=== PATIENT | female | born 1955 | race Caucasian/White ===

== ENCOUNTER → 2020-04-08 10:06 | Outpatient (BNVA) | payer OTHER, SELFPAY | PROVIDERS: Visit Provider Nurse Practitioner Family | DX: I10 Essential (primary) hypertension (principal); R68.89 Other general symptoms and signs; E11.9 Type 2 diabetes mellitus without complications; Z79.899 Other long term (current) drug therapy | CPT/HCPCS: 99214 ==

== ENCOUNTER → 2020-05-19 08:24 | Outpatient (BNVA) | payer OTHER, SELFPAY | PROVIDERS: PCP Internal Medicine; Visit Provider Internal Medicine Endocrinology, Diabetes & Metabolism | DX: E11.9 Type 2 diabetes mellitus without complications (principal); Z79.4 Long term (current) use of insulin; I10 Essential (primary) hypertension; E55.9 Vitamin D deficiency, unspecified; E66.3 Overweight | CPT/HCPCS: 82947; 99212 ==

== ENCOUNTER 2020-05-20 08:35 | Outpatient (REF) | payer OTHER, SELFPAY ==
[2020-05-20 10:40] LABS: Hematocrit 43.7 % (37-47); Hemoglobin 13.8 g/dl (12.0-16.0); Mean Corpuscular HGB Conc 31.6 g/dl (31.0-35.0); Mean Corpuscular Hemoglobin 27.9 pg (27.0-33.0); Mean Corpuscular Volume 88.3 fL (80-98); Mean Platelet Volume 11.4 fL (9.4-12.3); Platelet Count 304 X10*3/uL (160-400); Red Blood Count 4.95 X10*6/uL (4.20-5.50); Red Cell Distribution Width 13.5 % (11.0-16.0); White Blood Count 6.5 X10*3/uL (4.8-10.8)
[2020-05-20 11:28] LABS: Alanine Aminotransferase 15 U/L (0-31); Albumin Level 4.3 g/dL (3.5-5.0); Alkaline Phosphatase 50 U/L (39-117); Anion Gap 13 (12-20); Aspartate Amino Transferase 17 U/L (5-31); Bilirubin Total 0.7 mg/dL (0.0-1.0); Blood Urea Nitrogen 13 mg/dL (9-16); Calcium 9.1 mg/dL (8.4-10.2); Carbon Dioxide 30 mmol/L (22-29); Chloride 101 mmol/L (96-108); Cholesterol 176 mg/dL; Estimated Glomerular Filt Rate > 60; Glucose Fasting 140 mg/dL (60-99); HDL Cholesterol 69 mg/dL; LDL Cholesterol Calculated 95 mg/dl; Potassium 4.5 mmol/l (3.3-5.1); Sodium 139 mmol/L (135-145); Total Protein 7.5 g/dL (6.5-8.0); Triglycerides 62 mg/dL
[2020-05-20 11:44] LABS: Vitamin B12 192 pg/mL (200-900)
[2020-05-20 12:10] LABS: Creatinine Urine 123.69 mg/dL; Microalbum/Creatinine Ratio Ur 8.8 ug/mg cr
[2020-05-21 18:07] LABS: LDL Cholesterol Direct 92 mg/dL (<100)
[2020-05-27 14:17] LABS: Fructosamine 286 umol/L (205-285)
== END 2020-05-20 08:36 | disposition home or self-care (01) ==
LOC: HO.10HDL 08:35
PROVIDERS: Visit Provider Internal Medicine Endocrinology, Diabetes & Metabolism
DX: E11.9 Type 2 diabetes mellitus without complications (principal); Z79.4 Long term (current) use of insulin
CPT/HCPCS: 36415; 80053; 80061; 82043; 82607; 82985; 83721; 85027

== ENCOUNTER → 2020-06-25 14:24 | Outpatient (BNVA) | payer OTHER, SELFPAY | PROVIDERS: PCP Internal Medicine; Visit Provider Dietitian, Registered | DX: Z76.89 Persons encountering health services in other specified circumstances (principal) ==

== ENCOUNTER → 2020-07-28 07:24 | Outpatient (BNVA) | payer OTHER, SELFPAY | PROVIDERS: PCP Internal Medicine; Visit Provider Dietitian, Registered ==

== ENCOUNTER → 2020-09-08 09:51 | Outpatient (BNVA) | payer OTHER, SELFPAY | PROVIDERS: PCP Internal Medicine; Visit Provider Dietitian, Registered ==

== ENCOUNTER → 2020-10-14 08:26 | Outpatient (BNVA) | payer OTHER, SELFPAY | PROVIDERS: PCP Internal Medicine; Visit Provider Internal Medicine Endocrinology, Diabetes & Metabolism | DX: E11.9 Type 2 diabetes mellitus without complications (principal); Z79.4 Long term (current) use of insulin; I10 Essential (primary) hypertension; E55.9 Vitamin D deficiency, unspecified; E66.3 Overweight; E53.8 Deficiency of other specified B group vitamins | CPT/HCPCS: 82947; 99212 ==

== ENCOUNTER → 2020-10-15 09:23 | Outpatient (BNVA) | payer OTHER, SELFPAY | PROVIDERS: PCP Internal Medicine; Visit Provider Internal Medicine Cardiovascular Disease | DX: I10 Essential (primary) hypertension (principal) | CPT/HCPCS: 93005; 99212 ==

== ENCOUNTER → 2021-03-10 09:35 | Outpatient (BNVA) | payer MEDICARE, MEDICAID, SELFPAY | PROVIDERS: PCP Internal Medicine; Visit Provider Dietitian, Registered | DX: E11.9 Type 2 diabetes mellitus without complications (principal); Z79.4 Long term (current) use of insulin | CPT/HCPCS: 97803 ==

== ENCOUNTER → 2021-04-30 09:05 | Outpatient (BNVA) | payer MEDICARE, MEDICAID, SELFPAY | PROVIDERS: PCP Internal Medicine; Visit Provider Nurse Practitioner Gerontology | DX: E11.65 Type 2 diabetes mellitus with hyperglycemia (principal); E55.9 Vitamin D deficiency, unspecified; I10 Essential (primary) hypertension; Z79.4 Long term (current) use of insulin | CPT/HCPCS: 82947; 83036; 99212 ==

== ENCOUNTER 2021-05-05 08:26 | Outpatient (REF) | payer MEDICARE, OTHER, SELFPAY ==
[2021-05-05 10:30] LABS: Alanine Aminotransferase 15 U/L (0-31); Albumin Level 4.1 g/dL (3.5-5.0); Alkaline Phosphatase 53 U/L (39-117); Anion Gap 11 (12-20); Aspartate Amino Transferase 14 U/L (5-31); Bilirubin Total 0.4 mg/dL (0.0-1.0); Blood Urea Nitrogen 15 mg/dL (9-16); Calcium 9.1 mg/dL (8.4-10.2); Carbon Dioxide 29 mmol/L (22-29); Chloride 102 mmol/L (96-108); Cholesterol 179 mg/dL; Estimated Glomerular Filt Rate > 60; Glucose Fasting 137 mg/dL (60-99); HDL Cholesterol 64 mg/dL; LDL Cholesterol Calculated 103 mg/dl; Potassium 4.7 mmol/L (3.3-5.1); Sodium 137 mmol/L (135-145); Total Protein 7.1 g/dL (6.5-8.0); Triglycerides 61 mg/dL
[2021-05-05 10:55] LABS: Vitamin D 25-OH Total 43.1 ng/mL (>30)
[2021-05-05 11:00] LABS: Vitamin B12 336 pg/mL (200-900)
[2021-05-05 14:29] LABS: Creatinine Urine 63.56 mg/dL; Microalbumin Urine < 5.0 mg/L
[2021-05-07 13:30] LABS: LDL Cholesterol Direct 101 mg/dL (<100)
== END 2021-05-05 08:27 | disposition home or self-care (01) ==
LOC: HO.10HDL 08:26
PROVIDERS: Internal Medicine Endocrinology, Diabetes & Metabolism; Visit Provider Nurse Practitioner Gerontology
DX: E11.65 Type 2 diabetes mellitus with hyperglycemia (principal); E55.9 Vitamin D deficiency, unspecified; Z79.4 Long term (current) use of insulin
CPT/HCPCS: 36415; 80053; 80061; 82043; 82306; 82607; 83721

== ENCOUNTER → 2021-08-13 08:43 | Outpatient (BNVA) | payer MEDICARE, SELFPAY | PROVIDERS: PCP Internal Medicine; Visit Provider Nurse Practitioner Gerontology | DX: E11.65 Type 2 diabetes mellitus with hyperglycemia (principal); Z79.4 Long term (current) use of insulin; I10 Essential (primary) hypertension; E55.9 Vitamin D deficiency, unspecified; E66.3 Overweight; E53.8 Deficiency of other specified B group vitamins | CPT/HCPCS: Q3014 ==

== ENCOUNTER 2021-08-23 08:26 | Outpatient (REF) | payer MEDICARE, SELFPAY ==
[2021-08-23 10:43] LABS: Cholesterol 174 mg/dL; HDL Cholesterol 60 mg/dL; LDL Cholesterol Calculated 103 mg/dl; Triglycerides 57 mg/dL
[2021-08-23 11:10] LABS: Estimated Average Glucose 157 mg/dL; Hemoglobin A1c % 7.1 %
[2021-08-23 11:36] LABS: Vitamin B12 357 pg/mL (200-900)
[2021-08-24 14:27] LABS: LDL Cholesterol Direct 100 mg/dL (<100)
== END 2021-08-23 08:27 | disposition home or self-care (01) ==
LOC: HO.10HDL 08:26
PROVIDERS: Visit Provider Nurse Practitioner Gerontology
DX: E11.65 Type 2 diabetes mellitus with hyperglycemia (principal); Z79.4 Long term (current) use of insulin
CPT/HCPCS: 36415; 80061; 82607; 83036; 83721

== ENCOUNTER → 2021-11-10 08:56 | Outpatient (BNVA) | payer MEDICARE, SELFPAY | PROVIDERS: PCP Internal Medicine; Visit Provider Nurse Practitioner Gerontology | DX: E11.65 Type 2 diabetes mellitus with hyperglycemia (principal); E55.9 Vitamin D deficiency, unspecified; I10 Essential (primary) hypertension; E66.3 Overweight; E78.5 Hyperlipidemia, unspecified; E53.8 Deficiency of other specified B group vitamins; Z79.4 Long term (current) use of insulin; Z68.24 Body mass index [BMI] 24.0-24.9, adult | CPT/HCPCS: 82947; 99212 ==

== ENCOUNTER 2022-12-16 08:08 | Outpatient (REF) | payer OTHER, SELFPAY ==
[2022-12-16 11:29] LABS: Appearance Urine Clear; Color Urine Yellow; Glucose Urine UA Negative (Negative); Leukocyte Esterase Urine Negative (Negative); Nitrite Urine Negative (Negative); PH 6.5 (5.0-9.0); Urine Blood Negative (Negative); Urine Ketones Negative (Negative); Urine Protein Negative (Neg-Trace)
[2022-12-16 11:44] LABS: Hematocrit 40.1 % (37.0-47.0); Hemoglobin 12.7 g/dl (12.0-16.0); Mean Corpuscular HGB Conc 31.7 g/dl (31.0-35.0); Mean Corpuscular Hemoglobin 26.8 pg (27.0-33.0); Mean Corpuscular Volume 84.8 fL (80.0-98.0); Mean Platelet Volume 11.4 fL (9.4-12.3); Platelet Count 307 X10*3/uL (160-400); Red Blood Count 4.73 X10*6/uL (4.20-5.50); Red Cell Distribution Width 13.6 % (11.0-16.0); White Blood Count 8.5 X10*3/uL (4.8-10.8)
[2022-12-16 12:18] LABS: Creatinine Urine 143.49 mg/dL; Microalbum/Creatinine Ratio Ur 7.6 ug/mg cr
[2022-12-16 12:22] LABS: Alanine Aminotransferase 17 U/L (0-31); Albumin Level 3.9 g/dL (3.5-5.0); Alkaline Phosphatase 49 U/L (39-117); Anion Gap 12 (12-20); Aspartate Amino Transferase 17 U/L (5-31); Bilirubin Total 0.5 mg/dL (0.0-1.0); Blood Urea Nitrogen 14 mg/dL (9-16); Calcium 9.3 mg/dL (8.4-10.2); Carbon Dioxide 28 mmol/L (22-29); Chloride 102 mmol/L (96-108); Cholesterol 184 mg/dL; Estimated Glomerular Filt Rate > 60; Glucose Fasting 145 mg/dL (60-99); HDL Cholesterol 60 mg/dL; LDL Cholesterol Calculated 111 mg/dl; Potassium 4.1 mmol/L (3.3-5.1); Sodium 138 mmol/L (135-145); Total Protein 7.2 g/dL (6.5-8.0); Triglycerides 68 mg/dL
[2022-12-16 12:25] LABS: TSH reflex Free T4 2.87 uIU/mL (0.32-4.0); Vitamin D 25-OH Total 44.7 ng/mL (>30)
[2022-12-16 12:42] LABS: Folate 4.2 ng/mL (> or = 4.0); Vitamin B12 346 pg/mL (200-900)
== END 2022-12-16 08:09 | disposition home or self-care (01) ==
LOC: HO.WFDLDS 08:08
PROVIDERS: Visit Provider Nurse Practitioner Family
DX: Z00.00 Encounter for general adult medical examination without abnormal findings (principal); E11.9 Type 2 diabetes mellitus without complications; E78.5 Hyperlipidemia, unspecified; F32.9 Major depressive disorder, single episode, unspecified; I10 Essential (primary) hypertension; R68.89 Other general symptoms and signs; E55.9 Vitamin D deficiency, unspecified; E53.8 Deficiency of other specified B group vitamins
CPT/HCPCS: 36415; 80053; 80061; 81003; 82043; 82306; 82607; 82746; 84443; 85027

== ENCOUNTER 2023-02-03 13:09 | Outpatient (AMB) | payer OTHER, SELFPAY ==
--- NOTE | 2023-02-03 13:23 | MHC.PC.OV ---
Vital Signs 02/03/23 13:24 Height 5 ft 8 in Weight 168 lb 6 oz BMI 25.6 BP 134/72 Blood Pressure Location Rt brachial Position Sitting Respiration 12 Pulse 66 Pulse Source Pulse Oximeter Temp 97.6 F Temp Source Temporal Artery Scan Pulse Oximetry (%) 97 Oxygen Delivery Method Room Air Intake Visit Reasons: follow up Intake Note: Patient states she would likw to go over labs that were last done. Surgical Scrub Tech Required: No Surgical Scrub Tech Name: Spouse ( Brian) Accompanied by: Spouse Allergies atorvastatin [Lipitor] Allergy (Unknown, Verified 02/03/23 13:44) unknown cephalexin [Keflex] Allergy (Unknown, Verified 02/03/23 13:44) unknown codeine Allergy (Unknown, Verified 02/03/23 13:44) unknown morphine Allergy (Unknown, Verified 02/03/23 13:44) unknown oxycodone [Percocet] Allergy (Unknown, Verified 02/03/23 13:44) unknown Penicillin Allergy (Unknown, Uncoded 02/03/23 13:44) unknown Medication List - Last Reconciled 02/03/23 by Cedric Friedman CNP albuterol sulfate 90 mcg/actuation (ProAir HFA) 2 puffs inhalation Q6H PRN amlodipine 5 mg PO DAILY 30 days ascorbate calcium (vitamin C) 500 mg PO DAILY aspirin (Adult Low Dose Aspirin) 81 mg PO DAILY blood sugar diagnostic (Zenter Verio test strips) Three times a day FUTURE REFILLS FROM PCP. blood-glucose meter (Zenter Verio Flex Start kit) As directed 3 times a day cholecalciferol (vitamin D3) 25 mcg PO DAILY cyanocobalamin (vitamin B-12) 500 mcg sublingual DAILY 30 days ferrous sulfate 325 mg PO DAILY flash glucose sensor (FreeStyle River 14 Day Sensor kit) every 14 days fluticasone propionate 50 mcg/actuation 1 spray intranasal DAILY insulin glargine (Lantus Solostar U-100 Insulin) 20 units subcut QAM lancets (Aelurosuch Delica Lancets) Three times a day losartan 100 mg PO DAILY 30 days metformin ER 1,000 mg (2 x 500 mg) PO BID 30 days metoprolol tartrate 25 mg PO BID 30 days omeprazole 20 mg PO DAILY 30 days pen needle, diabetic (BD Rosina 2nd Gen Pen Needle) Twice a day sitagliptin phosphate (Januvia) 50 mg PO DAILY 30 days Tobacco use date assessed: 02/03/23 Fall risk assessment: No Falls in past year Last assessed Fall Risk: 02/03/23 Dental Screening Dental Screen Date: 02/03/23 Did you have a dental visit in the last 12 months?: No Did you have a dental problem in the last 6 months where you did not have access to dental care?: No Was dental information given to patient?: Yes HPI HPI Comments History of Present Illness Details 68-year-old female, accompanied by her , presents for diabetes, hypertension, vitamin B12 deficiency, and vitamin-D deficiency follow-up. She established care in October 2022. Her A1c was 7.1%. She notes she has been taking her medications as prescribed. 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 Family/Other Diabetes Mother Mental health disorder Social History Household Members: Spouse Housing: Apartment Alcohol intake: current Alcohol intake frequency: does not drink Patient Tobacco Use Status: Never used Tobacco e-Cigarette/Vaping Use: Never Used service: No Current occupational status: disabled Cognitive needs: No Hearing needs: No Vision needs: No Review of Systems Const Details: Const Denies chills, Denies fatigue, Denies fever(s), Denies headache(s) and Denies weakness ENT Denies dizziness and Denies headache(s) Card Denies chest pain, Denies lightheadedness, Denies dyspnea and Denies other (Palpitations) Resp Denies cough, Denies dyspnea, Denies wheezing and Denies other ( shortness of breath) GI Denies abdominal pain, Denies melena, Denies hematochezia, Denies change in bowel habits, Denies dyspepsia and Denies nausea Denies hematuria and Denies dysuria Musc Denies abnormal gait, Denies myalgias, Denies arthralgias, Denies numbness and Denies tingling Skin/Breast Denies rash, Denies unusual bruising and Denies wounds Neuro Denies abnormal gait, Denies dizziness, Denies headache(s), Denies memory loss, Denies numbness, Denies Sensory deficit (Neuro), Denies tingling and Denies weakness Psych Denies anxiety, Denies depression, Denies memory loss Endo Denies cold intolerance, Denies fatigue, Denies heat intolerance, Denies polydipsia and Denies polyuria Aller/Immun Denies wheezing Physical exam (Primary Care) Vital Signs: Last Vital Signs Temp 97.6 F 02/03/23 13:24 Pulse 66 02/03/23 13:24 Resp 12 02/03/23 13:24 BP 134/72 02/03/23 13:24 Pulse Ox 97 02/03/23 13:24 Oxygen Delivery Method Room Air 02/03/23 13:24 BMI result Body Mass Index 25.6 Tobacco/Smoking Status: Tobacco use Status Patient Tobacco Use Status Never used Tobacco 02/03/23 13:23 e-Cigarette/Vaping Use Never Used 02/03/23 13:23 Const Other: General: no acute distress and well developed Nutritional Appearance: well nourished Orientation/consciousness: patient oriented x3 HENMT Head: Yes normocephalic and Yes atraumatic Eyes General: appearance normal, both eyes and all related structures Pupils: Equal, round and reactive pupils present EOM: EOMs intact bilaterally Resp Effort & Inspection: normal respiratory effort Auscultation: clear to auscultation bilaterally Cardio Rate: regular rate Rhythm: regular rhythm Heart sounds: S1 normal heart sound present, S2 normal heart sound present, no gallops, no murmurs and no rubs GI Palpation (GI): No Abdominal aortic bruit present, Soft to palpation, nontender, No hepatosplenomegaly present and No Rebound tenderness present Auscultation: normal bowel sounds General: Yes no CVA tenderness Back/Spine/Pelvis Back: no CVA tenderness Cervical Spine: cervical ROM normal and No Cervical spine tenderness Thoracic/Lumbar Spine: thoraco-lumbar ROM normal, No pain with thoraco-lumbar ROM, No thoracic spinal tenderness and No lumbar spinal tenderness Extrem General: Yes normal to inspection, No edema and No calf tenderness Skin General: warm and dry. Normal skin color. Normal skin turgor Lesions: no lesions Rashes: no rashes Trauma: no lacerations or abrasions Wounds: no wounds Nails: normal Neuro General: patient oriented x3, gait normal and no focal neuro deficit Cranial nerves: Yes Equal, round and reactive pupils present Cognition (Neuro): normal cognition Gait exam (Neuro): Normal gait present Sensory Exam: No Sensory deficit (Neuro) Psych Appearance: grossly normal Affect: normal affect Attitude: cooperative Thought process: Normal thought process present Results AMB Hemoglobin A1c AMB Hemoglobin A1c 7.9 % Last Edit by Mili Rodrigez MA on 02/03/23 14:07 Assessment and Plan Assessment & Plan (1) HTN (hypertension): Code(s): I10 - Essential (primary) hypertension Qualifiers: Hypertension type: essential hypertension Qualified Code(s): I10 - Essential (primary) hypertension Plan: Blood pressure is 134/72, slightly above goal of less than 130/80 Continue to take amlodipine, losartan, and metoprolol as prescribed Low-sodium diet encouraged Follow-up in 1 month for complete physical exam Return sooner with symptoms or concerns Verbalized understanding and agreed with treatment plan. (2) Diabetes mellitus: Code(s): E11.9 - Type 2 diabetes mellitus without complications Qualifiers: Diabetes mellitus type: type 2 Diabetes mellitus half-way insulin use: with half-way use Diabetes mellitus complication status: with hyperglycemia Qualified Code(s): E11.65 - Type 2 diabetes mellitus with hyperglycemia; Z79.4 - long-term (current) use of insulin Plan: A1c today is 7.9%, above goal of less than 7.0%, increased from previous A1c of 7.1% Continue to take Lantus, metformin, and Januvia as prescribed ADA diet and routine exercise encouraged She had an eye exam early this year Follow-up in 1 month for complete physical exam Return sooner with concerns or symptoms Verbalized understanding and agreed with treatment plan. (3) Vitamin D deficiency: Code(s): E55.9 - Vitamin D deficiency, unspecified Plan: Recent lab results reviewed with the patient Vitamin-D is 44.7, normal Continue with current treatment regimen Informed that exposures sunshine name and taking her vitamin-D levels Follow-up with concerns or symptoms Verbalized understanding and agreed with treatment plan. (4) B12 deficiency: Code(s): E53.8 - Deficiency of other specified B group vitamins Plan: Recent vitamin B12 level is 346, normal Continue with current treatment regimen Follow-up with concerns or symptoms Verbalized understanding and agreed with treatment plan. (5) Hyperlipidemia LDL goal <100: Code(s): E78.5 - Hyperlipidemia, unspecified Plan: Recent LDL level is 111, slightly above goal of less than 100 Her 10 year risk of ASCVD is 17.5% She has allergy to atorvastatin Fenofibrate ordered. Take as prescribed Advised to limit foods high in saturated fat and avoid foods high trans fat Routine exercise encouraged Advised to get fasting blood work done in 3 months Will continue to monitor Verbalized understanding and agreed with the treatment plan. 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
[2023-02-03 13:24] VITALS: BP 134/72; PULSE 66; RESP 12; TEMP 36.4; O2SAT 97; BMI 25.6
== END 2023-02-03 13:57 | disposition home or self-care (01) ==
PROVIDERS: PCP Hospitalist; Visit Provider Nurse Practitioner Family
DX: I10 Essential (primary) hypertension (principal); E11.65 Type 2 diabetes mellitus with hyperglycemia; Z79.4 Long term (current) use of insulin; E55.9 Vitamin D deficiency, unspecified; E53.8 Deficiency of other specified B group vitamins; E78.5 Hyperlipidemia, unspecified
CPT/HCPCS: 83036; 99213

== ENCOUNTER 2023-03-30 08:24 | Outpatient (AMB) | payer OTHER, SELFPAY ==
[2023-03-30 08:33] VITALS: BP 126/64; PULSE 60; RESP 12; TEMP 36.4; O2SAT 99; BMI 25.9
--- NOTE | 2023-03-30 08:33 | MHC.PC.OV ---
Vital Signs 03/30/23 08:33 Height 5 ft 8 in Weight 170 lb 2 oz BMI 25.9 BP 126/64 Blood Pressure Location Lt brachial Position Sitting Respiration 12 Pulse 60 Pulse Source Pulse Oximeter Temp 97.6 F Temp Source Temporal Artery Scan Pulse Oximetry (%) 99 Oxygen Delivery Method Room Air Intake Visit Reasons: CPE Intake Note: Patient would like refill for her test strips and would like all her medication to be sent for 90 days with refills from now on due insurance giving them a hard time when they go to pharmacy. Application Integrator Required: Yes Application Integrator Name: Accompanied by: Spouse Allergies atorvastatin [Lipitor] Allergy (Unknown, Verified 03/30/23 08:47) unknown cephalexin [Keflex] Allergy (Unknown, Verified 03/30/23 08:47) unknown codeine Allergy (Unknown, Verified 03/30/23 08:47) unknown morphine Allergy (Unknown, Verified 03/30/23 08:47) unknown oxycodone [Percocet] Allergy (Unknown, Verified 03/30/23 08:47) unknown Penicillin Allergy (Unknown, Uncoded 03/30/23 08:47) unknown Medication List - Last Reconciled 03/30/23 by Cedric Friedman CNP albuterol sulfate 90 mcg/actuation (ProAir HFA) 2 puffs inhalation Q6H PRN amlodipine 5 mg PO DAILY 30 days ascorbate calcium (vitamin C) 500 mg PO DAILY aspirin (Adult Low Dose Aspirin) 81 mg PO DAILY 90 days blood sugar diagnostic ([employer] Verio test strips) Three times a day FUTURE REFILLS FROM PCP. blood-glucose meter (PokelaboTouch Verio Flex Start kit) As directed 3 times a day cholecalciferol (vitamin D3) 25 mcg PO DAILY 30 days cyanocobalamin (vitamin B-12) 500 mcg sublingual DAILY 30 days fenofibrate 54 mg PO DAILY 90 days ferrous sulfate 325 mg PO DAILY flash glucose sensor (FreeStyle River 14 Day Sensor kit) every 14 days fluticasone propionate 50 mcg/actuation 1 spray intranasal DAILY insulin glargine (Lantus Solostar U-100 Insulin) 20 units subcut QAM lancets (PokelaboTouch Delica Lancets) Three times a day losartan 100 mg PO DAILY 30 days metformin ER 1,000 mg (2 x 500 mg) PO BID 30 days metoprolol tartrate 25 mg PO BID 30 days omeprazole 20 mg PO DAILY 30 days pen needle, diabetic (BD Rosina 2nd Gen Pen Needle) Twice a day sitagliptin phosphate (Januvia) 50 mg PO DAILY 30 days Tobacco use date assessed: 02/03/23 Fall risk assessment: No Falls in past year Last assessed Fall Risk: 03/30/23 Dental Screening Dental Screen Date: 03/30/23 Did you have a dental visit in the last 12 months?: No Did you have a dental problem in the last 6 months where you did not have access to dental care?: No Was dental information given to patient?: Yes HPI HPI Comments History of Present Illness Details 68-year-old Syrian-speaking female, accompanied by , presents for a complete physical exam. Her last office visit was on 02/03/2023. She has past medical history significant for hypertension, type 2 diabetes on insulin, hyperlipidemia, vitamin-D deficiency, vitamin B12 deficiency, iron deficiency anemia, and GERD. She has h/o depression with controlled symptoms without medications or psychotherapy. She admits to taking her medications as prescribed and making healthy dietary choices. She notes that she has not been exercising. She offers no complaints and denies acute symptoms at this time. She states that she had an eye exam a year ago and has a f/u exam in 06/2023. She notes that her last mammogram was on 04/2022 at [facility]: normal She states that her last colonoscopy was 7 yrs ago at [facility]: benign polyps She states that her last bone scan was 5 years ago: normal She states that she is up-to-date on the pneumonia vaccine. 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 Family/Other Diabetes Mother Mental health disorder Social History Household Members: Spouse Housing: Apartment Alcohol intake: current Alcohol intake frequency: does not drink Patient Tobacco Use Status: Never used Tobacco e-Cigarette/Vaping Use: Never Used service: No Current occupational status: disabled Cognitive needs: No Hearing needs: No Vision needs: No Review of Systems Const Details: Denies chills, Denies fatigue, Denies fever(s), Denies headache(s) and Denies weakness HEENT Denies change in vision, Denies dizziness, Denies headache(s), Denies hearing loss, Denies nasal congestion, Denies sinus pain, Denies sinus pressure and Denies sore throat Card Denies chest pain, Denies lightheadedness, Denies dyspnea and Denies other (palpitations) Resp Denies cough, Denies dyspnea and Denies wheezing GI Denies abdominal pain, Denies melena, Denies hematochezia, Denies change in bowel habits, Denies dyspepsia and Denies nausea Denies hematuria and Denies dysuria Musc Denies abnormal gait, Denies myalgias, Denies arthralgias, Denies numbness and Denies tingling Skin/Breast Denies rash, Denies unusual bruising and Denies wounds Neuro Denies abnormal gait, Denies dizziness, Denies headache(s), Denies memory loss, Denies numbness, Denies Sensory deficit (Neuro), Denies tingling and Denies weakness Psych Denies anxiety, Denies depression and Denies memory loss Endo Denies cold intolerance, Denies fatigue, Denies heat intolerance, Denies polydipsia and Denies polyuria Marshall/Lymph Denies easy bleeding and Denies easy bruising Aller/Immun Denies wheezing Physical exam (Primary Care) Vital Signs: Last Vital Signs Temp 97.6 F 03/30/23 08:33 Pulse 60 03/30/23 08:33 Resp 12 03/30/23 08:33 BP 126/64 03/30/23 08:33 Pulse Ox 99 03/30/23 08:33 Oxygen Delivery Method Room Air 03/30/23 08:33 BMI result Body Mass Index 25.9 Tobacco/Smoking Status: Tobacco use Status Tobacco use date assessed 02/03/23 02/03/23 13:41 Patient Tobacco Use Status Never used Tobacco 02/03/23 13:23 e-Cigarette/Vaping Use Never Used 02/03/23 13:23 Const Other: General: no acute distress, well developed, alert and awake Nutritional Appearance: well nourished Orientation/consciousness: patient oriented x3 [facility] Head: Yes normocephalic and Yes atraumatic Ears: hearing grossly normal bilaterally and TM's normal bilaterally General nose exam: Normal external nose present and Normal nares present Mouth: Normal oral and palatal mucosa present and moist mucous membranes Teeth and gingiva: dentition normal Throat: Yes oropharynx normal Eyes Pupils: Equal, round and reactive pupils present and Pupil accommodation reflex normal EOM: EOMs intact bilaterally Neck Neck: Yes normal visual inspection, Yes no lymphadenopathy and Yes trachea midline Thyroid: Thyroid normal Carotids: no bruits Lymphatic: no lymphadenopathy noted Chest Chest palpation & inspection: normal inspection of the chest Resp Effort & Inspection: normal respiratory effort Auscultation: clear to auscultation bilaterally Cardio Rate: regular rate Rhythm: regular rhythm Heart sounds: S1 normal heart sound present, S2 normal heart sound present, no gallops, no murmurs and no rubs Bruits: no abdominal aortic bruits and no carotid bruits GI Palpation (GI): No Abdominal aortic bruit present, Soft to palpation, nontender, No hepatosplenomegaly present and No Rebound tenderness present Auscultation: normal bowel sounds General: Yes no CVA tenderness Back/Spine/Pelvis Back: no CVA tenderness Levoscoliosis Cervical Spine: cervical ROM normal and No Cervical spine tenderness Thoracic/Lumbar Spine: thoraco-lumbar ROM limited, No pain with thoraco-lumbar ROM, No thoracic spinal tenderness and No lumbar spinal tenderness Skin General: warm and dry. Normal skin color. Normal skin turgor Lesions: no lesions Rashes: no rashes Trauma: no lacerations or abrasions Wounds: no wounds Nails: normal Neuro General: patient oriented x3, gait normal and CN's II-XI intact bilaterally Cranial nerves: Yes Equal, round and reactive pupils present Cognition (Neuro): normal cognition Gait exam (Neuro): Normal gait present Motor exam (neuro): 5/5 motor strength present throughout Sensory Exam: No Sensory deficit (Neuro) Deep tendon reflexes (DTR's): Right patellar reflex intensity grade: 2+ and Left patellar reflex intensity grade: 2+ Extrem General: Yes normal to inspection, No edema and No calf tenderness Psych Appearance: grossly normal Affect: normal affect Attitude: cooperative Thought process: Normal thought process present Assessment and Plan Assessment & Plan (1) Normal physical examination, routine: Code(s): Z00.00 - Encounter for general adult medical examination without abnormal findings Plan: Some amount of physical restrictions or limitations due to stiff joints and level scoliosis noted Stretching and routine exercise encouraged Will check lipid panel. Advised to fast for 10-12 hours and get blood work done before next visit Follow-up in 1 month for diabetes, hypertension, and hyperlipidemia follow-up Return sooner with symptoms or concerns Verbalized understanding and agreed with treatment plan. Interpretation by the patient's per the patient's request. (2) HTN (hypertension): Code(s): I10 - Essential (primary) hypertension Qualifiers: Hypertension type: essential hypertension Qualified Code(s): I10 - Essential (primary) hypertension Plan: Blood pressure is 126/64, within goal of less than 130/80 Continue with current treatment regimen Low-sodium diet encouraged Follow-up in 1 month Verbalized understanding and agreed with treatment plan. (3) Colon cancer screening: Code(s): Z12.11 - Encounter for screening for malignant neoplasm of colon Plan: She states that her last colonoscopy was 7 yrs ago at [facility]: benign polyps Referred to [facility] for a colonoscopy (4) Age-related osteoporosis without current pathological fracture: Code(s): M81.0 - Age-related osteoporosis without current pathological fracture Plan: She states that her last bone scan was 5 years ago: normal DEXA scan ordered for osteoporosis screening (5) Levoscoliosis: Code(s): M41.80 - Other forms of scoliosis, site unspecified Plan: No acute symptoms Limited range of motion of the lumbar and thoracic spine Return with symptoms or concerns Verbalized understanding and agreed with the plan. Orders: Orders Lipid Panel Today E78.5 - Hyperlipidemia, unspecified XR DEXA axial skeleton Today M81.0 - Age-related osteoporosis without current pathological fracture Referrals Gastroenterology Referral Z12.11 - Encounter for screening for malignant neoplasm of colon Medications: Changed From amlodipine 5 mg PO DAILY 30 days 30 tabs 3RF To amlodipine 5 mg PO DAILY 90 days 90 tabs 1RF From omeprazole 20 mg PO DAILY 30 days 30 caps 3RF To omeprazole 20 mg PO DAILY 90 days 90 caps 1RF From sitagliptin phosphate (Januvia) 50 mg PO DAILY 30 days 30 tabs 3RF To sitagliptin phosphate (Januvia) 50 mg PO DAILY 90 days 90 tabs 1RF Refilled blood sugar diagnostic (OneTouch Verio test strips) Three times a day FUTURE REFILLS FROM PCP. 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
== END 2023-03-30 09:11 | disposition home or self-care (01) ==
PROVIDERS: PCP Hospitalist; Visit Provider Nurse Practitioner Family
DX: Z00.00 Encounter for general adult medical examination without abnormal findings (principal); I10 Essential (primary) hypertension; M81.0 Age-related osteoporosis without current pathological fracture; E11.9 Type 2 diabetes mellitus without complications
CPT/HCPCS: 99397

== ENCOUNTER 2023-04-25 10:14 | Outpatient (REF) | payer OTHER, SELFPAY ==
--- NOTE | ~2023-04-25 | MM_ITS ---
EXAMINATION: BONE DENSITOMETRY CLINICAL INDICATION: Age-related osteoporosis without current pathological fracture. COMPARISON: This is the patient's baseline examination. TECHNIQUE: Using a Bloominous DXA System (software version: 13.1) manufactured by [employer], dual-energy x-ray absorptiometry was performed of the lumbar spine and left hip. The images are of good technical quality. Summary results are attached. FINDINGS: LEFT FEMUR, NECK: BMD 0.997 g/cm2, Z-score 1.0, T-score -0.3, normal. LEFT FEMUR, TOTAL: BMD 1.036 g/cm2, Z-score 1.2, T-score 0.2, normal. AP SPINE L1-L4: BMD 1.149 g/cm2, Z-score 0.9, T-score -0.3, normal. IDENTIFIED RISK FACTORS: Early menopause, secondary osteoporosis, hysterectomy, bilateral oophorectomy. HISTORY OF FRACTURE: None listed. MEDICATIONS: Vitamin D. MM/XR DEXA axial skeleton IMPRESSION: 1. DIAGNOSIS: Normal bone density based on the lowest T-score value of -0.3 in the femoral neck and lumbar spine applying World Health Organization criteria. 2. 10-YEAR FRACTURE RISK PREDICTION, FRAX: According to the guidelines, FRAX calculation should only be performed on patients in the osteopenia bone density category. Therefore, FRAX was not performed on this patient. 3. Treatment Recommendations: NOF guidelines recommend consideration for treatment in postmenopausal women and men age 50 and older presenting with the following: -A hip or vertebral (clinical or morphometric) fracture. -T-score less than or equal to -2.5 at the femoral neck or spine after appropriate evaluation to exclude secondary causes. -Low bone mass at the hip or spine and a 10-year fracture probability by FRAX of greater than or equal to 3% for hip fracture or greater than or equal to 20% for major osteoporotic fracture based on the [place] adapted WHO algorithm. 4. Other Recommendations: All treatment decisions require clinical judgment and consideration of individual patient factors, including patient preferences, comorbidities, previous drug use, risk factors not captured in the FRAX model (e.g. frailty, falls, vitamin D deficiency, increased bone turnover, interval significant decline in bone density) and possible under or overestimation of fracture risk by FRAX. FUTURE SCAN RECOMMENDATION: People with diagnosed cases of osteoporosis or at high risk for fracture should have regular bone mineral density tests. For patients eligible for Medicare, routine testing is allowed once every 2 years. The testing frequency can be increased to one year for patients who have rapidly progressing disease, those who are receiving or discontinuing medical therapy to restore bone mass, or have additional risk factors.
== END 2023-04-25 10:15 | disposition home or self-care (01) ==
LOC: HO.MAMMO 10:14
PROVIDERS: PCP Nurse Practitioner Family; Visit Provider Nurse Practitioner Family
DX: Z13.820 Encounter for screening for osteoporosis (principal); M81.0 Age-related osteoporosis without current pathological fracture; Z78.0 Asymptomatic menopausal state
CPT/HCPCS: 77080

== ENCOUNTER 2023-05-01 08:26 | Outpatient (REF) | payer OTHER, SELFPAY ==
[2023-05-01 11:45] LABS: Cholesterol 181 mg/dL (<200); HDL Cholesterol 62 mg/dL (>40); LDL Cholesterol Calculated 104 mg/dL (<100); Triglycerides 78 mg/dL (<150)
== END 2023-05-01 08:27 | disposition home or self-care (01) ==
LOC: HO.WFDLDS 08:26
PROVIDERS: Visit Provider Nurse Practitioner Family
DX: E78.5 Hyperlipidemia, unspecified (principal)
CPT/HCPCS: 36415; 80061

== ENCOUNTER 2023-05-04 12:17 | Outpatient (AMB) | payer OTHER, SELFPAY ==
[2023-05-04 12:31] VITALS: BP 128/70; PULSE 57; RESP 12; TEMP 36.4; O2SAT 99; BMI 25.7
--- NOTE | 2023-05-04 12:31 | MHC.PC.OV ---
Vital Signs 05/04/23 12:31 Height 5 ft 8 in Weight 169 lb BMI 25.7 BP 128/70 Blood Pressure Location Lt brachial Position Sitting Respiration 12 Pulse 57 Pulse Source Pulse Oximeter Temp 97.5 F Temp Source Temporal Artery Scan Pulse Oximetry (%) 99 Oxygen Delivery Method Room Air Intake Visit Reasons: 1 mos DM, HLD, HTN Intake Note: Patient would like to gi over bone density testing as well as blood work that was done 05/01/23. Patient had bone density done 04/25/23. Bookkeeper Assistant Required: Yes Bookkeeper Assistant Name: Brian () Accompanied by: Allergies atorvastatin [Lipitor] Allergy (Unknown, Verified 05/04/23 12:52) unknown cephalexin [Keflex] Allergy (Unknown, Verified 05/04/23 12:52) unknown codeine Allergy (Unknown, Verified 05/04/23 12:52) unknown morphine Allergy (Unknown, Verified 05/04/23 12:52) unknown oxycodone [Percocet] Allergy (Unknown, Verified 05/04/23 12:52) unknown Penicillin Allergy (Unknown, Uncoded 05/04/23 12:52) unknown Medication List - Last Reconciled 05/04/23 by Cedric Friedman CNP albuterol sulfate 90 mcg/actuation (ProAir HFA) 2 puffs inhalation Q6H PRN amlodipine 5 mg PO DAILY 90 days ascorbate calcium (vitamin C) 500 mg PO DAILY aspirin (Adult Low Dose Aspirin) 81 mg PO DAILY 90 days blood sugar diagnostic ([employer]orSearch Verio test strips) Three times a day FUTURE REFILLS FROM PCP. blood-glucose meter (BoardProspectsTouch Verio Flex Start kit) As directed 3 times a day cholecalciferol (vitamin D3) 25 mcg PO DAILY 30 days cyanocobalamin (vitamin B-12) 500 mcg sublingual DAILY 30 days fenofibrate 54 mg PO DAILY 90 days ferrous sulfate 325 mg PO DAILY flash glucose sensor (FreeStyle River 14 Day Sensor kit) every 14 days fluticasone propionate 50 mcg/actuation 1 spray intranasal DAILY insulin glargine (Lantus Solostar U-100 Insulin) 20 units subcut QAM lancets (BoardProspectsTouch Delica Lancets) Three times a day losartan 100 mg PO DAILY 30 days metformin ER 1,000 mg (2 x 500 mg) PO BID 30 days metoprolol tartrate 25 mg PO BID 30 days omeprazole 20 mg PO DAILY 90 days pen needle, diabetic (BD Rosina 2nd Gen Pen Needle) Twice a day sitagliptin phosphate (Januvia) 50 mg PO DAILY 90 days Tobacco use date assessed: 02/03/23 Fall risk assessment: No Falls in past year Last assessed Fall Risk: 05/04/23 Dental Screening Dental Screen Date: 05/04/23 Did you have a dental visit in the last 12 months?: Yes Did you have a dental problem in the last 6 months where you did not have access to dental care?: No Was dental information given to patient?: Patient has dentist HPI HPI Comments History of Present Illness Details 68-year-old female, accompanied by her , presents for hypertension, hyperlipidemia, and diabetes follow-up She admits to taking her medications as prescribed She notes she has been maintaining healthy diet. She has not been exercising She offers no complaints and denies acute symptoms at this time. 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 Family/Other Diabetes Mother Mental health disorder Social History Household Members: Spouse Housing: Apartment Alcohol intake: current Alcohol intake frequency: does not drink Patient Tobacco Use Status: Never used Tobacco e-Cigarette/Vaping Use: Never Used service: No Current occupational status: disabled Cognitive needs: No Hearing needs: No Vision needs: No Review of Systems Const Details: Const Denies chills, Denies fatigue, Denies fever(s), Denies headache(s) and Denies weakness ENT Denies dizziness and Denies headache(s) Card Denies chest pain, Denies lightheadedness, Denies dyspnea and Denies other (Palpitations) Resp Denies cough, Denies dyspnea, Denies wheezing and Denies other ( shortness of breath) GI Denies abdominal pain, Denies melena, Denies hematochezia, Denies change in bowel habits, Denies dyspepsia and Denies nausea Denies hematuria and Denies dysuria Musc Denies abnormal gait, Denies myalgias, Denies arthralgias, Denies numbness and Denies tingling Skin/Breast Denies rash, Denies unusual bruising and Denies wounds Neuro Denies abnormal gait, Denies dizziness, Denies headache(s), Denies memory loss, Denies numbness, Denies Sensory deficit (Neuro), Denies tingling and Denies weakness Psych Denies anxiety, Denies depression, Denies memory loss Endo Denies cold intolerance, Denies fatigue, Denies heat intolerance, Denies polydipsia and Denies polyuria Aller/Immun Denies wheezing Physical exam (Primary Care) Vital Signs: Last Vital Signs Temp 97.5 F 05/04/23 12:31 Pulse 57 05/04/23 12:31 Resp 12 05/04/23 12:31 BP 128/70 05/04/23 12:31 Pulse Ox 99 05/04/23 12:31 Oxygen Delivery Method Room Air 05/04/23 12:31 BMI result Body Mass Index 25.7 Tobacco/Smoking Status: Tobacco use Status Tobacco use date assessed 02/03/23 05/04/23 12:36 Patient Tobacco Use Status Never used Tobacco 05/04/23 12:36 e-Cigarette/Vaping Use Never Used 05/04/23 12:36 Const Other: General: no acute distress and well developed Nutritional Appearance: well nourished Orientation/consciousness: patient oriented x3 HENMT Head: Yes normocephalic and Yes atraumatic Eyes General: appearance normal, both eyes and all related structures Pupils: Equal, round and reactive pupils present EOM: EOMs intact bilaterally Resp Effort & Inspection: normal respiratory effort Auscultation: clear to auscultation bilaterally Cardio Rate: regular rate Rhythm: regular rhythm Heart sounds: S1 normal heart sound present, S2 normal heart sound present, no gallops, no murmurs and no rubs GI Palpation (GI): No Abdominal aortic bruit present, Soft to palpation, nontender, No hepatosplenomegaly present and No Rebound tenderness present Auscultation: normal bowel sounds General: Yes no CVA tenderness Back/Spine/Pelvis Back: no CVA tenderness Cervical Spine: cervical ROM normal and No Cervical spine tenderness Thoracic/Lumbar Spine: thoraco-lumbar ROM normal, No pain with thoraco-lumbar ROM, No thoracic spinal tenderness and No lumbar spinal tenderness Extrem General: Yes normal to inspection, No edema and No calf tenderness Skin General: warm and dry. Normal skin color. Normal skin turgor Neuro General: patient oriented x3, gait normal and no focal neuro deficit Cranial nerves: Yes Equal, round and reactive pupils present Cognition (Neuro): normal cognition Gait exam (Neuro): Normal gait present Sensory Exam: No Sensory deficit (Neuro) Psych Appearance: grossly normal Affect: normal affect Attitude: cooperative Thought process: Normal thought process present Results AMB Hemoglobin A1c AMB Hemoglobin A1c 7.0 % Last Edit by Mili Rodrigez MA on 05/04/23 12:52 Assessment and Plan Assessment & Plan (1) HTN (hypertension): Code(s): I10 - Essential (primary) hypertension Qualifiers: Hypertension type: essential hypertension Qualified Code(s): I10 - Essential (primary) hypertension Plan: Blood pressure is 128/70, goal of less than 130/80 Continue to take amlodipine, losartan, and metoprolol as prescribed Low-sodium diet encouraged Follow-up in 3 months or return sooner with symptoms or concerns Verbalized understanding and agreed with treatment plan. (2) Diabetes mellitus: Code(s): E11.9 - Type 2 diabetes mellitus without complications Qualifiers: Diabetes mellitus type: type 2 Diabetes mellitus intermission coordinator insulin use: with intermission coordinator use Diabetes mellitus complication status: with hyperglycemia Qualified Code(s): E11.65 - Type 2 diabetes mellitus with hyperglycemia; Z79.4 - USP (current) use of insulin Plan: Her A1c 7.0% today, slightly above goal of less than 7.0%. Previous A1c was 7.9% Continue with current treatment regimen ADA diet and routine exercise encouraged Follow-up in 3 months Verbalized understanding and agreed with treatment plan. (3) Hyperlipidemia LDL goal <100: Code(s): E78.5 - Hyperlipidemia, unspecified Plan: Recent labs and imaging reviewed with the patient LDL of improved, 104, above goal of less than 70 Continue with current treatment regimen Advised to limit foods high in saturated fat and avoid foods high trans fat Routine exercise encouraged Will recheck lipid levels in 3 months. Advised to fast for 10-12 hours, may drink water only, and get blood work done before next visit Follow-up in 3 months Verbalized understanding and agreed with treatment plan. DEXA scan results reviewed with the patient Orders: Orders Lipid Panel 3 Months E78.5 - Hyperlipidemia, unspecified Coding Level of Care Code Est Pt Level 3 (88989) Diagnoses Essential hypertension I10 Hypertension type: essential hypertension Type 2 diabetes mellitus with hyperglycemia, with long-term current use of insulin E11.65; Z79.4 Diabetes mellitus type: type 2 Diabetes mellitus intermission coordinator insulin use: with penitentiary use Diabetes mellitus complication status: with hyperglycemia Hyperlipidemia LDL goal <100 E78.5
== END 2023-05-04 13:06 | disposition home or self-care (01) ==
PROVIDERS: PCP Nurse Practitioner Family; Visit Provider Nurse Practitioner Family
DX: I10 Essential (primary) hypertension (principal); E11.65 Type 2 diabetes mellitus with hyperglycemia; Z79.4 Long term (current) use of insulin; E78.5 Hyperlipidemia, unspecified
CPT/HCPCS: 99213

== ENCOUNTER 2023-05-24 08:32 | Outpatient (AMB) | payer OTHER, SELFPAY ==
[2023-05-24 08:34] VITALS: BP 158/70; PULSE 61; BMI 25.6
--- NOTE | 2023-05-24 08:34 | MHC.OFFVIS ---
Intake Vital Signs 05/24/23 08:34 Height 5 ft 8 in Weight 168 lb 6.931 oz BMI 25.6 BP 158/70 H Blood Pressure Location Lt brachial Position Sitting Pulse 61 Intake Visit Reasons: Colonoscopy Screening Intake Note: colonoscopy screening Square Dance Caller Required: No Accompanied by: Spouse Allergies atorvastatin [Lipitor] Allergy (Unknown, Verified 05/24/23 08:37) unknown cephalexin [Keflex] Allergy (Unknown, Verified 05/24/23 08:37) unknown codeine Allergy (Unknown, Verified 05/24/23 08:37) unknown morphine Allergy (Unknown, Verified 05/24/23 08:37) unknown oxycodone [Percocet] Allergy (Unknown, Verified 05/24/23 08:37) unknown Penicillin Allergy (Unknown, Uncoded 05/24/23 08:37) unknown HPI Colonoscopy Screening HPI Details 68 year old? female here today for pre colonoscopy screening.? Patient was sent to us by her PCP.? Last colonoscopy was done 5 years ago in [facility]. Patient reports she had polyps then. Unsure what biopsy showed. Patient has a family member on her father's side that was diagnosed with colorectal cancer.? Patient denies any gastrointestinal symptoms in the past or at present, however patient does report that she is taking omeprazole 20 mg for acid reflux that has been suppressed. Occasional postprandial abdominal bloating, feeling gassy. Patient reports that she is moving her bowels completely every day.? ? Denies history of difficulty with sedation or anesthesia in the past.? Negative for history of sleep apnea.? Denies any history of cardiac, renal, pulmonary, or hepatic disease.?? No history of infectious? diseases like hepatitis A, B, C, HIV or tuberculosis.? Patient is on low-dose aspirin. [facility] Medical History B12 deficiency Overweight (BMI 25.0-29.9) care home (current) use of insulin HTN (hypertension) Depression GERD (gastroesophageal reflux disease) Diabetes mellitus Vitamin D deficiency Surgical History Hx of cholecystectomy Hx of hysterectomy Family History Father Lung cancer Mother No problems noted. Family/Other Diabetes Mother Mental health disorder Social History Household Members: Spouse Housing: Apartment Alcohol intake: current Alcohol intake frequency: does not drink Patient Tobacco Use Status: Never used Tobacco e-Cigarette/Vaping Use: Never Used service: No Current occupational status: disabled Cognitive needs: No Hearing needs: No Vision needs: No Review of Systems Const Denies weight gain and Denies weight loss ENT Reports no additional complaints, Denies dysphagia and Denies odynophagia Card Reports no additional complaints Resp Reports no additional complaints GI Denies abdominal pain, Denies belching, Denies melena, Reports bloating, Denies change in bowel habits, Denies dysphagia, Denies excessive flatus, Denies dyspepsia, Denies heartburn, Denies diarrhea, Denies loose stools, Denies nausea, Denies odynophagia and Denies vomiting Reports no additional complaints Musc Reports no additional complaints Neuro Reports no additional complaints Psych Reports no additional complaints Endo Reports no additional complaints Physical Exam Vital Signs: Last Vital Signs Pulse 61 05/24/23 08:34 BP 158/70 H 05/24/23 08:34 BMI result Body Mass Index 25.6 Const General: healthy appearing, no acute distress and well developed Nutritional Appearance: well nourished Orientation/consciousness: patient oriented x3 HEENT Head: Yes normal to inspection, Yes normocephalic and Yes atraumatic Face and sinus: Yes normal facial exam Mouth: Normal oral and palatal mucosa present Throat: Yes posterior oropharynx normal, Yes tonsils normal and Yes uvula midline Eyes General: appearance normal, both eyes and all related structures Neck Neck: Yes normal visual inspection, Yes full ROM and Yes trachea midline Thyroid: Thyroid normal Resp Effort & Inspection: normal respiratory effort, able to speak in complete sentences, no tracheal deviation and symmetric chest movement Auscultation: clear to auscultation bilaterally Cardio Rate: regular rate GI Inspection: Yes normal to inspection and No distended Palpation (GI): Soft to palpation, not firm, nontender and No hepatosplenomegaly present Auscultation: normal bowel sounds General: Yes no CVA tenderness Back/Spine/Pelvis Back: no CVA tenderness Skin General skin exam: elasticity normal, turgor normal and dry skin Neuro General: patient oriented x3 Psych Appearance: grossly normal Mental Status: mental status grossly normal Assessment & Plan Assessment & Plan (1) Colon cancer screening: Code(s): Z12.11 - Encounter for screening for malignant neoplasm of colon (2) GERD (gastroesophageal reflux disease): Code(s): K21.9 - Gastro-esophageal reflux disease without esophagitis Plan Patient denies any GI, cardiac or respiratory symptoms.? Denies any issues with anesthesia in the past.? Denies any history of sleep apnea.? No history the of infectious diseases in the past or present.? Patient is diabetic, takes Lantus and metformin. Patient takes Lantus in the morning, she can take half of the Lantus day before the procedure hold the Lantus the day of the procedure if her procedures in the morning and take it when she gets back home. Patient is on his low-dose aspirin.? Paternal uncle was diagnosed with colorectal cancer.? Patient denies melena, hematochezia, unintentional weight loss or ribbon like stools.? Patient reports acid reflux suppressed with omeprazole. Patient reports occasional postprandial abdominal bloating depending on what she eats in the left upper quadrant. She reports that she moves her bowels every day. Discussed at length the pre-procedure,? prep, diet & medications as well as what to expect prior, during and after the procedure.?? Stressed the importance of good bowel prep. ?Recommended the use of Vaseline or Calmoseptine OTC & baby wipes with bowel movements to promote comfort.? ?Patient verbalizes understanding and agrees to plan of care.? She was given the opportunity to ask questions and all questions answered.? We will see her after the procedure.? Medications: New bisacodyl (Dulcolax (bisacodyl)) take 4 tabs at noon the day before your colonoscopy 20 mg (4 x 5 mg) PO ONCE 1 day 4 tabs 0RF Z12.11 - Encounter for screening for malignant neoplasm of colon polyethylene glycol 3350 (Miralax) As directed by gastroenterology department at [facility] 238 grams PO ONCE 238 grams 0RF Z12.11 - Encounter for screening for malignant neoplasm of colon Coding Level of Care Code New Pt Level 3 (63027) Diagnoses Colon cancer screening Z12.11 GERD (gastroesophageal reflux disease) K21.9 Time Spent (min) 40 Comment 30 minutes spent with patient and additional 10 minutes spent reviewing her records
== END 2023-05-24 10:08 | disposition home or self-care (01) ==
PROVIDERS: PCP Nurse Practitioner Family; Visit Provider Nurse Practitioner Family
DX: Z01.818 Encounter for other preprocedural examination (principal); Z12.11 Encounter for screening for malignant neoplasm of colon; Z86.010 Personal history of colon polyps; K21.9 Gastro-esophageal reflux disease without esophagitis
CPT/HCPCS: 99202

== ENCOUNTER → 2023-05-24 08:32 | Outpatient (BNVA) | payer OTHER, SELFPAY | PROVIDERS: PCP Nurse Practitioner Family; Visit Provider Nurse Practitioner Family | DX: Z12.11 Encounter for screening for malignant neoplasm of colon (principal); K21.9 Gastro-esophageal reflux disease without esophagitis | CPT/HCPCS: 99202 ==

== ENCOUNTER 2023-09-12 10:56 | Outpatient (AMB) | payer OTHER, SELFPAY ==
--- NOTE | 2023-09-12 11:03 | MHC.PC.OV ---
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 Required: No Pinsetter Mechanic Helper Name: spouse Accompanied by: Spouse Allergies atorvastatin [Lipitor] Allergy (Unknown, Verified 09/12/23 11:26) unknown cephalexin [Keflex] Allergy (Unknown, Verified 09/12/23 11:26) unknown codeine Allergy (Unknown, Verified 09/12/23 11:26) unknown morphine Allergy (Unknown, Verified 09/12/23 11:26) unknown oxycodone [Percocet] Allergy (Unknown, Verified 09/12/23 11:26) unknown Penicillin Allergy (Unknown, Uncoded 09/12/23 11:26) unknown Medication List - Last Reconciled 09/12/23 by Cedric Friedman CNP albuterol sulfate 90 mcg/actuation (ProAir HFA) 2 puffs inhalation Q6H PRN amlodipine 5 mg PO DAILY 90 days ascorbate calcium (vitamin C) 500 mg PO DAILY aspirin (Adult Low Dose Aspirin) 81 mg PO DAILY 90 days bisacodyl (Dulcolax (bisacodyl)) 20 mg (4 x 5 mg) PO ONCE 1 day blood sugar diagnostic ([employer] Verio test strips) Three times a day FUTURE REFILLS FROM PCP. blood-glucose meter ([employer] Verio Flex Start kit) As directed 3 times a day cholecalciferol (vitamin D3) 25 mcg PO DAILY 30 days cyanocobalamin (vitamin B-12) 500 mcg sublingual DAILY 30 days fenofibrate 54 mg PO DAILY 90 days flash glucose sensor ([employer] [place] 14 Day Sensor kit) every 14 days fluticasone propionate 50 mcg/actuation 1 spray intranasal DAILY insulin glargine (Lantus Solostar U-100 Insulin) 20 units subcut QAM lancets ([email or web address] Delica Lancets) Three times a day losartan 100 mg PO DAILY 30 days metformin ER 1,000 mg (2 x 500 mg) PO BID 30 days metoprolol tartrate 25 mg PO BID 30 days omeprazole 20 mg PO DAILY 90 days pen needle, diabetic (BD Rosina 2nd Gen Pen Needle) Twice a day polyethylene glycol 3350 (Miralax) 238 grams PO ONCE sitagliptin phosphate (Januvia) 50 mg PO DAILY 90 days Tobacco use date assessed: 09/12/23 Last assessed Fall Risk: 09/12/23 Dental Screening Dental Screen Date: 09/12/23 Did you have a dental visit in the last 12 months?: Yes Did you have a dental problem in the last 6 months where you did not have access to dental care?: No Was dental information given to patient?: Patient has dentist HPI HPI Comments History of Present Illness Details 68-year-old female, accompanied by , presents for diabetes, hypertension, and hyperlipidemia follow-up She admits to taking her medications as prescribed without adverse reactions She offers no complaints and denies acute symptoms at this time She did not get lipid panel blood work done [facility] Medical History B12 deficiency Overweight (BMI 25.0-29.9) long-term (current) use of insulin HTN (hypertension) Depression GERD (gastroesophageal reflux disease) Diabetes mellitus Vitamin D deficiency Surgical History Hx of cholecystectomy Hx of hysterectomy Family History Father Lung cancer Mother No problems noted. Family/Other Diabetes Mother Mental health disorder Social History Household Members: Spouse Housing: Apartment Alcohol intake: current Alcohol intake frequency: does not drink Patient Tobacco Use Status: Never used Tobacco e-Cigarette/Vaping Use: Never Used service: No Current occupational status: disabled Cognitive needs: No Hearing needs: No Vision needs: No Review of Systems Const Details: Const Denies chills, Denies fatigue, Denies fever(s), Denies headache(s) and Denies weakness ENT Denies dizziness and Denies headache(s) Card Denies chest pain, Denies lightheadedness, Denies dyspnea and Denies other (Palpitations) Resp Denies cough, Denies dyspnea, Denies wheezing and Denies other ( shortness of breath) GI Denies abdominal pain, Denies melena, Denies hematochezia, Denies change in bowel habits, Denies dyspepsia and Denies nausea Denies hematuria and Denies dysuria Musc Denies abnormal gait, Denies myalgias, Denies arthralgias, Denies numbness and Denies tingling Skin/Breast Denies rash, Denies unusual bruising and Denies wounds Neuro Denies abnormal gait, Denies dizziness, Denies headache(s), Denies memory loss, Denies numbness, Denies Sensory deficit (Neuro), Denies tingling and Denies weakness Psych Denies anxiety, Denies depression, Denies memory loss Endo Denies cold intolerance, Denies fatigue, Denies heat intolerance, Denies polydipsia and Denies polyuria Aller/Immun Denies wheezing Physical exam (Primary Care) Vital Signs: Last Vital Signs Temp 98 F 09/12/23 11:05 Pulse 57 09/12/23 11:05 Resp 13 09/12/23 11:05 BP 116/70 09/12/23 11:05 Pulse Ox 99 09/12/23 11:05 Oxygen Delivery Method Room Air 09/12/23 11:05 BMI result Body Mass Index 24.9 Tobacco/Smoking Status: Tobacco use Status Tobacco use date assessed 09/12/23 09/12/23 11:13 Patient Tobacco Use Status Never used Tobacco 09/12/23 11:05 e-Cigarette/Vaping Use Never Used 09/12/23 11:05 Const Other: General: no acute distress and well developed Nutritional Appearance: well nourished Orientation/consciousness: patient oriented x3 HENMT Head: Yes normocephalic and Yes atraumatic Eyes General: appearance normal, both eyes and all related structures Pupils: Equal, round and reactive pupils present EOM: EOMs intact bilaterally Resp Effort & Inspection: normal respiratory effort Auscultation: clear to auscultation bilaterally Cardio Rate: regular rate Rhythm: regular rhythm Heart sounds: S1 normal heart sound present, S2 normal heart sound present, no gallops, no murmurs and no rubs GI Palpation (GI): No Abdominal aortic bruit present, Soft to palpation, nontender, No hepatosplenomegaly present and No Rebound tenderness present Auscultation: normal bowel sounds General: Yes no CVA tenderness Back/Spine/Pelvis Back: no CVA tenderness Cervical Spine: cervical ROM normal and No Cervical spine tenderness Thoracic/Lumbar Spine: thoraco-lumbar ROM normal, No pain with thoraco-lumbar ROM, No thoracic spinal tenderness and No lumbar spinal tenderness Extrem General: Yes normal to inspection, No edema and No calf tenderness Skin General: warm and dry. Normal skin color. Normal skin turgor Neuro General: patient oriented x3, gait normal and no focal neuro deficit Cranial nerves: Yes Equal, round and reactive pupils present Cognition (Neuro): normal cognition Gait exam (Neuro): Normal gait present Sensory Exam: No Sensory deficit (Neuro) Psych Appearance: grossly normal Affect: normal affect Attitude: cooperative Thought process: Normal thought process present Results AMB Hemoglobin A1c AMB Hemoglobin A1c 7.6 % Last Edit by Mili Rodrigez MA on 09/12/23 11:24 Results Reviewed Results Reviewed: Laboratory Last Values Hgb A1c (Clinic) 7.6 % (4.0-6.0) H 09/12/23 11:21 Assessment and Plan Assessment & Plan (1) Diabetes mellitus: Code(s): E11.9 - Type 2 diabetes mellitus without complications Qualifiers: Diabetes mellitus complication status: with hyperglycemia Diabetes mellitus superintendent container terminal insulin use: with senior care use Diabetes mellitus type: type 2 Qualified Code(s): E11.65 - Type 2 diabetes mellitus with hyperglycemia; Z79.4 - long-term (current) use of insulin Plan: A1c today is 7.6%, above goal of less than 7.0%. Previous A1c was 7.0% Will increase Lantus to 30 units daily. Take as prescribed Continue to take metformin and Januvia as prescribed ADA diet and routine exercise encouraged Advised to get lipid panel and urine microalbumin/creatinine ratio labs done before her next visit Follow-up in 3 months or return sooner with symptoms or concerns Verbalized understanding and agreed with treatment plan (2) HTN (hypertension): Code(s): I10 - Essential (primary) hypertension Qualifiers: Hypertension type: essential hypertension Qualified Code(s): I10 - Essential (primary) hypertension Plan: Blood pressure is 160/70, within goal of less than 130/80 Continue current treatment regimen Low-sodium diet encouraged Follow-up in 3 months Verbalized understanding and agreed with treatment plan (3) Hyperlipidemia LDL goal <100: Code(s): E78.5 - Hyperlipidemia, unspecified Plan: Did not get lipid panel blood work done Recent LDL level in April 2023 is 104, above goal of less than 70 Advised to limit foods high in saturated fat and avoid foods high in trans fat Routine exercise encouraged Advised to get fasting blood work done before next visit Follow-up in 3 Verbalized understanding and agreed with treatment plan Orders: Orders AMB Hemoglobin A1c Today E11.9 - Type 2 diabetes mellitus without complications Microalbumin, Random (w Creat) Today E11.9 - Type 2 diabetes mellitus without complications Medications: Changed From insulin glargine (Lantus Solostar U-100 Insulin) 20 units subcut QAM To insulin glargine (Lantus Solostar U-100 Insulin) 30 units (0.3 mL) subcut QAM 3 mL 4RF Coding Level of Care Code Est Pt Level 4 (40513) Diagnoses Type 2 diabetes mellitus with hyperglycemia, with long-term current use of insulin E11.65; Z79.4 Diabetes mellitus complication status: with hyperglycemia Diabetes mellitus superintendent container terminal insulin use: with superintendent container terminal use Diabetes mellitus type: type 2 Essential hypertension I10 Hypertension type: essential hypertension Hyperlipidemia LDL goal <100 E78.5
[2023-09-12 11:05] VITALS: BP 116/70; PULSE 57; RESP 13; TEMP 36.6; O2SAT 99; BMI 24.9
== END 2023-09-12 11:45 | disposition home or self-care (01) ==
PROVIDERS: PCP Nurse Practitioner Family; Visit Provider Nurse Practitioner Family
DX: E11.65 Type 2 diabetes mellitus with hyperglycemia (principal); Z79.4 Long term (current) use of insulin; I10 Essential (primary) hypertension; E78.5 Hyperlipidemia, unspecified; E11.9 Type 2 diabetes mellitus without complications
CPT/HCPCS: 83036; 99214

== ENCOUNTER 2023-11-16 07:54 | Outpatient (REF) | payer OTHER, SELFPAY ==
[2023-11-16 12:25] LABS: Cholesterol 180 mg/dL (<200); HDL Cholesterol 67 mg/dL (>40); LDL Cholesterol Calculated 98 mg/dL (<100); Triglycerides 75 mg/dL (<150)
[2023-11-16 12:43] LABS: Creatinine Urine 51.32 mg/dL; Microalbum/Creatinine Ratio Ur 15.5 ug/mg cr (<30)
== END 2023-11-16 07:55 | disposition home or self-care (01) ==
LOC: HO.WFDLDS 07:54
PROVIDERS: Visit Provider Nurse Practitioner Family
DX: E78.5 Hyperlipidemia, unspecified (principal); E11.9 Type 2 diabetes mellitus without complications
CPT/HCPCS: 36415; 80061; 82043; 82570

== ENCOUNTER 2023-12-15 09:58 | Outpatient (AMB) | payer OTHER, SELFPAY ==
[2023-12-15 10:04] VITALS: BP 144/76; PULSE 59; RESP 14; TEMP 36.4; O2SAT 98; BMI 25.4
--- NOTE | 2023-12-15 10:04 | MHC.PC.OV ---
Vital Signs 12/15/23 10:04 12/15/23 10:30 Height 5 ft 8 in Weight 167 lb 4 oz BMI 25.4 BP 144/76 H 140/80 H Blood Pressure Location Lt brachial Lt brachial Position Sitting Sitting Respiration 14 Pulse 59 60 Pulse Source Pulse Oximeter Auscultation Temp 97.6 F Temp Source Temporal Artery Scan Pulse Oximetry (%) 98 Oxygen Delivery Method Room Air Intake Visit Reasons: 3 mos DM HTN Client Strategist Required: No Accompanied by: Spouse Allergies atorvastatin [Lipitor] Allergy (Unknown, Verified 12/15/23 10:21) unknown cephalexin [Keflex] Allergy (Unknown, Verified 12/15/23 10:21) unknown codeine Allergy (Unknown, Verified 12/15/23 10:21) unknown morphine Allergy (Unknown, Verified 12/15/23 10:21) unknown oxycodone [Percocet] Allergy (Unknown, Verified 12/15/23 10:21) unknown Penicillin Allergy (Unknown, Uncoded 12/15/23 10:21) unknown Medication List - Last Reconciled 12/15/23 by Cedric Friedman CNP albuterol sulfate 90 mcg/actuation (ProAir HFA) 2 puffs inhalation Q6H PRN amlodipine 5 mg PO DAILY 90 days ascorbate calcium (vitamin C) 500 mg PO DAILY aspirin (Adult Low Dose Aspirin) 81 mg PO DAILY 90 days bisacodyl (Dulcolax (bisacodyl)) 20 mg (4 x 5 mg) PO ONCE 1 day blood sugar diagnostic ([employer] Verio test strips) Three times a day FUTURE REFILLS FROM PCP. blood-glucose meter ([employer] Verio Flex Start kit) As directed 3 times a day cholecalciferol (vitamin D3) 25 mcg PO DAILY 30 days cyanocobalamin (vitamin B-12) 500 mcg sublingual DAILY 30 days fenofibrate 54 mg PO DAILY 90 days flash glucose sensor ([employer] [place] 14 Day Sensor kit) every 14 days fluticasone propionate 50 mcg/actuation 1 spray intranasal DAILY insulin glargine (Lantus Solostar U-100 Insulin) 30 units (0.3 mL) subcut QAM lancets ([employer]uch Delica Lancets) Three times a day losartan 100 mg PO DAILY 30 days metformin ER 1,000 mg (2 x 500 mg) PO BID 30 days metoprolol tartrate 25 mg PO BID 30 days omeprazole 20 mg PO DAILY 90 days pen needle, diabetic (BD Rosina 2nd Gen Pen Needle) Twice a day polyethylene glycol 3350 (Miralax) 238 grams PO ONCE sitagliptin phosphate (Januvia) 50 mg PO DAILY 90 days Tobacco use date assessed: 09/12/23 Fall risk assessment: No Falls in past year Last assessed Fall Risk: 12/15/23 Dental Screening Dental Screen Date: 09/12/23 HPI HPI Comments History of Present Illness Details 68-year-old female, accompanied by , presents for diabetes and hypertension follow-up She admits to taking her medications as prescribed without adverse reactions She states that she has been eating healthy and walking every day She offers no complaints and denies acute symptoms at this time Interpretation by the patient's per patient's preference [facility] Medical History B12 deficiency Overweight (BMI 25.0-29.9) detention (current) use of insulin HTN (hypertension) Depression GERD (gastroesophageal reflux disease) Diabetes mellitus Vitamin D deficiency Surgical History Hx of cholecystectomy Hx of hysterectomy Family History Father Lung cancer Mother No problems noted. Family/Other Diabetes Mother Mental health disorder Social History Household Members: Spouse Housing: Apartment Alcohol intake: current Alcohol intake frequency: does not drink Patient Tobacco Use Status: Never used Tobacco e-Cigarette/Vaping Use: Never Used service: No Current occupational status: disabled Cognitive needs: No Hearing needs: No Vision needs: No Review of Systems Const Details: Const Denies chills, Denies fatigue, Denies fever(s), Denies headache(s) and Denies weakness ENT Denies dizziness and Denies headache(s) Card Denies chest pain, Denies lightheadedness, Denies dyspnea and Denies other (Palpitations) Resp Denies cough, Denies dyspnea, Denies wheezing and Denies other ( shortness of breath) GI Denies abdominal pain, Denies melena, Denies hematochezia, Denies change in bowel habits, Denies dyspepsia and Denies nausea Denies hematuria and Denies dysuria Musc Denies abnormal gait, Denies myalgias, Denies arthralgias, Denies numbness and Denies tingling Skin/Breast Denies rash, Denies unusual bruising and Denies wounds Neuro Denies abnormal gait, Denies dizziness, Denies headache(s), Denies memory loss, Denies numbness, Denies Sensory deficit (Neuro), Denies tingling and Denies weakness Psych Denies anxiety, Denies depression, Denies memory loss Endo Denies cold intolerance, Denies fatigue, Denies heat intolerance, Denies polydipsia and Denies polyuria Aller/Immun Denies wheezing Physical exam (Primary Care) Vital Signs: Last Vital Signs Temp 97.6 F 12/15/23 10:04 Pulse 60 12/15/23 10:30 Resp 14 12/15/23 10:04 BP 140/80 H 12/15/23 10:30 Pulse Ox 98 12/15/23 10:04 Oxygen Delivery Method Room Air 12/15/23 10:04 BMI result Body Mass Index 25.4 Tobacco/Smoking Status: Tobacco use Status Tobacco use date assessed 09/12/23 12/15/23 10:09 Patient Tobacco Use Status Never used Tobacco 12/15/23 10:09 e-Cigarette/Vaping Use Never Used 12/15/23 10:09 Const Other: General: no acute distress and well developed Nutritional Appearance: well nourished Orientation/consciousness: patient oriented x3 HENMT Head: Yes normocephalic and Yes atraumatic Eyes General: appearance normal, both eyes and all related structures Pupils: Equal, round and reactive pupils present EOM: EOMs intact bilaterally Resp Effort & Inspection: normal respiratory effort Auscultation: clear to auscultation bilaterally Cardio Rate: regular rate Rhythm: regular rhythm Heart sounds: S1 normal heart sound present, S2 normal heart sound present, no gallops, no murmurs and no rubs GI Palpation (GI): No Abdominal aortic bruit present, Soft to palpation, nontender, No hepatosplenomegaly present and No Rebound tenderness present Auscultation: normal bowel sounds General: Yes no CVA tenderness Back/Spine/Pelvis Back: no CVA tenderness Cervical Spine: cervical ROM normal and No Cervical spine tenderness Thoracic/Lumbar Spine: thoraco-lumbar ROM normal, No pain with thoraco-lumbar ROM, No thoracic spinal tenderness and No lumbar spinal tenderness Extrem General: Yes normal to inspection, No edema and No calf tenderness Skin General: warm and dry. Normal skin color. Normal skin turgor Neuro General: patient oriented x3, gait normal and no focal neuro deficit Cranial nerves: Yes Equal, round and reactive pupils present Cognition (Neuro): normal cognition Gait exam (Neuro): Normal gait present Sensory Exam: No Sensory deficit (Neuro) Psych Appearance: grossly normal Affect: normal affect Attitude: cooperative Thought process: Normal thought process present Results AMB Hemoglobin A1c AMB Hemoglobin A1c 7.1 % Last Edit by NETTE Mcgee on 12/15/23 10:17 Results Reviewed Results Reviewed: Laboratory Last Values Hgb A1c (Clinic) 7.1 % (4.0-6.0) H 12/15/23 10:14 Assessment and Plan Assessment & Plan (1) Diabetes mellitus: Code(s): E11.9 - Type 2 diabetes mellitus without complications Qualifiers: Diabetes mellitus complication status: with hyperglycemia Diabetes mellitus [facility] insulin use: with joint terminal attack controller use Diabetes mellitus type: type 2 Qualified Code(s): E11.65 - Type 2 diabetes mellitus with hyperglycemia; Z79.4 - buttermaker continuous churn (current) use of insulin Plan: Recent A1c 7.1%, slightly above goal of less than 7.0%. Previous A1c is 7.6% Recent lipid panel level is 98, within goal of less than 100 Continue current treatment regimen ADA diet and routine exercise encouraged Advised to limit foods high in saturated fat and avoid foods high in trans fat Will recheck A1c in 3 months Verbalized understanding and agreed with treatment plan (2) HTN (hypertension): Code(s): I10 - Essential (primary) hypertension Qualifiers: Hypertension type: essential hypertension Qualified Code(s): I10 - Essential (primary) hypertension Plan: Resting blood pressure is 140/80, above goal of less than 130/80. Heart rate is 60 Will increase amlodipine to 10 mg daily. Advised to take as prescribed Continue to take metoprolol losartan as prescribed Low-sodium diet encouraged Follow-up in 1 month or sooner with signs and symptoms such as dizziness/lightheadedness or swelling to her feet Was understanding and agreed with the plan Orders: Orders AMB Hemoglobin A1c Today E11.65 - Type 2 diabetes mellitus with hyperglycemia, Z79.4 - buttermaker continuous churn (current) use of insulin Medications: New amlodipine 10 mg PO DAILY 90 tabs 1RF 90 days Discontinued amlodipine Discontinued Reason: Doctor's Order 5 mg PO DAILY 90 days 90 tabs 1RF Coding Level of Care Code Est Pt Level 4 (67624) Complex EM visit Add On G2211 Diagnoses Type 2 diabetes mellitus with hyperglycemia, with long-term current use of insulin E11.65; Z79.4 Diabetes mellitus complication status: with hyperglycemia Diabetes mellitus [facility] insulin use: with [facility] use Diabetes mellitus type: type 2 Essential hypertension I10 Hypertension type: essential hypertension
[2023-12-15 10:30] VITALS: BP 140/80; PULSE 60
== END 2023-12-15 10:48 | disposition home or self-care (01) ==
PROVIDERS: PCP Nurse Practitioner Family; Visit Provider Nurse Practitioner Family
DX: E11.65 Type 2 diabetes mellitus with hyperglycemia (principal); Z79.4 Long term (current) use of insulin; I10 Essential (primary) hypertension
CPT/HCPCS: 83036; 99214; G2211

== ENCOUNTER 2024-01-05 14:58 | Outpatient (AMB) | payer OTHER, SELFPAY ==
--- NOTE | 2024-01-05 14:34 | A.OFFPC_ITS ---
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 Poultry Processing Supervisor Language: Trinidadian Is last menstrual period known: No Post menopausal: No Patient : No Allergies atorvastatin [Lipitor] Allergy (Unknown, Verified 01/05/24 15:14) unknown cephalexin [Keflex] Allergy (Unknown, Verified 01/05/24 15:14) unknown codeine Allergy (Unknown, Verified 01/05/24 15:14) unknown morphine Allergy (Unknown, Verified 01/05/24 15:14) unknown oxycodone [Percocet] Allergy (Unknown, Verified 01/05/24 15:14) unknown Penicillin Allergy (Unknown, Uncoded 01/05/24 15:14) unknown Medication List - Last Reconciled 01/05/24 by Cedric Friedman CNP albuterol sulfate 90 mcg/actuation (ProAir HFA) 2 puffs inhalation Q6H PRN amlodipine 10 mg PO DAILY 90 days ascorbate calcium (vitamin C) 500 mg PO DAILY aspirin (Adult Low Dose Aspirin) 81 mg PO DAILY 90 days blood sugar diagnostic ([employer] Verio test strips) Three times a day FUTURE REFILLS FROM PCP. blood-glucose meter ([employer] Verio Flex Start kit) As directed 3 times a day cholecalciferol (vitamin D3) 25 mcg PO DAILY 30 days cyanocobalamin (vitamin B-12) 500 mcg sublingual DAILY 30 days flash glucose sensor (FreeStyle River 14 Day Sensor kit) every 14 days fluticasone propionate 50 mcg/actuation 1 spray intranasal DAILY insulin glargine (Lantus Solostar U-100 Insulin) 30 units (0.3 mL) subcut QAM lancets ([employer] Delica Lancets) Three times a day losartan 100 mg PO DAILY 30 days metformin ER 1,000 mg (2 x 500 mg) PO BID 30 days metoprolol tartrate 25 mg PO BID 30 days omeprazole 20 mg PO DAILY 90 days pen needle, diabetic (BD Rosina 2nd Gen Pen Needle) Twice a day sitagliptin phosphate (Januvia) 50 mg PO DAILY 90 days Tobacco use date assessed: 01/05/24 Fall risk assessment: No Falls in past year Dental Screening Dental Screen Date: 01/05/24 Did you have a dental visit in the last 12 months?: Yes Did you have a dental problem in the last 6 months where you did not have access to dental care?: No Was dental information given to patient?: Patient has dentist HPI HPI Comments History of Present Illness Details 68-year-old female, accompanied by eva catherine, presents for a hospital discharge follow-up On 01/02/2024, she was evaluated at [facility] ED for palpitations and lower extremity swelling. Health record reviewed. EKG revealed AFib. Chest x-ray revealed no acute cardiopulmonary disease. TSH was slightly elevate, 4.25, but later normalized. Other lab results were benign. She was discharged home on Eliquis 5 mg twice daily He notes he went to [facility] ED again last night, via ambulance, due to palpitation. She notes that her BP was 200/98 for EMS. She notes that labs, cxr, and ekg were done before she was discharged home w/o medication this morning. Partial health record available and reviewed. Labs were unremarkable. Discharge notes, EKG and chest x-ray not available He notes that he has been feeling better today with no palpitations. She states that she took Eliquis as prescribed for 4 days but stopped taking the medication due to nausea, feeling of warmth and headache. 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 Family/Other Diabetes Mother Mental health disorder Social History Household Members: Spouse Housing: Apartment Alcohol intake: current Alcohol intake frequency: does not drink Patient Tobacco Use Status: Never used Tobacco e-Cigarette/Vaping Use: Never Used service: No Current occupational status: disabled Cognitive needs: No Hearing needs: No Vision needs: No Questionnaire AUDIT C Alcohol Use Questionnaire (AUDIT-C) 1. How often do you have a drink containing alcohol?: Never Total Score: 0 ACT Questionnaire In the past 4 weeks, how much of the time did your asthma keep you from getting as much done at work, school or at home?: All of the time During the past 4 weeks, how often have you had shortness of breath?: Not at all During the past 4 weeks, how often did your asthma symptoms wake you up at night or earlier than usual in the morning?: Not at all During the past 4 weeks, how often have you had to use your rescue inhaler or nebulizer medication?: Not at all How would you rate your asthma control during the past 4 weeks?: Completely controlled Score: 21 Review of Systems Const Details: Const Denies chills, Denies fatigue, Denies fever(s), Denies headache(s) and Denies weakness ENT Denies dizziness and Denies headache(s) Card Denies chest pain, Denies lightheadedness, Denies dyspnea and Denies other (Palpitations) Resp Denies cough, Denies dyspnea, Denies wheezing and Denies other ( shortness of breath) GI Denies abdominal pain, Denies melena, Denies hematochezia, Denies change in bowel habits, Denies dyspepsia and Denies nausea Denies hematuria and Denies dysuria Musc Denies abnormal gait, Denies myalgias, Denies arthralgias, Denies numbness and Denies tingling Skin/Breast Denies rash, Denies unusual bruising and Denies wounds Neuro Denies abnormal gait, Denies dizziness, Denies headache(s), Denies memory loss, Denies numbness, Denies Sensory deficit (Neuro), Denies tingling and Denies weakness Psych Denies anxiety, Denies depression, Denies memory loss Endo Denies cold intolerance, Denies fatigue, Denies heat intolerance, Denies polydipsia and Denies polyuria Aller/Immun Denies wheezing Physical exam (Primary Care) Tobacco/Smoking Status: Tobacco use Status Tobacco use date assessed 09/12/23 01/05/24 14:36 Patient Tobacco Use Status Never used Tobacco 01/05/24 14:36 e-Cigarette/Vaping Use Never Used 01/05/24 14:36 Const Other: General: no acute distress and well developed Nutritional Appearance: well nourished Orientation/consciousness: patient oriented x3 HENMT Head: Yes normocephalic and Yes atraumatic Eyes General: appearance normal, both eyes and all related structures Pupils: Equal, round and reactive pupils present EOM: EOMs intact bilaterally Resp Effort & Inspection: normal respiratory effort Auscultation: clear to auscultation bilaterally Cardio Rate: regular rate Rhythm: regular rhythm Heart sounds: S1 normal heart sound present, S2 normal heart sound present, no gallops, no murmurs and no rubs GI Palpation (GI): No Abdominal aortic bruit present, Soft to palpation, nontender, No hepatosplenomegaly present and No Rebound tenderness present Auscultation: normal bowel sounds General: Yes no CVA tenderness Back/Spine/Pelvis Back: no CVA tenderness Cervical Spine: cervical ROM normal and No Cervical spine tenderness Thoracic/Lumbar Spine: thoraco-lumbar ROM normal, No pain with thoraco-lumbar ROM, No thoracic spinal tenderness and No lumbar spinal tenderness Extrem General: Yes normal to inspection, No edema and No calf tenderness Skin General: warm and dry. Normal skin color. Normal skin turgor Neuro General: patient oriented x3, gait normal and no focal neuro deficit Cranial nerves: Yes Equal, round and reactive pupils present Cognition (Neuro): normal cognition Gait exam (Neuro): Normal gait present Sensory Exam: No Sensory deficit (Neuro) Psych Appearance: grossly normal Affect: normal affect Attitude: cooperative Thought process: Normal thought process present Office Procedures EKG Details: EKG done in the office, revealed sinus bradycardia with right bundle branch block, heart rate is 55 [id number], Complete Assessment and Plan Assessment & Plan (1) Afib: Code(s): I48.91 - Unspecified atrial fibrillation Plan: She was evaluated and treated in the ED on 01/02/2024 and 01/04/2024 for palpitations. No acute symptoms at this time She took Eliquis as prescribed for 4 days and stopped the medication due to nausea, feeling of warmth and headache. Those symptoms completely resolved after she stopped the medication EKG done in the office, revealed sinus bradycardia with right bundle branch block, heart rate is 55 She wants to trial a low-dose of Eliquis versus warfarin which requires monitoring Will start Eliquis 2.5 mg twice daily. Advised to take as prescribed. Instructed on risks, benefits, and potential adverse reactions of the medication Advised to immediately stop the medication if experiencing adverse reactions then immediately notify his PCP or go to the ED Encouraged to immediately go to the ED with palpitations Urgent echocardiogram ordered and Urgent cardiology referral made Verbalized understanding and agreed with the treatment plan (2) HTN (hypertension): Code(s): I10 - Essential (primary) hypertension Qualifiers: Hypertension type: essential hypertension Qualified Code(s): I10 - Essential (primary) hypertension Plan: Blood pressure is 118/72, within goal of less than 130/80 Continue current treatment regimen Low-sodium diet encouraged Follow-up in 1 month or sooner with symptoms or concerns Verbalized understanding and agreed with the treatment plan Orders: Orders CA echo transthoracic complete Today I48.91 - Unspecified atrial fibrillation AMB EKG-In Office Today I48.91 - Unspecified atrial fibrillation Referrals Cardiology Referral I10 - Essential (primary) hypertension, I48.91 - Unspecified atrial fibrillation Medications: New apixaban (Eliquis) 2.5 mg PO BID 30 days 60 tabs 0RF Refilled metoprolol tartrate 25 mg PO BID 30 days 60 tabs 3RF E11.9 - Type 2 diabetes mellitus without complications, 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
[2024-01-05 15:13] VITALS: BP 118/72; PULSE 61; TEMP 36.6; O2SAT 98; BMI 25.2
== END 2024-01-05 16:10 | disposition home or self-care (01) ==
PROVIDERS: PCP Nurse Practitioner Family; Visit Provider Nurse Practitioner Family
DX: I48.91 Unspecified atrial fibrillation (principal); I10 Essential (primary) hypertension
CPT/HCPCS: 93000; 99214; G2211

== ENCOUNTER → 2024-01-22 08:04 | Outpatient (BNVA) | payer OTHER, SELFPAY | PROVIDERS: PCP Nurse Practitioner Family; Visit Provider Internal Medicine | DX: I48.91 Unspecified atrial fibrillation (principal); I10 Essential (primary) hypertension; Z79.01 Long term (current) use of anticoagulants; Z79.899 Other long term (current) drug therapy | CPT/HCPCS: 93005; 99212 ==

== ENCOUNTER 2024-01-22 13:37 | Outpatient (AMB) | payer OTHER, SELFPAY ==
--- NOTE | 2024-01-22 13:42 | MHC.OFFVIS ---
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 Outside Installer Apprentice Name: Donnell/mark/tamazight Accompanied by: Significant Other Allergies atorvastatin [Lipitor] Allergy (Unknown, Verified 01/05/24 15:14) unknown cephalexin [Keflex] Allergy (Unknown, Verified 01/05/24 15:14) unknown codeine Allergy (Unknown, Verified 01/05/24 15:14) unknown morphine Allergy (Unknown, Verified 01/05/24 15:14) unknown oxycodone [Percocet] Allergy (Unknown, Verified 01/05/24 15:14) unknown Penicillin Allergy (Unknown, Uncoded 01/05/24 15:14) unknown Medication List - Last Reconciled 01/22/24 by Tommy Stacy MD albuterol sulfate 90 mcg/actuation (ProAir HFA) 2 puffs inhalation Q6H PRN amlodipine 10 mg PO DAILY 90 days apixaban (Eliquis) 2.5 mg PO BID 30 days ascorbate calcium (vitamin C) 500 mg PO DAILY blood sugar diagnostic ([employer] Verio test strips) Three times a day FUTURE REFILLS FROM PCP. blood-glucose meter ([employer] Verio Flex Start kit) As directed 3 times a day cholecalciferol (vitamin D3) 25 mcg PO DAILY 30 days cyanocobalamin (vitamin B-12) 500 mcg sublingual DAILY 30 days flash glucose sensor (FreeStyle River 14 Day Sensor kit) every 14 days fluticasone propionate 50 mcg/actuation 1 spray intranasal DAILY insulin glargine (Lantus Solostar U-100 Insulin) 30 units (0.3 mL) subcut QAM lancets ([employer] Delica Lancets) Three times a day losartan 100 mg PO DAILY 30 days metformin ER 1,000 mg (2 x 500 mg) PO BID 30 days metoprolol tartrate 25 mg PO BID 30 days omeprazole 20 mg PO DAILY 90 days pen needle, diabetic (BD Rosina 2nd Gen Pen Needle) Twice a day sitagliptin phosphate (Januvia) 50 mg PO DAILY 90 days HPI Comments Details: 69-year-old female here for follow-up. She has elevated blood pressures. She was advised by her primary care physician to increase amlodipine from 5-10 mg once a day. She has brought her home blood pressure log which is mostly showing normal blood pressures with some days in high 140s to 150s. She is denying any symptoms. In particular no chest pain or shortness of breath. No dizziness. She had some palpitations but they are resolved at this point. 01/22/2024: She is here for follow-up. Apparently went to [facility] for recently where she was diagnosed with atrial fibrillation and was started on Eliquis. She is saying that she has been feeling very fatigued since she started Eliquis and the dose was decreased to 2.5 mg twice a day which improved her fatigue somewhat. I have tried to explain to her that fatigue is not a common issue with Eliquis unless someone is getting anemic which does not appear to be the case. After some discussion she agreed to just change Eliquis to rivaroxaban. Denying any other issues currently. Blood pressure is well controlled. EKGs showing sinus bradycardia. 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 Family/Other Diabetes Mother Mental health disorder Social History Household Members: Spouse Housing: Apartment Alcohol intake: current Alcohol intake frequency: does not drink Patient Tobacco Use Status: Never used Tobacco e-Cigarette/Vaping Use: Never Used service: No Current occupational status: disabled Cognitive needs: No Hearing needs: No Vision needs: No Physical Exam Vital Signs: Last Vital Signs Pulse 57 01/22/24 13:52 BP 122/70 01/22/24 13:52 BMI result Body Mass Index 25.1 GENERAL APPEARANCE: in no acute distress, pleasant. NECK: no carotid bruit, no jugular venous distention. SKIN: no suspicious lesions, warm and dry. HEART: no murmurs, regular rate and rhythm. Sinus bradycardia. LUNGS: clear to auscultation bilaterally. ABDOMEN: soft, nontender. EXTREMITIES: no edema. PERIPHERAL PULSES: equal. NEUROLOGIC: No gross deficits, AAO X 3 Office Procedures EKG Details: Sinus bradycardia 57 beats per minute, normal axis, right bundle-branch block, QTC 445 milliseconds. [id number], Complete Assessment & Plan Assessment & Plan (1) Afib: Code(s): I48.91 - Unspecified atrial fibrillation Category: Medical (2) HTN (hypertension): Code(s): I10 - Essential (primary) hypertension Category: Medical Qualifiers: Hypertension type: essential hypertension Qualified Code(s): I10 - Essential (primary) hypertension Plan 69-year-old female presenting for follow-up. She recently had admission at [facility] where she was diagnosed with atrial fibrillation and was started on anticoagulation with Eliquis. Apparently she complained of some fatigue and tiredness after that and was adamant that this is due to Eliquis and dose was decreased to 2.5 mg twice a day. I have explained to her that Eliquis is given to her for stroke prevention and has to be given at the appropriate dose otherwise it will not prevent stroke. After some discussion she has agreed to stop Eliquis and take Xarelto which I am sending to her pharmacy. I have also explained to her that this is not a common side effect of the drug. If she does not improve then we may have to transition her from metoprolol tartrate to atenolol 25 mg once a day because then this could be related to beta-williams use. Atenolol is more lipophilic and better tolerated. She will see us back in few months. Thank you for allowing me to participate in the care of your patient. Please feel free to contact me if you have any questions. Medications: New rivaroxaban must administer with evening meal 20 mg PO DAILY 60 tabs 3RF Discontinued apixaban (Eliquis) Discontinued Reason: Doctor's Order 2.5 mg PO BID 30 days 60 tabs 0RF Coding Level of Care Code Est Pt Level 4 (24826) Diagnoses Afib I48.91 Essential hypertension I10 Hypertension type: essential hypertension CPT Codes EKG - CPT: 20562-[id number], Complete ([id number])
[2024-01-22 13:52] VITALS: BP 122/70; PULSE 57; BMI 25.1
== END 2024-01-22 14:20 | disposition home or self-care (01) ==
PROVIDERS: PCP Nurse Practitioner Family; Visit Provider Internal Medicine Cardiovascular Disease
DX: I48.91 Unspecified atrial fibrillation (principal); I10 Essential (primary) hypertension
CPT/HCPCS: 93010; 99214

== ENCOUNTER 2024-02-06 16:02 | Outpatient (AMB) | payer OTHER, SELFPAY ==
--- NOTE | 2024-02-06 16:06 | MHC.PC.OV ---
Vital Signs 02/06/24 16:12 Height 5 ft 8 in Weight 167 lb 6 oz BMI 25.4 BP 134/70 Blood Pressure Location Rt brachial Position Sitting Respiration 16 Pulse 73 Pulse Source Pulse Oximeter Temp 98.0 F Temp Source Oral Pulse Oximetry (%) 96 Oxygen Delivery Method Room Air Intake Visit Reasons: follow up htn Intake Note: patient here to follow up on HTN. Patient Flow Coordinator Required: No Is last menstrual period known: No Post menopausal: No Patient : No Allergies atorvastatin [Lipitor] Allergy (Unknown, Verified 02/06/24 16:19) unknown cephalexin [Keflex] Allergy (Unknown, Verified 02/06/24 16:19) unknown codeine Allergy (Unknown, Verified 02/06/24 16:19) unknown morphine Allergy (Unknown, Verified 02/06/24 16:19) unknown oxycodone [Percocet] Allergy (Unknown, Verified 02/06/24 16:19) unknown Penicillin Allergy (Unknown, Uncoded 02/06/24 16:19) unknown Medication List - Last Reconciled 02/06/24 by Cedric Friedman CNP albuterol sulfate 90 mcg/actuation (ProAir HFA) 2 puffs inhalation Q6H PRN amlodipine 10 mg PO DAILY 90 days ascorbate calcium (vitamin C) 500 mg PO DAILY blood sugar diagnostic (Passworks Verio test strips) Three times a day FUTURE REFILLS FROM PCP. blood-glucose meter (Snapguideuch Verio Flex Start kit) As directed 3 times a day cholecalciferol (vitamin D3) 25 mcg PO DAILY 30 days cyanocobalamin (vitamin B-12) 500 mcg sublingual DAILY 30 days flash glucose sensor (FreeStyle [place] 14 Day Sensor kit) every 14 days fluticasone propionate 50 mcg/actuation 1 spray intranasal DAILY insulin glargine (Lantus Solostar U-100 Insulin) 30 units (0.3 mL) subcut QAM lancets (Snapguideuch Delica Lancets) Three times a day losartan 100 mg PO DAILY 30 days metformin ER 1,000 mg (2 x 500 mg) PO BID 30 days metoprolol tartrate 25 mg PO BID 30 days omeprazole 20 mg PO DAILY 90 days 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, 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 (BD Rosina 2nd Gen Pen Needle) Twice a day rivaroxaban 20 mg PO DAILY sitagliptin phosphate (Januvia) 50 mg PO DAILY 90 days Tobacco use date assessed: 02/06/24 Fall risk assessment: No Falls in past year Last assessed Fall Risk: 02/06/24 Dental Screening Dental Screen Date: 01/05/24 HPI HPI Comments History of Present Illness Details 69-year-old Czech-speaking female, accompanied by her , presents for hypertension follow-up She admits to taking her medications as prescribed without adverse reactions She offers no complaints and denies acute symptoms at this time She is followed by [facility] cardiology for recent episodes of AFib. Her AFib has resolved for cardiology. 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 Family/Other Diabetes Mother Mental health disorder Social History Household Members: Spouse Housing: Apartment Alcohol intake: current Alcohol intake frequency: does not drink Patient Tobacco Use Status: Never used Tobacco e-Cigarette/Vaping Use: Never Used service: No Current occupational status: disabled Cognitive needs: No Hearing needs: No Vision needs: No Review of Systems Const Details: Const Denies chills, Denies fatigue, Denies fever(s), Denies headache(s) and Denies weakness ENT Denies dizziness and Denies headache(s) Card Denies chest pain, Denies lightheadedness, Denies dyspnea and Denies other (Palpitations) Resp Denies cough, Denies dyspnea, Denies wheezing and Denies other ( shortness of breath) GI Denies abdominal pain, Denies melena, Denies hematochezia, Denies change in bowel habits, Denies dyspepsia and Denies nausea Denies hematuria and Denies dysuria Musc Denies abnormal gait, Denies myalgias, Denies arthralgias, Denies numbness and Denies tingling Skin/Breast Denies rash, Denies unusual bruising and Denies wounds Neuro Denies abnormal gait, Denies dizziness, Denies headache(s), Denies memory loss, Denies numbness, Denies Sensory deficit (Neuro), Denies tingling and Denies weakness Psych Denies anxiety, Denies depression, Denies memory loss Endo Denies cold intolerance, Denies fatigue, Denies heat intolerance, Denies polydipsia and Denies polyuria Aller/Immun Denies wheezing Physical exam (Primary Care) Tobacco/Smoking Status: Tobacco use Status Tobacco use date assessed 01/05/24 02/06/24 16:08 Patient Tobacco Use Status Never used Tobacco 02/06/24 16:08 e-Cigarette/Vaping Use Never Used 02/06/24 16:08 Const Other: General: no acute distress and well developed Nutritional Appearance: well nourished Orientation/consciousness: patient oriented x3 HENMT Head: Yes normocephalic and Yes atraumatic Eyes General: appearance normal, both eyes and all related structures Pupils: Equal, round and reactive pupils present EOM: EOMs intact bilaterally Resp Effort & Inspection: normal respiratory effort Auscultation: clear to auscultation bilaterally Cardio Rate: regular rate Rhythm: regular rhythm Heart sounds: S1 normal heart sound present, S2 normal heart sound present, no gallops, no murmurs and no rubs GI Palpation (GI): No Abdominal aortic bruit present, Soft to palpation, nontender, No hepatosplenomegaly present and No Rebound tenderness present Auscultation: normal bowel sounds General: Yes no CVA tenderness Back/Spine/Pelvis Back: no CVA tenderness Cervical Spine: cervical ROM normal and No Cervical spine tenderness Thoracic/Lumbar Spine: thoraco-lumbar ROM normal, No pain with thoraco-lumbar ROM, No thoracic spinal tenderness and No lumbar spinal tenderness Extrem General: Yes normal to inspection, No edema and No calf tenderness Skin General: warm and dry. Normal skin color. Normal skin turgor Neuro General: patient oriented x3, gait normal and no focal neuro deficit Cranial nerves: Yes Equal, round and reactive pupils present Cognition (Neuro): normal cognition Gait exam (Neuro): Normal gait present Sensory Exam: No Sensory deficit (Neuro) Psych Appearance: grossly normal Affect: normal affect Attitude: cooperative Thought process: Normal thought process present Assessment and Plan Assessment & Plan (1) HTN (hypertension): Code(s): I10 - Essential (primary) hypertension Qualifiers: Hypertension type: essential hypertension Qualified Code(s): I10 - Essential (primary) hypertension Plan: Blood pressure is 134/70, slightly above goal of less than 130/80 Continue current treatment regimen Low-sodium diet encouraged Follow-up in 8 weeks for an extended physical exam, hypertension, and diabetes, or sooner with symptoms or concerns Verbalized understanding and agreed with treatment plan (2) Laboratory tests ordered as part of a complete physical exam (CPE): Code(s): Z00.00 - Encounter for general adult medical examination without abnormal findings Plan: Fasting labs ordered in preparation of a complete physical exam. Advised to fast for at least 10 hours before getting labs drawn. May drink water Verbalized understanding and agreed with treatment plan. Orders: Orders Complete Blood Count Auto Diff Today Z00.00 - Encounter for general adult medical examination without abnormal findings Comprehensive [place]. Panel Fast Today Z00.00 - Encounter for general adult medical examination without abnormal findings TSH reflex Free T4 Today Z00.00 - Encounter for general adult medical examination without abnormal findings UA CC w/rflx Micro + Cult Today Z00.00 - Encounter for general adult medical examination without abnormal findings Vitamin D 25-OH Total Today E55.9 - Vitamin D deficiency, unspecified Lipid Panel Today E11.65 - Type 2 diabetes mellitus with hyperglycemia, Z00.00 - Encounter for general adult medical examination without abnormal findings, Z79.4 - [facility] (current) use of insulin Medications: Refilled sitagliptin phosphate (Januvia) 50 mg PO DAILY 90 days 90 tabs 1RF blood sugar diagnostic (OneTouch Verio test strips) Three times a day FUTURE REFILLS FROM PCP. 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
[2024-02-06 16:12] VITALS: BP 134/70; PULSE 73; RESP 16; TEMP 36.7; O2SAT 96; BMI 25.4
== END 2024-02-06 16:31 | disposition home or self-care (01) ==
PROVIDERS: PCP Nurse Practitioner Family; Visit Provider Nurse Practitioner Family
DX: I10 Essential (primary) hypertension (principal); Z00.00 Encounter for general adult medical examination without abnormal findings
CPT/HCPCS: 99213

== ENCOUNTER → 2024-03-04 15:53 | Outpatient (REF) | payer OTHER, SELFPAY ==
--- NOTE | 2024-03-04 15:56 | CA_ITS ---
Transthoracic Echocardiogram Patient (Last, First, Middle): Mary Miller, Gender: Female Date of : 1955 Age: 69 Procedure Date: 03/04/2024 Procedure Type: Transthoracic Echocardiogram Location: OP Height: 172.72 cm Weight: 75.3 kg BSA: 1.89 m2 Heart Rate: 59 bpm BP: 116 / 60 mmHg Special Collections Librarian: FRANCISCO Referring MD: Cedric Friedman CNP Model Builder: Inocencio Gilbert MD Symptoms: I48.91 - Unspecified atrial fibrillation Study Quality: Good ECG Rhythm: Sinus Conclusions: - 1. Normal LV ejection fraction 55-60% with grade 1 diastolic dysfunction 2. Normal cardiac valvular Dopplers 3. Normal RV systolic pressure 4. Upper limits of normal ascending aortic size at 3.5 cm 5. No gross pericardial effusion Findings Left Ventricle Normal left ventricular size, thickness, and systolic function. The visually estimated ejection fraction is between 55-60%. Spectral Doppler is indicative of an impaired relaxation filling pattern. E/E prime ratio is <8, consistent with normal filling pressures. Evidence suggests grade I (mild) diastolic dysfunction. Right Ventricle Normal right ventricular cavity size and systolic function. Atria The left atrium is likely dilated. Interatrial shunt cannot be excluded. The right atrium is normal in size. Aortic Valve Normal aortic valve structure and function. There is no aortic valve stenosis. There is no aortic valve regurgitation. Mitral Valve Normal mitral valve structure and function. There is trace mitral valve regurgitation. There is no mitral valve stenosis. Pulmonic Valve The pulmonic valve is likely normal. There is trace pulmonic valve regurgitation. Tricuspid Valve Normal tricuspid valve structure. There is trace tricuspid valve regurgitation. The right ventricular systolic pressure is normal. The right ventricular systolic pressure is 13 mmHg. Normal right atrial pressure. There is no evidence of pulmonary hypertension. Great Vessels All visible segments of the aorta are normal in size. The pulmonary artery was not well visualized. Venous The inferior vena cava is normal in size. Inferior vena cava flow is normal. Pericardium/Pleural There is no evidence of pericardial effusion. Measurements 2D Linear Measurements IVSd: 1.05 0.6-0.9/0.6-1.0 cm LVIDd: 4.43 3.9-5.3/4.2-5.9 cm LVIDd Index: 2.34 2.4-3.2/2.2-3.1 cm/m2 LVIDs: 2.80 2.0-3.6 cm LVPWd: 1.05 0.7-1.1 cm Ao Root: 3.70 2.1-3.5 cm LA Diam: 4.80 2.7-3.8/3.0-4.0 cm LAIDs Index: 2.54 1.5-2.3 cm/m2 LV Mass: 199.17 67-162/88-224 g LV Mass Index: 105.38 43-95/49-115 g/m2 LVOT Diam: 2.20 3.0+(-)1.3 cm Mitral Valve MV Pk E: 0.66 MV PK A: 0.77 MV Decel Time: 252.00 E/A: 0.90 E'Lateral: 12.10 E'Medial: 5.77 E/E' Med: 11.40 E/E' Lat: 5.50 PHT: 74.00 MVA PHT: 2.97 Decel [place]: 2.62 Aortic Valve AoV Pk Dao: 1.51 AoV Mn Dao: 0.96 AoV VTI: 0.37 AoV Pk Grad: 9.00 Aov Mn Grad: 4.00 MELINDA Cont.VTI: 2.72 LVOT LVOT Pk Dao: 0.99 LVOT Mn Dao: 0.62 LVOT VTI: 0.27 LVOT Pk Grad: 4.00 LVOT Mn Grad: 2.00 LVOT Diam: 2.20 LVOT Area: 3.80 Diastolic Function MV Pk E: 0.66 MV Pk A: 0.77 E/A: 0.90 E'Medial: 5.77 E/E' Med: 11.40 E' Laterial: 12.10 E/E' Lat: 5.50 Right Ventricle TAPSE (mm): 24.00 TVS' Dao: 11.00 Tricuspid Valve TR Pk Dao: 1.60 TR Pk Grad: 10.00 RA Press: 3.00 RVSP: 13.00 Great Vessels Aorta Ao Root-2D: 3.70 2.0-3.7 cm Ao Asc: 3.50 2.1-3.4 cm Pulmonary Valve PV Pk Dao: 1.16 Peak PV Grad: 5.00 Updated in Other Vendor System with Status of Final Inocencio Gilbert MD electronically signed on 03/04/2024 5:06:09 PM with status of Final
== END ==
LOC: HO.CARD 15:53
PROVIDERS: PCP Nurse Practitioner Family; Visit Provider Nurse Practitioner Family
DX: I48.91 Unspecified atrial fibrillation (principal)
CPT/HCPCS: 93306

== ENCOUNTER → 2024-03-04 15:56 | Outpatient (BNV) | payer OTHER, SELFPAY | PROVIDERS: PCP Nurse Practitioner Family; Visit Provider Internal Medicine Cardiovascular Disease | DX: I51.89 Other ill-defined heart diseases (principal) | CPT/HCPCS: 93306 ==

== ENCOUNTER 2024-04-05 08:25 | Outpatient (REF) | payer OTHER, SELFPAY ==
[2024-04-05 11:45] LABS: Appearance Urine Turbid; Color Urine Dark Yellow; Glucose Urine UA Negative (Negative); Leukocyte Esterase Urine Small (1+) (Negative); Nitrite Urine Negative (Negative); PH 5.5 (5.0-9.0); UMIC TRIGGER UACC YES; Urine Blood Negative (Negative); Urine Ketones Trace mg/dL (Negative); Urine Protein Negative (Neg-Trace)
[2024-04-05 11:54] LABS: Bacteria Urine None Seen (None Seen); Hyaline Casts Urine 0-2 /LPF (0-2); RBC Urine 0-2 /HPF (0-2); UACC Culture Trigger YES; WBC Urine 0-5 /HPF (0-5)
[2024-04-05 12:03] LABS: MANUAL DIFF FLAG NO
[2024-04-05 12:11] LABS: Basophils Absolute Auto 0.1 X10*3/uL (0.0-0.2); Basophils Percent Auto 0.7 % (0-2); Eosinophils Absolute Auto 0.1 X10*3/uL (0.0-0.4); Eosinophils Percent Auto 0.6 % (0-4); Hemoglobin 12.8 g/dl (12.0-16.0); Imm Gran Abs Auto 0.03 X10*3/uL (0.00-0.03); Imm Gran Pct Auto 0.4 % (0.0-0.4); Lymphocytes Absolute Auto 2.3 X10*3/uL (1.2-4.9); Lymphocytes Percent Auto 27.1 % (20-40); Mean Corpuscular HGB Conc 31.2 g/dl (31.0-35.0); Mean Corpuscular Volume 83.3 fL (80.0-98.0); Mean Platelet Volume 11.1 fL (9.4-12.3); Monocytes Absolute Auto 0.5 X10*3/uL (0.1-1.2); Monocytes Percent Auto 6.3 % (2-11); Neutrophils Absolute Auto 5.5 x10*3/uL (2.0-8.3); Neutrophils Percent Auto 64.9 % (45-73); Platelet Count 325 X10*3/uL (160-400); Red Blood Count 4.92 X10*6/uL (4.20-5.50); Red Cell Distribution Width 14.4 % (11.0-16.0); White Blood Count 8.5 X10*3/uL (4.8-10.8)
[2024-04-05 12:51] LABS: Alanine Aminotransferase 19 U/L (0-31); Albumin Level 4.2 g/dL (3.5-5.0); Alkaline Phosphatase 52 U/L (39-117); Anion Gap 11 (12-20); Aspartate Amino Transferase 18 U/L (5-31); Bilirubin Total 0.6 mg/dL (0.0-1.0); Blood Urea Nitrogen 10 mg/dL (9-16); Calcium 9.7 mg/dL (8.4-10.2); Carbon Dioxide 30 mmol/L (22-29); Chloride 103 mmol/L (96-108); Cholesterol 173 mg/dL (<200); Estimated Glomerular Filt Rate > 60; Glucose Fasting 143 mg/dL (60-99); HDL Cholesterol 64 mg/dL (>40); LDL Cholesterol Calculated 96 mg/dL (<100); Potassium 4.5 mmol/L (3.3-5.1); Sodium 139 mmol/L (135-145); Total Protein 7.6 g/dL (6.5-8.0); Triglycerides 66 mg/dL (<150)
[2024-04-05 12:58] LABS: TSH reflex Free T4 2.59 uIU/mL (0.32-4.0)
== END 2024-04-05 08:26 | disposition home or self-care (01) ==
LOC: HO.WFDLDS 08:25
PROVIDERS: Visit Provider Nurse Practitioner Family
DX: Z00.00 Encounter for general adult medical examination without abnormal findings (principal); E11.65 Type 2 diabetes mellitus with hyperglycemia; Z79.4 Long term (current) use of insulin; E55.9 Vitamin D deficiency, unspecified
CPT/HCPCS: 36415; 80053; 80061; 81001; 82306; 84443; 85025; 87086

== ENCOUNTER 2024-04-10 10:07 | Outpatient (AMB) | payer OTHER, SELFPAY ==
--- NOTE | 2024-04-10 10:16 | A.OFFPC_ITS ---
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 Required: No Is last menstrual period known: No Post menopausal: No Patient : No Allergies atorvastatin [Lipitor] Allergy (Unknown, Verified 04/10/24 10:32) unknown cephalexin [Keflex] Allergy (Unknown, Verified 04/10/24 10:32) unknown codeine Allergy (Unknown, Verified 04/10/24 10:32) unknown morphine Allergy (Unknown, Verified 04/10/24 10:32) unknown oxycodone [Percocet] Allergy (Unknown, Verified 04/10/24 10:32) unknown Penicillin Allergy (Unknown, Uncoded 04/10/24 10:32) unknown Medication List - Last Reconciled 04/10/24 by Cedric Friedman CNP albuterol sulfate 90 mcg/actuation (ProAir HFA) 2 puffs inhalation Q6H PRN amlodipine 10 mg PO DAILY 90 days ascorbate calcium (vitamin C) 500 mg PO DAILY blood sugar diagnostic (360T Verio test strips) Three times a day FUTURE REFILLS FROM PCP. blood-glucose meter ([employer] Verio Flex Start kit) As directed 3 times a day cholecalciferol (vitamin D3) 25 mcg PO DAILY 90 days cyanocobalamin (vitamin B-12) 500 mcg sublingual DAILY 30 days flash glucose sensor ([employer] 14 Day Sensor kit) every 14 days fluticasone propionate 50 mcg/actuation 1 spray intranasal DAILY insulin glargine (Lantus Solostar U-100 Insulin) 30 units (0.3 mL) subcut QAM lancets ([employer] Delica Lancets) Three times a day losartan 100 mg PO DAILY 30 days metformin ER 1,000 mg (2 x 500 mg) PO BID 90 days metoprolol tartrate 25 mg PO BID 90 days omeprazole 20 mg PO DAILY 90 days pen needle, diabetic (BD Rosina 2nd Gen Pen Needle) Twice a day rivaroxaban 20 mg PO DAILY sitagliptin phosphate (Januvia) 50 mg PO DAILY 90 days Tobacco use date assessed: 02/06/24 Fall risk assessment: No Falls in past year Last assessed Fall Risk: 04/10/24 Dental Screening Dental Screen Date: 04/10/24 Did you have a dental visit in the last 12 months?: Yes Did you have a dental problem in the last 6 months where you did not have access to dental care?: No Was dental information given to patient?: Patient has dentist HPI HPI Comments History of Present Illness Details 68-year-old Georgian-speaking female, acc ompanied by her , pres ents for an extended physical exam and diabetes, hypertension, and review of recent labs result follow-up. . She has past medical history significant for hypertension, type 2 diabetes on insulin, hyperlipidemia, vitamin-D deficiency, vitamin B12 deficiency, iron deficiency anemia, AFib, and GERD. She has h/o depression with controlled symptoms without medications or psychotherapy. She admits to taking her medications as prescribed and making healthy dietary choices. She notes that she has not been exercising. She sleeps well. She reports frontal headache, productive cough with yellow phlegm, and generalized body aches for the past 5 days. Denies known sick contact. She notes that covid and flu tests by her visiting nurse. She notes red, itchy rash to her hands and legs for the past 2 months. She denies using new body products or laundry detergent before onset of the rash. She notes that she experienced anxiety symptoms such as heart palpitation, diaphoresis, and shakiness once last week. She went to [facility] ED but left without being seen. She notes that she has not experienced anxiety symptoms since her last episode. She denies current anxiety or depressive symptoms. She denies SI/HI. She declines psychotherapy or pharmacotherapy. Nonsmoker. Does not drink alcohol. No recreational drugs She states that she had an eye exam a year ago with [facility] and has a f/u exam in 06/2023. She will sign a release for her PCP to obtain record She notes that her last mammogram was 6 months ago at [facility]: normal. She will sign a release for her PCP to obtain records She states that her last colonoscopy was 7 yrs ago at [facility]: benign polyps. She notes that she did an intake with [facility] [place] [place] [facility] for a colonoscopy but was never contacted to schedule a colonoscopy Last pap smear test was with [facility] 2 years ago: normal. 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 Family/Other Diabetes Mother Mental health disorder Social History Household Members: Spouse Housing: Apartment Alcohol intake: current Alcohol intake frequency: does not drink Patient Tobacco Use Status: Never used Tobacco e-Cigarette/Vaping Use: Never Used service: No Current occupational status: disabled Cognitive needs: No Hearing needs: No Vision needs: No Questionnaire PHQ-9 Over the last 2 weeks, how often have you been bothered by any of the following problems? 1. Little interest or pleasure in doing things: nearly every day 2. Feeling down, depressed, or hopeless: not at all 3. Trouble falling or staying asleep, or sleeping too much: nearly every day 4. Feeling tired or having little energy: nearly every day 5. Poor appetite or overeating: nearly every day 6. Feeling bad about yourself - or that you are a failure or have let yourself or your family down: not at all 7. Trouble concentrating on things, such as reading the newspaper or watching television: several days 8. Moving or speaking so slowly that other people could have noticed. Or the opposite - being so fidgety or restless that you have been moving around a lot more than usual: not at all 9. Thoughts that you would be better off or of hurting yourself in some way: not at all Total score: 13 Depression Screening Interpretation: Positive Depression Screening Follow-up: Existing condition Depression Screening Done: Yes 27760 - PHQ-9 Billing: Yes Source: Developed by Drs. Rob Johnson, Karla Washington, Colin Garcia and colleagues, with an educational lele from [employer]. Thrive Questionnaire Date Thrive assessed: 04/10/24 I am a: Patient What is your living situation today?: I have a steady place to live Within the past 12 months, did the food you bought not last and you didn't have the money to get more?: Sometimes True Within the past 12 months, did you worry whether your food would run out before you got money to buy more?: Sometimes True Do you have trouble paying for medicines?: No Do you have trouble getting transportation to medical appointments?: No Do you have trouble paying your heating and electricity bill?: No Do you have trouble taking care of your child, family member or friend?: No Do you have trouble with day-to-day activities such as bathing, preparing meals, shopping, managing finances, etc.?: No Are you currently unemployed and looking for a job?: No Are you interested in more education?: Yes Please select the resources that you would like help with: Food and Education Currently or been in a relationship where the following occur: No concerns reported THRIVE Score: 2 AUDIT C Alcohol Use Questionnaire (AUDIT-C) 1. How often do you have a drink containing alcohol?: Never 3. How often do you have six or more drinks on one occasion?: Never Total Score: 0 JULIAN-7 AMB Questionnaire JULIAN-7 Date JULIAN - 7 assessed: 04/10/24 Feeling nervous, anxious, or on edge: 2 = More than half the days Not being able to stop or control worryin = More than half the days Worrying too much about different things: 0 = Not at all Trouble relaxin = More than half the days Being so restless that it is hard to sit still: 1 = Several days Becoming easily annoyed or irritable: 2 = More than half the days Feeling afraid as if something awful might happen: 2 = More than half the days Total JULIAN-7 score (0-4 normal; 5-9 mild; 10-14 moderate; 15-21 severe): 11 Source: Developed by Drs. Rob Johnson, Karla Washington, Colin Garcia and colleagues, with an educational lele from [employer]. JULIAN-7 Assessment Billing JULIAN-7 Assessment Tool: JULIAN-7 Assessment 92033 ACT Questionnaire In the past 4 weeks, how much of the time did your asthma keep you from getting as much done at work, school or at home?: None of the time During the past 4 weeks, how often have you had shortness of breath?: 3-6 times a week During the past 4 weeks, how often did your asthma symptoms wake you up at night or earlier than usual in the morning?: Not at all During the past 4 weeks, how often have you had to use your rescue inhaler or nebulizer medication?: Not at all How would you rate your asthma control during the past 4 weeks?: Well controlled Score: 22 Review of Systems Const Details: Denies chills, Denies fatigue, Denies fever(s), Denies headache(s) and Denies weakness HEENT Denies change in vision, Denies dizziness, Denies headache(s), Denies hearing loss, Denies nasal congestion, Denies sinus pain, Denies sinus pressure and Denies sore throat Card Denies chest pain, Denies lightheadedness, Denies dyspnea and Denies other (palpitations) Resp Denies cough, Denies dyspnea and Denies wheezing GI Denies abdominal pain, Denies melena, Denies hematochezia, Denies change in bowel habits, Denies dyspepsia and Denies nausea Denies hematuria and Denies dysuria Musc Denies abnormal gait, Denies myalgias, Denies arthralgias, Denies numbness and Denies tingling Skin/Breast Denies rash, Denies unusual bruising and Denies wounds Neuro Denies abnormal gait, Denies dizziness, Denies headache(s), Denies memory loss, Denies numbness, Denies Sensory deficit (Neuro), Denies tingling and Denies weakness Psych Denies anxiety, Denies depression and Denies memory loss Endo Denies cold intolerance, Denies fatigue, Denies heat intolerance, Denies polydipsia and Denies polyuria Marshall/Lymph Denies easy bleeding and Denies easy bruising Aller/Immun Denies wheezing Physical exam (Primary Care) Vital Signs: Last Vital Signs Temp 98.0 F 04/10/24 10:26 Pulse 61 04/10/24 10:26 Resp 16 04/10/24 10:26 BP 130/70 04/10/24 11:37 Pulse Ox 96 04/10/24 10:26 Oxygen Delivery Method Room Air 04/10/24 10:26 BMI result Body Mass Index 24.9 Tobacco/Smoking Status: Tobacco use Status Tobacco use date assessed 02/06/24 04/10/24 10:18 Patient Tobacco Use Status Never used Tobacco 04/10/24 10:18 e-Cigarette/Vaping Use Never Used 04/10/24 10:18 PHQ-9: PHQ-9 Score PHQ-9: Total score 13 04/10/24 10:35 Depression Screening Interpretation: Positive Depression Screening Follow-up: Existing condition Thrive Assessment: Date of Thrive Assessment Date Thrive assessed 04/10/24 04/10/24 10:30 Currently or been in a relationship where the following occur: No concerns reported Const Other: General: no acute distress, well developed, alert and awake Nutritional Appearance: well nourished Orientation/consciousness: patient oriented x3 HENMT Head: Yes normocephalic and Yes atraumatic Ears: hearing grossly normal bilaterally and TM's normal bilaterally General nose exam: Normal external nose present and Normal nares present Mouth: Normal oral and palatal mucosa present and moist mucous membranes Teeth and gingiva: dentition normal Throat: Yes oropharynx normal Eyes Pupils: Equal, round and reactive pupils present and Pupil accommodation reflex normal EOM: EOMs intact bilaterally Neck Neck: Yes normal visual inspection, Yes no lymphadenopathy and Yes trachea midline Thyroid: Thyroid normal Carotids: no bruits Lymphatic: no lymphadenopathy noted Chest Chest palpation & inspection: normal inspection of the chest Resp Effort & Inspection: normal respiratory effort Auscultation: clear to auscultation bilaterally Cardio Rate: regular rate Rhythm: regular rhythm Heart sounds: S1 normal heart sound present, S2 normal heart sound present, no gallops, no murmurs and no rubs Bruits: no abdominal aortic bruits and no carotid bruits GI Palpation (GI): No Abdominal aortic bruit present, Soft to palpation, nontender, No hepatosplenomegaly present and No Rebound tenderness present Auscultation: normal bowel sounds General: Yes no CVA tenderness Back/Spine/Pelvis Back: no CVA tenderness Cervical Spine: cervical ROM normal and No Cervical spine tenderness Thoracic/Lumbar Spine: thoraco-lumbar ROM normal, No pain with thoraco-lumbar ROM, No thoracic spinal tenderness and No lumbar spinal tenderness Skin General: warm and dry. Normal skin color. Normal skin turgor Lesions: no lesions Rashes: Slightly red, widespread macular rash to her bilateral upper and lower extremities Trauma: no lacerations or abrasions Wounds: no wounds Nails: normal Neuro General: patient oriented x3, gait normal and CN's II-XI intact bilaterally Cranial nerves: Yes Equal, round and reactive pupils present Cognition (Neuro): normal cognition Gait exam (Neuro): Normal gait present Motor exam (neuro): 5/5 motor strength present throughout Sensory Exam: No Sensory deficit (Neuro) Deep tendon reflexes (DTR's): Right patellar reflex intensity grade: 2+ and Left patellar reflex intensity grade: 2+ Extrem General: Yes normal to inspection, No edema and No calf tenderness Psych Appearance: grossly normal Affect: normal affect Attitude: cooperative Thought process: Normal thought process present Results AMB Hemoglobin A1c AMB Hemoglobin A1c 7.9 % Last Edit by Bebe Strickland MA on 04/10/24 11:14 Results Reviewed Results Reviewed: Laboratory Last Values Hgb A1c (Clinic) 7.9 % (4.0-6.0) H 04/10/24 10:37 Coding Level of Care Code Est Pt Level 4 (78417) Est Pt Prev Care >65y(02157) Diagnoses Normal physical examination, routine Z00.00 Essential hypertension I10 Hypertension type: essential hypertension Type 2 diabetes mellitus with hyperglycemia, with long-term current use of insulin E11.65; Z79.4 Diabetes mellitus complication status: with hyperglycemia 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: with intermodal owner operator truck driver use Diabetes mellitus type: type 2 Depression, unspecified depression type F32.A Depression Type: unspecified Viral upper respiratory illness J06.9 Rash R21 Additional Codes JULIAN-7 Assessment Billing - JULIAN-7 Assessment Tool: JULIAN-7 Assessment 72311 ([id number]) Assessment & Plan Assessment & Plan (1) Normal physical examination, routine: Code(s): Z00.00 - Encounter for general adult medical examination without abnormal findings Category: Medical Plan: No significant functional limitation noted Continue current treatment regimen Healthy diet and routine exercise encouraged Follow-up in 2-3 months for hypertension and diabetes or return sooner with symptoms or concerns Verbalized understanding and agreed with treatment plan (2) HTN (hypertension): Code(s): I10 - Essential (primary) hypertension Category: Medical Qualifiers: Hypertension type: essential hypertension Qualified Code(s): I10 - Essential (primary) hypertension Plan: Resting blood pressure is 130/70, slightly above goal of less than 130/80 Continue current treatment regimen Low-sodium diet encouraged Follow-up in 3 months Verbalized understanding and agreed with the treatment plan (3) Diabetes mellitus: Code(s): E11.9 - Type 2 diabetes mellitus without complications Category: Medical Qualifiers: Diabetes mellitus complication status: with hyperglycemia 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 She had two low fasting glucose in 40s about 6 months ago but did not eat the night before. No low blood glucose reading in the past 6 months Will increase Lantus to 35 units daily. Advised to administer as prescribed Continue to take metformin and Januvia as prescribed ADA diet and routine exercise encouraged Encouraged to report hypoglycemic episodes Follow-up in 3 months or sooner with symptoms or concerns Verbalized understanding and agreed with the treatment plan (4) Depression: Code(s): F32.9 - Major depressive disorder, single episode, unspecified Category: Medical Qualifiers: Depression Type: unspecified Qualified Code(s): F32.A - Depression, unspecified Plan: Reports controlled anxiety and depressive symptoms PHQ-9 and JULIAN-7 scores revealed moderate depression and anxiety Routine exercise encouraged Follow-up with symptoms or concerns Verbalized understanding and agreed with the plan (5) Viral upper respiratory illness: Code(s): J06.9 - Acute upper respiratory infection, unspecified Category: Medical Plan: Reports frontal headache, productive cough with yellow phlegm, and generalized body aches for the past 5 days. No known sick contact. She recently tested negative for covid and flu Likely viral illness though possibly allergies No exam evidence of bacterial infection Breathing is unlabored. Lung sounds clear and equal bilaterally Viral illness There is no antibiotic medication for viruses.? They must run their course.? Most average 5-7 days but 7-10 days is not uncommon and up to 14 days is still possible.? A cough is often the last symptom to resolve and this can last for weeks in some cases. Rest Hydrate well -? Drink plenty of fluids.? Especially water. Tylenol or ibuprofen for muscle aches, headache, fever/discomfort Cannot rule out COVID-19/RSV/Flu infection Nasal swab acquired and will be sent to the lab Benzonatate as prescribed Return for new or worsening symptoms Verbalized understanding and agreed with treatment plan. (6) Rash: Code(s): R21 - Rash and other nonspecific skin eruption Category: Medical Plan: Reports red, itchy rash to her hands and legs for the past 2 months. No new body products or laundry detergent before onset of the rash Slightly red, widespread macular rash to her bilateral upper and lower extremities Etiology is uncertain Will order hydroxyzine 25 mg twice daily to target itching. Advised to take as prescribed. Instructed on the risks, benefits, and potential adverse reactions of the medication Follow-up with worsening or new signs and symptoms Verbalized understanding and agreed with treatment plan Orders: Orders AMB Hemoglobin A1c 04/10/24 Z13.9 - Encounter for screening, unspecified SARS-CoV2/FLU/RSV 04/10/24 J06.9 - Acute upper respiratory infection, unspecified Medications: New benzonatate 100 mg PO BID PRN 20 caps 0RF cough hydroxyzine HCl 25 mg PO BID PRN 30 tabs 0RF itching Changed From albuterol sulfate 90 mcg/actuation (ProAir HFA) 2 puffs inhalation Q6H PRN 8.5 grams 4RF shortness of breath or wheezing To albuterol sulfate 90 mcg/actuation 2 puffs inhalation Q6H PRN 8.5 grams 4RF shortness of breath or wheezing From ascorbate calcium (vitamin C) 500 mg PO DAILY To ascorbate calcium (vitamin C) 500 mg PO DAILY 90 days 90 tabs 3RF From insulin glargine (Lantus Solostar U-100 Insulin) 30 units (0.3 mL) subcut QAM 3 mL 4RF To insulin glargine (Lantus Solostar U-100 Insulin) 35 units (0.35 mL) subcut QAM 3 mL 4RF
[2024-04-10 10:26] VITALS: BP 138/70; PULSE 61; RESP 16; TEMP 36.7; O2SAT 96; BMI 24.9
[2024-04-10 11:37] VITALS: BP 130/70
== END 2024-04-10 12:34 | disposition home or self-care (01) ==
PROVIDERS: PCP Nurse Practitioner Family; Visit Provider Nurse Practitioner Family
DX: Z00.00 Encounter for general adult medical examination without abnormal findings (principal); E11.65 Type 2 diabetes mellitus with hyperglycemia; Z79.4 Long term (current) use of insulin; I10 Essential (primary) hypertension; F32.A Depression, unspecified; J06.9 Acute upper respiratory infection, unspecified; R21 Rash and other nonspecific skin eruption

== ENCOUNTER 2024-04-10 10:07 | Outpatient (REF) | payer OTHER, SELFPAY ==
[2024-04-10 15:11] LABS: Influenza A PCR NEGATIVE (Negative); Influenza B PCR NEGATIVE (Negative); Resp Syncy Virus RNA Qual PCR NEGATIVE (Negative); SARS COV2 PCR INHOUSE NEGATIVE (Negative)
== END 2024-04-10 10:08 | disposition home or self-care (01) ==
LOC: HO.LAB 10:07
PROVIDERS: PCP Nurse Practitioner Family; Visit Provider Nurse Practitioner Family
DX: Z00.01 Encounter for general adult medical examination with abnormal findings (principal); I10 Essential (primary) hypertension; E11.65 Type 2 diabetes mellitus with hyperglycemia; F32.9 Major depressive disorder, single episode, unspecified; J06.9 Acute upper respiratory infection, unspecified; R21 Rash and other nonspecific skin eruption; Z79.4 Long term (current) use of insulin
CPT/HCPCS: 0241U; 83036; 96127; 96160; 99212; 99397

== ENCOUNTER 2024-04-15 10:26 | Outpatient (AMB) | payer OTHER, SELFPAY ==
[2024-04-15 10:28] VITALS: BP 136/64; PULSE 60; O2SAT 98; BMI 24.7
--- NOTE | 2024-04-15 10:28 | MHC.OFFVIS ---
Vital Signs 04/15/24 10:28 Height 5 ft 8 in Weight 162 lb 4.163 oz BMI 24.7 BP 136/64 Blood Pressure Location Rt brachial Position Sitting Pulse 60 Pulse Source Pulse Oximeter Pulse Oximetry (%) 98 Oxygen Delivery Method Room Air Intake Visit Reasons: Gastroesophageal reflux disease (GERD) Intake Note: Relevant Flags or Indicators ? Requires Field Contact Technician? Chelo Hernandez presents in office today for a scheduled ~1 year FUV. Pt to re-establish care. CC; Since last visit; labs ordered ? per pcp, done. Relevant GI Sx as reported per pt? Reflux No other sx reported. ? Hx of any recent surgeries? None Field Contact Technician Required: Yes Field Contact Technician Services: Field Contact Technician Present Field Contact Technician Name: [id number] Storm Information Interpreted: non-clinical & clinical Accompanied by: Spouse Allergies atorvastatin [Lipitor] Allergy (Unknown, Verified 04/15/24 10:28) unknown cephalexin [Keflex] Allergy (Unknown, Verified 04/15/24 10:28) unknown codeine Allergy (Unknown, Verified 04/15/24 10:28) unknown morphine Allergy (Unknown, Verified 04/15/24 10:28) unknown oxycodone [Percocet] Allergy (Unknown, Verified 04/15/24 10:28) unknown Penicillin Allergy (Unknown, Uncoded 04/10/24 10:32) unknown HPI HPI Gastroesophageal reflux disease (GERD): Details: LAST VISIT: Colon cancer screening GERD (gastroesophageal reflux disease) Plan Patient denies any GI, cardiac or respiratory symptoms.? Denies any issues with anesthesia in the past.? Denies any history of sleep apnea.? No history the of infectious diseases in the past or present.? Patient is diabetic, takes Lantus and metformin. Patient takes Lantus in the morning, she can take half of the Lantus day before the procedure hold the Lantus the day of the procedure if her procedures in the morning and take it when she gets back home. Patient is on his low-dose aspirin.? Paternal uncle was diagnosed with colorectal cancer.? Patient denies melena, hematochezia, unintentional weight loss or ribbon like stools.? Patient reports acid reflux suppressed with omeprazole. Patient reports occasional postprandial abdominal bloating depending on what she eats in the left upper quadrant. She reports that she moves her bowels every day. Discussed at length the pre-procedure,? prep, diet & medications as well as what to expect prior, during and after the procedure.?? Stressed the importance of good bowel prep. ?Recommended the use of Vaseline or Calmoseptine OTC & baby wipes with bowel movements to promote comfort.? ?Patient verbalizes understanding and agrees to plan of care.? She was given the opportunity to ask questions and all questions answered.? We will see her after the procedure.? TODAY'S VISIT Patient is here today for follow-up and to discuss going for colonoscopy. Patient has colonoscopy was finally scheduled for July. We have not scheduled upper endoscopy and we will to surgical schedulers to add the procedure. Patient reports since last visit increase epigastric pain postprandially. Patient reports that even when she was taking omeprazole her symptoms of acid reflux continued. Worse with certain food. Patient denies dysphagia or odynophagia. Reports occasional epigastric pain postprandially. Patient reports that for the most part she is moving her bowels without any issues. Patient denies melena, hematochezia, unintentional weight loss or ribbon like stools. Patient was diagnosed with AFib and is on Eliquis twice a day. She is having appointment with her filling hauler in April we will send a message to see is they can do risk stratification before sending her for procedure. 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 Family/Other Diabetes Mother Mental health disorder Social History Household Members: Spouse Housing: Apartment Alcohol intake: current Alcohol intake frequency: does not drink Patient Tobacco Use Status: Never used Tobacco e-Cigarette/Vaping Use: Never Used service: No Current occupational status: disabled Cognitive needs: No Hearing needs: No Vision needs: No Review of Systems Const Denies weight gain and Denies weight loss ENT Reports no additional complaints, Denies dysphagia and Denies odynophagia Card Reports no additional complaints Resp Reports no additional complaints GI Denies abdominal pain, Denies belching, Denies melena, Denies bloating, Denies change in bowel habits, Denies dysphagia, Denies excessive flatus, Reports dyspepsia, Reports heartburn, Denies diarrhea, Denies loose stools, Denies nausea, Denies odynophagia and Denies vomiting Reports no additional complaints Musc Reports no additional complaints Neuro Reports no additional complaints Psych Reports no additional complaints Endo Reports no additional complaints Physical Exam Vital Signs: Last Vital Signs Pulse 60 04/15/24 10:28 BP 136/64 04/15/24 10:28 Pulse Ox 98 04/15/24 10:28 Oxygen Delivery Method Room Air 04/15/24 10:28 BMI result Body Mass Index 24.7 Const General: healthy appearing, no acute distress and well developed Nutritional Appearance: well nourished Orientation/consciousness: patient oriented x3 Resp Effort & Inspection: normal respiratory effort, able to speak in complete sentences, no tracheal deviation and symmetric chest movement Auscultation: clear to auscultation bilaterally Cardio Rate: regular rate GI Inspection: Yes normal to inspection and No distended Palpation (GI): Soft to palpation, not firm, nontender and No hepatosplenomegaly present Auscultation: normal bowel sounds General: Yes no CVA tenderness Back/Spine/Pelvis Back: no CVA tenderness Skin General skin exam: elasticity normal, turgor normal and dry skin Neuro General: patient oriented x3 Psych Appearance: grossly normal Mental Status: mental status grossly normal Assessment & Plan Assessment & Plan (1) Colon cancer screening: Code(s): Z12.11 - Encounter for screening for malignant neoplasm of colon Category: Medical (2) GERD (gastroesophageal reflux disease): Code(s): K21.9 - Gastro-esophageal reflux disease without esophagitis Category: Medical Qualifiers: Esophagitis presence: esophagitis presence not specified Qualified Code(s): K21.9 - Gastro-esophageal reflux disease without esophagitis Plan Patient will start taking pantoprazole in the morning and will stop omeprazole. Avoid dietary triggers and late night snacking. Staying upright for minimum 3 hours after meals discussed with patient. Patient will go for upper endoscopy to rule out gastritis, esophagitis, gastric or peptic ulcer, H pylori, Palacios's. Message sent to surgical schedulers to add this procedure to the procedure booked for the 08 of August. Message sent to Cardiology for clearance before procedure. I will see her in 3 months to re-evaluate and to discuss going for colonoscopy as well as going over the prep. She is agreeable to this plan and verbalizes understanding of instructions. She was given the opportunity to ask questions and all questions answered. Thank you for allowing me to participate in her care Medications: New pantoprazole take one tablet half an hour before breakfast 40 mg PO DAILY 30 tabs 2RF K21.9 - Gastro-esophageal reflux disease without esophagitis Discontinued omeprazole Discontinued Reason: Doctor's Order 20 mg PO DAILY 90 days 90 caps 1RF Coding Level of Care Code Est Pt Level 3 (86020) Diagnoses Colon cancer screening Z12.11 Gastroesophageal reflux disease, unspecified whether esophagitis present K21.9 Esophagitis presence: esophagitis presence not specified Time Spent (min) 30 Comment 20 minutes spent with patient and additional 10 minutes spent reviewing records
== END 2024-04-15 11:18 | disposition home or self-care (01) ==
PROVIDERS: PCP Nurse Practitioner Family; Visit Provider Nurse Practitioner Family
DX: K21.9 Gastro-esophageal reflux disease without esophagitis (principal); Z12.11 Encounter for screening for malignant neoplasm of colon
CPT/HCPCS: 99213

== ENCOUNTER → 2024-04-15 10:26 | Outpatient (BNVA) | payer OTHER, SELFPAY | PROVIDERS: PCP Nurse Practitioner Family; Visit Provider Nurse Practitioner Family | DX: Z12.11 Encounter for screening for malignant neoplasm of colon (principal); K21.9 Gastro-esophageal reflux disease without esophagitis | CPT/HCPCS: 99212 ==

== ENCOUNTER 2024-05-22 12:55 | Outpatient (AMB) | payer OTHER, SELFPAY ==
[2024-05-22 13:03] VITALS: BP 120/70; PULSE 61; BMI 25.1
--- NOTE | 2024-05-22 13:03 | MHC.OFFVIS ---
Vital Signs 05/22/24 13:03 Height 5 ft 8 in Weight 164 lb 14.492 oz BMI 25.1 BP 120/70 Blood Pressure Location Lt brachial Position Sitting Pulse 61 Pulse Source Monitor Intake Visit Reasons: 3 mth fu/ clear for egd Intake Note: 3 mth f/up/ clear for egd Telehealth Nurse Educator Required: Yes Telehealth Nurse Educator Language: Sticker On Name: nathalie/Roscoe [phone] Accompanied by: Significant Other Allergies atorvastatin [Lipitor] Allergy (Unknown, Verified 04/15/24 10:28) unknown cephalexin [Keflex] Allergy (Unknown, Verified 04/15/24 10:28) unknown codeine Allergy (Unknown, Verified 04/15/24 10:28) unknown morphine Allergy (Unknown, Verified 04/15/24 10:28) unknown oxycodone [Percocet] Allergy (Unknown, Verified 04/15/24 10:28) unknown Penicillin Allergy (Unknown, Uncoded 04/10/24 10:32) unknown Medication List - Last Reconciled 05/22/24 by Tommy Stacy MD albuterol sulfate 90 mcg/actuation 2 puffs inhalation Q6H PRN amlodipine 10 mg PO DAILY 90 days ascorbate calcium (vitamin C) 500 mg PO DAILY 90 days benzonatate 100 mg PO BID PRN blood sugar diagnostic ([place] Verio test strips) Three times a day FUTURE REFILLS FROM PCP. blood-glucose meter ([place] Verio Flex Start kit) As directed 3 times a day cholecalciferol (vitamin D3) 25 mcg PO DAILY 90 days cyanocobalamin (vitamin B-12) 500 mcg sublingual DAILY 30 days flash glucose sensor ([employer] [place] 14 Day Sensor kit) every 14 days fluticasone propionate 50 mcg/actuation 1 spray intranasal DAILY hydroxyzine HCl 25 mg PO BID PRN insulin glargine (Lantus Solostar U-100 Insulin) 35 units (0.35 mL) subcut QAM lancets ([place] Delica Lancets) Three times a day losartan 100 mg PO DAILY 30 days metformin ER 1,000 mg (2 x 500 mg) PO BID 90 days metoprolol tartrate 25 mg PO BID 90 days pantoprazole 40 mg PO QAM pen needle, diabetic (BD Rosina 2nd Gen Pen Needle) Twice a day rivaroxaban 20 mg PO DAILY sitagliptin phosphate (Januvia) 50 mg PO DAILY 90 days HPI Comments Details: 69-year-old female here for follow-up. She has elevated blood pressures. She was advised by her primary care physician to increase amlodipine from 5-10 mg once a day. She has brought her home blood pressure log which is mostly showing normal blood pressures with some days in high 140s to 150s. She is denying any symptoms. In particular no chest pain or shortness of breath. No dizziness. She had some palpitations but they are resolved at this point. 01/22/2024: She is here for follow-up. Apparently went to [facility] for recently where she was diagnosed with atrial fibrillation and was started on Eliquis. She is saying that she has been feeling very fatigued since she started Eliquis and the dose was decreased to 2.5 mg twice a day which improved her fatigue somewhat. I have tried to explain to her that fatigue is not a common issue with Eliquis unless someone is getting anemic which does not appear to be the case. After some discussion she agreed to just change Eliquis to rivaroxaban. Denying any other issues currently. Blood pressure is well controlled. EKGs showing sinus bradycardia. 05/22/2024: She is here for follow-up. She needs EGD and colonoscopy and she is here for perioperative cardiovascular risk assessment. ECHO done in 03/08/2024 is showing EF 55-60% with grade 1 diastolic dysfunction, normal right ventricular size and function. Denying chest pain or shortness of breath. Blood pressure is well controlled. 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 Family/Other Diabetes Mother Mental health disorder Social History Household Members: Spouse Housing: Apartment Alcohol intake: current Alcohol intake frequency: does not drink Patient Tobacco Use Status: Never used Tobacco e-Cigarette/Vaping Use: Never Used service: No Current occupational status: disabled Cognitive needs: No Hearing needs: No Vision needs: No Review of Systems Const Denies chills, Denies fatigue, Denies fever(s), Denies frequent falls, Denies weakness, Denies weight gain and Denies weight loss ENT Denies dizziness Card Denies chest pain, Denies leg edema, Denies lightheadedness, Denies palpitations, Denies dyspnea and Denies dyspnea on exertion Resp Denies cough, Denies dyspnea and Denies dyspnea on exertion GI Denies hematochezia Musc Denies abnormal gait, Denies muscle weakness, Denies numbness, Denies radiating pain into limb and Denies tingling Neuro Denies abnormal gait, Denies dizziness, Denies frequent falls, Denies numbness, Denies tingling and Denies weakness Endo Denies fatigue and Denies palpitations Physical Exam Vital Signs: Last Vital Signs Pulse 61 05/22/24 13:03 BP 120/70 05/22/24 13:03 BMI result Body Mass Index 25.1 GENERAL APPEARANCE: in no acute distress, pleasant. NECK: no carotid bruit, no jugular venous distention. SKIN: no suspicious lesions, warm and dry. HEART: no murmurs, regular rate and rhythm. LUNGS: clear to auscultation bilaterally. ABDOMEN: soft, nontender. EXTREMITIES: no edema. PERIPHERAL PULSES: equal. NEUROLOGIC: No gross deficits, AAO X 3 Office Procedures EKG Details: Sinus rhythm 61 beats per minute, normal axis, right bundle-branch block with QRS duration of 124 milliseconds, QTC 446 milliseconds. [id number], Complete Assessment & Plan Assessment & Plan (1) Afib: Code(s): I48.91 - Unspecified atrial fibrillation Category: Medical (2) Preop cardiovascular exam: Code(s): Z01.810 - Encounter for preprocedural cardiovascular examination Category: Medical Plan 69-year-old female who is here for follow-up. She has paroxysmal atrial fibrillation. She is in sinus rhythm at this point. She has right bundle-branch block at baseline. Blood pressure is well controlled. She is on Xarelto without any bleeding. She has some itching on her legs but this is not a drug rash and I have told her that this is not related to Xarelto. She needs EGD/colonoscopy. She can hold Xarelto for 48 hours before the procedure. Overall intermediate risk for perioperative cardiovascular complications. She will see us back in 6 months. Thank you for allowing me to participate in the care of your patient. Please feel free to contact me if you have any questions. Coding Level of Care Code Est Pt Level 4 (80925) Diagnoses Afib I48.91 Preop cardiovascular exam Z01.810 CPT Codes EKG - CPT: 44903-[id number], Complete ([id number])
--- OUTSIDE RECORDS SUMMARY | 2024-05-28 19:19 | XMS_ITS | Data Portability ---
Author Organization [place] [employer] [place], [place] - [facility] Address [address] [place] [address] Care Team Providers Care Staff Counselor Name Role Phone HIM CCA OTHER Assessment No assessment recorded. Plan of Treatment Reminders Order Date Submit Date Provider Last Modified By Organization Details Last Modified Time Details Appointments None recorded. Lab hemoglobin + hematocrit, blood [facility] [address] [place] [address], [phone], 4 12:08:05 BMP, serum or plasma [address], [address], 4 12:08:06 Referral None recorded. Procedures None recorded. Surgeries None recorded. Imaging electrocard iogram 2023 024 [facility], [address] [place] [address], [phone], 4 12:08:04 Medication Orders None recorded. Patient TargetsNo targets recorded. Patient Instructions Encounter Date Encounter Id Patient Instructions Last Modified By Organization Details Last Modified Time 01/03/2024 [id number] orthostatic vitals* akrones Not available 01/03/2024 12:08:02 Reason for Referral None Reported. Results Created Date Observation Date Name Description Value Unit Range Abnormal Flag Note LastModifiedBy Organization Detail LastModifiedTime 01/03/20 24 01/03/2024 BMP, serum or plasm a CRE 0.8 Not Available Main - [address], [address], 01/03/2024 11:53:39 01/03/20 24 01/03/2024 BMP, serum or plasm a GLU 149 Not Available Main - Ins [address], [address], 01/03/2024 11:53:39 01/03/20 24 01/03/2024 BMP, serum or plasm a K+ 4.4 Not Available Main - Ins [address], [address], 01/03/2024 11:53:39 01/03/20 24 01/03/2024 BMP, serum or plasm a Na+ 135 Not Available Main - Ins [address], [address], 01/03/2024 11:53:39 01/03/20 24 01/03/2024 hemog lobin + hemat ocrit , blood Hemoglobin 15.3 Not Available [facility] - [address], [address], 01/03/2024 11:53:33 01/03/20 24 01/03/2024 hemog lobin + hemat ocrit , blood Hematocrit 45 Not Available [facility] - [address], [address], 01/03/2024 11:53:33 01/03/20 24 01/03/2024 ramírez walter am No observ ation record ed. [address], [address], 01/03/2024 12:08:03 Result Notes None recorded. Procedures Surgical History None recorded. Imaging Results Imaging Date Name Status LastModified by Organization Details LastModified Time 01/03/2024 electrocardiogram completed [address], [address], 01/03/2024 12:08:03 Procedure Notes None recorded. Medical Equipment None Reported. Allergies Allergen ID Allergen Name Allergen Category Reaction Reaction Severity Criticality Documentation Date Start Date Code Code System Note Provider Name and Address Organization Details Recorded Time 8800 Medicinal product containin g penicilli n and acting as antibacte rial agent (product) medicatio n Not available Not available Not available 04/16/2024 34551 05 SNOMED Not Available [employer] - production 4 03:47:24 Medications Name Sig Start Date Stop Date Status Note LastModified by Organization Details LastModified Time amlodipine 5 mg tablet TAKE 1 TABLET BY MOUTH EVERY DAY active Not Available Not Available No t Available aspirin 81 mg tablet,delay ed release TAKE 1 TABLET BY MOUTH EVERY DAY active Not Available Not Available No t Available famotidine 20 mg tablet TAKE 1 TABLET BY MOUTH 2 TIMES A DAY DISCONTINUE PANTOPRAZOL E. active Not Available Not Available No t Available cyanocobalam in (vit B-12) 500 mcg tablet 500 MCG SUBLINGUALL Y DAILY FOR 30 DAYS active Not Available Not Available No t Available amlodipine 10 mg tablet TAKE 1 TABLET BY MOUTH EVERY DAY active Not Available Not Available No t Available ferrous sulfate 325 mg (65 mg iron) tablet TAKE 1 TABLET BY MOUTH EVERY DAY active Not Available Not Available No t Available omeprazole 20 mg capsule,michael yed release TAKE 1 CAPSULE BY MOUTH DAILY active Not Available Not Available Not Available bisacodyl 5 mg tablet,delay ed release TAKE 4 TABLETS BY MOUTH AT NOON THE DAY BEFORE YOUR COLONOSCOPY active Not Available Not Available Not Available albuterol sulfate HFA 90 mcg/actuatio n aerosol inhaler INHALE 2 PUFFS EVERY 6 HOURS NEEDED FOR SHORTNESS OF BREATH OR WHEEZING active Not Available Not Available Not Available losartan 100 mg tablet TAKE 1 TABLET BY MOUTH DAILY active Not Available Not Available Not Available fluticasone propionate 50 mcg/actuatio n nasal spray,suspen rasheeda INSTILL 1 SPRAY INTRANASALL Y DAILY ADMINISTER INTO EACH NOSTRIL active Not Available Not Available No t Available metformin ER 500 mg tablet,exten ded release 24 hr TAKE 2 TABLETS BY MOUTH TWICE A DAY active Not Available Not Available No t Available Vitamin D3 25 mcg (1,000 unit) tablet TAKE 1 TABLET BY MOUTH EVERY DAY active Not Available Not Available No t Available metoprolol tartrate 25 mg tablet TAKE 1 TABLET BY MOUTH TWICE A DAY active Not Available Not Available No t Available Januvia 50 mg tablet TAKE 1 TABLET BY MOUTH EVERY DAY active Not Available Not Available No t Available Lantus Solostar U-100 Insulin 100 unit/mL (3 mL) subcutaneous pen INJECT 20 UNITS SUBCUTANEOU S INJECTION DAILY active Not Available Not Available No t Available Gavilax 17 gram/dose oral powder 238 G ORALLY ONCE DIRECTED BY [facility] active Not Available Not Available No t Available OneTouch Verio test strips TEST THREE TIMES A DAY. FUTURE REFILLS FROM PCP. active Not Available Not Available No t Available Eliquis 5 mg tablet active Not Available Not Available Not Available BD Rosina 2nd Gen Pen Needle 32 gauge x 5/32 TWICE A DAY active Not Available Not Available Not Available OneTouch Delica Plus Lancet 30 gauge USE TO TEST BLOOD SUGARS 3 TIMES A DAY active Not Available Not Available Not Available Vitals Date Recorded Heart rate Oxygen saturation Oxygen saturation in Arterial blood by Pulse oximetry Body temperature Respiratory rate Body height Body weight Heart rate Systolic blood pressure Diastolic blood pressure Systolic blood pressure Diastolic blood pressure Provider Name and Address Organization Details Last Updated DateTime 4 52 /min 97 % 97 % 97.2 [degF] 16 /min 172.72 cm 26401.8 64 g 56 /min 150 mm[Hg] 80 mm[Hg] 130 mm[Hg] 78 mm[Hg] Not Available [employer] 4 11:54:25 Date Recorded Heart rate Body temperature Respiratory rate Oxygen saturation Oxygen saturation in Arterial blood by Pulse oximetry Systolic blood pressure Diastolic blood pressure Provider Name and Address Organization Details Last Updated DateTime 4 70 /min 96.9 [degF] 16 /min 97 % 97 % 148 mm[Hg] 81 mm[Hg] Not Available [employer] 4 11:31:00 Social History None recorded. Functional Status None recorded. Mental Status None recorded. Family History Nothing Reported. Medical History No medical history recorded. Gynecological HistoryNo gynecological history recorded. Obstetrics History GPAL:G 0 P 0 0 0 0 Past Encounters Encounter ID Performer Location Encounter Start Date Encounter Closed Date Diagnosis/Indication Diagnosis SNOMED-CT Code Diagnosis ICD10 Code [id number] Madelyn Flores MD Main - [address] [address] [place] [address] 01/03/2024 11:38:46 01/03/2024 22:15:23 Headache 77184235 R51.9 Health Concerns Section Related Observation LastModified by Organization Detai ls LastModified Time None Recorded Concern Status LastModified by Organization Details LastModified Time None Recorded Advance Directives Directive None Recorded Payers Encounter Date Sequence Insurance Name Policy Number Policy Díaz Covered Member ID Díaz Member ID Guarantor Name 01/03/2024 1 [facility] - DOS ON OR AFTER 2022 - DUAL ELIGIBLE - ALF OPTIONS AND ONE CARE (MEDICARE REPLACEMENT/ADV ANTAGE - HMO) Mary Miller [id number] Mary Miller Notes Date Note Type Note Provider Name and Address Organization Details Recorded Time 01/03/2024 text/html [facility] Nurse Triage Notes (Daisha Regalado): Reason For Request: Patient left ER 2 days ago ref cardiac issues, took medicine, and now she had a headache, and dizziness and cramps. Chief Complaints: Syncope/Dizziness/ Lightheadedness PMH: Heart Disease, Diabetes, Hypertension Allergies: Penicillin Comments: Allergies: Percocet, Tramadol Patient states she was in ED 3 days ago and was prescribed Eliquis 5mg for Afib. Reporting symptoms of headache and dizziness starting yesterday. Denies chest pain or shortness of breath. Denies bleeding or blood in stool. Engineering Technology Instructor POC Test Results from Moy Garcia - [employer] iSTAT Chem8+ (13:15:45) Na: 135 mEq/L K: 4.4 mEq/L Cl: 97 mEq/L iCa: 1.20 mmol/L TCO2: 31 mmol/L Glu: 149 mg/dL BUN: 14 mg/dL Crea: 0.8 mg/dL Hct: 45 % Hb: 15.3 g/dL A .................. .................. .................. .................. .................. .................. .................. ............... Engineering Technology Instructor Note From Moy Garcia: Smartcare visit for female patient with headache and muscle cramps. Pt reports going to ED a few days ago with palpitations and feeling tired and anxious. Pt noted to be in afib at the time and given IV cardizem. Pt takes metoprolol at baseline. Pt D/C with Rx for eliquis, today reporting headache and muscle cramps since starting eliquis. V/S taken as listed. Pt afebrile. Lung sounds clear. 12 lead EKG shows RBBB, no other findings. 12 lead [place] [facility] with Dr. Flores who ordered BMP. Blood drawn and BMP completed and sent for review. Pt encouraged to follow up with PCP about possible titration of metoprolol and red flags reviewed for worsening headache. Patient education provided. .................. .................. .................. .................. .................. .................. .................. ............... Disposition: Fulfilled Madelyn Flores MD [address] [place] [address],[address], [place], [address], [employer] 01/03/2024 13:30:49 OBGyn Episode No OBEpisode recorded.
== END 2024-05-22 13:25 | disposition home or self-care (01) ==
LOC: HO.HCS 12:55
PROVIDERS: PCP Nurse Practitioner Family; Visit Provider Internal Medicine Cardiovascular Disease
DX: I48.91 Unspecified atrial fibrillation (principal); Z01.810 Encounter for preprocedural cardiovascular examination
CPT/HCPCS: 93010; 99214

== ENCOUNTER → 2024-05-22 12:55 | Outpatient (BNVA) | payer OTHER, SELFPAY | PROVIDERS: PCP Nurse Practitioner Family; Visit Provider Internal Medicine Cardiovascular Disease | DX: Z01.810 Encounter for preprocedural cardiovascular examination (principal); I45.10 Unspecified right bundle-branch block; I48.91 Unspecified atrial fibrillation; I10 Essential (primary) hypertension | CPT/HCPCS: 93005; 99212 ==

== ENCOUNTER → 2024-07-24 10:00 | Outpatient (BNVA) | payer OTHER, SELFPAY | PROVIDERS: PCP Nurse Practitioner Family; Visit Provider Nurse Practitioner Family | DX: E11.65 Type 2 diabetes mellitus with hyperglycemia (principal); I10 Essential (primary) hypertension; Z79.4 Long term (current) use of insulin | CPT/HCPCS: 83036; 99212 ==

== ENCOUNTER 2024-08-08 06:28 | Day surgery (SDC) | payer OTHER, SELFPAY ==
--- OUTSIDE RECORDS SUMMARY | 2024-05-31 07:50 | XMS_ITS | Data Portability ---
Author Organization [place] [employer] [place], [place] - [facility] Address [address] [place] [phone] Care Team Providers Care Cross Country Truck Driver Name Role Phone HIM CCA OTHER Assessment No assessment recorded. Plan of Treatment Reminders Order Date Submit Date Provider Last Modified By Organization Details Last Modified Time Details Appointments None recorded. Lab hemoglobin + hematocrit, blood 2023 024 [email or web address], [address] [place] [address], [address], 4 12:08:05 BMP, serum or plasma [address], [address], 4 12:08:06 Referral None recorded. Procedures None recorded. Surgeries None recorded. Imaging electrocard iogram 2023 024 [facility], [address] [place] [address], [phone], 4 12:08:04 Medication Orders None recorded. Patient TargetsNo targets recorded. Patient Instructions Encounter Date Encounter Id Patient Instructions Last Modified By Organization Details Last Modified Time 01/03/2024 [id number] orthostatic vitals* akrones Not available 01/03/2024 12:08:02 Reason for Referral None Reported. Results Created Date Observation Date Name Description Value Unit Range Abnormal Flag Note LastModifiedBy Organization Detail LastModifiedTime 01/03/20 24 01/03/2024 BMP, serum or plasm a CRE 0.8 Not Available Main - [address], [address], 01/03/2024 11:53:39 01/03/20 24 01/03/2024 BMP, serum or plasm a GLU 149 Not Available Main - Ins [address], [address], 01/03/2024 11:53:39 01/03/20 24 01/03/2024 BMP, serum or plasm a K+ 4.4 Not Available Main - Ins [address], [address], 01/03/2024 11:53:39 01/03/20 24 01/03/2024 BMP, serum or plasm a Na+ 135 Not Available Main - Ins [address], [address], 01/03/2024 11:53:39 01/03/20 24 01/03/2024 hemog lobin + hemat ocrit , blood Hemoglobin 15.3 Not Available [facility] - [address], [address], 01/03/2024 11:53:33 01/03/20 24 01/03/2024 hemog lobin + hemat ocrit , blood Hematocrit 45 Not Available [facility] - [address], [address], 01/03/2024 11:53:33 01/03/20 24 01/03/2024 ramírez walter am No observ ation record ed. [address], [address], 01/03/2024 12:08:03 Result Notes None recorded. Procedures Surgical History None recorded. Imaging Results Imaging Date Name Status LastModified by Organization Details LastModified Time 01/03/2024 electrocardiogram completed [address], [address], 01/03/2024 12:08:03 Procedure Notes None recorded. Medical Equipment None Reported. Allergies Allergen ID Allergen Name Allergen Category Reaction Reaction Severity Criticality Documentation Date Start Date Code Code System Note Provider Name and Address Organization Details Recorded Time 8845 Medicinal product containin g penicilli n and acting as antibacte rial agent (product) medicatio n Not available Not available Not available 04/16/2024 63250 05 SNOMED Not Available [employer] - production [...] ONCE DIRECTED BY GASTROENTER OLOGY DEPARTMENT AT [facility] active Not Available Not Available No t [...] % 97.2 [degF] 16 /min 172.72 cm 19104.8 64 g 56 /min 150 mm[Hg] 80 mm[Hg] 130 mm[Hg] 78 mm[Hg] Not Available [employer] 4 11:54:25 Date Recorded Heart rate Body temperature Respiratory rate Oxygen saturation Oxygen saturation in Arterial blood by Pulse oximetry Systolic blood pressure Diastolic blood pressure Provider Name and Address Organization Details Last Updated DateTime 4 70 /min 96.9 [degF] 16 /min 97 % 97 % 148 mm[Hg] 81 mm[Hg] Not Available [employer] 4 11:31:00 Social History None recorded. Functional Status None recorded. Mental Status None recorded. Family History Nothing Reported. Medical History No medical history recorded. Gynecological HistoryNo gynecological history recorded. Obstetrics History GPAL:G 0 P 0 0 0 0 Past Encounters Encounter ID Performer Location Encounter Start Date Encounter Closed Date Diagnosis/Indication Diagnosis SNOMED-CT Code Diagnosis ICD10 Code [id number] Madelyn Flores MD Main - [address] [address] [place] [address] 01/03/2024 11:38:46 01/03/2024 22:15:23 Headache 18189905 R51.9 Health Concerns Section Related Observation LastModified by Organization Detai ls LastModified Time None Recorded Concern Status LastModified by Organization Details LastModified Time None Recorded Advance Directives Directive None Recorded Payers Encounter Date Sequence Insurance Name Policy Number Policy Díaz Covered Member ID Díaz Member ID Guarantor Name 01/03/2024 1 [facility] - DOS ON OR AFTER 2022 - DUAL ELIGIBLE - PRISON OPTIONS AND ONE CARE (MEDICARE REPLACEMENT/ADV ANTAGE - HMO) Mary Miller [id number] Mary Miller Notes Date Note Type Note [...] breath. Denies bleeding or blood in stool. 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 .................. .................. .................. .................. .................. .................. ............... Machine Maintenance Technician Note From Moy Garcia: Smartcare visit for [...] no other findings. 12 lead sent to [facility]. Consulted with Dr. Flores who ordered BMP. Blood drawn and BMP completed and sent for review. Pt encouraged to follow up with PCP about possible titration of metoprolol and red flags reviewed for worsening headache. Patient education provided. .................. .................. .................. .................. .................. .................. .................. ............... Disposition: Fulfilled Madelyn Flores MD [address] [place] [address],[address], [place], [address], [employer] 01/03/2024 13:30:49 OBGyn Episode No OBEpisode recorded.
[2024-08-06 11:57] VITALS: BMI 24.9
[2024-08-08 06:53] VITALS: BMI 23.5
[2024-08-08] MEDS: Lactated Ringers 1,000 ML 80 ML IVCONT (07:04)
[2024-08-08 07:07] LABS: Glucose, Whole Blood 147 mg/dL (60-115)
[2024-08-08 07:10] VITALS: BP 143/69; PULSE 60; RESP 18; TEMP 36.7; O2SAT 99
--- NOTE | 2024-08-08 07:36 | P.CONAN_ITS ---
HPI - Anesthesia Eval Consult details Narrative: 69 yo female patient for EGD and Colonoscopy [facility] Active Problems Active Problems: All Active Problems Preop cardiovascular exam (Acute) Rash (Acute) Viral upper respiratory illness (Acute) Afib (Acute) Levoscoliosis (Acute) Normal physical examination, routine (Acute) Age-related osteoporosis without current pathological fracture (Acute) Colon cancer screening (Acute) Rash of neck (Acute) Right knee pain (Acute) Laboratory tests ordered as part of a complete physical exam (CPE) (Acute) Hyperlipidemia LDL goal <100 (Acute) Neck complaint (Acute) B12 deficiency (Acute) Overweight (BMI 25.0-29.9) (Acute) 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 Family/Other Diabetes Mother Mental health disorder Family history of problems with anesthesia: No Surgical History Surgical History Hx of colonoscopy Hx of cholecystectomy Hx of hysterectomy History of Problems with Anesthesia: No Social History Social History Household Members: Spouse Housing: Apartment Alcohol intake: current Alcohol intake frequency: does not drink Patient Tobacco Use Status: Never used Tobacco e-Cigarette/Vaping Use: Never Used Advance Directives: No Advance Directives Information Provided: Yes service: No Current occupational status: disabled Cognitive needs: No Hearing needs: No Vision needs: No Meds Allergies Allergy/AdvReac Type Severity Reaction Status Date / Time atorvastatin [Lipitor] Allergy Unknown unknown Verified 07/24/24 10:21 cephalexin [Keflex] Allergy Unknown unknown Verified 07/24/24 10:21 codeine Allergy Unknown unknown Verified 07/24/24 10:21 morphine Allergy Unknown unknown Verified 07/24/24 10:21 oxycodone [Percocet] Allergy Unknown unknown Verified 07/24/24 10:21 Penicillins Allergy Unknown Unknown Verified 08/06/24 11:41 Active Medications: Current Medications Lactated Ringer's (Lr) 1,000 mls @ 80 mls/hr IVCONT .[id number] NAYELI Last Admin: 08/08/24 07:04 Dose: 80 mls/hr Home Medications ?Medication ?Instructions ?Recorded ?Confirmed ?Last Taken ?Type insulin glargine 100 unit/mL (3 20 unit subcut QAM 07/24/24 08/06/24 Unknown History mL) subcutaneous pen (Lantus Solostar U-100 Insulin) omeprazole 20 mg capsule,delayed 40 mg PO DAILY 07/24/24 08/06/24 Unknown History release rivaroxaban 20 mg tablet 20 mg PO QPM 07/24/24 08/06/24 08/02/24 History Exam Height,Weight and Vital Signs: Height 5 ft 8 in Weight 70 kg Last Vital Signs Temp 98.0 F 08/08/24 07:10 Pulse 60 08/08/24 07:10 Resp 18 08/08/24 07:10 BP 143/69 H 08/08/24 07:10 Pulse Ox 99 08/08/24 07:10 O2 Del Method Room Air 08/08/24 07:10 Pertinent Lab Results Pertinent Lab Results: Laboratory Tests 08/08/24 07:03 POC Glucose 147 H Airway Mallampati Class: III (Small mouth opening) TM Dist: >3cm Neck ROM: Full Loose/Missing/Broken Teeth: Yes (Missing molars and some teeth back. Denies broken or loose teeth) Heart: RRR Lungs: CTAB Assessment and Plan Assessment Anesthesia Assessment: Anesthesia Plan Discussed and Chart Reviewed Final Anesthetic Review Family History of Problems with Anesthesia: No History of Problems with Anesthesia: No NPO: Yes ASA Class: III Final Preanesthetic Review: No Changes in Pt Med Stat, Meds/Allgs Chart Reviewed, Consent Obtained/Reviewed and Anes Risks/Benef Reviewed Patient Risk: Intermediate Procedure Risk: Low Assessment/Block/Sedation in SS: Assess/Block/Sedation-SS Anesthetic Plan Anesthetic Plan: TIVA Disposition: Standard PACU
--- NOTE | 2024-08-08 07:47 | P.HPSUR_ITS ---
Pre-Procedural Eval Section A - 24 Hr Update-Section A only Date of Service: 08/08/24 Section B - Complete if H&P > 30 days Chief Complaint: screening,gerd, Details of Present Illness: B12 deficiency Overweight (BMI 25.0-29.9) half-way (current) use of insulin HTN (hypertension) Depression GERD (gastroesophageal reflux disease) Diabetes mellitus Vitamin D deficiency Surgical History Hx of cholecystectomy Hx of hysterectomy Allergies: Allergies Allergy/AdvReac Type Severity Reaction Status Date / Time atorvastatin [Lipitor] Allergy Unknown unknown Verified 07/24/24 10:21 cephalexin [Keflex] Allergy Unknown unknown Verified 07/24/24 10:21 codeine Allergy Unknown unknown Verified 07/24/24 10:21 morphine Allergy Unknown unknown Verified 07/24/24 10:21 oxycodone [Percocet] Allergy Unknown unknown Verified 07/24/24 10:21 Penicillins Allergy Unknown Unknown Verified 08/06/24 11:41 Review of Systems Review of Systems Comment: Ten point ROS negative Exam Exam Comment: Gen appear: No acute distress HEENT: no icterus Chest: No overt resp distress Abd: soft, nontender, nondistended Psych: Stable affect, answering questions appropriately Neuro: A/Ox3 noted to move all extremities spontaneously Ext: no peripheral edema Plan Diagnosis/Plan: Unchanged I have reviewed the history and physical and performed a pertinent physical examination on my patient. No changes have occurred unless specified. Time Spent With Patient Time: Total time managing care of this patient today ____ minutes.
[2024-08-08 09:40] VITALS: BP 115/60; PULSE 55; RESP 12; TEMP 36.1; O2SAT 98
--- NOTE | 2024-08-08 09:42 | P.OPN-COLO_ITS ---
Colonoscopy Operative Note Operative Note Date of Service: 08/08/24 Narrative: Procedure: Upper endoscopy and colonoscopy Indication: GERD, screening Endoscopist: Loretta Arthur MD Anesthesia Provider: Dr Sharon Wolfe Anesthesia type: MAC Instrument: GIF-H190 and PCF-[id number] EGD Procedure:?? The procedure, indications, preparation and potential complications were reviewed with the patient with the help of diplomatic interpreter/translator, who indicated understanding and gave written informed consent to proceed. The endoscope was introduced through the mouth, and advanced to the 2nd part of the duodenum. The mucosa was carefully examined on slow withdrawal of the endoscope. The patient tolerated the procedure well. There were no immediate complications.? EGD Findings:? * Esophagus:? Normal esophageal mucosa was noted. The Z-line was at 35 cm displaced by a hiatal hernia with the diaphragmatic pinch at 38 cm. Cold forceps biopsies were taken from lower esophagus for histology. * Stomach:?Mild erythema noted in the antrum. Numerous sessile and semi pedunculated polyps of size 3-8 mm were noted in the body of the stomach. Cold snare polypectomy was performed for the larger ones for histology. Retroflexion was performed in the cardia. Random cold forceps biopsies were taken from the stomach. * Duodenum:? Normal duodenal mucosa. Cold forceps biopsies were taken from the duodenal bulb and 2nd portion of the duodenum to rule out celiac sprue. Colonoscopy Procedure:? The patient was then turned for the colonoscopy. A digital rectal exam was performed which was normal.? A distal attachment cap was affixed to the tip of the scope and the colonoscope was then inserted through the anus and advanced through the colon and advanced to the cecum at 85 cm.? Appendiceal orifice and ileocecal valve were identified. Mucosa was carefully examined under high definition white light as the instrument was slowly withdrawn in a retrograde panoramic fashion. Retroflexion was performed in rectum. The procedure was not difficult. The quality of the prep was BBPS: 2+2+2 = adequate Withdrawal time 13 minutes Limitations: No limitations Findings: Mucosa: Normal colon and terminal ileum mucosa. Protruding lesions: * 1 sessile polyp of size 4 mm in the sigmoid colon. Snare polypectomy was performed. The polyp was completely removed and retrieved. * Small internal hemorrhoids without stigmata of recent bleeding. Excavated lesions: * Mild to moderate diverticulosis of left side of the colon. Impression: 1. Normal esophagus (biopsy) 2. Hiatal hernia 3. Gastritis (biopsy) 4. Gastric polyps 5. Normal duodenum (biopsy) 6. Normal colon mucosa 7. 1 polyp removed 8. Diverticulosis 9. Internal hemorrhoids Recommendations:?? * Follow-up path results * Avoid NSAIDs * Continue Omeprazole * H Pylori treatment if biopsies + * Repeat endoscopy in 1-2 years if polyps are hyperplastic for complete removal of polyps * Repeat colonoscopy for CRC screening in 7-10 years.
[2024-08-08 09:55] VITALS: BP 129/60; PULSE 63; RESP 20; TEMP 36.4; O2SAT 98
== END 2024-08-08 10:50 | disposition home or self-care (01) ==
PROVIDERS: PCP Nurse Practitioner Family; Visit Provider Internal Medicine
PROC: (CPT 45385; principal; 2024-08-08 08:20)
DX: Z12.11 Encounter for screening for malignant neoplasm of colon (principal); K63.5 Polyp of colon; K57.30 Diverticulosis of large intestine without perforation or abscess without bleeding; K64.8 Other hemorrhoids; K31.7 Polyp of stomach and duodenum; K29.70 Gastritis, unspecified, without bleeding; K44.9 Diaphragmatic hernia without obstruction or gangrene; K21.9 Gastro-esophageal reflux disease without esophagitis; E11.9 Type 2 diabetes mellitus without complications; I10 Essential (primary) hypertension; E78.5 Hyperlipidemia, unspecified; I48.91 Unspecified atrial fibrillation; E55.9 Vitamin D deficiency, unspecified; E53.8 Deficiency of other specified B group vitamins; Z90.49 Acquired absence of other specified parts of digestive tract; Z90.710 Acquired absence of both cervix and uterus; Z79.4 Long term (current) use of insulin; Z79.84 Long term (current) use of oral hypoglycemic drugs; Z79.899 Other long term (current) drug therapy; Z79.02 Long term (current) use of antithrombotics/antiplatelets; Z79.01 Long term (current) use of anticoagulants; Z79.82 Long term (current) use of aspirin
CPT/HCPCS: 45385; 43251; 43239; 82947; 88305; 88313; 88342; J2003; J2704

== ENCOUNTER → 2024-08-08 06:28 | Outpatient (BNV) | payer OTHER, SELFPAY | PROVIDERS: PCP Nurse Practitioner Family; Visit Provider Internal Medicine | DX: Z12.11 Encounter for screening for malignant neoplasm of colon (principal); K63.5 Polyp of colon; K57.30 Diverticulosis of large intestine without perforation or abscess without bleeding; K64.8 Other hemorrhoids; K21.9 Gastro-esophageal reflux disease without esophagitis; K29.70 Gastritis, unspecified, without bleeding; K31.7 Polyp of stomach and duodenum | CPT/HCPCS: 43239; 43251; 45385 ==

== ENCOUNTER → 2024-08-23 08:07 | Outpatient (BNVA) | payer OTHER, SELFPAY | PROVIDERS: PCP Nurse Practitioner Family; Visit Provider Nurse Practitioner Family | DX: I10 Essential (primary) hypertension (principal); K21.9 Gastro-esophageal reflux disease without esophagitis | CPT/HCPCS: 99212 ==

== ENCOUNTER 2024-08-23 09:54 | Outpatient (AMB) | payer OTHER, SELFPAY ==
--- NOTE | 2024-08-23 08:14 | MHC.PC.OV ---
Vital Signs 08/23/24 10:04 08/23/24 10:21 Height 5 ft 8 in Weight 165 lb BMI 25.1 BP 138/64 116/60 Blood Pressure Location Rt brachial Lt brachial Position Sitting Sitting Respiration 16 Pulse 72 Pulse Source Pulse Oximeter Temp 98.3 F Temp Source Oral Pulse Oximetry (%) 98 Oxygen Delivery Method Room Air Intake Visit Reasons: 1 mos HTN Intake Note: patient here for follow up on HTN [employer] Required: No Accompanied by: Is last menstrual period known: No Post menopausal: No Patient : No Allergies atorvastatin [Lipitor] Allergy (Unknown, Verified 08/23/24 10:11) unknown cephalexin [Keflex] Allergy (Unknown, Verified 08/23/24 10:11) unknown codeine Allergy (Unknown, Verified 08/23/24 10:11) unknown morphine Allergy (Unknown, Verified 08/23/24 10:11) unknown oxycodone [Percocet] Allergy (Unknown, Verified 08/23/24 10:11) unknown Penicillins Allergy (Unknown, Verified 08/23/24 10:11) Unknown Medication List - Last Reconciled 08/23/24 by Cedric Friedman CNP albuterol sulfate 90 mcg/actuation 2 puffs inhalation Q6H PRN amlodipine 10 mg PO DAILY 90 days ascorbate calcium (vitamin C) 500 mg PO DAILY 90 days benzonatate 100 mg PO BID PRN blood sugar diagnostic (Discrete Sport Verio test strips) Three times a day FUTURE REFILLS FROM PCP. blood-glucose meter ([employer] Verio Flex Start kit) As directed 3 times a day cholecalciferol (vitamin D3) 25 mcg PO DAILY 90 days cyanocobalamin (vitamin B-12) 500 mcg sublingual DAILY 30 days flash glucose sensor (FreeStyle River 14 Day Sensor kit) every 14 days fluticasone propionate 50 mcg/actuation 1 spray intranasal DAILY insulin glargine (Lantus Solostar U-100 Insulin) 20 units subcut QAM lancets ([employer] Delica Lancets) Three times a day losartan 100 mg PO DAILY 30 days metformin ER 1,000 mg (2 x 500 mg) PO BID 90 days metoprolol tartrate 25 mg PO BID 30 days omeprazole 40 mg PO DAILY pen needle, diabetic (BD Rosina 2nd Gen Pen Needle) Twice a day rivaroxaban 20 mg PO QPM sitagliptin phosphate (Junuvia) 50 mg PO DAILY 90 days Tobacco use date assessed: 08/23/24 Fall risk assessment: No Falls in past year Last assessed Fall Risk: 08/23/24 Dental Screening Dental Screen Date: 08/23/24 Did you have a dental visit in the last 12 months?: No Did you have a dental problem in the last 6 months where you did not have access to dental care?: No Was dental information given to patient?: Patient has dentist HPI HPI Comments History of Present Illness Details 69-year-old Bulgarian-speaking female, accompanied by her , presents for hypertension follow-up. She admits to taking her medications as prescribed without adverse reactions. She reports heartburn since after having a colonoscopy and endoscopy 2 weeks ago. She admits to eating healthy, including low-fat and low-sodium diet. Interpretation by the patient's per patient's request. [facility] Medical History B12 deficiency Overweight (BMI 25.0-29.9) snf (current) use of insulin HTN (hypertension) Depression GERD (gastroesophageal reflux disease) Diabetes mellitus Vitamin D deficiency Surgical History Hx of colonoscopy Hx of cholecystectomy Hx of hysterectomy Family History Father Lung cancer Mother No problems noted. Family/Other Diabetes Mother Mental health disorder Social History Household Members: Spouse Housing: Apartment Are you a primary residential care facility manager to a significant other at home: No Do you presently have visiting nurse or other home services: No Alcohol intake: current Alcohol intake frequency: does not drink Patient Tobacco Use Status: Never used Tobacco e-Cigarette/Vaping Use: Never Used service: No Current occupational status: disabled Cognitive needs: No Hearing needs: No Vision needs: No Questionnaire Thrive Questionnaire Date Thrive assessed: 07/24/24 I am a: Patient What is your living situation today?: I have a steady place to live Within the past 12 months, did the food you bought not last and you didn't have the money to get more?: Sometimes True Within the past 12 months, did you worry whether your food would run out before you got money to buy more?: Sometimes True Do you have trouble paying for medicines?: No Do you have trouble getting transportation to medical appointments?: No Do you have trouble paying your heating and electricity bill?: No Do you have trouble taking care of your child, family member or friend?: No Do you have trouble with day-to-day activities such as bathing, preparing meals, shopping, managing finances, etc.?: Yes Are you currently unemployed and looking for a job?: No Are you interested in more education?: I choose not to answer this question Currently or been in a relationship where the following occur: I choose not to answer THRIVE Score: 2 JULIAN-7 AMB Questionnaire JULIAN-7 Date JULIAN - 7 assessed: 04/10/24 Source: Developed by Drs. Rob Johnson, Karla Washington, Colin Garcia and colleagues, with an educational lele from [employer]. Review of Systems Const Details: Const Denies chills, Denies fatigue, Denies fever(s), Denies headache(s) and Denies weakness ENT Denies dizziness and Denies headache(s) Card Denies chest pain, Denies lightheadedness, Denies dyspnea and Denies other (Palpitations) Resp Denies cough, Denies dyspnea, Denies wheezing and Denies other ( shortness of breath) GI Denies abdominal pain, Denies melena, Denies hematochezia, Denies change in bowel habits, Denies dyspepsia and Denies nausea Denies hematuria and Denies dysuria Musc Denies abnormal gait, Denies myalgias, Denies arthralgias, Denies numbness and Denies tingling Skin/Breast Denies rash, Denies unusual bruising and Denies wounds Neuro Denies abnormal gait, Denies dizziness, Denies headache(s), Denies memory loss, Denies numbness, Denies Sensory deficit (Neuro), Denies tingling and Denies weakness Psych Denies anxiety, Denies depression, Denies memory loss Endo Denies cold intolerance, Denies fatigue, Denies heat intolerance, Denies polydipsia and Denies polyuria Aller/Immun Denies wheezing Physical exam (Primary Care) Vital Signs: Last Vital Signs Temp 98.3 F 08/23/24 10:04 Pulse 72 08/23/24 10:04 Resp 16 08/23/24 10:04 Pulse Ox 98 08/23/24 10:04 Oxygen Delivery Method Room Air 08/23/24 10:04 BMI result Body Mass Index 25.1 Tobacco/Smoking Status: Tobacco use Status Tobacco use date assessed 07/24/24 08/23/24 08:15 Patient Tobacco Use Status Never used Tobacco 08/23/24 08:15 e-Cigarette/Vaping Use Never Used 08/23/24 08:15 Thrive Assessment: Date of Thrive Assessment Date Thrive assessed 07/24/24 08/23/24 08:15 Currently or been in a relationship where the following occur: I choose not to answer Const Other: General: no acute distress and well developed Nutritional Appearance: well nourished Orientation/consciousness: patient oriented x3 HENMT Head: Yes normocephalic and Yes atraumatic Eyes General: appearance normal, both eyes and all related structures Pupils: Equal, round and reactive pupils present EOM: EOMs intact bilaterally Resp Effort & Inspection: normal respiratory effort Auscultation: clear to auscultation bilaterally Cardio Rate: regular rate Rhythm: regular rhythm Heart sounds: S1 normal heart sound present, S2 normal heart sound present, no gallops, no murmurs and no rubs GI Palpation (GI): No Abdominal aortic bruit present, Soft to palpation, nontender, No hepatosplenomegaly present and No Rebound tenderness present Auscultation: normal bowel sounds General: Yes no CVA tenderness Back/Spine/Pelvis Back: no CVA tenderness Cervical Spine: cervical ROM normal and No Cervical spine tenderness Thoracic/Lumbar Spine: thoraco-lumbar ROM normal, No pain with thoraco-lumbar ROM, No thoracic spinal tenderness and No lumbar spinal tenderness Extrem General: Yes normal to inspection, No edema and No calf tenderness Skin General: warm and dry. Normal skin color. Normal skin turgor Neuro General: patient oriented x3, gait normal and no focal neuro deficit Cranial nerves: Yes Equal, round and reactive pupils present Cognition (Neuro): normal cognition Gait exam (Neuro): Normal gait present Sensory Exam: No Sensory deficit (Neuro) Psych Appearance: grossly normal Affect: normal affect Attitude: cooperative Thought process: Normal thought process present Coding Level of Care Code Est Pt Level 3 (20186) Diagnoses Essential hypertension I10 Hypertension type: essential hypertension Gastroesophageal reflux disease, unspecified whether esophagitis present K21.9 Esophagitis presence: esophagitis presence not specified Assessment & Plan Assessment & Plan (1) HTN (hypertension): Code(s): I10 - Essential (primary) hypertension Category: Medical Qualifiers: Hypertension type: essential hypertension Qualified Code(s): I10 - Essential (primary) hypertension Plan: Resting blood pressure is 116/60, within goal of less than 130/80. Continue current treatment regimen. Follow-up in 2 months for hypertension and diabetes or sooner with symptoms or concerns. Verbalized understanding and agreed with treatment plan. (2) GERD (gastroesophageal reflux disease): Code(s): K21.9 - Gastro-esophageal reflux disease without esophagitis Category: Medical Qualifiers: Esophagitis presence: esophagitis presence not specified Qualified Code(s): K21.9 - Gastro-esophageal reflux disease without esophagitis Plan: She has been experiencing heartburn since after having a colonoscopy and endoscopy 2 weeks ago. Likely esophageal irritation from colonoscopy. May also be related to diet. Encouraged to avoid greasy or fried foods. Continue to take omeprazole as prescribed. Follow-up with worsening or new symptoms. Verbalized understanding and agreed with treatment plan.
--- OUTSIDE RECORDS SUMMARY | 2024-08-23 08:14 | XMS_ITS | Encounter Summary ---
Author Organization [employer] [facility] Address [address] [place] [address] Care Team Providers Care Art Consultant Name Role Phone Tiffanie Ding MD Primary Care Provider Un available Jade Plata MD Primary Care Provider Unavail able Shanna Álvarez MD Unavailable [phone] Marina Love MD Primary Care Provider [phone] Community, Pcp Primary Care Provider Unavailabl e Community, Pcp Primary Care Provider Unavailabl e Dejah Peoples DNP Unavailable [phone] Encounter Details Date Type Department Care Team Description 04/01/2019 [facility] Medical Records [address] [place] [id number] Abstract, Provider Social History Tobacco Use Types Packs/Day Years Used Date Smoking Tobacco: Never Smokeless Tobacco: Never Alcohol Use Standard Drinks/Week Comments No 0 (1 standard drink = 0.6 oz pur e alcohol) Sex Assigned at Date Recorded Not on file Job Start Date Occupation Industry Not on file Not on file Not on file documented as of this encounter Plan of Treatment Not on file documented as of this encounter Visit Diagnoses Not on filedocumented in this encounter Care Teams Art Consultant Relationship Specialty Start Date End Date Tiffanie Ding MD PCP - General Internal Medicine 06/17/1604/07 Jade Plata MD PCP - General Internal Medicine 04/08/19 04/04/21 Marina Love MD [address] [place] [address] [id number] PCP - General Internal Medicine 04/05/21 10/20/21 [facility], Pcp [address] [place] [address] PCP - General Internal Medicine 10/21/21 08/10/22 [facility], Pcp [address] [place] [address] PCP - General Internal Medicine 08/11/22 Shanna Álvarez MD Specialist Cardiology 02/10/21 Dejah Peoples, DILIP [address] [place] [address] Specialist Nurse Practitioner [facility] 02/28/24 documented as of this encounter
--- OUTSIDE RECORDS SUMMARY | 2024-08-23 08:14 | XMS_ITS | Encounter Summary ---
Author Organization [employer] [facility] Address [address] [place] [address] Care Team Providers Care Animal Keeper Name Role Phone Sony Milton MD Primary Care Provider Unavailcresencio e Aneudy Ness MD Primary Care Provider [phone] Tiffanie Ding MD Primary Care Provider Un available Jade Plata MD Primary Care Provider Unavail able Shanna Álvarze MD Unavailable [phone] Marina Love MD Primary Care Provider [phone] Community, Pcp Primary Care Provider Unavailabl e Community, Pcp Primary Care Provider Unavailabl e Dejah Peoples DNP Unavailable [phone] Encounter Details Date Type Department Care Team Description 06/28/2014 [facility] Medical Records [address] [place] [address] Slava Rausch MD Social History Tobacco Use Types Packs/Day Years [...] on filedocumented in this encounter Care Teams Animal Keeper Relationship Specialty Start Date End Date Sony Milton MD PCP - General Cardiovascular Disease 04/30/14 10/11/15 Aneudy Ness MD [address] [place] [address] PCP - General Internal Medicine 10/12/15 06/16/16 Tiffanie Ding MD [address] [place] [address] PCP - General Internal Medicine 06/17/16 04/07/19 Jade Plata MD [address] [place] [address] PCP - General Internal Medicine 04/08/19 04/04/21 Marina Love MD [address] [place] [address] PCP - General Internal Medicine 04/05/21 10/20/21 [facility], Pcp [address] [place], [place] [phone] PCP - General Internal Medicine 10/21/21 08/10/22 [facility], Pcp [address] [place] [address] PCP - General Internal Medicine 08/11/22 Shanna Álvarez MD [address] [place], [place] [phone] Specialist Cardiology 02/10/21 Dejah Peoples, DILIP [address] [place] [address] Specialist Nurse Practitioner Family 02/28/24 documented as of this encounter
--- OUTSIDE RECORDS SUMMARY | 2024-08-23 08:14 | XMS_ITS | Encounter Summary ---
Author Organization [employer] [facility] Address [address] [place] [address] Care Team Providers Care Endless Belt Finisher Name Role Phone Tiffanie Ding MD Primary Care Provider Un available Jade Plata MD Primary Care Provider Unavail able Shanna Álvarez MD Unavailable [phone] Marina Love MD Primary Care Provider [phone] Community, Pcp Primary Care Provider Unavailabl e Community, Pcp Primary Care Provider Unavailabl e Dejah Peoples DNP Unavailable [phone] Reason for Visit * Reason Comments E-prescribe Rx Request Encounter Details Date Type Department Care Team Description 03/23/2019 Refill Adult Medicine [address] [id number] Chad Gore PA-C [address] [place] [address] [phone] E-prescribe Rx Request Social History Tobacco Use Types Packs/Day Years Used Date Smoking Tobacco: Never Smokeless Tobacco: Never Alcohol Use Standard Drinks/Week Comments No 0 (1 standard drink = 0.6 oz pur e alcohol) Sex Assigned at Date Recorded Not on file Job Start Date Occupation Industry Not on file Not on file Not on file documented as of this encounter Miscellaneous Notes * Telephone Encounter - Camelia Valdovinos M.A. - 03/25/2019 11:44 AM EDT Lab Results Component Value Date HGBA1C 7.9 11/08/2018 MALBUR 1.1 05/25/2018 MALBCR 2.9 05/25/2018 CHOL 157 10/10/2018 LDL 74 10/10/2018 HDL 68 10/10/2018 TRIG 79 10/10/2018 GLU 151 02/01/2019 CREAT 0.82 02/01/2019 * Telephone Encounter - Ratna Thomas - 03/25/2019 11:38 AM EDT Patient would like script to be: E-PRESCRIBED/FAXED TO PHARMACY WHEN WAS THE PATIENT'S LAST APPOINTMENT IN ADULT MEDICINE? 03/18/19 WHEN WAS THE LAST TIME THE PATIENT SAW THEIR PCP? 10/23/18 Does patient have an upcoming appointment? Yes 05/06/19 (THE MEDICATION REQUESTED IS ON THE MED LIST ABOVE) All of the medications requested were on the CURRENT MEDS list Did you check the Pharmacy information above?: YES Patient wants: 30 -day supply Is this a mail order prescription request ? NO If the refill is from a FAXED refill request what is the RX # listed on the fax? N/A Patients current insurance carrier is: Payor: [employer] F[employer] / Plan: [employer] / Product Type: MEDICAID RISK documented in this encounter Plan of Treatment Not on file documented as of this encounter Visit Diagnoses Not on filedocumented in this encounter Care Teams Endless Belt Finisher Relationship Specialty Start Date End Date Tiffanie Ding MD PCP - General Internal Medicine 06/17/1604/07 Jade Plata MD PCP - General Internal Medicine 04/08/19 04/04/21 Marina Love MD [address] [place] [address] PCP - General Internal Medicine 04/05/21 10/20/21 [facility], Pcp [address] [place] [address] PCP - General Internal Medicine 10/21/21 08/10/22 [facility], Pcp [address] [place], [place] [phone] PCP - General Internal Medicine 08/11/22 Shanna Álvarez MD Specialist Cardiology 02/10/21 Dejah Peoples, DILIP [address] [place] [address] Specialist Nurse Practitioner [employer] 02/28/24 documented as of this encounter
--- OUTSIDE RECORDS SUMMARY | 2024-08-23 08:14 | XMS_ITS | Data Portability ---
Author Organization [place] [employer] [place] [place] [facility] Address [address] [place] [address] Care Team Providers Care Event Attendant Name Role Phone HIM CCA OTHER Assessment No assessment recorded. Plan of Treatment Reminders Order Date Submit Date Provider Last Modified By Organization Details Last Modified Time Details Appointments None recorded. Lab hemoglobin + hematocrit, [facility] [address] [place] [address], [phone], 4 12:08:05 BMP, serum or plasma [address], [phone], 4 12:08:06 Referral None recorded. Procedures None recorded. Surgeries None recorded. Imaging electrocard iogram 2023 024 [facility], [address] [place] [address], [phone], 4 12:08:04 Medication Orders None recorded. Patient TargetsNo targets recorded. Patient Instructions Encounter Date Encounter Id Patient Instructions Last Modified By Organization Details Last Modified Time 01/03/2024 [id number] orthostatic vitals* akrones Not available 01/03/2024 12:08:02 Reason for Referral None Reported. Results Created Date Observation Date Name Description Value Unit Range Abnormal Flag Note LastModifiedBy Organization Detail LastModifiedTime 01/03/20 24 01/03/2024 BMP, serum or plasm a CRE 0.8 Not Available Main - [address], [phone], 01/03/2024 11:53:39 01/03/20 24 01/03/2024 BMP, serum or plasm a GLU 149 Not Available Main - Ins [address], [address], 01/03/2024 11:53:39 01/03/20 24 01/03/2024 BMP, serum or plasm a K+ 4.4 Not Available Main - Ins [address], [address], 01/03/2024 11:53:39 01/03/20 24 01/03/2024 BMP, serum or plasm a Na+ 135 Not Available Main - Ins [address], [address], 01/03/2024 11:53:39 01/03/20 24 01/03/2024 hemog lobin + hemat ocrit , blood Hemoglobin 15.3 Not Available [facility] - [address], [address], 01/03/2024 11:53:33 01/03/20 24 01/03/2024 hemog lobin + hemat ocrit , blood Hematocrit 45 Not Available [facility] - [address], [address], 01/03/2024 11:53:33 01/03/20 24 01/03/2024 ramírez walter am No observ ation record ed. [email or web address], [address], 01/03/2024 12:08:03 Result Notes None recorded. Procedures Surgical History None recorded. Imaging Results Imaging Date Name Status LastModified by Organization Details LastModified Time 01/03/2024 electrocardiogram completed [address], [address], 01/03/2024 12:08:03 Procedure Notes None recorded. Medical Equipment None Reported. Allergies Allergen ID Allergen Name Allergen Category Reaction Reaction Severity Criticality Documentation Date Start Date Code Code System Note Provider Name and Address Organization Details Recorded Time 91387 acetamino phen / oxycodone medicatio n Not available Not available Not available 07/17/2024 96596 3 RxNorm Not Available [employer] - production 5 09:49:30 8874 Product containin g penicilli n (product) medicatio n Not available Not available Not available 04/16/2024 18113 8001 SNOMED Not Available [employer] - production 4 03:47:24 Medications Name Sig [...] ONCE DIRECTED BY [facility] active Not Available Not Available No [...] % 97.2 [degF] 16 /min 172.72 cm 79423.8 64 g 56 /min 150 mm[Hg] 80 mm[Hg] 130 mm[Hg] 78 mm[Hg] Not Available [employer] 4 11:54:25 Date Recorded Heart rate Body temperature Respiratory rate Oxygen saturation Oxygen saturation in Arterial blood by Pulse oximetry Systolic blood pressure Diastolic blood pressure Provider Name and Address Organization Details Last Updated DateTime 4 70 /min 96.9 [degF] 16 /min 97 % 97 % 148 mm[Hg] 81 mm[Hg] Not Available [employer] 4 11:31:00 Social History None recorded. Functional Status None recorded. Mental Status None recorded. Family History Nothing Reported. Medical History No medical history recorded. Gynecological HistoryNo gynecological history recorded. Obstetrics History GPAL:G 0 P 0 0 0 0 Past Encounters Encounter ID Performer Location Encounter Start Date Encounter Closed Date Diagnosis/Indication Diagnosis SNOMED-CT Code Diagnosis ICD10 Code Diagnosis Note [id number] Madelyn Flores MD Main - [facility] [address] [place] [address] 01/03/2024 11:38:46 01/03/2024 22:15:23 Headache 71694052 R51.9 As noted, we were called to see this patient regarding concerns of dizziness and headache. Evaluation in the field was performed by my sales officer colleague, as noted above, I provided real-time direction and supervisio n for this visit. The evaluation revealed 68 y/o woman with HTN on metoprolol , seen in the ER for palpitatio ns/weaknes s 3 days ago. She was found to have AFib HR >100 per report, given 1x diltiazem and started on apixaban. She has been taking 5 BID apixaban and endorses mild headache, responsive to tylenol, with generalize d feeling unsteady and leg cramps. She does take her BP at home and her systolic BP is usually 120-140s.S he is orthostati c with a sBP 150->130 on standing, and HR stable 56->52. Impression :Headache, orthostasi s, relative bradycardi a with chronotrop ic incompeten ce Plan:We discussed risk for stroke with apixaban, but her headache is very mild and goes away with tylenol. More likely she is having symptoms related to beta blockade and orthostati cs. Recommende d PCP and cardiology follow up for adjustment of her medication s as needed. Recommende d ER visit if her headache worsens or persists or if she has a fall. Primary care, considerad justment of beta blockade/r ate controller medication s and repeat EKG to establish stability of RBB. Can also consider holter monitor to better assess for persistenc e of AFib/abnor mal HR. Dispositio n: We discussed the diagnostic uncertaint y of home visits and the risk associated with this. In this case, the patient and I felt this to be an acceptable and reasonable amount of risk given the benefit of avoiding an ED visit. We discussed the need to seek care urgently/e mergently in the setting of any new or worsening serious symptoms, particular ly persistent or worsening headache, chest pain, falls. Health Concerns Section Related Observation LastModified by Organization Detai ls LastModified Time None Recorded Concern Status LastModified by Organization Details LastModified Time None Recorded Advance Directives Directive None Recorded Payers Encounter Date Sequence Insurance Name Policy Number Policy Daíz Covered Member ID Díaz Member ID Guarantor Name 01/03/2024 1 [facility] - DOS ON OR AFTER 2022 - DUAL ELIGIBLE - [employer] AND ONE [employer] (MEDICARE REPLACEMENT/ADV ANTAGE - HMO) Mary Miller [id number] Mary Miller Notes Date Note Type Note [...] breath. Denies bleeding or blood in stool. [employer] POC Test Results from [facility] - [facility] iSTAT Chem8+ (13:15:45) Na: 135 mEq/L K: 4.4 mEq/L Cl: 97 mEq/L iCa: 1.20 mmol/L TCO2: 31 mmol/L Glu: 149 mg/dL BUN: 14 mg/dL Crea: 0.8 mg/dL Hct: 45 % Hb: 15.3 g/dL A .................. .................. .................. .................. .................. .................. .................. ............... [employer] Note From Moy Garcia: Smartcare visit for [...] no other findings. 12 lead sent to [facility]. Consulted with Dr. Flores who ordered BMP. Blood drawn and BMP completed and sent for review. Pt encouraged to follow up with PCP about possible titration of metoprolol and red flags reviewed for worsening headache. Patient education provided. .................. .................. .................. .................. .................. .................. .................. ............... Disposition: Fulfilled Madelyn Flores MD [address] [facility],[address] [facility], [place], [address], [employer] 01/03/2024 13:30:49 OBGyn Episode No OBEpisode recorded.
--- OUTSIDE RECORDS SUMMARY | 2024-08-23 08:15 | XMS_ITS | Encounter Summary ---
Author Organization [facility] Address [address] [place] [address] Care Team Providers Care Crayon Molding Machine Operator Name Role Phone Cedric Friedman Primary Care Provider [phone] Reason for Referral * Imaging (Routine) - Closed Specialty Diagnoses / Procedures Referred By Terri posadas Referred To Contact Radiology Diagnoses Category 3 mammography result with short follow-up interval suggested for probably benign finding Procedures [facility] Mammo Digital Diagnostic w Cedric Claros FNP [address] [place] [address] Phone: tel: fax: [address] [address] Phone: tel: Referral ID Status Reason Start Date Expiration Date Visits Re quested Visits Authorized [id number] Closed 04/06/2024 04/06/2025 1 1 Reason for Visit * Imaging (Routine) - Closed Specialty Diagnoses / Procedures Referred By Terri posadas Referred To Contact Radiology Diagnoses Category 3 mammography result with short follow-up interval suggested for probably benign finding Procedures [facility] Mammo Digital Diagnostic w Cedric Claros FNP [address] [place] [address] Phone: tel: fax: [address] [address] Phone: tel: Referral ID Status Reason Start Date Expiration Date Visits Re quested Visits Authorized [id number] Closed 04/06/2024 04/06/2025 1 1 Encounter Details Date Type Department Care Team (Latest Contact Info) Description 07/25/2024 12:53 PM EST - 07/25/2024 11:59 PM EST Hospital [facility] [address] [address] Category 3 mammography result with short follow-up interval suggested for probably benign finding Discharge Disposition: Home or Self Care Social History Tobacco Use Types Packs/Day Years Used Date Smoking Tobacco: Never Smokeless Tobacco: Never Alcohol Use Standard Drinks/Week Comments No 0 (1 standard drink = 0.6 oz pur e alcohol) Comments No Sex and Gender Information Value Date Recorded Sex Assigned at Female 07/12/2024 9:02 AM EST Legal Sex Female 3:14 PM EST Gender Identity Female 07/12/2024 9:02 AM EST Sexual Orientation Not on file documented as of this encounter Last Filed Vital Signs Vital Sign Reading Time Taken Comments Blood Pressure - - Pulse - - Temperature - - Respiratory Rate - - Oxygen Saturation - - Inhaled Oxygen Concentration - - Weight 74.4 kg (164 lb) 07/25/2024 1:10 PM EST Height 172.7 cm (5' 8 ) 07/25/2024 1:10 PM EST Body Mass Index 24.94 07/25/2024 1:10 PM EST documented in this encounter Medications at Time of Discharge albuterol HFA (PROAIR HFA ; PROVENTIL HFA ; VENTOLIN HFA) 90 mcg/actuation inhaler Inhale 2 Puffs into the lungs every 6 hours as needed for Cough, Wheezing or Shortness of Breath. 09/13/2021 apixaban (ELIQUIS) 5 mg tablet Take 1 Tablet by mouth 2 times daily. ascorbic acid (VITAMIN C) 500 mg chewable tablet TAKE 1 TABLET BY MOUTH DAILY. TAKE WITH IRON 10/15/2021 aspirin 81 mg chewable tablet aspirin 81 MG tablet Take 81 mg by mouth daily. blood sugar diagnostic (FreeStyle Lite Strips) test strip Use to test twice daily 09/13/2021 cholecalciferol (VITAMIN D-3) 25 mcg (1,000 unit) capsule Take 1 capsule by mouth daily. 05/06/2021 CYANOCOBALAMIN, VITAMIN B-12, ORAL B-12 Microlozenge 500 MCG SL Tab Take 1 tablet by mouth daily. 04/26/2021 famotidine (PEPCID) 20 mg tablet Take 1 tablet by mouth at bedtime. 05/31/2021 ferrous sulfate 325 mg (65 mg elemental iron) tablet TAKE 1 TABLET BY MOUTH EVERY DAY 10/23/2023 fluticasone propionate (FLONASE) 50 mcg/actuation nasal spray 2 Sprays by Nasal route daily. 09/13/2021 FREESTYLE LANCETS MISC Use to test blood sugar 2 times daily 09/13/2021 insulin glargine-lixisen atide (Soliqua 100/33) 100 unit-33 mcg/mL injection pen Inject 13 Units into the skin 2 times daily. 09/13/2020 metFORMIN XR (GLUCOPHAGE-XR) 500 mg 24 hr tablet TAKE 2 TABLETS BY MOUTH TWICE A DAY 09/20/2021 metoprolol tartrate (LOPRESSOR) 25 mg tablet TAKE 1 TABLET BY MOUTH TWICE A DAY 09/20/2021 pantoprazole (PROTONIX) 40 mg EC tablet Take 1 Tablet by mouth daily. 09/13/2021 documented as of this encounter Discharge Disposition Disposition Code Departure Means Destination Home or Self Care documented in this encounter Plan of Treatment Upcoming Encounters Date Type Department Care Team (Late st Contact Info) Description 08/26/2024 7:30 AM EDT Appointment [facility] Ultrasound [address] [place] [address] 08/26/2024 8:30 AM EDT Appointment [facility] [address] [address] documented as of this encounter Procedures Procedure Name Priority Date/Time Associated Diagnosis Comments MG MAMMO DIGITAL DIAGNOSTIC W MOSES BILAT Routine 07/25/2024 2:10 PM EST Category 3 mammography result with short follow-up interval suggested for probably benign finding documented in this encounter Results * (ABNORMAL) MG Mammo Digital Diagnostic w Moses bilat (07/25/2024 2:10 PM EST) Anatomical Region Laterality Modality Breast Bilateral Mammography 07/25/2024 2:29 PM EST Impressions 07/25/2024 2:54 PM EST 1. Focal asymmetry in the right breast without ultrasound correlate. Stereotactic biopsy is recommended. 2. 7 mm ill-defined mass in the left breast. Ultrasound-guided biopsy is recommended. BI-RADS CATEGORY: Mammography: 4 - SUSPICIOUS Ultrasound: 4 - SUSPICIOUS RECOMMENDATIONS: Core biopsy of bilateral breasts recommended. Mammo Location: [facility], [address] [place] [address], [id number], . -------- FINAL REPORT -------- Dictated By: Marina May Dictated Date: 07/25/2024 14:29 ET Assigned Physician: Marina May Reviewed and Electronically Signed By: Marina May Signed Date: 07/25/2024 14:54 ET Workstation ID: [id number] Transcribed By: Self Edit Transcribed Date: 07/25/2024 14:34 ET Narrative 07/25/2024 2:54 PM EST CLINICAL: 69 years old, Female, routine annual exam. ??Follow-up bilateral asymmetries. COMPARISON: 01/12/2024, 07/11/2023, 07/03/2023, 05/05/2022 and 08/04/2020 ?? FINDINGS: MAMMOGRAPHY TECHNIQUE: Bilateral MLO and CC views were obtained digitally with 3-D mammogram (digital breast tomosynthesis). Computer-aided detection was utilized in evaluation of this exam (CAD). Right breast: The focal asymmetry in the right upper outer quadrant at posterior depth has slightly increased in size and now has a more masslike appearance measuring up to 8 mm. Targeted ultrasound is recommended. Left breast: The focal asymmetry in the upper inner quadrant at posterior depth has slightly increased now measuring 7 mm. Targeted ultrasound is recommended. BREAST DENSITY: A - The breasts are almost entirely fatty. ULTRASOUND TECHNIQUE: Ultrasound survey evaluation of the right and left breast was performed. Right breast: Targeted ultrasound of the right upper outer quadrant was performed. No correlate to area of concern in the right breast. No suspicious mass or cyst. Left breast: Targeted ultrasound of the left breast at 11:00 13 cm from the nipple demonstrates a ill-defined mass measuring up to 7 x 5 x 4 mm. This correlates with the mammographic finding. Procedure Note Marina May MD - 07/25/2024 CLINICAL: 69 years old, Female, routine annual exam. Follow-up bilateralasymmetries. COMPARISON: 01/12/2024, 07/11/2023, 07/03/2023, 05/05/2022 and 08/04/2020 FINDINGS: MAMMOGRAPHY TECHNIQUE: Bilateral MLO and CC views were obtained digitally with 3-Dmammogram (digital breast tomosynthesis). Computer-aided detection wasutilized in evaluation of this exam (CAD). Right breast: The focal asymmetry in the right upper outer quadrant at posterior depthhas slightly increased in size and now has a more masslike appearancemeasuring up to 8 mm. Targeted ultrasound is recommended. Left breast: The focal asymmetry in the upper inner quadrant at posteriordepth has slightly increased now measuring 7 mm. Targeted ultrasound isrecommended. BREAST DENSITY: A - The breasts are almost entirely fatty. ULTRASOUND TECHNIQUE: Ultrasound survey evaluation of the right and left breast wasperformed. Right breast: Targeted ultrasound of the right upper outer quadrant was performed. Nocorrelate to area of concern in the right breast. No suspicious mass orcyst. Left breast: Targeted ultrasound of the left breast at 11:00 13 cm from the nippledemonstrates a ill-defined mass measuring up to 7 x 5 x 4 mm. Thiscorrelates with the mammographic finding. IMPRESSION: 1. Focal asymmetry in the right breast without ultrasound correlate.Stereotactic biopsy is recommended. 2. 7 mm ill-defined mass in the left breast. Ultrasound-guided biopsy isrecommended. BI-RADS CATEGORY: Mammography: 4 - SUSPICIOUS Ultrasound: 4 - SUSPICIOUS RECOMMENDATIONS: Core biopsy of bilateral breasts recommended. Mammo Location: [facility], [address] [place] [address], [id number], . -------- FINAL REPORT -------- Dictated By: Marina May Dictated Date: 07/25/2024 14:29 ET Assigned Physician: Marina May Reviewed and Electronically Signed By: Marina May Signed Date: 07/25/2024 14:54 ET Workstation ID: [id number] Transcribed By: Self Edit Transcribed Date: 07/25/2024 14:34 ET Cedric DURAN IMG BI PROCEDURES Final Result documented in this encounter Visit Diagnoses Diagnosis Category 3 mammography result with short follow-up interval suggested for probably benign finding documented in this encounter Care Teams Crayon Molding Machine Operator Relationship Specialty Start Date End Date Cedric Friedman FNP [address] [place] [id number] PCP - General Family Medicine 07/25/24 documented as of this encounter
--- OUTSIDE RECORDS SUMMARY | 2024-08-23 08:15 | XMS_ITS | Encounter Summary ---
Author Organization [employer] [facility] Address [address] [place] [address] Care Team Providers Care Webmethods Consultant Name Role Phone Shanna Álvarez MD Unavailable [phone] Community, Pcp Primary Care Provider Dejah Elliott DNP Unavailable [phone] Encounter Details Date Type Department Care Team Description 01/04/2024 Hospital Medical Records [address] [place] [address] [facility] Social History Tobacco Use Types Packs/Day Years [...] on file documented as of this encounter Procedures Procedure Name Priority Date/Time Associated Diagnosis Comments OUTSIDE EKG Routine 01/04/2024 OUTSIDE PLAIN FILM Routine 01/04/2024 OUTSIDE LAB Routine 01/04/2024 documented in this encounter Results * OUTSIDE PLAIN FILM (01/04/2024) Provider Abstract RADIOLOGY * OUTSIDE LAB (01/04/2024) Provider Abstract LAB * OUTSIDE EKG (01/04/2024) Provider Abstract CARDIOLOGY documented in this encounter Visit Diagnoses Not on filedocumented in this encounter Care Teams Webmethods Consultant Relationship Specialty Start Date End Date Community, Pcp PCP - General Internal Medicine 08/11/22 Shanna Álvarez MD Specialist Cardiology 02/10/21 Dejah Peoples DNP Specialist Nurse Practitioner Family 02/28/24 documented as of this encounter
--- OUTSIDE RECORDS SUMMARY | 2024-08-23 08:15 | XMS_ITS | Encounter Summary ---
Author Organization [employer] [facility] Address [address] [place] [address] Care Team Providers Care Travel Service Consultant Name Role Phone Shanna Álvarez MD Unavailable [phone] Marina Love MD Primary Care Provider Community, Pcp Primary Care Provider Unavailabl e [facility], [facility]cp [facility] Dejah Peoples DNP Unavailable [phone] Reason for Visit * Reason Comments E-prescribe Rx Request Encounter Details Date Type Department Care Team Description 09/20/2021 Refill Gastroenterology - [place] [address] [address] PA-C 175 [facility] [address] [place] [address] E-prescribe Rx Request Social History Tobacco Use Types Packs/Day Years Used Date Smoking Tobacco: Never Smokeless Tobacco: Never Alcohol Use Standard Drinks/Week Comments No 0 (1 standard drink = 0.6 oz pur e alcohol) Sex Assigned at Date Recorded Not on file Job Start Date Occupation Industry Not on file Not on file Not on file COVID-19 Exposure Response Date Recorded In the last 10 days, have yo u been in contact with someone who was confirmed or suspected to have Coronavirus/COVID-19? No / Unsure 09/13/2021 12:47 PM EDT documented as of this encounter Plan of Treatment Not on file documented as of this encounter Visit Diagnoses Not on filedocumented in this encounter Care Teams Travel Service Consultant Relationship Specialty Start Date End Date Marina Love MD [address] [place] [id number] PCP - General Internal Medicine 04/05/21 10/20/21 [facility], Pcp [address] [place] [id number] PCP - General Internal Medicine 10/21/21 08/10/22 [facility], Pcp [address] [place], [place] [phone] PCP - General Internal Medicine 08/11/22 Shanna Álvarez MD Specialist Cardiology 02/10/21 Dejah Peoples, DILIP [address] [place] [id number] Specialist Nurse Practitioner Family 02/28/24 documented as of this encounter
--- OUTSIDE RECORDS SUMMARY | 2024-08-23 08:15 | XMS_ITS | Encounter Summary ---
Author Organization [facility] Address [address] [place] [address] Care Team Providers Care Destination Imagination Coordinator Name Role Phone Tiffanie Ding MD Primary Care Provider Un available Jade Plata MD Primary Care Provider Unavail able Shanna Álvarez MD Unavailable [phone] Marina Love MD Primary Care Provider [phone] [facility], Pcp Primary Care Provider Unavailabl e Community, Pcp Primary Care Provider Unavailabl e Dejah Peoples DNP Unavailable [phone] Encounter Details Date Type Department Care Team Description 08/02/2018 [facility] Medical Records [address] [place] [address] Social History Tobacco Use Types Packs/Day Years [...] on filedocumented in this encounter Care Teams Destination Imagination Coordinator Relationship Specialty Start Date End Date Tiffanie Ding MD PCP - General Internal Medicine 06/17/1604/07 Jade Plata MD PCP - General Internal Medicine 04/08/19 04/04/21 Marina Love MD [address] [place] [address] [phone] PCP - General Internal Medicine 04/05/21 10/20/21 [facility]cp [address] [place] [address] PCP - General Internal Medicine 10/21/21 08/10/22 [facility] Pcp [address] [place] [address] 98944 PCP - General Internal Medicine 08/11/22 Shanna Álvarez MD Specialist Cardiology 02/10/21 Dejah Peoples, DILIP [address] [place] [address] Specialist Nurse Practitioner [facility] 02/28/24 documented as of this encounter
--- OUTSIDE RECORDS SUMMARY | 2024-08-23 08:15 | XMS_ITS | Encounter Summary ---
Author Organization [facility] Address [address] [place] [address] Care Team Providers Care Derrick Engineer Name Role Phone Jade Plata MD Primary Care Provider Unavail able Shanna Álvarez MD Unavailable [phone] Marina Love MD Primary Care Provider [phone] [facility], Pcp Primary Care Provider Unavailabl e [facility], Pcp Primary Care Provider UnavailDejah Jacobs DNP Unavailable [phone] Encounter Details Date Type Department Care Team Description 01/07/2021 Hospital Medical Records [address] [place] [address] Karis Christie NP Social History Tobacco Use Types Packs/Day Years [...] on filedocumented in this encounter Care Teams Derrick Engineer Relationship Specialty Start Date End Date Jade Plata MD PCP - General Internal Medicine 04/08/19 04/04/21 Marina Love MD [address] [place] [address] [phone] PCP - General Internal Medicine 04/05/21 10/20/21 [facility], Pcp [address] [place] [address] 60[address] PCP - General Internal Medicine 10/21/21 08/10/22 [facility], Pcp [address] [place] [address] 60649 PCP - General Internal Medicine 08/11/22 Shanna Álvarez MD Specialist Cardiology 02/10/21 Dejah Peoples, DILIP [address] [place] [address] [id number] Specialist Nurse Practitioner Family 02/28/24 documented as of this encounter
--- OUTSIDE RECORDS SUMMARY | 2024-08-23 08:15 | XMS_ITS | Encounter Summary ---
Author Organization [facility] Address [address] [place] [address] Care Team Providers Care Concessionist Name Role Phone Shanna Álvarez MD Unavailable [phone] Marina Love MD Primary Care Provider [phone] Community, Pcp Primary Care Provider Unavailabl [facility], Pcp Primary Care Provider Unavailnavos health e Dejah Peoples DNP Unavailable [phone] Encounter Details Date Type Department Care Team Description 09/14/2021 Telephone Gastroenterology - [place] [address] [facility] [address] [place] [address] PA-C 175 [facility] [address] [place] [address] Social History Tobacco Use Types Packs/Day Years [...] PM EDT documented as of this encounter Miscellaneous Notes * Telephone Encounter - Wendy Hernandez - 09/14/2021 3:14 PM EDT Spoke to the patient and gave stool study results. Patient does not have any questions or concerns at this time. * Telephone Encounter - Dequan Lane PA-C - 09/14/2021 12:11 PM EDT Please let patient know that the stool studies have been received and they are negative x3-no bloodin her stool. documented in this encounter Plan of Treatment Not on file documented as of this encounter Visit Diagnoses Not on filedocumented in this encounter Care Teams Concessionist Relationship Specialty Start Date End Date Marina Love MD [address] [place] [address] PCP - General Internal Medicine 04/05/21 10/20/21 [facility], Pcp [address] [place] [address] PCP - General Internal Medicine 10/21/21 08/10/22 [facility], Pcp [address] [place] [address] 36364 PCP - General Internal Medicine 08/11/22 Shanna Álvarez MD Specialist Cardiology 02/10/21 Dejah Peoples DNP [address] [place] [address]19 Specialist Nurse Practitioner Family 02/28/24 documented as of this encounter
--- OUTSIDE RECORDS SUMMARY | 2024-08-23 08:15 | XMS_ITS | Encounter Summary ---
Author Organization [facility] Address [address] [place] [address] Care Team Providers Care Brine Well Operator Name Role Phone Cedric Friedman Primary Care Provider [phone] Reason for Referral * Imaging (Routine) - Closed Specialty Diagnoses / Procedures Referred By Terri posadas Referred To Contact Radiology Diagnoses Category 3 mammography result with short follow-up interval suggested for probably benign finding Procedures US Breast Limited Cedric Baires FNP [address] [place] [address] Phone: tel: fax: [facility] Referral ID Status Reason Start Date Expiration Date Visits Re quested Visits Authorized [id number] Closed 07/25/2024 07/25/2025 1 1 Reason for Visit * Imaging (Routine) - Closed Specialty Diagnoses / Procedures Referred By Terri posadas Referred To Contact Radiology Diagnoses Category 3 mammography result with short follow-up interval suggested for probably benign finding Procedures US Breast Limited Cedric Baires FNP [address] [place] [address] Phone: tel: fax: [facility] Referral ID Status Reason Start Date Expiration Date Visits Re quested Visits Authorized [id number] Closed 07/25/2024 07/25/2025 1 1 Encounter Details Date Type Department Care Team (Latest Contact Info) Description 07/25/2024 1:17 PM EST - 07/25/2024 11:59 PM EST Hospital Encounter [facility] Ultrasound [address] [place] [address] Category 3 mammography result with short [...] on file documented as of this encounter Medications at Time of Discharge [...] Upcoming Encounters Date Type Department Care Team ([facility] st Contact Info) Description 08/26/2024 7:30 AM EDT Appointment [facility] Ultrasound [address] [place] [phone] 08/26/2024 8:30 AM EDT [facility]ointment [facility] [address] [phone] documented as of this encounter Procedures Procedure Name Priority Date/Time Associated Diagnosis Comments US BREAST LIMITED BILAT Routine 07/25/2024 2:02 PM EST Category 3 mammography result with short follow-up interval suggested for probably benign finding documented in this encounter Results * (ABNORMAL) US Breast Limited bilat (07/25/2024 2:02 PM EST) Anatomical Region Laterality Modality Breast Bilateral Ultrasound 07/25/2024 2:29 PM EST Impressions 07/25/2024 2:54 PM EST 1. Focal asymmetry in the right breast without ultrasound correlate. Stereotactic biopsy is recommended. 2. 7 mm ill-defined mass in the left breast. Ultrasound-guided biopsy is recommended. BI-RADS CATEGORY: Mammography: 4 - SUSPICIOUS Ultrasound: 4 - SUSPICIOUS RECOMMENDATIONS: Core biopsy of bilateral breasts recommended. Mammo Location: [facility], [address] [place] [address], [address], . -------- FINAL REPORT -------- Dictated By: Marina May Dictated Date: 07/25/2024 14:29 ET Assigned Physician: Marina May Reviewed and Electronically Signed By: Marina May Signed Date: 07/25/2024 14:54 ET Workstation ID: [id number] Transcribed By: Self Edit Transcribed Date: 07/25/2024 [...] recommended. Mammo Location: [facility], [address] [place] [address], [address], . -------- FINAL REPORT -------- Dictated By: Marina May Dictated Date: 07/25/2024 14:29 ET Assigned Physician: Marina May Reviewed and Electronically Signed By: Marina May Signed Date: 07/25/2024 14:54 ET Workstation ID: [id number] Transcribed By: Self Edit Transcribed Date: 07/25/2024 14:34 ET us Cedric DURAN IMG US PROCEDURES Final Result documented in this encounter Visit Diagnoses Diagnosis Category 3 mammography result with short follow-up interval suggested for probably benign finding documented in this encounter Care Teams Brine Well Operator Relationship Specialty Start Date End Date Cedric Friedman FNP [address] [place] [phone] PCP - General Family Medicine 07/25/24 documented as of this encounter
--- OUTSIDE RECORDS SUMMARY | 2024-08-23 08:15 | XMS_ITS | Encounter Summary ---
Author Organization [facility] Address [address] [place] [address] Care Team Providers Care Coat Hanger Shaper Machine Operator Name Role Phone Aneudy Ness MD Primary Care Provider [phone] Tiffanie Ding MD Primary Care Provider Un available Jade Plata MD Primary Care Provider Unavail able Shanna Álvarez MD Unavailable [phone] Marina Love MD Primary Care Provider [phone] Community, Pcp Primary Care Provider Unavailabl e Community, Pcp Primary Care Provider Unavailabl e Dejah Peoples DNP Unavailable [phone] Encounter Details Date Type Department Care Team Description 12/04/2015 Release of Information Medical Records [address] [place] [address] Abstract, Provider Social History Tobacco Use Types Packs/Day Years Used Date Smoking Tobacco: Never Alcohol Use Standard Drinks/Week Comments [...] on filedocumented in this encounter Care Teams Coat Hanger Shaper Machine Operator Relationship Specialty Start Date End Date Aneudy Ness MD [address] [place] [address] PCP - General Internal Medicine 10/12/15 06/16/16 Tiffanie Ding MD [address] [place] [address] PCP - General Internal Medicine 06/17/16 04/07/19 Jade Plata MD [address] [place] [address] PCP - General Internal Medicine 04/08/19 04/04/21 Marina Love MD [address] [place] [address] PCP - General Internal Medicine 04/05/21 10/20/21 [facility], Pcp [address] [place] [address] PCP - General Internal Medicine 10/21/21 08/10/22 [facility], Pcp [address] [place] [address] PCP - General Internal Medicine 08/11/22 Shanna Álvarez MD [address] [place] [address] Specialist Cardiology 02/10/21 Dejah Peoples DNP [address] [place] [address] Specialist Nurse Practitioner Family 02/28/24 documented as of this encounter
--- OUTSIDE RECORDS SUMMARY | 2024-08-23 08:15 | XMS_ITS | Encounter Summary ---
Author Organization [facility] Address [address] [place] [address] Care Team Providers Care Online Content Editor Name Role Phone Jade Plata MD Primary Care Provider Unavail able Shanna Álvarez MD Unavailable [phone] Marina Love MD Primary Care Provider [phone] Community, Pcp Primary Care Provider Unavailabl e [facility], Pcp Primary Care Provider Unavailabl e Dejah Peoples DNP Unavailable [phone] Encounter Details Date Type Department Care Team Description 01/07/2021 [facility] Medical Records [address] [place] [address] Social History Tobacco Use Types Packs/Day Years [...] Date/Time Associated Diagnosis Comments OUTSIDE EKG Routine 01/07/2021 OUTSIDE PLAIN FILM Routine 01/07/2021 OUTSIDE LAB Routine 01/07/2021 documented in this encounter Results * OUTSIDE PLAIN FILM (01/07/2021) Provider Abstract RADIOLOGY * OUTSIDE LAB (01/07/2021) Provider Abstract LAB * OUTSIDE EKG (01/07/2021) Provider Abstract CARDIOLOGY documented in this encounter Visit Diagnoses Not on filedocumented in this encounter Care Teams Online Content Editor Relationship Specialty Start Date End Date Jade Plata MD PCP - General Internal Medicine 04/08/19 04/04/21 Marina Love MD [address] [place] [address] PCP - General Internal Medicine 04/05/21 10/20/21 [facility], Pcp [address] [place] [address] PCP - General Internal Medicine 10/21/21 08/10/22 [facility], Pcp [address] [place] [address] PCP - General Internal Medicine 08/11/22 Shanna Álvarez MD Specialist Cardiology 02/10/21 Dejah Peoples, DILIP [address] [place] [address] Specialist Nurse Practitioner Family 02/28/24 documented as of this encounter
--- OUTSIDE RECORDS SUMMARY | 2024-08-23 08:15 | XMS_ITS | Encounter Summary ---
Author Organization [facility] Address [address] [place] [address] Care Team Providers Care Hazardous Substances Engineer Name Role Phone Shanna Álvarez MD Unavailable [phone] [facility], Pcp Primary Care Provider UnavailDejah Jacobs DNP Unavailable [phone] Reason for Visit * Reason Comments E-prescribe Rx Request Encounter Details Date Type Department Care Team Description 10/23/2023 Refill Gastroenterology - [place] [facility] [address] [place] [id number] PA-C [address] [facility] [address] [place] [address] E-prescribe Rx Request Social History Tobacco Use [...] encounter Miscellaneous Notes * Telephone Encounter - Lindy Rubin - 10/23/2023 10:03 AM EDT LUIS A- 09/02/21 NOV- none documented in this encounter Plan of Treatment Not on file documented as of this encounter Visit Diagnoses Not on filedocumented in this encounter Care Teams Hazardous Substances Engineer Relationship Specialty Start Date End Date Community, Pcp PCP - General Internal Medicine 08/11/22 Shanna Álvarez MD Specialist Cardiology 02/10/21 Dejah Peoples DNP Specialist Nurse Practitioner Family 02/28/24 documented as of this encounter
--- OUTSIDE RECORDS SUMMARY | 2024-08-23 08:15 | XMS_ITS | Encounter Summary ---
Author Organization [facility] Address [address] [place] [address] Care Team Providers Care Track Broom Operator Name Role Phone Tiffanie Ding MD Primary Care Provider Un available Jade Plata MD Primary Care Provider Unavail able Shanna Álvarez MD Unavailable [phone] Marina Love MD Primary Care Provider [phone] Community, Pcp Primary Care Provider Unavailabl e Community, Pcp Primary Care Provider Unavailabl e Dejah Peoples DNP Unavailable [phone] Encounter Details Date Type Department Care Team Description 08/15/2018 Orders Only Medical Records [address] [place] [address] Felicia Reaves MD Social History Tobacco Use Types Packs/Day [...] Name Priority Date/Time Associated Diagnosis Comments OUTSIDE LAB Routine 08/15/2018 documented in this encounter Results * OUTSIDE LAB (08/15/2018) Felicia Reaves MD LAB documented in this encounter Visit Diagnoses Not on filedocumented in this encounter Care Teams Track Broom Operator Relationship Specialty Start Date End Date Tiffanie Ding MD PCP - General Internal Medicine 06/17/1604/07 Jade Plata MD PCP - General Internal Medicine 04/08/19 04/04/21 Marina Love MD [address] [place] [address] PCP - General Internal Medicine 04/05/21 10/20/21 [facility], Pcp [address] [place] [address] PCP - General Internal Medicine 10/21/21 08/10/22 [facility], Pcp [address] [place] [address] PCP - General Internal Medicine 08/11/22 Shanna Álvarez MD Specialist Cardiology 02/10/21 Dejah Peoples DNP [address] [place] [address] Specialist Nurse Practitioner [facility] 02/28/24 documented as of this encounter
--- OUTSIDE RECORDS SUMMARY | 2024-08-23 08:15 | XMS_ITS | Encounter Summary ---
Author Organization [employer] [facility] Address [address] [place] [address] Care Team Providers Care Sales Representative Malt Liquors Name Role Phone Sony Milton MD Primary Care Provider Unavailabl e Aneudy Ness MD Primary Care Provider [phone] Tiffanie Ding MD Primary Care Provider Un available Jade Plata MD Primary Care Provider Unavail able Shanna Álvarez MD Unavailable [phone] Marina Love MD Primary Care Provider [phone] Community, Pcp Primary Care Provider Unavailabl e Community, Pcp Primary Care Provider Unavailabl e Dejah Peoples DNP Unavailable [phone] Encounter Details Date Type Department Care Team Description 06/30/2014 Hospital Medical Records [address] [place] [address] Bill Simon MD Social History Tobacco Use Types Packs/Day [...] Name Priority Date/Time Associated Diagnosis Comments OUTSIDE ECHO Routine 06/30/2014 documented in this encounter Results * OUTSIDE ECHO (06/30/2014) Provider Abstract CARDIOLOGY documented in this encounter Visit Diagnoses Not on filedocumented in this encounter Care Teams Sales Representative [employer] Relationship Specialty Start Date End Date Sony Milton MD PCP - General Cardiovascular Disease 04/30/14 10/11/15 Aneudy Ness MD [address] [place] [address] PCP - General Internal Medicine 10/12/15 06/16/16 Tiffanie Ding MD [address] [place], [place] [phone] PCP - General Internal Medicine 06/17/16 04/07/19 Jade Plata MD [address] [place] [address] PCP - General Internal Medicine 04/08/19 04/04/21 Marina Love MD [address] [place] [address] PCP - General Internal Medicine 04/05/21 10/20/21 [facility], Pcp [address] [place], [place] [phone] PCP - General Internal Medicine 10/21/21 08/10/22 [facility], Pcp [address] [place], [place] [phone] PCP - General Internal Medicine 08/11/22 Shanna Álvarez MD [address] [place], [place] [phone] Specialist Cardiology 02/10/21 Dejah Peoples DNP [address] [place] [address] Specialist Nurse Practitioner Family 02/28/24 documented as of this encounter
--- OUTSIDE RECORDS SUMMARY | 2024-08-23 08:15 | XMS_ITS | Encounter Summary ---
Author Organization [employer] Address [address] [place] [address] Care Team Providers Care Terminal Operations Manager Name Role Phone Cedric Friedman ROGER Primary Care Provider [phone] Reason for Visit * Reason Onset Date Comments No Show 08/02/2024 Encounter Details Date Type Department Care Team (Late st Contact Info) Description 08/02/2024 Telephone [facility] [address] [facility] [address] [place] [phone] Dejah Peoples, ZACK [address] [facility] [address] [place] [address] No Show Social History Tobacco Use Types Packs/Day Years [...] on file documented as of this encounter Progress Notes * Maddie Castaneda MA - 08/02/2024 8:52 AM EST Letter sent with information on no showed appointment and no show policy documented in this encounter Plan of Treatment Upcoming Encounters Date Type Department Care Team (Late st Contact Info) Description 08/26/2024 7:30 AM EDT Appointment [facility] Ultrasound [address] [place] [phone] 08/26/2024 8:30 AM EDT Appointment [facility] [address] [place] [address] documented as of this encounter Visit Diagnoses Not on filedocumented in this encounter Care Teams Terminal Operations Manager Relationship Specialty Start Date End Date Cedric Friedman FNP [address] [place] [address] PCP - General Family Medicine 07/25/24 documented as of this encounter
--- OUTSIDE RECORDS SUMMARY | 2024-08-23 08:15 | XMS_ITS | Encounter Summary ---
Author Organization [facility] [facility] Address [address] [place] [address] Care Team Providers Care Line Supply Name Role Phone Tiffanie Ding MD Primary Care Provider Un available Jade Plata MD Primary Care Provider Unavail able Shanna Álvarez MD Unavailable [phone] Marina Love MD Primary Care Provider [phone] Community, Pcp Primary Care Provider Unavailabl e Community, Pcp Primary Care Provider Unavailabl e Dejah Peoples DNP Unavailable [phone] Reason for Visit * Reason Comments E-prescribe Rx Request Encounter Details Date Type Department Care Team Description 11/18/2018 Refill Adult Medicine [address] [address] Tiffanie Ding MD E-prescribe Rx Request Social History Tobacco Use [...] encounter Miscellaneous Notes * Telephone Encounter - Chad Gore PA-C - 11/19/2018 3:22 PM EDT Ok to fill. Princess Preciado * Telephone Encounter - Jennifer Roche M.A. - 11/19/2018 2:33 PM EDT Lab Results Component Value Date NA 136 07/17/2018 K 4.2 07/17/2018 CO2 30 07/17/2018 CL 99 07/17/2018 BUN 10 07/17/2018 CREAT 0.73 07/27/2018 GLU 118 07/17/2018 CA 8.8 07/17/2018 GFR > 60 07/27/2018 Last ov 10/23/18 * Telephone Encounter - Erica Reyes - 11/19/2018 10:48 AM EDT Patient would like script to be: E-PRESCRIBED/FAXED TO PHARMACY WHEN WAS THE PATIENT'S LAST APPOINTMENT IN ADULT MEDICINE? 10/23/18 WHEN WAS THE LAST TIME THE PATIENT SAW THEIR PCP? Same as above Does patient have an upcoming appointment? Yes 01/23/19 (THE MEDICATION REQUESTED IS ON THE MED [...] N/A Patients current insurance carrier is: Payor: [employer] / Plan: [employer] / Product Type: MEDICAID RISK documented in this encounter Plan of Treatment Not on file documented as of this encounter Visit Diagnoses Not on filedocumented in this encounter Care Teams Line Supply Relationship Specialty Start Date End Date Tiffanie Ding MD PCP - General Internal Medicine 06/17/1604/07 Jade Plata MD PCP - General Internal Medicine 04/08/19 04/04/21 Mairna Love MD [address] [place] [address] PCP - General Internal Medicine 04/05/21 10/20/21 [facility], Pcp [address] [place], [place] [phone] PCP - General Internal Medicine 10/21/21 08/10/22 [facility], Pcp [address] [place] [address] PCP - General Internal Medicine 08/11/22 Shanna Álvarez MD Specialist Cardiology 02/10/21 Dejah Peoples DNP [address] [place] [address] Specialist Nurse Practitioner Family 02/28/24 documented as of this encounter
--- OUTSIDE RECORDS SUMMARY | 2024-08-23 08:15 | XMS_ITS | Encounter Summary ---
Author Organization [employer] [facility] Address [address] [place] [address] Care Team Providers Care Slip Filler Name Role Phone Sony Milton MD Primary Care Provider Unavailabl e Aneudy Ness MD Primary Care Provider [phone] Tiffanie Ding MD Primary Care Provider Un available Jade Plata MD Primary Care Provider Unavail able Shanna Álvarez MD Unavailable [phone] Marina Love MD Primary Care Provider Community, Pcp Primary Care Provider Unavailabl e Community, Pcp Primary Care Provider Unavailabl e Dejah Peoples DNP Unavailable [phone] Encounter Details Date Type Department Care Team Description 10/31/2012 SCAN Medical Records [address] [place] [address] Abstract, Provider Social History Tobacco Use Types Packs/Day Years Used Date Smoking Tobacco: Never Assessed Sex Assigned at Date Recorded Not on file Job Start Date Occupation Industry Not on file Not on file Not on file documented as of this encounter Plan of Treatment Not on file documented as of this encounter Procedures Procedure Name Priority Date/Time Associated Diagnosis Comments OUTSIDE LAB Routine 10/31/2012 documented in this encounter Results * OUTSIDE LAB (10/31/2012) Provider Abstract LAB documented in this encounter Visit Diagnoses Not on filedocumented in this encounter Care Teams Slip Filler Relationship Specialty Start Date End Date Sony Milton MD PCP - General Cardiovascular Disease 04/30/14 10/11/15 Aneudy Ness MD [address] [place] [address] PCP - General Internal Medicine 10/12/15 06/16/16 Tiffanie Ding MD [address] [place] [address] PCP - General Internal Medicine 06/17/16 04/07/19 Jade Plata MD [address] [place] [address] PCP - General Internal Medicine 04/08/19 04/04/21 Marina Love MD [address] [place] [address] PCP - General Internal Medicine 04/05/21 10/20/21 [facility], Pcp [address] [place] [address] PCP - General Internal Medicine 10/21/21 08/10/22 [facility], Pcp [address] [place], [place] [phone] PCP - General Internal Medicine 08/11/22 Shanna Álvarez MD [address] [place] [address] Specialist Cardiology 02/10/21 Dejah Peoples, DILIP [address] [place] [address] Specialist Nurse Practitioner Family 02/28/24 documented as of this encounter
--- OUTSIDE RECORDS SUMMARY | 2024-08-23 08:15 | XMS_ITS | Encounter Summary ---
Author Organization [employer] [facility] Address [address] [place] [address] Care Team Providers Care Remedy Developer Name Role Phone Sony Milton MD Primary Care Provider Unavailabl e Aneudy Ness MD Primary Care Provider [phone] Tiffanie Ding MD Primary Care Provider Un available Jade Plata MD Primary Care Provider Unavail able Shanna Álvarez MD Unavailable [phone] Marina Love MD Primary Care Provider [phone] Community, Pcp Primary Care Provider Unavailabl e Community, Pcp Primary Care Provider Unavailabl e Dejah Peoples DNP Unavailable Encounter Details Date Type Department Care Team Description 02/05/2009 SCAN Medical Records [address] [place] [address] Abstract, Provider Social History Tobacco Use Types Packs/Day Years Used Date Smoking Tobacco: Never Assessed Sex Assigned at Date Recorded Not on file Job Start Date Occupation Industry Not on file Not on file Not on file documented as of this encounter Plan of Treatment Not on file documented as of this encounter Procedures Procedure Name Priority Date/Time Associated Diagnosis Comments OUTSIDE NUCLEAR STRESS TEST Routine 02/05/2009 OUTSIDE NUCLEAR STRESS TEST Routine 02/05/2009 documented in this encounter Results * OUTSIDE NUCLEAR STRESS TEST (02/05/2009) Provider Abstract CARDIOLOGY * OUTSIDE NUCLEAR STRESS TEST (02/05/2009) Provider Abstract CARDIOLOGY documented in this encounter Visit Diagnoses Not on filedocumented in this encounter Care Teams Remedy Developer Relationship Specialty Start Date End Date Sony Milton MD PCP - General Cardiovascular Disease 04/30/14 10/11/15 Aneudy Ness MD [address] [place] [address] PCP - General Internal Medicine 10/12/15 06/16/16 Tiffanie Ding MD [address] [place] [address] PCP - General Internal Medicine 06/17/16 04/07/19 Jade Plata MD [address] [place] [address] PCP - General Internal Medicine 04/08/19 04/04/21 Marina Love MD [address] [place] [address] PCP - General Internal Medicine 04/05/21 10/20/21 [facility], Pcp [address] [place], [place] [phone] PCP - General Internal Medicine 10/21/21 08/10/22 [facility], Pcp [address] [place] [address] PCP - General Internal Medicine 08/11/22 Shanna Álvarez MD [address] [place] [address] Specialist Cardiology 02/10/21 Dejah Peoples DNP [address] [place] [address] Specialist Nurse Practitioner Family 02/28/24 documented as of this encounter
--- OUTSIDE RECORDS SUMMARY | 2024-08-23 08:15 | XMS_ITS | Encounter Summary ---
Author Organization [employer] [facility] Address [address] [place] [address] Care Team Providers Care Drag Down Name Role Phone Tiffanie Ding MD Primary Care Provider Un available Jade Plata MD Primary Care Provider Unavail able Shanna Álvarez MD Unavailable [phone] Marina Love MD Primary Care Provider [phone] Community, Pcp Primary Care Provider Unavailabl e Community, Pcp Primary Care Provider Unavailabl e Dejah Peoples DNP Unavailable [phone] Reason for Visit * Reason Onset Date Comments medication problems 11/13/2018 Encounter Details Date Type Department Care Team Description 11/13/2018 Telephone Adult Medicine [address] [id number] Tiffanie Ding MD medication problems Social History Tobacco Use Types Packs/Day Years [...] encounter Miscellaneous Notes * Telephone Encounter - Mily Cartwright M.A. - 11/14/2018 12:48 PM EDT [facility] approved from 11/14/2018-11/13/2020 Auth number [id number] Pharmacy notified * Telephone Encounter - Mily Cartwright M.A. - 11/13/2018 4:37 PM EDT Prior auth done by form to [facility] Dx type 2 diabetes Tried and failed glyburide and januvia Pt is currently on metformin and glipizide * Telephone Encounter - Teri Cisse - 11/13/2018 1:41 PM EDT Who is calling? Fax received from [facility] [phone] Name of the medication Dulaglutide (TRULICITY) 0.75 MG/0.5ML Solution Pen-injector What is the specific problem or interaction? Prior auth needed, ins want documentation If the patient is having a problem with taking the med - how long has the problem been going on? N/A documented in this encounter Plan of Treatment Not on file documented as of this encounter Visit Diagnoses Not on filedocumented in this encounter Care Teams Drag Down Relationship Specialty Start Date End Date Tiffanie Ding MD PCP - General Internal Medicine 06/17/1604/07 Jade Plata MD PCP - General Internal Medicine 04/08/19 04/04/21 Marina Love MD [address] [place] [address] PCP - General Internal Medicine 04/05/21 10/20/21 [facility], Pcp [address] [place] [address] PCP - General Internal Medicine 10/21/21 08/10/22 [facility], Pcp [address] [place] [address] PCP - General Internal Medicine 08/11/22 Shanna Álvarez MD Specialist Cardiology 02/10/21 Dejah Peoples DNP [address] [place] [address] Specialist Nurse Practitioner Family 02/28/24 documented as of this encounter
--- OUTSIDE RECORDS SUMMARY | 2024-08-23 08:15 | XMS_ITS | Encounter Summary ---
Author Organization [employer] [facility] Address [address] [place] [address] Care Team Providers Care Hand Buffer Name Role Phone Shanna Álvarez MD Unavailable [phone] Community, Pcp Primary Care Provider Dejah Elliott DNP Unavailable [phone] Encounter Details Date Type Department Care Team Description 01/02/2024 Hospital Medical Records [address] [place] [address] [facility] Social History Tobacco Use Types Packs/Day Years [...] Date/Time Associated Diagnosis Comments OUTSIDE EKG Routine 01/02/2024 OUTSIDE PLAIN FILM Routine 01/02/2024 OUTSIDE LAB Routine 01/02/2024 documented in this encounter Results * OUTSIDE PLAIN FILM (01/02/2024) Provider Abstract RADIOLOGY * OUTSIDE LAB (01/02/2024) Provider Abstract LAB * OUTSIDE EKG (01/02/2024) Provider Abstract CARDIOLOGY documented in this encounter Visit Diagnoses Not on filedocumented in this encounter Care Teams Hand Buffer Relationship Specialty Start Date End Date Community, Pcp PCP - General Internal Medicine 08/11/22 Shanna Álvarez MD Specialist Cardiology 02/10/21 Dejah Peoples DNP Specialist Nurse Practitioner Family 02/28/24 documented as of this encounter
--- OUTSIDE RECORDS SUMMARY | 2024-08-23 08:15 | XMS_ITS | Encounter Summary ---
Author Organization [facility] Address [address] [place] [address] Care Team Providers Care Front Window Cashier Name Role Phone Tiffanie Ding MD Primary Care Provider Un available Jade Plata MD Primary Care Provider Unavail able Shanna Álvarez MD Unavailable [phone] Marina Love MD Primary Care Provider [phone] Community, Pcp Primary Care Provider Unavailabl e Community, Pcp Primary Care Provider Unavailabl e Dejah Peoples DNP Unavailable [phone] Encounter Details Date Type Department Care Team Description 07/25/2018 Orders Only Radiology - [address] [address] Tiffanie Ding MD Diabetes mellitus without complication (HCC) (Primary Dx) Social History Tobacco Use Types Packs/Day Years [...] on file documented as of this encounter Results * CREATININE, BLOOD ASSAY (07/27/2018 8:33 AM EST) CREAT 0.73 0.5 - 1.1 mg/dL 07/27/2018 10:24 AM EST [facility] GLOMERULAR FILTRATION RATE > 60 07/27/2018 10:24 AM EST [facility] Comment: If patient is -[place], multiply result by 1.21 Chronic Kidney Disease: < 60 ml/min/1.73 square meters Kidney Failure: < 15 ml/min/1.73 square meters 07/27/2018 8:33 AM EST 07/27/2018 8:34 AM EST Tiffanie Ding MD LAB [facility] documented in this encounter Visit Diagnoses Diagnosis Diabetes mellitus without complication (HCC)- Primary Type II or unspecified type diabetes mellitus without mention of complication, not stated as uncontrolled documented in this encounter Care Teams Front Window Cashier Relationship Specialty Start Date End Date Tiffanie Ding MD PCP - General Internal Medicine 06/17/1604/07 Jade Plata MD PCP - General Internal Medicine 04/08/19 04/04/21 Marina Love MD [address] [place] [address] PCP - General Internal Medicine 04/05/21 10/20/21 [facility], Pcp [address] [place] [address] PCP - General Internal Medicine 10/21/21 08/10/22 [facility], Pcp [address] [place] [address] PCP - General Internal Medicine 08/11/22 Shanna Álvarez MD Specialist Cardiology 02/10/21 Dejah Peoples DNP [address] [place] [address] Specialist Nurse Practitioner Family 02/28/24 documented as of this encounter
--- OUTSIDE RECORDS SUMMARY | 2024-08-23 08:16 | XMS_ITS | Encounter Summary ---
Author Organization [employer] [facility] Address [address] [place] [address] Care Team Providers Care Sea Captain Name Role Phone Jade Plata MD Primary Care Provider Unavail able Shanna Álvarez MD Unavailable [phone] Marina Love MD Primary Care Provider [phone] [facility], Pcp Primary Care Provider Unavailabl [facility], Pcp Primary Care Provider UnavailDejah Jacobs DNP Unavailable [phone] Encounter Details Date Type Department Care Team Description 08/11/2020 Old Medical Records Medical Records [address] [place] [id number] Abstract, Provider Social History Tobacco Use Types [...] on filedocumented in this encounter Care Teams Sea Captain Relationship Specialty Start Date End Date Jade Plata MD PCP - General Internal Medicine 04/08/19 04/04/21 Marina Love MD [address] [place] [address] [phone] PCP - General Internal Medicine 04/05/21 10/20/21 [facility], Pcp [address] [place] [address] PCP - General Internal Medicine 10/21/21 08/10/22 [facility], Pcp [address] [place] [address] PCP - General Internal Medicine 08/11/22 Shanna Álvarez MD Specialist Cardiology 02/10/21 Dejah Peoples DNP [address] [place] [address] [phone] Specialist Nurse Practitioner Family 02/28/24 documented as of this encounter
--- OUTSIDE RECORDS SUMMARY | 2024-08-23 08:16 | XMS_ITS | Clinical Summary ---
Author Organization [employer] Address [address] [facility] 7t [place] [address] Care Team Providers Care Student Ministry Pastor Name Role Phone Unavailable Primary Care Provider Unavailabl e Allergies Active Allergy Reactions Criticality Noted Date Comments Acetaminophen Hives 05/19/2017 Atorvastatin 03/09/2016 Reaction not mentioned Codeine 03/09/2016 Reaction not mentioned Insulin Degludec-Liraglutide Itching 024 Kiwi Extract 03/09/2016 Reaction not mentioned Morphine 03/09/2016 No allergy Oxycodone Hives 05/19/2017 Oxycodone-Acetaminophen 04/05/2023 Penicillins 01/30/2013 Medications Lantus SoloStar 100 UNIT/ML pen INJECT 20 UNITS SUBCUTANEOUS INJECTION DAILY 3 Active metFORMIN XR (Glucophage-XR) 500 MG 24 hr tablet TAKE 2 TABLETS BY MOUTH TWICE A DAY X30 DAYS 3 Active Januvia 50 MG tablet Take 50 mg by mouth in the morning. 3 Active losartan (Cozaar) 100 MG tablet Take 100 mg by mouth in the morning. 3 Active metoprolol tartrate (Lopressor) 25 MG tablet Take 25 mg by mouth 2 times daily. 3 Active amLODIPine (Norvasc) 5 MG tablet Take 5 mg by mouth in the morning. 3 Active omeprazole (PriLOSEC) [address] capsule Take 20 mg by mouth in the morning. 3 Active Aspirin Low Dose 81 MG EC tablet Take 81 mg by mouth in the morning. 3 Active cholecalciferol (Vitamin D-3) 25 MCG (1000 UT) capsule Take 25 mcg by mouth in the morning. 2 Active cyanocobalamin (Vitamin B-12) 500 MCG tablet 500 MCG SUBLINGUALLY DAILY FOR 30 DAYS 3 Active ascorbic acid (Vitamin C) 500 MG chewable tablet Chew 500 mg. 2 Active fluticasone (Flonase) 50 MCG/ACT nasal spray Administer 2 sprays into affected nostril(s) in the morning. 2 Active Social History Tobacco Use Types Packs/Day Years Used Date Smoking Tobacco: Never Smokeless Tobacco: Never Tobacco Cessation:Counseling Given: Not Answered Comments Unknown Sex and Gender Information Value Date Recorded Sex Assigned at Female 04/18/2022 10:17 AM EDT Legal Sex Female 10:17 AM EDT Gender Identity Female 04/18/2022 10:17 AM EDT Sexual Orientation Straight 05/25/2023 10 :58 AM EST Last Filed Vital Signs Vital Sign Reading Time Taken Comments Blood Pressure 142/79 04/05/2023 9:14 AM EDT Pulse 60 04/05/2023 9:14 AM EDT Temperature - - Respiratory Rate - - Oxygen Saturation - - Inhaled Oxygen Concentration - - Weight - - Height - - Body Mass Index - - Plan of Treatment Upcoming Encounters Date Type Department Care Team (Late st Contact Info) Description 10/01/2024 3:00 PM EDT Office Visit [facility] [address] [place] [address] Megan Kaur [address] [place], [place] [phone] Health Maintenance Due Date Last Done Comments CT Colonography 1956 Colonoscopy 1956 Colorectal Cancer Screening 1956 Depression Screening 1956 FIT DNA/Cologuard 1956 FIT 1956 FOBT 1956 Lipid Panel 1956 SDOH Screening 1956 Sigmoidoscopy 1956 Alcohol/Substance Use Screening 1968 Hepatitis C Screening 01/18/1974 Mammogram 1996 Zoster Vaccines (1 of 2) 01/18/2006 RSV Patients and Patients Aged 60 years or older (1 - Risk 60-74 years 1-dose series) 2016 Dental X-Ray: Full Mouth 01/05/2020 01/03/2017 Dental Oral Exam 10/06/2023 04/05/2023, 03/2019, 06/26/2018, Additional history exists Dental Prophylaxis 10/06/2023 04/05/2023, 1 06/29/2018, 05/19/2017, Additional history exists COVID-19 Vaccine ( season) 2024 03/21/2023, 07/06/2021, 09/22/2020 Dental X-Ray: Bitewings 04/06/2024 04/05/20 23, 06/26/2018, 01/03/2017, Additional history exists Tobacco Screening 08/08/2024 08/08/2023 DTaP/Tdap/Td Vaccines (2 - Td or Tdap) 08/12/2024 08/12/2014 Pneumococcal Vaccine: 50+ Years (3 of 3 - PCV20 or PCV21) 07/08/2026 07/08/2021, 03/18/2015 Influenza Vaccine Completed 07/19/2024, , 05/02/2022, Additional history exists HIB Vaccines Aged Out No longer eligi ble based on patient's age to complete this topic HPV Vaccines Aged Out No longer eligi ble based on patient's age to complete this topic Hepatitis A Vaccines Aged Out No long er eligible based on patient's age to complete this topic Hepatitis B Vaccines Aged Out No long er eligible based on patient's age to complete this topic IPV Vaccines Aged Out No longer eligi ble based on patient's age to complete this topic Meningococcal Vaccine Aged Out No peterson janki eligible based on patient's age to complete this topic RSV under 20 months Aged Out No longe r eligible based on patient's age to complete this topic Rotavirus Vaccines Aged Out No longer eligible based on patient's age to complete this topic Procedures Procedure Name Priority Date/Time Associated Diagnosis Comments PROPHYLAXIS - ADULT Routine 04/05/2023 9 :00 AM EDT BITEWINGS - 4 RADIOGRAPHIC IMAGES Routine 04/05/2023 9:00 AM EDT PERIODIC ORAL EVALUATION - ESTABLISHED PATIENT Routine 04/05/2023 9:00 AM EDT INTRAORAL - COMPLETE SERIES OF RADIOGRAPHIC IMAGES Routine 01/03/2017 12:00 AM EDT from Last 3 Months or Most Recently Relevant to Health Maintenance Insurance DENTAL [facility] * Guarantor: Mary Miller Account Type Relation to Patient Date of Phone Billing Address Personal/Family Self [address]
--- OUTSIDE RECORDS SUMMARY | 2024-08-23 08:16 | XMS_ITS | Encounter Summary ---
Author Organization [employer] Address [address] [facility] 7t [place] [address] Care Team Providers Care Behavioral Health Clinician Name Role Phone Unavailable Primary Care Provider Unavailabl e Encounter Details Date Type Department Care Team (Latest Contact Info) Description 04/29/2019 Abstract [facility]VERSION[facility] Dental, Provider, DDS Social History Tobacco Use Types Packs/Day Years Used Date Smoking Tobacco: Never Assessed Comments Unknown Sex and Gender Information Value Date Recorded Sex Assigned at Female 04/18/2022 10:17 AM EDT Legal Sex Female 10:17 AM EDT Gender Identity Female 04/18/2022 10:17 AM EDT Sexual Orientation Straight 05/25/2023 10 :58 AM EST documented as of this encounter Plan of Treatment Upcoming Encounters Date Type Department Care Team (Late st Contact Info) Description 10/01/2024 3:00 PM EDT Office Visit [facility] [address] [place], [place] [phone] Megan Kaur [address] [place], [place] [phone] documented as of this encounter Visit Diagnoses Not on filedocumented in this encounter
--- OUTSIDE RECORDS SUMMARY | 2024-08-23 08:16 | XMS_ITS | Encounter Summary ---
Author Organization [employer] [facility] Address [address] [place] [address] Care Team Providers Care Trucker Name Role Phone Jade Plata MD Primary Care Provider Unavail able Shanna Álvarez MD Unavailable [phone] Marina Love MD Primary Care Provider [phone] Community, Pcp Primary Care Provider Unavailabl e [facility], Pcp Primary Care Provider Unavailabl e Dejah Peoples DNP Unavailable [phone] Encounter Details Date Type Department Care Team Description 09/08/2020 Oven Operator Automatic Report Medical Records [address] [place] [address] Nellie Aranda [address] [place] [address] Social History Tobacco Use Types Packs/Day Years [...] on filedocumented in this encounter Care Teams Trucker Relationship Specialty Start Date End Date Jade Plata MD PCP - General Internal Medicine 04/08/19 04/04/21 Marina Love MD [address] [place] [address] PCP - General Internal Medicine 04/05/21 10/20/21 [facility], Pcp [address] [place] [address] PCP - General Internal Medicine 10/21/21 08/10/22 [facility], Pcp [address] [place] [address] PCP - General Internal Medicine 08/11/22 Shanna Álvarez MD Specialist Cardiology 02/10/21 Dejah Peoples, DILIP [address] [place] [address] Specialist Nurse Practitioner Family 02/28/24 documented as of this encounter
--- OUTSIDE RECORDS SUMMARY | 2024-08-23 08:16 | XMS_ITS | Encounter Summary ---
Author Organization [facility] Address [address] [place] [address] Care Team Providers Care Gas Cutter Name Role Phone Shanna Álvarez MD Unavailable [phone] Marina Love MD Primary Care Provider [phone] Community, Pcp [facility] Dejah Peoples DNP Unavailable [phone] Encounter Details Date Type Department Care Team Description 09/03/2021 Telephone Gastroenterology - [place] [address] [facility] [address] [place] [address] PA-C [address] [facility] [address] [place] [address] Social History Tobacco Use Types Packs/Day Years Used Date Smoking Tobacco: Never Smokeless Tobacco: Never Alcohol Use Standard Drinks/Week Comments No 0 (1 standard drink = 0.6 oz pur e alcohol) Sex Assigned at Date Recorded Not on file Job Start Date Occupation Industry Not on file Not on file Not on file COVID-19 Exposure Response Date Recorded In the last month, have you been in contact with someone who was confirmed or suspected to have Coronavirus / COVID-19? No / Unsure 09/02/2021 10:39 AM EDT documented as of this encounter Miscellaneous Notes * Telephone Encounter - Dequan Lane PA-C - 09/03/2021 11:33 AM EDT Patient is noted to have low iron and iron saturation and is agreeable to take iron. We will send aprescription for iron and vitamin C to local pharmacy[facility] [place] [facility] * Telephone Encounter - Wendy Hernandez - 09/03/2021 9:56 AM EDT Patient would like a script for iron sent to the pharmacy. * Telephone Encounter - Dequan Lane PA-C - 09/03/2021 9:07 AM EDT Have received additional lab in regards to iron and iron saturation. It is noted that patient's iron saturation level is slightly low and she would benefit by taking iron daily. Please let me know ifshe would like to have a prescription for iron. documented in this encounter Plan of Treatment Not on file documented as of this encounter Visit Diagnoses Not on filedocumented in this encounter Care Teams Gas Cutter Relationship Specialty Start Date End Date Marina Love MD [address] [place] [address] PCP - General Internal Medicine 04/05/21 10/20/21 [facility], Pcp [address] [place] [address] PCP - General Internal Medicine 10/21/21 08/10/22 [facility], Pcp [address] [place] [address] PCP - General Internal Medicine 08/11/22 Shanna Álvarez MD Specialist Cardiology 02/10/21 Dejah Peoples DNP [address] [place] [address] Specialist Nurse Practitioner Family 02/28/24 documented as of this encounter
--- OUTSIDE RECORDS SUMMARY | 2024-08-23 08:16 | XMS_ITS | Encounter Summary ---
Author Organization [employer] Address [address] [facility] 7t [place] [address] Care Team Providers Care Agricultural Education Teacher Name Role Phone Unavailable Primary Care Provider Unavailabl e Encounter Details Date Type Department Care Team (Latest Contact Info) Description 06/26/2018 Abstract [facility] CONVERSIONS Dental, Provider, DDS Social History Tobacco [...] Description 10/01/2024 3:00 PM EDT Office Visit [facility] [address] [place], [place] [phone] Megan Kaur [address] [place], [place] [phone] documented as of this encounter Visit Diagnoses Not on filedocumented in this encounter
--- OUTSIDE RECORDS SUMMARY | 2024-08-23 08:16 | XMS_ITS | Encounter Summary ---
Author Organization [employer] [facility] Address [address] [place] [address] Care Team Providers Care Criminal Justice Instructor Name Role Phone Shanna Álvarez MD Unavailable [phone] Marina Love MD Primary Care Provider [phone] [facility], Pcp Primary Care Provider [facility], Pcp Primary Care Provider Dejah Elliott DNP Unavailable [phone] Encounter Details Date Type Department Care Team Description 08/13/2021 Inside Sales Assistant Report Medical Records [address] [place] [id number] [facility] Social History Tobacco Use Types Packs/Day [...] on filedocumented in this encounter Care Teams Criminal Justice Instructor Relationship Specialty Start Date End Date Marina Love MD [address] [place] [address] [phone] PCP - General Internal Medicine 04/05/21 10/20/21 [facility], Pcp [address] [place] [address] [id number] PCP - General Internal Medicine 10/21/21 08/10/22 [facility], Pcp [address] [place] [address] [phone] PCP - General Internal Medicine 08/11/22 Shanna Álvarez MD Specialist Cardiology 02/10/21 Dejah Peoples, DILIP [address] [place] [address] 58762 Specialist Nurse Practitioner Family 02/28/24 documented as of this encounter
--- OUTSIDE RECORDS SUMMARY | 2024-08-23 08:16 | XMS_ITS | Encounter Summary ---
Author Organization [facility] Address [address] [place] [address] Care Team Providers Care Gas Fitter Helper Name Role Phone Tiffanie Ding MD Primary Care Provider Un available Jade Plata MD Primary Care Provider Unavail able Shanna Álvarez MD Unavailable [phone] Marina Love MD Primary Care Provider [phone] [facility], Pcp Primary Care Provider Unavailabl e [facility], Pcp Primary Care Provider Unavailabl e Dejah Peoples DNP Unavailable [phone] Reason for Visit * Reason Comments E-prescribe Rx Request Encounter Details Date Type Department Care Team Description 05/13/2018 Refill Adult Medicine [address] [phone] Chad Gore PA-C [address] [place] [address] [id number] E-prescribe Rx Request Social History Tobacco Use [...] encounter Miscellaneous Notes * Telephone Encounter - Mango Rios - 05/14/2018 8:04 AM EST Patient would like script to be: E-PRESCRIBED/FAXED TO PHARMACY WHEN WAS THE PATIENT'S LAST APPOINTMENT IN ADULT MEDICINE? 04/23/18 WHEN WAS THE LAST TIME THE PATIENT SAW THEIR PCP? 04/18/18 Does patient have an upcoming appointment? Yes 05/25/18 (THE MEDICATION REQUESTED IS ON THE MED LIST ABOVE) All of the medications requested were on the CURRENT MEDS list Did you check the Pharmacy information above?: YES Patient wants: 90 -day supply Is this a mail order prescription request ? NO If the refill is from a FAXED refill request what is the RX # listed on the fax? N/A Patients current insurance carrier is: Payor: [employer] / Plan: [employer] / Product Type: MEDICAID RISK documented in this encounter Plan of Treatment Not on file documented as of this encounter Visit Diagnoses Not on filedocumented in this encounter Care Teams Gas Fitter Helper Relationship Specialty Start Date End Date Tiffanie Ding MD PCP - General Internal Medicine 06/17/1604/07 Jade Plata MD PCP - General Internal Medicine 04/08/19 04/04/21 Marina Love MD [address] [place] [address] [phone] PCP - General Internal Medicine 04/05/21 10/20/21 [facility], Pcp [address] [place] [address] [phone] PCP - General Internal Medicine 10/21/21 08/10/22 [facility], Pcp [address] [place] [address] 51071 PCP - General Internal Medicine 08/11/22 Shanna Álvarez MD Specialist Cardiology 02/10/21 Dejah Peoples, DILIP [address] [place] [address] Specialist Nurse Practitioner Family 02/28/24 documented as of this encounter
--- OUTSIDE RECORDS SUMMARY | 2024-08-23 08:16 | XMS_ITS | Encounter Summary ---
Author Organization [facility] [facility] Address [address] [place] [address] Care Team Providers Care Metal Numerical Control Programmer Name Role Phone Jade Plata MD Primary Care Provider Unavail able Shanna Álvarez MD Unavailable [phone] Marina Love MD Primary Care Provider [phone] [facility], Pcp Primary Care Provider Unavailabl e [facility], [facility], Pcp Primary Care Provider Unavailabl e Dejah Peoples DNP Unavailable [phone] Encounter Details Date Type Department Care Team Description 09/13/2020 Orders Only Adult Medicine [address] [address] Jade Plata MD 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) documented in this encounter Care Teams Metal Numerical Control Programmer Relationship Specialty Start Date End Date Jade Plata MD PCP - General Internal Medicine 04/08/19 04/04/21 Marina Love MD [address] [place] [phone] PCP - General Internal Medicine 04/05/21 10/20/21 [facility], [facility], Pcp [address] [place] [address]776 PCP - General Internal Medicine 10/21/21 08/10/22 [facility], [facility], Pcp [address] [place], [place] [phone] PCP - General Internal Medicine 08/11/22 Shanna Álvarez MD Specialist Cardiology 02/10/21 Dejah Peoples, DILIP [address] [place] [address] Specialist Nurse Practitioner Family 02/28/24 documented as of this encounter
--- OUTSIDE RECORDS SUMMARY | 2024-08-23 08:16 | XMS_ITS | Encounter Summary ---
Author Organization [facility] Address [address] [place] [address] Care Team Providers Care Child Protective Investigator Name Role Phone Tiffanie Ding MD Primary Care Provider Un available Jade Plata MD Primary Care Provider Unavail able Shanna Álvarez MD Unavailable [phone] Marina Love MD Primary Care Provider [phone] [facility], Pcp Primary Care Provider Unavailabl e [facility], Pcp Primary Care Provider Unavailabl e Dejah Peoples DNP Unavailable [phone] Encounter Details Date Type Department Care Team Description 07/10/2018 Orders Only Radiology - [address] [address] Tiffanie Ding MD Diabetes mellitus without complication [...] this encounter Results * CREATININE, BLOOD ASSAY (07/10/2018 3:30 PM EST) CREAT 0.81 0.5 - 1.1 mg/dL 07/10/2018 5:17 PM EST [facility] GLOMERULAR FILTRATION RATE > 60 07/10/2018 5:17 PM EST [facility] Comment: If patient is -Micronesian, multiply result by 1.21 Chronic Kidney Disease: < 60 ml/min/1.73 square meters Kidney Failure: < 15 ml/min/1.73 square meters 07/10/2018 3:30 PM EST 07/10/2018 3:30 PM EST Tiffanie Ding MD [facility] documented in this encounter Visit Diagnoses Diagnosis Diabetes mellitus without complication (HCC)- Primary Type II or unspecified type diabetes mellitus without mention of complication, not stated as uncontrolled documented in this encounter Care Teams Child Protective Investigator Relationship Specialty Start Date End Date Tiffanie Ding MD PCP - General Internal Medicine 06/17/1604/07 Jade Plata MD PCP - General Internal Medicine 04/08/19 04/04/21 Marina Love MD [address] [place] [address] PCP - General Internal Medicine 04/05/21 10/20/21 [facility], Pcp [address] [place] [address]21 PCP - General Internal Medicine 10/21/21 08/10/22 [facility], Pcp [address] [place] [address] 31290 PCP - General Internal Medicine 08/11/22 Shanna Álvarez MD Specialist Cardiology 02/10/21 Dejah Peoples DNP [address] [place] [address] Specialist Nurse Practitioner Family 02/28/24 documented as of this encounter
--- OUTSIDE RECORDS SUMMARY | 2024-08-23 08:17 | XMS_ITS | Encounter Summary ---
Author Organization [facility] Address [address] [place] [address] Care Team Providers Care Long Lines Operator Name Role Phone Shanna Álvarez MD Unavailable [phone] Marina Love MD Primary Care Provider [facility], Pcp [facility] Dejah Peoples DNP Unavailable [phone] Reason for Visit * Reason Comments E-prescribe Rx Request Encounter Details Date Type Department Care Team Description 07/28/2021 Refill Adult Medicine [address] [address] Jade Plata MD E-prescribe Rx Request Social History Tobacco [...] have Coronavirus / COVID-19? No / Unsure 07/08/2021 9:48 AM EST documented as of this encounter Miscellaneous Notes * Telephone Encounter - Jennifer Roche M.A. - 07/28/2021 1:35 PM EST Refused too soon * Telephone Encounter - Mei Steel - 07/28/2021 1:34 PM EST Possible duplicate documented in this encounter Plan of Treatment Not on file documented as of this encounter Visit Diagnoses Not on filedocumented in this encounter Care Teams Long Lines Operator Relationship Specialty Start Date End Date Marina Love MD [address] [place] [phone] PCP - General Internal Medicine 04/05/21 10/20/21 [facility], Pcp [address] [place] [address]67 PCP - General Internal Medicine 10/21/21 08/10/22 [facility], Pcp [address] [place] [address] 90026 PCP - General Internal Medicine 08/11/22 Shanna Álvarez MD Specialist Cardiology 02/10/21 Dejah Peoples DNP [address] [place] [address] Specialist Nurse Practitioner Family 02/28/24 documented as of this encounter
--- OUTSIDE RECORDS SUMMARY | 2024-08-23 08:17 | XMS_ITS | Encounter Summary ---
Author Organization [facility] [facility] Address [address] [place] [address] Care Team Providers Care Drill Rig Operator Name Role Phone Jade Plata MD Primary Care Provider Unavail able Shanna Álvarez MD Unavailable [phone] Marina Love MD Primary Care Provider [facility], Pcp Primary Care Provider Unavailabl e [facility], Pcp Primary Care Provider UnavailDejah Jacobs DNP Unavailable [phone] Encounter Details Date Type Department Care Team Description 07/31/2019 Ceramic Mold Designer Report Medical Records [address] [place] [address] Tommy Stacy Social History Tobacco Use Types Packs/Day Years [...] on filedocumented in this encounter Care Teams Drill Rig Operator Relationship Specialty Start Date End Date Jade Plata MD PCP - General Internal Medicine 04/08/19 04/04/21 Marina Love MD [address] [place] [address] [phone] PCP - General Internal Medicine 04/05/21 10/20/21 [facility], Pcp [address] [place] [address] 10472 PCP - General Internal Medicine 10/21/21 08/10/22 [facility], Pcp [address] [place] [address] 22409 PCP - General Internal Medicine 08/11/22 Shanna Álvarez MD Specialist Cardiology 02/10/21 Dejah Peoples, DILIP [address] [place] [address] Specialist Nurse Practitioner Family 02/28/24 documented as of this encounter
--- OUTSIDE RECORDS SUMMARY | 2024-08-23 08:17 | XMS_ITS | Encounter Summary ---
Author Organization [facility] Address [address] [place] [address] Care Team Providers Care Transport Engineer Name Role Phone Jade Plata MD Primary Care Provider Unavail able Shanna Álvarez MD Unavailable [phone] Marina Love MD Primary Care Provider [phone] [facility], Pcp Primary Care Provider Unavailabl e [facility], Pcp Primary Care Provider UnavailDejah Jacobs DNP Unavailable [phone] Encounter Details Date Type Department Care Team Description 05/26/2020 [facility] Medical Records [address] [place] [address] Social History Tobacco Use Types Packs/Day Years [...] Name Priority Date/Time Associated Diagnosis Comments OUTSIDE VASCULAR STUDY Routine 05/26/2020 documented in this encounter Results * OUTSIDE VASCULAR STUDY (05/26/2020) Provider Abstract CARDIOLOGY documented in this encounter Visit Diagnoses Not on filedocumented in this encounter Care Teams Transport Engineer Relationship Specialty Start Date End Date Jade Plata MD PCP - General Internal Medicine 04/08/19 04/04/21 Marina Love MD [address] [place] [address]791 PCP - General Internal Medicine 04/05/21 10/20/21 [facility], Pcp [address] [place] [address] 46948 PCP - General Internal Medicine 10/21/21 08/10/22 [facility], Pcp [address] [place] [address] 45708 PCP - General Internal Medicine 08/11/22 Shanna Álvarez MD Specialist Cardiology 02/10/21 Dejah Peoples, DILIP [address] [place] [address] Specialist Nurse Practitioner Family 02/28/24 documented as of this encounter
--- OUTSIDE RECORDS SUMMARY | 2024-08-23 08:17 | XMS_ITS | Encounter Summary ---
Author Organization [facility] Address [address] [place] [address] Care Team Providers Care Case Operator Name Role Phone Jade Plata MD Primary Care Provider Unavail able Shanna Álvarez MD Unavailable [phone] Marina Love MD Primary Care Provider [phone] [facility], Pcp Primary Care Provider Unavailabl e [facility], Pcp Primary Care Provider UnavailDejah Jacobs DNP Unavailable [phone] Encounter Details Date Type Department Care Team Description 01/29/2020 Correctional Officer Captain Report Medical Records [address] [place] [address] Tommy Stacy Social History Tobacco Use Types [...] on filedocumented in this encounter Care Teams Case Operator Relationship Specialty Start Date End Date Jade Plata MD PCP - General Internal Medicine 04/08/19 04/04/21 Marina Love MD [address] [place] [address] [phone] PCP - General Internal Medicine 04/05/21 10/20/21 [facility], Pcp [address] [place] [address] 12149 PCP - General Internal Medicine 10/21/21 08/10/22 [facility], Pcp [address] [place] [address] 39815 PCP - General Internal Medicine 08/11/22 Shanna Álvarez MD Specialist Cardiology 02/10/21 Dejah Peoples, DILIP [address] [place] [address] Specialist Nurse Practitioner Family 02/28/24 documented as of this encounter
--- OUTSIDE RECORDS SUMMARY | 2024-08-23 08:17 | XMS_ITS | Clinical Summary ---
Author Organization [facility] Address [address] [place] [address] Phone Care Team Providers Care Audio Visual Design Engineer Name Role Phone Cedric Friedman CABLE TELEVISION TECHNICIAN Primary Care Provider [phone] Allergies Active Allergy Reactions Criticality Noted Date Comments Atorvastatin 03/09/2016 Lipitor Reaction not mentioned Cephalexin Monohydrate 03/09/2016 Keflex [Cephalexin Monohydrate-polysorbate 80] Reaction not mentioned Codeine 03/09/2016 Reaction not mentioned Kiwi (Actinidia Chinensis) 6 Kiwi Extract Reaction not mentioned Morphine 03/09/2016 No allergy Oxycodone-Acetaminophen 12/01/2015 Percocet [Apap-fd&c Red #40 Al Balderrama-oxycodone] Penicillins 12/01/2015 Medications albuterol HFA (PROAIR HFA ; PROVENTIL HFA ; VENTOLIN HFA) 90 mcg/actuation inhaler Inhale 2 Puffs into the lungs every 6 hours as needed for Cough, Wheezing or Shortness of Breath. 2 Active apixaban (ELIQUIS) 5 mg tablet Take 1 Tablet by mouth 2 times daily. Active ascorbic acid (VITAMIN C) 500 mg chewable tablet TAKE 1 TABLET BY MOUTH DAILY. TAKE WITH IRON 2 Active aspirin 81 mg chewable tablet aspirin 81 MG tablet Take 81 mg by mouth daily. Active CYANOCOBALAMIN, VITAMIN B-12, ORAL B-12 Microlozenge 500 MCG SL Tab Take 1 tablet by mouth daily. 11/08/202 1 Active cholecalciferol (VITAMIN D-3) 25 mcg (1,000 unit) capsule Take 1 capsule by mouth daily. 1 Active famotidine (PEPCID) 20 mg tablet Take 1 tablet by mouth at bedtime. 1 Active ferrous sulfate 325 mg (65 mg elemental iron) tablet TAKE 1 TABLET BY MOUTH EVERY DAY 4 Active fluticasone propionate (FLONASE) 50 mcg/actuation nasal spray 2 Sprays by Nasal route daily. 2 Active FREESTYLE LANCETS MISC Use to test blood sugar 2 times daily 2 Active blood sugar diagnostic (FreeStyle Lite Strips) test strip Use to test twice daily 2 Active metFORMIN XR (GLUCOPHAGE-XR) 500 mg 24 hr tablet TAKE 2 TABLETS BY MOUTH TWICE A DAY 2 Active metoprolol tartrate (LOPRESSOR) 25 mg tablet TAKE 1 TABLET BY MOUTH TWICE A DAY 2 Active pantoprazole (PROTONIX) 40 mg EC tablet Take 1 Tablet by mouth daily. 2 Active insulin glargine-lixise natide (Soliqua 100/33) 100 unit-33 mcg/mL injection pen Inject 13 Units into the skin 2 times daily. 1 Active Active Problems Problem Noted Date Diagnosed Date Abnormal iron saturation 06/05/2024 Low ferritin 06/05/2024 Atypical chest pain 05/19/2021 Bruit of right carotid artery 05/19/2021 Pulsatile neck mass 02/03/2020 Overview (06/05/2024): Follows with cardiovascular, they referred her to vascular and also ordered a carotid artery ultrasound they believe it is a tortuous carotid artery. 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 Repeat sigmoidoscopy 6-8 weeks Allergic rhinitis 12/02/2016 Asthma 03/09/2016 Old [place] (myocardial infarction) 03/09/2016 Overview (06/05/2024): NON STEMI 06/28/14 Echo normal / stress test 08/18/14 Follows with [facility] Type 2 diabetes mellitus with cataract 6 Overview (06/05/2024): Dx'd in 1996; Endo @ [facility] Venous insufficiency of both lower extremities 0 03/09/2016 Vitamin D deficiency 03/09/2016 Depression 12/01/2015 Essential hypertension 12/01/2015 Gastroesophageal reflux disease without esophagi tis 12/01/2015 Encounters Date Type Department Care Team Description 08/02/2024 Telephone [facility] - [address] [place] [phone] Dejah Peoples NP No Show 07/25/2024 1:17 PM EST - 07/25/2024 11:59 PM EST Hospital Encounter [facility] [address] [place] [id number] Category 3 mammography result with short follow-up interval suggested for probably benign finding Discharge Disposition: Home or Self Care 07/25/2024 12:53 PM EST - 07/25/2024 11:59 PM EST Hospital Encounter [facility] [address] [place] [phone] Category 3 mammography result with short follow-up interval suggested for probably benign finding Discharge Disposition: Home or Self Care from Last 3 Months Immunizations Name Administration Dates Next Due Influenza Quadravalent, MDCK , 0.5ml, preservative free (Flucelvax) 6mo and older 06/11/2020,04/25/2019 Influenza Quadravalent, MDCK , 0.5ml, with preservative (Flucelvax) 6mo and older 03/21/2018,02/21/2017 Influenza trivalent, 0.5mL (Fluad) 65yo and olde r 04/05/2021 Influenza trivalent, 0.5mL, preservative free (Fluarix; FluLaval; Fluzone) ages 6mo and older (Afluria) 3 years and older 03/18/2016 [employer] SARS-CoV-2 COVID -19, vector-nr, rS-Ad26, preservative free 09/22/2020 [employer] SARS-CoV-2 COVID-19, mRNA, LNP-S, preservative free 07/06/2021 Pneumococcal conjugate 13 va lent (Prevnar 13, PCV13) 2mo and older 07/08/2021 Pneumococcal polysaccharide 23 valent (Pneumovax 23) 2yo and older 03/18/2015 Tdap Tetanus diptheria acell ular pertussis (Boostrix; Adacel) 7yo and older 08/12/2014 Surgical History Surgery Date Site/Laterality Comments HYSTERECTOMY 1984 PROCEDURE: HISTORICAL HYSTERECTOMY; COMMENT: total BSO OTHER SURGICAL HISTORY 2014 PROCEDURE: ---- OTHER ----; COMMENT: EVLT and phlebectomy COLONOSCOPY 12/12/2006 PROCEDURE: HISTORICAL COLONOSCOPY; COMMENT: [email or web address]; normal screening exam, not difficult. COLONOSCOPY W/ POLYPECTOMY 12/12/2016 PROCEDURE: AK COLSC FLX W/RMVL OF TUMOR POLYP LESION SNARE TQ; COMMENT: 2cm rectal polyp - tubulovillous adenoma foci hi grade dysplasia FLEXIBLE SIGMOIDOSCOPY 01/2017 PROCEDURE: HISTORICAL FLEXIBLE SIGMOIDOSCOPY; COMMENT: negative COLONOSCOPY 08/15/2018 PROCEDURE: HISTORICAL COLONOSCOPY; COMMENT: negative Medical History Medical History Date Comments Essential hypertension 12/01/2015 DX:Essent ial hypertension Gastroesophageal reflux dise ase without esophagitis 12/01/2015 DX:Gastroesophageal reflux d isease without esophagitis Depression 12/01/2015 DX:Depression Hyperlipidemia 12/01/2015 DX:Hyperlipidemi a Exertional asthma 12/01/2015 DX:Exertional asthma Old [place] (myocardial infarction) 03/09/2016 D X:Old [place] (myocardial infarction); COMMENT: NON STEMI 06/28/14 / stress test 08/18/14 Venous insufficiency of both lower extremities 03/09/2016 DX:Venous insufficiency of b oth lower extremities; COMMENT: EVLT 2014/ Dr Mohan Benedict Type 2 diabetes mellitus wit h cataract ([facility]/HCC) 03/09/2016 DX:Type 2 diabetes mellitus with cataract (HCC); COMMENT: OU Varicose veins 03/09/2016 DX:Varicose vein s Atrial fibrillation ([facility]) 03/09/2016 DX :Atrial fibrillation (HCC) 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 age Diabetes Brother 1 epilepsy Lung cancer Father ? mets to brain Alzheimer's disease Mother Relation Name Status Comments Aunt m ? age Alive Brother 1 Brother 2 (Age 29) Father (Age 74) Mother (Age 82) Social History Tobacco Use Types Packs/Day Years [...] AM EST Sexual Orientation Not on file Obstetrics History Para Term AB IAB SAB Ectopic Multiple Livin g Live Births 3 Last Filed Vital Signs Vital Sign Reading Time Taken Comments Blood Pressure 120/78 09/13/2021 1:14 PM EDT Pulse 66 09/13/2021 1:14 PM EDT Temperature - - Respiratory Rate - - Oxygen Saturation - - Inhaled Oxygen Concentration - - Weight 74.4 kg (164 lb) 07/25/2024 1:10 PM EST Height 172.7 cm (5' 8 ) 07/25/2024 1:10 PM EST Body Mass Index 24.94 07/25/2024 1:10 PM EST Plan of Treatment Upcoming Encounters Date Type Department Care Team (Late st Contact Info) Description 08/26/2024 7:30 AM EDT Appointment [facility] [address] [place] [phone] 08/26/2024 8:30 AM EDT Appointment [facility] [address] [place] [phone] Health Maintenance Due Date Last Done Comments Diabetes: Annual Foot Exam 01/18/1966 Diabetes: Annual Retina Eye Exam 01/18/1966 Zoster Vaccines (1 of 2) 01/18/2006 RSV Immunization Patients 60+ Years Old (1 - Risk 60-74 years 1-dose series) 2016 Colorectal Cancer Screening: Stool Based Tests (FOBT/FIT) 05/28/2022 Depression Screening 05/28/2022 Falls Risk Assessment 05/28/2022 Social Influencers of Health Screening 05/28/2022 Diabetes: Annual Urine Albumin-Creatinine Ratio (uACR) 06/04/2022 03/31/2021 Diabetes: Blood Sugar Control Test (HGBA1C) 06/04/2022 09/02/2021 Diabetes: Annual GFR (Glomerular Filtration Rate) 09/02/2022 09/02/2021 Hypertension/CHF/CAD Annual BMP Blood Test 09/02/2022 09/02/2021 COVID-19 Vaccine ( - season) 2024 03/21/2023, 07/06/2021, 09/22/2020 DTaP,Tdap,and Td Vaccines (2 - Td or Tdap) 08/12/2024 08/12/2014 Cholesterol Screening (Lipid Panel) 06/21/2026 06/21/2021 Pneumococcal Vaccine: 50+ Years (3 of 3 - PCV20 or PCV21) 07/08/2026 07/08/2021, 03/18/2015 Breast Cancer Screening 07/25/2026 07/25/19, 07/03/2023, 05/05/2022, Additional history exists Osteoporosis Screening (Bone Density Screening) 10/09/2031 10/08/2021 Hepatitis C Screening Completed 12/06/2017 Influenza Vaccine Completed 07/19/2024, , 05/02/2022, Additional [...] on patient's age to complete this topic MMR Vaccines Aged Out No longer eligi ble based on patient's age to complete this topic Meningococcal ACWY Vaccine Aged Out N o longer eligible based on patient's age to complete this topic Meningococcal B Vacine Aged Out No lo nger eligible based on patient's age to complete this topic RSV Immunization Patients Under 20 months Aged Out No longer eligible based on patient's age to complete this topic Varicella Vaccines Aged Out No longer eligible based on patient's age to complete this topic Procedures Procedure Name Priority Date/Time Associated Diagnosis Comments MG MAMMO DIGITAL DIAGNOSTIC W MOSES BILAT Routine 07/25/2024 2:10 PM EST Category 3 mammography result with short follow-up interval suggested for probably benign finding US BREAST LIMITED BILAT Routine 07/25/2024 2:02 PM EST Category 3 mammography result with short follow-up interval suggested for probably benign finding DXA BONE DENSITY STUDY 1+ SITS AXIAL SKEL Routine 10/08/2021 2:09 PM EDT Asymptomatic menopausal state ANNUAL BMP BLOOD TEST Routine 09/02/2021 HEMOGLOBIN A1C Routine 09/02/2021 LIPID PANEL Routine 06/21/2021 URINE ALBUMIN CREATININE RATIO Routine 03/31/2021 HEPATITIS C SCREENING Routine 12/06/2017 from Last 3 Months or Most Recently Relevant to Health Maintenance Results * (ABNORMAL) MG Mammo Digital Diagnostic [...] Location: [facility], [address] [place] [address], [id number], . -------- FINAL REPORT -------- Dictated By: Marina May Dictated Date: 07/25/2024 14:29 ET Assigned Physician: Marina May Reviewed and Electronically Signed By: Marina May Signed Date: 07/25/2024 14:54 ET Workstation ID: [id number] Transcribed By: Self Edit Transcribed Date: 07/25/2024 [...] Location: [facility], [address] [place] [address], [id number], . -------- FINAL REPORT -------- Dictated By: Marina May Dictated Date: 07/25/2024 14:29 ET Assigned Physician: Marina May Reviewed and Electronically Signed By: Marina May Signed Date: 07/25/2024 14:54 ET Workstation ID: [id number] Transcribed By: Self Edit Transcribed Date: 07/25/2024 14:34 ET us Cedric Friedman CABLE TELEVISION TECHNICIAN IMG BI PROCEDURES Final Result * (ABNORMAL) US Breast Limited bilat (07/25/2024 [...] Location: [facility], [address] [place] [address], [id number], . -------- FINAL REPORT -------- Dictated By: Marina May Dictated Date: 07/25/2024 14:29 ET Assigned Physician: Marina May Reviewed and Electronically Signed By: Marina May Signed Date: 07/25/2024 14:54 ET Workstation ID: [id number] Transcribed By: Self Edit Transcribed Date: 07/25/2024 [...] Location: [facility], [address] [place] [address], [id number], . -------- FINAL REPORT -------- Dictated By: Marina May Dictated Date: 07/25/2024 14:29 ET Assigned Physician: Marina May Reviewed and Electronically Signed By: Marina May Signed Date: 07/25/2024 14:54 ET Workstation ID: [id number] Transcribed By: Self Edit Transcribed Date: 07/25/2024 14:34 ET us Cedric Friedman CABLE TELEVISION TECHNICIAN IMG US PROCEDURES Final Result * DXA BONE DENSITY STUDY 1+ SITS AXIAL SKEL (10/08/2021 2:09 PM EDT) Anatomical Region Laterality Modality Bone Densitometr y 07/08/2021 10:2 5 AM EST Narrative 10/08/2021 2:42 PM EDT BONE DENSITY (DEXA) ? Lumbar Spine T-score is -0.6. ?? (SD relative to 20-29 y/o adult) Z-score is 1.2. ??(SD relative to age matched peers) This is considered normal by WHO criteria. Left Hip T-score is 0.0. Z-score is 1.3. This is considered normal by WHO criteria. IMPRESSION: This patient is considered to have normal bone density by WHO criteria. The [facility] recommends using National Osteoporosis Foundation (NOF) guidelines in treatment decisions related to osteoporosis. NOF guidelines suggest considering treatment for postmenopausal women and men aged 50 or older presenting with the following: History of hip or vertebral fracture. T-score = -2.5 (DXA) at the femoral neck, total hip, or spine, after appropriate evaluation to exclude secondary causes. Low bone mass (T-score between -1.0 and -2.5 at the femoral neck or spine) AND a 10-year probability of a hip fracture = 3% OR a 10-year probability of a major osteoporosis-related fracture = 20% based on the [place]-adapted WHO algorithm Please note that all treatment decisions require clinical judgment and consideration of individual patient factors, including patient preferences, co-morbidities, previous drug use, risk factors not captured in the FRAX model (e.g., frailty, falls, vitamin D deficiency, increased bone turnover, interval significant decline in bone density) and possible under- or over-estimation of fracture risk by FRAX. Optional alternative screening schedule based on ashley Kelly., [facility] July 07, 2011 for patients with osteopenia (based on hip BMD T-score) is as follows: * ??advanced osteopenia (T scores -2.00 to -2.49), BMD testing every year * ??moderate osteopenia (T scores -1.50 to -1.99), BMD testing every 5 years mild osteopenia or normal BMD (T scores -1.50 and higher), BMD testing every 15 years Procedure Note Laura Barakat MD - 06/07/2022 BONE DENSITY (DEXA) Lumbar Spine T-score is -0.6. (SD relative to 20-29 y/o adult) Z-score is 1.2. (SD relative to age matched peers) This is considered normal by WHO criteria. Left Hip T-score is 0.0. Z-score is 1.3. This is considered normal by WHO criteria. IMPRESSION: This patient is considered to have normal bone density by WHO criteria. The [facility] recommendsusing National Osteoporosis Foundation (NOF) guidelines in treatment decisions related toosteoporosis. NOF guidelines suggest considering treatment for postmenopausal women and menaged 50 or older presenting with the following: History of hip or vertebral fracture. T-score = -2.5 (DXA) at the femoral neck, total hip, or spine, afterappropriate evaluation to exclude secondary causes. Low bone mass (T-score between -1.0 and -2.5 at the femoral neck or spine)AND a 10-year probability of a hip fracture = 3% OR a 10-year probability of a majorosteoporosis-related fracture = 20% based on the [place]-adapted WHO algorithm Please note that all treatment decisions require clinical judgment andconsideration of individual patient factors, including patient preferences, co- morbidities,previous drug use, risk factors not captured in the FRAX model (e.g., frailty, falls, vitaminD deficiency, increased bone turnover, interval significant decline in bone density) andpossible under- or over-estimation of fracture risk by FRAX. Optional alternative screening schedule based on ashley Kelly., NEJMJanuary 2011 for patients with osteopenia (based on hip BMD T-score) is as follows: * advanced osteopenia (T scores -2.00 to -2.49), BMD testing every year * moderate osteopenia (T scores -1.50 to -1.99), BMD testing every 5years mild osteopenia or normal BMD (T scores -1.50 and higher), BMD testingevery 15 years Result [facility] IMG DXA PROCEDURES Final Resu lt * Annual BMP Blood Test (09/02/2021) [facility] Annual BMP Blood Test abstracted Result [facility] Provider HEALTH MAINTENANCE Final Result * (ABNORMAL) Hemoglobin A1c (09/02/2021) [facility] Hemoglobin A1C 7.1(A) <=6.5 % Blood Venous blood specimen / Unknown Result [facility] Provider LAB BLOOD ORDERABLES Marianela l Result * Lipid panel (06/21/2021) [facility] LDL/HDL Ratio 2 0 - 4 Triglycerides 66 0 - 150 mg/dL Cholesterol 188 0 - 200 mg/dL HDL 77 >=40 mg/dL LDL Cholesterol 98 0 - 150 mg/dL Blood Venous blood specimen / Unknown Result [facility] Provider LAB BLOOD ORDERABLES Marianela l Result * Urine Albumin Creatinine Ratio (03/31/2021) [facility] Urine Albumin Creatinine Ratio abstracted Result [facility] Provider HEALTH MAINTENANCE Final Result * Hepatitis C Screening (12/06/2017) [facility] Hepatitis C Screening abstracted Result [facility] Provider HEALTH MAINTENANCE Final Result from Last 3 Months or Most Recently Relevant to Health Maintenance Insurance [facility] Member Subscriber Plan / Payer (Ef fective 2021-Present) Name:Mary Miller Relation to Subscriber:Self Name:Mary Miller Payer ID:[id number] Group ID:[id number] Type:Not on file Address: [address] [place] [address] Care Teams Audio Visual Design Engineer Relationship Specialty Start Date End Date Cedric Friedman FNP [address] [place] [address] PCP - General Family Medicine 07/25/24
--- OUTSIDE RECORDS SUMMARY | 2024-08-23 08:17 | XMS_ITS | Encounter Summary ---
Author Organization [facility] Address [address] [place] [address] Care Team Providers Care Application Release Manager Name Role Phone Jade Plata MD Primary Care Provider Unavail able Shanna Álvarez MD Unavailable [phone] Marina Love MD Primary Care Provider [phone] [facility], Pcp Primary Care Provider Unavailabl e [facility], Pcp Primary Care Provider UnavailDejah Jacobs DNP Unavailable [phone] Encounter Details Date Type Department Care Team Description 09/23/2019 Pattern Puncher Report Medical Records [address] [place] [id number] [facility] Social History Tobacco Use Types Packs/Day Years [...] on filedocumented in this encounter Care Teams Application Release Manager Relationship Specialty Start Date End Date Jade Plata MD PCP - General Internal Medicine 04/08/19 04/04/21 Marina Love MD [address] [place] [address] [phone] PCP - General Internal Medicine 04/05/21 10/20/21 [facility], Pcp [address] [place] [id number] PCP - General Internal Medicine 10/21/21 08/10/22 [facility], Pcp [address] [place] [id number] PCP - General Internal Medicine 08/11/22 Shanna Álvarez MD Specialist Cardiology 02/10/21 Dejah Peoples, DILIP [address] [place] [address] Specialist Nurse Practitioner Family 02/28/24 documented as of this encounter
--- OUTSIDE RECORDS SUMMARY | 2024-08-23 08:18 | XMS_ITS | Encounter Summary ---
Author Organization [facility] Address [address] [place] [address] Care Team Providers Care Maintenance Mechanic Elevators Name Role Phone Jade Plata MD Primary Care Provider Unavail able Shanna Álvarez MD Unavailable [phone] Marina Love MD Primary Care Provider [facility], Pcp Primary Care Provider Unavailabl e [facility], Pcp Primary Care Provider Unavailabl e Dejah Peoples DNP Unavailable [phone] Encounter Details Date Type Department Care Team Description 07/15/2019 Drum Printer Report Medical Records [address] [place] [id number] [address] [place] [address] Social History Tobacco Use Types Packs/Day Years [...] on filedocumented in this encounter Care Teams Maintenance Mechanic Elevators Relationship Specialty Start Date End Date Jade Plata MD PCP - General Internal Medicine 04/08/19 04/04/21 Marina Love MD [address] [place] [address] [phone] PCP - General Internal Medicine 04/05/21 10/20/21 [facility], Pcp [address] [place] [phone] PCP - General Internal Medicine 10/21/21 08/10/22 [facility], Pcp [address] [place] [phone] PCP - General Internal Medicine 08/11/22 Shanna Álvarez MD Specialist Cardiology 02/10/21 Dejah Peoples, DILIP [address] [place] [phone] Specialist Nurse Practitioner Family 02/28/24 documented as of this encounter
--- OUTSIDE RECORDS SUMMARY | 2024-08-23 08:18 | XMS_ITS | Encounter Summary ---
Author Organization [employer] [facility] Address [address] [place] [address] Care Team Providers Care Welding Inspector Name Role Phone Tiffanie Ding MD Primary Care Provider Un available Jade Plata MD Primary Care Provider Unavail able Shanna Álvarez MD Unavailable [phone] Marina Love MD Primary Care Provider [phone] Community, Pcp Primary Care Provider Unavailabl e Community, Pcp Primary Care Provider Unavailabl e Dejah Peoples DNP Unavailable [phone] Reason for Visit * Reason Onset Date Comments REFERRAL 07/26/2016 colonoscopy Encounter Details Date Type Department Care Team Description 07/26/2016 Telephone Gastroenterology - [address] [id number] Sandeep Daily MD REFERRAL (colonoscopy) Social History Tobacco Use Types Packs/Day Years Used Date Smoking Tobacco: Never Alcohol Use Standard Drinks/Week Comments No 0 (1 standard drink = 0.6 oz pur e alcohol) Sex Assigned at Date Recorded Not on file Job Start Date Occupation Industry Not on file Not on file Not on file documented as of this encounter Miscellaneous Notes * Telephone Encounter - Una Cedeño - 07/29/2016 2:46 PM EST Pt booked for colonoscopy in 09/05/16 * Telephone Encounter - Una Cedeño - 07/27/2016 8:45 AM EST Msg left for pt to call back to book colonoscopy, can see anyone. Pt is filipino speaking. * Telephone Encounter - Sandeep Daily MD - 07/26/2016 1:52 PM EST The patient underwent screening colonoscopy by Dr. Shahzad Fregoso on 12 December 2006 at the [facility]. Low technical difficulty procedure under moderate sedation that was negative. He recommended colonoscopy again for her in 10 years. She can be scheduled for screening colonoscopy routinely here in our office endoscopy unit. * Telephone Encounter - Una Cedeño - 07/26/2016 1:42 PM EST Pt was referred to us for a colonoscopy, pt says she had one done 10 yrs ago at [facility]. Notes were requested, put in in basket. Can you review to see if we need to book at hospital or here, thank you! documented in this encounter Plan of Treatment Not on file documented as of this encounter Visit Diagnoses Not on filedocumented in this encounter Care Teams Welding Inspector Relationship Specialty Start Date End Date Tiffanie Ding MD PCP - General Internal Medicine 06/17/1604/07 Jade Plata MD PCP - General Internal Medicine 04/08/19 04/04/21 Marina Love MD [address] [place] [address] PCP - General Internal Medicine 04/05/21 10/20/21 [facility], Pcp [address] [place] [address] PCP - General Internal Medicine 10/21/21 08/10/22 [facility], Pcp [address] [place] [address] PCP - General Internal Medicine 08/11/22 Shanna Álvarez MD Specialist Cardiology 02/10/21 Dejah Peoples DNP [address] [place] [address] Specialist Nurse Practitioner Family 02/28/24 documented as of this encounter
--- OUTSIDE RECORDS SUMMARY | 2024-08-23 08:18 | XMS_ITS | Encounter Summary ---
Author Organization [employer] [facility] Address [address] [place] [address] Care Team Providers Care Materials Coordinator Name Role Phone Jade Plata MD Primary Care Provider Unavail able Shanna Álvarez MD Unavailable [phone] Marina Love MD Primary Care Provider Community, Pcp Primary Care Provider Unavailabl e [facility], Pcp Primary Care Provider Unavailabl e Dejah Peoples [facility] Unavailable [phone] Reason for Visit * Reason Onset Date Comments Pre-visit Diabetes Lab Adult Medicine 04/22/2019 dm due on 05/06/2019 at 245 pm Encounter Details Date Type Department Care Team Description 04/22/2019 Telephone Respiratory and Diabetes Medicaid/ACO Pharmacist [address] [place] [address] Jade Plata MD Pre-visit Diabetes Lab Adult Medicine (dm due on 05/06/2019 at 245 pm ) Social History Tobacco Use Types Packs/Day Years [...] encounter Miscellaneous Notes * Telephone Encounter - Teri Cisse - 04/22/2019 9:29 AM EST Mary Miller is scheduled to see you on 05/06/2019 for diabetes follow up . I have contacted the patient and instructed them to have their labwork done 1 week prior to the appointment. Diabetes pre-visit orders have been pended. Please sign the orders then route the encounter back to sender . Do not close the encounter. If there are other orders you would like performed prior to the visit, please add them to the pended orders then sign all the orders. I would ask that any orders entered by the [facility] Medicaid staff be associated with a diabetes diagnosis. You can use any diabetes diagnosis found on the problem list. Teri Cisse Community Health Worker [facility] Plan [facility] W [phone] F [phone] documented in this encounter Plan of Treatment Not on file documented as of this encounter Results * LIPID PROFILE (08/06/2019 8:53 AM EST) Cholesterol 176 0 - 200 mg/dL 08/06/2019 1:51 PM EST [facility] TRIGLYCERIDES 60 0 - 150 mg/dL 08/06/2019 1:51 PM EST [facility] HDL CHOLESTEROL 77 >40 mg/dL 0 1:57 PM EST [facility] LDL CALCULATED 87 0 - 100 mg/dL 08/06/2019 1:57 PM EST [facility] TC-HDLC RATIO 2.3 0 - 4.4 mg/dL 08/06/2019 1:57 PM EST [facility] 08/06/2019 8:53 AM EST 08/06/2019 8:53 AM EST Vandana Shultz PA-C LAB [facility] documented in this encounter Visit Diagnoses Diagnosis 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 documented in this encounter Care Teams Materials Coordinator Relationship Specialty Start Date End Date Jade Plata MD PCP - General Internal Medicine 04/08/19 04/04/21 Marina Love MD [address] [place] [address] PCP - General Internal Medicine 04/05/21 10/20/21 [facility], Pcp [address] [place] [address] PCP - General Internal Medicine 10/21/21 08/10/22 [facility], Pcp [address] [place] [address] PCP - General Internal Medicine 08/11/22 Shanna Álvarez MD Specialist Cardiology 02/10/21 Dejah Peoples, DILIP [address] [place] [address] Specialist Nurse Practitioner Family 02/28/24 documented as of this encounter
--- OUTSIDE RECORDS SUMMARY | 2024-08-23 08:18 | XMS_ITS | Encounter Summary ---
Author Organization [employer] [facility] Address [address] [place] [address] Care Team Providers Care Nursing Information Systems Coordinator Name Role Phone Tiffanie Ding MD Primary Care Provider Un available Jade Plata MD Primary Care Provider Unavail able Shanna Álvarez MD Unavailable [phone] Marina Love MD Primary Care Provider [phone] Community, Pcp Primary Care Provider Unavailabl e Community, Pcp Primary Care Provider Unavailabl e Dejah Peoples DNP Unavailable [phone] Encounter Details Date Type Department Care Team Description 12/19/2016 Telephone Gastroenterology - [address] [id number] Qi Abebe MD Social History Tobacco Use Types Packs/Day [...] on filedocumented in this encounter Care Teams Nursing Information Systems Coordinator Relationship Specialty Start Date End Date Tiffanie Ding MD PCP - General Internal Medicine 06/17/1604/07 Jade Plata MD PCP - General Internal Medicine 04/08/19 04/04/21 Marina Love MD [address] [place] [address] PCP - General Internal Medicine 04/05/21 10/20/21 [facility], Pcp [address] [place] [address] PCP - General Internal Medicine 10/21/21 08/10/22 [facility], Pcp [address] [place] [address] PCP - General Internal Medicine 08/11/22 Shanna Álvarez MD Specialist Cardiology 02/10/21 Dejah Peoples, DILIP [address] [place] [address] Specialist Nurse Practitioner Family 02/28/24 documented as of this encounter
--- OUTSIDE RECORDS SUMMARY | 2024-08-23 08:18 | XMS_ITS | Encounter Summary ---
Author Organization [employer] [facility] Address [address] [place] [address] Care Team Providers Care Live Study Manager Name Role Phone Jade Plata MD Primary Care Provider Unavail able Shanna Álvarez MD Unavailable [phone] Marina Love MD Primary Care Provider Community, Pcp Primary Care Provider Unavailabl e [facility], Pcp Primary Care Provider Unavailabl e Dejah Peoples DNP Unavailable [phone] Encounter Details Date Type Department Care Team Description 07/01/2019 [employer] Report Medical Records [address] [place] [address] Nellie Aranda [address] [place] [address] Social History Tobacco Use Types Packs/Day Years [...] on filedocumented in this encounter Care Teams Live Study Manager Relationship Specialty Start Date End Date Jade Plata MD PCP - General Internal Medicine 04/08/19 04/04/21 Marina Love MD [address] [place] [address] [id number] PCP - General Internal Medicine 04/05/21 10/20/21 [facility], Pcp [address] [place] [address] PCP - General Internal Medicine 10/21/21 08/10/22 [facility], Pcp [address] [place] [address] PCP - General Internal Medicine 08/11/22 Shanna Álvarez MD Specialist Cardiology 02/10/21 Dejah Peoples, DILIP [address] [place] [address] Specialist Nurse Practitioner Family 02/28/24 documented as of this encounter
[2024-08-23 10:04] VITALS: BP 138/64; PULSE 72; RESP 16; TEMP 36.8; O2SAT 98; BMI 25.1
[2024-08-23 10:21] VITALS: BP 116/60
--- OUTSIDE RECORDS SUMMARY | 2024-08-23 10:58 | XMS_ITS | Encounter Summary ---
Author Organization [employer] [facility] Address [address] [place] [address] Care Team Providers Care Budget Technician Name Role Phone Tiffanie Ding MD Primary Care Provider Un available Jade Plata MD Primary Care Provider Unavail able Shanna Álvarez MD Unavailable Marina Love MD Primary Care Provider [phone] Community, Pcp Primary Care Provider Unavailabl e Community, Pcp Primary Care Provider Unavailabl e Dejah Peoples DNP Unavailable [phone] Reason for Visit * Reason Comments E-prescribe Rx Request Encounter Details Date Type Department Care Team Description 01/13/2019 Refill Adult Medicine - [address] [address] Tiffanie Ding MD E-prescribe Rx Request Social [...] Telephone Encounter - Chad Gore PA-C - 01/14/2019 5:08 PM EDT Ok to fill. Princess Preciado * Telephone Encounter - Camelia Valdovinos M.A. - 01/14/2019 3:01 PM EDT Lab Results Component Value Date HGBA1C 7.9 11/08/2018 MALBUR 1.1 05/25/2018 MALBCR 2.9 05/25/2018 CHOL 157 10/10/2018 LDL 74 10/10/2018 HDL 68 10/10/2018 TRIG 79 10/10/2018 GLU 118 07/17/2018 CREAT 0.73 07/27/2018 * Telephone Encounter - Gauri Ochoa - 01/14/2019 12:15 PM EDT Patient would like script to be: [...] N/A Patients current insurance carrier is: Payor: [employer] FFS / Plan: [employer] [facility] [employer] / Product Type: MEDICAID RISK documented in this encounter Plan of Treatment Not on file documented as of this encounter Visit Diagnoses Not on filedocumented in this encounter Care Teams Budget Technician Relationship Specialty Start Date End Date Tiffanie Ding MD PCP - General Internal Medicine 06/17/1604/07 Jade Plata MD PCP - General Internal Medicine 04/08/19 04/04/21 Mraina Love MD [address] [place] [address] PCP - General Internal Medicine 04/05/21 10/20/21 [facility], Pcp [address] [place], [place] [phone] PCP - General Internal Medicine 10/21/21 08/10/22 [facility], Pcp [address] [place] [address] PCP - General Internal Medicine 08/11/22 Shanna Álvarez MD Specialist Cardiology 02/10/21 Dejah Peoples, DILIP [address] [place] [address] Specialist Nurse Practitioner [facility] 02/28/24 documented as of this encounter
--- OUTSIDE RECORDS SUMMARY | 2024-08-23 10:58 | XMS_ITS | Encounter Summary ---
Author Organization [employer] [facility] Address [address] [place] [address] Care Team Providers Care Ctrs Name Role Phone Sony Milton MD Primary Care Provider Unavailcresencio e Aneudy Ness MD Primary Care Provider [phone] Tiffanie Ding MD Primary Care Provider Un available Jade Plata MD Primary Care Provider Unavail able Shanna Álvarez MD Unavailable [phone] Marina Love MD Primary Care Provider Community, Pcp Primary Care Provider Unavailabl e Community, Pcp Primary Care Provider Unavailabl e Dejah Peoples DNP Unavailable [phone] Encounter Details Date Type Department Care Team Description 06/28/2014 Hospital Medical Records [address] [place] [address] Slava Rausch MD Social History Tobacco Use [...] on filedocumented in this encounter Care Teams Ctrs Relationship Specialty Start Date End Date Sony Milton MD PCP - General Cardiovascular Disease 04/30/14 10/11/15 Aneudy Ness MD [address] [place] [address] PCP - General Internal Medicine 10/12/15 06/16/16 Tiffanie Ding MD [address] [place] [address] PCP - General Internal Medicine 06/17/16 04/07/19 Jade Plata MD [address] [place] [address] PCP - General Internal Medicine 04/08/19 04/04/21 Marina Love MD [address] [place] [address] PCP - General Internal Medicine 04/05/21 10/20/21 [facility], Pcp [address] [place], [place] [phone] PCP - General Internal Medicine 10/21/21 08/10/22 [facility], Pcp [address] [place] [address] PCP - General Internal Medicine 08/11/22 Shanna Álvarez MD [address] [place], [place] [phone] Specialist Cardiology 02/10/21 Dejah Peoples, DILIP [address] [place] [address] Specialist Nurse Practitioner Family 02/28/24 documented as of this encounter
--- OUTSIDE RECORDS SUMMARY | 2024-08-23 10:58 | XMS_ITS | Encounter Summary ---
Author Organization [employer] [facility] Address [address] [place] [address] Care Team Providers Care Mri Ct Tech Name Role Phone Shanna Álvarez MD Unavailable [phone] Community, Pcp Primary Care Provider Unavailabl e Community, Pcp Primary Care Provider Unavailabl e Dejah Peoples DNP Unavailable Encounter Details Date Type Department Care Team Description 08/05/2022 Hospital Medical Records [address] [place] [address] [facility] Social History Tobacco Use Types Packs/Day [...] Name Priority Date/Time Associated Diagnosis Comments OUTSIDE PLAIN FILM Routine 08/06/2022 OUTSIDE LAB Routine 08/05/2022 documented in this encounter Results * OUTSIDE PLAIN FILM (08/06/2022) Provider Abstract RADIOLOGY * OUTSIDE LAB (08/05/2022) Provider Abstract LAB documented in this encounter Visit Diagnoses Not on filedocumented in this encounter Care Teams Mri Ct Tech Relationship Specialty Start Date End Date Community, Pcp PCP - General Internal Medicine 10/21/21 08/10/22 Community, Pcp PCP - General Internal Medicine 08/11/22 Shanna Álvarez MD Specialist Cardiology 02/10/21 Dejah Peoples DNP Specialist Nurse Practitioner Family 02/28/24 documented as of this encounter
--- OUTSIDE RECORDS SUMMARY | 2024-08-23 10:58 | XMS_ITS | Encounter Summary ---
Author Organization [employer] [facility] Address [address] [place] [address] Care Team Providers Care Heavy Forging Machine Operator Name Role Phone Sony Milton MD Primary Care Provider Unavailabl e Aneudy Ness MD Primary Care Provider [phone] Tiffanie Ding MD Primary Care Provider Un available Jade Plata MD Primary Care Provider Unavail able Shanna Álvarez MD Unavailable [phone] Marina Love MD Primary Care Provider [phone] Community, Pcp Primary Care Provider Unavailabl e Community, Pcp Primary Care Provider Unavailabl e Dejah Peoples DNP Unavailable [phone] Encounter Details Date Type Department Care Team Description 06/30/2014 Hospital Medical Records [address] [place] [address] Bill Simon MD Social History Tobacco Use [...] on filedocumented in this encounter Care Teams Heavy Forging Machine Operator Relationship Specialty Start Date End Date Sony Milton MD PCP - General Cardiovascular Disease 04/30/14 10/11/15 Aneudy Ness MD [address] [place] [address] PCP - General Internal Medicine 10/12/15 06/16/16 Tiffanie Ding MD [address] [place], [place] [phone] PCP - General Internal Medicine 06/17/16 04/07/19 Jade Plata MD [address] [place] [address] PCP - General Internal Medicine 04/08/19 04/04/21 Marina Love MD [address] [place] [address] PCP - General Internal Medicine 04/05/21 10/20/21 [facility], Pcp [address] [place], [place] [phone] PCP - General Internal Medicine 10/21/21 08/10/22 [facility], Pcp [address] [place], [place] [address] PCP - General Internal Medicine 08/11/22 Shanna Álvarez MD [address] [place], [place] [address] Specialist Cardiology 02/10/21 Dejah Peoples DNP [address] [place] [address] Specialist Nurse Practitioner Family 02/28/24 documented as of this encounter
--- OUTSIDE RECORDS SUMMARY | 2024-08-23 10:58 | XMS_ITS | Encounter Summary ---
Author Organization [employer] [facility] Address [address] [place] [address] Care Team Providers Care Well Control Instructor Name Role Phone Shanna Álvarez MD Unavailable [phone] Community, Pcp Primary Care Provider Unavailabl e Dejah Peoples DNP Unavailable [phone] Reason for Visit * Reason Comments E-prescribe Rx Request Encounter Details Date Type Department Care Team Description 10/10/2022 Refill Gastroenterology - [place] [facility] [address] [place] [phone] PA-C [address] [facility] [address] [place] [address] E-prescribe Rx Request Social History Tobacco Use [...] on filedocumented in this encounter Care Teams Well Control Instructor Relationship Specialty Start Date End Date Community, Pcp PCP - General Internal Medicine 08/11/22 Shanna Álvarez MD Specialist Cardiology 02/10/21 Dejah Peoples DNP Specialist Nurse Practitioner Family 02/28/24 documented as of this encounter
--- OUTSIDE RECORDS SUMMARY | 2024-08-23 10:58 | XMS_ITS | Encounter Summary ---
Author Organization [employer] [facility] Address [address] [place] [address] Care Team Providers Care Legal Writing Professor Name Role Phone Shanna Álvarez MD Unavailable [phone] [facility], Pcp Primary Care Provider UnavailDejah Jacobs DNP Unavailable [phone] Reason for Visit * Reason Comments E-prescribe Rx Request Encounter Details Date Type Department Care Team Description 10/23/2023 Refill Gastroenterology - [place] [facility] [address] [place] [phone] PA-C 175 [facility] [address] [place] [address] E-prescribe Rx Request Social History Tobacco Use [...] on filedocumented in this encounter Care Teams Legal Writing Professor Relationship Specialty Start Date End Date Community, Pcp PCP - General Internal Medicine 08/11/22 Shanna Álvarez MD Specialist Cardiology 02/10/21 Dejah Peoples DNP Specialist Nurse Practitioner Family 02/28/24 documented as of this encounter
--- OUTSIDE RECORDS SUMMARY | 2024-08-23 10:58 | XMS_ITS | Encounter Summary ---
Author Organization [employer] Address [address] [place] [address] Care Team Providers Care Surgical Scrub Tech Name Role Phone Cedric Friedman ROGER Primary Care Provider [phone] Reason for Visit * Reason Onset Date Comments No Show 08/02/2024 Encounter Details Date Type Department Care Team (Late st Contact Info) Description 08/02/2024 Telephone [facility] [address] [facility] [address] [place] [phone] Dejah Peoples, ZACK [address] [facility] [address] [place] [address] No Show Social History Tobacco Use Types [...] Info) Description 08/26/2024 7:[address] [facility] Ultrasound [address] [place] [phone] 08/26/2024 8:30 AM EDT Appointment [facility] [address] [place] [address] documented as of this encounter Visit Diagnoses Not on filedocumented in this encounter Care Teams Surgical Scrub Tech Relationship Specialty Start Date End Date Cedric Friedman FNP [address] [place] [address] PCP - General Family Medicine 07/25/24 documented as of this encounter
--- OUTSIDE RECORDS SUMMARY | 2024-08-23 10:58 | XMS_ITS | Encounter Summary ---
Author Organization [employer] [facility] Address [address] [place] [address] Care Team Providers Care Caustic Strength Inspector Name Role Phone Sony Milton MD Primary Care Provider Unavailabl e Aneudy Ness MD Primary Care Provider [phone] Tiffanie Ding MD Primary Care Provider Un available Jade Plata MD Primary Care Provider Unavail able Shanna Álvarez MD Unavailable [phone] Marina Love MD Primary Care Provider [phone] Community, Pcp Primary Care Provider Unavailabl e Community, Pcp Primary Care Provider Unavailabl e Dejah Peoples DNP Unavailable [phone] Encounter Details Date Type Department Care Team Description 02/05/2009 [facility] [address] [place] [address] Abstract, Provider Social History Tobacco Use Types [...] on filedocumented in this encounter Care Teams Caustic Strength Inspector Relationship Specialty Start Date End Date Sony Milton MD PCP - General Cardiovascular Disease 04/30/14 10/11/15 Aneudy Ness MD [address] [place] [address] PCP - General Internal Medicine 10/12/15 06/16/16 Tiffanie Ding MD [address] [place] [address] PCP - General Internal Medicine 06/17/16 04/07/19 Jade Plata MD [address] [place] [address] PCP - General Internal Medicine 04/08/19 04/04/21 Marina Love MD [address] [place] [address] PCP - General Internal Medicine 04/05/21 10/20/21 [facility], Pcp [address] [place], [place] [phone] PCP - General Internal Medicine 10/21/21 08/10/22 [facility], Pcp [address] [place] [address] PCP - General Internal Medicine 08/11/22 Shanna Álvarez MD [address] [place] [address] Specialist Cardiology 02/10/21 Dejah Peoples DNP [address] [place] [address] Specialist Nurse Practitioner Family 02/28/24 documented as of this encounter
--- OUTSIDE RECORDS SUMMARY | 2024-08-23 10:58 | XMS_ITS | Encounter Summary ---
Author Organization [facility] Address [address] [place] [address] Care Team Providers Care Insulation Board Calender Operator Name Role Phone Tiffanie Ding MD Primary Care Provider Un available Jade Plata MD Primary Care Provider Unavail able Shanna Álvarez MD Unavailable [phone] Marina Love MD Primary Care Provider [phone] Community, Pcp Primary Care Provider Unavailabl e Community, Pcp Primary Care Provider Unavailabl e Dejah Peoples DNP Unavailable [phone] Encounter Details Date Type Department Care Team Description 06/29/2018 Telephone Gastroenterology - [place] [address] [place] [address] Felicia Reaves MD Social History Tobacco Use [...] encounter Miscellaneous Notes * Telephone Encounter - Gordo Salazar - 06/29/2018 10:20 AM EST Pt called stating she received a letter informing of a colonoscopy F/U with Dr. Reaves. Please review documented in this encounter Plan of Treatment Not on file documented as of this encounter Visit Diagnoses Not on filedocumented in this encounter Care Teams Insulation Board Calender Operator Relationship Specialty Start Date End Date Tiffanie Ding MD PCP - General Internal Medicine 06/17/1604/07 Jade Plata MD PCP - General Internal Medicine 04/08/19 04/04/21 Marina Love MD [address] [place] [address] PCP - General Internal Medicine 04/05/21 10/20/21 [facility], Pcp [address] [place] [address] PCP - General Internal Medicine 10/21/21 08/10/22 [facility], Pcp [address] [place] [address] PCP - General Internal Medicine 08/11/22 Shanna Álvarez MD Specialist Cardiology 02/10/21 Dejah Peoples, DILIP [address] [place] [address] Specialist Nurse Practitioner Family 02/28/24 documented as of this encounter
--- OUTSIDE RECORDS SUMMARY | 2024-08-23 10:58 | XMS_ITS | Encounter Summary ---
Author Organization [facility] Address [address] [place] [address] Care Team Providers Care Loan Documentation Specialist Name Role Phone Jade Plata MD Primary Care Provider Unavail able Shanna Álvarez MD Unavailable [phone] Marina Love MD Primary Care Provider [phone] Community, Pcp Primary Care Provider Unavailabl e [facility], Pcp Primary Care Provider Unavailabl e Dejah Peoples DNP Unavailable [phone] Encounter Details Date Type Department Care Team Description 01/07/2021 [facility] Medical Records [address] [place] [address] Social History Tobacco Use Types Packs/Day Years [...] on filedocumented in this encounter Care Teams Loan Documentation Specialist Relationship Specialty Start Date End Date Jade Plata MD PCP - General Internal Medicine 04/08/19 04/04/21 Marina Love MD [address] [place] [address] 78395 PCP - General Internal Medicine 04/05/21 10/20/21 [facility], Pcp [address] [place] [address] 18907 PCP - General Internal Medicine 10/21/21 08/10/22 [facility], Pcp [address] [place] [address] 13393 PCP - General Internal Medicine 08/11/22 Shanna Álvarez MD Specialist Cardiology 02/10/21 Dejah Peoples, DILIP [address] [place] [address] Specialist Nurse Practitioner Family 02/28/24 documented as of this encounter
--- OUTSIDE RECORDS SUMMARY | 2024-08-23 10:58 | XMS_ITS | Encounter Summary ---
Author Organization [facility] Address [address] [place] [address] Care Team Providers Care Custom Shoe Designer And Maker Name Role Phone Tiffanie Ding MD Primary Care Provider Un available Jade Plata MD Primary Care Provider Unavail able Shanna Álvarez MD Unavailable [phone] Marina Love MD Primary Care Provider [phone] Community, Pcp Primary Care Provider Unavailabl e Community, Pcp Primary Care Provider Unavailabl e Dejah Peoples DNP Unavailable [phone] Encounter Details Date Type Department Care Team Description 07/10/2018 Orders Only Radiology - [address] [address] Tiffanie Ding MD Diabetes mellitus without complication [...] EST [facility] Comment: If patient is -Monegasque, multiply result by 1.21 Chronic Kidney Disease: [...] uncontrolled documented in this encounter Care Teams Custom Shoe Designer And Maker Relationship Specialty Start Date End Date Tiffanie Ding MD PCP - General Internal Medicine 06/17/1604/07 Jade Plata MD PCP - General Internal Medicine 04/08/19 04/04/21 Marina Love MD [address] [place] [address] PCP - General Internal Medicine 04/05/21 10/20/21 [facility], Pcp [address] [place] [address] PCP - General Internal Medicine 10/21/21 08/10/22 [facility], Pcp [address] [place] [address] PCP - General Internal Medicine 08/11/22 Shanna Álvarez MD Specialist Cardiology 02/10/21 Dejah Peoples DNP [address] [place] [address] Specialist Nurse Practitioner Family 02/28/24 documented as of this encounter
--- OUTSIDE RECORDS SUMMARY | 2024-08-23 10:58 | XMS_ITS | Encounter Summary ---
Author Organization [email or web address] Address [address] [place] [address] Care Team Providers Care Research Hydraulic Engineer Name Role Phone Cedric Friedman Primary Care Provider [phone] Reason for Referral * Imaging (Routine) - Closed Specialty Diagnoses / Procedures Referred By Terri posadas Referred To Contact Radiology Diagnoses Category 3 mammography result with short follow-up interval suggested for probably benign finding Procedures [facility] w Cedric Claros FNP [address] [place] [address] Phone: tel: fax: [address] [address] Phone: tel: Referral ID Status Reason Start Date Expiration Date Visits Re quested Visits Authorized [id number] Closed 04/06/2024 04/06/2025 1 1 Reason for Visit * Imaging (Routine) - Closed Specialty Diagnoses / Procedures Referred By Terri posadas Referred To Contact Radiology Diagnoses Category 3 mammography result with short follow-up interval suggested for probably benign finding Procedures [facility] w Cedric Claros FNP [address] [place] [address] Phone: tel: fax: [address] [address] Phone: tel: Referral ID Status Reason Start Date Expiration Date Visits Re quested Visits Authorized [id number] Closed 04/06/2024 04/06/2025 1 1 Encounter Details Date Type Department Care Team (Latest Contact Info) Description 07/25/2024 12:53 PM EST - 07/25/2024 11:59 PM EST Hospital Encounter [facility] [address] [address] Category 3 mammography result with [...] Info) Description 08/26/2024 7:30 AM EDT Appointment [facility] Ultrasound [address] [place] [address] 08/26/2024 8:30 AM EDT Appointment [facility] [address] [address] documented as of this encounter Procedures Procedure [...] recommended. Mammo Location: [facility], [address] [place] [address], [address], . -------- FINAL REPORT -------- Dictated By: Marina May Dictated Date: 07/25/2024 14:29 ET Assigned Physician: Marina May Reviewed and Electronically Signed By: Marina May Signed Date: 07/25/2024 14:54 ET Workstation ID: [id number] Transcribed By: Self Edit Transcribed Date: 07/25/2024 [...] recommended. Mammo Location: [facility], [address] [place] [address], [address], . -------- FINAL REPORT -------- Dictated By: Marina May Dictated Date: 07/25/2024 14:29 ET Assigned Physician: Marina May Reviewed and Electronically Signed By: Marina May Signed Date: 07/25/2024 14:54 ET Workstation ID: [id number] Transcribed By: Self Edit Transcribed Date: 07/25/2024 14:34 ET Cedric DURAN IMG BI PROCEDURES Final Result documented in this encounter Visit Diagnoses Diagnosis Category 3 mammography result with short follow-up interval suggested for probably benign finding documented in this encounter Care Teams Research Hydraulic Engineer Relationship Specialty Start Date End Date Cedric Friedman FNP [address] [place] [address] PCP - General Family Medicine 07/25/24 documented as of this encounter
--- OUTSIDE RECORDS SUMMARY | 2024-08-23 10:58 | XMS_ITS | Encounter Summary ---
Author Organization [employer] [facility] Address [address] [place] [address] Care Team Providers Care Full Time Babysitter Name Role Phone Shanna Álvarez MD Unavailable [phone] Community, Pcp Primary Care Provider Dejah Elliott DNP Unavailable [phone] Encounter Details Date Type Department Care Team Description 01/04/2024 Hospital Medical Records [address] [place] [address] [facility] Social History Tobacco Use Types Packs/Day [...] on filedocumented in this encounter Care Teams Full Time Babysitter Relationship Specialty Start Date End Date Community, Pcp PCP - General Internal Medicine 08/11/22 Shanna Álvarez MD Specialist Cardiology 02/10/21 Dejah Peoples DNP Specialist Nurse Practitioner Family 02/28/24 documented as of this encounter
--- OUTSIDE RECORDS SUMMARY | 2024-08-23 10:58 | XMS_ITS | Encounter Summary ---
Author Organization [employer] [facility] Address [address] [place] [address] Care Team Providers Care Wreath Machine Operator Name Role Phone Jade Plata MD Primary Care Provider Unavail able Shanna Álvarez MD Unavailable [phone] Marina Love MD Primary Care Provider [phone] Community, Pcp Primary Care Provider Unavailabl e [facility], Pcp Primary Care Provider Unavailabl e Dejah Peoples DNP Unavailable [phone] Reason for Visit * Reason Onset Date Comments refill request 02/03/2021 Encounter Details Date Type Department Care Team Description 02/03/2021 Refill Adult Medicine [address] [address] Jade Plata MD refill request Social History Tobacco Use Types Packs/Day Years [...] Telephone Encounter - Camelia Valdovinos M.A. - 02/03/2021 10:18 AM EDT Last office visit 11/03/20 Next office visit 04/05/21 Lab Results Component Value Date NA 136 02/01/2019 K 4.6 02/01/2019 CO2 28 02/01/2019 CL 99 02/01/2019 BUN 11 02/01/2019 CREAT 0.82 02/01/2019 GLU 151 02/01/2019 CA 9.4 02/01/2019 GFR > 60 02/01/2019 * Telephone Encounter - Alicia Carlos - 02/03/2021 9:08 AM EDT Patient would like script to be: E-PRESCRIBED/FAXED TO PHARMACY WHEN WAS THE PATIENT'S LAST APPOINTMENT IN ADULT MEDICINE? 11/03/20 WHEN WAS THE LAST TIME THE PATIENT SAW THEIR PCP? Same as above Does patient have an upcoming appointment? Yes 04/05/21 (THE MEDICATION REQUESTED IS ON THE MED [...] N/A Patients current insurance carrier is: Payor: [employer] / Plan: [employer] [facility] / Product Type: MEDICAID RISK documented in this encounter Plan of Treatment Not on file documented as of this encounter Visit Diagnoses Not on filedocumented in this encounter Care Teams Wreath Machine Operator Relationship Specialty Start Date End Date Jade Plata MD PCP - General Internal Medicine 04/08/19 04/04/21 Marina Love MD [address] [place] [address] PCP - General Internal Medicine 04/05/21 10/20/21 [facility], Pcp [address] [place] [address] PCP - General Internal Medicine 10/21/21 08/10/22 [facility], Pcp [address] [place] [address] PCP - General Internal Medicine 08/11/22 Shanna Álvarez MD Specialist Cardiology 02/10/21 Dejah Peoples, DILIP [address] [place] [address] Specialist Nurse Practitioner Family 02/28/24 documented as of this encounter
--- OUTSIDE RECORDS SUMMARY | 2024-08-23 10:58 | XMS_ITS | Encounter Summary ---
Author Organization [facility] Address [address] [place] [address] Care Team Providers Care Food Truck Caterer Name Role Phone Shanna Álvarez MD Unavailable [phone] Marina Love MD Primary Care Provider Community, Pcp Primary Care Provider Unavailabl [facility], Pcp [facility] Dejah Peoples DNP Unavailable [phone] Encounter Details Date Type Department Care Team Description 09/14/2021 Telephone Gastroenterology - [place] [address] [facility] [address] [place] [address] PA-C [address] [facility] [address] [place] [address] Social History Tobacco Use Types Packs/Day Years [...] on filedocumented in this encounter Care Teams Food Truck Caterer Relationship Specialty Start Date End Date Marina Love MD [address] [place] [address] PCP - General Internal Medicine 04/05/21 10/20/21 [facility], Pcp [address] [place] [address] PCP - General Internal Medicine 10/21/21 08/10/22 [facility], Pcp [address] [place] [address] PCP - General Internal Medicine 08/11/22 Shanna Álvarez MD Specialist Cardiology 02/10/21 Dejah Peoples DNP [address] [place] [address] Specialist Nurse Practitioner Family 02/28/24 documented as of this encounter
--- OUTSIDE RECORDS SUMMARY | 2024-08-23 10:58 | XMS_ITS | Encounter Summary ---
Author Organization [facility] Address [address] [place] [address] Care Team Providers Care Rn Renal Name Role Phone Aneudy Ness MD Primary Care Provider [phone] Tiffanie Ding MD Primary Care Provider Un available Jade Plata MD Primary Care Provider Unavail able Shanna Álvarez MD Unavailable [phone] Marina Love MD Primary Care Provider Community, Pcp Primary Care Provider Unavailabl e Community, Pcp Primary Care Provider Unavailcresencio e Dejah Peoples DNP Unavailable [phone] Encounter Details Date Type Department Care Team Description 10/16/2015 Release of Information Medical Records [address] [place] [address] Abstract, Provider Social History Tobacco Use Types Packs/Day Years Used Date Smoking Tobacco: Never Assessed Sex Assigned at Date Recorded Not on file Job Start Date Occupation Industry Not on file Not on file Not on file documented as of this encounter Plan of Treatment Not on file documented as of this encounter Visit Diagnoses Not on filedocumented in this encounter Care Teams Rn Renal Relationship Specialty Start Date End Date Aneudy Ness MD [address] [place] [address] PCP - General Internal Medicine 10/12/15 06/16/16 Tiffanie Ding MD [address] [place] [address] PCP - General Internal Medicine 06/17/16 04/07/19 Jade Plata MD [address] [place] [address] PCP - General Internal Medicine 04/08/19 04/04/21 Marina Love MD [address] [place] [address] PCP - General Internal Medicine 04/05/21 10/20/21 [facility], Pcp [address] [place] [address] PCP - General Internal Medicine 10/21/21 08/10/22 [facility], Pcp [address] [place] [address] PCP - General Internal Medicine 08/11/22 Shanna Álvarez MD [address] [place] [address] Specialist Cardiology 02/10/21 Dejah Peoples DNP [address] [place] [address] Specialist Nurse Practitioner Family 02/28/24 documented as of this encounter
--- OUTSIDE RECORDS SUMMARY | 2024-08-23 10:58 | XMS_ITS | Encounter Summary ---
Author Organization [facility] Address [address] [place] [address] Care Team Providers Care Maintenance Chief Name Role Phone Jade Plata MD Primary Care Provider Unavail able Shanna Álvarez MD Unavailable [phone] Marina Love MD Primary Care Provider [phone] [facility], Pcp Primary Care Provider Unavailabl e [facility], Pcp Primary Care Provider UnavailDejah Jacobs DNP Unavailable [phone] Encounter Details Date Type Department Care Team Description 01/07/2021 Hospital Medical Records [address] [place] [address] Karis Christie NP Social History Tobacco Use [...] filedocumented in this encounter Care Teams Maintenance Chief Relationship Specialty Start Date End Date Jade Plata MD PCP - General Internal Medicine 04/08/19 04/04/21 Marina Love MD [address] [place] [address] [id number] PCP - General Internal Medicine 04/05/21 10/20/21 [facility], Pcp [address] [place] [address] PCP - General Internal Medicine 10/21/21 08/10/22 [facility], Pcp [address] [place] [address] PCP - General Internal Medicine 08/11/22 Shanna Álvarez MD Specialist Cardiology 02/10/21 Dejah Peoples, DILIP [address] [place] [address] [phone] Specialist Nurse Practitioner Family 02/28/24 documented as of this encounter
--- OUTSIDE RECORDS SUMMARY | 2024-08-23 10:58 | XMS_ITS | Encounter Summary ---
Author Organization [facility] Address [address] [place] [address] Care Team Providers Care Supervisor Wound Name Role Phone Tiffanie Ding MD Primary Care Provider Un available Jade Plata MD Primary Care Provider Unavail able Shanna Álvarez MD Unavailable [phone] Marina Love MD Primary Care Provider [phone] Community, Pcp Primary Care Provider Unavailabl e Community, Pcp Primary Care Provider Unavailabl e Dejah Peoples DNP Unavailable [phone] Encounter Details Date Type Department Care Team Description 04/01/2019 [facility] Medical Records [address] [place] [address] Abstract, Provider Social History Tobacco Use Types [...] on filedocumented in this encounter Care Teams Supervisor Wound Relationship Specialty Start Date End Date Tiffanie Ding MD PCP - General Internal Medicine 06/17/1604/07 Jade Plata MD PCP - General Internal Medicine 04/08/19 04/04/21 Marina Love MD [address] [place] [address] [id number] PCP - General Internal Medicine 04/05/21 10/20/21 [facility], Pcp [address] [place] [address] PCP - General Internal Medicine 10/21/21 08/10/22 [facility], Pcp [address] [place] [address] PCP - General Internal Medicine 08/11/22 Shanna Álvarez MD Specialist Cardiology 02/10/21 Dejah Peoples, DILIP [address] [place] [address] Specialist Nurse Practitioner [facility] 02/28/24 documented as of this encounter
--- OUTSIDE RECORDS SUMMARY | 2024-08-23 10:58 | XMS_ITS | Encounter Summary ---
Author Organization [facility] Address [address] [place] [address] Care Team Providers Care Athletic Field Custodian Name Role Phone Tiffanie Ding MD Primary Care Provider Un available Jade Plata MD Primary Care Provider Unavail able Shanna Álvarez MD Unavailable [phone] Marina Love MD Primary Care Provider [phone] Community, Pcp Primary Care Provider Unavailabl e Community, Pcp Primary Care Provider Unavailabl e Dejah Peoples DNP Unavailable [phone] Encounter Details Date Type Department Care Team Description 07/25/2018 Orders Only Radiology - [address] [address] Tiffanie Ding MD Diabetes mellitus without complication [...] EST [facility] Comment: If patient is -Finnish, multiply result by 1.21 Chronic Kidney Disease: [...] uncontrolled documented in this encounter Care Teams Athletic Field Custodian Relationship Specialty Start Date End Date Tiffanie Ding MD PCP - General Internal Medicine 06/17/1604/07 Jade Plata MD PCP - General Internal Medicine 04/08/19 04/04/21 Marina Love MD [address] [place] [address] PCP - General Internal Medicine 04/05/21 10/20/21 [facility], Pcp [address] [place] [address] PCP - General Internal Medicine 10/21/21 08/10/22 [facility], Pcp [address] [place] [address] PCP - General Internal Medicine 08/11/22 Shanna Álvarez MD Specialist Cardiology 02/10/21 Dejah Peoples DNP [address] [place] [address] Specialist Nurse Practitioner Family 02/28/24 documented as of this encounter
--- OUTSIDE RECORDS SUMMARY | 2024-08-23 10:58 | XMS_ITS | Encounter Summary ---
Author Organization [facility] Address [address] [place] [address] Care Team Providers Care Public Speaking Coach Name Role Phone Tiffanie Ding MD Primary Care Provider Un available Jade Plata MD Primary Care Provider Unavail able Shanna Álvarez MD Unavailable [phone] Marina Love MD Primary Care Provider [phone] Community, Pcp Primary Care Provider Unavailabl e Community, Pcp Primary Care Provider Unavailabl e Dejah Peoples DNP Unavailable [phone] Reason for Visit * Reason Onset Date Comments lab test 07/25/2018 Encounter Details Date Type Department Care Team Description 07/25/2018 Telephone Radiology - [address] [address] Tiffanie Ding MD lab test Social History Tobacco Use Types Packs/Day Years [...] encounter Miscellaneous Notes * Telephone Encounter - Gagan Peters - 07/25/2018 2:02 PM EST Pt had ct/ivp scan done 07/25/18 Pt instructed to hold glucophage/metformin prior to ct/ivp Pt required to have creatinine drawn before resuming glucopahge/metformin. Pt instructed to come in for lab work 07/27/18 Pt has paper requisition from radiology. Patient will call into adult [facility] 07/27/18 for dosage instructions on metformin/glucophage basedon creatinine results. Please consult with pt's provider and advise patient. documented in this encounter Plan of Treatment Not on file documented as of this encounter Visit Diagnoses Not on filedocumented in this encounter Care Teams Public Speaking Coach Relationship Specialty Start Date End Date Tiffanie Ding MD PCP - General Internal Medicine 06/17/1604/07 Jade Plata MD PCP - General Internal Medicine 04/08/19 04/04/21 Marina Love MD [address] [place], [place] [phone] PCP - General Internal Medicine 04/05/21 10/20/21 [facility], Pcp [address] [place] [address] PCP - General Internal Medicine 10/21/21 08/10/22 [facility], Pcp [address] [place] [address] PCP - General Internal Medicine 08/11/22 Shanna Álvarez MD Specialist Cardiology 02/10/21 Dejah Peoples DNP [address] [place] [address] Specialist Nurse Practitioner Family 02/28/24 documented as of this encounter
--- OUTSIDE RECORDS SUMMARY | 2024-08-23 10:58 | XMS_ITS | Encounter Summary ---
Author Organization [employer] [facility] Address [address] [place] [address] Care Team Providers Care Carpenter Apprentice Name Role Phone Sony Milton MD Primary Care Provider Unavailabl e Aneudy Ness MD Primary Care Provider [phone] Tiffanie Ding MD Primary Care Provider Un available Jade Plata MD Primary Care Provider Unavail able Shanna Álvarez MD Unavailable Marina Love MD Primary Care Provider [facility], Pcp Primary Care Provider Unavailabl e [facility], Pcp Primary Care Provider Unavailabl e Dejah Peoples DNP Unavailable [phone] Encounter Details Date Type Department Care Team Description 02/04/2009 SCAN Medical Records [address] [place] [address] Abstract, Provider Social History Tobacco Use Types [...] Date/Time Associated Diagnosis Comments OUTSIDE ECHO Routine 02/04/2009 documented in this encounter Results * OUTSIDE ECHO (02/04/2009) Provider Abstract CARDIOLOGY documented in this encounter Visit Diagnoses Not on filedocumented in this encounter Care Teams Carpenter Apprentice Relationship Specialty Start Date End Date Sony Milton MD PCP - General Cardiovascular Disease 04/30/14 10/11/15 Aneudy Ness MD [address] [place] [address] PCP - General Internal Medicine 10/12/15 06/16/16 Tiffanie Ding MD [address] [place] [address] PCP - General Internal Medicine 06/17/16 04/07/19 Jade Plata MD [address] [place] [address] PCP - General Internal Medicine 04/08/19 04/04/21 Marina Love MD [address] [place] [address] PCP - General Internal Medicine 04/05/21 10/20/21 [facility], Pcp [address] [place] [address] PCP - General Internal Medicine 10/21/21 08/10/22 [facility], Pcp [address] [place], [place] [phone] PCP - General Internal Medicine 08/11/22 Shanna Álvarez MD [address] [place] [address] Specialist Cardiology 02/10/21 Dejah Peoples, DILIP [address] [place] [address] Specialist Nurse Practitioner Family 02/28/24 documented as of this encounter
--- OUTSIDE RECORDS SUMMARY | 2024-08-23 10:58 | XMS_ITS | Encounter Summary ---
Author Organization [facility] Address [address] [place] [address] Care Team Providers Care Water Carter Name Role Phone Tiffanie Ding MD Primary Care Provider Un available Jade Plata MD Primary Care Provider Unavail able Shanna Álvarez MD Unavailable [phone] Marina Love MD Primary Care Provider [phone] [facility], Pcp Primary Care Provider Unavailabl e [facility], Pcp Primary Care Provider Unavailabl e Dejah Peoples DNP Unavailable [phone] Encounter Details Date Type Department Care Team Description 10/16/2018 Orders Only Medical Records [address] [place] [address] Abstract, Provider Mass of parotid gland Social History Tobacco Use Types Packs/Day Years [...] Procedure Name Priority Date/Time Associated Diagnosis Comments SONO GUIDE NEEDLE BIOPSY Routine 10/12/2018 Mass of parotid gland documented in this encounter Results * SONO GUIDE NEEDLE BIOPSY (10/12/2018) Jalen Ferguson MD ULTRASOUND documented in this encounter Visit Diagnoses Diagnosis Mass of parotid gland Swelling, mass, or lump in head and neck documented in this encounter Care Teams Water Carter Relationship Specialty Start Date End Date Tiffanie Ding MD PCP - General Internal Medicine 06/17/1604/07 Jade Plata MD PCP - General Internal Medicine 04/08/19 04/04/21 Marina Love MD [address] [place] [address] PCP - General Internal Medicine 04/05/21 10/20/21 [facility], Pcp [address] [place] [address] PCP - General Internal Medicine 10/21/21 08/10/22 [facility], Pcp [address] [place] [address] PCP - General Internal Medicine 08/11/22 Shanna Álvarez MD Specialist Cardiology 02/10/21 Dejah Peoples DNP [address] [place] [address] Specialist Nurse Practitioner Family 02/28/24 documented as of this encounter
--- OUTSIDE RECORDS SUMMARY | 2024-08-23 10:58 | XMS_ITS | Encounter Summary ---
Author Organization [employer] Address [address] [place] [address] Care Team Providers Care Bait Tier Name Role Phone Cedric Friedman Primary Care Provider [phone] Reason for Referral * Imaging (Routine) - Closed Specialty Diagnoses / Procedures Referred By Terri posadas Referred To Contact Radiology Diagnoses Category 3 mammography result with short follow-up interval suggested for probably benign finding Procedures US Breast Limited Cedric Baires FNP [address] [place] [address] Phone: tel: fax: [facility] Referral ID Status Reason Start Date Expiration Date Visits Re quested Visits Authorized [id number] Closed 07/25/2024 07/25/2025 1 1 Reason for Visit * Imaging (Routine) - Closed Specialty Diagnoses / Procedures Referred By Terri posadas Referred To Contact Radiology Diagnoses Category 3 mammography result with short follow-up interval suggested for probably benign finding Procedures US Breast Limited Cedric Baires FNP [address] [place] [address] Phone: tel: fax: [facility] Referral ID Status Reason Start Date Expiration Date Visits Re quested Visits Authorized [id number] Closed 07/25/2024 07/25/2025 1 1 Encounter Details Date Type Department Care Team (Latest Contact Info) Description 07/25/2024 1:17 PM EST - 07/25/2024 11:59 PM EST Hospital Encounter [facility] Ultrasound [address] [place] [address] Category 3 mammography result with [...] Upcoming Encounters Date Type Department Care Team ([facility] st Contact Info) Description 08/26/2024 7:30 AM EDT Appointment [facility] Ultrasound [address] [place] [id number] 08/26/2024 8:30 AM EDT Appointment [facility] [address] [phone] documented as of this encounter Procedures Procedure [...] recommended. Mammo Location: [facility], [address] [place] [address], [address], . -------- FINAL REPORT -------- Dictated By: Marina May Dictated Date: 07/25/2024 14:29 ET Assigned Physician: Marina May Reviewed and Electronically Signed By: Marina May Signed Date: 07/25/2024 14:54 ET Workstation ID: [id number] Transcribed By: Self Edit Transcribed Date: 07/25/2024 [...] recommended. Mammo Location: [facility], [address] [place] [address], [address], . -------- FINAL REPORT -------- Dictated By: Marina May Dictated Date: 07/25/2024 14:29 ET Assigned Physician: Marina May Reviewed and Electronically Signed By: Marina May Signed Date: 07/25/2024 14:54 ET Workstation ID: [id number] Transcribed By: Self Edit Transcribed Date: 07/25/2024 14:34 ET us Cedric DURAN IMG US PROCEDURES Final Result documented in this encounter Visit Diagnoses Diagnosis Category 3 mammography result with short follow-up interval suggested for probably benign finding documented in this encounter Care Teams Bait Tier Relationship Specialty Start Date End Date Cedric Friedman FNP [address] [place] [phone] PCP - General Family Medicine 07/25/24 documented as of this encounter
--- OUTSIDE RECORDS SUMMARY | 2024-08-23 10:59 | XMS_ITS | Encounter Summary ---
Author Organization [facility] Address [address] [place] [address] Care Team Providers Care Campaign Director Name Role Phone Jade Plata MD Primary Care Provider Unavail able Shanna Álvarez MD Unavailable [phone] Marina Love MD Primary Care Provider [phone] [facility], Pcp Primary Care Provider Unavailabl [facility], Pcp Primary Care Provider UnavailDejah Jacobs DNP Unavailable [phone] Encounter Details Date Type Department Care Team Description 08/27/2020 Old Medical Records Medical Records [address] [place] [address] Abstract, Provider Social History Tobacco Use Types [...] on filedocumented in this encounter Care Teams Campaign Director Relationship Specialty Start Date End Date Jade Plata MD PCP - General Internal Medicine 04/08/19 04/04/21 Marina Love MD [address] [place] [address] [phone] PCP - General Internal Medicine 04/05/21 10/20/21 [facility], Pcp [address] [place] [address] PCP - General Internal Medicine 10/21/21 08/10/22 [facility], Pcp [address] [place] [address] PCP - General Internal Medicine 08/11/22 Shanna Álvarez MD Specialist Cardiology 02/10/21 Dejah Peoples DNP [address] [place] [address] [phone] Specialist Nurse Practitioner Family 02/28/24 documented as of this encounter
--- OUTSIDE RECORDS SUMMARY | 2024-08-23 10:59 | XMS_ITS | Encounter Summary ---
Author Organization [facility] [facility] Address [address] [place] [address] Care Team Providers Care Prn Physical Therapist Name Role Phone Jade Plata MD Primary Care Provider Unavail able Shanna Álvarez MD Unavailable [phone] Marina Love MD Primary Care Provider [facility], [facility]cp Primary Care Provider Unavailabl e [facility], [facility]cp Primary Care Provider Unavailabl e Dejah Peoples DNP Unavailable [phone] Reason for Visit * Reason Comments E-prescribe Rx Request Encounter Details Date Type Department Care Team Description 07/11/2019 Refill Adult Medicine [address] [address] Jade Plata MD E-prescribe Rx Request Social [...] encounter Miscellaneous Notes * Telephone Encounter - Ratna Thomas - 07/11/2019 10:53 AM EST Patient would like script to be: E-PRESCRIBED/FAXED TO PHARMACY WHEN WAS THE PATIENT'S LAST APPOINTMENT IN ADULT MEDICINE? 05/06/19 WHEN WAS THE LAST TIME THE PATIENT SAW THEIR PCP? 02/01/19 Does patient have an upcoming appointment? Yes 08/09/19 (THE MEDICATION REQUESTED IS ON THE MED [...] N/A Patients current insurance carrier is: Payor: [employer] FFS / Plan: [employer] / Product Type: MEDICAID RISK documented in this encounter Plan of Treatment Not on file documented as of this encounter Visit Diagnoses Diagnosis Epigastric pain Abdominal pain, epigastric Gastroesophageal reflux disease without esophagitis Esophageal reflux Old [place] (myocardial infarction) Old myocardial infarction documented in this encounter Care Teams Prn Physical Therapist Relationship Specialty Start Date End Date Jade Plata MD PCP - General Internal Medicine 04/08/19 04/04/21 Marina Love MD [address] [place] [address] PCP - General Internal Medicine 04/05/21 10/20/21 [facility], Pcp [address] [place], [place] [phone] PCP - General Internal Medicine 10/21/21 08/10/22 [facility], Pcp [address] [place], [place] [phone] PCP - General Internal Medicine 08/11/22 Shanna Álvarez MD Specialist Cardiology 02/10/21 Dejah Peoples DNP [address] [place] [address] Specialist Nurse Practitioner Family 02/28/24 documented as of this encounter
--- OUTSIDE RECORDS SUMMARY | 2024-08-23 10:59 | XMS_ITS | Encounter Summary ---
Author Organization [facility] Address [address] [place] [address] Care Team Providers Care Grain Merchandising Manager Name Role Phone Shanna Álvarez MD Unavailable [phone] Marina Love MD Primary Care Provider [phone] [facility], Pcp [facility] Primary Care Provider [facility] Dejah Peoples DNP Unavailable [phone] Encounter Details Date Type Department Care Team Description 09/03/2021 Telephone Gastroenterology - [place] [facility] [address] [place] [address] PA-C [address] [facility] [address] [place] [address] Social History Tobacco Use Types Packs/Day Years [...] and vitamin C to local pharmacy[facility] [place] [facility] * Telephone Encounter - Wendy Hernandez [...] on filedocumented in this encounter Care Teams Grain Merchandising Manager Relationship Specialty Start Date End Date Marina Love MD [address] [place] [address] PCP - General Internal Medicine 04/05/21 10/20/21 [facility], Pcp [address] [place] [address] PCP - General Internal Medicine 10/21/21 08/10/22 [facility], Pcp [address] [place] [address] PCP - General Internal Medicine 08/11/22 Shanna Álvarez MD Specialist Cardiology 02/10/21 Dejah Peoples DNP [address] [place] [address] Specialist Nurse Practitioner Family 02/28/24 documented as of this encounter
--- OUTSIDE RECORDS SUMMARY | 2024-08-23 10:59 | XMS_ITS | Encounter Summary ---
Author Organization [facility] Address [address] [place] [address] Care Team Providers Care Pensions Retirement Plan Specialist Name Role Phone Shanna Álvarez MD Unavailable [phone] Marina Love MD Primary Care Provider [phone] [facility], Pcp Primary Care Provider [facility], Pcp Primary Care Provider Dejah Elliott DNP Unavailable [phone] Encounter Details Date Type Department Care Team Description 08/13/2021 Social Worker Clinical Report Medical Records [address] [place] [address] [facility] Social History Tobacco Use Types Packs/Day Years [...] on filedocumented in this encounter Care Teams Pensions Retirement Plan Specialist Relationship Specialty Start Date End Date Marina Love MD [address] [place] [address] [phone] PCP - General Internal Medicine 04/05/21 10/20/21 [facility], Pcp [address] [place] [address] PCP - General Internal Medicine 10/21/21 08/10/22 [facility], Pcp [address] [place] [address] PCP - General Internal Medicine 08/11/22 Shanna Álvarez MD Specialist Cardiology 02/10/21 Dejah Peoples, DILIP [address] [place] [address] Specialist Nurse Practitioner Family 02/28/24 documented as of this encounter
--- OUTSIDE RECORDS SUMMARY | 2024-08-23 10:59 | XMS_ITS | Encounter Summary ---
Author Organization [facility] Address [address] [place] [address] Care Team Providers Care Manager Automotive Name Role Phone Tiffanie Ding MD Primary Care Provider Un available Jade Plata MD Primary Care Provider Unavail able Shanna Álvarez MD Unavailable [phone] Marina Love MD Primary Care Provider [phone] [facility], Pcp Primary Care Provider Unavailabl e [facility], Pcp Primary Care Provider Unavailabl e Dejah Peoples DNP Unavailable [phone] Reason for Visit * Reason Onset Date Comments REFERRAL 07/26/2016 colonoscopy Encounter Details Date Type Department Care Team Description 07/26/2016 Telephone Gastroenterology - [address] [id number] Sandeep Daily MD REFERRAL (colonoscopy) Social History [...] book colonoscopy, can see anyone. Pt is iraqi speaking. * Telephone Encounter - Sandeep Daily MD - 07/26/2016 1:52 PM EST The patient underwent screening colonoscopy by Dr. Shahzad Fregoso on 12 December 2006 at the [facility]. Low technical difficulty procedure under moderate sedation that was negative. He recommended colonoscopy again for her in 10 years. She can be scheduled for screening colonoscopy routinely here in our office endoscopy unit. * Telephone Encounter - Una Cedeño - 07/26/2016 1:42 PM EST Pt was referred to us for a colonoscopy, pt says she had one done 10 yrs ago at [facility]. Notes were requested, put in in basket. Can you review to see if we need to book at hospital or here, thank you! documented in this encounter Plan of Treatment Not on file documented as of this encounter Visit Diagnoses Not on filedocumented in this encounter Care Teams Manager Automotive Relationship Specialty Start Date End Date Tiffanie Ding MD PCP - General Internal Medicine 06/17/1604/07 Jade Plata MD PCP - General Internal Medicine 04/08/19 04/04/21 Marina Love MD [address] [place] [address] PCP - General Internal Medicine 04/05/21 10/20/21 [facility], Pcp [address] [place] [address] PCP - General Internal Medicine 10/21/21 08/10/22 [facility], Pcp [address] [place] [address] PCP - General Internal Medicine 08/11/22 Shanna Álvarez MD Specialist Cardiology 02/10/21 Dejah Peoples DNP [address] [place] [address] Specialist Nurse Practitioner Family 02/28/24 documented as of this encounter
--- OUTSIDE RECORDS SUMMARY | 2024-08-23 10:59 | XMS_ITS | Encounter Summary ---
Author Organization [facility] Address [address] [place] [address] Care Team Providers Care Research Dairy Farm Supervisor Name Role Phone Jade Plata MD Primary Care Provider Unavail able Shanna Álvarez MD Unavailable [phone] Marina Love MD Primary Care Provider [phone] [facility], Pcp Primary Care Provider Unavailabl e [facility], Pcp Primary Care Provider UnavailDejah Jacobs DNP Unavailable [phone] Encounter Details Date Type Department Care Team Description 07/08/2019 [employer] Barista Report Medical Records [address] [place] [address] Marci Payne [address] [place] [address] Social History Tobacco Use Types Packs/Day Years [...] on filedocumented in this encounter Care Teams Research Dairy Farm Supervisor Relationship Specialty Start Date End Date Jade Plata MD PCP - General Internal Medicine 04/08/19 04/04/21 Marina Love MD [address] [place] [address] PCP - General Internal Medicine 04/05/21 10/20/21 [facility], Pcp [address] [place] [address] PCP - General Internal Medicine 10/21/21 08/10/22 [facility], Pcp [address] [place] [address] PCP - General Internal Medicine 08/11/22 Shanna Álvarez MD Specialist Cardiology 02/10/21 Dejah Peoples, DILIP [address] [place] [address] Specialist Nurse Practitioner Family 02/28/24 documented as of this encounter
--- OUTSIDE RECORDS SUMMARY | 2024-08-23 10:59 | XMS_ITS | Encounter Summary ---
Author Organization [facility] [facility] Address [address] [place] [address] Care Team Providers Care Powder Loader Name Role Phone Jade Plata MD Primary Care Provider Unavail able Shanna Álvarez MD Unavailable [phone] Marina Love MD Primary Care Provider [phone] [facility], Pcp Primary Care Provider Unavailabl e [facility], Pcp Primary Care Provider Unavailabl e Dejah Peoples DNP Unavailable [phone] Encounter Details Date Type Department Care Team Description 09/08/2020 Stone Setter Apprentice Report Medical Records [address] [place] [address] Nellie Aranda [address] [place] [address] Social History Tobacco Use Types Packs/Day Years [...] on filedocumented in this encounter Care Teams Powder Loader Relationship Specialty Start Date End Date Jade Plata MD PCP - General Internal Medicine 04/08/19 04/04/21 Marina Love MD [address] [place] [address] PCP - General Internal Medicine 04/05/21 10/20/21 [facility], Pcp [address] [place] [address] PCP - General Internal Medicine 10/21/21 08/10/22 [facility], Pcp [address] [place] [address] PCP - General Internal Medicine 08/11/22 Shanna Álvarez MD Specialist Cardiology 02/10/21 Dejah Peoples, DILIP [address] [place] [address] Specialist Nurse Practitioner Family 02/28/24 documented as of this encounter
--- OUTSIDE RECORDS SUMMARY | 2024-08-23 10:59 | XMS_ITS | Encounter Summary ---
Author Organization [facility] [facility] Address [address] [place] [address] Care Team Providers Care Glove Boarder Name Role Phone Jade Plata MD Primary Care Provider Unavail able Shanna Álvarez MD Unavailable [phone] Marina Love MD Primary Care Provider [facility], Pcp Primary Care Provider Unavailabl e [facility], Pcp Primary Care Provider Unavailabl e Dejah Peoples DNP Unavailable [phone] Encounter Details Date Type Department Care Team Description 07/15/2019 Biomedical Engineering Internship Report Medical Records [address] [place] [address] Nellie Aranda [address] [place] [address] Social History Tobacco Use Types Packs/Day Years [...] on filedocumented in this encounter Care Teams Glove Boarder Relationship Specialty Start Date End Date Jade Plata MD PCP - General Internal Medicine 04/08/19 04/04/21 Marina Love MD [address] [place] [address] [phone] PCP - General Internal Medicine 04/05/21 10/20/21 [facility], Pcp [address] [place] [address] PCP - General Internal Medicine 10/21/21 08/10/22 [facility], Pcp [address] [place] [address] PCP - General Internal Medicine 08/11/22 Shanna Álvarez MD Specialist Cardiology 02/10/21 Dejah Peoples, DILIP [address] [place] [address] Specialist Nurse Practitioner Family 02/28/24 documented as of this encounter
--- OUTSIDE RECORDS SUMMARY | 2024-08-23 10:59 | XMS_ITS | Encounter Summary ---
Author Organization [facility] Address [address] [place] [address] Care Team Providers Care Teacher Assistant Name Role Phone Jade Plata MD Primary Care Provider Unavail able Shanna Álvarez MD Unavailable [phone] Marina Love MD Primary Care Provider [phone] [facility], Pcp Primary Care Provider Unavailabl [facility], Pcp Primary Care Provider UnavailDejah Jacobs DNP Unavailable [phone] Encounter Details Date Type Department Care Team Description 08/13/2020 Hospital Medical Records [address] [place] [address] Social History Tobacco Use Types Packs/Day Years [...] on filedocumented in this encounter Care Teams Teacher Assistant Relationship Specialty Start Date End Date Jade Plata MD PCP - General Internal Medicine 04/08/19 04/04/21 Marina Love MD [address] [place], [place] [phone] PCP - General Internal Medicine 04/05/21 10/20/21 [facility], Pcp [address] [place], [place] [phone] PCP - General Internal Medicine 10/21/21 08/10/22 [facility], Pcp [address] [place] [address] PCP - General Internal Medicine 08/11/22 hSanna Álvarez MD Specialist Cardiology 02/10/21 Dejah Peoples, DILIP [address] [place] [address] Specialist Nurse Practitioner Family 02/28/24 documented as of this encounter
--- OUTSIDE RECORDS SUMMARY | 2024-08-23 10:59 | XMS_ITS | Encounter Summary ---
Author Organization [employer] [facility] Address [address] [place] [address] Care Team Providers Care Box Truck Owner Operator Name Role Phone Jade Plata MD Primary Care Provider Unavail able Shanna Álvarez MD Unavailable [phone] Marina Love MD Primary Care Provider [phone] [facility], Pcp Primary Care Provider Unavailabl e [facility], Pcp Primary Care Provider Unavailabl e Dejah Peoples [facility] Unavailable [phone] Reason for Visit * Reason Onset Date Comments Pre-visit Diabetes Lab Adult Medicine 04/22/2019 dm due on 05/06/2019 at 245 pm Encounter Details Date Type Department Care Team Description 04/22/2019 Telephone Respiratory and Diabetes Medicaid/ACO Pharmacist [address] [place] [address] Jade Plata MD Pre-visit Diabetes Lab Adult [...] ask that any orders entered by the [facility] Medicaid staff be associated with a diabetes diagnosis. You can use any diabetes diagnosis found on the problem list. 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, Pcp [address] [place] [address] PCP - General Internal Medicine 10/21/21 08/10/22 [facility], Pcp [address] [place] [address] 72783 PCP - General Internal Medicine 08/11/22 Shanna Álvarez MD Specialist Cardiology 02/10/21 Dejah Peoples, DILIP [address] [place] [address]509 Specialist Nurse Practitioner Family 02/28/24 documented as of this encounter
--- OUTSIDE RECORDS SUMMARY | 2024-08-23 10:59 | XMS_ITS | Encounter Summary ---
Author Organization [employer] [facility] Address [address] [place] [address] Care Team Providers Care Forest Technician Name Role Phone Jade Plata MD Primary Care Provider Unavail able Shanna Álvarez MD Unavailable [phone] Marina Love MD Primary Care Provider [phone] [facility], Pcp Primary Care Provider Unavailabl e [facility], Pcp Primary Care Provider UnavailDejah Jacobs DNP Unavailable [phone] Encounter Details Date Type Department Care Team Description 02/03/2020 Orders Only Adult Medicine [address] [address] Jade Plata MD Pulsatile neck mass Social History Tobacco Use Types Packs/Day Years [...] as of this encounter Visit Diagnoses Diagnosis Pulsatile neck mass documented in this encounter Care Teams Forest Technician Relationship Specialty Start Date End Date Jade Plata MD PCP - General Internal Medicine 04/08/19 04/04/21 Marina Love MD [address] [place] [address] 8[address] PCP - General Internal Medicine 04/05/21 10/20/21 [facility], Pcp [address] [place] [address]3598 PCP - General Internal Medicine 10/21/21 08/10/22 [facility], Pcp [address] [place] [address] 04641 PCP - General Internal Medicine 08/11/22 Shanna Álvarez MD Specialist Cardiology 02/10/21 Dejah Peoples, DILIP [address] [place] [address] Specialist Nurse Practitioner Family 02/28/24 documented as of this encounter
--- OUTSIDE RECORDS SUMMARY | 2024-08-23 10:59 | XMS_ITS | Encounter Summary ---
Author Organization [facility] Address [address] [place] [address] Care Team Providers Care Compress Trucker Name Role Phone Jade Plata MD Primary Care Provider Unavail able Shanna Álvarez MD Unavailable [phone] Marina Love MD Primary Care Provider [facility], Pcp Primary Care Provider Unavailabl e [facility], Pcp Primary Care Provider Unavailabl e Dejah Peoples DNP Unavailable [phone] Encounter Details Date Type Department Care Team Description 06/25/2020 Dairy Equipment Specialist Report Medical Records [address] [place] [address] Nellie Aranda [address] [place] [address] Social History Tobacco Use Types Packs/Day Years [...] have Coronavirus / COVID-19? No / Unsure 06/16/2020 8:47 AM EST documented as of this encounter Plan of Treatment Not on file documented as of this encounter Visit Diagnoses Not on filedocumented in this encounter Care Teams Compress Trucker Relationship Specialty Start Date End Date Jade Plata MD PCP - General Internal Medicine 04/08/19 04/04/21 Marina Love MD [address] [place] [address] PCP - General Internal Medicine 04/05/21 10/20/21 [facility], Pcp [address] [place] [address] 00857 PCP - General Internal Medicine 10/21/21 08/10/22 [facility], Pcp [address] [place], [place] [phone] PCP - General Internal Medicine 08/11/22 Shanna Álvarez MD Specialist Cardiology 02/10/21 Dejah Peoples DNP [address] [place] [address] Specialist Nurse Practitioner [facility] 02/28/24 documented as of this encounter
--- OUTSIDE RECORDS SUMMARY | 2024-08-23 10:59 | XMS_ITS | Encounter Summary ---
Author Organization [employer] [facility] Address [address] [place] [address] Care Team Providers Care Gear Shaver Set Up Operator Name Role Phone Jade Plata MD Primary Care Provider Unavail able Shanna Álvarez MD Unavailable [phone] Marina Love MD Primary Care Provider [phone] [facility], Pcp Primary Care Provider Unavailabl e [facility], Pcp Primary Care Provider UnavailDejah Jacobs DNP Unavailable [phone] Encounter Details Date Type Department Care Team Description 09/23/2019 Network Development Coordinator Report Medical Records [address] [place] [address] [facility] Social History Tobacco Use Types Packs/Day [...] on filedocumented in this encounter Care Teams Gear Shaver Set Up Operator Relationship Specialty Start Date End Date Jade Plata MD PCP - General Internal Medicine 04/08/19 04/04/21 Marina Love MD [address] [place] [address] [phone] PCP - General Internal Medicine 04/05/21 10/20/21 [facility], Pcp [address] [place] [address] PCP - General Internal Medicine 10/21/21 08/10/22 [facility], Pcp [address] [place] [address] 42703 PCP - General Internal Medicine 08/11/22 Shanna Álvarez MD Specialist Cardiology 02/10/21 Dejah Peoples, DILIP [address] [place] [address] Specialist Nurse Practitioner Family 02/28/24 documented as of this encounter
--- OUTSIDE RECORDS SUMMARY | 2024-08-23 10:59 | XMS_ITS | Encounter Summary ---
Author Organization [address] [facility] [employer] [facility] Address [address] [place] [address] Care Team Providers Care Adult Protective Caseworker Name Role Phone Jade Plata MD Primary Care Provider Unavail able Shanna Álvarez MD Unavailable [phone] Marina Love MD Primary Care Provider [phone] [facility], Pcp Primary Care Provider Unavailabl e [facility], Pcp Primary Care Provider UnavailDejah Jacobs DNP Unavailable [phone] Encounter Details Date Type Department Care Team Description 05/26/2020 [facility] Medical Records [address] [place] [address] Social History Tobacco Use Types Packs/Day Years [...] on filedocumented in this encounter Care Teams Adult Protective Caseworker Relationship Specialty Start Date End Date Jade Plata MD PCP - General Internal Medicine 04/08/19 04/04/21 Marina Love MD [address] [place] [address] PCP - General Internal Medicine 04/05/21 10/20/21 [facility], Pcp [address] [place] [address] 32788 PCP - General Internal Medicine 10/21/21 08/10/22 [facility], Pcp [address] [place] [address] 8[address]26 PCP - General Internal Medicine 08/11/22 Shanna Álvarez MD Specialist Cardiology 02/10/21 Dejah Peoples, DILIP [address] [place] [address]99 Specialist Nurse Practitioner Family 02/28/24 documented as of this encounter
--- OUTSIDE RECORDS SUMMARY | 2024-08-23 10:59 | XMS_ITS | Encounter Summary ---
Author Organization [employer] [facility] Address [address] [place] [address] Care Team Providers Care Museum Docent Name Role Phone Jade Plata MD Primary Care Provider Unavail able Shanna Álvarez MD Unavailable [phone] Marina Love MD Primary Care Provider [phone] [facility], Pcp Primary Care Provider Unavailabl e [facility], Pcp Primary Care Provider UnavailDejah Jacobs DNP Unavailable [phone] Encounter Details Date Type Department Care Team Description 10/30/2019 Aircraft Maintenance Engineer Report Medical Records [address] [place] [address] Tommy Stacy Social History Tobacco Use Types [...] on filedocumented in this encounter Care Teams Museum Docent Relationship Specialty Start Date End Date Jade Plata MD PCP - General Internal Medicine 04/08/19 04/04/21 Marina Love MD [address] [place] [address] [phone] PCP - General Internal Medicine 04/05/21 10/20/21 [facility], Pcp [address] [place] [address] 129[address] PCP - General Internal Medicine 10/21/21 08/10/22 [facility], Pcp [address] [place] [address] 31489 PCP - General Internal Medicine 08/11/22 Shanna Álvarez MD Specialist Cardiology 02/10/21 Dejah Peoples, DILIP [address] [place] [address] 10951 Specialist Nurse Practitioner Family 02/28/24 documented as of this encounter
--- OUTSIDE RECORDS SUMMARY | 2024-08-23 10:59 | XMS_ITS | Clinical Summary ---
Author Organization [facility] Address [address] [place] [address] Phone Care Team Providers Care Automatic Log Cut Off Sawyer Name Role Phone Cedric Friedman STAINED GLASS GLAZIER HELPER Primary Care Provider Allergies Active Allergy Reactions Criticality Noted Date [...] weeks Allergic rhinitis 12/02/2016 Asthma 03/09/2016 Old FL (myocardial infarction) 03/09/2016 Overview (06/05/2024): NON STEMI 06/28/14 Echo normal / stress test 08/18/14 Follows with [place] [facility] Type 2 diabetes mellitus with cataract 6 Overview (06/05/2024): Dx'd in 1996; Endo @ [facility] Venous insufficiency of both lower extremities 0 03/09/2016 Vitamin D deficiency 03/09/2016 Depression 12/01/2015 Essential hypertension 12/01/2015 Gastroesophageal reflux disease without esophagi tis 12/01/2015 Encounters Date Type Department Care Team Description 08/02/2024 Telephone [facility] [address] [place] [phone] Dejah Peoples NP No Show 07/25/2024 1:17 PM EST - 07/25/2024 11:59 PM EST Hospital Encounter [facility] Ultrasound [address] [place] [phone] Category 3 mammography result with short follow-up interval suggested for probably benign finding Discharge Disposition: Home or Self Care 07/25/2024 12:53 PM EST - 07/25/2024 11:59 PM EST Hospital Encounter [facility] [address] [place] [phone] Category 3 mammography result with short follow-up [...] older (Afluria) 3 years and older 03/18/2016 [employer] SARS-CoV-2 COVID -19, vector-nr, rS-Ad26, preservative free 09/22/2020 [employer] SARS-CoV-2 COVID-19, mRNA, LNP-S, preservative free 07/06/2021 [...] phlebectomy COLONOSCOPY 12/12/2006 PROCEDURE: HISTORICAL COLONOSCOPY; COMMENT: [email or web address]; normal screening exam, not difficult. COLONOSCOPY W/ POLYPECTOMY 12/12/2016 PROCEDURE: PA COLSC FLX W/RMVL OF TUMOR POLYP LESION [...] a Exertional asthma 12/01/2015 DX:Exertional asthma Old FL (myocardial infarction) 03/09/2016 D X:Old FL (myocardial infarction); COMMENT: NON STEMI 06/28/14 / stress test 08/18/14 Venous insufficiency of both lower extremities 03/09/2016 DX:Venous insufficiency of b oth lower extremities; COMMENT: EVLT 2014/ Dr Mohan Benedict Type 2 diabetes mellitus wit h cataract ([facility]/HCC) 03/09/2016 DX:Type 2 diabetes mellitus with cataract (HCC); COMMENT: OU Varicose veins 03/09/2016 DX:Varicose vein s Atrial fibrillation ([facility]) 03/09/2016 DX :Atrial fibrillation (HCC) Photodermatitis 03/09/2016 [...] Info) Description 08/26/2024 7:30 AM EDT Appointment [facility] Ultrasound [address] [place] [phone] 08/26/2024 8:30 AM EDT Appointment [facility] [address] [place] [phone] Health Maintenance Due Date Last Done Comments [...] recommended. Mammo Location: [facility], [address] [place] [address], [address], . -------- FINAL REPORT -------- Dictated By: Marina May Dictated Date: 07/25/2024 14:29 ET Assigned Physician: Marina May Reviewed and Electronically Signed By: Marina May Signed Date: 07/25/2024 14:54 ET Workstation ID: [id number] Transcribed By: Self Edit Transcribed Date: 07/25/2024 [...] recommended. Mammo Location: [facility], [address] [place] [address], [address], . -------- FINAL REPORT -------- Dictated By: Marina May Dictated Date: 07/25/2024 14:29 ET Assigned Physician: Marina May Reviewed and Electronically Signed By: Marina May Signed Date: 07/25/2024 14:54 ET Workstation ID: [id number] Transcribed By: Self Edit Transcribed Date: 07/25/2024 14:34 ET us Cedric Friedman STAINED GLASS GLAZIER HELPER IMG BI PROCEDURES Final Result * (ABNORMAL) [...] recommended. Mammo Location: [facility], [address] [place] [address], [address], . -------- FINAL REPORT -------- Dictated By: Marina May Dictated Date: 07/25/2024 14:29 ET Assigned Physician: Marina May Reviewed and Electronically Signed By: Marina May Signed Date: 07/25/2024 14:54 ET Workstation ID: [id number] Transcribed By: Self Edit Transcribed Date: 07/25/2024 [...] recommended. Mammo Location: [facility], [address] [place] [address], [address], . -------- FINAL REPORT -------- Dictated By: Marina May Dictated Date: 07/25/2024 14:29 ET Assigned Physician: Marina May Reviewed and Electronically Signed By: Marina May Signed Date: 07/25/2024 14:54 ET Workstation ID: [id number] Transcribed By: Self Edit Transcribed Date: 07/25/2024 14:34 ET us Cedric Friedman STAINED GLASS GLAZIER HELPER IMG US PROCEDURES Final Result * DXA [...] normal bone density by WHO criteria. [facility] Department of Internal Medicine recommends using National [...] alternative screening schedule based on ashley Kelly., [facility] [place] July 07, 2011 for patients with osteopenia [...] normal bone density by WHO criteria. [facility] Department of Internal Medicine recommendsusing National Osteoporosis [...] and higher), BMD testingevery 15 years Result [facility] Carito CHAUDHARY IMG DXA PROCEDURES Final Resu lt * Annual BMP Blood Test (09/02/2021) [facility] Annual BMP Blood Test abstracted Result [facility] Provider HEALTH MAINTENANCE Final Result * (ABNORMAL) Hemoglobin A1c (09/02/2021) [facility] Hemoglobin A1C 7.1(A) <=6.5 % Blood Venous blood specimen / Unknown Result [facility] Provider LAB BLOOD ORDERABLES Marianela l Result * Lipid panel (06/21/2021) [facility] LDL/HDL Ratio 2 0 - 4 Triglycerides 66 0 - 150 mg/dL Cholesterol 188 0 - 200 mg/dL HDL 77 >=40 mg/dL LDL Cholesterol 98 0 - 150 mg/dL Blood Venous blood specimen / Unknown Result [facility] Provider LAB BLOOD ORDERABLES Marianela l Result * Urine Albumin Creatinine Ratio (03/31/2021) [facility] Urine Albumin Creatinine Ratio abstracted Result [facility] Provider HEALTH MAINTENANCE Final Result * Hepatitis C Screening (12/06/2017) [facility] Hepatitis C Screening abstracted Result [facility] Provider HEALTH MAINTENANCE Final Result from Last 3 Months or Most Recently Relevant to Health Maintenance Insurance [facility] Member Subscriber Plan / Payer (Ef fective 2021-Present) Name:Mary Miller Relation to Subscriber:Self Name:Mary Miller Payer ID:[id number] Group ID:[id number] Type:Not on file Address: [address] [place] [address] Care Teams Automatic Log Cut Off Sawyer Relationship Specialty Start Date End Date Cedric Friedman FNP [address] [place] [address] PCP - General Family Medicine 07/25/24
--- OUTSIDE RECORDS SUMMARY | 2024-08-23 10:59 | XMS_ITS | Encounter Summary ---
Author Organization [employer] [facility] Address [address] [place] [address] Care Team Providers Care Auto Collision Repair Instructor Name Role Phone Shanna Álvarez MD Unavailable [phone] Marina Love MD Primary Care Provider [phone] [facility], Pcp [facility] Primary Care Provider UnavailDejah Jacobs DNP Unavailable [phone] Encounter Details Date Type Department Care Team Description 09/06/2021 Release of Information Medical Records [address] [place] [address] [facility] Social History Tobacco Use Types Packs/Day [...] on filedocumented in this encounter Care Teams Auto Collision Repair Instructor Relationship Specialty Start Date End Date Marina Love MD [address] [place] [address] [phone] PCP - General Internal Medicine 04/05/21 10/20/21 [facility], Pcp [address] [place] [address] PCP - General Internal Medicine 10/21/21 08/10/22 [facility], Pcp [address] [place] [address]007 PCP - General Internal Medicine 08/11/22 Shanna Álvarez MD Specialist Cardiology 02/10/21 Dejah Peoples, DILIP [address] [place] [address] [phone] Specialist Nurse Practitioner Family 02/28/24 documented as of this encounter
--- OUTSIDE RECORDS SUMMARY | 2024-08-23 10:59 | XMS_ITS | Encounter Summary ---
Author Organization [employer] [facility] Address [address] [place] [address] Care Team Providers Care Resident Inspector Name Role Phone Tiffanie Ding MD Primary Care Provider Un available Jade Plata MD Primary Care Provider Unavail able Shanna Álvarez MD Unavailable [phone] Marina Love MD Primary Care Provider [phone] [facility], Pcp Primary Care Provider Unavailabl e [facility], Pcp Primary Care Provider Unavailabl e Dejah Peoples DNP Unavailable [phone] Encounter Details Date Type Department Care Team Description 12/19/2016 Telephone Gastroenterology - [address] [id number] Qi Abebe MD Social History Tobacco Use [...] on filedocumented in this encounter Care Teams Resident Inspector Relationship Specialty Start Date End Date Tiffanie Ding MD PCP - General Internal Medicine 06/17/1604/07 Jade Plata MD PCP - General Internal Medicine 04/08/19 04/04/21 Marina Love MD [address] [place] [address] PCP - General Internal Medicine 04/05/21 10/20/21 [facility], Pcp [address] [place] [address] 13414 PCP - General Internal Medicine 10/21/21 08/10/22 [facility], Pcp [address] [place] [address] 30535 PCP - General Internal Medicine 08/11/22 Shanna Álvarez MD Specialist Cardiology 02/10/21 Dejah Peoples, DILIP [address] [place] [address] 11240 Specialist Nurse Practitioner Family 02/28/24 documented as of this encounter
--- OUTSIDE RECORDS SUMMARY | 2024-08-23 10:59 | XMS_ITS | Encounter Summary ---
Author Organization [facility] Address [address] [place] [address] Care Team Providers Care Car Salesman Name Role Phone Shanna Álvarez MD Unavailable [phone] Marina Love MD Primary Care Provider [facility], Pcp Primary Care Provider Unavailabl [facility], Pcp [facility] Dejah Peoples DNP Unavailable [phone] Encounter Details Date Type Department Care Team Description 09/03/2021 Telephone Gastroenterology - [place] [address] [facility] [address] [place] [address] PA-C [address] [facility] [address] [place] [address] Social History Tobacco Use Types Packs/Day Years [...] Telephone Encounter - Wendy Hernandez - 09/03/2021 8:53 AM EDT Spoke to the patient and gave lab results. Patient does not have any questions or concerns at this time.\ * Telephone Encounter - Dequan Lane PA-C - 09/03/2021 7:58 AM EDT Please contact patient and let her know that the repeated labs do not demonstrate any anemia. When the stool studies are received, we will be in touch with her in regards to results. documented in this encounter Plan of Treatment Not on file documented as of this encounter Visit Diagnoses Not on filedocumented in this encounter Care Teams Car Salesman Relationship Specialty Start Date End Date Marina Love MD [address] [place], [place] [phone] PCP - General Internal Medicine 04/05/21 10/20/21 [facility], Pcp [address] [place], [place] [phone] PCP - General Internal Medicine 10/21/21 08/10/22 [facility], Pcp [address] [place] [address] PCP - General Internal Medicine 08/11/22 Shanna Álvarez MD Specialist Cardiology 02/10/21 Dejah Peoples DNP [address] [place] [address] Specialist Nurse Practitioner Family 02/28/24 documented as of this encounter
== END 2024-08-23 10:21 | disposition home or self-care (01) ==
PROVIDERS: PCP Nurse Practitioner Family; Visit Provider Nurse Practitioner Family
DX: I10 Essential (primary) hypertension (principal); K21.9 Gastro-esophageal reflux disease without esophagitis

== ENCOUNTER 2024-10-14 09:20 | Outpatient (AMB) | payer OTHER, SELFPAY ==
--- NOTE | 2024-10-14 09:23 | MHC.PC.OV ---
Vital Signs 10/14/24 09:28 10/14/24 09:51 Height 5 ft 8 in Weight 165 lb BMI 25.1 BP 164/74 H 150/80 H Blood Pressure Location Rt brachial Rt brachial Position Sitting Respiration 16 Pulse 63 64 Pulse Source Pulse Oximeter Auscultation Temp 98.0 F Temp Source Oral Pulse Oximetry (%) 98 Oxygen Delivery Method Room Air Intake Visit Reasons: [facility] Discharge Follow-Up Intake Note: patient here for [facility] discharge follow up Acute Care Assistant Required: No Is last menstrual period known: No Post menopausal: No Patient : No Allergies atorvastatin [Lipitor] Allergy (Unknown, Verified 10/14/24 09:41) unknown cephalexin [Keflex] Allergy (Unknown, Verified 10/14/24 09:41) unknown codeine Allergy (Unknown, Verified 10/14/24 09:41) unknown morphine Allergy (Unknown, Verified 10/14/24 09:41) unknown oxycodone [Percocet] Allergy (Unknown, Verified 10/14/24 09:41) unknown Penicillins Allergy (Unknown, Verified 10/14/24 09:41) Unknown Medication List - Last Reconciled 10/14/24 by Cedric Friedman, DOROTHEA albuterol sulfate 90 mcg/actuation 2 puffs inhalation Q6H PRN amlodipine 10 mg PO DAILY 90 days ascorbate calcium (vitamin C) 500 mg PO DAILY 90 days benzonatate 100 mg PO BID PRN blood sugar diagnostic ([employer] Verio test strips) Three times a day FUTURE REFILLS FROM PCP. blood-glucose meter ([employer] Verio Flex Start kit) As directed 3 times a day cholecalciferol (vitamin D3) 25 mcg PO DAILY 90 days cyanocobalamin (vitamin B-12) 500 mcg sublingual DAILY 30 days flash glucose sensor ([employer] 14 Day Sensor kit) every 14 days fluticasone propionate 50 mcg/actuation 1 spray intranasal DAILY insulin glargine (Lantus Solostar U-100 Insulin) 20 units subcut QAM lancets ([employer] Delica Lancets) Three times a day losartan 100 mg PO DAILY 30 days metformin ER 1,000 mg (2 x 500 mg) PO BID 90 days metoprolol tartrate 25 mg PO BID 30 days omeprazole 40 mg (2 x 20 mg) PO DAILY pen needle, diabetic (BD Rosina 2nd Gen Pen Needle) Twice a day rivaroxaban (Xarelto) 20 mg PO QPM sitagliptin phosphate (Januvia) 50 mg PO DAILY 90 days Tobacco use date assessed: 10/14/24 Fall risk assessment: No Falls in past year Last assessed Fall Risk: 10/14/24 Dental Screening Dental Screen Date: 10/14/24 Did you have a dental visit in the last 12 months?: No Did you have a dental problem in the last 6 months where you did not have access to dental care?: No Was dental information given to patient?: Patient has dentist HPI HPI Comments History of Present Illness Details 69-year-old female, accompanied by her , presents for ED discharge follow-up. She was evaluated at [facility] ED for recurrent headache on 08/13/2024 and 10/12/2024. She noted frontal headache. She denied visual disturbances, stiff neck, fever, chills. She noted that she feels same headache when her blood pressure is elevated. Her blood pressures were elevated. Head CT was normal. EKG revealed normal sinus rhythm, no ST-T wave changes to suggest acute ischemia, right bundle-branch block noted, no ectopy. She was diagnosed with hypertension, headache. Her blood pressure remains elevated despite treatment with hydralazine and clonidine at the ED. she was given prescription for clonidine to take until she restart her amlodipine. No documentation as to why the amlodipine was discontinued. CT orbits on 09/28/2024 revealed preseptal cellulitis/periorbital cellulitis and 1.5 cm parotid nodule; Additional smaller nodules also present; Recommend ENT follow-up. Regarding preseptal cellulitis/periorbital cellulitis, she was treated with antibiotics and instructed to follow-up with Ophthalmology outpatient. She was discharged on cefdinir 400 mg every 12 hours, doxycycline 100 mg every 12 hours, and prednisone acetate and moxifloxacin drops. She notes that a week and half ago, she presented to [facility] for facial pain. She was sent to [facility] and was admitted for 3 days for right periorbital cellulitis. She was prescribed antibiotics drops TID in the right eye for 7 days. She states that she was advised to stop taking Amlodipine until she completed the eye drops. She completed the antibiotics eye drops a week ago but resumed taking Amlodipine yesterday. She currently denies headache or facial pain. She notes that she was administered medications in the ED on 08/13/2025 and 08/14/2024. She was sent home on Clonidine once daily which she completed. She notes that she maintains a low sodium diet. She drinks a cup of coffee in the morning and afternoon. She is active but does not exercise. No acute symptoms at this time. Interpretation by the patient's per patient's preference. 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 Family/Other Diabetes Mother Mental health disorder Social History Household Members: Spouse Housing: Apartment Are you a primary medication care manager to a significant other at home: No Do you presently have visiting nurse or other home services: No Alcohol intake: current Alcohol intake frequency: does not drink Patient Tobacco Use Status: Never used Tobacco e-Cigarette/Vaping Use: Never Used Second Hand Smoke Exposure: No service: No Current occupational status: disabled Cognitive needs: No Hearing needs: No Vision needs: No Questionnaire PHQ-9 Over the last 2 weeks, how often have you been bothered by any of the following problems? 4. Feeling tired or having little energy: several days Source: Developed by Drs. Rob Johnson, Karla Washington, Colin Garcia and colleagues, with an educational lele from [employer]. Thrive Questionnaire Date Thrive assessed: 07/24/24 I am a: Patient What is your living situation today?: I have a steady place to live Within the past 12 months, did the food you bought not last and you didn't have the money to get more?: Sometimes True Within the past 12 months, did you worry whether your food would run out before you got money to buy more?: Sometimes True Do you have trouble paying for medicines?: No Do you have trouble getting transportation to medical appointments?: No Do you have trouble paying your heating and electricity bill?: No Do you have trouble taking care of your child, family member or friend?: No Do you have trouble with day-to-day activities such as bathing, preparing meals, shopping, managing finances, etc.?: Yes Are you currently unemployed and looking for a job?: No Are you interested in more education?: I choose not to answer this question Currently or been in a relationship where the following occur: I choose not to answer THRIVE Score: 2 JULIAN-7 AMB Questionnaire JULIAN-7 Date JULIAN - 7 assessed: 04/10/24 Source: Developed by Drs. Rob Johnson, Karla Washington, Colin Garcia and colleagues, with an educational lele from [employer]. Review of Systems Const Details: Const Denies chills, Denies fatigue, Denies fever(s), Denies headache(s) and Denies weakness ENT Denies dizziness and Denies headache(s) Card Denies chest pain, Denies lightheadedness, Denies dyspnea and Denies other (Palpitations) Resp Denies cough, Denies dyspnea, Denies wheezing and Denies other ( shortness of breath) GI Denies abdominal pain, Denies melena, Denies hematochezia, Denies change in bowel habits, Denies dyspepsia and Denies nausea Denies hematuria and Denies dysuria Musc Denies abnormal gait, Denies myalgias, Denies arthralgias, Denies numbness and Denies tingling Skin/Breast Denies rash, Denies unusual bruising and Denies wounds Neuro Denies abnormal gait, Denies dizziness, Denies headache(s), Denies memory loss, Denies numbness, Denies Sensory deficit (Neuro), Denies tingling and Denies weakness Psych Denies anxiety, Denies depression, Denies memory loss Endo Denies cold intolerance, Denies fatigue, Denies heat intolerance, Denies polydipsia and Denies polyuria Aller/Immun Denies wheezing Physical exam (Primary Care) Vital Signs: Last Vital Signs Temp 98.0 F 10/14/24 09:28 Pulse 64 10/14/24 09:51 Resp 16 10/14/24 09:28 BP 150/80 H 10/14/24 09:51 Pulse Ox 98 10/14/24 09:28 Oxygen Delivery Method Room Air 10/14/24 09:28 BMI result Body Mass Index 25.1 Tobacco/Smoking Status: Tobacco use Status Tobacco use date assessed 10/14/24 10/14/24 09:32 Patient Tobacco Use Status Never used Tobacco 10/14/24 09:25 e-Cigarette/Vaping Use Never Used 10/14/24 09:25 Thrive Assessment: Date of Thrive Assessment Date Thrive assessed 07/24/24 10/14/24 09:25 Currently or been in a relationship where the following occur: I choose not to answer Const Other: General: no acute distress and well developed Nutritional Appearance: well nourished Orientation/consciousness: patient oriented x3 HENMT Head: Yes normocephalic and Yes atraumatic Eyes General: appearance normal, both eyes and all related structures Pupils: Equal, round and reactive pupils present EOM: EOMs intact bilaterally Resp Effort & Inspection: normal respiratory effort Auscultation: clear to auscultation bilaterally Cardio Rate: regular rate Rhythm: regular rhythm Heart sounds: S1 normal heart sound present, S2 normal heart sound present, no gallops, no murmurs and no rubs GI Palpation (GI): No Abdominal aortic bruit present, Soft to palpation, nontender, No hepatosplenomegaly present and No Rebound tenderness present Auscultation: normal bowel sounds General: Yes no CVA tenderness Back/Spine/Pelvis Back: no CVA tenderness Cervical Spine: cervical ROM normal and No Cervical spine tenderness Thoracic/Lumbar Spine: thoraco-lumbar ROM normal, No pain with thoraco-lumbar ROM, No thoracic spinal tenderness and No lumbar spinal tenderness Extrem General: Yes normal to inspection, No edema and No calf tenderness Skin General: warm and dry. Normal skin color. Normal skin turgor Neuro General: patient oriented x3, gait normal and no focal neuro deficit Cranial nerves: Yes Equal, round and reactive pupils present Cognition (Neuro): normal cognition Gait exam (Neuro): Normal gait present Sensory Exam: No Sensory deficit (Neuro) Psych Appearance: grossly normal Affect: normal affect Attitude: cooperative Thought process: Normal thought process present Coding Level of Care Code Est Pt Level 4 (36148) Diagnoses Essential hypertension I10 Hypertension type: essential hypertension Preseptal cellulitis L03.213 Periorbital cellulitis of right eye L03.213 Parotid nodule K11.8 Assessment & Plan Assessment & Plan (1) HTN (hypertension): Code(s): I10 - Essential (primary) hypertension Category: Medical Qualifiers: Hypertension type: essential hypertension Qualified Code(s): I10 - Essential (primary) hypertension Plan: Resting blood pressure is 150/80, above goal of less than 130/80. Losartan changed from 100 mg daily to 50 mg twice daily; advised to take as prescribed. Continue to take amlodipine 10 mg daily and metoprolol 25 mg twice daily. Routine exercise and low-sodium diet encouraged. Advised to significantly cut down or avoid caffeine intake. Follow-up as planned next month for hypertension and diabetes. Return sooner with symptoms or concerns. Verbalized understanding and agreed with treatment plan. (2) Preseptal cellulitis: Code(s): L03.213 - Periorbital cellulitis Category: Medical Plan: CT orbits on 09/28/2024 revealed preseptal cellulitis/periorbital cellulitis. Resolved. Referred to Ophthalmology as recommended. (3) Periorbital cellulitis of right eye: Code(s): L03.213 - Periorbital cellulitis Category: Medical Plan: Plan as above. (4) Parotid nodule: Code(s): K11.8 - Other diseases of salivary glands Category: Medical Plan: CT orbits on 09/28/2024 revealed preseptal cellulitis/periorbital cellulitis and 1.5 cm parotid nodule; Additional smaller nodules also present. Referred to ENT as recommended. Orders: Referrals Ear/Nose/Throat Referral K11.8 - Other diseases of salivary glands Ophthalmology Referral L03.213 - Periorbital cellulitis Medications: New losartan 50 mg PO BID 30 days 60 tabs 3RF Discontinued losartan Discontinued Reason: Doctor's Order 100 mg PO DAILY 30 days 90 tabs 1RF E11.9 - Type 2 diabetes mellitus without complications, Z79.4 - intermediate (current) use of insulin
[2024-10-14 09:28] VITALS: BP 164/74; PULSE 63; RESP 16; TEMP 36.7; O2SAT 98; BMI 25.1
[2024-10-14 09:51] VITALS: BP 150/80; PULSE 64
--- OUTSIDE RECORDS SUMMARY | 2024-10-14 10:21 | XMS_ITS | Encounter Summary ---
Author Organization [employer] [facility] Address [address] [place] [address] Care Team Providers Care Resaw Machine Operator Name Role Phone Tiffanie Ding MD Primary Care Provider Un available Jade Plata MD Primary Care Provider Unavail able Shanna Álvarez MD Unavailable [phone] Marina Love MD Primary Care Provider [phone] Community, Pcp Primary Care Provider Unavailabl e Community, Pcp Primary Care Provider Unavailabl e Dejah Peoples DNP Unavailable [phone] Encounter Details Date Type Department Care Team Description 04/01/2019 [facility] Medical Records [address] [place] [id number] Abstract, Provider Social History Tobacco Use Types [...] on filedocumented in this encounter Care Teams Resaw Machine Operator Relationship Specialty Start Date End Date Tiffanie Ding MD PCP - General Internal Medicine 06/17/1604/07 Jade Plata MD PCP - General Internal Medicine 04/08/19 04/04/21 Marina Love MD [address] [place] [address] [id number] PCP - General Internal Medicine 04/05/21 10/20/21 [facility], Pcp [address] [place] [address] 18708 PCP - General Internal Medicine 10/21/21 08/10/22 [facility], Pcp [address] [place] [address] 41906 PCP - General Internal Medicine 08/11/22 Shanna Álvarez MD Specialist Cardiology 02/10/21 Dejah Peoples, DILIP [address] [place] [address] Specialist Nurse Practitioner [facility] 02/28/24 documented as of this encounter
--- OUTSIDE RECORDS SUMMARY | 2024-10-14 10:21 | XMS_ITS | Encounter Summary ---
Author Organization [employer] [facility] Address [address] [place] [address] Care Team Providers Care Long Distance Billing Operator Name Role Phone Tiffanie Ding MD Primary Care Provider Un available Jade Plata MD Primary Care Provider Unavail able Shanna Álvarez MD Unavailable [phone] Marina Love MD Primary Care Provider [phone] Community, Pcp Primary Care Provider Unavailabl e Community, Pcp Primary Care Provider Unavailabl e Dejah Peoples DNP Unavailable [phone] Reason for Visit * Reason Comments E-prescribe Rx Request Encounter Details Date Type Department Care Team Description 03/23/2019 Refill Adult Medicine [address] [id number] Chad Gore PA-C [address] [place] [address] [id number] E-prescribe Rx Request Social History Tobacco Use [...] N/A Patients current insurance carrier is: Payor: [employer] FFS / Plan: [employer] ALLIANCE / Product Type: MEDICAID RISK documented in this encounter Plan of Treatment Not on file documented as of this encounter Visit Diagnoses Not on filedocumented in this encounter Care Teams Long Distance Billing Operator Relationship Specialty Start Date End Date Tiffanie Ding MD PCP - General Internal Medicine 06/17/1604/07 Jade Plata MD PCP - General Internal Medicine 04/08/19 04/04/21 Marina Love MD [address] [place] [id number] PCP - General Internal Medicine 04/05/21 10/20/21 [facility], Pcp [address] [place] [address] PCP - General Internal Medicine 10/21/21 08/10/22 [facility], Pcp [address] [place], [place] [phone] PCP - General Internal Medicine 08/11/22 Shanna Álvarez MD Specialist Cardiology 02/10/21 Dejah Peoples, DILIP [address] [place] [address] Specialist Nurse Practitioner [facility] 02/28/24 documented as of this encounter
--- OUTSIDE RECORDS SUMMARY | 2024-10-14 10:22 | XMS_ITS | Encounter Summary ---
Author Organization [employer] [facility] Address [address] [place] [address] Care Team Providers Care College Recruiter Name Role Phone Tiffanie Ding MD Primary Care Provider Un available Jade Plata MD Primary Care Provider Unavail able Shanna Álvarez MD Unavailable [phone] Marina Love MD Primary Care Provider [phone] Community, Pcp Primary Care Provider Unavailabl e Community, Pcp Primary Care Provider Unavailabl e Dejah Peoples DNP Unavailable [phone] Reason for Visit * Reason Comments E-prescribe Rx Request Encounter Details Date Type Department Care Team Description 11/18/2018 Refill Adult Medicine [address] [address] Tiffanie Ding MD E-prescribe Rx Request Social [...] N/A Patients current insurance carrier is: Payor: [employer] FFS / Plan: [employer]IANCE / Product Type: MEDICAID RISK documented in this encounter Plan of Treatment Not on file documented as of this encounter Visit Diagnoses Not on filedocumented in this encounter Care Teams College Recruiter Relationship Specialty Start Date End Date Tiffanie Ding MD PCP - General Internal Medicine 06/17/1604/07 aJde Plata MD PCP - General Internal Medicine 04/08/19 04/04/21 Marina Love MD [address] [place] [address] PCP - General Internal Medicine 04/05/21 10/20/21 [facility], Pcp [address] [place], [place] [phone] PCP - General Internal Medicine 10/21/21 08/10/22 [facility], Pcp [address] [place] [address] PCP - General Internal Medicine 08/11/22 Shanna Álvarez MD Specialist Cardiology 02/10/21 Dejah Peoples DNP [address] [place] [address] Specialist Nurse Practitioner Family 02/28/24 documented as of this encounter
--- OUTSIDE RECORDS SUMMARY | 2024-10-14 10:22 | XMS_ITS | Encounter Summary ---
Author Organization [employer] [facility] Address [address] [place] [address] Care Team Providers Care Fuel Efficient Aircraft Designer Name Role Phone Shanna Álvarez MD Unavailable [phone] Community, Pcp Primary Care Provider Dejah Elliott DNP Unavailable [phone] Encounter Details Date Type Department Care Team Description 01/04/2024 Hospital Medical Records [address] [place] [address] [facility] Social History Tobacco Use Types Packs/Day Years [...] on filedocumented in this encounter Care Teams Fuel Efficient Aircraft Designer Relationship Specialty Start Date End Date Community, Pcp PCP - General Internal Medicine 08/11/22 Shanna Álvarez MD Specialist Cardiology 02/10/21 Dejah Peoples DNP Specialist Nurse Practitioner Family 02/28/24 documented as of this encounter
--- OUTSIDE RECORDS SUMMARY | 2024-10-14 10:22 | XMS_ITS | Encounter Summary ---
Author Organization [facility] Address [address] [place] [address] Care Team Providers Care Ultrasound Technol Name Role Phone Shanna Álvarez MD Unavailable [phone] Marina Love MD Primary Care Provider Community, Pcp Primary Care Provider Unavailabl e [facility], Pcp [facility] Dejah Peoples DNP Unavailable [phone] Reason for Visit * Reason Comments E-prescribe Rx Request Encounter Details Date Type Department Care Team Description 10/15/2021 Refill Gastroenterology - [place] [address] [address] PA-C 175 [facility] [address] [place] [address] E-prescribe Rx Request Social History Tobacco Use [...] suspected to have Coronavirus/COVID-19? No / Unsure 10/08/2021 1:46 PM EDT documented as of this encounter Plan of Treatment Not on file documented as of this encounter Visit Diagnoses Not on filedocumented in this encounter Care Teams Ultrasound Technol Relationship Specialty Start Date End Date Marina Love MD [address] [place] [address] PCP - General Internal Medicine 04/05/21 10/20/21 [facility], Pcp [address] [place] [address] PCP - General Internal Medicine 10/21/21 08/10/22 [facility], Pcp [address] [place], [place] [phone] PCP - General Internal Medicine 08/11/22 Shanna Álvarez MD Specialist Cardiology 02/10/21 Dejah Peoples, DILIP [address] [place] [address] Specialist Nurse Practitioner Family 02/28/24 documented as of this encounter
--- OUTSIDE RECORDS SUMMARY | 2024-10-14 10:22 | XMS_ITS | Encounter Summary ---
Author Organization [employer] [facility] Address [address] [place] [address] Care Team Providers Care Bread Oven Operator Name Role Phone Sony Milton MD Primary Care Provider Unavailabl e Aneudy Ness MD Primary Care Provider [phone] Tiffanie Ding MD Primary Care Provider Un available Jade Plata MD Primary Care Provider Unavail able Shanna Álvarez MD Unavailable [phone] Marina Love MD Primary Care Provider [phone] Community, Pcp Primary Care Provider Unavailabl e Community, Pcp Primary Care Provider Unavailabl e Dejah Peoples DNP Unavailable [phone] Encounter Details Date Type Department Care Team Description 10/31/2012 [facility] Medical Records [address] [place] [address] Abstract, Provider Social History Tobacco Use Types [...] on filedocumented in this encounter Care Teams Bread Oven Operator Relationship Specialty Start Date End Date Sony Milton MD PCP - General Cardiovascular Disease 04/30/14 10/11/15 Aneudy Ness MD [address] [place] [address] PCP - General Internal Medicine 10/12/15 06/16/16 Tiffanie Ding MD [address] [place] [address] PCP - General Internal Medicine 06/17/16 04/07/19 Jade Plata MD [address] [place] [address] PCP - General Internal Medicine 04/08/19 04/04/21 Marina Love MD [address] [place] [address] PCP - General Internal Medicine 04/05/21 10/20/21 [facility], Pcp [address] [place] [address] PCP - General Internal Medicine 10/21/21 08/10/22 [facility], Pcp [address] [place], [place] [phone] PCP - General Internal Medicine 08/11/22 Shanna Álvarez MD [address] [place] [address] Specialist Cardiology 02/10/21 Dejah Peoples, DILIP [address] [place] [address] Specialist Nurse Practitioner Family 02/28/24 documented as of this encounter
--- OUTSIDE RECORDS SUMMARY | 2024-10-14 10:22 | XMS_ITS | Encounter Summary ---
Author Organization [employer] [facility] Address [address] [place] [address] Care Team Providers Care Hot Mill Worker Name Role Phone Jade Plata MD Primary Care Provider Unavail able Shanna Álvarez MD Unavailable [phone] Marina Love MD Primary Care Provider [phone] [facility], Pcp Primary Care Provider Unavailabl e [facility], Pcp Primary Care Provider UnavailDejah Jacobs DNP Unavailable [phone] Encounter Details Date Type Department Care Team Description 01/07/2021 Hospital Medical Records [address] [place] [address] Karis Christie NP Social History Tobacco Use [...] on filedocumented in this encounter Care Teams Hot Mill Worker Relationship Specialty Start Date End Date Jade Plata MD PCP - General Internal Medicine 04/08/19 04/04/21 Marina Love MD [address] [place] [address] [phone] PCP - General Internal Medicine 04/05/21 10/20/21 [facility], Pcp [address] [place] [address] PCP - General Internal Medicine 10/21/21 08/10/22 [facility], Pcp [address] [place] [address] PCP - General Internal Medicine 08/11/22 Shanna Álvarez MD Specialist Cardiology 02/10/21 Dejah Peoples, DILIP [address] [place] [address] [phone] Specialist Nurse Practitioner Family 02/28/24 documented as of this encounter
--- OUTSIDE RECORDS SUMMARY | 2024-10-14 10:22 | XMS_ITS | Encounter Summary ---
Author Organization [facility] Address [address] [place] [address] Care Team Providers Care Rn Office Name Role Phone Jade Plata MD Primary Care Provider Unavail able Shanna Álvarez MD Unavailable [phone] Marina Love MD Primary Care Provider [phone] [facility], Pcp Primary Care Provider Unavailabl e [facility], Pcp Primary Care Provider Unavailabl e Dejah Peoples DNP Unavailable [phone] Reason for Visit * Reason Onset Date Comments refill request 02/03/2021 Encounter Details Date Type Department Care Team Description 02/03/2021 Refill Adult Medicine [address] [address] Jade Plata MD refill request Social History [...] N/A Patients current insurance carrier is: Payor: [employer] FFS / Plan: [employer] [facility] / Product Type: MEDICAID RISK documented in this encounter Plan of Treatment Not on file documented as of this encounter Visit Diagnoses Not on filedocumented in this encounter Care Teams Rn Office Relationship Specialty Start Date End Date Jade Plata MD PCP - General Internal Medicine 04/08/19 04/04/21 Marina Love MD [address] [place] [address] PCP - General Internal Medicine 04/05/21 10/20/21 [facility], Pcp [address] [place] [address] PCP - General Internal Medicine 10/21/21 08/10/22 [facility], Pcp [address] [place] [address] PCP - General Internal Medicine 08/11/22 Shanna Álvarez MD Specialist Cardiology 02/10/21 Dejah Peoples, DILIP [address] [place] [address] Specialist Nurse Practitioner Family 02/28/24 documented as of this encounter
--- OUTSIDE RECORDS SUMMARY | 2024-10-14 10:22 | XMS_ITS | Clinical Summary ---
Author Organization [facility] Address [address] [place] [address] Care Team Providers Care Notch Grinder Name Role Phone Shanna Álvarez MD Unavailable [phone] [facility], Pcp Primary Care Provider UnavailDejah Jacobs DNP Unavailable [phone] Allergies Active Allergy Reactions Severity Noted Date Comments Codeine 03/09/2016 Reaction not mentioned Cephalexin Monohydrate-Polysorbate 80 03/09/2016 Reaction not mentioned Kiwi Extract 03/09/2016 Reaction not mentioned Atorvastatin 03/09/2016 Reaction not mentioned Morphine 03/09/2016 No allergy Penicillins 12/01/2015 Apap-Fd&C Red #40 Al Balderrama-Oxycodone 12/01/2015 Medications Medication Sig Dispensed Refills Start Date End Date Status aspirin 81 MG tablet Take 81 mg by mouth daily. 0 Active SOLIQUA 100-33 UNT-MCG/ML Solution Pen-injector Inject 13 Units into the skin 2 times daily. 0 09/13/2020 Active famotidine (PEPCID) 20 MG tablet Take 1 tablet by mouth at bedtime. 60 tablet 5 05/31/2021 Active Cholecalciferol (Vitamin D3) 25 MCG (1000 UT) Cap Take 1 capsule by mouth daily. 0 05/06/2021 Active B-12 Microlozenge 500 MCG SL Tab Take 1 tablet by mouth daily. 0 04/26/2021 Active olmesartan (BENICAR) 40 MG tablet Take 1 tablet by mouth at bedtime for 360 days. 30 tablet 11 08/04/2021 Active FreeStyle Lancets Misc Use to test blood sugar 2 times daily 200 Each 1 09/13/2021 Active Glucose Blood (FREESTYLE LITE) Strip Use to test twice daily 200 Strip 1 09/13/2021 Active fluticasone (Flonase) 50 MCG/ACT nasal spray 2 Sprays by Nasal route daily. 15.8 mL 5 09/13/2021 Active pantoprazole (PROTONIX) 40 MG tabletIndications:[place] stroesophageal reflux disease without esophagitis,[place] (myocardial infarction) Take 1 Tablet by mouth daily. 90 Tablet 1 09/13/2021 Active ALBUTEROL SULFATE (ProAir HFA) 108 (90 Base) MCG/ACT Aero Soln Inhale 2 Puffs into the lungs every 6 hours as needed for Cough, Wheezing or Shortness of Breath. 8.5 g 5 09/13/2021 Active metformin (GLUCOPHAGE-XR) 500 MG 24 hr tablet TAKE 2 TABLETS BY MOUTH TWICE A DAY 360 Tablet 1 09/20/2021 Active metoprolol (LOPRESSOR) 25 MG tablet TAKE 1 TABLET BY MOUTH TWICE A DAY 180 Tablet 1 09/20/2021 Active Ascorbic Acid (Vitamin C) 500 MG Chew Tab TAKE 1 TABLET BY MOUTH DAILY. TAKE WITH IRON 30 Tablet 5 10/15/2021 Active ferrous sulfate 325 (65 Fe) MG tablet TAKE 1 TABLET BY MOUTH EVERY DAY 90 Tablet 4 10/23/2023 Active Apixaban 5 MG Tab Take 1 Tablet by mouth 2 times daily. 0 Active Active Problems Patient Care Coordination No te Formatting of this note is d ifferent from the original. Checking Your Blood Sugars Please check your blood sugars every day. Please check your sugars at the following times of day: before breakfast Your Blood Sugar Goals Pre Meal: 90-130 2 hours after meals: 110-160 Bedtime: 110-150 Use the Results ?? Bring your glucometer to every appointment ?? Write your fingerstick blood sugars down on a log sheet or record book. Bring them to your appointment ?? Look for patterns in the numbers. The results help you and your provider make decisions about your diabetes treatment plan. Your Results and your Goals Your Result / Date of Completion Your Goal / How Often to Assess Component Value Date HGBA1C 8.0 12/10/2015 Less than 7% --- 2-4 times per year BP Readings from Last 1 Encounters: 12/15/15 122/88 Less than 140/90 --- once per year Component Value Date MALBCR 4.1 12/10/2015 Less than 30 --- once per year Component Value Date LDL 70 12/10/2015 Less than 100 --- once per year Wt Readings from Last 1 Encounters: 12/15/15 189 lb 8 oz (85.957 kg) Your goal weight by next visit: 170lbs --- reassess 2-4 times a year Health Maintenance Due Topic Date Due ? ? Dtap/tdap/td (#1 - Tdap) 01/18/1967 ? ? Diabetes: Annual Eye Exam 01/18/1974 ? ? Diabetes: Annual Foot Exam 01/18/1974 ? ? Diabetes: Annual Care Plan 01/18/1974 ? ? Pneumovax For High Risk Patients (1) 01/18/1974 ? ? Pap Smear 01/18/1977 ? ? Baseline Health Exam 40-64 1996 ? ? Mammogram 1996 ? ? Hepatitis C Screening 01/18/2006 ? ? Colon Cancer Screening 01/18/2006 Your Action Plan Check blood glucose as directed and write down all results. Contact me if you experience any barriers to care such as inability to purchase your medication, difficulty getting to your appointments or difficulty understanding your care plan When to Call your Healthcare Provider If your blood sugar falls below 70 and you do not know why or you become unconscious If you are sick and unable to take liquids because or nausea or vomiting If you have a fever over 101 If your blood sugar is 300 or higher on greater than 3 separate occasions during the same week If you are just unsure what to do Educational Resources [place] Diabetes Association (www.diabetes.org) Centers for Disease Control and Prevention (www.cdc.gov/diabetes) This care plan was created in collaboration with Mary Miller on 12/15/2015 Problem Noted Date Atypical chest pain 05/19/2021 Bruit of right carotid artery 05/19/2021 Pulsatile neck mass 02/03/2020 Overview: Follows with cardiovascular, they referred her to vascular and also ordered a carotid artery ultrasound they believe it is a tortuous carotid artery. 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 Repeat sigmoidoscopy 6-8 weeks Allergic rhinitis 12/02/2016 [place] (myocardial infarction) 6 Overview: NON STEMI 06/28/14 Echo normal / stress test 08/18/14 Follows with [place] cardiology Venous insufficiency of both lower extre mities 03/09/2016 Type 2 diabetes mellitus with cataract 0 03/09/2016 Overview: Dx'd in 1996; Endo @ [facility] Vitamin D deficiency 03/09/2016 Asthma 03/09/2016 Essential hypertension 12/01/2015 Gastroesophageal reflux disease without esophagitis 12/01/2015 Depression 12/01/2015 Low ferritin Abnormal iron saturation Resolved Problems Problem Noted Date Resolved Date Enlarged parotid gland 10/23/2018 0 Varicose veins 03/09/2016 07/08/2021 Atrial fibrillation 03/09/2016 05/06/2019 Photodermatitis 03/09/2016 02/03/2020 Diabetes type 2, uncontrolled 12/01/2015 Hyperlipidemia 12/01/2015 12/02/2016 Exertional asthma 12/01/2015 06/17/2016 Immunizations Name Administration Dates Next Due COVID-19 (Oversi AND Oversi) 09/22/2020 COVID-19 (Pfizer) 07/06/2021 Influenza (> 6 Months) 03/18/2016 Influenza Vaccine-preservati ve Free-quadrivalent 4 Years 06/11/2020,04/25/2019 Influenza Vaccine-quadrivalent 4 Years Plus 08/2017,02/21/2017 Influenza vaccine high dose age 65 and over 03/19 Pneumoccoccal(Adult) Polysaccharide PPSV23 03/18 Pneumococcal Conjugate PCV-13 07/08/2021 Tdap 08/12/2014 Family History Medical History Relation Name Comments CA Breast Aunt m ? age Diabetes Brother 2 epilepsy Cancer of the Lung Father ? mets to brain Alzheimers Disease Mother Relation Name Status Comments Aunt m ? age Alive Brother 1 (Age 29) Brother 2 Father (Age 74) Mother (Age 82) Social History Tobacco Use Types Packs/Day Years Used Date Smoking Tobacco: Never Smokeless Tobacco: Never Tobacco Cessation:Counseling Given: No Alcohol Use Standard Drinks/Week Comments No 0 (1 standard drink = 0.6 oz pur e alcohol) Sex Assigned at Date Recorded Not on file Job Start Date Occupation Industry Not on file Not on file Not on file Last Filed Vital Signs Vital Sign Reading Time Taken Comments Blood Pressure 120/78 09/13/2021 1:14 PM EDT Pulse 66 09/13/2021 1:14 PM EDT Temperature 36.2 ??C (97.1 ??F) 09/02/2021 10:48 AM E DT Respiratory Rate 16 06/08/2021 9:27 AM EST Oxygen Saturation 99% 04/09/2021 10:23 AM EDT Inhaled Oxygen Concentration - - Weight 77 kg (169 lb 12.8 oz) 09/13/2021 1:14 PM EDT Height 172.7 cm (5' 8 ) 09/02/2021 10:48 AM EDT Body Mass Index 25.82 09/02/2021 10:48 AM EDT Plan of Treatment Health Maintenance Due Date Last Done Comments SHINGLES VACCINE (1 of 2) 01/18/2006 COLON CANCER SCREEN WITH STO OL CARD 08/15/2019 08/15/2018, 04/10/2017, 12/12/2016, Additional history exists DIABETES: ANNUAL FOOT EXAM 06/11/202106/11 (Completed), 04/11/2019 (Completed), 03/21/2018, Additional history exists DIABETES: ANNUAL EYE EXAM 11/17/20212020 (External Completion of test per patient (Patient reports normal results)), 07/11/2019 (External Completion of test per patient (Patient reports normal results)), 07/11/2019, Additional history exists DIABETES: BLOOD SUGAR CONTRO L TEST (HGBA1C) 12/03/2021 09/02/2021, 06/21/2021, 03/31/2021, Additional history exists DEPRESSION SCREEN 02/09/2022 02/09/2021 (Completed) FALL RISK ASSESSMENT 02/09/2022 02/09/2021 (Complete d) DIABETES: ANNUAL URINE PROTE IN TEST (MICROALBUMIN) 03/31/2022 03/31/2021, 06/16/2020, 04/11/2019, Additional history exists DIABETES/HEART DISEASE: OMER LOPES CHOLESTEROL (LDL) 06/21/2022 06/21/2021, 03/31/2021, 05/20/2020 (External Completion), Additional history exists PNEUMOCOCCAL VACCINE (3 - PP SV23 or PCV20) 07/08/2022 07/08/2021, 03/18/2015 MAMMOGRAM 10/08/2022 10/08/2021, 07/20 (External Completion), 08/04/2020, Additional history exists BONE DENSITY SCREENING 10/09/2023 10/08/2021, 2015 Covid-19 Vaccine (3 - 2022-2 4 season) 2024 07/06/2021, 09/22/2020 BMI CHECK/ADVISE 06/19/2024 04/05/2021, , 11/03/2020, Additional history exists DEPRESSION SCREENING/FOLLOWUP 06/19/2024, 02/09/2021 (Completed), 02/14/2020, Additional history exists DTAP/TDAP/TD (2 - Td or Tdap) 08/12/2024 08/12/2014 INFLUENZA (Season Ended) 2025 021, 06/11/2020 (Completed), 06/11/2020, Additional history exists HEPATITIS C SCREENING Completed 12/06/2017 Care Teams Notch Grinder Relationship Specialty Start Date End Date [facility], Pcp PCP - General Internal Medicine 08/11/22 Shanna Álvarez MD Specialist Cardiology 02/10/21 Dejah Peoples DNP Specialist Nurse Practitioner Family 02/28/24
--- OUTSIDE RECORDS SUMMARY | 2024-10-14 10:22 | XMS_ITS | Clinical Summary ---
Author Organization [employer] Address [address] [facility] 7[address] [place] [address] Care Team Providers Care Golf Coach Name Role Phone Unavailable Primary Care Provider [...] Mass Index - - Plan of Treatment Health Maintenance Due Date Last Done Comments CT Colonography 1956 Colonoscopy 1956 Colorectal Cancer Screening 1956 Depression Screening 1956 FIT DNA/Cologuard 1956 FIT 1956 FOBT 1956 Lipid Panel 1956 SDOH Screening 1956 Sigmoidoscopy 1956 Alcohol/Substance Use Screening 1968 Hepatitis C Screening 01/18/1974 Zoster Vaccines (1 of 2) 01/18/2006 RSV Patients and Patients Aged 60 years or older (1 - Risk 60-74 years 1-dose series) 2016 Dental X-Ray: Full Mouth 01/05/2020 01/03/2017 Dental Oral Exam 10/06/2023 04/05/2023, 03/2019, 06/26/2018, Additional history exists Dental Prophylaxis 10/06/2023 04/05/2023, 1 06/29/2018, 05/19/2017, Additional history exists COVID-19 Vaccine ( season) 2024 03/21/2023, 07/06/2021, 09/22/2020 Dental X-Ray: Bitewings 04/06/2024 04/05/20, 06/26/2018, 01/03/2017, Additional history exists Tobacco Screening 08/08/2024 08/08/2023 DTaP/Tdap/Td Vaccines (2 - Td or Tdap) 08/12/2024 08/12/2014 Pneumococcal Vaccine: 50+ Years (3 of 3 - PCV20 or PCV21) 07/08/2026 07/08/2021, 03/18/2015 Influenza Vaccine Completed 07/19/2024, , 03/14/2023, Additional history exists HIB Vaccines Aged Out [...] Recently Relevant to Health Maintenance Insurance DENTAL - [employer]
--- OUTSIDE RECORDS SUMMARY | 2024-10-14 10:22 | XMS_ITS | Encounter Summary ---
Author Organization [facility] Address [address] [place] [address] Care Team Providers Care Vacuum Repairer Name Role Phone Jade Plata MD Primary Care Provider Unavail able Shanna Álvarez MD Unavailable Marina Love MD Primary Care Provider [phone] [facility], Pcp Primary Care Provider Unavailabl e [facility], Pcp Primary Care Provider Unavailabl e Dejah Peoples DNP Unavailable [phone] Encounter Details Date Type Department Care Team Description 09/13/2020 Orders Only Adult Medicine [address] [address] Jade Plata MD Type 2 diabetes mellitus [...] (HCC) documented in this encounter Care Teams Vacuum Repairer Relationship Specialty Start Date End Date Jade Plata MD PCP - General Internal Medicine 04/08/19 04/04/21 Marina Love MD [address] [place] [address] PCP - General Internal Medicine 04/05/21 10/20/21 [facility], Pcp [address] [place] [address] PCP - General Internal Medicine 10/21/21 08/10/22 [facility], Pcp [address] [place], [place] [phone] PCP - General Internal Medicine 08/11/22 Shanna Álvarez MD Specialist Cardiology 02/10/21 Dejah Peoples, DILIP [address] [place] [address] Specialist Nurse Practitioner Family 02/28/24 documented as of this encounter
--- OUTSIDE RECORDS SUMMARY | 2024-10-14 10:22 | XMS_ITS | Encounter Summary ---
Author Organization [employer] Address [address] [place] [address] Care Team Providers Care Door To Door Selling Agent Name Role Phone Unavailable Primary Care Provider Unavailabl e Encounter Details Date Type Department Care Team (Latest Contact Info) Description 06/26/2018 Abstract [facility] CONVERSIONS Dental, Provider, DDS Social History [...]
--- OUTSIDE RECORDS SUMMARY | 2024-10-14 10:22 | XMS_ITS | Encounter Summary ---
Author Organization [facility] Address [address] [place] [address] Care Team Providers Care Epidemiology Intern Name Role Phone Tiffanie Ding MD Primary Care Provider Un available Jade Plata MD Primary Care Provider Unavail able Shanna Álvarez MD Unavailable [phone] Marina Love MD Primary Care Provider [phone] [facility], Pcp Primary Care Provider Unavailabl e [facility], Pcp Primary Care Provider Unavailabl e Dejah Peoples DNP Unavailable [phone] Encounter Details Date Type Department Care Team Description 08/02/2018 [facility] Medical Records [address] [place] [address] Social History Tobacco Use Types Packs/Day Years [...] on filedocumented in this encounter Care Teams Epidemiology Intern Relationship Specialty Start Date End Date Tiffanie Ding MD PCP - General Internal Medicine 06/17/1604/07 Jade Plata MD PCP - General Internal Medicine 04/08/19 04/04/21 Marina Love MD [address] [place] [address] [id number] PCP - General Internal Medicine 04/05/21 10/20/21 [facility], Pcp [address] [place] [address] PCP - General Internal Medicine 10/21/21 08/10/22 [facility], Pcp [address] [place] [address] PCP - General Internal Medicine 08/11/22 Shanna Álvarez MD Specialist Cardiology 02/10/21 Dejah Peoples, DILIP [address] [place] [address] Specialist Nurse Practitioner [facility] 02/28/24 documented as of this encounter
--- OUTSIDE RECORDS SUMMARY | 2024-10-14 10:22 | XMS_ITS | Encounter Summary ---
Author Organization [email or web address] [facility] Address [address] [place] [address] Care Team Providers Care Plain Clothes Police Officer Name Role Phone Tiffanie Ding MD Primary Care Provider Un available Jade Plata MD Primary Care Provider Unavail able Shanna Álvarez MD Unavailable [phone] Marina Love MD Primary Care Provider [phone] [facility], Pcp Primary Care Provider Unavailabl e [facility], Pcp Primary Care Provider Unavailabl e Dejah Peoples DNP Unavailable [phone] Reason for Visit * Reason Comments E-prescribe Rx Request Encounter Details Date Type Department Care Team Description 05/13/2018 Refill Adult Medicine [address] [id number] Chad Gore PA-C [address] [place] [address] [phone] E-prescribe Rx Request Social History Tobacco Use [...] N/A Patients current insurance carrier is: Payor: [employer] FFS / Plan: [employer] / Product Type: MEDICAID RISK documented in this encounter Plan of Treatment Not on file documented as of this encounter Visit Diagnoses Not on filedocumented in this encounter Care Teams Plain Clothes Police Officer Relationship Specialty Start Date End Date Tiffanie Ding MD PCP - General Internal Medicine 06/17/1604/07 Jade Plata MD PCP - General Internal Medicine 04/08/19 04/04/21 Marina Love MD [address] [place] [id number] PCP - General Internal Medicine 04/05/21 10/20/21 [facility], Pcp [address] [place] [address] PCP - General Internal Medicine 10/21/21 08/10/22 [facility], Pcp [address] [place] [phone] PCP - General Internal Medicine 08/11/22 Shanna Álvarez MD Specialist Cardiology 02/10/21 Dejah Peoples, DILIP [address] [place] [address] Specialist Nurse Practitioner Family 02/28/24 documented as of this encounter
--- OUTSIDE RECORDS SUMMARY | 2024-10-14 10:22 | XMS_ITS | Encounter Summary ---
Author Organization [employer] [facility] Address [address] [place] [address] Care Team Providers Care Windows Vmware Administrator Name Role Phone Jade Plata MD Primary Care Provider Unavail able Shanna Álvarez MD Unavailable [phone] Marina Love MD Primary Care Provider [phone] [facility], Pcp Primary Care Provider Unavailabl [facility], Pcp Primary Care Provider UnavailDejah Jacobs DNP Unavailable [phone] Encounter Details Date Type Department Care Team Description 08/27/2020 [facility] Medical Records [address] [place] [address] Abstract, Provider Social History Tobacco Use Types [...] on filedocumented in this encounter Care Teams Windows Vmware Administrator Relationship Specialty Start Date End Date Jade Plata MD PCP - General Internal Medicine 04/08/19 04/04/21 Marina Love MD [address] [place] [address] [phone] PCP - General Internal Medicine 04/05/21 10/20/21 [facility], Pcp [address] [place] [address] PCP - General Internal Medicine 10/21/21 08/10/22 [facility], Pcp [address] [place] [address] PCP - General Internal Medicine 08/11/22 Shanna Álvarez MD Specialist Cardiology 02/10/21 Dejah Peoples DNP [address] [place] [address] [phone] Specialist Nurse Practitioner Family 02/28/24 documented as of this encounter
--- OUTSIDE RECORDS SUMMARY | 2024-10-14 10:22 | XMS_ITS | Encounter Summary ---
Author Organization [employer] Address [address] [place] [address] Care Team Providers Care Liquid Flavor Compounder Name Role Phone Unavailable Primary Care Provider Unavailabl e Encounter Details Date Type Department Care Team (Latest Contact Info) Description 04/29/2019 Abstract [facility] CONVERSIONS Dental, Provider, DDS Social History [...]
--- OUTSIDE RECORDS SUMMARY | 2024-10-14 10:22 | XMS_ITS | Encounter Summary ---
Author Organization [facility] Address [address] [place] [address] Care Team Providers Care Drying Tunnel Operator Name Role Phone Shanna Álvarez MD Unavailable [phone] [facility], Pcp Primary Care Provider Unavailabl e Dejah Peoples DNP Unavailable [phone] Reason for Visit * Reason Comments E-prescribe Rx Request Encounter Details Date Type Department Care Team Description 10/10/2022 Refill Gastroenterology - [place] [address] [facility] [address] [place] [id number] PA-C [address] [facility] [address] [place] [address] E-prescribe Rx Request Social History Tobacco Use [...] on filedocumented in this encounter Care Teams Drying Tunnel Operator Relationship Specialty Start Date End Date [facility], Pcp PCP - General Internal Medicine 08/11/22 Shanna Álvarez MD Specialist Cardiology 02/10/21 Dejah Peoples DNP Specialist Nurse Practitioner Family 02/28/24 documented as of this encounter
--- OUTSIDE RECORDS SUMMARY | 2024-10-14 10:22 | XMS_ITS | Encounter Summary ---
Author Organization [employer] [facility] Address [address] [place] [address] Care Team Providers Care Accounting Associate Name Role Phone Tiffanie Ding MD Primary Care Provider Un available Jade Plata MD Primary Care Provider Unavail able Shanna Álvarez MD Unavailable [phone] Marina Love MD Primary Care Provider [phone] [facility], Pcp Primary Care Provider Unavailabl e [facility], Pcp Primary Care Provider Unavailabl e Dejah Peoples DNP Unavailable [phone] Encounter Details Date Type Department Care Team Description 06/29/2018 Telephone Gastroenterology - [place] [address] [facility] [address] [place] [address] Felicia Reaves MD Social History [...] on filedocumented in this encounter Care Teams Accounting Associate Relationship Specialty Start Date End Date Tiffanie Ding MD PCP - General Internal Medicine 06/17/1604/07 Jade Plata MD PCP - General Internal Medicine 04/08/19 04/04/21 Marina Love MD [address] [place] [address] PCP - General Internal Medicine 04/05/21 10/20/21 [facility], Pcp [address] [place] [address] PCP - General Internal Medicine 10/21/21 08/10/22 [facility], Pcp [address] [place] [address] PCP - General Internal Medicine 08/11/22 Shanna Álvarez MD Specialist Cardiology 02/10/21 Dejah Peoples, DILIP [address] [place] [address] Specialist Nurse Practitioner Family 02/28/24 documented as of this encounter
--- OUTSIDE RECORDS SUMMARY | 2024-10-14 10:22 | XMS_ITS | Encounter Summary ---
Author Organization [employer] [facility] Address [address] [place] [address] Care Team Providers Care Cardiac Nurse Name Role Phone Sony Milton MD Primary Care Provider Unavailabl e Aneudy Ness MD Primary Care Provider [phone] Tiffanie Ding MD Primary Care Provider Un available Jade Plata MD Primary Care Provider Unavail able Shanna Álvarez MD Unavailable [phone] Marina Love MD Primary Care Provider [phone] [facility], Pcp Primary Care Provider Unavailabl e [facility], Pcp Primary Care Provider Unavailabl e Dejah Peoples DNP Unavailable [phone] Encounter Details Date Type Department Care Team Description 06/30/2014 Hospital Medical Records [address] [place] [address] Bill Simon MD Social History Tobacco Use [...] on filedocumented in this encounter Care Teams Cardiac Nurse Relationship Specialty Start Date End Date Sony Milton MD PCP - General Cardiovascular Disease 04/30/14 10/11/15 Aneudy Ness MD [address] [place] [address] PCP - General Internal Medicine 10/12/15 06/16/16 Tiffanie Ding MD [address] [place], [place] [address] PCP - General Internal Medicine 06/17/16 04/07/19 Jade Plata MD [address] [place] [address] PCP - General Internal Medicine 04/08/19 04/04/21 Marina Love MD [address] [place] [address] PCP - General Internal Medicine 04/05/21 10/20/21 [facility], Pcp [address] [place], [place] [id number] PCP - General Internal Medicine 10/21/21 08/10/22 [facility], Pcp [address] [place], [place] [address] PCP - General Internal Medicine 08/11/22 Shanna Álvarez MD [address] [place], [place] [address] Specialist Cardiology 02/10/21 Dejah Peoples DNP [address] [place] [address] Specialist Nurse Practitioner Family 02/28/24 documented as of this encounter
--- OUTSIDE RECORDS SUMMARY | 2024-10-14 10:22 | XMS_ITS | Data Portability ---
Author Organization [place] [facility] [place] [facility] Address [address] [place] [address] Care Team Providers Care Advertising Account Manager Name Role Phone HIM CCA OTHER Assessment No assessment recorded. Plan of Treatment Reminders Order Date Submit Date Provider Last Modified By Organization Details Last Modified Time Details Appointments None recorded. Lab hemoglobin + hematocrit, blood [address], [address] 4 12:08:05 BMP, serum or plasma [address] [address] 4 12:08:06 Referral None recorded. Procedures None recorded. Surgeries None recorded. Imaging electrocard iogram [address], [address] 4 12:08:04 Medication Orders None recorded. Patient TargetsNo targets recorded. Patient Instructions Encounter Date Encounter Id Patient Instructions Last Modified By Organization Details Last Modified Time 01/03/2024 [id number] orthostatic vitals* akrones Not available 01/03/2024 12:08:02 Reason for Referral None Reported. Results Created Date Observation Date Name Description Value Unit Range Abnormal Flag Note LastModifiedBy Organization Detail LastModifiedTime 01/03/2001/03/2024 BMP, serum or plasm a CRE 0.8 Not Available Main - [facility] [address], [address] 01/03/2024 11:53:39 01/03/20 24 01/03/2024 BMP, serum or plasm a GLU 149 Not Available [facility] - [facility] [address], [address] 01/03/2024 11:53:39 01/03/20 24 01/03/2024 BMP, serum or plasm a K+ 4.4 Not Available [facility] - [facility] [address], [address] 01/03/2024 11:53:39 01/03/20 24 01/03/2024 BMP, serum or plasm a Na+ 135 Not Available [facility] - [facility] [address], [address] 01/03/2024 11:53:39 01/03/20 24 01/03/2024 hemog lobin + hemat ocrit , blood Hemoglobin 15.3 Not Available [address], [address] 01/03/2024 11:53:33 01/03/20 24 01/03/2024 hemog lobin + hemat ocrit , blood Hematocrit 45 Not Available [address], [address] 01/03/2024 11:53:33 01/03/20 24 01/03/2024 ramírez walter am No observ ation record ed. [address], [address] 01/03/2024 12:08:03 Result Notes None recorded. Procedures Surgical History None recorded. Imaging Results Imaging Date Name Status LastModified by Organization Details LastModified Time 01/03/2024 electrocardiogram completed [address], [address] 01/03/2024 12:08:03 Procedure Notes None recorded. Medical Equipment None Reported. Allergies Allergen ID Allergen Name Allergen Category Reaction Reaction Severity Criticality Documentation Date Start Date Code Code System Note Provider Name and Address Organization Details Recorded Time 53095 acetamino phen / oxycodone medicatio n Not available Not available Not available 07/17/2024 64074 3 RxNorm Not Available [facility] - production 5 09:49:30 8874 Product containin g penicilli n (product) medicatio n Not available Not available Not available 04/16/2024 30048 8001 SNOMED Not Available [facility] - production 4 [...] ONCE DIRECTED BY [facility] AT [facility] active Not Available Not Available No t Available OneTouch Verio test strips TEST THREE TIMES A DAY. FUTURE REFILLS FROM PCP. active Not Available Not Available No t Available Eliquis 5 mg tablet active Not Available Not Available Not Available BD Rosina 2nd Gen Pen Needle 32 gauge x /32 TWICE A DAY active Not Available Not [...] % 97.2 [degF] 16 /min 172.72 cm 20547.8 64 g 56 /min 150 mm[Hg] 80 mm[Hg] 130 mm[Hg] 78 mm[Hg] Not Available [facility] production 4 11:54:25 Date Recorded Heart rate Body temperature Respiratory rate Oxygen saturation Oxygen saturation in Arterial blood by Pulse oximetry Systolic blood pressure Diastolic blood pressure Provider Name and Address Organization Details Last Updated DateTime 4 70 /min 96.9 [degF] 16 /min 97 % 97 % 148 mm[Hg] 81 mm[Hg] Not Available [employer] 4 11:31:00 Social History None recorded. Functional Status None recorded. Mental Status None recorded. Family History Nothing Reported. Medical History No medical history recorded. Gynecological HistoryNo gynecological history recorded. Obstetrics History GPAL:G 0 P 0 0 0 0 Past Encounters Encounter ID Performer Location Encounter Start Date Encounter Closed Date Diagnosis/Indication Diagnosis SNOMED-CT Code Diagnosis ICD10 Code Diagnosis Note [id number] Madelyn Flores MD Main - [facility] [address] [place] [phone] 01/03/2024 11:38:46 01/03/2024 22:15:23 Headache 04814887 R51.9 As noted, we were called to see this patient regarding concerns of dizziness and headache. Evaluation in the field was performed by my wind turbine electrical engineer colleague, as noted above, I provided real-time [...] Díaz Member ID Guarantor Name 01/03/2024 1 [facility] - DOS ON OR AFTER 2022 - DUAL ELIGIBLE - FPC OPTIONS AND ONE CARE (MEDICARE REPLACEMENT/ADV ANTAGE - HMO) Mary Miller [id number] Mary Miller Notes Date Note Type Note [...] breath. Denies bleeding or blood in stool. Waiter/Waitress Head POC Test Results from Moy Garcia - [facility] iSTAT Chem8+ (13:15:45) Na: 135 mEq/L K: 4.4 mEq/L Cl: 97 mEq/L iCa: 1.20 mmol/L TCO2: 31 mmol/L Glu: 149 mg/dL BUN: 14 mg/dL Crea: 0.8 mg/dL Hct: 45 % Hb: 15.3 g/dL A .................. .................. .................. .................. .................. .................. .................. ............... Waiter/Waitress Head Note From Moy Garcia: Smartcare visit for [...] no other findings. 12 lead sent to [facility]. Consulted with Dr. Flores who ordered BMP. Blood drawn and BMP completed and sent for review. Pt encouraged to follow up with PCP about possible titration of metoprolol and red flags reviewed for worsening headache. Patient education provided. .................. .................. .................. .................. .................. .................. .................. ............... Disposition: Fulfilled Madelyn Flores MD [address] [facility],[address], [place], [address], [facility] 01/03/2024 13:30:49 OBGyn Episode No OBEpisode recorded.
--- OUTSIDE RECORDS SUMMARY | 2024-10-14 10:22 | XMS_ITS | Encounter Summary ---
Author Organization [employer] [facility] Address [address] [place] [address] Care Team Providers Care Set Off Press Operator Name Role Phone Tiffanie Ding MD Primary Care Provider Un available Jade Plata MD Primary Care Provider Unavail able Shanna Álvarez MD Unavailable [phone] Marina Love MD Primary Care Provider [phone] [facility], Pcp Primary Care Provider Unavailabl e Community, Pcp Primary Care Provider Unavailabl e Dejah Peoples DNP Unavailable [phone] Reason for Visit * Reason Onset Date Comments Testing 09/18/2018 Encounter Details Date Type Department Care Team Description 09/18/2018 Telephone Radiology - [address] [address] Jalen Ferguson MD [address] [place] [address] Testing Social History Tobacco Use Types Packs/Day Years [...] encounter Miscellaneous Notes * Telephone Encounter - Sandy Richardsono - 09/18/2018 5:37 PM EDT Please change the parotid biopsy to external. We are unable to do at our on office. Thank you, Sandy Radiology * Telephone Encounter - Sandy Fariacuso - 09/18/2018 5:25 PM EDT Please change the documented in this encounter Plan of Treatment Not on file documented as of this encounter Visit Diagnoses Not on filedocumented in this encounter Care Teams Set Off Press Operator Relationship Specialty Start Date End Date Tiffanie Ding MD PCP - General Internal Medicine 06/17/1604/07 Jade Plata MD PCP - General Internal Medicine 04/08/19 04/04/21 Marina Love MD [address] [place] [address] PCP - General Internal Medicine 04/05/21 10/20/21 [facility], Pcp [address] [place] [address] PCP - General Internal Medicine 10/21/21 08/10/22 [facility], Pcp [address] [place] [address] PCP - General Internal Medicine 08/11/22 Shanna Álvarez MD Specialist Cardiology 02/10/21 Dejah Peoples DNP [address] [place] [address] Specialist Nurse Practitioner Family 02/28/24 documented as of this encounter
--- OUTSIDE RECORDS SUMMARY | 2024-10-14 10:22 | XMS_ITS | Encounter Summary ---
Author Organization [employer] [facility] Address [address] [place] [address] Care Team Providers Care Bung Driver Name Role Phone Shanna Álvarez MD Unavailable [phone] Marina Love MD Primary Care Provider [facility], Pcp [facility] Primary Care Provider [facility] Dejah Peoples DNP Unavailable [phone] Reason for Visit * Reason Comments E-prescribe Rx Request Encounter Details Date Type Department Care Team Description 07/26/2021 Refill Adult Medicine [address] [address] Jade Plata MD E-prescribe Rx Request Social [...] Encounter - Jennifer Roche M.A. - 07/28/2021 8:48 AM EST Refused pharmacy request, too soon * Telephone Encounter - Carito Orosco PA-C - 07/27/2021 2:50 PM EST Images from the original note were not included. Why are refills being requested? Carito Orosco PA-C * Telephone Encounter - Jennifer Roche M.A. - 07/27/2021 1:31 PM EST Lab Results Component Value Date NA 134 06/21/2021 K 4.7 06/21/2021 CO2 30 06/21/2021 CL 99 06/21/2021 BUN 15 06/21/2021 CREAT 0.77 06/21/2021 GLU 150 06/21/2021 CA 9.2 06/21/2021 GFR > 60 06/21/2021 Lab Results Component Value Date HGBA1C 7.4 06/21/2021 MALBUR 25.1 03/31/2021 MALBCR 12.8 03/31/2021 CHOL 188 06/21/2021 LDL 98 06/21/2021 HDL 77 06/21/2021 TRIG 66 06/21/2021 GLU 150 06/21/2021 CREAT 0.77 06/21/2021 Last appt with RADHA Najera 07/08/21 * Telephone Encounter - Mei Steel - 07/27/2021 11:37 AM EST Patient would like script to be: E-PRESCRIBED/FAXED TO PHARMACY WHEN WAS THE PATIENT'S LAST APPOINTMENT IN ADULT MEDICINE? 07/08/21 WHEN WAS THE LAST TIME THE PATIENT SAW THEIR PCP? Same as above Does patient have an upcoming appointment? Yes 09/13/21 (THE MEDICATION REQUESTED IS ON THE MED [...] N/A Patients current insurance carrier is: Payor: [facility] MCR / Plan: Access[employer] $0 [employer] [id number] / Product Type: HMO [id number] documented in this encounter Plan of Treatment Not on file documented as of this encounter Visit Diagnoses Diagnosis Epigastric pain Abdominal pain, epigastric Gastroesophageal reflux disease without esophagitis Esophageal reflux Old AR (myocardial infarction) Old myocardial infarction documented in this encounter Care Teams Bung Driver Relationship Specialty Start Date End Date Marina Love MD [address] [place] [address] PCP - General Internal Medicine 04/05/21 10/20/21 [facility], Pcp [address] [place], [place] [phone] PCP - General Internal Medicine 10/21/21 08/10/22 [facility], Pcp [address] [place], [place] [address] PCP - General Internal Medicine 08/11/22 Shanna Álvarez MD Specialist Cardiology 02/10/21 Dejah Peoples DNP [address] [place] [address] Specialist Nurse Practitioner Family 02/28/24 documented as of this encounter
--- OUTSIDE RECORDS SUMMARY | 2024-10-14 10:22 | XMS_ITS | Encounter Summary ---
Author Organization [facility] Address [address] [place] [address] Care Team Providers Care Relay Associate Name Role Phone Jade Plata MD Primary Care Provider Unavail able Shanna Álvarez MD Unavailable [phone] Marina Love MD Primary Care Provider [phone] [facility], Pcp Primary Care Provider Unavailabl e [facility], Pcp Primary Care Provider Unavailabl e Dejah Peoples DNP Unavailable [phone] Encounter Details Date Type Department Care Team Description 01/07/2021 [facility] Medical Records [address] [place] [address] Social History Tobacco Use Types Packs/Day Years [...] on filedocumented in this encounter Care Teams Relay Associate Relationship Specialty Start Date End Date Jade Plata MD PCP - General Internal Medicine 04/08/19 04/04/21 Marina Love MD [address] [place] [address] PCP - General Internal Medicine 04/05/21 10/20/21 [facility], Pcp [address] [place] [address] PCP - General Internal Medicine 10/21/21 08/10/22 [facility], Pcp [address] [place] [address] PCP - General Internal Medicine 08/11/22 Shanna Álvarez MD Specialist Cardiology 02/10/21 Dejah Peoples, DILIP [address] [place] [address] Specialist Nurse Practitioner Family 02/28/24 documented as of this encounter
--- OUTSIDE RECORDS SUMMARY | 2024-10-14 10:22 | XMS_ITS | Encounter Summary ---
Author Organization [facility] Address [address] [place] [address] Care Team Providers Care Water Jet Operator Name Role Phone Sony Milton MD Primary Care Provider Unavailcresencio e Aneudy Ness MD Primary Care Provider [phone] Tiffanie Ding MD Primary Care Provider Un available Jade Plata MD Primary Care Provider Unavail able Shanna Álvarez MD Unavailable [phone] Marina Love MD Primary Care Provider [phone] [facility], Pcp Primary Care Provider Unavailabl e [facility], Pcp Primary Care Provider Unavailabl e Dejah Peoples DNP Unavailable [phone] Encounter Details Date Type Department Care Team Description 06/28/2014 Hospital Medical Records [address] [place] [address] Slava Rausch MD Social History Tobacco Use [...] on filedocumented in this encounter Care Teams Water Jet Operator Relationship Specialty Start Date End Date Sony Milton MD PCP - General Cardiovascular Disease 04/30/14 10/11/15 Aneudy Ness MD [address] [place] [address] PCP - General Internal Medicine 10/12/15 06/16/16 Tiffanie Ding MD [address] [place] [address] PCP - General Internal Medicine 06/17/16 04/07/19 Jade Plata MD [address] [place] [address] PCP - General Internal Medicine 04/08/19 04/04/21 Marina Love MD [address] [place] [address] PCP - General Internal Medicine 04/05/21 10/20/21 [facility], Pcp [address] [place], [place] [phone] PCP - General Internal Medicine 10/21/21 08/10/22 [facility], Pcp [address] [place] [address] PCP - General Internal Medicine 08/11/22 Shanna Álvarez MD [address] [place], [place] [phone] Specialist Cardiology 02/10/21 Dejah Peoples, DILIP [address] [place] [address] Specialist Nurse Practitioner Family 02/28/24 documented as of this encounter
--- OUTSIDE RECORDS SUMMARY | 2024-10-14 10:22 | XMS_ITS | Encounter Summary ---
Author Organization [employer] [facility] Address [address] [place] [address] Care Team Providers Care Tube Blower Name Role Phone Shanna Álvarez MD Unavailable [phone] Marina Love MD Primary Care Provider [phone] [facility], Pcp [facility] Primary Care Provider [facility] e Dejah Peoples DNP Unavailable [phone] Encounter Details Date Type Department Care Team Description 09/03/2021 Telephone Gastroenterology - [place] [facility] [address] [place] [address] PA-C [facility] [address] [place] [address] Social History Tobacco Use Types Packs/Day Years [...] and vitamin C to local pharmacy[facility] [place] [facility] * Telephone Encounter - Wendy Hernandez [...] on filedocumented in this encounter Care Teams Tube Blower Relationship Specialty Start Date End Date Marina Love MD [address] [place] [address] PCP - General Internal Medicine 04/05/21 10/20/21 [facility], Pcp [address] [place] [address] PCP - General Internal Medicine 10/21/21 08/10/22 [facility], Pcp [address] [place] [address] PCP - General Internal Medicine 08/11/22 Shanna Álvarez MD Specialist Cardiology 02/10/21 Dejah Peoples DNP [address] [place] [address] Specialist Nurse Practitioner Family 02/28/24 documented as of this encounter
--- OUTSIDE RECORDS SUMMARY | 2024-10-14 10:22 | XMS_ITS | Encounter Summary ---
Author Organization [facility] Address [address] [place] [address] Care Team Providers Care City Letter Carrier Name Role Phone Shanna Álvarez MD Unavailable [phone] [facility], Pcp Primary Care Provider UnavailDejah Jacobs DNP Unavailable [phone] Reason for Visit * Reason Comments E-prescribe Rx Request Encounter Details Date Type Department Care Team Description 10/23/2023 Refill Gastroenterology - [place] [facility] [address] [place] [phone] PA-C [facility] [address] [place] [address] E-prescribe Rx Request Social History Tobacco Use [...] on filedocumented in this encounter Care Teams City Letter Carrier Relationship Specialty Start Date End Date [facility], Pcp PCP - General Internal Medicine 08/11/22 Shanna Álvarez MD Specialist Cardiology 02/10/21 Dejah Peoples DNP Specialist Nurse Practitioner Family 02/28/24 documented as of this encounter
--- OUTSIDE RECORDS SUMMARY | 2024-10-14 10:22 | XMS_ITS | Encounter Summary ---
Author Organization [facility] Address [address] [place] [address] Care Team Providers Care Insole And Heel Stiffener Name Role Phone Tiffanie Ding MD Primary Care Provider Un available Jade Plata MD Primary Care Provider Unavail able Shanna Álvarez MD Unavailable [phone] Marina Love MD Primary Care Provider [phone] [facility], Pcp Primary Care Provider Unavailabl e [facility], Pcp Primary Care Provider Unavailabl e Dejah Peoples DNP Unavailable [phone] Reason for Visit * Reason Onset Date Comments medication problems 11/13/2018 Encounter Details Date Type Department Care Team Description 11/13/2018 Telephone Adult Medicine [address] [id number] Tiffanie Ding MD medication problems Social History [...] Cartwright M.A. - 11/14/2018 12:48 PM EDT [facility] approved from 11/14/2018-11/13/2020 Auth number [id number] Pharmacy notified * Telephone Encounter - Mily Cartwright M.A. - 11/13/2018 4:37 PM EDT Prior auth done by form to [facility] Dx type 2 diabetes Tried and failed glyburide and januvia Pt is currently on metformin and glipizide * Telephone Encounter - Teri Cisse - 11/13/2018 1:41 PM EDT Who is calling? Fax received from [facility] [phone] Name of the medication Dulaglutide (TRULICITY) 0.75 [...] on filedocumented in this encounter Care Teams Insole And Heel Stiffener Relationship Specialty Start Date End Date Tiffanie Ding MD PCP - General Internal Medicine 06/17/1604/07 Jade Plata MD PCP - General Internal Medicine 04/08/19 04/04/21 Marina Love MD [address] [place] [address] PCP - General Internal Medicine 04/05/21 10/20/21 [facility], Pcp [address] [place] [address] PCP - General Internal Medicine 10/21/21 08/10/22 [facility], Pcp [address] [place] [address] PCP - General Internal Medicine 08/11/22 Shanna Álvarez MD Specialist Cardiology 02/10/21 Dejah Peoples DNP [address] [place] [address] Specialist Nurse Practitioner Family 02/28/24 documented as of this encounter
--- OUTSIDE RECORDS SUMMARY | 2024-10-14 10:22 | XMS_ITS | Encounter Summary ---
Author Organization [employer] [facility] Address [address] [place] [address] Care Team Providers Care Color Specialist Name Role Phone Jade Plata MD Primary Care Provider Unavail able Shanna Álvarez MD Unavailable [phone] Marina Love MD Primary Care Provider [phone] [facility], Pcp Primary Care Provider Unavailabl [facility], Pcp Primary Care Provider UnavailDejah Jacobs DNP Unavailable [phone] Encounter Details Date Type Department Care Team Description 08/11/2020 Old Medical Records Medical Records [address] [place] [address] Abstract, Provider Social History Tobacco Use Types [...] on filedocumented in this encounter Care Teams Color Specialist Relationship Specialty Start Date End Date Jade Plata MD PCP - General Internal Medicine 04/08/19 04/04/21 Marina Love MD [address] [place] [phone] PCP - General Internal Medicine 04/05/21 10/20/21 [facility], Pcp [address] [place] [address] PCP - General Internal Medicine 10/21/21 08/10/22 [facility], Pcp [address] [place] [address] PCP - General Internal Medicine 08/11/22 Shanna Álvarez MD Specialist Cardiology 02/10/21 Dejah Peoples DNP [address] [place] [address] [phone] Specialist Nurse Practitioner Family 02/28/24 documented as of this encounter
--- OUTSIDE RECORDS SUMMARY | 2024-10-14 10:22 | XMS_ITS | Encounter Summary ---
Author Organization [facility] Address [address] [place] [address] Care Team Providers Care Boat Diesel Motor Mechanic Name Role Phone Tiffanie Ding MD Primary Care Provider Un available Jade Plata MD Primary Care Provider Unavail able Shanna Álvarez MD Unavailable [phone] Marina Love MD Primary Care Provider [phone] [facility], Pcp Primary Care Provider Unavailabl e [facility], Pcp Primary Care Provider Unavailabl e Dejah Peoples DNP Unavailable [phone] Encounter Details Date Type Department Care Team Description 10/16/2018 Orders Only Medical Records [address] [place] [id number] Abstract, Provider Mass of parotid gland Social [...] neck documented in this encounter Care Teams Boat Diesel Motor Mechanic Relationship Specialty Start Date End Date Tiffanie Ding MD PCP - General Internal Medicine 06/17/1604/07 Jade Plata MD PCP - General Internal Medicine 04/08/19 04/04/21 Marina Love MD [address] [place] [address]34 PCP - General Internal Medicine 04/05/21 10/20/21 [facility], Pcp [address] [place] [address]71 PCP - General Internal Medicine 10/21/21 08/10/22 [facility], Pcp [address] [place] [address]89 PCP - General Internal Medicine 08/11/22 Shanna Álvarez MD Specialist Cardiology 02/10/21 Dejah Peoples DNP [address] [place] [address]693 Specialist Nurse Practitioner Family 02/28/24 documented as of this encounter
--- OUTSIDE RECORDS SUMMARY | 2024-10-14 10:22 | XMS_ITS | Encounter Summary ---
Author Organization [facility] Address [address] [place] [address] Care Team Providers Care Network Operations Center Technician Name Role Phone Shanna Álvarez MD Unavailable [phone] Marina Love MD Primary Care Provider [facility], Pcp [facility] Primary Care Provider [facility] Dejah Peoples DNP Unavailable [phone] Reason for Visit * Reason Comments E-prescribe Rx Request Encounter Details Date Type Department Care Team Description 07/28/2021 Refill Adult Medicine [address] [address] Jade Plata MD E-prescribe Rx Request Social [...] on filedocumented in this encounter Care Teams Network Operations Center Technician Relationship Specialty Start Date End Date Marina Love MD [address] [place] [address]21 PCP - General Internal Medicine 04/05/21 10/20/21 [facility], Pcp [address] [place] [address]2363 PCP - General Internal Medicine 10/21/21 08/10/22 [facility], Pcp [address] [place] [address] 95128 PCP - General Internal Medicine 08/11/22 Shanna Álvarez MD Specialist Cardiology 02/10/21 Dejah Peoples DNP [address] [place] [address]492 Specialist Nurse Practitioner Family 02/28/24 documented as of this encounter
--- OUTSIDE RECORDS SUMMARY | 2024-10-14 10:22 | XMS_ITS | Encounter Summary ---
Author Organization [facility] Address [address] [place] [address] Care Team Providers Care Territory Sales Manager Name Role Phone Jade Plata MD Primary Care Provider Unavail able Shanna Álvarez MD Unavailable [phone] Marina Love MD Primary Care Provider [phone] Community, Pcp Primary Care Provider Unavailabl e [facility], Pcp Primary Care Provider Unavailabl e Dejah Peoples DNP Unavailable [phone] Encounter Details Date Type Department Care Team Description 06/25/2020 Business Process Analyst Report Medical Records [address] [place] [address] Nellie Aranda [address] [place] [address] Social History Tobacco Use Types Packs/Day Years [...] on filedocumented in this encounter Care Teams Territory Sales Manager Relationship Specialty Start Date End Date Jade Plata MD PCP - General Internal Medicine 04/08/19 04/04/21 Marina Love MD [address] [place] [address]603 PCP - General Internal Medicine 04/05/21 10/20/21 [facility], Pcp [address] [place] [address] 59191 PCP - General Internal Medicine 10/21/21 08/10/22 [facility], Pcp [address] [place], [place] [phone] PCP - General Internal Medicine 08/11/22 Shanna Álvarez MD Specialist Cardiology 02/10/21 Dejah Peoples DNP [address] [place] [address]91 Specialist Nurse Practitioner [facility] 02/28/24 documented as of this encounter
--- OUTSIDE RECORDS SUMMARY | 2024-10-14 10:22 | XMS_ITS | Encounter Summary ---
Author Organization [facility] Address [address] [place] [address] Care Team Providers Care Pack Out Operator Name Role Phone Shanna Álvarez MD Unavailable [phone] Marina Love MD Primary Care Provider [facility], Pcp Primary Care Provider Unavailabl [facility], Pcp Primary Care Provider [facility] Dejah Peoples DNP Unavailable [phone] Encounter Details Date Type Department Care Team Description 09/03/2021 Telephone Gastroenterology - [place] [address] [facility] [address] [place] [address] PA-C [address] [facility] [address] [place] [address] Social History Tobacco Use Types Packs/Day Years [...] on filedocumented in this encounter Care Teams Pack Out Operator Relationship Specialty Start Date End Date Marina Love MD [address] [place], [place] [phone] PCP - General Internal Medicine 04/05/21 10/20/21 [facility], Pcp [address] [place], [place] [phone] PCP - General Internal Medicine 10/21/21 08/10/22 [facility], Pcp [address] [place] [address] PCP - General Internal Medicine 08/11/22 Shanna Álvarez MD Specialist Cardiology 02/10/21 Dejah Peoples DNP [address] [place] [address] 11100 Specialist Nurse Practitioner Family 02/28/24 documented as of this encounter
--- OUTSIDE RECORDS SUMMARY | 2024-10-14 10:22 | XMS_ITS | Encounter Summary ---
Author Organization [facility] Address [address] [place] [address] Care Team Providers Care Bench Molder Name Role Phone Sony Milton MD Primary Care Provider Unavailabl e Aneudy Ness MD Primary Care Provider [phone] Tiffanie Ding MD Primary Care Provider Un available Jade Plata MD Primary Care Provider Unavail able Shanna Álvarez MD Unavailable [phone] Marina Love MD Primary Care Provider [facility], Pcp Primary Care Provider Unavailabl e [facility], Pcp Primary Care Provider Unavailabl e Dejah Peoples DNP Unavailable [phone] Encounter Details Date Type Department Care Team Description 02/05/2009 [facility] Medical Records [address] [place] [address] Abstract, Provider Social History Tobacco Use Types [...] on filedocumented in this encounter Care Teams Bench Molder Relationship Specialty Start Date End Date Sony Milton MD PCP - General Cardiovascular Disease 04/30/14 10/11/15 Aneudy Ness MD [address] [place] [address] PCP - General Internal Medicine 10/12/15 06/16/16 Tiffanie Ding MD [address] [place] [address] PCP - General Internal Medicine 06/17/16 04/07/19 Jade Plata MD [address] [place] [address] PCP - General Internal Medicine 04/08/19 04/04/21 Marina Love MD [address] [place] [address] PCP - General Internal Medicine 04/05/21 10/20/21 [facility], Pcp [address] [place], [place] [phone] PCP - General Internal Medicine 10/21/21 08/10/22 [facility], Pcp [address] [place] [address] PCP - General Internal Medicine 08/11/22 Shanna Álvarez MD [address] [place] [address] Specialist Cardiology 02/10/21 Dejah Peoples DNP [address] [place] [address]507 Specialist Nurse Practitioner Family 02/28/24 documented as of this encounter
--- OUTSIDE RECORDS SUMMARY | 2024-10-14 10:23 | XMS_ITS | Encounter Summary ---
Author Organization [facility] Address [address] [place] [address] Care Team Providers Care Physician Coder Name Role Phone Jade Plata MD Primary Care Provider Unavail able Shanna Álvarez MD Unavailable [phone] Marina Love MD Primary Care Provider [facility], Pcp Primary Care Provider Unavailabl e [facility], Pcp Primary Care Provider Unavailabl e Dejah Peoples DNP Unavailable [phone] Encounter Details Date Type Department Care Team Description 07/15/2019 Steel Floor Pan Placing Supervisor Report Medical Records [address] [place] [address] Nellie Aranda 8 [place] [address] Social History Tobacco Use Types Packs/Day Years [...] on filedocumented in this encounter Care Teams Physician Coder Relationship Specialty Start Date End Date Jade Plata MD PCP - General Internal Medicine 04/08/19 04/04/21 Marina Love MD [address] [place] [address] [phone] PCP - General Internal Medicine 04/05/21 10/20/21 [facility], Pcp [address] [place] [address] PCP - General Internal Medicine 10/21/21 08/10/22 [facility], Pcp [address] [place] [address] PCP - General Internal Medicine 08/11/22 Shanna Álvarez MD Specialist Cardiology 02/10/21 Dejah Peoples, DILIP [address] [place] [address]20 Specialist Nurse Practitioner Family 02/28/24 documented as of this encounter
--- OUTSIDE RECORDS SUMMARY | 2024-10-14 10:23 | XMS_ITS | Encounter Summary ---
Author Organization [facility] Address [address] [place] [address] Care Team Providers Care School Psychology Professor Name Role Phone Jade Plata MD Primary Care Provider Unavail able Shanna Álvarez MD Unavailable [phone] Marina Love MD Primary Care Provider [facility], Pcp Primary Care Provider Unavailabl e [facility], Pcp Primary Care Provider Unavailabl e Dejah Peoples DNP Unavailable [phone] Reason for Visit * Reason Comments E-prescribe Rx Request Encounter Details Date Type Department Care Team Description 07/11/2019 Refill Adult Medicine [address] [address] Jade Plata MD E-prescribe Rx Request Social [...] N/A Patients current insurance carrier is: Payor: [employer] FFS / Plan: [employer] / Product Type: MEDICAID RISK documented in this encounter Plan of Treatment Not on file documented as of this encounter Visit Diagnoses Diagnosis Epigastric pain Abdominal pain, epigastric Gastroesophageal reflux disease without esophagitis Esophageal reflux Old [place] (myocardial infarction) Old myocardial infarction documented in this encounter Care Teams School Psychology Professor Relationship Specialty Start Date End Date Jade Plata MD PCP - General Internal Medicine 04/08/19 04/04/21 Marina Love MD [address] [place] [address] PCP - General Internal Medicine 04/05/21 10/20/21 [facility], Pcp [address] [place], [place] [phone] PCP - General Internal Medicine 10/21/21 08/10/22 [facility], Pcp [address] [place], [place] [phone] PCP - General Internal Medicine 08/11/22 Shanna Álvarez MD Specialist Cardiology 02/10/21 Dejah Peoples DNP [address] [place] [address] Specialist Nurse Practitioner Family 02/28/24 documented as of this encounter
--- OUTSIDE RECORDS SUMMARY | 2024-10-14 10:23 | XMS_ITS | Encounter Summary ---
Author Organization [facility] Address [address] [place] [address] Care Team Providers Care Soybean Specialties Cook Name Role Phone Tiffanie Ding MD Primary Care Provider Un available Jade Plata MD Primary Care Provider Unavail able Shanna Álvarez MD Unavailable [phone] Marina Love MD Primary Care Provider [phone] [facility], Pcp Primary Care Provider Unavailabl e [facility], Pcp Primary Care Provider Unavailabl e Dejah Peoples DNP Unavailable [phone] Reason for Visit * Reason Onset Date Comments Error 09/16/2016 Encounter Details Date Type Department Care Team Description 09/16/2016 Refill Adult Medicine [address] [address] Tiffanie Ding MD Error Social History Tobacco Use Types Packs/Day Years [...] on filedocumented in this encounter Care Teams Soybean Specialties Cook Relationship Specialty Start Date End Date Tiffanie Ding MD PCP - General Internal Medicine 06/17/1604/07 Jade Plata MD PCP - General Internal Medicine 04/08/19 04/04/21 Marina Love MD [address] [place] [address] PCP - General Internal Medicine 04/05/21 10/20/21 [facility], Pcp [address] [place] [address]16 PCP - General Internal Medicine 10/21/21 08/10/22 [facility], Pcp [address] [place] [address]478 PCP - General Internal Medicine 08/11/22 Shanna Álvarez MD Specialist Cardiology 02/10/21 Dejah Peoples, DILIP [address] [place] [address] Specialist Nurse Practitioner [facility] 02/28/24 documented as of this encounter
--- OUTSIDE RECORDS SUMMARY | 2024-10-14 10:23 | XMS_ITS | Encounter Summary ---
Author Organization [facility] Address [address] [place] [address] Care Team Providers Care Publicity Person Name Role Phone Jade Plata MD Primary Care Provider Unavail able Shanna Álvarez MD Unavailable [phone] Marina Love MD Primary Care Provider [phone] [facility] Primary Care Provider Unavailabl e [facility], Pcp Primary Care Provider UnavailDejah Jacobs DNP Unavailable [phone] Encounter Details Date Type Department Care Team Description 02/03/2020 Orders Only Adult Medicine [address] [address] Jade Plata MD Pulsatile neck mass Social [...] mass documented in this encounter Care Teams Publicity Person Relationship Specialty Start Date End Date Jade Plata MD PCP - General Internal Medicine 04/08/19 04/04/21 Marina Love MD [address] [place] [address] PCP - General Internal Medicine 04/05/21 10/20/21 [facility], Pcp [address] [place] [address] PCP - General Internal Medicine 10/21/21 08/10/22 [facility], Pcp [address] [place] [address] PCP - General Internal Medicine 08/11/22 Shanna Álvarez MD Specialist Cardiology 02/10/21 Dejah Peoples, DILIP [address] [place] [address] Specialist Nurse Practitioner Family 02/28/24 documented as of this encounter
--- OUTSIDE RECORDS SUMMARY | 2024-10-14 10:23 | XMS_ITS | Clinical Summary ---
Author Organization [facility] Address [address] [place] [address] Phone Care Team Providers Care Human Factors Advisor Lead Name Role Phone Cedric Friedman ROGER Primary Care Provider [phone] Allergies Active Allergy Reactions Criticality Noted Date Comments Acetaminophen Hives 05/19/2017 Atorvastatin 03/09/2016 Lipitor Reaction not mentioned Cephalexin Monohydrate 03/09/2016 Keflex [Cephalexin Monohydrate-polysor eligio 80] Reaction not mentioned Codeine 03/09/2016 Reaction not mentioned Insulin Degludec-Liraglutide Itching 08/08/2023 Kiwi (Actinidia Chinensis) 03/09/2016 Kiwi Extract Reaction not mentioned Morphine Nausea And Vomiting 03/09/2016 No allergy Oxycodone Hives 05/19/2017 Oxycodone-Acetaminophen Hives,Unknown 6 Percocet [Apap-fd&c Red #40 Al Balderrama-oxycodone] Penicillins Rash 12/01/2015 Medications albuterol HFA (PROAIR HFA ; PROVENTIL HFA ; VENTOLIN HFA) 90 mcg/actuation inhaler 2 puffs every 4 (four) hours if needed. 2 Active apixaban (ELIQUIS) 5 mg tablet Take 1 Tablet by mouth 2 times daily. Active ascorbic acid (VITAMIN C) 500 mg chewable tablet TAKE 1 TABLET BY MOUTH DAILY. TAKE WITH IRON 2 Active CYANOCOBALAMIN , VITAMIN B-12, ORAL Place 500 mcg under the tongue 1 (one) time each day. B-12 Microlozenge 500 MCG SL Tab Take 1 tablet by mouth daily. 1 Active cholecalcifero l (VITAMIN D-3) 25 mcg (1,000 unit) capsule Take 1 capsule (1,000 Units total) by mouth 1 (one) time each day. 1 Active famotidine (PEPCID) 20 mg tablet Take 1 tablet (20 mg total) by mouth 1 (one) time each day. 1 Active fluticasone propionate (FLONASE) 50 mcg/actuation nasal spray 2 Sprays by Nasal route daily. 2 Active FREESTYLE LANCETS MISC Use to test blood sugar 2 times daily 2 Active blood sugar diagnostic (FreeStyle Lite Strips) test strip Use to test twice daily 2 Active metFORMIN XR (GLUCOPHAGE-XR ) 500 mg 24 hr tablet TAKE 2 TABLETS BY MOUTH TWICE A DAY 2 Active metoprolol tartrate (LOPRESSOR) 25 mg tablet TAKE 1 TABLET BY MOUTH TWICE A DAY 2 Active pantoprazole (PROTONIX) 40 mg EC tablet Take 1 Tablet by mouth daily. 2 Active insulin glargine-lixis enatide (Soliqua 100/33) 100 unit-33 mcg/mL injection pen 25 Units 1 (one) time each day before breakfast. 1 Active aspirin 81 mg chewable tablet aspirin 81 MG tablet Take 81 mg by mouth daily. 025 Discontin ued(Thera py completed ) ferrous sulfate 325 mg (65 mg elemental iron) tablet TAKE 1 TABLET BY MOUTH EVERY DAY 4 025 Discontin ued(Thera py completed ) Active Problems Problem Noted Date Diagnosed Date Infiltrating ductal carcinom a of breast, right (CMS/HCC V24, CMS/HCC V28) 09/18/2024 Infiltrating lobular carcino ma of breast, stage 1, left (CMS/HCC V24, CMS/HCC V28) 09/18/2024 Abnormal iron saturation 06/05/2024 Low ferritin 06/05/2024 [...] weeks Allergic rhinitis 12/02/2016 Asthma 03/09/2016 Old MO (myocardial infarction) 03/09/2016 Overview (06/05/2024): NON STEMI 06/28/14 Echo normal / stress test 08/18/14 Follows with [facility] Type 2 diabetes mellitus wit h cataract ([facility] V24, [facility] V28) 03/09/2016 Overview (06/05/2024): Dx'd in 1996; Endo @ [facility] Venous insufficiency of both lower extremities 0 03/09/2016 Vitamin D deficiency 03/09/2016 Depression 12/01/2015 Essential hypertension 12/01/2015 Gastroesophageal reflux disease without esophagi tis 12/01/2015 Encounters Date Type Department Care Team Description 09/27/2024 2:00 PM EDT - 09/27/2024 11:59 PM EDT Hospital [facility] at [address] [phone] Infiltrating ductal carcinoma of bilateral female breasts ([facility] V24, [facility] V28) Discharge Disposition: Home or Self Care 09/27/2024 12:36 PM EDT - 09/27/2024 11:59 PM EDT Hospital Encounter [facility] Ultrasound [address] [place] [phone] Infiltrating ductal carcinoma of bilateral female breasts ([facility] V24, [facility] V28); Mass of breast Discharge Disposition: Home or Self Care 09/23/2024 Telephone General Surgery - [place] [address] [phone] Jalen Ferguson MD Prior Authorization (10/01/24 Dr. Jalen Ferguson) 09/19/2024 Telephone General Surgery - [place] 175 [facility] [address] [place] [phone] [facility] [place] 09/18/2024 8:30 AM EDT Consult Breast [facility] [address] [facility] [address] [place] [phone] Jalen Ferguson MD Personal history of malignant neoplasm of breast (Primary Dx); Infiltrating ductal carcinoma of breast, right (CMS/HCC V24, CMS/HCC V28); Infiltrating lobular carcinoma of breast, stage 1, left (CMS/HCC V24, CMS/HCC V28) 09/05/2024 8:26 AM EDT - 09/05/2024 11:59 PM EDT Hospital Encounter [facility] at [address] [phone] Breast asymmetry Discharge Disposition: Home or Self Care 09/05/2024 7:12 AM EDT - 09/05/2024 11:59 PM EDT Hospital Encounter [facility] at [address] [phone] Breast asymmetry Discharge Disposition: Home or Self Care 08/26/2024 8:30 AM EDT - 08/26/2024 11:59 PM EDT Hospital Encounter [facility] at [address] [phone] Category 3 mammography result with short follow-up interval suggested for probably benign finding Discharge Disposition: Home or Self Care 08/26/2024 7:24 AM EDT - 08/26/2024 11:59 PM EDT Hospital Encounter [facility] Ultrasound [address] [place] [phone] Breast mass Discharge Disposition: Home or Self Care 08/02/2024 Telephone [facility] [address] [facility] [address] [place] [phone] Dejah Peoples NP No Show 07/25/2024 1:17 PM EST - 07/25/2024 11:59 PM EST Hospital Encounter [facility] Ultrasound [address] [place] [address] Category 3 mammography result with short follow-up interval suggested for probably benign finding Discharge Disposition: Home or Self Care 07/25/2024 12:53 PM EST - 07/25/2024 11:59 PM EST [facility] [address] [place] [phone] Category 3 mammography result with short follow-up [...] older (Afluria) 3 years and older 03/18/2016 RENAY/TranSwitch SARS-CoV-2 COVID -19, vector-nr, rS-Ad26, preservative free 09/22/2020 Equallogic SARS-CoV-2 COVID-19, mRNA, LNP-S, preservative free 07/06/2021 Pneumococcal conjugate 13 va lent (Prevnar 13, PCV13) 2mo and older 07/08/2021 Pneumococcal polysaccharide 23 valent (Pneumovax 23) 2yo and older 03/18/2015 Tdap Tetanus diptheria acell ular pertussis (Boostrix; Adacel) 7yo and older 08/12/2014 Surgical History Surgery Date Site/Laterality Comments HYSTERECTOMY 1985 PROCEDURE: HISTORICAL HYSTERECTOMY; COMMENT: total BSO OTHER SURGICAL HISTORY 2014 PROCEDURE: ---- OTHER ----; COMMENT: EVLT and phlebectomy COLONOSCOPY 12/12/2006 PROCEDURE: HISTORICAL COLONOSCOPY; COMMENT: [email or web address]; normal screening exam, not difficult. COLONOSCOPY W/ POLYPECTOMY 12/12/2016 PROCEDURE: [place] COLSC FLX W/RMVL OF TUMOR POLYP LESION [...] a Exertional asthma 12/01/2015 DX:Exertional asthma Old MO (myocardial infarction) 03/09/2016 D X:Old MO (myocardial infarction); COMMENT: NON STEMI 06/28/14 / stress test 08/18/14 Venous insufficiency of both lower extremities 03/09/2016 DX:Venous insufficiency of b oth lower extremities; COMMENT: EVLT 2014/ Dr Mohan Benedict Type 2 diabetes mellitus wit h cataract (CMS/HCC V24, CMS/HCC V28) 03/09/2016 DX:Type 2 diabetes mellitus with cataract (HCC); COMMENT: OU Varicose veins 03/09/2016 DX:Varicose vein s Atrial fibrillation (CMS/HCC V24, CMS/HCC V28) 03/09/2016 DX:Atrial fibrillation (HCC) 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 Vitamin D deficiency 03/09/2016 DX:Vitamin D deficiency Asthma 03/09/2016 DX:Asthma Allergic rhinitis 12/02/2016 DX:Allergic rh initis Enlarged parotid gland 10/23/2018 DX:Enlarg ed parotid gland Low ferritin DX:Low ferritin Abnormal iron saturation DX:Abno rmal iron saturation Irregular heart beat A fib Family History Medical History Relation Name Comments [...] Female 07/12/2024 9:02 AM EST Sexual Orientation Straight 09/04/2024 10 :20 AM EDT Obstetrics History Para Term AB IAB SAB Ectopic Multiple Livin g Live Births 3 Last Filed Vital Signs Vital Sign Reading Time Taken Comments Blood Pressure 144/66 09/18/2024 8:35 AM EDT Pulse 61 09/18/2024 8:35 AM EDT Temperature 36.7 ??C (98 ??F) 09/18/2024 8:35 AM EDT Respiratory Rate - - Oxygen Saturation - - Inhaled Oxygen Concentration - - Weight 74.8 kg (165 lb) 09/24/2024 9:00 AM EDT Height 172.7 cm (5' 8 ) 09/24/2024 9:00 AM EDT Body Mass Index 25.09 09/24/2024 9:00 AM EDT Plan of Treatment Upcoming Encounters Date Type Department Care Team (Latest Contact Info) Description 10/28/2024 1:45 PM EDT Appointment [facility] Nuclear Medicine [address] [place] [phone] 10/29/2024 7:30 AM EDT Hospital Encounter [facility] OR [address] [place] [phone] Jalen Ferguson MD [address] [address] 10/29/2024 7:30 AM EDT - 10/29/2024 11:00 AM EDT Surgery [facility] OR [address] [place] [phone] Jalen Ferguson MD [address] [address] LUMPECTOMY after magnetic seed localization; [place] Lymph Node Biopsy - Bilateral [33643 (CPT??) +1 more] 10/29/2024 12:00 PM EDT [facility]ointment [facility] at [address] [place] [phone] 11/18/2024 8:00 AM EDT Office Visit General Surgery - [place] 175 [facility] [address] [place] [phone] Jalen Ferguson MD 175 [facility] [address] [place] [address] Scheduled Procedures Name Priority Associated Diagnoses Date/Ti me LUMPECTOMY Infiltrating ductal carcinoma of breast, right (CMS/HCC V24, CMS/HCC V28) Infiltrating lobular carcinoma of breast, stage 1, left (CMS/HCC V24, CMS/HCC V28) 10/29/2024 7:30 AM EDT EXCISION BIOPSY LYMPH NODE SENTINEL BREAST Infiltrating ductal carcinoma of breast, right (CMS/HCC V24, CMS/HCC V28) Infiltrating lobular carcinoma of breast, stage 1, left (CMS/HCC V24, CMS/HCC V28) 10/29/2024 7:30 AM EDT Health Maintenance Due Date Last Done Comments Diabetes: Annual Foot Exam 01/18/1966 Diabetes: Annual Retina Eye Exam 01/18/1966 Zoster Vaccines (1 of 2) 01/18/1975 RSV Immunization Adult Patients (1 - Risk 60-74 years 1-dose series) 2016 Pneumococcal Vaccine: 50+ Years (3 of 3 - PPSV23, PCV20 or PCV21) 09/02/2021 07/08/2021, 03/18/2015 Colorectal Cancer Screening: Stool Based Tests (FOBT/FIT) 05/28/2022 Depression Screening 05/28/2022 Falls Risk Assessment 05/28/2022 Medicare Annual Wellness Visit 05/28/2022 Social Influencers of Health Screening 05/28/2022 Diabetes: Annual Urine Albumin-Creatinine Ratio (uACR) 06/04/2022 03/31/2021 Diabetes: Blood Sugar Control Test (HGBA1C) 06/04/2022 09/02/2021 Diabetes: Annual GFR (Glomerular Filtration Rate) 09/02/2022 09/02/2021 Hypertension/CHF/CAD Annual BMP Blood Test 09/02/2022 09/02/2021 COVID-19 Vaccine () 02/18/2024 03/21/2023, 07/06/2021, 09/22/2020 DTaP,Tdap,and Td Vaccines (2 - Td or Tdap) 08/12/2024 08/12/2014 Cholesterol Screening (Lipid Panel) 06/21/2026 06/21/2021 Breast Cancer Screening 09/05/2026 09/06/19, 08/26/2024, 07/25/2024, Additional history exists Osteoporosis Screening (Bone Density [...] age to complete this topic Meningococcal B Vaccine Aged Out No l onger eligible based on patient's age to complete this topic RSV Immunization Patients Under 20 months Aged Out No longer eligible based on patient's age to complete this topic Varicella Vaccines Aged Out No longer eligible based on patient's age to complete this topic Medical Devices Implanted Type Area Social Science Research Assistant Device Identifier Shelf Expiration Date Model / Serial / Lot Marker Brst Biopsy Site Hydromark - [id number] Implanted:Qty: 1 on 09/05/2024 by Marina May MD at [facility] Breast Implants Right: Breast DEVICOR [employer] [id number] 12/31/2026 4010-05- 10-T1 / / [id number] 2D Marker Hydromark 15g Butterfly T4 Ti - [id number] - [id number] Implanted:Qty: 1 on 08/26/2024 by Moses Basurto MD at [facility] Imaging Implants Left: Breast DEVICOR MED PROD MAMMOTOME [id number] 04/30/2027 4010-02- 15-T4 / [id number] / [id number] 7D Marker 18ga Magseed 7cm - [id number] - [id number] Implanted:Qty: 2 on 09/27/2024 by Moses Basurto MD at [facility] Imaging Implants N/A: Breast [employer]IC[employer] [id number] 12/16/2025 [id number] / [id number] Description:BILATERAL Procedures Procedure Name Priority Date/Time Associated Diagnosis Comments MG MAMMO DIGITAL DIAGNOSTIC CLIP POST US/MR GUIDE BILAT Routine 09/27/2024 2:31 PM EDT Infiltrating ductal carcinoma of bilateral female breasts (CMS/HCC V24, CMS/HCC V28) US PLCMNT BREAST LOC DEV 1ST MAGSEED LESION RIGHT Routine 09/27/2024 2:23 PM EDT Infiltrating ductal carcinoma of bilateral female breasts (CMS/HCC V24, CMS/HCC V28) VENIPUNCTURE CHARGE Routine 09/18/2024 9 :40 AM EDT Personal history of malignant neoplasm of breast MG MAMMO DIGITAL DIAGNOSTIC POST CLIP RIGHT Routine 09/05/2024 8:42 AM EDT Breast asymmetry MG STEREO BX BREAST PERC 1ST LESION RIGHT Routine 09/05/2024 8:41 AM EDT Breast asymmetry TISSUE EXAM Routine 09/05/2024 8:14 AM EDT Breast asymmetry HER-2 CHAPO, FISH Routine 09/05/2024 8:14 AM EDT Breast asymmetry MG MAMMO DIGITAL DIAGNOSTIC POST CLIP RIGHT Routine 08/26/2024 9:35 AM EDT Category 3 mammography result with short follow-up interval suggested for probably benign finding US BX BREAST PERC 1ST LESION LEFT Routine 08/26/2024 9:28 AM EDT Breast mass TISSUE EXAM Routine 08/26/2024 9:16 AM EDT Breast mass HER-2 CHAPO, FISH Routine 08/26/2024 9:16 AM EDT Breast mass MG MAMMO DIGITAL DIAGNOSTIC W MOSES BILAT [...] Recently Relevant to Health Maintenance Results * MG Mammo Digital Diagnostic Clip Post US/MR Guide Bilat (09/27/2024 2:31 PM EDT) Anatomical Region Laterality Modality Breast Bilateral Mammography 09/27/2024 2:46 PM EDT Impressions 09/27/2024 2:54 PM EDT Ultrasound was used to localize and guide right breast preoperative localization marker placement. ?? There was no evidence of immediate complication. Postprocedure right mammography was performed HISTORY: Left breast cancer. Preoperative localization requested PROCEDURE: Informed consent was obtained. A board certified arts therapist assisted with the consent process and was participating throughout the procedure A procedure pause was performed including patient identification using 3 identifiers. Preprocedure imaging demonstrated: ??A hypoechoic abnormality with bright reflector consistent with previous mass and biopsy site marker in the 11:00 position 10 cm from the left nipple Using sterile technique and lidocaine anesthesia, ultrasound-guided ??surgical site localization of the left breast was performed from a lateral approach. An 18-gauge introducer was used. ??There was documentation of appropriate deployment of the preoperative localization device with digital archive. A radiopaque MAG SEED preoperative localization marker was deployed at the site for future reference. Upon completion of the procedure, pressure was applied until adequate hemostasis was obtained. The patient tolerated the procedure well and was discharged in good condition after being educated regarding post procedure care and instructions and contact information should she be concerned about a complication. Postprocedure LEFT mammography: ??Was performed Laterality: LEFT TISSUE DENSITY: There are scattered areas of fibroglandular density. (BI-RADS category B) FINDINGS: ??The surgical site marker, MAG SEED, appears appropriately positioned. There is no evidence of immediate complication. No new suspicious findings. Distance from surgical site localizing MAG SEED from Center of left breast target: ??The MAG SEED is closely related to the target IMPRESSION: ?? Ultrasound was used to localize and guide left breast preoperative localization marker placement. ?? There was no evidence of immediate complication. Postprocedure left mammography was performed RECOMMENDATION: Pathology pending for both breasts. -------- FINAL REPORT -------- Dictated By: Moses Basurto Dictated Date: 09/27/2024 14:46 ET Assigned Physician: Moses Basurto Reviewed and Electronically Signed By: Moses Basurto Signed Date: 09/27/2024 14:54 ET Workstation ID: [id number] Transcribed By: Self Edit Transcribed Date: 09/27/2024 14:46 ET Narrative 09/27/2024 2:54 PM EDT EXAM: ULTRASOUND ??GUIDED BREAST SURGICAL SITE LOCALIZATION, RIGHT PRE OPERATIVE MAG SEED PLACEMENT : ??Mag seed placement POSTPROCEDURE MAMMOGRAPHY: Was performed ULTRASOUND ??GUIDED BREAST SURGICAL SITE LOCALIZATION, LEFT PRE OPERATIVE MAG SEED PLACEMENT : ??Mag seed placement POSTPROCEDURE MAMMOGRAPHY: Was performed EXAM DATE AND TIME: 09/27/2024 12:52 PM HISTORY: Right breast cancer. MAG SEED localization prior to surgery PROCEDURE: Informed consent was obtained. ?? A board certified arts therapist assisted with the consent process on each side and remained available and participated throughout the entire procedure in both breasts. A procedure pause was performed including patient identification using 3 identifiers. Preprocedure imaging demonstrated: ??There is a hypoechoic abnormality with a bright internal reflector consistent with previous Hydromark biopsy site marker placement in the 10:00 position 14 cm from the right nipple Using sterile technique and lidocaine anesthesia, ultrasound-guided ??surgical site localization of the right breast was performed from a lateral approach. An 18-gauge introducer was used. ??There was documentation of appropriate deployment of the preoperative localization device with digital archive. A radiopaque MAG SEED preoperative localization marker was deployed at the site for future reference. Upon completion of the procedure, pressure was applied until adequate hemostasis was obtained. The patient tolerated the procedure well and was discharged in good condition after being educated regarding post procedure care and instructions and contact information should she be concerned about a complication. Postprocedure RIGHT mammography: ??Was performed Laterality: RIGHT TISSUE DENSITY: There are scattered areas of fibroglandular density. (BI-RADS category B) FINDINGS: ??The surgical site marker, MAG SEED, appears appropriately positioned. There is no evidence of immediate complication. No new suspicious findings. Distance from surgical site localizing MAG SEED from Center of target: ??The magnetic seed is closely related to the target. Procedure Note Moses Basurto MD - 09/27/2024 EXAM: ULTRASOUND GUIDED BREAST SURGICAL SITE LOCALIZATION, RIGHT PRE OPERATIVE MAG SEED PLACEMENT : Mag seed placement POSTPROCEDURE MAMMOGRAPHY: Was performed ULTRASOUND GUIDED BREAST SURGICAL SITE LOCALIZATION, LEFT PRE OPERATIVE MAG SEED PLACEMENT : Mag seed placement POSTPROCEDURE MAMMOGRAPHY: Was performed EXAM DATE AND TIME: 09/27/2024 12:52 PM HISTORY: Right breast cancer. MAG SEED localization prior to surgery PROCEDURE: Informed consent was obtained. A board certified arts therapist assisted with theconsent process on each side and remained available and participatedthroughout the entire procedure in both breasts. A procedure pause was performed including patient identification using 3identifiers. Preprocedure imaging demonstrated: There is a hypoechoic abnormality witha bright internal reflector consistent with previous Hydromark biopsy sitemarker placement in the 10:00 position 14 cm from the right nipple Using sterile technique and lidocaine anesthesia, ultrasound-guidedsurgical site localization of the right breast was performed from alateral approach. An 18-gauge introducer was used. There was documentation of appropriatedeployment of the preoperative localization device with digital archive. A radiopaque MAG SEED preoperative localization marker was deployed at thete for future reference. Upon completion of the procedure, pressure was applied until adequatehemostasis was obtained. The patient tolerated the procedure well and was discharged in goodcondition after being educated regarding post procedure care andinstructions and contact information should she be concerned about acomplication. Postprocedure RIGHT mammography: Was performed Laterality: RIGHT TISSUE DENSITY: There are scattered areas of fibroglandular density.(BI-RADS category B) FINDINGS: The surgical site marker, MAG SEED, appears appropriatelypositioned. There is no evidence of immediate complication. No new suspicious findings. Distance from surgical site localizing MAG SEED from Center of target:The magnetic seed is closely related to the target. IMPRESSION: Ultrasound was used to localize and guide right breast preoperativelocalization marker placement. There was no evidence of immediate complication. Postprocedure right mammography was performed HISTORY: Left breast cancer. Preoperative localization requested PROCEDURE: Informed consent was obtained. A board certified arts therapist assisted with theconsent process and was participating throughout the procedure A procedure pause was performed including patient identification using 3identifiers. Preprocedure imaging demonstrated: A hypoechoic abnormality with brightreflector consistent with previous mass and biopsy site marker in the11:00 position 10 cm from the left nipple Using sterile technique and lidocaine anesthesia, ultrasound-guidedsurgical site localization of the left breast was performed from a lateralapproach. An 18-gauge introducer was used. There was documentation of appropriatedeployment of the preoperative localization device with digital archive. A radiopaque MAG SEED preoperative localization marker was deployed at thete for future reference. Upon completion of the procedure, pressure was applied until adequatehemostasis was obtained. The patient tolerated the procedure well and was discharged in goodcondition after being educated regarding post procedure care andinstructions and contact information should she be concerned about acomplication. Postprocedure LEFT mammography: Was performed Laterality: LEFT TISSUE DENSITY: There are scattered areas of fibroglandular density.(BI-RADS category B) FINDINGS: The surgical site marker, MAG SEED, appears appropriatelypositioned. There is no evidence of immediate complication. No new suspicious findings. Distance from surgical site localizing MAG SEED from Center of left breasttarget: The MAG SEED is closely related to the target IMPRESSION: Ultrasound was used to localize and guide left breast preoperativelocalization marker placement. There was no evidence of immediate complication. Postprocedure left mammography was performed RECOMMENDATION: Pathology pending for both breasts. -------- FINAL REPORT -------- Dictated By: Moses Basurto Dictated Date: 09/27/2024 14:46 ET Assigned Physician: Moses Basurto Reviewed and Electronically Signed By: Moses Basurto Signed Date: 09/27/2024 14:54 ET Workstation ID: [id number] Transcribed By: Self Edit Transcribed Date: 09/27/2024 14:46 ET us Jalen Ferguson MD IMG BI PROCEDURES Final Result * US Plcmnt Breast Seed Loc Dev 1st Lesion Right (09/27/2024 2:23 PM EDT) Anatomical Region Laterality Modality Breast Right Ultrasound Impressions 09/27/2024 2:54 PM EDT Ultrasound was used to localize and guide right breast preoperative localization marker placement. ?? There was no evidence of immediate complication. Postprocedure right mammography was performed HISTORY: Left breast cancer. Preoperative localization requested PROCEDURE: Informed consent was obtained. A board certified arts therapist assisted with the consent process and was participating throughout the procedure A procedure pause was performed including patient identification using 3 identifiers. Preprocedure imaging demonstrated: ??A hypoechoic abnormality with bright reflector consistent with previous mass and biopsy site marker in the 11:00 position 10 cm from the left nipple Using sterile technique and lidocaine anesthesia, ultrasound-guided ??surgical site localization of the left breast was performed from a lateral approach. An 18-gauge introducer was used. ??There was documentation of appropriate deployment of the preoperative localization device with digital archive. A radiopaque MAG SEED preoperative localization marker was deployed at the site for future reference. Upon completion of the procedure, pressure was applied until adequate hemostasis was obtained. The patient tolerated the procedure well and was discharged in good condition after being educated regarding post procedure care and instructions and contact information should she be concerned about a complication. Postprocedure LEFT mammography: ??Was performed Laterality: LEFT TISSUE DENSITY: There are scattered areas of fibroglandular density. (BI-RADS category B) FINDINGS: ??The surgical site marker, MAG SEED, appears appropriately positioned. There is no evidence of immediate complication. No new suspicious findings. Distance from surgical site localizing MAG SEED from Center of left breast target: ??The MAG SEED is closely related to the target IMPRESSION: ?? Ultrasound was used to localize and guide left breast preoperative localization marker placement. ?? There was no evidence of immediate complication. Postprocedure left mammography was performed RECOMMENDATION: Pathology pending for both breasts. -------- FINAL REPORT -------- Dictated By: Moses Basurto Dictated Date: 09/27/2024 14:46 ET Assigned Physician: Moses Basurto Reviewed and Electronically Signed By: Moses Basurto Signed Date: 09/27/2024 14:54 ET Workstation ID: [id number] Transcribed By: Self Edit Transcribed Date: 09/27/2024 14:46 ET Narrative 09/27/2024 2:54 PM EDT EXAM: ULTRASOUND ??GUIDED BREAST SURGICAL SITE LOCALIZATION, RIGHT PRE OPERATIVE MAG SEED PLACEMENT : ??Mag seed placement POSTPROCEDURE MAMMOGRAPHY: Was performed ULTRASOUND ??GUIDED BREAST SURGICAL SITE LOCALIZATION, LEFT PRE OPERATIVE MAG SEED PLACEMENT : ??Mag seed placement POSTPROCEDURE MAMMOGRAPHY: Was performed EXAM DATE AND TIME: 09/27/2024 12:52 PM HISTORY: Right breast cancer. MAG SEED localization prior to surgery PROCEDURE: Informed consent was obtained. ?? A board certified arts therapist assisted with the consent process on each side and remained available and participated throughout the entire procedure in both breasts. A procedure pause was performed including patient identification using 3 identifiers. Preprocedure imaging demonstrated: ??There is a hypoechoic abnormality with a bright internal reflector consistent with previous [employer] biopsy site marker placement in the 10:00 position 14 cm from the right nipple Using sterile technique and lidocaine anesthesia, ultrasound-guided ??surgical site localization of the right breast was performed from a lateral approach. An 18-gauge introducer was used. ??There was documentation of appropriate deployment of the preoperative localization device with digital archive. A radiopaque MAG SEED preoperative localization marker was deployed at the site for future reference. Upon completion of the procedure, pressure was applied until adequate hemostasis was obtained. The patient tolerated the procedure well and was discharged in good condition after being educated regarding post procedure care and instructions and contact information should she be concerned about a complication. Postprocedure RIGHT mammography: ??Was performed Laterality: RIGHT TISSUE DENSITY: There are scattered areas of fibroglandular density. (BI-RADS category B) FINDINGS: ??The surgical site marker, MAG SEED, appears appropriately positioned. There is no evidence of immediate complication. No new suspicious findings. Distance from surgical site localizing MAG SEED from Center of target: ??The magnetic seed is closely related to the target. us Jalen Ferguson MD IMG US PROCEDURES Edited Result - Final * Venipuncture charge (09/18/2024 9:40 AM EDT) Extra Tube Hold for add-ons. 09/18/2024 1:01 PM EDT [facility] Comment:Auto resulted. Blood Venous blood specimen / Unknown Venipuncture / Unknown 09/18/2024 9:40 AM EDT 09/18/2024 11:57 AM EDT us Jalen Ferguson MD LAB BLOOD ORDERABLES Final Resu lt [facility] [address] [place] [address], * (ABNORMAL) MG Mammo Digital Diagnostic Clip Post MG Guide Right (Statistics) (09/05/2024 8:42 AM EDT) Only the most recent of2 resultswithin the time period is included. Anatomical Region Laterality Modality Breast Right Mammography 09/05/2024 9:22 AM EDT Addenda Addendum by Moses Basurto MD on 09/16/2024 12:24 PM EDT Addendum: The final pathology results from the procedure are now available; DATE: ??09/05/24 LOCATION: ??Upper outer quadrant right breast STEREOTACTICALLY GUIDED FINAL PATHOLOGY RESULT: ?? Final Diagnosis Breast, Right, 8 mm upper outer quadrant mass, core biopsy (clip): Invasive ductal carcinoma with mucinous features. ? Greatest length of carcinoma: 8mm Josef score: Grade 2 ? Glandular/tubular morphology: 3 Nuclear pleomorphism: 2 Mitotic rate: 1 In situ carcinoma: Not identified. Lymphovascular invasion: Not identified. ? Note: Routine stains show malignant cells with lobular cytomorphology arranged in solid sheets and in single file lines associated with extracellular mucin pools. Immunohistochemical stains are performed on block A2 and are interpreted as follows: -E-cadherin: Strongly and diffusely positive, indicating ductal phenotype. -CK5: Negative in carcinoma; no in situ component identified. -CD31: Highlights vessels; no vascular invasion identified. This pattern supports the above diagnosis. Controls stain appropriately. ? Breast Carcinoma Biomarkers: ?? Estrogen Receptor: POSITIVE (95% Positive nuclei, average intensity: strong) ?Internal controls appropriate Progesterone Receptor: POSITIVE (80% Positive nuclei, average intensity: strong) ??Internal controls appropriate HER2: EQUIVOCAL (2+) (3% of cells show strong complete membrane staining) CONCORDANCE: ??The final pathology results and imaging findings are concordant. The biopsy site marker is slightly inferiorly migrated. ??There is a residual target. ASSESSMENT: ?? BI-RADS 6: KNOWN BIOPSY-PROVEN MALIGNANCY RECOMMENDATION(S): 1: Surgical excision recommended BILATERAL COMMUNICATION: ??The patient has known biopsy proven left breast cancer. ?? The patient has a pending consultation with the breast surgery team. Addendum: ?? BREAST DENSITY: B - There are scattered areas of fibroglandular density. BI-RADS CATEGORY: 6 - KNOWN BIOPSY-PROVEN MALIGNANCY RECOMMENDATION: Surgical biopsy of bilateral breasts is recommended. ?? -------- ADDENDUM -------- Dictated By: Moses Basurto Dictated Date: 09/16/2024 12:17 ET Assigned Physician: Moses Basurto Reviewed and Electronically Signed By: Moses Basurto Signed Date: 09/16/2024 12:24 ET Workstation ID: [id number] Transcribed By: Self Edit Transcribed Date: 09/16/2024 12:17 ET Impressions 09/06/2024 2:37 PM EDT Stereotactic core biopsy of the focal asymmetry in the right upper outer breast. Pathology is pending. ??An addendum will be made when results become available. RECOMMENDATION: Pathology pending for the right breast. -------- FINAL REPORT -------- Dictated By: Marina May Dictated Date: 09/05/2024 09:22 ET Assigned Physician: Marina May Reviewed and Electronically Signed By: Marina May Signed Date: 09/06/2024 14:37 ET Workstation ID: [id number] Transcribed By: Self Edit Transcribed Date: 09/05/2024 09:27 ET Narrative 09/06/2024 2:37 PM EDT STEREOTACTIC BREAST CORE NEEDLE BIOPSY CLINICAL: ?? 69 years old, Female, referred for stereotactic breast biopsy. ?? COMPARISON: 08/14/2024, 01/12/2024, 07/03/2023 and 07/11/2023 PROCEDURE: ?? Informed consent was obtained. ??Preprocedure time out was performed per routine. ??The patient was positioned upright, and preliminary digital tomographic/stereotactic imaging of the right breast confirms the presence of a focal asymmetry in the upper outer quadrant at posterior depth. A superior approach was used. The skin was prepped using sterile technique. Cutaneous and subcutaneous anesthesia was achieved using 1% Lidocaine buffered with bicarbonate. ?? A standard 10-gauge core biopsy needle was advanced to the target, and satisfactory positioning was confirmed with pre- and post-fire imaging. ??A total of 6 vacuum assisted core biopsy specimens were obtained. Specimen radiograph reveals the presence of calcification. Specimens were sent for pathologic analysis, results pending. A barrel shaped postbiopsy clip was deployed to guillermina the biopsy site. ?? Postprocedure mammographic images disclose the clip to be 7 mm inferior to the the targeted site. There is a residual 6 mm asymmetry at the biopsy site. Specimens were sent for pathologic analysis, results pending. ??Hemostasis was achieved with manual compression. ??Dermabond and sterile gauze were applied, and the patient was given post biopsy instructions. There were no immediate complications. ??The patient tolerated the procedure well and left the department in good condition. Cedric Friedman FRAME SAMPLE AND PATTERN SUPERVISOR IMG BI PROCEDURES Edited Resul t - Final * (ABNORMAL) MG Stereo Bx Breast Perc 1st Lesion Right w/ MG Post Clip Imaging to follow (09/05/2024 8:41 AM EDT) Anatomical Region Laterality Modality Breast Right Mammography 09/05/2024 9:22 AM EDT Addenda Addendum by Moses Basurto MD on 09/16/2024 12:24 PM EDT Addendum: The final pathology results from the procedure are now available; DATE: ??09/05/24 LOCATION: ??Upper outer quadrant right breast STEREOTACTICALLY GUIDED FINAL PATHOLOGY RESULT: ?? Final Diagnosis Breast, Right, 8 mm upper outer quadrant mass, core biopsy (clip): Invasive ductal carcinoma with mucinous features. ? Greatest length of carcinoma: 8mm Josef score: Grade 2 ? Glandular/tubular morphology: 3 Nuclear pleomorphism: 2 Mitotic rate: 1 In situ carcinoma: Not identified. Lymphovascular invasion: Not identified. ? Note: Routine stains show malignant cells with lobular cytomorphology arranged in solid sheets and in single file lines associated with extracellular mucin pools. Immunohistochemical stains are performed on block A2 and are interpreted as follows: -E-cadherin: Strongly and diffusely positive, indicating ductal phenotype. -CK5: Negative in carcinoma; no in situ component identified. -CD31: Highlights vessels; no vascular invasion identified. This pattern supports the above diagnosis. Controls stain appropriately. ? Breast Carcinoma Biomarkers: ?? Estrogen Receptor: POSITIVE (95% Positive nuclei, average intensity: strong) ?Internal controls appropriate Progesterone Receptor: POSITIVE (80% Positive nuclei, average intensity: strong) ??Internal controls appropriate HER2: EQUIVOCAL (2+) (3% of cells show strong complete membrane staining) CONCORDANCE: ??The final pathology results and imaging findings are concordant. The biopsy site marker is slightly inferiorly migrated. ??There is a residual target. ASSESSMENT: ?? BI-RADS 6: KNOWN BIOPSY-PROVEN MALIGNANCY RECOMMENDATION(S): 1: Surgical excision recommended BILATERAL COMMUNICATION: ??The patient has known biopsy proven left breast cancer. ?? The patient has a pending consultation with the breast surgery team. Addendum: ?? BREAST DENSITY: B - There are scattered areas of fibroglandular density. BI-RADS CATEGORY: 6 - KNOWN BIOPSY-PROVEN MALIGNANCY RECOMMENDATION: Surgical biopsy of bilateral breasts is recommended. ?? -------- ADDENDUM -------- Dictated By: Moses Basurto Dictated Date: 09/16/2024 12:17 ET Assigned Physician: Moses Basurto Reviewed and Electronically Signed By: Moses Basurto Signed Date: 09/16/2024 12:24 ET Workstation ID: [id number] Transcribed By: Self Edit Transcribed Date: 09/16/2024 12:17 ET Impressions 09/06/2024 2:37 PM EDT Stereotactic core biopsy of the focal asymmetry in the right upper outer breast. Pathology is pending. ??An addendum will be made when results become available. RECOMMENDATION: Pathology pending for the right breast. -------- FINAL REPORT -------- Dictated By: Marina May Dictated Date: 09/05/2024 09:22 ET Assigned Physician: Marina May Reviewed and Electronically Signed By: Marina May Signed Date: 09/06/2024 14:37 ET Workstation ID: [id number] Transcribed By: Self Edit Transcribed Date: 09/05/2024 09:27 ET Narrative 09/06/2024 2:37 PM EDT STEREOTACTIC BREAST CORE NEEDLE BIOPSY CLINICAL: ?? 69 years old, Female, referred for stereotactic breast biopsy. ?? COMPARISON: 08/14/2024, 01/12/2024, 07/03/2023 and 07/11/2023 PROCEDURE: ?? Informed consent was obtained. ??Preprocedure time out was performed per routine. ??The patient was positioned upright, and preliminary digital tomographic/stereotactic imaging of the right breast confirms the presence of a focal asymmetry in the upper outer quadrant at posterior depth. A superior approach was used. The skin was prepped using sterile technique. Cutaneous and subcutaneous anesthesia was achieved using 1% Lidocaine buffered with bicarbonate. ?? A standard 10-gauge core biopsy needle was advanced to the target, and satisfactory positioning was confirmed with pre- and post-fire imaging. ??A total of 6 vacuum assisted core biopsy specimens were obtained. Specimen radiograph reveals the presence of calcification. Specimens were sent for pathologic analysis, results pending. A barrel shaped postbiopsy clip was deployed to guillermina the biopsy site. ?? Postprocedure mammographic images disclose the clip to be 7 mm inferior to the the targeted site. There is a residual 6 mm asymmetry at the biopsy site. Specimens were sent for pathologic analysis, results pending. ??Hemostasis was achieved with manual compression. ??Dermabond and sterile gauze were applied, and the patient was given post biopsy instructions. There were no immediate complications. ??The patient tolerated the procedure well and left the department in good condition. Cedric Friedman FRAME SAMPLE AND PATTERN SUPERVISOR IMG BI PROCEDURES Edited Resul t - Final * Tissue exam (09/05/2024 8:14 AM EDT) Only the most recent of2 resultswithin the time period is included. Addendum This case was sent t o [facility], [address], [place], [place], (CLIA #[id number]) for HER2 Breast studies. Their diagnosis is as follows: FISH Analysis HER2 Breast Results: Negative Interpretation: RESULT INTERPRETATION HER2 Signals/Nucleus 2.6 CEN17 Signals/Nucleus 2.2 HER2/CEN17 Signal Ratio 1.2 Negative Number of Observers 1 Group 5 No IHC Needed Results show no evidence of HER2 amplification and a HER2/CEN17 ratio of <2.0 with an average HER2 copy number <4.0 signals per cell. This is a NEGATIVE result. Electronic Signature Alaina Aguayo M.D., Pathologist Report Date: 09/14/2024 04:32:21 PM ET (Full report on file) 10:51 AM EDT [facility] Addendum electronically signed by Jesica Zazueta MD on 09/16/2024 at 10:51 AM Final Diagnosis Breast, Right, 8mm upper outer quadrant mass, core biopsy (clip): Invasive ductal carcinoma with mucinous features. Greatest length of carcinoma: 8mm Josef score: Grade 2 Glandular/tubular morphology: 3 Nuclear pleomorphism: 2 Mitotic rate: 1 In situ carcinoma: Not identified. Lymphovascular invasion: Not identified. Note: Routine stains show malignant cells with lobular cytomorphology arranged in solid sheets and in single file lines associated with extracellular mucin pools. Immunohistochemical stains are performed on block A2 and are interpreted as follows: -E-cadherin: Strongly and diffusely positive, indicating ductal phenotype. -CK5: Negative in carcinoma; no in situ component identified. -CD31: Highlights vessels; no vascular invasion identified. This pattern supports the above diagnosis. Controls stain appropriately. Breast Carcinoma Biomarkers: Estrogen Receptor: POSITIVE (95% Positive nuclei, average intensity: strong) Internal controls appropriate Progesterone Receptor: POSITIVE (80% Positive nuclei, average intensity: strong) Internal controls appropriate HER2: EQUIVOCAL (2+) (3% of cells show strong complete membrane staining) All external controls stained appropriately Note: HER2-Chapo FISH will be performed and will be reported in a supplemental report. Patients with breast cancers that are HER2 IHC 3+ or IHC 2+/CAROLYNE amplified may be eligible for several therapies that disrupt HER2 signaling pathways. Invasive breast cancers that test 'HER2-negative' (IHC 0, 1+ or 2+/CAROLYNE not-amplified) are more specifically considered 'HER2-negative for protein overexpression/gene amplification' since non-overexpressed levels of the HER2 protein may be present in these cases. Patients with breast cancers that are HER2 IHC 1+ or IHC 2+/CAROLYNE not amplified may be eligible for a treatment that targets non-amplified/non-ove rexpressed levels of HER2 expression for cytotoxic drug delivery (IHC 0 results do not result in eligibility currently). FFPE Block: A2 Cold Ischemia and Fixation Times: Meets requirements specified in the latest version of the ASCO/CAP guidelines These tests have not been validated for use on decalcified tissue, non-formalin fixed tissue, or tissue fixed outside of the ASCO/CAP guidelines. ASCO/CAP criteria for evaluation: ER: Staining evaluation ER: Low positive=1-10% positive nuclei, Positive >10% positive nuclei MN: Staining evaluation MN: Positive= >1% positive nuclei. HER2: Staining evaluation for HER2 (ASCO/CAP GUIDELINES 2018): - NEGATIVE (0): No staining or incomplete barely perceptible staining in <10 % of cells. - NEGATIVE (1+): Incomplete barely perceptible staining in >10 % of cells. - EQUIVOCAL (2+): Strong complete staining in 10% or less of cells or weak or moderate staining in >10 % cells. - POSITIVE (3+): Strong complete staining in more than 10% of cells. Detection system: Polymer HRP, [facility]-developed tests In Vitro Diagnostic: ER clone SP1 Cell Kory, MN clone 16 Leica Analyte specific reagents: HER2 clone EP3 [employer] 5 10:51 AM EDT [facility] Comment Secondary review for new malignancy performed by Dr. Brian with agreement. Jesica Zazueta MD notified Dr. Basurto by Vito 2:13 PM EDT 09/09/24 10:51 AM EDT [facility] Clinical Information Breast asymmetry [N64.89], 6 10g samples Ultrasound shows: Lobulated mass, 8mm upper outer quadrant Probability that the target was sampled: High History of previous breast cancer: Yes, recent left breast invasive lobular History of non-breast cancer: No History of atypical hyperplasia: No History of radiation/chemotherap y: No 10:51 AM T [facility] Gross Description A. Breast, Right, 8mm upper outer quadrant mass: Labeled right breast tissue . Received in formalin, on a plastic collection device, are six soft to rubbery, yellow-white to pink, stringy, fibrofatty tissue cores and multiple core fragments, ranging from less than 0.1 cm to 3.2 x 0.4 cm, submitted in toto in one cassette, between sponges, multiple pieces, x3. Please note: Small tissue fragments may not survive processing. Time tissue collected: 8:27 AM (09/05/2024) Time tissue put in formalin: 8:28 AM (09/05/2024) Time tissue exits final stage of formalin on tissue processor: 9:00 PM (09/05/2024) Total fixation time (Ideally greater than 6 hours and less than 72 hours): Approximately 11.5 hours dvb/AL 10:51 AM EDT [facility] Disclaimer NOTE: The immunohistochemical tests and in situ hybridization tests were developed and their performance characteristics were determined by [facility]. They have not been cleared or approved by the U.S. Food and Drug Administration. The FDA has determined that such clearance or approval is not necessary. These tests are used for clinical purposes. They should not be regarded as investigational or for research. This laboratory is certified under the Clinical Laboratory Improvement Amendments of 1988 (CLIA) as qualified to perform high complexity clinical laboratory testing. (controls appropriate) Unless otherwise specified, all tissue is 10% NB formalin fixed and paraffin embedded. 10:51 AM EDT [facility] Tissue Right breast structure / Unknown 09/05/2024 8:14 AM EDT 09/05/2024 8:49 AM EDT us Marina May MD LAB PATHOLOGY ORDERABLES Edited Result - Final [facility] ([facility] [address] [place] [address], [place] [phone] * HER-2 CHAPO, FISH (09/05/2024 8:14 AM EDT) Only the most recent of2 resultswithin the time period is included. Scan Result See Scanned Result 09/16/2024 10:22 AM EDT EXTERNAL LAB (NON-INTERFAC ED) Tissue Right breast structure / Unknown 09/05/2024 8:14 AM EDT 09/10/2024 6:11 AM EDT Marina May MD LAB CYTOGENETICS ORDERABLES Marianela l Result EXTERNAL LAB (NON-INTERFACED) * (ABNORMAL) US Bx Breast Perc 1st Lesion Left (08/26/2024 9:28 AM EDT) Anatomical Region Laterality Modality Breast Left Ultrasound 08/26/2024 10:5 6 AM EDT Addenda Addendum by Moses Basurto MD on 08/28/2024 4:22 PM EDT Addendum: The final pathology results from the procedure are now available; DATE: ??08/26/2024 LOCATION: ??11 o'clock position, 10 cm from left nipple ULTRASOUND-GUIDED FINAL PATHOLOGY RESULT: ?? Final Diagnosis Left breast, 11 o'clock, 10 cm from nipple, butterfly clip, ultrasound-guided core biopsy: Invasive lobular carcinoma ? Greatest length of carcinoma: 9 mm [place] score: Grade 2 Glandular/tubular morphology: 3 Nuclear pleomorphism: 2 Mitotic rate: 1 In situ carcinoma: Present, LCIS, classic type Lymphovascular invasion: Not identified CONCORDANCE: ??The final pathology results and imaging findings are concordant. The patient is scheduled to undergo stereotactic right breast biopsy in the near future. ASSESSMENT: ?? BI-RADS 6: KNOWN BIOPSY-PROVEN MALIGNANCY RECOMMENDATION(S): 1: Surgical consultation recommended LEFT COMMUNICATION: ??Dr. Basurto notified the patient of the findings and recommendations for surgical consult at 1535 hours on 08/28/2024. Staff is attempting to schedule the contralateral stereotactic biopsy in the immediate future. Laine, of the Department staff, assisted with Kinyarwanda translation. ??The patient confirmed understanding and expressed a desire to consult with the breast cancer multidisciplinary team at the [facility] at [facility]. ??Our staff will facilitate scheduling a consult. Addendum: ?? BREAST DENSITY: B - There are scattered areas of fibroglandular density. BI-RADS CATEGORY: 6 - KNOWN BIOPSY-PROVEN MALIGNANCY RECOMMENDATION: Surgical consultation/management recommended for the left breast. Core biopsy of right breast recommended. -------- ADDENDUM -------- Dictated By: Moses Basurto Dictated Date: 08/28/2024 13:58 ET Assigned Physician: Moses Basurto Reviewed and Electronically Signed By: Moses Basurto Signed Date: 08/28/2024 16:22 ET Workstation ID: [id number] Transcribed By: Self Edit Transcribed Date: 08/28/2024 14:04 ET Impressions 08/26/2024 11:02 AM EDT No sonographic correlate to the RIGHT breast mass. ??Stereotactic RIGHT breast biopsy will be scheduled for a future date. ULTRASOUND was used to localize and guide LEFT breast biopsy. ?? ULTRASOUND was used to guide placement of a biopsy site marker. There was no evidence of immediate complication. Postprocedure mammography was performed. An addendum will be generated when the pathology results become available RECOMMENDATION: Pathology pending for the left breast. Location: [address], [address] -------- FINAL REPORT -------- Dictated By: Moses Basurto Dictated Date: 08/26/2024 10:56 ET Assigned Physician: Moses Basurto Reviewed and Electronically Signed By: Moses Basurto Signed Date: 08/26/2024 11:02 ET Workstation ID: [id number] Transcribed By: Self Edit Transcribed Date: 08/26/2024 10:56 ET Narrative 08/26/2024 11:02 AM EDT EXAM: ULTRASOUND ??GUIDED BREAST BIOPSY, LEFT BIOPSY SITE MARKER PLACEMENT : ??Biopsy site marker was placed POSTPROCEDURE MAMMOGRAPHY: Was performed EXAM DATE AND TIME: 08/26/2024 9:10 AM HISTORY: Suspicious left breast mass. ??Tissue diagnosis requested. Exhaustive scanning of the right breast was performed in an effort to allow ultrasound-guided right breast biopsy. ??However, no suspicious finding on right breast ultrasound was demonstrated. Therefore, the patient will be scheduled for stereotactic right breast biopsy in the future. PROCEDURE: Informed consent was obtained. A procedure pause was performed including patient identification using 3 identifiers. A board certified arts therapist assisted with the consent process and with translation throughout the procedure and during the review of post procedure care instructions. Preprocedure imaging demonstrated: ??A slightly irregular 0.6 cm hypoechoic mass in the 11 o'clock position 10 cm from the left nipple. ??This appears to correlate in size, shape and location to the finding on the mammogram. Using sterile technique and lidocaine anesthesia, ultrasound-guided ??biopsy of the left breast was performed from a medial approach. A 14 gauge Spring-loaded core biopsy device was used. ??There was documentation of appropriate needle placement with digital archive. SPECIMEN RADIOGRAPHY: ??Was not performed. 4 specimens were placed in formalin and submitted for pathologic evaluation. A radiopaque marker was deployed at the site for future reference. BIOPSY SITE MARKER SHAPE: ??BUTTERFLY Upon completion of the procedure, pressure was applied until adequate hemostasis was obtained. The patient tolerated the procedure well and was discharged in good condition after being educated regarding post procedure care and instructions and contact information should she be concerned about a complication. An addendum will be generated when the pathology results become available. Postprocedure mammography: ??Was performed Laterality: LEFT TISSUE DENSITY: There are scattered areas of fibroglandular density. (BI-RADS category B) FINDINGS: ??The biopsy site marker appears appropriately positioned. There is no evidence of immediate complication. No new suspicious findings. us Cedric Friedman FRAME SAMPLE AND PATTERN SUPERVISOR IMG US PROCEDURES Edited Resul t - Final * (ABNORMAL) MG Mammo Digital Diagnostic w [...] recommended. Mammo Location: [facility], [address] [place] [address], [id number], . -------- FINAL REPORT -------- Dictated By: Marina May Dictated Date: 07/25/2024 14:29 ET Assigned Physician: Marina May Reviewed and Electronically Signed By: Marina May Signed Date: 07/25/2024 14:54 ET Workstation ID: [id number] Transcribed By: Self Edit Transcribed Date: 07/25/2024 [...] recommended. Mammo Location: [facility], [address] [place] [address], [id number], . -------- FINAL REPORT -------- Dictated By: Marina May Dictated Date: 07/25/2024 14:29 ET Assigned Physician: Marina May Reviewed and Electronically Signed By: Marina May Signed Date: 07/25/2024 14:54 ET Workstation ID: [id number] Transcribed By: Self Edit Transcribed Date: 07/25/2024 14:34 ET us Cedric Friedman FRAME SAMPLE AND PATTERN SUPERVISOR IMG BI PROCEDURES Final Result * (ABNORMAL) [...] recommended. Mammo Location: [facility], [address] [place] [address], [id number], . -------- FINAL REPORT -------- Dictated By: Marina May Dictated Date: 07/25/2024 14:29 ET Assigned Physician: Marina May Reviewed and Electronically Signed By: Marina May Signed Date: 07/25/2024 14:54 ET Workstation ID: [id number] Transcribed By: Self Edit Transcribed Date: 07/25/2024 [...] recommended. Mammo Location: [facility], [address] [place] [address], [id number], . -------- FINAL REPORT -------- Dictated By: Marina May Dictated Date: 07/25/2024 14:29 ET Assigned Physician: Marina May Reviewed and Electronically Signed By: Marina May Signed Date: 07/25/2024 14:54 ET Workstation ID: [id number] Transcribed By: Self Edit Transcribed Date: 07/25/2024 14:34 ET us Cedric Friedman FRAME SAMPLE AND PATTERN SUPERVISOR IMG US PROCEDURES Final Result * DXA [...] normal bone density by WHO criteria. [facility] Department of Internal Medicine recommends using [...] alternative screening schedule based on ashley Kelly., [facility] July 07, 2011 for patients with osteopenia [...] normal bone density by WHO criteria. [facility] Department of Internal Medicine recommendsusing National [...] FRAX. Optional alternative screening schedule based on yuridia Kelly al., NEJMJanuary 2011 for patients with osteopenia (based on hip BMD T-score) is as follows: * advanced osteopenia (T scores -2.00 to -2.49), BMD testing every year * moderate osteopenia (T scores -1.50 to -1.99), BMD testing every 5years mild osteopenia or normal BMD (T scores -1.50 and higher), BMD testingevery 15 years Result [facility] CHAUDHARY IMG DXA PROCEDURES Final Resu lt * Annual BMP Blood Test (09/02/2021) [facility] Annual BMP Blood Test abstracted Result [facility] HEALTH MAINTENANCE Final Result * (ABNORMAL) Hemoglobin A1c (09/02/2021) [facility] Hemoglobin A1C 7.1(A) <=6.5 % Blood Venous blood specimen / Unknown Result [facility] LAB BLOOD ORDERABLES Marianela l Result * Lipid panel (06/21/2021) [facility] LDL/HDL Ratio 2 0 - 4 Triglycerides 66 0 - 150 mg/dL Cholesterol 188 0 - 200 mg/dL HDL 77 >=40 mg/dL LDL Cholesterol 98 0 - 150 mg/dL Blood Venous blood specimen / Unknown Result [facility] Provider LAB BLOOD ORDERABLES Marianela l Result * Urine Albumin Creatinine Ratio (03/31/2021) [facility] Urine Albumin Creatinine Ratio abstracted us Historical Provider HEALTH MAINTENANCE Final Result * Hepatitis C Screening (12/06/2017) Hepatitis C Screening abstracted us Historical Provider HEALTH MAINTENANCE Final Result from Last 3 Months or Most Recently Relevant to Health Maintenance Insurance [facility] MEDICARE Member Subscriber Plan / Payer (Ef fective 2021-Present) Name:Mary Miller Relation to Subscriber:Self Name:Mary Miller Payer ID:[id number] Group ID:[id number] Type:Not on file Address: [place] [address] [id number] Care Teams Human Factors Advisor Lead Relationship Specialty Start Date End Date Cedric Friedman FNP [address] [place] [address] PCP - General Family Medicine 07/25/24
--- OUTSIDE RECORDS SUMMARY | 2024-10-14 10:23 | XMS_ITS | Encounter Summary ---
Author Organization [email or web address] [facility] Address [address] [place] [address] Care Team Providers Care City Superintendent Name Role Phone Jade Plata MD Primary Care Provider Unavail able Shanna Álvarez MD Unavailable [phone] Marina Love MD Primary Care Provider [phone] [facility], Pcp Primary Care Provider Unavailabl e [facility], [facility]cp Primary Care Provider UnavailDejah Jacobs DNP Unavailable [phone] Encounter Details Date Type Department Care Team Description 09/23/2019 Conservation Worker Report Medical Records [address] [place] [id number] [facility] Social History Tobacco Use Types Packs/Day Years [...] filedocumented in this encounter Care Teams City Superintendent Relationship Specialty Start Date End Date Jade Plata MD PCP - General Internal Medicine 04/08/19 04/04/21 Marina Love MD [address] [place] [address] [id number] PCP - General Internal Medicine 04/05/21 10/20/21 [facility] Pcp [address] [place] [id number] PCP - General Internal Medicine 10/21/21 08/10/22 [facility]cp [address] [place] [address] PCP - General Internal Medicine 08/11/22 Shanna Álvarez MD Specialist Cardiology 02/10/21 Dejah Peoples, DILIP [address] [place] [address] Specialist Nurse Practitioner Family 02/28/24 documented as of this encounter
--- OUTSIDE RECORDS SUMMARY | 2024-10-14 10:23 | XMS_ITS | Encounter Summary ---
Author Organization [facility] Address [address] [place] [address] Care Team Providers Care Professor Of Apologetics Name Role Phone Tiffanie Ding MD Primary Care Provider Un available Jade Plata MD Primary Care Provider Unavail able Shanna Álvarez MD Unavailable [phone] Marina Love MD Primary Care Provider [phone] [facility], Pcp Primary Care Provider Unavailabl e [facility], Pcp Primary Care Provider Unavailabl e Dejah Peoples DNP Unavailable [phone] Reason for Visit * Reason Onset Date Comments REFERRAL 07/26/2016 colonoscopy Encounter Details Date Type Department Care Team Description 07/26/2016 Telephone Gastroenterology - [address] [id number] Sandeep Daily MD REFERRAL (colonoscopy) Social History [...] book colonoscopy, can see anyone. Pt is citizen of [place] speaking. * Telephone Encounter - Sandeep Daily MD - 07/26/2016 1:52 PM EST The patient underwent screening colonoscopy by Dr. Shahzad Fregoso on 12 December 2006 at the [facility]. Low technical difficulty procedure under moderate sedation that was negative. He recommended colonoscopy again for her in 10 years. She can be scheduled for screening colonoscopy routinely here in our office endoscopy unit. * Telephone Encounter - Una Cedeño - 07/26/2016 1:42 PM EST Pt was referred to us for a colonoscopy, pt says she had one done 10 yrs ago at [facility]. Notes were requested, put in in basket. Can you review to see if we need to book at hospital or here, thank you! documented in this encounter Plan of Treatment Not on file documented as of this encounter Visit Diagnoses Not on filedocumented in this encounter Care Teams Professor Of Apologetics Relationship Specialty Start Date End Date Tiffanie Ding MD PCP - General Internal Medicine 06/17/1604/07 Jade Plata MD PCP - General Internal Medicine 04/08/19 04/04/21 Marina Love MD [address] [place] [id number] PCP - General Internal Medicine 04/05/21 10/20/21 [facility], Pcp [address] [place] [address] PCP - General Internal Medicine 10/21/21 08/10/22 [facility], Pcp [address] [place] [id number] PCP - General Internal Medicine 08/11/22 Shanna Álvarez MD Specialist Cardiology 02/10/21 Dejah Peoples DNP [address] [place] [address] Specialist Nurse Practitioner Family 02/28/24 documented as of this encounter
--- OUTSIDE RECORDS SUMMARY | 2024-10-14 10:23 | XMS_ITS | Encounter Summary ---
Author Organization [facility] Address [address] [place] [address] Care Team Providers Care Mobile Engineer Name Role Phone Jade Plata MD Primary Care Provider Unavail able Shanna Álvarez MD Unavailable [phone] Marina Love MD Primary Care Provider [phone] [facility], Pcp Primary Care Provider Unavailabl e [facility], Pcp Primary Care Provider UnavailDejah Jacobs DNP Unavailable [phone] Encounter Details Date Type Department Care Team Description 07/31/2019 Platemaker Report Medical Records [address] [place] [id number] Tommy Stacy Social History Tobacco Use Types [...] on filedocumented in this encounter Care Teams Mobile Engineer Relationship Specialty Start Date End Date Jade Plata MD PCP - General Internal Medicine 04/08/19 04/04/21 Marina Love MD [address] [place] [address] [phone] PCP - General Internal Medicine 04/05/21 10/20/21 [facility] Pcp [address] [place] [address] PCP - General Internal Medicine 10/21/21 08/10/22 [facility], Pcp [address] [place] [address] PCP - General Internal Medicine 08/11/22 Shanna Álvarez MD Specialist Cardiology 02/10/21 Dejah Peoples, DILIP [address] [place] [address] Specialist Nurse Practitioner Family 02/28/24 documented as of this encounter
--- OUTSIDE RECORDS SUMMARY | 2024-10-14 10:23 | XMS_ITS | Encounter Summary ---
Author Organization [employer] [facility] Address [address] [place] [address] Care Team Providers Care Drama Critic Name Role Phone Tiffanie Ding MD Primary Care Provider Un available Jade Plata MD Primary Care Provider Unavail able Shanna Álvarez MD Unavailable [phone] Marina oLve MD Primary Care Provider [phone] [facility], Pcp Primary Care Provider Unavailabl e [facility], Pcp Primary Care Provider Unavailabl e Dejah Peoples DNP Unavailable [phone] Encounter Details Date Type Department Care Team Description 12/19/2016 Telephone Gastroenterology - [address] [phone] Qi Abebe MD Social History Tobacco Use [...] on filedocumented in this encounter Care Teams Drama Critic Relationship Specialty Start Date End Date Tiffanie Ding MD PCP - General Internal Medicine 06/17/1604/07 Jade Plata MD PCP - General Internal Medicine 04/08/19 04/04/21 Marina Love MD [address] [place] [id number] PCP - General Internal Medicine 04/05/21 10/20/21 [facility], Pcp [address] [place] [phone] PCP - General Internal Medicine 10/21/21 08/10/22 [facility], Pcp [address] [place] [address] PCP - General Internal Medicine 08/11/22 Shanna Álvarez MD Specialist Cardiology 02/10/21 Dejah Peoples, DILIP [address] [place] [address] Specialist Nurse Practitioner Family 02/28/24 documented as of this encounter
== END 2024-10-14 10:48 | disposition home or self-care (01) ==
LOC: HO.HMCFM 09:21
PROVIDERS: PCP Nurse Practitioner Family; Visit Provider Nurse Practitioner Family
DX: I10 Essential (primary) hypertension (principal); L03.213 Periorbital cellulitis; K11.8 Other diseases of salivary glands

== ENCOUNTER → 2024-10-14 09:20 | Outpatient (BNVA) | payer OTHER, SELFPAY | PROVIDERS: PCP Nurse Practitioner Family; Visit Provider Nurse Practitioner Family | DX: I10 Essential (primary) hypertension (principal); L03.213 Periorbital cellulitis; K11.8 Other diseases of salivary glands; Z79.899 Other long term (current) drug therapy | CPT/HCPCS: 99212 ==

== ENCOUNTER 2024-10-15 10:21 | Outpatient (AMB) | payer OTHER, SELFPAY ==
[2024-10-15 10:37] VITALS: BP 174/74; PULSE 58; O2SAT 96; BMI 25.1
--- NOTE | 2024-10-15 10:37 | MHC.OFFVIS ---
Vital Signs 10/15/24 10:37 Height 5 ft 8 in Weight 165 lb BMI 25.1 BP 174/74 H Blood Pressure Location Rt brachial Position Sitting Pulse 58 Pulse Source Pulse Oximeter Pulse Oximetry (%) 96 Oxygen Delivery Method Room Air Intake Visit Reasons: s/p EGD. Intake Note: ESTABLISHED PATIENT for s/p egd. Chief Complaint; Pt denies any GI sx or concerns at this time and reports her medications still work well for her. Sales Agent Food Vending Service Required: Yes Sales Agent Food Vending Service Services: Sales Agent Food Vending Service Present Sales Agent Food Vending Service Name: Sade Corrales Information Interpreted: clinical only Accompanied by: Spouse Allergies atorvastatin [Lipitor] Allergy (Unknown, Verified 10/14/24 09:41) unknown cephalexin [Keflex] Allergy (Unknown, Verified 10/14/24 09:41) unknown codeine Allergy (Unknown, Verified 10/14/24 09:41) unknown morphine Allergy (Unknown, Verified 10/14/24 09:41) unknown oxycodone [Percocet] Allergy (Unknown, Verified 10/14/24 09:41) unknown Penicillins Allergy (Unknown, Verified 10/14/24 09:41) Unknown HPI HPI s/p EGD.: Details: LAST VISIT: Colon cancer screening GERD (gastroesophageal reflux disease) Plan Patient will start taking pantoprazole in the morning and will stop omeprazole. Avoid dietary triggers and late night snacking. Staying upright for minimum 3 hours after meals discussed with patient. Patient will go for upper endoscopy to rule out gastritis, esophagitis, gastric or peptic ulcer, H pylori, Palacios's. Message sent to surgical schedulers to add this procedure to the procedure booked for the 08 of August. Message sent to Cardiology for clearance before procedure. I will see her in 3 months to re-evaluate and to discuss going for colonoscopy as well as going over the prep. She is agreeable to this plan and verbalizes understanding of instructions. She was given the opportunity to ask questions and all questions answered. ? Thank you for allowing me to participate in her care Medications New pantoprazole take one tablet half an hour before breakfast 40 mg PO DAILY 30 tabs 2RF K21.9 Discontinued omeprazole Discontinued Reason: Doctor's Order 20 mg PO DAILY 90 days 90 caps 1RF UPPER ENDOSCOPY AND COLONOSCOPY EGD Findings:? Esophagus:? Normal esophageal mucosa was noted. The Z-line was at 35 cm displaced by a hiatal hernia with the diaphragmatic pinch at 38 cm. Cold forceps biopsies were taken from lower esophagus for histology. Stomach:?Mild erythema noted in the antrum. Numerous sessile and semi pedunculated polyps of size 3-8 mm were noted in the body of the stomach. Cold snare polypectomy was performed for the larger ones for histology. Retroflexion was performed in the cardia. Random cold forceps biopsies were taken from the stomach. Duodenum:? Normal duodenal mucosa. Cold forceps biopsies were taken from the duodenal bulb and 2nd portion of the duodenum to rule out celiac sprue. Colonoscopy Procedure:? The patient was then turned for the colonoscopy. A digital rectal exam was performed which was normal.? A distal attachment cap was affixed to the tip of the scope and the colonoscope was then inserted through the anus and advanced through the colon and advanced to the cecum at 85 cm.? Appendiceal orifice and ileocecal valve were identified. Mucosa was carefully examined under high definition white light as the instrument was slowly withdrawn in a retrograde panoramic fashion. Retroflexion was performed in rectum. The procedure was not difficult. The quality of the prep was BBPS: 2+2+2 = adequate Withdrawal time 13 minutes Limitations: No limitations Findings: Mucosa: Normal colon and terminal ileum mucosa. Protruding lesions: 1 sessile polyp of size 4 mm in the sigmoid colon. Snare polypectomy was performed. The polyp was completely removed and retrieved. Small internal hemorrhoids without stigmata of recent bleeding. Excavated lesions: Mild to moderate diverticulosis of left side of the colon. Impression: 1. Normal esophagus (biopsy) 2. Hiatal hernia 3. Gastritis (biopsy) 4. Gastric polyps 5. Normal duodenum (biopsy) 6. Normal colon mucosa 7. 1 polyp removed 8. Diverticulosis 9. Internal hemorrhoids Recommendations:?? Follow-up path results Avoid NSAIDs Continue Omeprazole H Pylori treatment if biopsies + Repeat endoscopy in 1-2 years if polyps are hyperplastic for complete removal of polyps Repeat colonoscopy for CRC screening in 7-10 years. PATHOLOGY RESULTS Diagnosis A. Duodenum, biopsy: Duodenal mucosa within normal limits. B. Stomach, biopsy: Oxyntic mucosa with mild chronic inactive inflammation; no Helicobacter organisms seen. C. Stomach, polyps: Fundic gland polyps with background moderate chronic active inflammation; no Helicobacter organisms seen. D. Esophagus, lower, biopsy: Squamous epithelium within normal limits; no inflammation seen. E. Colon, sigmoid, polypectomy: Hyperplastic mucosal polyp. TODAY'S VISIT: Patient is here today for follow-up and to discuss upper endoscopy and colonoscopy results. Patient is accompanied by her . Patient denies any ill effects from the prep, anesthesia or procedure itself. Fundic gland polyps found in her stomach without dysplasia. No inflammation in esophagus, no H pylori. Sigmoid polypectomy show hyperplastic mucosal polyp. Patient denies any GI concerning symptoms today. She reports that she is moving her bowels well without any issues. Denies melena, hematochezia. Denies dyspepsia, dysphagia or odynophagia. Patient reports that she pantoprazole has been working for her. Patient no longer is experiencing postprandial epigastric pain or reflux. 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 Family/Other Diabetes Mother Mental health disorder Social History Household Members: Spouse Housing: Apartment Are you a primary campground caretaker to a significant other at home: No Do you presently have visiting nurse or other home services: No Alcohol intake: current Alcohol intake frequency: does not drink Patient Tobacco Use Status: Never used Tobacco e-Cigarette/Vaping Use: Never Used Second Hand Smoke Exposure: No service: No Current occupational status: disabled Cognitive needs: No Hearing needs: No Vision needs: No Review of Systems Const Denies weight gain and Denies weight loss ENT Reports no additional complaints, Denies dysphagia and Denies odynophagia Card Reports no additional complaints Resp Reports no additional complaints GI Denies abdominal pain, Denies belching, Denies melena, Denies bloating, Denies change in bowel habits, Denies dysphagia, Denies excessive flatus, Denies dyspepsia, Denies heartburn, Denies diarrhea, Denies loose stools, Denies nausea, Denies odynophagia and Denies vomiting Musc Reports no additional complaints Neuro Reports no additional complaints Psych Reports no additional complaints Endo Reports no additional complaints Physical Exam Vital Signs: Last Vital Signs Pulse 58 10/15/24 10:37 BP 174/74 H 10/15/24 10:37 Pulse Ox 96 10/15/24 10:37 Oxygen Delivery Method Room Air 10/15/24 10:37 BMI result Body Mass Index 25.1 Const General: healthy appearing, no acute distress and well developed Nutritional Appearance: well nourished Orientation/consciousness: patient oriented x3 Resp Effort & Inspection: normal respiratory effort, able to speak in complete sentences, no tracheal deviation and symmetric chest movement Auscultation: clear to auscultation bilaterally Cardio Rate: regular rate GI Inspection: Yes normal to inspection and No distended Palpation (GI): Soft to palpation, not firm, nontender and No hepatosplenomegaly present Auscultation: normal bowel sounds General: Yes no CVA tenderness Back/Spine/Pelvis Back: no CVA tenderness Skin General skin exam: elasticity normal, turgor normal and dry skin Neuro General: patient oriented x3 Psych Appearance: grossly normal Mental Status: mental status grossly normal Assessment & Plan Assessment & Plan (1) GERD (gastroesophageal reflux disease): Code(s): K21.9 - Gastro-esophageal reflux disease without esophagitis Category: Medical Qualifiers: Esophagitis presence: esophagitis presence not specified Qualified Code(s): K21.9 - Gastro-esophageal reflux disease without esophagitis (2) Status post colonoscopy: Code(s): Z98.890 - Other specified postprocedural states Plan Continue pantoprazole daily. Patient was encouraged to avoid dietary triggers late last night he. Staying upright for minimum 3 hours after meals discussed with patient. Fundic gland gastric polyp without dysplasia with mild inflammation, no H pylori. Patient will need to be he endoscopy it was a 2 years for complete removal of the polyp. Patient will repeat colonoscopy in 10 years as sigmoid polyp was hyperplastic, sooner if clinically necessary. Patient will return in 6 months to follow-up on GERD. She is agreeable to current plan of care and verbalizes understanding of instructions. She was given the opportunity to ask questions and all questions answered. Thank you for allowing me to participate in her care Coding Level of Care Code Est Pt Level 3 (84734) Diagnoses Gastroesophageal reflux disease, unspecified whether esophagitis present K21.9 Esophagitis presence: esophagitis presence not specified Status post colonoscopy Z98.890 Time Spent (min) 25 Comment 15 minutes spent with patient and additional 10 minutes spent reviewing her records
--- OUTSIDE RECORDS SUMMARY | 2024-10-15 11:54 | XMS_ITS | Clinical Summary ---
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) 03/09/2016 Overview (06/05/2024): NON STEMI 06/28/14 Echo normal / stress test 08/18/14 Follows with [facility] Type 2 diabetes mellitus wit h cataract ([facility] V24, [facility] V28) 03/09/2016 Overview (06/05/2024): Dx'd in 1996; Endo @ [facility] Venous insufficiency of both lower extremities 0 03/09/2016 Vitamin D deficiency 03/09/2016 Depression 12/01/2015 Essential hypertension 12/01/2015 Gastroesophageal reflux disease without esophagi tis 12/01/2015 Encounters Date Type Department Care Team Description 09/27/2024 2:00 PM EDT - 09/27/2024 11:59 PM EDT [facility] [address] [phone] Infiltrating ductal carcinoma of bilateral female breasts ([facility] V24, [facility] V28) Discharge Disposition: Home or Self Care 09/27/2024 12:36 PM EDT - 09/27/2024 11:59 PM EDT Hospital Encounter [facility] Ultrasound [address] [place] [phone] Infiltrating ductal carcinoma of bilateral female breasts ([facility] V24, [facility] V28); Mass of breast Discharge Disposition: Home or Self Care 09/23/2024 Telephone General Surgery - [place] [address] [phone] Jalen Ferguson MD Prior Authorization (10/01/24 Dr. Jalen Ferguson) 09/19/2024 Telephone General Surgery - [place] 175 [facility] [address] [place] [phone] Ascencion Aranda [place] 09/18/2024 8:30 AM EDT Consult Breast [facility] [address] [facility] [address] [place] [address] Jalen Ferguson MD Personal history of malignant neoplasm of breast (Primary Dx); Infiltrating ductal carcinoma of breast, right (CMS/HCC V24, CMS/HCC V28); Infiltrating lobular carcinoma of breast, stage 1, left (CMS/HCC V24, CMS/HCC V28) 09/05/2024 8:26 AM EDT - 09/05/2024 11:59 PM EDT [facility]counter [facility] at [address] [phone] Breast asymmetry Discharge Disposition: Home or Self Care 09/05/2024 7:12 AM EDT - 09/05/2024 11:59 PM EDT Hospital [facility]counter [facility] at [address] [phone] Breast asymmetry Discharge Disposition: Home or Self Care 08/26/2024 8:30 AM EDT - 08/26/2024 11:59 PM EDT [facility]counter [facility] [address] [address] Category 3 mammography result with short follow-up interval suggested for probably benign finding Discharge Disposition: Home or Self Care 08/26/2024 7:24 AM EDT - 08/26/2024 11:59 PM EDT Hospital Encounter [facility] Ultrasound [address] [place] [phone] Breast mass Discharge Disposition: Home or Self Care 08/02/2024 Telephone [facility] - [facility] [address] [facility] [address] [place] [phone] Dejah Peoples NP No Show 07/25/2024 1:17 PM EST - 07/25/2024 11:59 PM EST Hospital Encounter [facility] Ultrasound [address] [place] [address] Category 3 mammography result with short follow-up interval suggested for probably benign finding Discharge Disposition: Home or Self Care 07/25/2024 12:53 PM EST - 07/25/2024 11:59 PM EST Hospital [facility]counter [facility] [address] [place] [phone] Category 3 mammography result with short follow-up [...] older (Afluria) 3 years and older 03/18/2016 RENAY/[facility] SARS-CoV-2 COVID -19, vector-nr, rS-Ad26, preservative free 09/22/2020 [facility] SARS-CoV-2 COVID-19, mRNA, LNP-S, preservative free 07/06/2021 [...] phlebectomy COLONOSCOPY 12/12/2006 PROCEDURE: HISTORICAL COLONOSCOPY; COMMENT: [email or web address]; normal screening exam, not difficult. COLONOSCOPY W/ POLYPECTOMY 12/12/2016 PROCEDURE: LA COLSC FLX W/RMVL OF TUMOR POLYP LESION [...] a Exertional asthma 12/01/2015 DX:Exertional asthma Old OR (myocardial infarction) 03/09/2016 D X:Old OR (myocardial infarction); COMMENT: NON STEMI 06/28/14 / [...] Info) Description 10/28/2024 1:45 PM EDT Appointment [facility] Nuclear Medicine [address] [place] [phone] 10/29/2024 7:30 AM EDT Hospital Encounter [facility] OR [address] [place] [phone] Jalen Ferguson MD [address] [address] 10/29/2024 7:30 AM EDT - 10/29/2024 11:00 AM EDT Surgery [facility] OR [address] [place] [phone] Jalen Ferguson MD [address] [address] LUMPECTOMY after magnetic seed localization; [place] Lymph Node Biopsy - Bilateral [28598 (CPT??) +1 more] 10/29/2024 12:00 PM EDT [facility]ointment [facility] [address] [place] [address] 11/18/2024 8:00 AM EDT Office Visit General Surgery - [place] 175 [facility] [address] [place] [phone] Jalen Ferguson MD 175 [facility] [address] [place] [address] Scheduled Procedures Name Priority Associated Diagnoses Date/Ti [...] this topic Medical Devices Implanted Type Area Associate Dentist Device Identifier Shelf Expiration Date Model / Serial / Lot Marker Brst Biopsy Site Hydromark - [id number] Implanted:Qty: 1 on 09/05/2024 by Marina May MD at [facility] Breast Implants Right: Breast DEVICOR [employer] [id number] 12/31/2026 4010-05- 10-T1 / / [id number] 2D Marker Hydromark 15g Butterfly T4 Ti - [id number] - [id number] Implanted:Qty: 1 on 08/26/2024 by Moses Basurto MD at [facility] Imaging Implants Left: Breast DEVICOR MED PROD MAMMOTOME [id number] 04/30/2027 4010-02- 15-T4 / [id number] / [id number] 7D Marker 18ga Magseed 7cm - [id number] - [id number] Implanted:Qty: 2 on 09/27/2024 by Moses Basurto MD at [facility] Imaging Implants N/A: Breast [employer] [id number] 12/16/2025 [id number] / [id number] Description:BILATERAL Procedures Procedure Name Priority Date/Time Associated [...] requested PROCEDURE: Informed consent was obtained. A family specialist assisted with the consent process and was [...] Signed Date: 09/27/2024 14:54 ET Workstation ID: [id number] Transcribed By: Self Edit Transcribed Date: 09/27/2024 [...] PROCEDURE: Informed consent was obtained. ?? A family specialist assisted with the consent process on each [...] surgery PROCEDURE: Informed consent was obtained. A family specialist assisted with theconsent process on each side [...] requested PROCEDURE: Informed consent was obtained. A family specialist assisted with theconsent process and was participating [...] Signed Date: 09/27/2024 14:54 ET Workstation ID: [id number] Transcribed By: Self Edit Transcribed Date: 09/27/2024 [...] requested PROCEDURE: Informed consent was obtained. A family specialist assisted with the consent process and was [...] Signed Date: 09/27/2024 14:54 ET Workstation ID: [id number] Transcribed By: Self Edit Transcribed Date: 09/27/2024 [...] PROCEDURE: Informed consent was obtained. ?? A family specialist assisted with the consent process on each [...] Hold for add-ons. 09/18/2024 1:01 PM EDT [facility] Comment:Auto resulted. Blood Venous blood specimen / Unknown Venipuncture / Unknown 09/18/2024 9:40 AM EDT 09/18/2024 11:57 AM EDT us Jalen Ferguson MD LAB BLOOD ORDERABLES Final Resu lt [facility] [address] [place] [address], * (ABNORMAL) MG Mammo Digital Diagnostic Clip [...] Signed Date: 09/16/2024 12:24 ET Workstation ID: [id number] Transcribed By: Self Edit Transcribed Date: 09/16/2024 [...] Signed Date: 09/06/2024 14:37 ET Workstation ID: [id number] Transcribed By: Self Edit Transcribed Date: 09/05/2024 [...] the department in good condition. Cedric Friedman COMPRESSOR MECHANIC IMG BI PROCEDURES Edited Resul t - [...] Signed Date: 09/16/2024 12:24 ET Workstation ID: [id number] Transcribed By: Self Edit Transcribed Date: 09/16/2024 [...] Signed Date: 09/06/2024 14:37 ET Workstation ID: [id number] Transcribed By: Self Edit Transcribed Date: 09/05/2024 [...] the department in good condition. Cedric Friedman COMPRESSOR MECHANIC IMG BI PROCEDURES Edited Resul t - Final * Tissue exam (09/05/2024 8:14 AM EDT) Only the most recent of2 resultswithin the time period is included. Addendum This case was sent t o [facility], [address], [place], [place], (CLIA #[id number]) for HER2 Breast studies. Their diagnosis is [...] (Full report on file) 10:51 AM EDT [facility] Addendum electronically signed by Jesica Zazueta [...] positive=1-10% positive nuclei, Positive >10% positive nuclei LA: Staining evaluation LA: Positive= >1% positive nuclei. HER2: Staining evaluation [...] Vitro Diagnostic: ER clone SP1 Cell Kory, LA clone 16 Leica Analyte specific reagents: HER2 clone EP3 Biocare 5 10:51 AM EDT [facility] Comment Secondary review for new malignancy performed by Dr. Brian with agreement. Jesica Zazueta MD notified Dr. Basruto by Vito 2:13 PM EDT 09/09/24 10:51 AM EDT [facility] Clinical Information Breast asymmetry [N64.89], 6 10g samples Ultrasound shows: Lobulated mass, 8mm upper outer quadrant Probability that the target was sampled: High History of previous breast cancer: Yes, recent left breast invasive lobular History of non-breast cancer: No History of atypical hyperplasia: No History of radiation/chemotherap y: No 10:51 AM T [facility] Gross Description A. Breast, Right, 8mm [...] Approximately 11.5 hours dvb/AL 10:51 AM EDT [facility] Disclaimer NOTE: The immunohistochemical tests and in situ hybridization tests were developed and their performance characteristics were determined by [facility]. They have not been cleared [...] fixed and paraffin embedded. 10:51 AM EDT [facility] Tissue Right breast structure / Unknown 09/05/2024 8:14 AM EDT 09/05/2024 8:49 AM EDT us Marina May MD LAB PATHOLOGY ORDERABLES Edited Result - Final [facility] [address] [place] [address], [place] [phone] * HER-2 CHAPO, FISH (09/05/2024 8:14 AM [...] ? Greatest length of carcinoma: 9 mm [place] score: Grade 2 Glandular/tubular morphology: 3 Nuclear [...] Laine, of the Department staff, assisted with Belarusian translation. ??The patient confirmed understanding and expressed a desire to consult with the breast cancer multidisciplinary team at the Cancer Center at [facility]. ??Our staff will facilitate scheduling a consult. [...] Signed Date: 08/28/2024 16:22 ET Workstation ID: [id number] Transcribed By: Self Edit Transcribed Date: 08/28/2024 [...] Pathology pending for the left breast. Location: [address], [address] -------- FINAL REPORT -------- Dictated By: Moses Basurto Dictated Date: 08/26/2024 10:56 ET Assigned Physician: Moses Basurto Reviewed and Electronically Signed By: Moses Basurto Signed Date: 08/26/2024 11:02 ET Workstation ID: [id number] Transcribed By: Self Edit Transcribed Date: 08/26/2024 [...] including patient identification using 3 identifiers. A family specialist assisted with the consent process and with [...] No new suspicious findings. us Cedric Friedman COMPRESSOR MECHANIC IMG US PROCEDURES Edited Resul t - [...] recommended. Mammo Location: [facility], [address] [place] [address], [address], . -------- FINAL REPORT -------- Dictated By: Marina May Dictated Date: 07/25/2024 14:29 ET Assigned Physician: Marina May Reviewed and Electronically Signed By: Marina May Signed Date: 07/25/2024 14:54 ET Workstation ID: [id number] Transcribed By: Self Edit Transcribed Date: 07/25/2024 [...] recommended. Mammo Location: [facility], [address] [place] [address], [address], . -------- FINAL REPORT -------- Dictated By: Marina May Dictated Date: 07/25/2024 14:29 ET Assigned Physician: Marina May Reviewed and Electronically Signed By: Marina May Signed Date: 07/25/2024 14:54 ET Workstation ID: [id number] Transcribed By: Self Edit Transcribed Date: 07/25/2024 14:34 ET us Cedric Friedman COMPRESSOR MECHANIC IMG BI PROCEDURES Final Result * (ABNORMAL) [...] recommended. Mammo Location: [facility], [address] [place] [address], [address], . -------- FINAL REPORT -------- Dictated By: Marina May Dictated Date: 07/25/2024 14:29 ET Assigned Physician: Marina May Reviewed and Electronically Signed By: Marina May Signed Date: 07/25/2024 14:54 ET Workstation ID: [id number] Transcribed By: Self Edit Transcribed Date: 07/25/2024 [...] recommended. Mammo Location: [facility], [address] [place] [address], [address], . -------- FINAL REPORT -------- Dictated By: Marina May Dictated Date: 07/25/2024 14:29 ET Assigned Physician: Marina May Reviewed and Electronically Signed By: Marina May Signed Date: 07/25/2024 14:54 ET Workstation ID: [id number] Transcribed By: Self Edit Transcribed Date: 07/25/2024 14:34 ET us Cedric Friedman COMPRESSOR MECHANIC IMG US PROCEDURES Final Result * DXA [...] normal bone density by WHO criteria. The [facility] Department of Internal Medicine recommends using National [...] alternative screening schedule based on ashley Kelly., [facility] July 07, 2011 for patients [...] normal bone density by WHO criteria. The [facility] Department of Internal Medicine recommendsusing National Osteoporosis [...] and higher), BMD testingevery 15 years Result [facility] Carito CHAUDHARY IMG DXA PROCEDURES Final Resu lt * Annual BMP Blood Test (09/02/2021) [facility] Annual BMP Blood Test abstracted Result [facility] HEALTH MAINTENANCE Final Result * (ABNORMAL) Hemoglobin A1c (09/02/2021) [facility] Hemoglobin A1C 7.1(A) <=6.5 % Blood Venous blood specimen / Unknown Result [facility] LAB BLOOD ORDERABLES Marianela l Result * Lipid panel (06/21/2021) [facility] LDL/HDL Ratio 2 0 - 4 Triglycerides 66 0 - 150 mg/dL Cholesterol 188 0 - 200 mg/dL HDL 77 >=40 mg/dL LDL Cholesterol 98 0 - 150 mg/dL Blood Venous blood specimen / Unknown Result [facility] Provider LAB BLOOD ORDERABLES Marianela l Result * Urine Albumin Creatinine Ratio (03/31/2021) [facility] Urine Albumin Creatinine Ratio abstracted us Historical Provider HEALTH MAINTENANCE Final Result * Hepatitis C Screening (12/06/2017) Hepatitis C Screening abstracted us Historical Provider HEALTH MAINTENANCE Final Result from Last 3 Months or Most Recently Relevant to Health Maintenance Insurance [facility] MEDICARE Member Subscriber Plan / Payer (Ef fective 2021-Present) Name:Mary Miller Relation to Subscriber:Self Name:Mary Miller Payer ID:[id number] Group ID:[id number] Type:Not on file Address: [place] [address] [address] [place] [phone] Care Teams Apartment Maintenance Worker Relationship Specialty Start Date End Date Cedric Friedman FNP [address] [place] [address] PCP - General Family Medicine 07/25/24
--- OUTSIDE RECORDS SUMMARY | 2024-10-15 11:54 | XMS_ITS | Encounter Summary ---
Author Organization [employer] Address [address] [place] [address] Care Team Providers Care Manufacturing Engineering Technologist Name Role Phone Unavailable Primary Care Provider Unavailabl e Encounter Details Date Type Department Care Team (Latest Contact Info) Description 04/29/[address] [facility] CONVERSIONS Dental, Provider, DDS Social History [...]
--- OUTSIDE RECORDS SUMMARY | 2024-10-15 11:54 | XMS_ITS | Clinical Summary ---
Author Organization [employer] Address [address] [facility] [address] [place] [address] Care Team Providers Care Integrity Specialist Name Role Phone Unavailable Primary Care Provider [...]
--- OUTSIDE RECORDS SUMMARY | 2024-10-15 11:54 | XMS_ITS | Encounter Summary ---
Author Organization [employer] Address [address] [place] [address] Care Team Providers Care Accounts Payable Payroll Coordinator Name Role Phone Unavailable Primary Care Provider Unavailabl e Encounter Details Date Type Department Care Team (Latest Contact Info) Description 06/26/2018 Abstract [facility] CONVERSIONS Dental, Provider, DDS Social History [...]
--- OUTSIDE RECORDS SUMMARY | 2024-10-15 11:54 | XMS_ITS | Data Portability ---
Author Organization [place] [employer] [place], [place] - [facility] Address [address] [place] [phone] Care Team Providers Care Teletypist Name Role Phone HIM CCA OTHER Assessment No assessment recorded. Plan of Treatment Reminders Order Date Submit Date Provider Last Modified By Organization Details Last Modified Time Details Appointments None recorded. Lab hemoglobin + hematocrit, blood [address], [phone] 4 12:08:05 BMP, serum or plasma [address] [phone] 4 12:08:06 Referral None recorded. Procedures None recorded. Surgeries None recorded. Imaging electrocard iogram [address], [address] 4 12:08:04 Medication Orders None recorded. Patient TargetsNo targets recorded. Patient Instructions Encounter Date Encounter Id Patient Instructions Last Modified By Organization Details Last Modified Time 01/03/2024 [id number] orthostatic vitals* akrones Not available 01/03/2024 12:08:02 Reason for Referral None Reported. Results Created Date Observation Date Name Description Value Unit Range Abnormal Flag Note LastModifiedBy Organization Detail LastModifiedTime 01/03/2001/03/2024 BMP, serum or plasm a CRE 0.8 Not Available [facility] [address], [address] 01/03/2024 11:53:39 01/03/20 24 01/03/2024 BMP, serum or plasm a GLU 149 Not Available [facility] [address], [address] 01/03/2024 11:53:39 01/03/20 24 01/03/2024 BMP, serum or plasm a K+ 4.4 Not Available [facility] [address], [address] 01/03/2024 11:53:39 01/03/20 24 01/03/2024 BMP, serum or plasm a Na+ 135 Not Available [facility] [address], [address] 01/03/2024 11:53:39 01/03/20 24 01/03/2024 hemog lobin + hemat ocrit , blood Hemoglobin 15.3 Not Available [address], [address] 01/03/2024 11:53:33 01/03/20 24 01/03/2024 hemog lobin + hemat ocrit , blood Hematocrit 45 Not Available [address], [address] 01/03/2024 11:53:33 01/03/20 24 01/03/2024 ramírez walter am No observ ation record ed. [address], [address] 01/03/2024 12:08:03 Result Notes None recorded. Procedures Surgical History None recorded. Imaging Results Imaging Date Name Status LastModified by Organization Details LastModified Time 01/03/2024 electrocardiogram completed [address], [phone] 01/03/2024 12:08:03 Procedure Notes None recorded. Medical Equipment None Reported. Allergies Allergen ID Allergen Name Allergen Category Reaction Reaction Severity Criticality Documentation Date Start Date Code Code System Note Provider Name and Address Organization Details Recorded Time 66919 acetamino phen / oxycodone medicatio n Not available Not available Not available 07/17/2024 85804 3 RxNorm Not Available [employer] - production 5 09:49:30 8874 Product containin g penicilli n (product) medicatio n Not available Not available Not available 04/16/2024 40898 8001 SNOMED Not Available [employer] - production [...] ONCE DIRECTED BY [facility] active Not Available Not Available No t [...] % 97.2 [degF] 16 /min 172.72 cm 96182.8 64 g 56 /min 150 mm[Hg] 80 mm[Hg] 130 mm[Hg] 78 mm[Hg] Not Available [employer] production 4 11:54:25 Date Recorded Heart rate Body temperature Respiratory rate Oxygen saturation Oxygen saturation in Arterial blood by Pulse oximetry Systolic blood pressure Diastolic blood pressure Provider Name and Address Organization Details Last Updated DateTime 4 70 /min 96.9 [degF] 16 /min 97 % 97 % 148 mm[Hg] 81 mm[Hg] Not Available [employer] 1 4 11:31:00 Social History None recorded. Functional Status None recorded. Mental Status None recorded. Family History Nothing Reported. Medical History No medical history recorded. Gynecological HistoryNo gynecological history recorded. Obstetrics History GPAL:G 0 P 0 0 0 0 Past Encounters Encounter ID Performer Location Encounter Start Date Encounter Closed Date Diagnosis/Indication Diagnosis SNOMED-CT Code Diagnosis ICD10 Code Diagnosis Note [id number] Madelyn Flores MD Main - [facility] [address] [place] [phone] 01/03/2024 11:38:46 01/03/2024 22:15:23 Headache 90554887 R51.9 As noted, we were called to see this patient regarding concerns of dizziness and headache. Evaluation in the field was performed by my thoracic medicine specialist colleague, as noted above, I provided real-time [...] Díaz Member ID Guarantor Name 01/03/2024 1 [facility] - DOS ON OR AFTER 2022 - DUAL ELIGIBLE - FPC OPTIONS AND ONE CARE (MEDICARE REPLACEMENT/ADV ANTAGE - HMO) Mary Miller [id number] Mary Miller Notes Date Note Type Note [...] breath. Denies bleeding or blood in stool. Sourcing Analyst POC Test Results from [facility] - [facility] iSTAT Chem8+ (13:15:45) Na: 135 mEq/L K: 4.4 mEq/L Cl: 97 mEq/L iCa: 1.20 mmol/L TCO2: 31 mmol/L Glu: 149 mg/dL BUN: 14 mg/dL Crea: 0.8 mg/dL Hct: 45 % Hb: 15.3 g/dL A .................. .................. .................. .................. .................. .................. .................. ............... Sourcing Analyst Note From Moy Garcia: Smartcare visit for [...] ............... Disposition: Fulfilled Madelyn Flores MD [address] [facility], [place], [address], [facility] - [facility] 01/03/2024 13:30:49 OBGyn Episode No OBEpisode recorded.
== END 2024-10-15 11:01 | disposition home or self-care (01) ==
LOC: HO.HGI 10:22
PROVIDERS: PCP Nurse Practitioner Family; Visit Provider Nurse Practitioner Family
DX: K21.9 Gastro-esophageal reflux disease without esophagitis (principal); Z98.890 Other specified postprocedural states
CPT/HCPCS: 99213

== ENCOUNTER → 2024-10-15 10:21 | Outpatient (BNVA) | payer OTHER, SELFPAY | PROVIDERS: PCP Nurse Practitioner Family; Visit Provider Nurse Practitioner Family | DX: K21.9 Gastro-esophageal reflux disease without esophagitis (principal); Z98.890 Other specified postprocedural states | CPT/HCPCS: 99212 ==

== ENCOUNTER 2025-03-07 11:25 | Outpatient (AMB) | payer OTHER, SELFPAY ==
--- NOTE | 2025-03-07 12:02 | A.OFFPC_ITS ---
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 Required: No Is last menstrual period known: No Post menopausal: No Patient : No Allergies atorvastatin (Lipitor) Allergy (Unknown, Verified 03/07/25 12:35) unknown cephalexin (Keflex) Allergy (Unknown, Verified 03/07/25 12:35) unknown codeine Allergy (Unknown, Verified 03/07/25 12:35) unknown morphine Allergy (Unknown, Verified 03/07/25 12:35) unknown oxycodone (Percocet) Allergy (Unknown, Verified 03/07/25 12:35) unknown Penicillins Allergy (Unknown, Verified 03/07/25 12:35) Unknown Medication List - Last Reviewed 03/07/25 by Bebe Strickland MA albuterol sulfate 90 mcg/actuation 2 puffs inhalation Q6H PRN amlodipine 10 mg PO DAILY 90 days ascorbic acid (vitamin C) (Vitamin C) 500 mg PO DAILY blood sugar diagnostic (PlanetEye Verio test strips) Three times a day FUTURE REFILLS FROM PCP. blood-glucose meter (Food Sproutuch Verio Flex Start kit) As directed 3 times a day cholecalciferol (vitamin D3) 25 mcg PO DAILY 90 days flash glucose sensor (FreeStyle River 14 Day Sensor kit) every 14 days fluticasone propionate 50 mcg/actuation 1 spray intranasal DAILY hydroxyzine pamoate mg PO insulin glargine (Lantus Solostar U-100 Insulin) 30 units (0.3 mL) subcut QAM lancets (SplitGigsTouch Delica Lancets) Three times a day letrozole 2.5 mg PO DAILY losartan 50 mg PO BID 30 days metformin ER 1,000 mg (2 x 500 mg) PO BID 90 days metoprolol tartrate 25 mg PO BID miscellaneous medical supply Blood pressure monitoring omeprazole 40 mg (2 x 20 mg) PO DAILY pen needle, diabetic (BD Rosina 2nd Gen Pen Needle) Twice a day prednisone 50 mg PO DAILY rivaroxaban (Xarelto) 20 mg PO QPM sitagliptin phosphate (Januvia) 50 mg PO DAILY 90 days Tobacco use date assessed: 10/14/24 Fall risk assessment: No Falls in past year Last assessed Fall Risk: 03/07/25 Dental Screening Dental Screen Date: 03/07/25 Did you have a dental visit in the last 12 months?: No Did you have a dental problem in the last 6 months where you did not have access to dental care?: No Was dental information given to patient?: Yes HPI HPI Comments History of Present Illness Details 70-year-old Telugu-speaking female, acc ompanied by her , presents for hypertension and diabetes follow-up. She admits to taking her medications as prescribed without adverse reactions. She notes that she was diagnosed with cancer of both breast when she had mammogram at [facility]. Malignant tumors in both breast were surgically excised in 12/2024. She completed radiation therapy in 02/05/2025. She is followed by [facility] oncology and has a follow up next week. She reports persistent generalized itching 3 days after she started Letrozole 2.5mg daily. She contacted her oncologist who recommended stopping the medication. She immediately stopped the medication but itching has not subsided. She is not taking any medication for itching. [facility], LAT[facility] Medical History B12 deficiency Overweight (BMI 25.0-29.9) care home (current) use of insulin HTN (hypertension) Depression GERD (gastroesophageal reflux disease) Diabetes mellitus Vitamin D deficiency Surgical History Hx of colonoscopy Hx of cholecystectomy Hx of hysterectomy Family History Father Lung cancer Mother No problems noted. Family/Other Diabetes Mother Mental health disorder Social History Household Members: Spouse Housing: Apartment Are you a primary client care representative to a significant other at home: No Do you presently have visiting nurse or other home services: No Alcohol intake: current Alcohol intake frequency: does not drink Patient Tobacco Use Status: Never used Tobacco e-Cigarette/Vaping Use: Never Used Second Hand Smoke Exposure: No service: No Current occupational status: disabled Cognitive needs: No Hearing needs: No Vision needs: No Questionnaire Thrive Questionnaire Date Thrive assessed: 07/24/24 I am a: Patient What is your living situation today?: I have a steady place to live Within the past 12 months, did the food you bought not last and you didn't have the money to get more?: Sometimes True Within the past 12 months, did you worry whether your food would run out before you got money to buy more?: Sometimes True Do you have trouble paying for medicines?: No Do you have trouble getting transportation to medical appointments?: No Do you have trouble paying your heating and electricity bill?: No Do you have trouble taking care of your child, family member or friend?: No Do you have trouble with day-to-day activities such as bathing, preparing meals, shopping, managing finances, etc.?: Yes Are you currently unemployed and looking for a job?: No Are you interested in more education?: I choose not to answer this question Currently or been in a relationship where the following occur: I choose not to answer THRIVE Score: 2 JULIAN-7 AMB Questionnaire JULIAN-7 Date JULIAN - 7 assessed: 04/10/24 Source: Developed by Drs. Rob Johnson, Karla Washington, Colin Garcia and colleagues, with an educational lele from [employer]. Review of Systems Const Details: Const Denies chills, Denies fatigue, Denies fever(s), Denies headache(s) and Denies weakness ENT Denies dizziness and Denies headache(s) Card Denies chest pain, Denies lightheadedness, Denies dyspnea and Denies other (Palpitations) Resp Denies cough, Denies dyspnea, Denies wheezing and Denies other ( shortness of breath) GI Denies abdominal pain, Denies melena, Denies hematochezia, Denies change in bowel habits, Denies dyspepsia and Denies nausea Denies hematuria and Denies dysuria Musc Denies abnormal gait, Denies myalgias, Denies arthralgias, Denies numbness and Denies tingling Skin/Breast Reports itching, reports rash, Denies unusual bruising and Denies wounds Neuro Denies abnormal gait, Denies dizziness, Denies headache(s), Denies memory loss, Denies numbness, Denies Sensory deficit (Neuro), Denies tingling and Denies weakness Psych Denies anxiety, Denies depression, Denies memory loss Endo Denies cold intolerance, Denies fatigue, Denies heat intolerance, Denies polydipsia and Denies polyuria Aller/Immun Denies wheezing Physical exam (Primary Care) Vital Signs: Last Vital Signs Temp 97.9 F 03/07/25 12:18 Pulse 64 03/07/25 12:44 Resp 16 03/07/25 12:18 BP 134/70 03/07/25 12:44 Pulse Ox 98 03/07/25 12:18 Oxygen Delivery Method Room Air 03/07/25 12:18 BMI result Body Mass Index 24.9 Tobacco/Smoking Status: Tobacco use Status Tobacco use date assessed 10/14/24 03/07/25 12:04 Patient Tobacco Use Status Never used Tobacco 03/07/25 12:04 e-Cigarette/Vaping Use Never Used 03/07/25 12:04 Thrive Assessment: Date of Thrive Assessment Date Thrive assessed 07/24/24 03/07/25 12:04 Currently or been in a relationship where the following occur: I choose not to answer Const Other: General: no acute distress and well developed Nutritional Appearance: well nourished Orientation/consciousness: patient oriented x3 HENMT Head: Yes normocephalic and Yes atraumatic Eyes General: appearance normal, both eyes and all related structures Pupils: Equal, round and reactive pupils present EOM: EOMs intact bilaterally Resp Effort & Inspection: normal respiratory effort Auscultation: clear to auscultation bilaterally Cardio Rate: regular rate Rhythm: regular rhythm Heart sounds: S1 normal heart sound present, S2 normal heart sound present, no gallops, no murmurs and no rubs GI Palpation (GI): No Abdominal aortic bruit present, Soft to palpation, nontender, No hepatosplenomegaly present and No Rebound tenderness present Auscultation: normal bowel sounds General: Yes no CVA tenderness Back/Spine/Pelvis Back: no CVA tenderness Cervical Spine: cervical ROM normal and No Cervical spine tenderness Thoracic/Lumbar Spine: thoraco-lumbar ROM normal, No pain with thoraco-lumbar ROM, No thoracic spinal tenderness and No lumbar spinal tenderness Extrem General: Yes normal to inspection, No edema and No calf tenderness Skin General: warm and dry. Normal skin color. Normal skin turgor Lesions: no lesions Rashes: Mild erythema noted to areas of skin scratched by patient, skin is non- raised Trauma: no lacerations or abrasions Wounds: no wounds Nails: normal Neuro General: patient oriented x3, gait normal and no focal neuro deficit Cranial nerves: Yes Equal, round and reactive pupils present Cognition (Neuro): normal cognition Gait exam (Neuro): Normal gait present Sensory Exam: No Sensory deficit (Neuro) Psych Appearance: grossly normal Affect: normal affect Attitude: cooperative Thought process: Normal thought process present Results AMB Hemoglobin A1c AMB Hemoglobin A1c 6.9 % Last Edit by Bebe Strickland MA on 03/07/25 13:12 Results Reviewed Results Reviewed: Laboratory Last Values Hgb A1c (Clinic) 6.9 % (4.0-6.0) H 03/07/25 13:09 Coding Level of Care Code Est Pt Level 3 (72165) Diagnoses Essential hypertension I10 Hypertension type: essential hypertension Type 2 diabetes mellitus with hyperglycemia, with long-term current use of insulin E11.65; Z79.4 Diabetes mellitus complication status: with hyperglycemia Diabetes mellitus mcfp insulin use: with keno terminal operator use Diabetes mellitus type: type 2 Severe itching L29.9 Assessment & Plan Assessment & Plan (1) HTN (hypertension): Code(s): I10 - Essential (primary) hypertension Category: Medical Qualifiers: Hypertension type: essential hypertension Qualified Code(s): I10 - Essential (primary) hypertension Plan: Resting blood pressure is 134/70, slightly above goal of less than 130/80. Continue current treatment regimen. Low-sodium diet encouraged. Will continue to monitor. Verbalized understanding and agreed with the plan. (2) Diabetes mellitus: Code(s): E11.9 - Type 2 diabetes mellitus without complications Category: Medical Qualifiers: Diabetes mellitus complication status: with hyperglycemia Diabetes mellitus keno terminal operator insulin use: with mcfp use Diabetes mellitus type: type 2 Qualified Code(s): E11.65 - Type 2 diabetes mellitus with hyperglycemia; Z79.4 - care home (current) use of insulin Plan: A1c today 6.9%, within goal of less than 7.0%. Previous A1c was 6.7%. Continue current treatment regimen. ADA diet and routine exercise encouraged. Will recheck A1c in 3 months. Verbalized understanding and agreed with plan. (3) Severe itching: Code(s): L29.9 - Pruritus, unspecified Category: Medical Plan: Reports persistent generalized itching 3 days after she started Letrozole 2.5mg daily. She contacted her oncologist who recommended stopping the medication. She immediately stopped the medication but itching has not subsided. She is not taking any medication for itching. Intense, generalized itching observed throughout the visit. Mild erythema noted to areas of skin scratched by patient, skin is nonraised. Her symptoms may be attributed to adverse reaction of letrozole which has been stopped by patient's oncologist. Pharmacy verify that the patient was prescribed prednisone 50 mg daily x5 days; last picked up on 03/05/2025. Continue to take prednisone as prescribed. May take Benadryl 25 mg 3 times a day as needed. Follow-up with oncologist as planned. Return with worsening or new symptoms. Verbalized understanding and agreed with the plan. Orders: Orders AMB Hemoglobin A1c Today Z13.9 - Encounter for screening, unspecified
--- OUTSIDE RECORDS SUMMARY | 2025-03-07 12:03 | XMS_ITS | Encounter Summary ---
Author Organization [employer] Address [address] [place] [address] Care Team Providers Care Veterinary X Ray Operator Name Role Phone Unavailable Primary Care Provider Unavailabl e Encounter Details Date Type Department Care Team (Latest Contact Info) Description 04/29/2019 Abstract [facility] CONVERSIONS Dental, Provider, DDS Social History Tobacco [...]
--- OUTSIDE RECORDS SUMMARY | 2025-03-07 12:03 | XMS_ITS | Clinical Summary ---
Author Organization [employer] Address [address] [place] [address] Care Team Providers Care Laundromat Manager Name Role Phone Unavailable Primary Care Provider [...] 04/05/2023, 1 06/29/2018, 05/19/2017, Additional history exists Dental X-Ray: Bitewings 04/06/2024 04/05/20, 06/26/2018, 01/03/2017, Additional history exists Tobacco Screening 08/08/2024 08/08/2023 DTaP/Tdap/Td Vaccines (2 - Td or Tdap) 08/12/2024 08/12/2014 COVID-19 Vaccine (4 - season) 2025 03/21/2023, 07/06/2021, 09/22/2020 Influenza Vaccine (#1) 2025 , 07/19/2024, 03/14/2023, Additional history exists Pneumococcal Vaccine: 50+ Years (3 of 3 - PCV20 or PCV21) 07/08/2026 07/08/2021, 03/18/2015 HIB Vaccines Aged Out No longer eligi [...] Most Recently Relevant to Health Maintenance Insurance * Guarantor: Mary Miller Account Type Relation to Patient Date of Phone Billing Address Personal/Family Self [address]
--- OUTSIDE RECORDS SUMMARY | 2025-03-07 12:03 | XMS_ITS | Encounter Summary ---
Author Organization [employer] Address [address] [place] [address] Care Team Providers Care Mud Grinder Name Role Phone Unavailable Primary Care Provider Unavailabl e Encounter Details Date Type Department Care Team (Latest Contact Info) Description 06/26/2018 Abstract [facility] CONVERSIONS Dental, Provider, DDS Social History Tobacco [...]
--- OUTSIDE RECORDS SUMMARY | 2025-03-07 12:03 | XMS_ITS ---
Author Organization [facility] Address [address] [place] [address] Phone Care Team Providers Care Roof Foreman Name Role Phone Unavailable Primary Care Provider Unavailabl e Active Problems Problem Noted Date Diagnosed Date [...] weeks Allergic rhinitis 12/02/2016 Asthma 03/09/2016 [place] (myocardial infarction) 03/09/2016 Overview (06/05/2024): NON STEMI 06/28/14 Echo normal / stress test 08/18/14 Follows with [place] [facility] Type 2 diabetes mellitus wit h cataract ([facility]/HCC V24, [facility]/HCC V28) 03/09/2016 Overview (06/05/2024): Dx'd in 1996; Endo @ [facility] Venous insufficiency of both lower extremities 0 03/09/2016 Vitamin D deficiency 03/09/2016 Depression 12/01/2015 Essential hypertension 12/01/2015 Gastroesophageal reflux disease without esophagi tis 12/01/2015 Current Oncology Plans No current plan information found. Past Plans No past plan information found. Radiation Treatments * Treatment Site Started On Last Treated On Elapsed Days Fractions Complete Last Fraction Dose Given/Prescribed Total Dose Given/Prescribed Technique Left Breast Boost 5 5 5 4 of 4 250 cGy / 250 cGy 1,000 cGy / 1, 000 cGy KONG,LPO,LA O Right Breast Boost 5 5 5 4 of 4 250 cGy / 250 cGy 1,000 cGy / 1, 000 cGy ICELANDIC/RPO Left Breast 5 5 21 16 of 16 267 cGy / 267 cGy 4,272 cGy / 4, 272 cGy Tangents Right Breast 5 5 21 16 of 16 267 cGy / 267 cGy 4,272 cGy / 4, 272 cGy Tangents
--- OUTSIDE RECORDS SUMMARY | 2025-03-07 12:03 | XMS_ITS ---
[facility] Name [facility] Organization Unknown Care Team Organization Name Specialty Phone Email Start Date End Da te [facility] Jade Pl[facility] 04/26/202202/04
--- OUTSIDE RECORDS SUMMARY | 2025-03-07 12:03 | XMS_ITS | Clinical Summary ---
Author Organization [facility] Address [address] [place] [address] Phone Care Team Providers Care Rn Acls Name Role Phone Unavailable Primary Care Provider Unavailabl e Allergies Active Allergy Reactions Criticality Noted Date Comments Atorvastatin Sore Throat Medium 03/09/2016 Lcoughing Cephalexin Monohydrate Hives High 03/09/2016 itching Codeine 03/09/2016 Reaction not mentioned Kiwi (Actinidia Chinensis) Congestion of the throat High 03/09/2016 K Morphine Nausea And Vomiting Medium 03/09/2016 No allergy Oxycodone Hives High 05/19/2017 Penicillins Rash High 12/01/2015 Medications albuterol HFA (PROAIR HFA ; PROVENTIL HFA ; VENTOLIN HFA) 90 mcg/actuation inhaler 2 puffs every 4 (four) hours if needed. 2 Active ascorbic acid (VITAMIN C) 500 mg chewable tablet 2 Active CYANOCOBALAMIN, VITAMIN B-12, ORAL Place 500 mcg under the tongue 1 (one) time each day. B-12 Microlozenge 500 MCG SL Tab Take 1 tablet by mouth daily. 1 Active cholecalciferol (VITAMIN D-3) 25 mcg (1,000 unit) capsule Take 1 capsule (1,000 Units total) by mouth 1 (one) time each day. 1 Active fluticasone propionate (FLONASE) 50 mcg/actuation nasal spray 1 spray 1 (one) time each day. 2 Active FREESTYLE LANCETS MISC Use to test blood sugar 2 times daily 2 Active blood sugar diagnostic (FreeStyle Lite Strips) test strip Use to test twice daily 2 Active metFORMIN XR (GLUCOPHAGE-XR) 500 mg 24 hr tablet TAKE 2 TABLETS BY MOUTH TWICE A DAY 2 Active metoprolol tartrate (LOPRESSOR) 25 mg tablet Take 1 tablet (25 mg total) by mouth 2 (two) times a day. 2 Active omeprazole (PriLOSEC) [address] capsule Take 1 capsule (20 mg total) by mouth 1 (one) time each day. Do not crush or chew. Active insulin glargine (LANTUS) 100 unit/mL injection Inject 25 Units under the skin 1 (one) time each day in the morning. Active losartan (COZAAR) 100 mg tablet Take 1 tablet (100 mg total) by mouth 1 (one) time each day. Active SITagliptin phosphate (JANUVIA) 50 mg tablet Take 1 tablet (50 mg total) by mouth 1 (one) time each day. Stop 3 days prior to sx Active amLODIPine (NORVASC) 10 mg tablet Take by mouth 1 (one) time each day. Active rivaroxaban (XARELTO) 20 mg tablet Take 1 tablet (20 mg total) by mouth 1 (one) time each day with dinner for 1 dose. Take with food. Re-start med 2 days after to surgery 1 each 5 Active traMADoL (ULTRAM) 50 mg tabletIndicatio ns:Infiltrating ductal carcinoma of breast, right (CMS/HCC V24, CMS/HCC V28),Infiltrati ng lobular carcinoma of breast, stage 1, left (CMS/HCC V24, CMS/HCC V28) Take 1 tablet (50 mg total) by mouth every 8 (eight) hours if needed for severe pain for up to 5 doses. Max Daily Amount: 150 mg 5 tablet 5 Active letrozole (FEMARA) 2.5 mg tablet Take 1 tablet (2.5 mg total) by mouth 1 (one) time each day Take with or without food. 90 tablet 3 5 02/13/20 26 Active Active Problems Problem Noted Date Diagnosed Date Infiltrating ductal carcinom a of breast, right (CMS/HCC V24, CMS/[facility] V28) 09/18/2024 Infiltrating lobular carcino ma of breast, stage 1, left ([facility] V24, [facility] V28) 09/18/2024 Abnormal iron saturation 06/05/2024 Low [...] weeks Allergic rhinitis 12/02/2016 Asthma 03/09/2016 Old HI (myocardial infarction) 03/09/2016 Overview (06/05/2024): NON STEMI 06/28/14 Echo normal / stress test 08/18/14 Follows with [place] [facility] Type 2 diabetes mellitus wit h cataract ([facility] V24, [facility] V28) 03/09/2016 Overview (06/05/2024): Dx'd in 1996; Endo @ [facility] Venous insufficiency of both lower extremities 0 03/09/2016 Vitamin D deficiency 03/09/2016 Depression 12/01/2015 Essential hypertension 12/01/2015 Gastroesophageal reflux disease without esophagi tis 12/01/2015 Encounters Date Type Department Care Team Description 03/03/2025 Telephone [facility] Hematology Oncology [address] [place] [phone] Juanis Ramirez MA 02/24/2025 9:15 AM EDT Office Visit General Surgery - [place] [address] [facility] [address] [place] [phone] Jalen Ferguson MD History of partial mastectomy of both breasts (Primary Dx); Infiltrating lobular carcinoma of breast, stage 1, left ([facility] V24, [facility] V28); Infiltrating ductal carcinoma of breast, right (CMS/HCC V24, CMS/HCC V28) 02/19/2025 9:20 AM EDT - 02/19/2025 11:59 PM EDT Hospital Encounter [facility] Bone Density [address] [place] [phone] Osteoporosis, unspecified osteoporosis type, unspecified pathological fracture presence; Encounter for osteoporosis screening in asymptomatic postmenopausal patient; Osteopenia after menopause Discharge Disposition: Home or Self Care 02/12/2025 11:06 AM EDT - 02/12/2025 11:59 PM EDT Hospital Encounter [facility] Radiation Oncology [address] [place] [phone] Abril Krishnamurthy NP Infiltrating lobular carcinoma of breast, stage 1, left (CMS/HCC V24, CMS/HCC V28) (Primary Dx) Discharge Disposition: Home or Self Care 02/12/2025 10:30 AM EDT Office Visit [facility] Hematology Oncology [address] [place] [phone] Erasto Santana MD Infiltrating ductal carcinoma of breast, right (CMS/HCC V24, CMS/HCC V28) (Primary Dx); Infiltrating lobular carcinoma of breast, stage 1, left (CMS/HCC V24, CMS/HCC V28) 02/05/2025 9:10 AM EDT - 02/05/2025 11:59 PM EDT Hospital Encounter [facility] Radiation Oncology [address] [place] [phone] Abril Krishnamurthy NP Discharge Disposition: Home or Self Care 02/05/2025 8:47 AM EDT - 02/05/2025 11:59 PM EDT Hospital Encounter [facility] Radiation Oncology [address] [place] [phone] Discharge Disposition: Home or Self Care 02/04/2025 8:51 AM EDT - 02/04/2025 11:59 PM EDT Hospital Encounter [facility] Radiation Oncology [address] [place] [phone] Discharge Disposition: Home or Self Care 02/03/2025 8:54 AM EDT - 02/03/2025 11:59 PM EDT Hospital Encounter [facility] Radiation Oncology [address] [place] [phone] Discharge Disposition: Home or Self Care 01/31/2025 10:33 AM EDT - 01/31/2025 11:59 PM EDT Hospital Encounter [facility] Radiation Oncology [address] [place] [phone] Pierre Peoples MD Infiltrating ductal carcinoma of breast, right (CMS/HCC V24, CMS/HCC V28) (Primary Dx) Discharge Disposition: Home or Self Care 01/31/2025 10:30 AM EDT - 01/31/2025 11:59 PM EDT Hospital Encounter [facility] Radiation Oncology [address] [place] [phone] Pierre Peoples MD Discharge Disposition: Home or Self Care 01/31/2025 9:41 AM EDT - 01/31/2025 11:59 PM EDT Hospital Encounter [facility] Radiation Oncology [address] [place] [phone] Discharge Disposition: Home or Self Care 01/30/2025 8:47 AM EDT - 01/30/2025 11:59 PM EDT Hospital Encounter [facility] Radiation Oncology [address] [place] [phone] Discharge Disposition: Home or Self Care 01/29/2025 8:43 AM EDT - 01/29/2025 11:59 PM EDT Hospital Encounter [facility] Radiation Oncology [address] [place] [phone] Discharge Disposition: Home or Self Care 01/29/2025 7:21 AM EDT - 01/29/2025 11:59 PM EDT Hospital Encounter [facility] Radiation Oncology [address] [place] [phone] Discharge Disposition: Home or Self Care 01/28/2025 8:57 AM EDT - 01/28/2025 11:59 PM EDT Hospital Encounter [facility] Radiation Oncology [address] [place] [phone] Discharge Disposition: Home or Self Care 01/27/2025 9:05 AM EDT - 01/27/2025 11:59 PM EDT Hospital Encounter [facility] Radiation Oncology [address] [place] [phone] Pierre Peoples MD Infiltrating ductal carcinoma of breast, right (CMS/HCC V24, CMS/HCC V28) Discharge Disposition: Home or Self Care 01/27/2025 8:45 AM EDT - 01/27/2025 11:59 PM EDT Hospital Encounter [facility] Radiation Oncology [address] [place] [phone] Discharge Disposition: Home or Self Care 01/24/2025 9:02 AM EDT - 01/24/2025 11:59 PM EDT Hospital Encounter [facility] Radiation Oncology [address] [place] [phone] Cynthia Cuba MD Infiltrating ductal carcinoma of breast, right (CMS/HCC V24, CMS/HCC V28) (Primary Dx) Discharge Disposition: Home or Self Care 01/24/2025 8:47 AM EDT - 01/24/2025 11:59 PM EDT Hospital Encounter [facility] Radiation Oncology [address] [place] [phone] Discharge Disposition: Home or Self Care 01/23/2025 8:40 AM EDT - 01/23/2025 11:59 PM EDT Hospital Encounter [facility] Radiation Oncology [address] [place] [phone] Discharge Disposition: Home or Self Care 01/22/2025 8:52 AM EDT - 01/22/2025 11:59 PM EDT Hospital Encounter [facility] Radiation Oncology [address] [place] [phone] Discharge Disposition: Home or Self Care 01/21/2025 8:47 AM EDT - 01/21/2025 11:59 PM EDT Hospital Encounter [facility] Radiation Oncology [address] [place] [phone] Discharge Disposition: Home or Self Care 01/20/2025 8:35 AM EDT - 01/20/2025 11:59 PM EDT Hospital Encounter [facility] Radiation Oncology [address] [place] [phone] Discharge Disposition: Home or Self Care 01/20/2025 [facility] [address] [facility] [address] [phone] Hari Baer MD 01/17/2025 9:01 AM EDT - 01/17/2025 11:59 PM EDT Hospital Encounter [facility] Radiation Oncology [address] [place] [phone] Cynthia Cuba MD Infiltrating ductal carcinoma of breast, right (CMS/HCC V24, CMS/HCC V28) (Primary Dx) Discharge Disposition: Home or Self Care 01/17/2025 8:47 AM EDT - 01/17/2025 11:59 PM EDT Hospital Encounter [facility] Radiation Oncology [address] [place] [phone] Discharge Disposition: Home or Self Care 01/16/2025 8:37 AM EDT - 01/16/2025 11:59 PM EDT Hospital Encounter [facility] Radiation Oncology [address] [place] [phone] Discharge Disposition: Home or Self Care 01/15/2025 8:48 AM EDT - 01/15/2025 11:59 PM EDT Hospital Encounter [facility] Radiation Oncology [address] [place] [phone] Discharge Disposition: Home or Self Care 01/14/2025 8:44 AM EDT - 01/14/2025 11:59 PM EDT Hospital Encounter [facility] Radiation Oncology [address] [place] [phone] Discharge Disposition: Home or Self Care 01/13/2025 8:39 AM EDT - 01/13/2025 11:59 PM EDT Hospital Encounter [facility] Radiation Oncology [address] [place] [phone] Discharge Disposition: Home or Self Care 01/10/2025 9:01 AM EDT - 01/10/2025 11:59 PM EDT Hospital Encounter [facility] Radiation Oncology [address] [place] [phone] Cynthia Cuba MD Infiltrating ductal carcinoma of breast, right (CMS/HCC V24, CMS/HCC V28) (Primary Dx) Discharge Disposition: Home or Self Care 01/10/2025 8:42 AM EDT - 01/10/2025 11:59 PM EDT Hospital Encounter [facility] Radiation Oncology [address] [place] [phone] Discharge Disposition: Home or Self Care 01/09/2025 11:29 AM EDT - 01/09/2025 11:59 PM EDT Hospital Encounter [facility] Radiation Oncology [address] [place] [phone] Cynthia Cuba MD Discharge Disposition: Home or Self Care 01/09/2025 10:57 AM EDT - 01/09/2025 11:59 PM EDT Hospital Encounter [facility] Radiation Oncology [address] [place] [phone] Discharge Disposition: Home or Self Care 01/03/2025 10:29 AM EDT - 01/03/2025 11:59 PM EDT Hospital Encounter [facility] Radiation Oncology [address] [place] [phone] Discharge Disposition: Home or Self Care 12/31/2024 10:48 AM EDT - 12/31/2024 11:59 PM EDT Hospital Encounter [facility] Radiation Oncology [address] [place] [phone] Cynthia Cuba MD Infiltrating ductal carcinoma of breast, right (CMS/HCC V24, CMS/HCC V28); Infiltrating lobular carcinoma of breast, stage 1, left (CMS/HCC V24, CMS/HCC V28) Discharge Disposition: Home or Self Care 12/31/2024 10:11 AM EDT - 12/31/2024 11:59 PM EDT Hospital Encounter [facility] Radiation Oncology [address] [place] [phone] Infiltrating ductal carcinoma of breast, right (CMS/HCC V24, CMS/HCC V28) (Primary Dx); Infiltrating lobular carcinoma of breast, stage 1, left ([facility]/HCC V24, CMS/HCC V28) Discharge Disposition: Home or Self Care 12/18/2024 10:30 AM EDT Office Visit [facility] Hematology Oncology [address] [place] [phone] Erasto Santana MD Infiltrating ductal carcinoma of breast, right ([facility]/HCC V24, [facility]/HCC V28) (Primary Dx) 12/16/2024 2:15 PM EDT - 12/16/2024 11:59 PM EDT Hospital Encounter [facility] Radiation Oncology [address] [place] [phone] Cynthia Cuba MD Infiltrating ductal carcinoma of breast, right ([facility]/HCC V24, [facility]/HCC V28) (Primary Dx); Infiltrating lobular carcinoma of breast, stage 1, left ([facility] V24, [facility] V28) Discharge Disposition: Home or Self Care 12/16/2024 2:15 PM EDT - 12/16/2024 11:59 PM EDT Hospital Encounter [facility] Radiation Oncology [address] [place] [phone] Discharge Disposition: Home or Self Care from [...] older (Afluria) 3 years and older 03/18/2016 [employer] SARS-CoV-2 COVID -19, vector-nr, rS-Ad26, preservative free 09/22/2020 [employer] SARS-CoV-2 COVID-19, mRNA, LNP-S, preservative free 07/06/2021 [...] phlebectomy COLONOSCOPY 12/12/2006 PROCEDURE: HISTORICAL COLONOSCOPY; COMMENT: [email or web address]; normal screening exam, not difficult. COLONOSCOPY W/ POLYPECTOMY 12/12/2016 PROCEDURE: [facility] COLSC FLX W/RMVL OF TUMOR POLYP LESION SNARE TQ; COMMENT: 2cm rectal polyp - tubulovillous adenoma foci hi grade dysplasia FLEXIBLE SIGMOIDOSCOPY 01/2017 PROCEDURE: HISTORICAL FLEXIBLE SIGMOIDOSCOPY; COMMENT: negative COLONOSCOPY 08/15/2018 PROCEDURE: HISTORICAL COLONOSCOPY; COMMENT: negative CHOLECYSTECTOMY Medical History Medical History Date Comments Essential hypertension 12/01/2015 DX:Essent ial hypertension Gastroesophageal reflux dise ase without esophagitis 12/01/2015 DX:Gastroesophageal reflux d isease without esophagitis Depression 12/01/2015 DX:Depression Hyperlipidemia 12/01/2015 DX:Hyperlipidemi a Exertional asthma 12/01/2015 DX:Exertional asthma Old HI (myocardial infarction) 03/09/2016 D X:Old HI (myocardial infarction); COMMENT: NON STEMI 06/28/14 / stress test 08/18/14 Venous insufficiency of both lower extremities 03/09/2016 DX:Venous insufficiency of b oth lower extremities; COMMENT: EVLT 2014/ Dr Mohan Benedict Type 2 diabetes mellitus wit h cataract (CMS/HCC V24, [facility]/HCC V28) 03/09/2016 DX:Type 2 diabetes mellitus with cataract (HCC); COMMENT: OU Varicose veins 03/09/2016 DX:Varicose vein s Atrial fibrillation (CMS/HCC V24, CMS/[facility] V28) 03/09/2016 DX:Atrial fibrillation (HCC) 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 Vitamin D deficiency 03/09/2016 DX:Vitamin D deficiency Asthma 03/09/2016 DX:Asthma Allergic rhinitis 12/02/2016 DX:Allergic rh initis Enlarged parotid gland 10/23/2018 DX:Enlarg ed parotid gland Low ferritin DX:Low ferritin Abnormal iron saturation DX:Abno rmal iron saturation Irregular heart beat A fib Cancer (CMS/HCC V24, CMS/HCC V28) breast Family History Medical History Relation Name Comments [...] Tobacco: Never Tobacco Cessation:Counseling Given: Not Answered Alcohol Use Standard Drinks/Week Comments No 0 (1 standard drink = 0.6 oz pur e alcohol) Interpersonal Safety Answer Date Record ed Physical Abuse 10/29/2024 Verbal Abuse 10/29/2024 Comments No Sex and Gender Information Value Date Recorded Sex Assigned at Female 07/12/2024 9:02 AM EST Legal Sex Female 3:14 PM EST Gender Identity Female 07/12/2024 9:02 AM EST Sexual Orientation Straight 09/04/2024 10 :20 AM EDT Occupation Industry Job Start Date Job End Date Did not work Not on file Not on file Not on file Obstetrics History * This document contains information received from the source organization and may not represent a complete record from that organization. Para Term AB IAB SAB Ectopic Multiple Livin g Live Births 4 3 3 Date Outcome GA Total Labor Labor/2nd/3rd Weight Sex Type Anes PTL Gemma A1 A5 Name Clin Para Para Para Last Filed Vital Signs Vital Sign Reading Time Taken Comments Blood Pressure 137/74 02/24/2025 9:16 AM EDT Pulse 62 02/24/2025 9:16 AM EDT Temperature 36.2 C (97.2 F) 02/12/2025 11:10 AM EDT Respiratory Rate 18 02/12/2025 11:10 AM EDT Oxygen Saturation 99% 02/12/2025 11:10 AM EDT Inhaled Oxygen Concentration - - Weight 75.3 kg (166 lb) 02/24/2025 9:16 AM EDT Height 172.7 cm (5' 8 ) 02/24/2025 9:16 AM EDT Body Mass Index 25.24 02/24/2025 9:16 AM EDT Plan of Treatment Upcoming Encounters Date Type Department Care Team (Late st Contact Info) Description 03/11/2025 2:30 PM EDT Appointment [facility] Radiation Oncology [address] [place] [phone] Pierre Peoples MD [address] [place] [phone] 03/18/2025 11:15 AM EDT Office Visit [facility] Hematology Oncology [address] [place] [phone] Erasto Santana MD [address] [place] [phone] 04/10/2025 10:45 AM EDT Office Visit [facility] Hematology Oncology [address] [place] [phone] Erasto Santana MD [address] [place] [phone] 08/25/2025 10:00 AM EDT Office Visit General Surgery - [place] [address] [facility] [address] [place] [phone] Jalen Ferguson MD [address] [place] [phone] Health Maintenance Due Date Last Done Comments Diabetes: Annual Foot Exam 01/18/1966 Diabetes: Annual Retina Eye Exam 01/18/1966 Zoster Vaccines (1 of 2) 01/18/1975 RSV Immunization Adult Patients (1 - Risk 60-74 years 1-dose series) 2016 Pneumococcal Vaccine: 50+ Years (3 of 3 - PPSV23, PCV20 or PCV21) 09/02/2021 07/08/2021, 03/18/2015 Colorectal Cancer Screening: Stool Based Tests (FOBT/FIT) 05/28/2022 Medicare Annual Wellness Visit 05/28/2022 Social Influencers of Health Screening 05/28/2022 Diabetes: Annual Urine Albumin-Creatinine Ratio (uACR) 06/04/2022 03/31/2021 Diabetes: Blood Sugar Control Test (HGBA1C) 06/04/2022 09/02/2021 Diabetes: Annual GFR (Glomerular Filtration Rate) 09/02/2022 09/02/2021 Hypertension/CHF/CAD Annual BMP Blood Test 09/02/2022 09/02/2021 Depression Screening 06/19/2024 DTaP,Tdap,and Td Vaccines (2 - Td or Tdap) 08/12/2024 08/12/2014 COVID-19 Vaccine (4 - 2024- season) 2025 03/21/2023, 07/06/2021, 09/22/2020 Influenza Vaccine (#1) 2025 , 03/14/2023, 05/02/2022, Additional history exists Falls Risk Assessment 10/29/2025 10/29/2024 Cholesterol Screening (Lipid Panel) 06/21/2026 06/21/2021 Osteoporosis Screening (Bone Density Screening) 02/19/2035 02/19/2025, 10/08/2021 Hepatitis C Screening Completed 12/06/2017 Breast Cancer Screening Discontinued 09/06/19, 08/26/2024, 07/25/2024, Additional history exists HIB Vaccines Aged Out [...] this topic Medical Devices Implanted Type Area Eddy Current Inspector Device Identifier Shelf Expiration Date Model / Serial / Lot Marker Brst Biopsy Site Hydromark - [id number] Implanted:Qty: 1 on 09/05/2024 by Marina May MD at [facility] Breast Implants Right: Breast [employer] [id number] 12/31/2026 4010-05-1 0-T1 / / [id number] D Hemostat Flour Collgn 1gm Avitene - Sna - [id number] Implanted:Qty: 1 on 10/29/2024 by Jalen Ferguson MD at [facility] Hemostasis Left: Breast CR BARD [employer] [id number] 06/15/2027 [id number] / NA / [id number] Hemostat Flour Collgn 1gm Avitene - Sna - [id number] Implanted:Qty: 1 on 10/29/2024 by Jalen Ferguson MD at [facility] Hemostasis Right: Breast [employer] [id number] 06/15/2027 [id number] / NA / [id number] Marker Hydromark 15g Butterfly T4 Ti - [id number] - [id number] Implanted:Qty: 1 on 08/26/2024 by Moses Basurto MD at [facility] Imaging Implants Left: Breast [employer] MAMMOTOME [id number] 04/30/2027 4010-02-1 5-T4 / [id number] / [id number] D Marker 18ga Magseed 7cm - [id number] - [id number] Implanted:Qty: 2 on 09/27/2024 by Moses Basurto MD at [facility] Imaging Implants N/A: Breast [employer] [id number] 12/16/2025 [id number] / [id number] / [id number] Description:BILATERAL Procedures Procedure Name Priority Date/Time Associated Diagnosis Comments BD BONE DENSITY DXA AXIAL SKELETON Routine 02/19/2025 9:46 AM EDT Osteoporosis, unspecified osteoporosis type, unspecified pathological fracture presence Encounter for osteoporosis screening in asymptomatic postmenopausal patient Osteopenia after menopause RAD ONC MSQ TREATMENT SUMMARY Routine 02/05/2025 9:10 AM EDT RAD ONC MSQ TREATMENT SUMMARY Routine 02/04/2025 9:05 AM EDT RAD ONC MSQ TREATMENT SUMMARY Routine 02/03/2025 9:13 AM EDT RAD ONC MSQ TREATMENT SUMMARY Routine 01/31/2025 10:33 AM EDT RAD ONC MSQ TREATMENT SUMMARY Routine 01/30/2025 9:09 AM EDT RAD ONC MSQ TREATMENT SUMMARY Routine 01/29/2025 9:05 AM EDT RAD ONC MSQ TREATMENT SUMMARY Routine 01/28/2025 9:07 AM EDT RAD ONC MSQ TREATMENT SUMMARY Routine 01/27/2025 9:05 AM EDT RAD ONC MSQ TREATMENT SUMMARY Routine 01/24/2025 9:02 AM EDT RAD ONC MSQ TREATMENT SUMMARY Routine 01/23/2025 9:04 AM EDT RAD ONC MSQ TREATMENT SUMMARY Routine 01/22/2025 9:11 AM EDT RAD ONC MSQ TREATMENT SUMMARY Routine 01/21/2025 9:04 AM EDT RAD ONC MSQ TREATMENT SUMMARY Routine 01/20/2025 9:01 AM EDT RAD ONC MSQ TREATMENT SUMMARY Routine 01/17/2025 9:01 AM EDT RAD ONC MSQ TREATMENT SUMMARY Routine 01/16/2025 8:59 AM EDT RAD ONC MSQ TREATMENT SUMMARY Routine 01/15/2025 9:07 AM EDT RAD ONC MSQ TREATMENT SUMMARY Routine 01/14/2025 9:16 AM EDT RAD ONC MSQ TREATMENT SUMMARY Routine 01/13/2025 9:01 AM EDT RAD ONC MSQ TREATMENT SUMMARY Routine 01/10/2025 9:00 AM EDT RAD ONC MSQ TREATMENT SUMMARY Routine 01/09/2025 11:31 AM EDT ONCOLOGY GENOMIC TYPE SEQUENCING, BREAST Routine 12/16/2024 9:17 AM EDT ONCOLOGY GENOMIC TYPE SEQUENCING, BREAST Routine 12/16/2024 9:14 AM EDT MG MAMMO DIGITAL DIAGNOSTIC POST CLIP RIGHT Routine 09/05/2024 8:42 AM EDT Breast asymmetry ANNUAL BMP BLOOD TEST Routine 09/02/2021 HEMOGLOBIN A1C Routine 09/02/2021 LIPID PANEL Routine 06/21/2021 URINE ALBUMIN CREATININE RATIO Routine 03/31/2021 HEPATITIS C SCREENING Routine 12/06/2017 from Last 3 Months or Most Recently Relevant to Health Maintenance Results * BD Bone Density DXA Axial Skeleton (02/19/2025 9:46 AM EDT) Anatomical Region Laterality Modality Wrist, Hip, L-spine Bone Densito metry 02/19/2025 9:51 AM EDT Impressions 02/19/2025 9:52 AM EDT 1. Osteopenia. There has been a decrease of 10.7% in bone mineral density in the lumbar spine since the prior examination of 02/15/2016. There has been a decrease of 5.7% in bone mineral density in the right femur and a decrease of 4.5% in bone mineral density in the left femur. 2. FRAX analysis yields a 10-year probability of major osteoporotic fracture of 5.4% and a 10-year probability of hip fracture of 0.7%. Code 92027 -------- FINAL REPORT -------- Dictated By: Donnell Gant Dictated Date: 02/19/2025 09:51 ET Assigned Physician: Donnell Gant Reviewed and Electronically Signed By: Donnell Gant Signed Date: 02/19/2025 09:52 ET Workstation ID: [id number] Transcribed By: Self Edit Transcribed Date: 02/19/2025 09:51 ET Narrative 02/19/2025 9:52 AM EDT HISTORY: The patient is a 70-year-old postmenopausal female with clinical concern for metabolic bone disease. FINDINGS: Dual energy x-ray absorptiometry of the lumbar spine and femurs is performed. The mean bone mineral density at L1-L4 is 1.132 gm/cm2 which is 96% of that of young normals and 111% of that of age matched controls. This yields a T-score of -0.4 and a Z-score of 0.9 and there is therefore no evidence of osteoporosis or osteopenia here. The mean bone mineral density of the femurs bilaterally is 1.011 gm/cm2 which is 100% of that of young normals and 118% of that of age matched controls. This yields a T-score of 0.0 and a Z-score of 1.2 and there is therefore no evidence of osteoporosis or osteopenia here. However, the T-score of the right femoral neck is -1.4 which is diagnostic of osteopenia. Procedure Note Donnell Gant MD - 02/19/2025 HISTORY: The patient is a 70-year-old postmenopausal female with clinicalconcern for metabolic bone disease. FINDINGS: Dual energy x-ray absorptiometry of the lumbar spine and femursis performed. The mean bone mineral density at L1-L4 is 1.132 gm/cm2 whichis 96% of that of young normals and 111% of that of age matched controls.This yields a T-score of -0.4 and a Z-score of 0.9 and there is thereforeno evidence of osteoporosis or osteopenia here. The mean bone mineral density of the femurs bilaterally is 1.011 gm/pd6regdg is 100% of that of young normals and 118% of that of age matchedcontrols. This yields a T-score of 0.0 and a Z-score of 1.2 and there istherefore no evidence of osteoporosis or osteopenia here. However, theT-score of the right femoral neck is -1.4 which is diagnostic ofosteopenia. IMPRESSION: 1. Osteopenia. There has been a decrease of 10.7% in bone mineral densityin the lumbar spine since the prior examination of 02/15/2016. There hasbeen a decrease of 5.7% in bone mineral density in the right femur and adecrease of 4.5% in bone mineral density in the left femur. 2. FRAX analysis yields a 10-year probability of major osteoporoticfracture of 5.4% and a 10-year probability of hip fracture of 0.7%. Code 66457 -------- FINAL REPORT -------- Dictated By: Donnell Gant Dictated Date: 02/19/2025 09:51 ET Assigned Physician: Donnell Gant Reviewed and Electronically Signed By: Donnell Gant Signed Date: 02/19/2025 09:52 ET Workstation ID: [id number] Transcribed By: Self Edit Transcribed Date: 02/19/2025 09:51 ET us Iris Olguin MD IMG DXA PROCEDURES Final Res ult * Rad Onc Msq Treatment Summary (02/05/2025 9:10 AM EDT) Treatment Site Right Breast Boost MOSAIQ RADIATION ONCOLOGY Course Number 1 MOSAIQ RADIATION ONCOLOGY Prescribed Fractional Dose 250 cGray MOSAIQ RADIATION ONCOLOGY Prescribed Total Dose 1,000 cGray MOSAIQ RADIATION ONCOLOGY Actual Fractions Delivered 4 MOSAIQ RADIATION ONCOLOGY Actual Session Delivered Dose 250 cGray MOSAIQ RADIATION ONCOLOGY Actual Total Dose 1,000 cGray MOSAIQ RADIATION ONCOLOGY Prescribed Technique NEW ZEALANDER/RPO MOSAIQ RADIATION ONCOLOGY Elapsed Days 5 MOSAIQ RADIATION ONCOLOGY Start Date 01/31/2025 MOSAIQ RADIATION ONCOLOGY Last Date 02/05/2025 MOSAIQ RADIATION ONCOLOGY Prescribed Number of Fractions 4 MOSAIQ RADIATION ONCOLOGY Treatment Site Left Breast Boost MOSAIQ RADIATION ONCOLOGY Course Number 1 MOSAIQ RADIATION ONCOLOGY Prescribed Fractional Dose 250 cGray MOSAIQ RADIATION ONCOLOGY Prescribed Total Dose 1,000 cGray MOSAIQ RADIATION ONCOLOGY Actual Fractions Delivered 4 MOSAIQ RADIATION ONCOLOGY Actual Session Delivered Dose 250 cGray MOSAIQ RADIATION ONCOLOGY Actual Total Dose 1,000 cGray MOSAIQ RADIATION ONCOLOGY Prescribed Technique KONG,LPO,NEW ZEALANDER MOSAIQ RADIATION ONCOLOGY Elapsed Days 5 MOSAIQ RADIATION ONCOLOGY Start Date 01/31/2025 MOSAIQ RADIATION ONCOLOGY Last Date 02/05/2025 MOSAIQ RADIATION ONCOLOGY Prescribed Number of Fractions 4 MOSAIQ RADIATION ONCOLOGY 02/05/2025 9:10 AM EDT Physician Radiation Oncology RADIATION ONCOLO GY ORDERABLES Final Result MOSAIQ RADIATION ONCOLOGY * Rad Onc Msq Treatment Summary (02/04/2025 9:05 AM EDT) Treatment Site Right Breast Boost MOSAIQ RADIATION ONCOLOGY Course Number 1 MOSAIQ RADIATION ONCOLOGY Prescribed Fractional Dose 250 cGray MOSAIQ RADIATION ONCOLOGY Prescribed Total Dose 1,000 cGray MOSAIQ RADIATION ONCOLOGY Actual Fractions Delivered 3 MOSAIQ RADIATION ONCOLOGY Actual Session Delivered Dose 250 cGray MOSAIQ RADIATION ONCOLOGY Actual Total Dose 750 cGray MOSAIQ RADIATION ONCOLOGY Prescribed Technique NEW ZEALANDER/RPO MOSAIQ RADIATION ONCOLOGY Elapsed Days 4 MOSAIQ RADIATION ONCOLOGY Start Date 01/31/2025 MOSAIQ RADIATION ONCOLOGY Last Date 02/04/2025 MOSAIQ RADIATION ONCOLOGY Prescribed Number of Fractions 4 MOSAIQ RADIATION ONCOLOGY Treatment Site Left Breast Boost MOSAIQ RADIATION ONCOLOGY Course Number 1 MOSAIQ RADIATION ONCOLOGY Prescribed Fractional Dose 250 cGray MOSAIQ RADIATION ONCOLOGY Prescribed Total Dose 1,000 cGray MOSAIQ RADIATION ONCOLOGY Actual Fractions Delivered 3 MOSAIQ RADIATION ONCOLOGY Actual Session Delivered Dose 250 cGray MOSAIQ RADIATION ONCOLOGY Actual Total Dose 750 cGray MOSAIQ RADIATION ONCOLOGY Prescribed Technique KONG,LPO,NEW ZEALANDER MOSAIQ RADIATION ONCOLOGY Elapsed Days 4 MOSAIQ RADIATION ONCOLOGY Start Date 01/31/2025 MOSAIQ RADIATION ONCOLOGY Last Date 02/04/2025 MOSAIQ RADIATION ONCOLOGY Prescribed Number of Fractions 4 MOSAIQ RADIATION ONCOLOGY 02/04/2025 9:05 AM EDT Physician Radiation Oncology RADIATION ONCOLO GY ORDERABLES Final Result MOSAIQ RADIATION ONCOLOGY * Rad Onc Msq Treatment Summary (02/03/2025 9:13 AM EDT) Treatment Site Right Breast Boost MOSAIQ RADIATION ONCOLOGY Course Number 1 MOSAIQ RADIATION ONCOLOGY Prescribed Fractional Dose 250 cGray MOSAIQ RADIATION ONCOLOGY Prescribed Total Dose 1,000 cGray MOSAIQ RADIATION ONCOLOGY Actual Fractions Delivered 2 MOSAIQ RADIATION ONCOLOGY Actual Session Delivered Dose 250 cGray MOSAIQ RADIATION ONCOLOGY Actual Total Dose 500 cGray MOSAIQ RADIATION ONCOLOGY Prescribed Technique NEW ZEALANDER/RPO MOSAIQ RADIATION ONCOLOGY Elapsed Days 3 MOSAIQ RADIATION ONCOLOGY Start Date 01/31/2025 MOSAIQ RADIATION ONCOLOGY Last Date 02/03/2025 MOSAIQ RADIATION ONCOLOGY Prescribed Number of Fractions 4 MOSAIQ RADIATION ONCOLOGY Treatment Site Left Breast Boost MOSAIQ RADIATION ONCOLOGY Course Number 1 MOSAIQ RADIATION ONCOLOGY Prescribed Fractional Dose 250 cGray MOSAIQ RADIATION ONCOLOGY Prescribed Total Dose 1,000 cGray MOSAIQ RADIATION ONCOLOGY Actual Fractions Delivered 2 MOSAIQ RADIATION ONCOLOGY Actual Session Delivered Dose 250 cGray MOSAIQ RADIATION ONCOLOGY Actual Total Dose 500 cGray MOSAIQ RADIATION ONCOLOGY Prescribed Technique KONG,LPO,NEW ZEALANDER MOSAIQ RADIATION ONCOLOGY Elapsed Days 3 MOSAIQ RADIATION ONCOLOGY Start Date 01/31/2025 MOSAIQ RADIATION ONCOLOGY Last Date 02/03/2025 MOSAIQ RADIATION ONCOLOGY Prescribed Number of Fractions 4 MOSAIQ RADIATION ONCOLOGY 02/03/2025 9:13 AM EDT Physician Radiation Oncology MD RADIATION ONCOLO GY ORDERABLES Final Result MOSAIQ RADIATION ONCOLOGY * Rad Onc Msq Treatment Summary (01/31/2025 10:33 AM EDT) Treatment Site Right Breast Boost MOSAIQ RADIATION ONCOLOGY Course Number 1 MOSAIQ RADIATION ONCOLOGY Prescribed Fractional Dose 250 cGray MOSAIQ RADIATION ONCOLOGY Prescribed Total Dose 1,000 cGray MOSAIQ RADIATION ONCOLOGY Actual Fractions Delivered 1 MOSAIQ RADIATION ONCOLOGY Actual Session Delivered Dose 250 cGray MOSAIQ RADIATION ONCOLOGY Actual Total Dose 250 cGray MOSAIQ RADIATION ONCOLOGY Prescribed Technique NEW ZEALANDER/RPO MOSAIQ RADIATION ONCOLOGY Elapsed Days 0 MOSAIQ RADIATION ONCOLOGY Start Date 01/31/2025 MOSAIQ RADIATION ONCOLOGY Last Date 01/31/2025 MOSAIQ RADIATION ONCOLOGY Prescribed Number of Fractions 4 MOSAIQ RADIATION ONCOLOGY Treatment Site Left Breast Boost MOSAIQ RADIATION ONCOLOGY Course Number 1 MOSAIQ RADIATION ONCOLOGY Prescribed Fractional Dose 250 cGray MOSAIQ RADIATION ONCOLOGY Prescribed Total Dose 1,000 cGray MOSAIQ RADIATION ONCOLOGY Actual Fractions Delivered 1 MOSAIQ RADIATION ONCOLOGY Actual Session Delivered Dose 250 cGray MOSAIQ RADIATION ONCOLOGY Actual Total Dose 250 cGray MOSAIQ RADIATION ONCOLOGY Prescribed Technique KONG,LPO,NEW ZEALANDER MOSAIQ RADIATION ONCOLOGY Elapsed Days 0 MOSAIQ RADIATION ONCOLOGY Start Date 01/31/2025 MOSAIQ RADIATION ONCOLOGY Last Date 01/31/2025 MOSAIQ RADIATION ONCOLOGY Prescribed Number of Fractions 4 MOSAIQ RADIATION ONCOLOGY 01/31/2025 10:3 3 AM EDT Physician Radiation Oncology RADIATION ONCOLO GY ORDERABLES Final Result MOSAIQ RADIATION ONCOLOGY * Rad Onc Msq Treatment Summary (01/30/2025 9:09 AM EDT) Treatment Site Right Breast MO SAIQ RADIATION ONCOLOGY Course Number 1 MOSAIQ RADIATION ONCOLOGY Prescribed Fractional Dose 267 cGray MOSAIQ RADIATION ONCOLOGY Prescribed Total Dose 4,272 cGray MOSAIQ RADIATION ONCOLOGY Actual Fractions Delivered 16 MOSAIQ RADIATION ONCOLOGY Actual Session Delivered Dose 267 cGray MOSAIQ RADIATION ONCOLOGY Actual Total Dose 4,272 cGray MOSAIQ RADIATION ONCOLOGY Prescribed Technique Tangents MOSAIQ RADIATION ONCOLOGY Elapsed Days 21 MOSAIQ RADIATION ONCOLOGY Start Date 01/09/2025 MOSAIQ RADIATION ONCOLOGY Last Date 01/30/2025 MOSAIQ RADIATION ONCOLOGY Prescribed Number of Fractions 16 MOSAIQ RADIATION ONCOLOGY Treatment Site Left Breast MOS AIQ RADIATION ONCOLOGY Course Number 1 MOSAIQ RADIATION ONCOLOGY Prescribed Fractional Dose 267 cGray MOSAIQ RADIATION ONCOLOGY Prescribed Total Dose 4,272 cGray MOSAIQ RADIATION ONCOLOGY Actual Fractions Delivered 16 MOSAIQ RADIATION ONCOLOGY Actual Session Delivered Dose 267 cGray MOSAIQ RADIATION ONCOLOGY Actual Total Dose 4,272 cGray MOSAIQ RADIATION ONCOLOGY Prescribed Technique Tangents MOSAIQ RADIATION ONCOLOGY Elapsed Days 21 MOSAIQ RADIATION ONCOLOGY Start Date 01/09/2025 MOSAIQ RADIATION ONCOLOGY Last Date 01/30/2025 MOSAIQ RADIATION ONCOLOGY Prescribed Number of Fractions 16 MOSAIQ RADIATION ONCOLOGY 01/30/2025 9:09 AM EDT Physician Radiation Oncology RADIATION ONCANAHY GY ORDERABLES Final Result MOSAIQ RADIATION ONCOLOGY * Rad Onc Msq Treatment Summary (01/29/2025 9:05 AM EDT) Treatment Site Right Breast MO SAIQ RADIATION ONCOLOGY Course Number 1 MOSAIQ RADIATION ONCOLOGY Prescribed Fractional Dose 267 cGray MOSAIQ RADIATION ONCOLOGY Prescribed Total Dose 4,272 cGray MOSAIQ RADIATION ONCOLOGY Actual Fractions Delivered 15 MOSAIQ RADIATION ONCOLOGY Actual Session Delivered Dose 267 cGray MOSAIQ RADIATION ONCOLOGY Actual Total Dose 4,005 cGray MOSAIQ RADIATION ONCOLOGY Prescribed Technique Tangents MOSAIQ RADIATION ONCOLOGY Elapsed Days 20 MOSAIQ RADIATION ONCOLOGY Start Date 01/09/2025 MOSAIQ RADIATION ONCOLOGY Last Date 01/29/2025 MOSAIQ RADIATION ONCOLOGY Prescribed Number of Fractions 16 MOSAIQ RADIATION ONCOLOGY Treatment Site Left Breast MOS AIQ RADIATION ONCOLOGY Course Number 1 MOSAIQ RADIATION ONCOLOGY Prescribed Fractional Dose 267 cGray MOSAIQ RADIATION ONCOLOGY Prescribed Total Dose 4,272 cGray MOSAIQ RADIATION ONCOLOGY Actual Fractions Delivered 15 MOSAIQ RADIATION ONCOLOGY Actual Session Delivered Dose 267 cGray MOSAIQ RADIATION ONCOLOGY Actual Total Dose 4,005 cGray MOSAIQ RADIATION ONCOLOGY Prescribed Technique Tangents MOSAIQ RADIATION ONCOLOGY Elapsed Days 20 MOSAIQ RADIATION ONCOLOGY Start Date 01/09/2025 MOSAIQ RADIATION ONCOLOGY Last Date 01/29/2025 MOSAIQ RADIATION ONCOLOGY Prescribed Number of Fractions 16 MOSAIQ RADIATION ONCOLOGY 01/29/2025 9:05 AM EDT Physician Radiation Oncology RADIATION ONCOLO GY ORDERABLES Final Result MOSAIQ RADIATION ONCOLOGY * Rad Onc Msq Treatment Summary (01/28/2025 9:07 AM EDT) Treatment Site Right Breast MO SAIQ RADIATION ONCOLOGY Course Number 1 MOSAIQ RADIATION ONCOLOGY Prescribed Fractional Dose 267 cGray MOSAIQ RADIATION ONCOLOGY Prescribed Total Dose 4,272 cGray MOSAIQ RADIATION ONCOLOGY Actual Fractions Delivered 14 MOSAIQ RADIATION ONCOLOGY Actual Session Delivered Dose 267 cGray MOSAIQ RADIATION ONCOLOGY Actual Total Dose 3,738 cGray MOSAIQ RADIATION ONCOLOGY Prescribed Technique Tangents MOSAIQ RADIATION ONCOLOGY Elapsed Days 19 MOSAIQ RADIATION ONCOLOGY Start Date 01/09/2025 MOSAIQ RADIATION ONCOLOGY Last Date 01/28/2025 MOSAIQ RADIATION ONCOLOGY Prescribed Number of Fractions 16 MOSAIQ RADIATION ONCOLOGY Treatment Site Left Breast MOS AIQ RADIATION ONCOLOGY Course Number 1 MOSAIQ RADIATION ONCOLOGY Prescribed Fractional Dose 267 cGray MOSAIQ RADIATION ONCOLOGY Prescribed Total Dose 4,272 cGray MOSAIQ RADIATION ONCOLOGY Actual Fractions Delivered 14 MOSAIQ RADIATION ONCOLOGY Actual Session Delivered Dose 267 cGray MOSAIQ RADIATION ONCOLOGY Actual Total Dose 3,738 cGray MOSAIQ RADIATION ONCOLOGY Prescribed Technique Tangents MOSAIQ RADIATION ONCOLOGY Elapsed Days 19 MOSAIQ RADIATION ONCOLOGY Start Date 01/09/2025 MOSAIQ RADIATION ONCOLOGY Last Date 01/28/2025 MOSAIQ RADIATION ONCOLOGY Prescribed Number of Fractions 16 MOSAIQ RADIATION ONCOLOGY 01/28/2025 9:07 AM EDT Physician Radiation Oncology RADIATION ONCOLO GY ORDERABLES Final Result MOSAIQ RADIATION ONCOLOGY * Rad Onc Msq Treatment Summary (01/27/2025 9:05 AM EDT) Treatment Site Right Breast MO SAIQ RADIATION ONCOLOGY Course Number 1 MOSAIQ RADIATION ONCOLOGY Prescribed Fractional Dose 267 cGray MOSAIQ RADIATION ONCOLOGY Prescribed Total Dose 4,272 cGray MOSAIQ RADIATION ONCOLOGY Actual Fractions Delivered 13 MOSAIQ RADIATION ONCOLOGY Actual Session Delivered Dose 267 cGray MOSAIQ RADIATION ONCOLOGY Actual Total Dose 3,471 cGray MOSAIQ RADIATION ONCOLOGY Prescribed Technique Tangents MOSAIQ RADIATION ONCOLOGY Elapsed Days 18 MOSAIQ RADIATION ONCOLOGY Start Date 01/09/2025 MOSAIQ RADIATION ONCOLOGY Last Date 01/27/2025 MOSAIQ RADIATION ONCOLOGY Prescribed Number of Fractions 16 MOSAIQ RADIATION ONCOLOGY Treatment Site Left Breast MOS AIQ RADIATION ONCOLOGY Course Number 1 MOSAIQ RADIATION ONCOLOGY Prescribed Fractional Dose 267 cGray MOSAIQ RADIATION ONCOLOGY Prescribed Total Dose 4,272 cGray MOSAIQ RADIATION ONCOLOGY Actual Fractions Delivered 13 MOSAIQ RADIATION ONCOLOGY Actual Session Delivered Dose 267 cGray MOSAIQ RADIATION ONCOLOGY Actual Total Dose 3,471 cGray MOSAIQ RADIATION ONCOLOGY Prescribed Technique Tangents MOSAIQ RADIATION ONCOLOGY Elapsed Days 18 MOSAIQ RADIATION ONCOLOGY Start Date 01/09/2025 MOSAIQ RADIATION ONCOLOGY Last Date 01/27/2025 MOSAIQ RADIATION ONCOLOGY Prescribed Number of Fractions 16 MOSAIQ RADIATION ONCOLOGY 01/27/2025 9:05 AM EDT Physician Radiation Oncology RADIATION ONCOLO GY ORDERABLES Final Result MOSAIQ RADIATION ONCOLOGY * Rad Onc Msq Treatment Summary (01/24/2025 9:02 AM EDT) Treatment Site Right Breast MO SAIQ RADIATION ONCOLOGY Course Number 1 MOSAIQ RADIATION ONCOLOGY Prescribed Fractional Dose 267 cGray MOSAIQ RADIATION ONCOLOGY Prescribed Total Dose 4,272 cGray MOSAIQ RADIATION ONCOLOGY Actual Fractions Delivered 12 MOSAIQ RADIATION ONCOLOGY Actual Session Delivered Dose 267 cGray MOSAIQ RADIATION ONCOLOGY Actual Total Dose 3,204 cGray MOSAIQ RADIATION ONCOLOGY Prescribed Technique Tangents MOSAIQ RADIATION ONCOLOGY Elapsed Days 15 MOSAIQ RADIATION ONCOLOGY Start Date 01/09/2025 MOSAIQ RADIATION ONCOLOGY Last Date 01/24/2025 MOSAIQ RADIATION ONCOLOGY Prescribed Number of Fractions 16 MOSAIQ RADIATION ONCOLOGY Treatment Site Left Breast MOS AIQ RADIATION ONCOLOGY Course Number 1 MOSAIQ RADIATION ONCOLOGY Prescribed Fractional Dose 267 cGray MOSAIQ RADIATION ONCOLOGY Prescribed Total Dose 4,272 cGray MOSAIQ RADIATION ONCOLOGY Actual Fractions Delivered 12 MOSAIQ RADIATION ONCOLOGY Actual Session Delivered Dose 267 cGray MOSAIQ RADIATION ONCOLOGY Actual Total Dose 3,204 cGray MOSAIQ RADIATION ONCOLOGY Prescribed Technique Tangents MOSAIQ RADIATION ONCOLOGY Elapsed Days 15 MOSAIQ RADIATION ONCOLOGY Start Date 01/09/2025 MOSAIQ RADIATION ONCOLOGY Last Date 01/24/2025 MOSAIQ RADIATION ONCOLOGY Prescribed Number of Fractions 16 MOSAIQ RADIATION ONCOLOGY 01/24/2025 9:02 AM EDT Physician Radiation Oncology RADIATION ONCANAHY GY ORDERABLES Final Result MOSAIQ RADIATION ONCOLOGY * Rad Onc Msq Treatment Summary (01/23/2025 9:04 AM EDT) Treatment Site Right Breast MO SAIQ RADIATION ONCOLOGY Course Number 1 MOSAIQ RADIATION ONCOLOGY Prescribed Fractional Dose 267 cGray MOSAIQ RADIATION ONCOLOGY Prescribed Total Dose 4,272 cGray MOSAIQ RADIATION ONCOLOGY Actual Fractions Delivered 11 MOSAIQ RADIATION ONCOLOGY Actual Session Delivered Dose 267 cGray MOSAIQ RADIATION ONCOLOGY Actual Total Dose 2,937 cGray MOSAIQ RADIATION ONCOLOGY Prescribed Technique Tangents MOSAIQ RADIATION ONCOLOGY Elapsed Days 14 MOSAIQ RADIATION ONCOLOGY Start Date 01/09/2025 MOSAIQ RADIATION ONCOLOGY Last Date 01/23/2025 MOSAIQ RADIATION ONCOLOGY Prescribed Number of Fractions 16 MOSAIQ RADIATION ONCOLOGY Treatment Site Left Breast MOS AIQ RADIATION ONCOLOGY Course Number 1 MOSAIQ RADIATION ONCOLOGY Prescribed Fractional Dose 267 cGray MOSAIQ RADIATION ONCOLOGY Prescribed Total Dose 4,272 cGray MOSAIQ RADIATION ONCOLOGY Actual Fractions Delivered 11 MOSAIQ RADIATION ONCOLOGY Actual Session Delivered Dose 267 cGray MOSAIQ RADIATION ONCOLOGY Actual Total Dose 2,937 cGray MOSAIQ RADIATION ONCOLOGY Prescribed Technique Tangents MOSAIQ RADIATION ONCOLOGY Elapsed Days 14 MOSAIQ RADIATION ONCOLOGY Start Date 01/09/2025 MOSAIQ RADIATION ONCOLOGY Last Date 01/23/2025 MOSAIQ RADIATION ONCOLOGY Prescribed Number of Fractions 16 MOSAIQ RADIATION ONCOLOGY 01/23/2025 9:04 AM EDT Physician Radiation Oncology MD RADIATION ONCOLO GY ORDERABLES Final Result MOSAIQ RADIATION ONCOLOGY * Rad Onc Msq Treatment Summary (01/22/2025 9:11 AM EDT) Treatment Site Right Breast MO SAIQ RADIATION ONCOLOGY Course Number 1 MOSAIQ RADIATION ONCOLOGY Prescribed Fractional Dose 267 cGray MOSAIQ RADIATION ONCOLOGY Prescribed Total Dose 4,272 cGray MOSAIQ RADIATION ONCOLOGY Actual Fractions Delivered 10 MOSAIQ RADIATION ONCOLOGY Actual Session Delivered Dose 267 cGray MOSAIQ RADIATION ONCOLOGY Actual Total Dose 2,670 cGray MOSAIQ RADIATION ONCOLOGY Prescribed Technique Tangents MOSAIQ RADIATION ONCOLOGY Elapsed Days 13 MOSAIQ RADIATION ONCOLOGY Start Date 01/09/2025 MOSAIQ RADIATION ONCOLOGY Last Date 01/22/2025 MOSAIQ RADIATION ONCOLOGY Prescribed Number of Fractions 16 MOSAIQ RADIATION ONCOLOGY Treatment Site Left Breast MOS AIQ RADIATION ONCOLOGY Course Number 1 MOSAIQ RADIATION ONCOLOGY Prescribed Fractional Dose 267 cGray MOSAIQ RADIATION ONCOLOGY Prescribed Total Dose 4,272 cGray MOSAIQ RADIATION ONCOLOGY Actual Fractions Delivered 10 MOSAIQ RADIATION ONCOLOGY Actual Session Delivered Dose 267 cGray MOSAIQ RADIATION ONCOLOGY Actual Total Dose 2,670 cGray MOSAIQ RADIATION ONCOLOGY Prescribed Technique Tangents MOSAIQ RADIATION ONCOLOGY Elapsed Days 13 MOSAIQ RADIATION ONCOLOGY Start Date 01/09/2025 MOSAIQ RADIATION ONCOLOGY Last Date 01/22/2025 MOSAIQ RADIATION ONCOLOGY Prescribed Number of Fractions 16 MOSAIQ RADIATION ONCOLOGY 01/22/2025 9:11 AM EDT Physician Radiation Oncology RADIATION ONCANAHY GY ORDERABLES Final Result MOSAIQ RADIATION ONCOLOGY * Rad Onc Msq Treatment Summary (01/21/2025 9:04 AM EDT) Treatment Site Right Breast MO SAIQ RADIATION ONCOLOGY Course Number 1 MOSAIQ RADIATION ONCOLOGY Prescribed Fractional Dose 267 cGray MOSAIQ RADIATION ONCOLOGY Prescribed Total Dose 4,272 cGray MOSAIQ RADIATION ONCOLOGY Actual Fractions Delivered 9 MOSAIQ RADIATION ONCOLOGY Actual Session Delivered Dose 267 cGray MOSAIQ RADIATION ONCOLOGY Actual Total Dose 2,403 cGray MOSAIQ RADIATION ONCOLOGY Prescribed Technique Tangents MOSAIQ RADIATION ONCOLOGY Elapsed Days 12 MOSAIQ RADIATION ONCOLOGY Start Date 01/09/2025 MOSAIQ RADIATION ONCOLOGY Last Date 01/21/2025 MOSAIQ RADIATION ONCOLOGY Prescribed Number of Fractions 16 MOSAIQ RADIATION ONCOLOGY Treatment Site Left Breast MOS AIQ RADIATION ONCOLOGY Course Number 1 MOSAIQ RADIATION ONCOLOGY Prescribed Fractional Dose 267 cGray MOSAIQ RADIATION ONCOLOGY Prescribed Total Dose 4,272 cGray MOSAIQ RADIATION ONCOLOGY Actual Fractions Delivered 9 MOSAIQ RADIATION ONCOLOGY Actual Session Delivered Dose 267 cGray MOSAIQ RADIATION ONCOLOGY Actual Total Dose 2,403 cGray MOSAIQ RADIATION ONCOLOGY Prescribed Technique Tangents MOSAIQ RADIATION ONCOLOGY Elapsed Days 12 MOSAIQ RADIATION ONCOLOGY Start Date 01/09/2025 MOSAIQ RADIATION ONCOLOGY Last Date 01/21/2025 MOSAIQ RADIATION ONCOLOGY Prescribed Number of Fractions 16 MOSAIQ RADIATION ONCOLOGY 01/21/2025 9:04 AM EDT Physician Radiation Oncology RADIATION ONCOLO GY ORDERABLES Final Result MOSAIQ RADIATION ONCOLOGY * Rad Onc Msq Treatment Summary (01/20/2025 9:01 AM EDT) Treatment Site Right Breast MO SAIQ RADIATION ONCOLOGY Course Number 1 MOSAIQ RADIATION ONCOLOGY Prescribed Fractional Dose 267 cGray MOSAIQ RADIATION ONCOLOGY Prescribed Total Dose 4,272 cGray MOSAIQ RADIATION ONCOLOGY Actual Fractions Delivered 8 MOSAIQ RADIATION ONCOLOGY Actual Session Delivered Dose 267 cGray MOSAIQ RADIATION ONCOLOGY Actual Total Dose 2,136 cGray MOSAIQ RADIATION ONCOLOGY Prescribed Technique Tangents MOSAIQ RADIATION ONCOLOGY Elapsed Days 11 MOSAIQ RADIATION ONCOLOGY Start Date 01/09/2025 MOSAIQ RADIATION ONCOLOGY Last Date 01/20/2025 MOSAIQ RADIATION ONCOLOGY Prescribed Number of Fractions 16 MOSAIQ RADIATION ONCOLOGY Treatment Site Left Breast MOS AIQ RADIATION ONCOLOGY Course Number 1 MOSAIQ RADIATION ONCOLOGY Prescribed Fractional Dose 267 cGray MOSAIQ RADIATION ONCOLOGY Prescribed Total Dose 4,272 cGray MOSAIQ RADIATION ONCOLOGY Actual Fractions Delivered 8 MOSAIQ RADIATION ONCOLOGY Actual Session Delivered Dose 267 cGray MOSAIQ RADIATION ONCOLOGY Actual Total Dose 2,136 cGray MOSAIQ RADIATION ONCOLOGY Prescribed Technique Tangents MOSAIQ RADIATION ONCOLOGY Elapsed Days 11 MOSAIQ RADIATION ONCOLOGY Start Date 01/09/2025 MOSAIQ RADIATION ONCOLOGY Last Date 01/20/2025 MOSAIQ RADIATION ONCOLOGY Prescribed Number of Fractions 16 MOSAIQ RADIATION ONCOLOGY 01/20/2025 9:01 AM EDT Physician Radiation Oncology MD RADIATION ONCOLO GY ORDERABLES Final Result MOSAIQ RADIATION ONCOLOGY * Rad Onc Msq Treatment Summary (01/17/2025 9:01 AM EDT) Treatment Site Right Breast MO SAIQ RADIATION ONCOLOGY Course Number 1 MOSAIQ RADIATION ONCOLOGY Prescribed Fractional Dose 267 cGray MOSAIQ RADIATION ONCOLOGY Prescribed Total Dose 4,272 cGray MOSAIQ RADIATION ONCOLOGY Actual Fractions Delivered 7 MOSAIQ RADIATION ONCOLOGY Actual Session Delivered Dose 267 cGray MOSAIQ RADIATION ONCOLOGY Actual Total Dose 1,869 cGray MOSAIQ RADIATION ONCOLOGY Prescribed Technique Tangents MOSAIQ RADIATION ONCOLOGY Elapsed Days 8 MOSAIQ RADIATION ONCOLOGY Start Date 01/09/2025 MOSAIQ RADIATION ONCOLOGY Last Date 01/17/2025 MOSAIQ RADIATION ONCOLOGY Prescribed Number of Fractions 16 MOSAIQ RADIATION ONCOLOGY Treatment Site Left Breast MOS AIQ RADIATION ONCOLOGY Course Number 1 MOSAIQ RADIATION ONCOLOGY Prescribed Fractional Dose 267 cGray MOSAIQ RADIATION ONCOLOGY Prescribed Total Dose 4,272 cGray MOSAIQ RADIATION ONCOLOGY Actual Fractions Delivered 7 MOSAIQ RADIATION ONCOLOGY Actual Session Delivered Dose 267 cGray MOSAIQ RADIATION ONCOLOGY Actual Total Dose 1,869 cGray MOSAIQ RADIATION ONCOLOGY Prescribed Technique Tangents MOSAIQ RADIATION ONCOLOGY Elapsed Days 8 MOSAIQ RADIATION ONCOLOGY Start Date 01/09/2025 MOSAIQ RADIATION ONCOLOGY Last Date 01/17/2025 MOSAIQ RADIATION ONCOLOGY Prescribed Number of Fractions 16 MOSAIQ RADIATION ONCOLOGY 01/17/2025 9:01 AM EDT us Physician Radiation Oncology RADIATION ONCANAHY GY ORDERABLES Final Result MOSAIQ RADIATION ONCOLOGY * Rad Onc Msq Treatment Summary (01/16/2025 8:59 AM EDT) Treatment Site Right Breast MO SAIQ RADIATION ONCOLOGY Course Number 1 MOSAIQ RADIATION ONCOLOGY Prescribed Fractional Dose 267 cGray MOSAIQ RADIATION ONCOLOGY Prescribed Total Dose 4,272 cGray MOSAIQ RADIATION ONCOLOGY Actual Fractions Delivered 6 MOSAIQ RADIATION ONCOLOGY Actual Session Delivered Dose 267 cGray MOSAIQ RADIATION ONCOLOGY Actual Total Dose 1,602 cGray MOSAIQ RADIATION ONCOLOGY Prescribed Technique Tangents MOSAIQ RADIATION ONCOLOGY Elapsed Days 7 MOSAIQ RADIATION ONCOLOGY Start Date 01/09/2025 MOSAIQ RADIATION ONCOLOGY Last Date 01/16/2025 MOSAIQ RADIATION ONCOLOGY Prescribed Number of Fractions 16 MOSAIQ RADIATION ONCOLOGY Treatment Site Left Breast MOS AIQ RADIATION ONCOLOGY Course Number 1 MOSAIQ RADIATION ONCOLOGY Prescribed Fractional Dose 267 cGray MOSAIQ RADIATION ONCOLOGY Prescribed Total Dose 4,272 cGray MOSAIQ RADIATION ONCOLOGY Actual Fractions Delivered 6 MOSAIQ RADIATION ONCOLOGY Actual Session Delivered Dose 267 cGray MOSAIQ RADIATION ONCOLOGY Actual Total Dose 1,602 cGray MOSAIQ RADIATION ONCOLOGY Prescribed Technique Tangents MOSAIQ RADIATION ONCOLOGY Elapsed Days 7 MOSAIQ RADIATION ONCOLOGY Start Date 01/09/2025 MOSAIQ RADIATION ONCOLOGY Last Date 01/16/2025 MOSAIQ RADIATION ONCOLOGY Prescribed Number of Fractions 16 MOSAIQ RADIATION ONCOLOGY 01/16/2025 8:59 AM EDT Physician Radiation Oncology RADIATION ONCANAHY GY ORDERABLES Final Result MOSAIQ RADIATION ONCOLOGY * Rad Onc Msq Treatment Summary (01/15/2025 9:07 AM EDT) Treatment Site Right Breast MO SAIQ RADIATION ONCOLOGY Course Number 1 MOSAIQ RADIATION ONCOLOGY Prescribed Fractional Dose 267 cGray MOSAIQ RADIATION ONCOLOGY Prescribed Total Dose 4,272 cGray MOSAIQ RADIATION ONCOLOGY Actual Fractions Delivered 5 MOSAIQ RADIATION ONCOLOGY Actual Session Delivered Dose 267 cGray MOSAIQ RADIATION ONCOLOGY Actual Total Dose 1,335 cGray MOSAIQ RADIATION ONCOLOGY Prescribed Technique Tangents MOSAIQ RADIATION ONCOLOGY Elapsed Days 6 MOSAIQ RADIATION ONCOLOGY Start Date 01/09/2025 MOSAIQ RADIATION ONCOLOGY Last Date 01/15/2025 MOSAIQ RADIATION ONCOLOGY Prescribed Number of Fractions 16 MOSAIQ RADIATION ONCOLOGY Treatment Site Left Breast MOS AIQ RADIATION ONCOLOGY Course Number 1 MOSAIQ RADIATION ONCOLOGY Prescribed Fractional Dose 267 cGray MOSAIQ RADIATION ONCOLOGY Prescribed Total Dose 4,272 cGray MOSAIQ RADIATION ONCOLOGY Actual Fractions Delivered 5 MOSAIQ RADIATION ONCOLOGY Actual Session Delivered Dose 267 cGray MOSAIQ RADIATION ONCOLOGY Actual Total Dose 1,335 cGray MOSAIQ RADIATION ONCOLOGY Prescribed Technique Tangents MOSAIQ RADIATION ONCOLOGY Elapsed Days 6 MOSAIQ RADIATION ONCOLOGY Start Date 01/09/2025 MOSAIQ RADIATION ONCOLOGY Last Date 01/15/2025 MOSAIQ RADIATION ONCOLOGY Prescribed Number of Fractions 16 MOSAIQ RADIATION ONCOLOGY 01/15/2025 9:07 AM EDT Physician Radiation Oncology MD RADIATION ONCOLO GY ORDERABLES Final Result MOSAIQ RADIATION ONCOLOGY * Rad Onc Msq Treatment Summary (01/14/2025 9:16 AM EDT) Treatment Site Right Breast MO SAIQ RADIATION ONCOLOGY Course Number 1 MOSAIQ RADIATION ONCOLOGY Prescribed Fractional Dose 267 cGray MOSAIQ RADIATION ONCOLOGY Prescribed Total Dose 4,272 cGray MOSAIQ RADIATION ONCOLOGY Actual Fractions Delivered 4 MOSAIQ RADIATION ONCOLOGY Actual Session Delivered Dose 267 cGray MOSAIQ RADIATION ONCOLOGY Actual Total Dose 1,068 cGray MOSAIQ RADIATION ONCOLOGY Prescribed Technique Tangents MOSAIQ RADIATION ONCOLOGY Elapsed Days 5 MOSAIQ RADIATION ONCOLOGY Start Date 01/09/2025 MOSAIQ RADIATION ONCOLOGY Last Date 01/14/2025 MOSAIQ RADIATION ONCOLOGY Prescribed Number of Fractions 16 MOSAIQ RADIATION ONCOLOGY Treatment Site Left Breast MOS AIQ RADIATION ONCOLOGY Course Number 1 MOSAIQ RADIATION ONCOLOGY Prescribed Fractional Dose 267 cGray MOSAIQ RADIATION ONCOLOGY Prescribed Total Dose 4,272 cGray MOSAIQ RADIATION ONCOLOGY Actual Fractions Delivered 4 MOSAIQ RADIATION ONCOLOGY Actual Session Delivered Dose 267 cGray MOSAIQ RADIATION ONCOLOGY Actual Total Dose 1,068 cGray MOSAIQ RADIATION ONCOLOGY Prescribed Technique Tangents MOSAIQ RADIATION ONCOLOGY Elapsed Days 5 MOSAIQ RADIATION ONCOLOGY Start Date 01/09/2025 MOSAIQ RADIATION ONCOLOGY Last Date 01/14/2025 MOSAIQ RADIATION ONCOLOGY Prescribed Number of Fractions 16 MOSAIQ RADIATION ONCOLOGY 01/14/2025 9:16 AM EDT Physician Radiation Oncology RADIATION LISA GY ORDERABLES Final Result MOSAIQ RADIATION ONCOLOGY * Rad Onc Msq Treatment Summary (01/13/2025 9:01 AM EDT) Treatment Site Right Breast MO SAIQ RADIATION ONCOLOGY Course Number 1 MOSAIQ RADIATION ONCOLOGY Prescribed Fractional Dose 267 cGray MOSAIQ RADIATION ONCOLOGY Prescribed Total Dose 4,272 cGray MOSAIQ RADIATION ONCOLOGY Actual Fractions Delivered 3 MOSAIQ RADIATION ONCOLOGY Actual Session Delivered Dose 267 cGray MOSAIQ RADIATION ONCOLOGY Actual Total Dose 801 cGray MOSAIQ RADIATION ONCOLOGY Prescribed Technique Tangents MOSAIQ RADIATION ONCOLOGY Elapsed Days 4 MOSAIQ RADIATION ONCOLOGY Start Date 01/09/2025 MOSAIQ RADIATION ONCOLOGY Last Date 01/13/2025 MOSAIQ RADIATION ONCOLOGY Prescribed Number of Fractions 16 MOSAIQ RADIATION ONCOLOGY Treatment Site Left Breast MOS AIQ RADIATION ONCOLOGY Course Number 1 MOSAIQ RADIATION ONCOLOGY Prescribed Fractional Dose 267 cGray MOSAIQ RADIATION ONCOLOGY Prescribed Total Dose 4,272 cGray MOSAIQ RADIATION ONCOLOGY Actual Fractions Delivered 3 MOSAIQ RADIATION ONCOLOGY Actual Session Delivered Dose 267 cGray MOSAIQ RADIATION ONCOLOGY Actual Total Dose 801 cGray MOSAIQ RADIATION ONCOLOGY Prescribed Technique Tangents MOSAIQ RADIATION ONCOLOGY Elapsed Days 4 MOSAIQ RADIATION ONCOLOGY Start Date 01/09/2025 MOSAIQ RADIATION ONCOLOGY Last Date 01/13/2025 MOSAIQ RADIATION ONCOLOGY Prescribed Number of Fractions 16 MOSAIQ RADIATION ONCOLOGY 01/13/2025 9:01 AM EDT us Physician Radiation Oncology RADIATION ONCANAHY GY ORDERABLES Final Result MOSAIQ RADIATION ONCOLOGY * Rad Onc Msq Treatment Summary (01/10/2025 9:00 AM EDT) Treatment Site Right Breast MO SAIQ RADIATION ONCOLOGY Course Number 1 MOSAIQ RADIATION ONCOLOGY Prescribed Fractional Dose 267 cGray MOSAIQ RADIATION ONCOLOGY Prescribed Total Dose 4,272 cGray MOSAIQ RADIATION ONCOLOGY Actual Fractions Delivered 2 MOSAIQ RADIATION ONCOLOGY Actual Session Delivered Dose 267 cGray MOSAIQ RADIATION ONCOLOGY Actual Total Dose 534 cGray MOSAIQ RADIATION ONCOLOGY Prescribed Technique Tangents MOSAIQ RADIATION ONCOLOGY Elapsed Days 1 MOSAIQ RADIATION ONCOLOGY Start Date 01/09/2025 MOSAIQ RADIATION ONCOLOGY Last Date 01/10/2025 MOSAIQ RADIATION ONCOLOGY Prescribed Number of Fractions 16 MOSAIQ RADIATION ONCOLOGY Treatment Site Left Breast MOS AIQ RADIATION ONCOLOGY Course Number 1 MOSAIQ RADIATION ONCOLOGY Prescribed Fractional Dose 267 cGray MOSAIQ RADIATION ONCOLOGY Prescribed Total Dose 4,272 cGray MOSAIQ RADIATION ONCOLOGY Actual Fractions Delivered 2 MOSAIQ RADIATION ONCOLOGY Actual Session Delivered Dose 267 cGray MOSAIQ RADIATION ONCOLOGY Actual Total Dose 534 cGray MOSAIQ RADIATION ONCOLOGY Prescribed Technique Tangents MOSAIQ RADIATION ONCOLOGY Elapsed Days 1 MOSAIQ RADIATION ONCOLOGY Start Date 01/09/2025 MOSAIQ RADIATION ONCOLOGY Last Date 01/10/2025 MOSAIQ RADIATION ONCOLOGY Prescribed Number of Fractions 16 MOSAIQ RADIATION ONCOLOGY 01/10/2025 9:00 AM EDT Physician Radiation Oncology MD RADIATION ONCOLO GY ORDERABLES Final Result MOSAIQ RADIATION ONCOLOGY * Rad Onc Msq Treatment Summary (01/09/2025 11:31 AM EDT) Treatment Site Right Breast MO SAIQ RADIATION ONCOLOGY Course Number 1 MOSAIQ RADIATION ONCOLOGY Prescribed Fractional Dose 267 cGray MOSAIQ RADIATION ONCOLOGY Prescribed Total Dose 4,272 cGray MOSAIQ RADIATION ONCOLOGY Actual Fractions Delivered 1 MOSAIQ RADIATION ONCOLOGY Actual Session Delivered Dose 267 cGray MOSAIQ RADIATION ONCOLOGY Actual Total Dose 267 cGray MOSAIQ RADIATION ONCOLOGY Prescribed Technique Tangents MOSAIQ RADIATION ONCOLOGY Elapsed Days 0 MOSAIQ RADIATION ONCOLOGY Start Date 01/09/2025 MOSAIQ RADIATION ONCOLOGY Last Date 01/09/2025 MOSAIQ RADIATION ONCOLOGY Prescribed Number of Fractions 16 MOSAIQ RADIATION ONCOLOGY Treatment Site Left Breast MOS AIQ RADIATION ONCOLOGY Course Number 1 MOSAIQ RADIATION ONCOLOGY Prescribed Fractional Dose 267 cGray MOSAIQ RADIATION ONCOLOGY Prescribed Total Dose 4,272 cGray MOSAIQ RADIATION ONCOLOGY Actual Fractions Delivered 1 MOSAIQ RADIATION ONCOLOGY Actual Session Delivered Dose 267 cGray MOSAIQ RADIATION ONCOLOGY Actual Total Dose 267 cGray MOSAIQ RADIATION ONCOLOGY Prescribed Technique Tangents MOSAIQ RADIATION ONCOLOGY Elapsed Days 0 MOSAIQ RADIATION ONCOLOGY Start Date 01/09/2025 MOSAIQ RADIATION ONCOLOGY Last Date 01/09/2025 MOSAIQ RADIATION ONCOLOGY Prescribed Number of Fractions 16 MOSAIQ RADIATION ONCOLOGY 01/09/2025 11:3 1 AM EDT Physician Radiation Oncology RADIATION ONCOLO GY ORDERABLES Final Result MOSAIQ RADIATION ONCOLOGY * Oncology genomic type sequencing, breast (12/16/2024 9:17 AM EDT) Only the most recent of2 resultswithin the time period is included. Tissue Historical Provider MD LAB MOLECULAR DIAGNOSTICS ORDERABLES Final Result * (ABNORMAL) MG Mammo Digital Diagnostic Clip Post MG Guide Right (Statistics) (09/05/2024 8:42 AM EDT) Anatomical Region Laterality Modality Breast Right Mammography 09/05/2024 9:22 AM EDT Addenda Addendum by Moses Basurto MD on 09/16/2024 12:24 PM EDT Addendum: The final pathology results from the procedure are now available; DATE: 09/05/24 LOCATION: Upper outer quadrant right breast STEREOTACTICALLY GUIDED FINAL PATHOLOGY RESULT: Final Diagnosis Breast, Right, 8 mm upper outer quadrant mass, core biopsy (clip): Invasive ductal carcinoma with mucinous features. ? Greatest length of carcinoma: 8mm Houston score: Grade 2 Glandular/tubular morphology: 3 Nuclear [...] Controls stain appropriately. ? Breast Carcinoma Biomarkers: Estrogen Receptor: POSITIVE (95% Positive nuclei, average intensity: strong) Internal controls appropriate Progesterone Receptor: POSITIVE (80% Positive nuclei, average intensity: strong) Internal controls appropriate HER2: EQUIVOCAL (2+) (3% of cells show strong complete membrane staining) CONCORDANCE: The final pathology results and imaging findings are concordant. The biopsy site marker is slightly inferiorly migrated. There is a residual target. ASSESSMENT: BI-RADS 6: KNOWN BIOPSY-PROVEN MALIGNANCY RECOMMENDATION(S): 1: Surgical excision recommended BILATERAL COMMUNICATION: The patient has known biopsy proven left breast cancer. The patient has a pending consultation with the breast surgery team. Addendum: BREAST DENSITY: B - There are scattered areas of fibroglandular density. BI-RADS CATEGORY: 6 - KNOWN BIOPSY-PROVEN MALIGNANCY RECOMMENDATION: Surgical biopsy of bilateral breasts is recommended. -------- ADDENDUM -------- Dictated By: Moses Basurto Dictated Date: 09/16/2024 12:17 ET Assigned Physician: Moses Basurto Reviewed and Electronically Signed By: Moses Basurto Signed Date: 09/16/2024 12:24 ET Workstation ID: [id number] Transcribed By: Self Edit Transcribed Date: 09/16/2024 12:17 ET Impressions 09/06/2024 2:37 PM EDT Stereotactic core biopsy of the focal asymmetry in the right upper outer breast. Pathology is pending. An addendum will be made when results become available. RECOMMENDATION: Pathology pending for the right breast. -------- FINAL REPORT -------- Dictated By: Marina May Dictated Date: 09/05/2024 09:22 ET Assigned Physician: Marina May Reviewed and Electronically Signed By: Marina May Signed Date: 09/06/2024 14:37 ET Workstation ID: [id number] Transcribed By: Self Edit Transcribed Date: 09/05/2024 09:27 ET Narrative 09/06/2024 2:37 PM EDT STEREOTACTIC BREAST CORE NEEDLE BIOPSY CLINICAL: 69 years old, Female, referred for stereotactic breast biopsy. COMPARISON: 08/14/2024, 01/12/2024, 07/03/2023 and 07/11/2023 PROCEDURE: Informed consent was obtained. Preprocedure time out was performed per routine. The patient was positioned upright, and preliminary digital tomographic/stereotactic imaging of the right breast confirms the presence of a focal asymmetry in the upper outer quadrant at posterior depth. A superior approach was used. The skin was prepped using sterile technique. Cutaneous and subcutaneous anesthesia was achieved using 1% Lidocaine buffered with bicarbonate. A standard 10-gauge core biopsy needle was advanced to the target, and satisfactory positioning was confirmed with pre- and post-fire imaging. A total of 6 vacuum assisted core biopsy specimens were obtained. Specimen radiograph reveals the presence of calcification. Specimens were sent for pathologic analysis, results pending. A barrel shaped postbiopsy clip was deployed to guillermina the biopsy site. Postprocedure mammographic images disclose the clip to be 7 mm inferior to the the targeted site. There is a residual 6 mm asymmetry at the biopsy site. Specimens were sent for pathologic analysis, results pending. Hemostasis was achieved with manual compression. Dermabond and sterile gauze were applied, and the patient was given post biopsy instructions. There were no immediate complications. The patient tolerated the procedure well and left the department in good condition. Result [facility] Cedric Friedman [employer] IMG BI PROCEDURES Edited Resul t - Final * Annual BMP Blood Test (09/02/2021) Pathologist [facility] Annual BMP Blood Test abstracted Result [facility] Final Result * (ABNORMAL) Hemoglobin A1c (09/02/2021) Pathologist [facility] Hemoglobin A1C 7.1(A) <=6.5 % Blood Venous blood specimen / Unknown Result [facility] LAB BLOOD ORDERABLES Marianela l Result * Lipid panel (06/21/2021) LDL/HDL Ratio 2 0 - 4 Triglycerides 66 0 - 150 mg/dL Cholesterol 188 0 - 200 mg/dL HDL 77 >=40 mg/dL LDL Cholesterol 98 0 - 150 mg/dL Blood Venous blood specimen / Unknown Result [facility] Provider LAB BLOOD ORDERABLES Marianela l Result * Urine Albumin Creatinine Ratio (03/31/2021) Urine Albumin Creatinine Ratio abstracted us Historical Provider HEALTH MAINTENANCE Final Result * Hepatitis C Screening (12/06/2017) Hepatitis C Screening abstracted us Historical Provider HEALTH MAINTENANCE Final Result from Last 3 Months or Most Recently Relevant to Health Maintenance Insurance [facility] Member Subscriber Plan / Payer (Ef fective 2021-Present) Name:Mary Miller Relation to Subscriber:Self Name:Mary Miller Payer ID:[id number] Group ID:[id number] Type:Not on file Address: [address] [phone]
--- OUTSIDE RECORDS SUMMARY | 2025-03-07 12:03 | XMS_ITS | Encounter Summary ---
Author Organization [facility] Address [address] [place] [address] Care Team Providers Care Punch Machine Operator Name Role Phone Unavailable Primary Care Provider Unavailabl e Reason for Visit * Reason Onset Date Comments Rash 03/03/2025 Encounter Details Date Type Department Care Team (Late st Contact Info) Description 03/03/2025 Telephone [facility] Hematology Oncology [address] [place] [phone] Juanis Ramirez [place] Social History Tobacco Use Types Packs/Day Years [...] as of this encounter Progress Notes * Carla Calix RN - 03/03/2025 1:56 PM EDT I called Brian back and relayed Dr. Santana's recommendation: Hold letrozole. FOV booked for 03/18 at 11:15 am. * Erasto Santana MD - 03/03/2025 12:40 PM EDT Hold letrozole, follow-up with me in 2 weeks * Juanis Ramirez MA - 03/03/2025 12:03 PM EDT Brian calling on behalf of his to inform that patient has started Letrozole on 02/19/2025 and isexperiencing an itchy rash all over her body that started on about 02/24/2025. Brian [phone] documented in this encounter Plan of Treatment Upcoming Encounters Date Type Department Care Team (Late st Contact Info) Description 03/11/2025 2:30 PM EDT Appointment [facility] Radiation Oncology [address] [place] [phone] Pierre Peoples MD [address] [place] [phone] 03/18/2025 11:15 AM EDT Office Visit [facility] Hematology Oncology [address] [place] [phone] rEasto Santana MD [address] [place] [phone] 04/10/2025 10:45 AM EDT Office Visit [facility] Hematology Oncology [address] [place] [phone] Erasto Santana MD [address] [place] [phone] 08/25/2025 10:00 AM EDT Office Visit General Surgery - [place] [address] [phone] Jalen Freguson MD [address] [place] [phone] documented as of this encounter Visit Diagnoses Not on filedocumented in this encounter
[2025-03-07 12:18] VITALS: BP 143/64; PULSE 58; RESP 16; TEMP 36.6; O2SAT 98; BMI 24.9
[2025-03-07 12:44] VITALS: BP 134/70; PULSE 64
== END 2025-03-07 12:55 | disposition home or self-care (01) ==
LOC: HO.HMCFM 11:26
PROVIDERS: PCP Nurse Practitioner Family; Visit Provider Nurse Practitioner Family
DX: I10 Essential (primary) hypertension (principal); E11.65 Type 2 diabetes mellitus with hyperglycemia; Z79.4 Long term (current) use of insulin; L29.9 Pruritus, unspecified; Z13.9 Encounter for screening, unspecified

== ENCOUNTER → 2025-03-07 11:25 | Outpatient (BNVA) | payer OTHER, SELFPAY | PROVIDERS: PCP Nurse Practitioner Family; Visit Provider Nurse Practitioner Family | DX: I10 Essential (primary) hypertension (principal); E11.65 Type 2 diabetes mellitus with hyperglycemia; L29.9 Pruritus, unspecified; Z79.4 Long term (current) use of insulin | CPT/HCPCS: 83036; 99212 ==

== ENCOUNTER 2025-04-14 10:15 | Outpatient (AMB) | payer OTHER, SELFPAY ==
--- OUTSIDE RECORDS SUMMARY | 2025-04-10 10:45 | XMS_ITS | Encounter Summary ---
Author Organization [employer] Address [address] [place] [address] Care Team Providers Care Side Piece Coverer Name Role Phone Unavailable Primary Care Provider Unavailabl e Reason for Visit * Reason Comments Follow-up Encounter Details Date Type Department Care Team ([facility] st Contact Info) Description 04/10/2025 10:45 AM EDT Office Visit [facility] Hematology Oncology [address] [place] [phone] Erasto Santana MD [address] [place] [phone] Infiltrating ductal carcinoma of breast, right (CMS/HCC V24, CMS/HCC V28) (Primary Dx); Infiltrating lobular carcinoma of breast, stage 1, left (CMS/HCC V24, CMS/HCC V28) Social History Tobacco Use Types Packs/Day Years Used Date Smoking Tobacco: Never Smokeless Tobacco: Never Alcohol Use Standard Drinks/Week Comments No 0 (1 standard drink = 0.6 oz pur e alcohol) Interpersonal Safety Answer Date Record ed Physical Abuse Unrecognized value 10/29/2024 Verbal Abuse Unrecognized value 10/29/2024 Comments No Sex and Gender Information [...] Sign Reading Time Taken Comments Blood Pressure 129/51 04/10/2025 10:40 AM EDT Pulse 57 04/10/2025 10:40 AM EDT Temperature 36.1 C (97 F) 04/10/2025 10:40 AM EDT Respiratory Rate - - Oxygen Saturation 98% 04/10/2025 10:40 AM EDT Inhaled Oxygen Concentration - - Weight 74.4 kg (164 lb) 04/10/2025 10:40 AM EDT Height - - Body Mass Index 24.94 02/24/2025 9:16 AM EDT documented in this encounter Progress Notes * Erasto Santana MD - 04/10/2025 10:45 AM EDT Diagnosis/treatment: #1 Right-sided stage I T1bN0 invasive ductal mucinous breast cancer, ER/OH- positive, 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 She underwent a lumpectomy and sentinel lymph node biopsy on 10/29/2024. She completed adjuvant right breast radiation. She started adjuvant letrozole in late 01/2025. We discontinued letrozole due to a generalized rash. She started adjuvant tamoxifen in early 03/2025. #2 Synchronous left-sided stage I T1bN0 invasive lobular breast cancer, ER/OH- positive, 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 She underwent a lumpectomy and sentinel lymph node biopsy on 10/29/2024. She completed adjuvant left breast radiation. She started adjuvant letrozole in late 01/2025. We discontinued letrozole due to a generalized rash. She started adjuvant tamoxifen in early 03/2025. Interval history: The patient is a 70-year-old female who underwent a screening mammogram on 07/03/2023 which showed adeveloping asymmetry in the posterior outer right breast. There was a developing asymmetry in the upper outer quadrant of the left breast. A bilateral diagnostic mammogram on 07/11/2023 showed that the asymmetries spread out with compression views bilaterally. A bilateral diagnostic mammogram on 01/12/2024 showed a persistent focal asymmetry in the upper outer quadrant of the right breast. There was a persistent focal asymmetry in the upper inner left breast. A bilateral breast ultrasound 01/12/2024 was unremarkable. Bilateral mammogram on 07/25/2024 showed increasing 0.8 cm focal asymmetry in theupper outer quadrant of the right breast. There was an increasing 0.7 cm focal asymmetry in the upper inner quadrant of the left breast. A bilateral breast ultrasound on 07/25/2024 showed a 0.7 x 0.5 x0.4 cm ill-defined mass in the left breast at 11:00, 13 cm from the nipple and an unremarkable right breast. She underwent an ultrasound-guided biopsy of the left breast lesion on 08/26/2024 and the pathology revealed invasive lobular carcinoma, ER-strongly positive (greater than 95%), OH-moderatelypositive (50%), HER2-negative (2+ by IHC; negative by FISH). She underwent a stereotactic biopsy ofthe right breast focal asymmetry on 09/13/2024 and the pathology showed invasive ductal carcinoma with mucinous features, ER-strongly positive (95%), OH-strongly positive (80%), HER2-negative (2+ of IHC; negative by FISH). She underwent bilateral lumpectomies and sentinel lymph node biopsies on 10/29/[address] Ferguson and the pathology from the right breast revealed a 1.0 cm grade 2 mucinous carcinoma. LVI was not present. 0 of 1 right sentinel nodes were involved with tumor. The pathology from the left breast revealed a 0.9 cm grade 2 invasive lobular carcinoma. LVI was not present. 0 of 1 left sentinel nodes wereinvolved with tumor. An Oncotype DX assay on the right breast tumor showed a low recurrence score, translating into a 3%risk of distant recurrence at 9 years. An Oncotype DX assay on the left breast tumor showed an intermediate recurrence score of 21, translating into a 7% risk of distant recurrence at 9 years. She completed bilateral adjuvant breast radiation. She underwent a AUDRA/BSO. She denies baseline hot flashes. She denies history of thrombosis. She denies a history of osteoarthritis or arthralgias. A DEXA scan on 10/08/2021 showed normal bone density.A DEXA scan on 02/19/2025 showed mild osteopenia with a T-score of -1.4 in the femur. She had difficulty tolerating adjuvant letrozole. She reported frequent hot flashes and night sweats. She developed a generalized pruritic rash, which resolved off letrozole. We discontinued adjuvant letrozole. She is tolerating adjuvant tamoxifen reasonably well. She reports tolerable occasional hot flashes and night sweats. She denies headaches or visual changes. She denies cough, hemoptysis, or dyspnea exertion. She denies nausea or abdominal pain. She denies unusual bone pain. She reports an intact appetite and stableweight. She underwent germline genetic testing with a multigene panel and tested negative for serious inherited mutations. Past medical history: GERD, hypertension, vitamin D deficiency, diabetes, coronary artery disease, asthma, depression. Current medications: Albuterol, amlodipine, vitamin C, vitamin D, vitamin B12, Flonase, insulin, losartan, metformin, metoprolol, omeprazole, Januvia. Allergies: Cephalexin, oxycodone, morphine, codeine, penicillin, atorvastatin. Family history: Her paternal grandfather was diagnosed with prostate cancer and at an uncertain age from that cancer. Her father was diagnosed with lung cancer and at age 78 from a cancer. Her 6 sisters and 4 brothers have no history of cancer. Her 1 daughter and 2 sons have no history of cancer. Social history: She is . She is 1 daughter and 2 sons. She is a never smoker. She denies alcohol use. Review of systems: The remainder of a 10 point review of systems was unremarkable. Physical examination: HEENT: Sclerae anicteric, normal oropharyngeal membrane. Neck: No lymphadenopathy. Lungs: Clear to auscultation. Heart: No murmurs. Breasts: Deferred. Abdomen: Soft, nontender, no organomegaly or masses. Extremities: No edema. Skin: No rash. Neurologic: Normal gait. Assessment/plan: The patient is a 70-year-old female who presented in 08/2024 with a right-sided stage I T1bN0 invasive ductal mucinous breast cancer, ER/OH-positive, HER2- negative (2+). She underwent a lumpectomy andsentinel lymph node biopsy on 10/29/2024. She presented in 08/2024 with a synchronous left-sided stage I T1bN0 invasive lobular breast cancer, ER/OH-positive, 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 She underwent a lumpectomy and sentinel lymph node biopsy on 10/29/2024. An Oncotype DX assay on the right breast tumor showed a low recurrence score and an Oncotype DX assay on the left breast tumor showed intermediate recurrence score and therefore adjuvant chemotherapyis not indicated. She completed bilateral adjuvant breast radiation. I recommended adjuvant hormonal therapy with aromatase inhibitor. I will discuss potential adverse effects, including hot flashes, mild hair thinning, arthralgias, vaginal dryness, and loss of bone density. She had difficulty tolerating adjuvant letrozole. She reported frequent hot flashes and night sweats. She developed a generalized pruritic rash, which resolved off letrozole. We discontinued adjuvant letrozole. We will trial tamoxifen. I discussed potential adverse effects, including hot flashes, retinal changes, early cataracts, muscle cramping, and thrombosis. She is tolerating adjuvant tamoxifen reasonably well. She reports tolerable occasional hot flashes and night sweats. She underwent germline genetic testing with a multigene panel and tested negative for serious inherited mutations. Visit summary: The patient is a 70-year-old female who presented in 08/2024 with a right-sized stage I invasive ductal breast cancer, ER/OH-positive, HER2-negative and a synchronous left-/stage I invasive lobular breast cancer ER/OH-positive, HER2- negative. She underwent bilateral lumpectomies. Oncotype Dx assay on both tumor showed no benefit of adjuvant chemotherapy. She completed adjuvant breast radiation. She started adjuvant letrozole developed generalized pruritic rash, which resolved off letrozole. We are trialing tamoxifen. The patient is tolerating tamoxifen well despite tolerable hot flashes and night sweats. This encounter is of moderate risk. The patient has a bilateral breast cancer, which is a life-threatening condition. She remains on adjuvant tamoxifen. documented in this encounter Plan of Treatment Upcoming Encounters Date Type Department Care Team (Late st Contact Info) Description 07/11/2025 11:45 AM EST Office Visit [facility] Hematology Oncology [address] [place] [phone] Erasto Santana MD [address] [place] [phone] 08/25/2025 10:00 AM EDT Office Visit General Surgery - [place] [address] [facility] [address] [place] [phone] Jalen Ferguson MD [facility] [address] [place] [phone] documented as of this encounter Visit Diagnoses Diagnosis Infiltrating ductal carcinoma of breast, right (CMS/HCC V24, CMS/HCC V28)- Primary Infiltrating lobular carcinoma of breast, stage 1, left (CMS/HCC V24, CMS/HCC V28) documented in this encounter
--- OUTSIDE RECORDS SUMMARY | 2025-04-11 10:59 | XMS_ITS | Encounter Summary ---
Author Organization [employer] Address [address] [place] [address] Care Team Providers Care Glass Etcher Helper Name Role Phone Unavailable Primary Care Provider Unavailabl e Reason for Visit * Reason Comments Follow-up Encounter Details Date Type Department Care Team (Latest Contact Info) Description 04/11/2025 10:59 AM EDT Hospital Encounter [facility] Radiation Oncology [address] [place] [phone] Abril Krishnamurthy NP [address] [place] [address] Infiltrating ductal carcinoma of breast, right (CMS/HCC [...] Sign Reading Time Taken Comments Blood Pressure 133/54 04/11/2025 11:03 AM EDT Pulse 58 04/11/2025 11:03 AM EDT Temperature 35.9 C (96.6 F) 04/11/2025 11:03 AM EDT Respiratory Rate 16 04/11/2025 11:03 AM EDT Oxygen Saturation 98% 04/11/2025 11:03 AM EDT Inhaled Oxygen Concentration - - Weight 74.4 kg (164 lb) 04/11/2025 11:03 AM EDT Height 172.7 cm (5' 8 ) 04/11/2025 11:03 AM EDT Body Mass Index 24.94 04/11/2025 11:03 AM EDT documented in this encounter Progress Notes * Abril Krishnamurthy NP - 04/11/2025 11:00 AM EDT [address] [phone] RADIATION ONCOLOGY FOLLOW-UP Staff Physician: Abril Krishnamurthy NP Requesting Physician: Jalen Ferguson MD Date of Service: 04/11/2025 Accompanied by: Spouse Diagnosis: No diagnosis found. Stage: Cancer Staging No matching staging information was found for the patient. Prior treatment: Radiation Therapy: Breast Treatment Period Technique Fraction Dose Fractions Total Dose Course 1 01/09/2025-02/05/2025 (days elapsed: 27) Left Breast 01/09/2025-01/30/2025 Tangents 267 / 267 cGy / 16 4,272 / 4,272 cGy Right Breast 01/09/2025-01/30/2025 Tangents 267 / 267 cGy / 16 4,272 / 4,272 cGy Left Breast Boost 01/31/2025-02/05/2025 KONG,LPO,DANISH 250 / 250 cGy 1,000 / 1,000 cGy Right Breast Boost 01/31/2025-02/05/2025 DANISH/RPO 250 / 250 cGy 1,000 / 1,000 cGy HPI: Mary Miller returns for follow-up evaluation after breast radiation. She had seen me on 02/12/2025due to her skin peeling under her breast, being itchy and uncomfortable. She reports she has been doing well. Her skin is doing much better. She is taking tamoxifen and is tolerating it well. Some occasional hot flashes. Mostly at night. She reports an occasional pain in the nipple of the right breast. She is using lotions on the skin still daily. Some days she feels tired. HPI ROS: Review of Systems Constitutional: Positive for fatigue. Gastrointestinal: Negative for nausea and vomiting. Endocrine: Positive for hot flashes. Neurological: Negative for headaches. Breast: Positive for breast skin changes and breast pain (occassional pain on the right nipple). Negative for nipple discharge. Medications: Current Outpatient Medications: albuterol HFA (PROAIR HFA ; PROVENTIL HFA ; VENTOLIN HFA) 90 mcg/actuation inhaler, 2 puffs every 4(four) hours if needed., Disp: , Rfl: amLODIPine (NORVASC) 10 mg tablet, Take by mouth 1 (one) time each day., Disp: , Rfl: ascorbic acid (VITAMIN C) 500 mg chewable tablet, , Disp: , Rfl: blood sugar diagnostic (FreeStyle Lite Strips) test strip, Use to test twice daily, Disp: , Rfl: cholecalciferol (VITAMIN D-3) 25 mcg (1,000 unit) capsule, Take 1 capsule (1,000 Units total) by mouth 1 (one) time each day., Disp: , Rfl: CYANOCOBALAMIN, VITAMIN B-12, ORAL, Place 500 mcg under the tongue 1 (one) time each day. B-12 Microlozenge 500 MCG SL Tab Take 1 tablet by mouth daily., Disp: , Rfl: fluticasone propionate (FLONASE) 50 mcg/actuation nasal spray, 1 spray 1 (one) time each day., Disp: , Rfl: FREESTYLE LANCETS MISC, Use to test blood sugar 2 times daily, Disp: , Rfl: insulin glargine (LANTUS) 100 unit/mL injection, Inject 25 Units under the skin 1 (one) time each day in the morning., Disp: , Rfl: letrozole (FEMARA) 2.5 mg tablet, Take 1 tablet (2.5 mg total) by mouth 1 (one) time each day Take with or without food., Disp: 90 tablet, Rfl: 3 losartan (COZAAR) 100 mg tablet, Take 1 tablet (100 mg total) by mouth 1 (one) time each day., Disp: , Rfl: metFORMIN XR (GLUCOPHAGE-XR) 500 mg 24 hr tablet, TAKE 2 TABLETS BY MOUTH TWICE A DAY, Disp: , Rfl: metoprolol tartrate (LOPRESSOR) 25 mg tablet, Take 1 tablet (25 mg total) by mouth 2 (two) times a day., Disp: , Rfl: omeprazole (PriLOSEC) [address] capsule, Take 1 capsule (20 mg total) by mouth 1 (one) time each day. Do not crush or chew., Disp: , Rfl: rivaroxaban (XARELTO) 20 mg tablet, Take 1 tablet (20 mg total) by mouth 1 (one) time each day withdinner for 1 dose. Take with food. Re-start med 2 days after to surgery, Disp: 1 each, Rfl: 0 SITagliptin phosphate (JANUVIA) 50 mg tablet, Take 1 tablet (50 mg total) by mouth 1 (one) time each day. Stop 3 days prior to sx, Disp: , Rfl: tamoxifen (NOLVADEX) 20 mg chemo tablet, Take 1 tablet (20 mg total) by mouth 1 (one) time each dayTake with water or any other nonalcoholic drink with or without food at around the same time(s) every day., Disp: 30 each, Rfl: 11 traMADoL (ULTRAM) 50 mg tablet, Take 1 tablet (50 mg total) by mouth every 8 (eight) hours if needed for severe pain for up to 5 doses. Max Daily Amount: 150 mg, Disp: 5 tablet, Rfl: 0 Imported vital signs, weight Visit Vitals OB Status Postmenopausal Smoking Status Never No data recorded Physical Exam: Physical Exam Constitutional: General: She is not in acute distress. HENT: Head: Normocephalic. Pulmonary: Effort: Pulmonary effort is normal. No respiratory distress. Chest: Comments: Bilateral mild to moderate tanning. Skin dry and intact. Neurological: Mental Status: She is alert and oriented to person, place, and time. Mental status is at baseline. Psychiatric: Mood and Affect: Mood normal. Behavior: Behavior normal. Thought Content: Thought content normal. Judgment: Judgment normal. Impression: Starting Tamoxifen. If any issues arise to contact Dr. Santana. Recommended for at least 5 years, Mild tanning to the skin. Can moisturize as needed. Use SPF 30+ if exposed in the sun. Resume mammograms annually. Or sooner if clinically indicated. Will have a breast exam every six months with clinician. Encouraged to do self-breast exams and if noted any changes to report to providers promptly. Eat a heart healthy diet and exercise with goal of 30 minutes per day five times per week. If cancer was to return to treatment site, we would likely not do radiation again. The treatment would likely include a mastectomy. Follow-up with Dr. Santana on 05/13/[address] Ferguson on 08/25/2025. Plan: May follow-up as needed with any questions or concerns. Electronically signed by Abril Krishnamurthy NP documented in this encounter Plan of Treatment Upcoming Encounters Date Type Department Care Team (Late st Contact Info) Description 07/11/2025 11:45 AM EST Office Visit [facility] Hematology Oncology [address] [place] [address] Erasto Santana MD [address] [place] [address] 08/25/2025 10:00 AM EDT Office Visit General Surgery [facility] [address] [facility] [address] [place] [address] Jalen Ferguson MD [address] [place] [address] documented as of this encounter Visit Diagnoses Diagnosis Infiltrating ductal carcinoma of breast, right (CMS/HCC V24, CMS/HCC V28)- Primary Infiltrating lobular carcinoma of breast, stage 1, left (CMS/HCC V24, CMS/HCC V28) documented in this encounter
--- NOTE | 2025-04-14 10:21 | MHC.OFFVIS ---
Vital Signs 04/14/25 10:23 Height 5 ft 8 in Weight 164 lb BMI 24.9 BP 140/64 H Blood Pressure Location Rt brachial Position Sitting Pulse 60 Pulse Source Pulse Oximeter Pulse Oximetry (%) 98 Oxygen Delivery Method Room Air Intake Visit Reasons: 6m Intake Note: ESTABLISHED PATIENT for GERD mgmt Chief Complaint; Pt denies any new GI changes or concerns since last visit. Confirms that she is still doing well with their PPI. Liquefaction And Regasification Helper Required: Yes Liquefaction And Regasification Helper Services: Liquefaction And Regasification Helper Present Liquefaction And Regasification Helper Name: Donny [id number] Information Interpreted: clinical only Accompanied by: Spouse Allergies atorvastatin (Lipitor) Allergy (Unknown, Verified 04/14/25 10:21) unknown cephalexin (Keflex) Allergy (Unknown, Verified 04/14/25 10:21) unknown codeine Allergy (Unknown, Verified 04/14/25 10:21) unknown letrozole Allergy (Unknown, Verified 04/14/25 10:31) Itching morphine Allergy (Unknown, Verified 04/14/25 10:21) unknown oxycodone (Percocet) Allergy (Unknown, Verified 04/14/25 10:21) unknown Penicillins Allergy (Unknown, Verified 04/14/25 10:21) Unknown HPI HPI 6m: Details: LAST VISIT: GERD (gastroesophageal reflux disease) Status post colonoscopy Plan Continue pantoprazole daily. Patient was encouraged to avoid dietary triggers late last night he. Staying upright for minimum 3 hours after meals discussed with patient. Fundic gland gastric polyp without dysplasia with mild inflammation, no H pylori. Patient will need to be he endoscopy it was a 2 years for complete removal of the polyp. Patient will repeat colonoscopy in 10 years as sigmoid polyp was hyperplastic, sooner if clinically necessary. Patient will return in 6 months to follow-up on GERD. She is agreeable to current plan of care and verbalizes understanding of instructions. She was given the opportunity to ask questions and all questions answered. TODAY'S VISIT Patient is here today for follow-up. Patient is taking omeprazole daily and reports that her symptoms of acid reflux are suppressed for the most part. Patient occasionally you will have nausea depending on what she eats. For the most part she is doing well. Denies dyspepsia, dysphagia or odynophagia. Denies melena, hematochezia, unintentional weight loss or ribbon like stools. Patient reports that she is moving her bowels without any issues. Patient denies any GI concerning symptoms. ? 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 Family/Other Diabetes Mother Mental health disorder Social History Household Members: Spouse Housing: Apartment Are you a primary mall plant caretaker to a significant other at home: No Do you presently have visiting nurse or other home services: No Alcohol intake: current Alcohol intake frequency: does not drink Patient Tobacco Use Status: Never used Tobacco e-Cigarette/Vaping Use: Never Used Second Hand Smoke Exposure: No service: No Current occupational status: disabled Cognitive needs: No Hearing needs: No Vision needs: No Review of Systems Const Denies weight gain and Denies weight loss ENT Reports no additional complaints, Denies dysphagia and Denies odynophagia Card Reports no additional complaints Resp Reports no additional complaints GI Denies abdominal pain, Denies belching, Denies melena, Denies bloating, Denies change in bowel habits, Denies dysphagia, Denies excessive flatus, Denies dyspepsia, Denies heartburn, Denies diarrhea, Denies loose stools, Denies nausea, Denies odynophagia and Denies vomiting Reports no additional complaints Musc Reports no additional complaints Neuro Reports no additional complaints Psych Reports no additional complaints Endo Reports no additional complaints Physical Exam Vital Signs: Last Vital Signs Pulse 60 04/14/25 10:23 BP 140/64 H 04/14/25 10:23 Pulse Ox 98 04/14/25 10:23 Oxygen Delivery Method Room Air 04/14/25 10:23 BMI result Body Mass Index 24.9 Const General: healthy appearing, no acute distress and well developed Nutritional Appearance: well nourished Orientation/consciousness: patient oriented x3 Resp Effort & Inspection: normal respiratory effort, able to speak in complete sentences, no tracheal deviation and symmetric chest movement Auscultation: clear to auscultation bilaterally Cardio Rate: regular rate GI Inspection: Yes normal to inspection and No distended Palpation (GI): Soft to palpation, not firm, nontender and No hepatosplenomegaly present Auscultation: normal bowel sounds General: Yes no CVA tenderness Back/Spine/Pelvis Back: no CVA tenderness Skin General skin exam: elasticity normal, turgor normal and dry skin Neuro General: patient oriented x3 Psych Appearance: grossly normal Mental Status: mental status grossly normal Assessment & Plan Assessment & Plan (1) GERD (gastroesophageal reflux disease): Code(s): K21.9 - Gastro-esophageal reflux disease without esophagitis Category: Medical Qualifiers: Esophagitis presence: esophagitis presence not specified Qualified Code(s): K21.9 - Gastro-esophageal reflux disease without esophagitis Plan Continue omeprazole daily. Avoid dietary triggers and late night snacking. Patient will return in 6 months and will be sent for upper endoscopy to re-evaluate status post gastric polypectomy. Patient is agreeable to this plan and verbalizes understanding of instructions. She was given the opportunity to ask questions and all questions answered. Thank you for allowing me to participate in her care Coding Level of Care Code Est Pt Level 3 (25197) Diagnoses Gastroesophageal reflux disease, unspecified whether esophagitis present K21.9 Esophagitis presence: esophagitis presence not specified Time Spent (min) 25 Comment 15 minutes spent with patient and additional 10 minutes spent reviewing her records
[2025-04-14 10:23] VITALS: BP 140/64; PULSE 60; O2SAT 98; BMI 24.9
--- OUTSIDE RECORDS SUMMARY | 2025-04-14 12:20 | XMS_ITS ---
Author Organization [facility] Address [address] [place] [address] Phone Care Team Providers Care Renewable Energy Trader Name Role Phone Unavailable Primary Care Provider [...] weeks Allergic rhinitis 12/02/2016 Asthma 03/09/2016 Old ID (myocardial infarction) 03/09/2016 Overview (06/05/2024): NON STEMI 06/28/14 Echo normal / stress test 08/18/14 Follows with [facility] Type 2 diabetes mellitus wit h cataract [facility] 03/09/2016 Overview (06/05/2024): Dx'd in 1996; Endo @ [facility] Venous insufficiency of both lower extremities 0 03/09/2016 Vitamin D deficiency 03/09/2016 Depression 12/01/2015 Essential hypertension 12/01/2015 Gastroesophageal reflux disease without esophagi tis 12/01/2015 Current Treatment and Therapy Plans No current plan information found. Past Treatment and Therapy Plans No past plan information found. Current Radiation Episodes * Radiation Therapy: BreastOverview* First Treatment Date Latest Treatment Date Treatment Site Technique Goal Episode Provider 01/09/2025 02/05/2025 Breast Curative Cynthia Cuba MD * Linked Problems Treatment Courses* Course 1 01/09/2025 - 02/05/2025 Treatment Sites Treatment Period Fraction Dose Fractions Total Dose Left Breast Boost 01/31/2025 - 02/05/2025 250 / 250 cGy 4 / 4 1,000 / 1,000 cGy Right Breast Boost 01/31/2025 - 02/05/2025 250 / 250 cGy 4 / 4 1,000 / 1,000 cGy Left Breast 01/09/2025 - 01/30/2025 267 / 267 cGy 4,272 / 4,272 cGy Right Breast 01/09/2025 - 01/30/2025 267 / 267 cGy 4,272 / 4,272 cGy
--- OUTSIDE RECORDS SUMMARY | 2025-04-14 12:21 | XMS_ITS | Encounter Summary ---
Author Organization [employer] Address [address] [facility] [address] [place] [address] Care Team Providers Care Export Freight Clerk Name Role Phone Unavailable Primary Care Provider Unavailabl e Encounter Details Date Type Department Care Team (Latest Contact Info) Description 04/29/2019 Abstract [facility] CONVERSIONS Dental, Provider, DDS Social History Tobacco [...]
--- OUTSIDE RECORDS SUMMARY | 2025-04-14 12:21 | XMS_ITS | Encounter Summary ---
Author Organization [employer] Address [address] [facility] [address] [place] [address] Care Team Providers Care Maitre D' Name Role Phone Unavailable Primary Care Provider Unavailabl e Encounter Details Date Type Department Care Team (Latest Contact Info) Description 06/26/2018 Abstract [facility] CONVERSIONS Dental, Provider, DDS Social [...]
--- OUTSIDE RECORDS SUMMARY | 2025-04-14 12:21 | XMS_ITS | Clinical Summary ---
Author Organization [employer] Address [address] [facility] [address] [place] [address] Care Team Providers Care Automobile Body Repair Chief Name Role Phone Unavailable Primary Care Provider [...] of Phone Billing Address Personal/Family Self [address]
--- OUTSIDE RECORDS SUMMARY | 2025-04-14 12:21 | XMS_ITS | Clinical Summary ---
Author Organization [facility] Address [address] [place] [address] Phone Care Team Providers Care Lead Software Development Engineer Name Role Phone Unavailable Primary Care Provider [...] 90 tablet 3 5 02/13/20 26 Active tamoxifen (NOLVADEX) 20 mg chemo tablet Take 1 tablet (20 mg total) by mouth 1 (one) time each day Take with water or any other nonalcoholic drink with or without food at around the same time(s) every day. 30 each 11 5 03/20/20 26 Active Active Problems Problem Noted Date Diagnosed Date Infiltrating ductal carcinom a of breast, right ([facility] V24, [facility] V28) 09/18/2024 Infiltrating lobular carcino ma of breast, stage 1, left ([facility] V24, [facility] V28) 09/18/2024 Abnormal iron saturation 06/05/2024 Low [...] weeks Allergic rhinitis 12/02/2016 Asthma 03/09/2016 Old PA (myocardial infarction) 03/09/2016 Overview (06/05/2024): NON STEMI 06/28/14 Echo normal / stress test 08/18/14 [address]s with [facility]ology Type 2 diabetes mellitus wit h cataract ([facility] V24, [facility] V28) 03/09/2016 Overview (06/05/2024): Dx'd in 1996; Endo @ [facility] Venous insufficiency of both lower extremities 0 03/09/2016 Vitamin D deficiency 03/09/2016 Depression 12/01/2015 Essential hypertension 12/01/2015 Gastroesophageal reflux disease without esophagi tis 12/01/2015 Encounters Date Type Department Care Team Description 04/11/2025 10:59 AM EDT Hospital Encounter [facility] Radiation Oncology [address] [place] [address] Krishnamurthy, Abril Giacomo, BROADCAST SUPERVISOR Infiltrating ductal carcinoma of breast, right (CMS/HCC V24, CMS/HCC V28) (Primary Dx); Infiltrating lobular carcinoma of breast, stage 1, left (CMS/HCC V24, CMS/HCC V28) 04/10/2025 10:45 AM EDT Office Visit [facility] Hematology Oncology [address] [place] [phone] Erasto Santana MD Infiltrating ductal carcinoma of breast, right (CMS/HCC V24, CMS/HCC V28) (Primary Dx); Infiltrating lobular carcinoma of breast, stage 1, left (CMS/HCC V24, CMS/HCC V28) 03/20/2025 Telephone [facility] Hematology Oncology [address] [place] [phone] Erasto Santana MD 03/18/2025 11:15 AM EDT Office Visit [facility] Hematology Oncology [address] [place] [phone] Erasto Santana MD Infiltrating ductal carcinoma of breast, right ([facility]/HCC V24, CMS/HCC V28) (Primary Dx); Infiltrating lobular carcinoma of breast, stage 1, left ([facility]/HCC V24, CMS/HCC V28) 03/03/2025 Telephone [facility] Hematology Oncology [address] [place] [phone] Juanis Ramirez [place] 02/24/2025 9:15 AM EDT Office Visit General Surgery [facility] [place] [address] [phone] Jalen Ferguson MD History of partial mastectomy of both breasts (Primary Dx); Infiltrating lobular carcinoma of breast, stage 1, left (CMS/HCC V24, CMS/HCC V28); Infiltrating ductal carcinoma of breast, right ([facility]/HCC V24, CMS/HCC V28) 02/19/2025 9:20 AM EDT - 02/19/2025 11:59 PM EDT Hospital Encounter [facility] Bone Density [address] [place] [phone] Osteoporosis, unspecified osteoporosis type, unspecified pathological fracture presence; Encounter for osteoporosis screening in asymptomatic postmenopausal patient; Osteopenia after menopause Discharge Disposition: Home or Self Care 02/12/2025 11:06 AM EDT - 02/12/2025 11:59 PM EDT Hospital Encounter [facility] Radiation [facility]cology [address] [place] [phone] Abril Krishnamurthy NP Infiltrating lobular carcinoma of breast, stage 1, left (CMS/HCC V24, CMS/HCC V28) (Primary Dx) Discharge Disposition: Home or Self Care 02/12/2025 10:30 AM EDT Office Visit [facility] Hematology Oncology [address] [place] [phone] Erasto Santana MD Infiltrating ductal carcinoma of breast, right (CMS/HCC V24, CMS/HCC V28) (Primary Dx); Infiltrating lobular carcinoma of breast, stage 1, left (CMS/HCC V24, CMS/HCC V28) 02/05/2025 9:10 AM EDT - 02/05/2025 11:59 PM EDT Hospital Encounter [facility] Radiation [facility] [address] [place] [phone] Abril Krishnamurthy NP Discharge Disposition: Home or Self Care 02/05/2025 8:47 AM EDT - 02/05/2025 11:59 PM EDT Hospital Encounter [facility] Radiation [facility]cology [address] [place] [phone] Discharge Disposition: Home or Self Care 02/04/2025 8:51 AM EDT - 02/04/2025 11:59 PM EDT Hospital Encounter [facility] Radiation [facility]cology [address] [place] [phone] Discharge Disposition: Home or Self Care 02/03/2025 8:54 AM EDT - 02/03/2025 11:59 PM EDT Hospital Encounter [facility] Radiation [facility] [address] [place] [phone] Discharge Disposition: Home or Self Care 01/31/2025 10:33 AM EDT - 01/31/2025 11:59 PM EDT Hospital Encounter [facility] Radiation [facility]cology [address] [place] [phone] Pierre Peoples MD Infiltrating ductal carcinoma of breast, right (CMS/HCC V24, CMS/HCC V28) (Primary Dx) Discharge Disposition: Home or Self Care 01/31/2025 10:30 AM EDT - 01/31/2025 11:59 PM EDT Hospital Encounter [facility] Radiation Oncology [address] [place] [phone] Pierre Peoples MD Discharge Disposition: Home or Self Care 01/31/2025 9:41 AM EDT - 01/31/2025 11:59 PM EDT Hospital Encounter [facility] Radiation [facility] [address] [place] [phone] Discharge Disposition: Home or Self Care 01/30/2025 8:47 AM EDT - 01/30/2025 11:59 PM EDT Hospital Encounter [facility] Radiation [facility]cology [address] [place] [phone] Discharge Disposition: Home or Self Care 01/29/2025 8:43 AM EDT - 01/29/2025 11:59 PM EDT Hospital Encounter [facility] Radiation [facility] [address] [place] [phone] Discharge Disposition: Home or Self Care 01/29/2025 7:21 AM EDT - 01/29/2025 11:59 PM EDT Hospital Encounter [facility] Radiation Oncology [address] [place] [phone] Discharge Disposition: Home or Self Care 01/28/2025 8:57 AM EDT - 01/28/2025 11:59 PM EDT Hospital Encounter [facility] Radiation [facility] [address] [place] [phone] Discharge Disposition: Home or Self Care 01/27/2025 9:05 AM EDT - 01/27/2025 11:59 PM EDT Hospital Encounter [facility] Radiation [facility]cology [address] [place] [phone] Pierre Peoples MD Infiltrating ductal carcinoma of breast, right (CMS/HCC V24, CMS/HCC V28) Discharge Disposition: Home or Self Care 01/27/2025 8:45 AM EDT - 01/27/2025 11:59 PM EDT Hospital Encounter [facility] Radiation [facility] [address] [place] [phone] Discharge Disposition: Home or Self Care 01/24/2025 9:02 AM EDT - 01/24/2025 11:59 PM EDT Hospital Encounter [facility]iation [facility] [address] [place] [phone] Cynthia Cuba MD Infiltrating ductal carcinoma of breast, right (CMS/HCC V24, CMS/HCC V28) (Primary Dx) Discharge Disposition: Home or Self Care 01/24/2025 8:47 AM EDT - 01/24/2025 11:59 PM EDT Hospital Encounter [facility] Radiation [facility]cology [address] [place] [phone] Discharge Disposition: Home or Self Care 01/23/2025 8:40 AM EDT - 01/23/2025 11:59 PM EDT Hospital Encounter [facility]iation [facility] [address] [place] [phone] Discharge Disposition: Home or Self Care 01/22/2025 8:52 AM EDT - 01/22/2025 11:59 PM EDT Hospital Encounter [facility]iation [facility] [address] [place] [phone] Discharge Disposition: Home or Self Care 01/21/2025 8:47 AM EDT - 01/21/2025 11:59 PM EDT Hospital Encounter [facility]iation [facility] [address] [place] [phone] Discharge Disposition: Home or Self Care 01/20/2025 8:35 AM EDT - 01/20/2025 11:59 PM EDT Hospital Encounter [facility]iation [facility] [address] [place] [phone] Discharge Disposition: Home or Self Care 01/20/2025 [facility] 175 [facility] [address] [phone] Hari Baer MD 01/17/2025 9:01 AM EDT - 01/17/2025 11:59 PM EDT Hospital Encounter [facility] [address] [place] [phone] Cynthia Cuba MD Infiltrating ductal carcinoma of breast, right (CMS/HCC V24, CMS/HCC V28) (Primary Dx) Discharge Disposition: Home or Self Care 01/17/2025 8:47 AM EDT - 01/17/2025 11:59 PM EDT Hospital Encounter [facility] [address] [place] [phone] Discharge Disposition: Home or Self Care 01/16/2025 8:37 AM EDT - 01/16/2025 11:59 PM EDT Hospital Encounter [facility] [address] [place] [phone] Discharge Disposition: Home or Self Care 01/15/2025 8:48 AM EDT - 01/15/2025 11:59 PM EDT Hospital Encounter [facility] [address] [place] [phone] Discharge Disposition: Home or Self Care 01/14/2025 8:44 AM EDT - 01/14/2025 11:59 PM EDT Hospital Encounter [facility] [address] [place] [phone] Discharge Disposition: Home or Self Care 01/13/2025 8:39 AM EDT - 01/13/2025 11:59 PM EDT Hospital Encounter [facility] [address] [place] [phone] Discharge Disposition: Home or Self Care from Last 3 Months Immunizations Immunization Administration Dates Next Due Influenza Quadravalent, MDCK , 0.5ml, preservative free (Flucelvax) 6mo and older 06/11/2020,04/25/2019 Influenza Quadravalent, MDCK , 0.5ml, with preservative (Flucelvax) 6mo and older 03/21/2018,02/21/2017 Influenza trivalent, 0.5mL (Fluad) 65yo and olde r 04/05/2021 Influenza trivalent, 0.5mL, preservative free (Fluarix; FluLaval; Fluzone) ages 6mo and older (Afluria) 3 years and older 03/18/2016 [employer] SARS-CoV-2 COVID -19, vector-nr, rS-Ad26, preservative free 09/22/2020 [employer] SARS-CoV-2 COVID-19, mRNA, LNP-S, preservative free 07/06/2021 [...] phlebectomy COLONOSCOPY 12/12/2006 PROCEDURE: HISTORICAL COLONOSCOPY; COMMENT: [email or web address]; normal screening exam, not difficult. COLONOSCOPY W/ POLYPECTOMY 12/12/2016 PROCEDURE: DE COLSC FLX W/RMVL OF TUMOR POLYP LESION [...] a Exertional asthma 12/01/2015 DX:Exertional asthma Old PA (myocardial infarction) 03/09/2016 D X:Old PA (myocardial infarction); COMMENT: NON STEMI 06/28/14 / stress test 08/18/14 Venous insufficiency of both lower extremities 03/09/2016 DX:Venous insufficiency of b oth lower extremities; COMMENT: EVLT 2014/ Dr Mohan Benedict Type 2 diabetes mellitus wit h cataract ([facility]/HCC V24, [facility]/HCC V28) 03/09/2016 DX:Type 2 diabetes mellitus with cataract (HCC); COMMENT: OU Varicose veins 03/09/2016 DX:Varicose vein s Atrial fibrillation ([facility] V24, [facility] V28) 03/09/2016 DX:Atrial fibrillation ([facility]) 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 Vitamin D deficiency 03/09/2016 DX:Vitamin D deficiency Asthma 03/09/2016 DX:Asthma Allergic rhinitis 12/02/2016 DX:Allergic rh initis Enlarged parotid gland 10/23/2018 DX:Enlarg ed parotid gland Low ferritin DX:Low ferritin Abnormal iron saturation DX:Abno rmal iron saturation Irregular heart beat A fib Cancer ([facility] V24, [facility] V28) breast Family History Medical History Relation [...] Mass Index 24.94 04/11/2025 11:03 AM EDT Plan of Treatment Upcoming Encounters Date Type Department Care Team (Late st Contact Info) Description 07/11/2025 11:45 AM EST Office Visit [facility] Hematology Oncology [address] [place] [phone] Erasto Santana MD [address] [place] [phone] 08/25/2025 10:00 AM EDT Office Visit General Surgery - [place] 175 [facility] [address] [place] [phone] Jalen Ferguson MD [address] [place] [phone] Health Maintenance Due Date Last Done Comments Diabetes: Annual Foot Exam 01/18/1966 Diabetes: Annual Retina Eye Exam 01/18/1966 Zoster Vaccines (1 of 2) 01/18/1975 RSV Immunization Adult Patients (1 - Risk 50-74 years 1-dose series) 01/18/2006 Pneumococcal Vaccine: 50+ Years (3 of 3 - PCV20 or PCV21) 09/02/2021 07/08/2021, 03/18/2015 Colorectal [...] this topic Medical Devices Implanted Type Area Podiatric Medicine Professor Device Identifier Shelf Expiration Date Model / Serial / Lot Marker Brst Biopsy Site Hydromark - [id number] Implanted:Qty: 1 on 09/05/2024 by Marina May MD at [facility] Breast Implants Right: Breast [employer] [id number] 12/31/2026 4010-05-1 0-T1 / / [id number] Hemostat Flour Collgn 1gm Avitene - Sna - [id number] Implanted:Qty: 1 on 10/29/2024 by Jalen Ferguson MD at [facility] Hemostasis Left: Breast CR BARD - DAVOL DIV [id number] 06/15/2027 [id number] / NA / [id number] Hemostat Flour Collgn 1gm Avitene - Sna - [id number] Implanted:Qty: 1 on 10/29/2024 by Jalen Ferguson MD at [facility] Hemostasis Right: Breast CR BARD - DAVOL DIV [id number] 06/15/2027 [id number] / NA / [id number] Marker Hydromark 15g Butterfly T4 Ti - [id number] - [id number] Implanted:Qty: 1 on 08/26/2024 by Moses Basurto MD at [facility] Imaging Implants Left: Breast DEVICOR MED PROD MAMMOTOME [id number] 04/30/2027 4010-02-1 5-T4 / [id number] / [id number] D Marker 18ga Magseed 7cm - [id number] - [id number] Implanted:Qty: 2 on 09/27/2024 by Moses Basurto MD at [facility] Imaging Implants N/A: Breast [employer] [id number] 12/16/2025 [id number] / [id number] / [id number] Description:BILATERAL Procedures Procedure Name Priority Date/Time Associated [...] TREATMENT SUMMARY Routine 01/13/2025 9:01 AM EDT MG MAMMO DIGITAL DIAGNOSTIC POST [...] probability of hip fracture of 0.7%. Code 38230 -------- FINAL REPORT -------- Dictated By: Donnell Gant Dictated Date: 02/19/2025 09:51 ET Assigned Physician: Donnell Gant Reviewed and Electronically Signed By: Donnell Gant Signed Date: 02/19/2025 09:52 ET Workstation ID: [id number] Transcribed By: Self Edit Transcribed Date: 02/19/2025 [...] density of the femurs bilaterally is 1.011 gm/bw8uqdja is 100% of that of young normals [...] probability of hip fracture of 0.7%. Code 41636 -------- FINAL REPORT -------- Dictated By: Donnell Gant Dictated Date: 02/19/2025 09:51 ET Assigned Physician: Donnell Gant Reviewed and Electronically Signed By: Donnell Gant Signed Date: 02/19/2025 09:52 ET Workstation ID: [id number] Transcribed By: Self Edit Transcribed Date: 02/19/2025 09:51 ET Iris Olguin MD IMG DXA PROCEDURES Final [...] 1,000 cGray MOSAIQ RADIATION ONCOLOGY Prescribed Technique SLOVAK/RPO MOSAIQ RADIATION ONCOLOGY Elapsed Days 5 MOSAIQ [...] 1,000 cGray MOSAIQ RADIATION ONCOLOGY Prescribed Technique KONG,LPO,SLOVAK MOSAIQ RADIATION ONCOLOGY Elapsed Days 5 MOSAIQ RADIATION ONCOLOGY Start Date 01/31/2025 MOSAIQ RADIATION ONCOLOGY Last Date 02/05/2025 MOSAIQ RADIATION ONCOLOGY Prescribed Number of Fractions 4 MOSAIQ RADIATION ONCOLOGY 02/05/2025 9:10 AM EDT us Physician Radiation Oncology RADIATION ONCOLO GY ORDERABLES [...] 750 cGray MOSAIQ RADIATION ONCOLOGY Prescribed Technique SLOVAK/RPO MOSAIQ RADIATION ONCOLOGY Elapsed Days 4 MOSAIQ [...] 750 cGray MOSAIQ RADIATION ONCOLOGY Prescribed Technique KONG,LPO,SLOVAK MOSAIQ RADIATION ONCOLOGY Elapsed Days 4 MOSAIQ RADIATION ONCOLOGY Start Date 01/31/2025 MOSAIQ RADIATION ONCOLOGY Last Date 02/04/2025 MOSAIQ RADIATION ONCOLOGY Prescribed Number of Fractions 4 MOSAIQ RADIATION ONCOLOGY 02/04/2025 9:05 AM EDT us Physician Radiation Oncology RADIATION ONCOLO GY ORDERABLES [...] 500 cGray MOSAIQ RADIATION ONCOLOGY Prescribed Technique SLOVAK/RPO MOSAIQ RADIATION ONCOLOGY Elapsed Days 3 MOSAIQ [...] 500 cGray MOSAIQ RADIATION ONCOLOGY Prescribed Technique KONG,LPO,SLOVAK MOSAIQ RADIATION ONCOLOGY Elapsed Days 3 MOSAIQ RADIATION ONCOLOGY Start Date 01/31/2025 MOSAIQ RADIATION ONCOLOGY Last Date 02/03/2025 MOSAIQ RADIATION ONCOLOGY Prescribed Number of Fractions 4 MOSAIQ RADIATION ONCOLOGY 02/03/2025 9:13 AM EDT Physician Radiation Oncology RADIATION ONCOLO [...] 250 cGray MOSAIQ RADIATION ONCOLOGY Prescribed Technique SLOVAK/RPO MOSAIQ RADIATION ONCOLOGY Elapsed Days 0 MOSAIQ [...] 250 cGray MOSAIQ RADIATION ONCOLOGY Prescribed Technique KONG,LPO,SLOVAK MOSAIQ RADIATION ONCOLOGY Elapsed Days 0 MOSAIQ [...] 9:09 AM EDT Physician Radiation Oncology RADIATION ONCOLO [...] 9:05 AM EDT Physician Radiation Oncology RADIATION ONCANAHY [...] MOSAIQ RADIATION ONCOLOGY 01/28/2025 9:07 AM EDT us Physician Radiation Oncology RADIATION [...] 01/24/2025 9:02 AM EDT Physician Radiation Oncology MD RADIATION [...] 01/23/2025 9:04 AM EDT Physician Radiation Oncology RADIATION ONCANAHY [...] 9:11 AM EDT Physician Radiation Oncology RADIATION ONCOLO [...] MOSAIQ RADIATION ONCOLOGY 01/21/2025 9:04 AM EDT us Physician Radiation Oncology RADIATION ONCOLO GY ORDERABLES [...] 01/20/2025 9:01 AM EDT Physician Radiation Oncology RADIATION ONCANAHY [...] MOSAIQ RADIATION ONCOLOGY 01/17/2025 9:01 AM EDT Physician Radiation Oncology RADIATION ONCANAHY [...] 01/16/2025 8:59 AM EDT Physician Radiation Oncology MD RADIATION [...] 01/15/2025 9:07 AM EDT Physician Radiation Oncology RADIATION [...] 9:16 AM EDT Physician Radiation Oncology RADIATION ONCANAHY [...] MOSAIQ RADIATION ONCOLOGY 01/13/2025 9:01 AM EDT Physician Radiation Oncology RADIATION ONCOLO GY ORDERABLES Final Result MOSAIQ RADIATION ONCOLOGY * (ABNORMAL) MG Mammo Digital Diagnostic Clip [...] features. ? Greatest length of carcinoma: 8mm Waverly score: Grade 2 Glandular/tubular morphology: 3 Nuclear [...] Signed Date: 09/16/2024 12:24 ET Workstation ID: [id number] Transcribed By: Self Edit Transcribed Date: 09/16/2024 [...] Signed Date: 09/06/2024 14:37 ET Workstation ID: [id number] Transcribed By: Self Edit Transcribed Date: 09/05/2024 [...] left the department in good condition. Result [facility] Cedric Friedman [facility] IMG BI PROCEDURES Edited Resul t - Final * Annual BMP Blood Test (09/02/2021) Pathologist [facility] Annual [facility] Blood Test abstracted Historical Provider HEALTH MAINTENANCE Final Result * (ABNORMAL) Hemoglobin A1c (09/02/2021) [facility] Hemoglobin A1C 7.1(A) <=6.5 % Blood Venous blood specimen / Unknown Result [facility] Historical Provider LAB BLOOD ORDERABLES Marianela l Result * Lipid panel (06/21/2021) [facility] LDL/HDL Ratio 2 0 - 4 Triglycerides 66 0 - 150 mg/dL Cholesterol 188 0 - 200 mg/dL HDL 77 >=40 mg/dL LDL Cholesterol 98 0 - 150 mg/dL Blood Venous blood specimen / Unknown Result [facility] Historical Provider LAB BLOOD ORDERABLES Marianela l Result * Urine Albumin Creatinine Ratio (03/31/2021) Urine Albumin Creatinine Ratio abstracted Historical Provider HEALTH MAINTENANCE Final Result * Hepatitis C Screening (12/06/2017) Hepatitis C Screening abstracted Historical Provider HEALTH MAINTENANCE Final Result from Last 3 Months or Most Recently Relevant to Health Maintenance Insurance [employer] MEDICARE Member Subscriber Plan / Payer (Ef fective 2021-Present) Name:Yenny Miller Relation to Subscriber:Self Name:Yenny Miller Payer ID:[id number] Group ID:[id number] Type:Not on file Address: [address] [place] [address] MEDICA[place] - [place]
== END 2025-04-14 10:52 | disposition home or self-care (01) ==
LOC: HO.HGI 10:16
PROVIDERS: PCP Nurse Practitioner Family; Visit Provider Nurse Practitioner Family
DX: K21.9 Gastro-esophageal reflux disease without esophagitis (principal)
CPT/HCPCS: 99213

== ENCOUNTER → 2025-04-14 10:15 | Outpatient (BNVA) | payer OTHER, SELFPAY | PROVIDERS: PCP Nurse Practitioner Family; Visit Provider Nurse Practitioner Family | DX: K21.9 Gastro-esophageal reflux disease without esophagitis (principal) | CPT/HCPCS: 99212 ==

== ENCOUNTER 2025-04-15 08:30 | Outpatient (REF) | payer OTHER, SELFPAY ==
--- OUTSIDE RECORDS SUMMARY | 2025-04-10 10:45 | XMS_ITS | Encounter Summary ---
Author Organization [employer] Address [address] [place] [address] Care Team Providers Care Hair Stylist Name Role Phone Unavailable Primary Care Provider Unavailabl e Reason for Visit * Reason Comments Follow-up Encounter Details Date Type Department Care Team ([facility] st Contact Info) Description 04/10/2025 10:45 AM EDT Office Visit [facility] Hematology Oncology [address] [place] [phone] Erasto Santana MD [address] [place] [phone] Infiltrating ductal carcinoma of breast, right (CMS/HCC [...] I T1bN0 invasive ductal mucinous breast cancer, ER/MT- positive, 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 She underwent a lumpectomy and sentinel lymph node biopsy on 10/29/2024. She completed adjuvant right breast radiation. She started adjuvant letrozole in late 01/2025. We discontinued letrozole due to a generalized rash. She started adjuvant tamoxifen in early 03/2025. #2 Synchronous left-sided stage I T1bN0 invasive lobular breast cancer, ER/MT- positive, 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 She [...] lobular carcinoma, ER-strongly positive (greater than 95%), MT-moderatelypositive (50%), HER2-negative (2+ by IHC; negative by FISH). She underwent a stereotactic biopsy ofthe right breast focal asymmetry on 09/13/2024 and the pathology showed invasive ductal carcinoma with mucinous features, ER-strongly positive (95%), MT-strongly positive (80%), HER2-negative (2+ of IHC; negative [...] I T1bN0 invasive ductal mucinous breast cancer, ER/MT-positive, HER2- negative (2+). She underwent a lumpectomy andsentinel lymph node biopsy on 10/29/2024. She presented in 08/2024 with a synchronous left-sided stage I T1bN0 invasive lobular breast cancer, ER/MT-positive, 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 She underwent [...] right-sized stage I invasive ductal breast cancer, ER/MT-positive, HER2-negative and a synchronous left-/stage I invasive lobular breast cancer ER/MT-positive, HER2- negative. She underwent bilateral lumpectomies. Oncotype [...] Description 07/11/2025 11:45 AM EST Office Visit [facility] Hematology Oncology [address] [place] [phone] Erasto Santana MD [address] [place] [phone] 08/25/2025 10:00 AM EDT Office Visit General Surgery - [place] [address] [facility] [address] [place] [phone] Jalen Ferguson MD [facility] [place] [phone] documented as of this encounter Visit Diagnoses Diagnosis Infiltrating ductal carcinoma of breast, right (CMS/HCC V24, CMS/HCC V28)- Primary Infiltrating lobular carcinoma of breast, stage 1, left (CMS/HCC V24, CMS/HCC V28) documented in this encounter
--- OUTSIDE RECORDS SUMMARY | 2025-04-11 10:59 | XMS_ITS | Encounter Summary ---
Author Organization [facility] Address [address] [place] [address] Care Team Providers Care Delivery Sales Worker Name Role Phone Unavailable Primary Care Provider Unavailabl e Reason for Visit * Reason Comments Follow-up Encounter Details Date Type Department Care Team (Latest Contact Info) Description 04/11/2025 10:59 AM EDT - 04/11/2025 11:59 PM EDT Hospital Encounter [facility] Radiation Oncology [address] [place] [id number] Abril Krishnamurthy, ZACK [address] [place] [address] Infiltrating ductal carcinoma of breast, right (CMS/HCC V24, CMS/HCC V28) (Primary Dx); Infiltrating lobular carcinoma of breast, stage 1, left (CMS/HCC V24, CMS/HCC V28) Discharge Disposition: Home or Self Care Social [...] 11:03 AM EDT documented in this encounter Medications at Time of Discharge albuterol HFA (PROAIR HFA ; PROVENTIL HFA ; VENTOLIN HFA) 90 mcg/actuation inhaler 2 puffs every 4 (four) hours if needed. 09/13/2021 amLODIPine (NORVASC) 10 mg tablet Take by mouth 1 (one) time each day. ascorbic acid (VITAMIN C) 500 mg chewable tablet 10/15/2021 blood sugar diagnostic (FreeStyle Lite Strips) test strip Use to test twice daily 09/13/2021 cholecalciferol (VITAMIN D-3) 25 mcg (1,000 unit) capsule Take 1 capsule (1,000 Units total) by mouth 1 (one) time each day. 05/06/2021 CYANOCOBALAMIN, VITAMIN B-12, ORAL Place 500 mcg under the tongue 1 (one) time each day. B-12 Microlozenge 500 MCG SL Tab Take 1 tablet by mouth daily. 04/26/2021 fluticasone propionate (FLONASE) 50 mcg/actuation nasal spray 1 spray 1 (one) time each day. 09/13/2021 FREESTYLE LANCETS MISC Use to test blood sugar 2 times daily 09/13/2021 insulin glargine (LANTUS) 100 unit/mL injection Inject 25 Units under the skin 1 (one) time each day in the morning. letrozole (FEMARA) 2.5 mg tablet Take 1 tablet (2.5 mg total) by mouth 1 (one) time each day Take with or without food. 90 tablet 3 02/12/2025 losartan (COZAAR) 100 mg tablet Take 1 tablet (100 mg total) by mouth 1 (one) time each day. metFORMIN XR (GLUCOPHAGE-XR) 500 mg 24 hr tablet TAKE 2 TABLETS BY MOUTH TWICE A DAY 09/20/2021 metoprolol tartrate (LOPRESSOR) 25 mg tablet Take 1 tablet (25 mg total) by mouth 2 (two) times a day. 09/20/2021 omeprazole (PriLOSEC) [address] capsule Take 1 capsule (20 mg total) by mouth 1 (one) time each day. Do not crush or chew. SITagliptin phosphate (JANUVIA) 50 mg tablet Take 1 tablet (50 mg total) by mouth 1 (one) time each day. Stop 3 days prior to sx tamoxifen (NOLVADEX) 20 mg chemo tablet Take 1 tablet (20 mg total) by mouth 1 (one) time each day Take with water or any other nonalcoholic drink with or without food at around the same time(s) every day. 30 each 11 03/20/2025 6 traMADoL (ULTRAM) 50 mg tabletIndication s:Infiltrating ductal carcinoma of breast, right (CMS/HCC V24, CMS/HCC V28),Infiltratin g lobular carcinoma of breast, stage 1, left (CMS/HCC V24, CMS/HCC V28) Take 1 tablet (50 mg total) by mouth every 8 (eight) hours if needed for severe pain for up to 5 doses. Max Daily Amount: 150 mg 5 tablet 10/29/2024 documented as of this encounter Discharge Disposition Disposition Code Departure Means Destination Home or Self Care documented in this encounter Progress Notes * Abril Krishnamurthy NP - 04/11/2025 11:00 AM EDT [address] [phone] RADIATION ONCOLOGY FOLLOW-UP Staff Physician: Abril Krishnamurthy NP Requesting Physician: Jalen Ferguson MD Date of Service: 04/11/2025 Accompanied by: Spouse Diagnosis: No diagnosis found. Stage: Cancer Staging No matching staging information was found for the patient. Prior treatment: Radiation Therapy: Breast Treatment Period Technique Fraction Dose Fractions Total Dose Course 1 01/09/2025-02/05/2025 (days elapsed: ) Left Breast 01/09/2025-01/30/2025 Tangents 267 / 267 cGy 16 / 4,272 / 4,272 cGy Right Breast 01/09/2025-01/30/2025 Tangents 267 / 267 cGy 16 4,272 / 4,272 cGy Left Breast Boost 01/31/2025-02/05/2025 KONG,LPO,THAI 250 / 250 cGy 1,000 / 1,000 cGy Right Breast Boost 01/31/2025-02/05/2025 THAI/RPO 250 / 250 cGy 1,000 / 1,000 [...] each day., Disp: , Rfl: FREESTYLE LANCETS [facility], Use to test blood sugar 2 times [...] Description 07/11/2025 11:45 AM EST Office Visit [facility] Hematology Oncology [address] [place] [address] Erasto Santana MD [address] [place] [address] 08/25/2025 10:00 AM EDT Office Visit General Surgery - [address] [place] [address] Jalen Ferguson MD [address] [place] [phone] documented as of this encounter Visit Diagnoses Diagnosis Infiltrating ductal carcinoma of breast, right (CMS/HCC V24, CMS/HCC V28)- Primary Infiltrating lobular carcinoma of breast, stage 1, left (CMS/HCC V24, CMS/HCC V28) documented in this encounter
--- OUTSIDE RECORDS SUMMARY | 2025-04-15 09:12 | XMS_ITS | Encounter Summary ---
Author Organization [employer] Address [address] [facility] [address] [place] [address] Care Team Providers Care Dive Master Name Role Phone Unavailable Primary Care Provider Unavailabl e Encounter Details Date Type Department Care Team (Latest Contact Info) Description 06/26/2018 Abstract [facility] CONVERSIONS Dental, Provider, DDS Social [...]
--- OUTSIDE RECORDS SUMMARY | 2025-04-15 09:12 | XMS_ITS | Clinical Summary ---
Author Organization [employer] Address [address] [facility] [address] [place] [address] Care Team Providers Care Air Pollution Engineer Name Role Phone Unavailable Primary Care [...] of Phone Billing Address Personal/Family Self [address]
--- OUTSIDE RECORDS SUMMARY | 2025-04-15 09:12 | XMS_ITS | Clinical Summary ---
Author Organization [facility] Address [address] [place] [address] Phone Care Team Providers Care Sock Ironer Name Role Phone Unavailable Primary Care Provider [...] Infiltrating ductal carcinom a of breast, right ([facility] V24, [facility] V28) 09/18/2024 Infiltrating lobular carcino ma of breast, stage 1, left ([facility] V24, [facility] V28) 09/18/2024 Abnormal iron saturation [...] weeks Allergic rhinitis 12/02/2016 Asthma 03/09/2016 Old CA (myocardial infarction) 03/09/2016 Overview (06/05/2024): NON STEMI 06/28/14 Echo normal / stress test 08/18/14 Follows with [facility] Type 2 diabetes mellitus wit h cataract ([facility] V24, [facility] V28) 03/09/2016 Overview (06/05/2024): Dx'd in 1996; Endo @ [facility] Venous insufficiency of both lower extremities 0 03/09/2016 Vitamin D deficiency 03/09/2016 Depression 12/01/2015 Essential hypertension 12/01/2015 Gastroesophageal reflux disease without esophagi tis 12/01/2015 Encounters Date Type Department Care Team Description 04/11/2025 10:59 AM EDT - 04/11/2025 11:59 PM EDT Hospital Encounter [facility] Radiation Oncology [address] [place] [phone] Abril Krishnamurthy NP Infiltrating ductal carcinoma of breast, right (CMS/HCC V24, CMS/HCC V28) (Primary Dx); Infiltrating lobular carcinoma of breast, stage 1, left (CMS/HCC V24, CMS/HCC V28) Discharge Disposition: Home or Self Care 04/10/2025 10:45 AM EDT Office Visit [facility] Hematology Oncology [address] [place] [phone] Erasto Santana MD Infiltrating ductal carcinoma of breast, right (CMS/HCC V24, CMS/HCC V28) (Primary Dx); Infiltrating lobular carcinoma of breast, stage 1, left ([facility]/HCC V24, CMS/HCC V28) 03/20/2025 Telephone [facility] Hematology Oncology [address] [place] [phone] Erasto Santana MD 03/18/2025 11:15 AM EDT Office Visit [facility] Hematology Oncology [address] [place] [phone] Erasto Sanatna MD Infiltrating ductal carcinoma of breast, right (CMS/HCC V24, CMS/HCC V28) (Primary Dx); Infiltrating lobular carcinoma of breast, stage 1, left ([facility]/HCC V24, CMS/HCC V28) 03/03/2025 Telephone [facility] Hematology Oncology [address] [place] [phone] Juanis Ramirez ME 02/24/2025 9:15 AM EDT Office Visit General Surgery - [place] [address] [phone] Jalen Ferguson MD History of partial mastectomy of both breasts (Primary Dx); Infiltrating lobular carcinoma of breast, stage 1, left (CMS/HCC V24, CMS/HCC V28); Infiltrating ductal carcinoma of breast, right (CMS/HCC V24, CMS/HCC V28) 02/19/2025 9:20 AM EDT - 02/19/2025 11:59 PM EDT Hospital Encounter [facility] Bone Density [address] [place] [phone] Osteoporosis, unspecified osteoporosis type, unspecified pathological fracture presence; Encounter for osteoporosis screening in asymptomatic postmenopausal patient; Osteopenia after menopause Discharge Disposition: Home or Self Care 02/12/2025 11:06 AM EDT - 02/12/2025 11:59 PM EDT Hospital Encounter [facility] Radiation Oncology [address] [place] [phone] Abril Krishnamurthy NP Infiltrating lobular carcinoma of breast, stage 1, left (CMS/HCC V24, CMS/HCC V28) (Primary Dx) Discharge Disposition: Home or Self Care 02/12/2025 10:30 AM EDT Office Visit [facility] Hematology Oncology [address] [place] [phone] Erasto Santana MD Infiltrating ductal carcinoma of breast, right (CMS/HCC V24, CMS/HCC V28) (Primary Dx); Infiltrating lobular carcinoma of breast, stage 1, left (CMS/HCC V24, CMS/HCC V28) 02/05/2025 9:10 AM EDT - 02/05/2025 11:59 PM EDT Hospital Encounter [facility] Radiation Oncology [address] [place] [phone] Abril Krishnamurthy NP Discharge Disposition: Home or Self Care 02/05/2025 8:47 AM EDT - 02/05/2025 11:59 PM EDT Hospital Encounter [facility] Radiation Oncology [address] [place] [phone] Discharge Disposition: Home or Self Care 02/04/2025 8:51 AM EDT - 02/04/2025 11:59 PM EDT Hospital Encounter [facility] Radiation Oncology [address] [place] [phone] Discharge Disposition: Home or Self Care 02/03/2025 8:54 AM EDT - 02/03/2025 11:59 PM EDT Hospital Encounter [facility] Radiation Oncology [address] [place] [phone] Discharge Disposition: Home or Self Care 01/31/2025 10:33 AM EDT - 01/31/2025 11:59 PM EDT Hospital Encounter [facility] Radiation Oncology [address] [place] [phone] Pierre Peoples MD Infiltrating ductal carcinoma of breast, right (CMS/HCC V24, CMS/HCC V28) (Primary Dx) Discharge Disposition: Home or Self Care 01/31/2025 10:30 AM EDT - 01/31/2025 11:59 PM EDT Hospital Encounter [facility] Radiation Oncology [address] [place] [phone] Pierre Peoples MD Discharge Disposition: Home or Self Care 01/31/2025 9:41 AM EDT - 01/31/2025 11:59 PM EDT Hospital Encounter [facility] Radiation Oncology [address] [place] [phone] Discharge Disposition: Home or Self Care 01/30/2025 8:47 AM EDT - 01/30/2025 11:59 PM EDT Hospital Encounter [facility] Radiation Oncology [address] [place] [phone] Discharge Disposition: Home or Self Care 01/29/2025 8:43 AM EDT - 01/29/2025 11:59 PM EDT Hospital Encounter [facility] Radiation Oncology [address] [place] [phone] Discharge Disposition: Home or Self Care 01/29/2025 7:21 AM EDT - 01/29/2025 11:59 PM EDT Hospital Encounter [facility] Radiation Oncology [address] [place] [phone] Discharge Disposition: Home or Self Care 01/28/2025 8:57 AM EDT - 01/28/2025 11:59 PM EDT Hospital Encounter [facility] Radiation Oncology [address] [place] [phone] Discharge Disposition: Home or Self Care 01/27/2025 9:05 AM EDT - 01/27/2025 11:59 PM EDT Hospital Encounter [facility] Radiation Oncology [address] [place] [phone] Pierre Peoples MD Infiltrating ductal carcinoma of breast, right (CMS/HCC V24, CMS/HCC V28) Discharge Disposition: Home or Self Care 01/27/2025 8:45 AM EDT - 01/27/2025 11:59 PM EDT Hospital Encounter [facility] Radiation Oncology [address] [place] [phone] Discharge Disposition: Home or Self Care 01/24/2025 9:02 AM EDT - 01/24/2025 11:59 PM EDT Hospital Encounter [facility] Radiation Oncology [address] [place] [phone] Cynthia Cuba MD Infiltrating ductal carcinoma of breast, right (CMS/HCC V24, CMS/HCC V28) (Primary Dx) Discharge Disposition: Home or Self Care 01/24/2025 8:47 AM EDT - 01/24/2025 11:59 PM EDT Hospital Encounter [facility] Radiation Oncology [address] [place] [phone] Discharge Disposition: Home or Self Care 01/23/2025 8:40 AM EDT - 01/23/2025 11:59 PM EDT Hospital Encounter [facility] Radiation Oncology [address] [place] [phone] Discharge Disposition: Home or Self Care 01/22/2025 8:52 AM EDT - 01/22/2025 11:59 PM EDT Hospital Encounter [facility] Radiation Oncology [address] [place] [phone] Discharge Disposition: Home or Self Care 01/21/2025 8:47 AM EDT - 01/21/2025 11:59 PM EDT Hospital Encounter [facility] Radiation Oncology [address] [place] [phone] Discharge Disposition: Home or Self Care 01/20/2025 8:35 AM EDT - 01/20/2025 11:59 PM EDT Hospital Encounter [facility] Radiation Oncology [address] [place] [phone] Discharge Disposition: Home or Self Care 01/20/2025 [facility] 175 [facility] [address] [phone] Hari Baer MD 01/17/2025 9:01 AM EDT - 01/17/2025 11:59 PM EDT Hospital Encounter [facility] Radiation Oncology [address] [place] [phone] Cynthia Cuba MD Infiltrating ductal carcinoma of breast, right (CMS/HCC V24, CMS/HCC V28) (Primary Dx) Discharge Disposition: Home or Self Care 01/17/2025 8:47 AM EDT - 01/17/2025 11:59 PM EDT Hospital Encounter [facility] Radiation Oncology [address] [place] [phone] Discharge Disposition: Home or Self Care 01/16/2025 8:37 AM EDT - 01/16/2025 11:59 PM EDT Hospital Encounter [facility] Radiation Oncology [address] [place] [phone] Discharge Disposition: Home or Self Care 01/15/2025 8:48 AM EDT - 01/15/2025 11:59 PM EDT Hospital Encounter [facility] Radiation Oncology [address] [place] [phone] Discharge Disposition: Home or Self Care 01/14/2025 8:44 AM EDT - 01/14/2025 11:59 PM EDT Hospital Encounter [facility] Radiation Oncology [address] [place] [phone] Discharge Disposition: Home or Self Care 01/13/2025 8:39 AM EDT - 01/13/2025 11:59 PM EDT Hospital Encounter [facility] Radiation Oncology [address] [place] [phone] Discharge Disposition: Home or Self Care from [...] older (Afluria) 3 years and older 03/18/2016 [email or web address] SARS-CoV-2 COVID -19, vector-nr, rS-Ad26, preservative free 09/22/2020 [employer] SARS-CoV-2 COVID-19, mRNA, LNP-S, preservative free 07/06/2021 [...] phlebectomy COLONOSCOPY 12/12/2006 PROCEDURE: HISTORICAL COLONOSCOPY; COMMENT: [email or web address] [place] normal screening exam, not difficult. COLONOSCOPY W/ POLYPECTOMY 12/12/2016 PROCEDURE: ID COLSC FLX W/RMVL OF TUMOR POLYP LESION [...] a Exertional asthma 12/01/2015 DX:Exertional asthma Old CA (myocardial infarction) 03/09/2016 D X:Old CA (myocardial infarction); COMMENT: NON STEMI 06/28/14 / stress test 08/18/14 Venous insufficiency of both lower extremities 03/09/2016 DX:Venous insufficiency of b oth lower extremities; COMMENT: EVLT 2014/ Dr Mohan Benedict Type 2 diabetes mellitus wit h cataract ([facility] V24, [facility] V28) 03/09/2016 DX:Type 2 diabetes mellitus with cataract (HCC); COMMENT: OU Varicose veins 03/09/2016 DX:Varicose vein s Atrial fibrillation ([facility] V24, [facility] V28) 03/09/2016 DX:Atrial fibrillation (HCC) 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 Vitamin D deficiency 03/09/2016 DX:Vitamin D deficiency Asthma 03/09/2016 DX:Asthma Allergic rhinitis 12/02/2016 DX:Allergic rh initis Enlarged parotid gland 10/23/2018 DX:Enlarg ed parotid gland Low ferritin DX:Low ferritin Abnormal iron saturation DX:Abno rmal iron saturation Irregular heart beat A fib Cancer ([facility] V24, [facility] V28) breast Family History Medical History Relation [...] Description 07/11/2025 11:45 AM EST Office Visit [facility] Hematology Oncology [address] [place] [phone] Erasto Santana MD [address] [place] [phone] 08/25/2025 10:00 AM EDT Office Visit General Surgery - [place] 175 [facility] [address] [place] [phone] Jalen Ferguson MD [address] [place] [phone] Health Maintenance Due Date Last Done [...] this topic Medical Devices Implanted Type Area Coal Equipment Operator Device Identifier Shelf Expiration Date Model / Serial / Lot Marker Brst Biopsy Site Hydromark - [id number] Implanted:Qty: 1 on 09/05/2024 by Marina May MD at [facility] Breast Implants Right: Breast DEVICOR [employer] [id number] 12/31/2026 4010-05-1 0-T1 / / [id number] D Hemostat Flour Collgn 1gm Avitene - Sna - [id number] Implanted:Qty: 1 on 10/29/2024 by Jalen Ferguson MD at [facility] Hemostasis Left: Breast CR BARD - DAVOL DIV [id number] 06/15/2027 [id number] / NA / [id number] Hemostat Flour Collgn 1gm Avitene - Sna - [id number] Implanted:Qty: 1 on 10/29/2024 by Jalen Ferguson MD at [facility] Hemostasis Right: Breast CR BARD - DAVOL DIV [id number] 06/15/2027 [id number] / NA / [id number] Marker Hydromark 15g Butterfly T4 Ti - [id number] - [id number] Implanted:Qty: 1 on 08/26/2024 by Moses Basurto MD at [facility] Imaging Implants Left: Breast DEVICOR MED PROD MAMMOTOME [id number] 04/30/2027 4010-02-1 5-T4 / [id number] / [id number] D Marker 18ga Magseed 7cm - [id number] - [id number] Implanted:Qty: 2 on 09/27/2024 by Moses Basurto MD at [facility] Imaging Implants N/A: Breast [employer] [id number] 12/16/2025 [id number] / [id number] / [id number] Description:BILATERAL Procedures Procedure Name Priority Date/Time Associated [...] probability of hip fracture of 0.7%. Code 45702 -------- FINAL REPORT -------- Dictated By: Donnell Gant Dictated Date: 02/19/2025 09:51 ET Assigned Physician: Donnell Gant Reviewed and Electronically Signed By: Donnell Gant Signed Date: 02/19/2025 09:52 ET Workstation ID: [id number] Transcribed By: Self Edit Transcribed Date: 02/19/2025 [...] density of the femurs bilaterally is 1.011 gm/pf1jkrjl is 100% of that of young normals [...] probability of hip fracture of 0.7%. Code 52509 -------- FINAL REPORT -------- Dictated By: Donnell Gant Dictated Date: 02/19/2025 09:51 ET Assigned Physician: Donnell Gant Reviewed and Electronically Signed By: Donnell Gant Signed Date: 02/19/2025 09:52 ET Workstation ID: [id number] Transcribed By: Self Edit Transcribed Date: 02/19/2025 [...] 1,000 cGray MOSAIQ RADIATION ONCOLOGY Prescribed Technique SENEGALESE/RPO MOSAIQ RADIATION ONCOLOGY Elapsed Days 5 MOSAIQ [...] 1,000 cGray MOSAIQ RADIATION ONCOLOGY Prescribed Technique KONG,LPO,SENEGALESE MOSAIQ RADIATION ONCOLOGY Elapsed Days 5 MOSAIQ [...] 750 cGray MOSAIQ RADIATION ONCOLOGY Prescribed Technique SENEGALESE/RPO MOSAIQ RADIATION ONCOLOGY Elapsed Days 4 MOSAIQ [...] 750 cGray MOSAIQ RADIATION ONCOLOGY Prescribed Technique KONG,LPO,SENEGALESE MOSAIQ RADIATION ONCOLOGY Elapsed Days 4 MOSAIQ RADIATION ONCOLOGY Start Date 01/31/2025 MOSAIQ RADIATION ONCOLOGY Last Date 02/04/2025 MOSAIQ RADIATION ONCOLOGY Prescribed Number of Fractions 4 MOSAIQ RADIATION ONCOLOGY 02/04/2025 9:05 AM EDT Physician Radiation Oncology MD RADIATION [...] 500 cGray MOSAIQ RADIATION ONCOLOGY Prescribed Technique SENEGALESE/RPO MOSAIQ RADIATION ONCOLOGY Elapsed Days 3 MOSAIQ [...] 500 cGray MOSAIQ RADIATION ONCOLOGY Prescribed Technique KONG,LPO,SENEGALESE MOSAIQ RADIATION ONCOLOGY Elapsed Days 3 MOSAIQ RADIATION ONCOLOGY Start Date 01/31/2025 MOSAIQ RADIATION ONCOLOGY Last Date 02/03/2025 MOSAIQ RADIATION ONCOLOGY Prescribed Number of Fractions 4 MOSAIQ RADIATION ONCOLOGY 02/03/2025 9:13 AM EDT us Physician Radiation Oncology RADIATION ONCANAHY GY ORDERABLES Final Result Performing Organization Address City/State/[facility] Co de Phone Number MOSAIQ RADIATION ONCOLOGY * Rad Onc Msq [...] 250 cGray MOSAIQ RADIATION ONCOLOGY Prescribed Technique SENEGALESE/RPO MOSAIQ RADIATION ONCOLOGY Elapsed Days 0 MOSAIQ [...] 250 cGray MOSAIQ RADIATION ONCOLOGY Prescribed Technique KONG,LPO,SENEGALESE MOSAIQ RADIATION ONCOLOGY Elapsed Days 0 MOSAIQ RADIATION ONCOLOGY Start Date 01/31/2025 MOSAIQ RADIATION ONCOLOGY Last Date 01/31/2025 MOSAIQ RADIATION ONCOLOGY Prescribed Number of Fractions 4 MOSAIQ RADIATION ONCOLOGY 01/31/2025 10:3 3 AM EDT us Physician Radiation Oncology RADIATION [...] 9:07 AM EDT Physician Radiation Oncology RADIATION ONCANAHY [...] 9:02 AM EDT Physician Radiation Oncology RADIATION ONCOLO [...] 9:04 AM EDT us Physician Radiation Oncology MD RADIATION ONCOLO GY [...] features. ? Greatest length of carcinoma: 8mm [place] score: Grade 2 Glandular/tubular morphology: 3 Nuclear [...] Signed Date: 09/16/2024 12:24 ET Workstation ID: [id number] Transcribed By: Self Edit Transcribed Date: 09/16/2024 [...] Signed Date: 09/06/2024 14:37 ET Workstation ID: [id number] Transcribed By: Self Edit Transcribed Date: 09/05/2024 [...] the department in good condition. Cedric Friedman PASSENGER TIRE INSPECTOR IMG BI PROCEDURES Edited Resul t - Final * Annual BMP Blood Test (09/02/2021) Pathologist [facility] Annual BMP Blood Test abstracted Historical Provider HEALTH MAINTENANCE Final Result * (ABNORMAL) Hemoglobin A1c (09/02/2021) [facility] Hemoglobin A1C 7.1(A) <=6.5 % Blood Venous blood specimen / Unknown Result [facility] Provider LAB BLOOD ORDERABLES Marianela l Result * Lipid panel (06/21/2021) [facility] LDL/HDL Ratio 2 0 - 4 Triglycerides 66 0 - 150 mg/dL Cholesterol 188 0 - 200 mg/dL HDL 77 >=40 mg/dL LDL Cholesterol 98 0 - 150 mg/dL Blood Venous blood specimen / Unknown Historical Provider LAB BLOOD ORDERABLES Marianela l [...] ID:[id number] Group ID:[id number] Type:Not on file Address: [facility] [address] [address] [place]ICA[place] - [place]
--- OUTSIDE RECORDS SUMMARY | 2025-04-15 09:12 | XMS_ITS ---
Author Organization [facility] Address [address] [place] [address] Phone Care Team Providers Care Glass Blowing Instructor Name Role Phone Unavailable Primary Care Provider [...] weeks Allergic rhinitis 12/02/2016 Asthma 03/09/2016 Old [place] (myocardial infarction) 03/09/2016 Overview (06/05/2024): NON STEMI 06/28/14 Echo normal / stress test 08/18/14 Follows with [facility] Type 2 diabetes mellitus wit h cataract ([facility]/HCC V24, [facility] V28) 03/09/2016 Overview (06/05/2024): Dx'd in 1996; Endo @ [facility] Venous insufficiency of both lower extremities [...]
--- OUTSIDE RECORDS SUMMARY | 2025-04-15 09:12 | XMS_ITS | Encounter Summary ---
Author Organization [employer] Address [address] [facility] [address] [place] [address] Care Team Providers Care Base Engineer Name Role Phone Unavailable Primary Care Provider Unavailabl e Encounter Details Date Type Department Care Team (Latest Contact Info) Description 04/29/2019 Abstract [facility] CONVERSIONS Dental, Provider, DDS Social History Tobacco [...]
[2025-04-15 11:53] LABS: Cholesterol 157 mg/dL (<200); HDL Cholesterol 56 mg/dL (>40); Triglycerides 69 mg/dL (<150)
== END 2025-04-15 08:31 | disposition home or self-care (01) ==
LOC: HO.WFDLDS 08:30
PROVIDERS: Visit Provider Nurse Practitioner Family
DX: E78.5 Hyperlipidemia, unspecified (principal)
CPT/HCPCS: 36415; 80061

== ENCOUNTER 2025-04-18 09:40 | Outpatient (AMB) | payer OTHER, SELFPAY ==
--- NOTE | 2025-04-18 09:45 | A.OFFPC_ITS ---
Vital Signs 04/18/25 09:54 Height 5 ft 8 in Weight 164 lb 6 oz BMI 25.0 BP 130/58 L Blood Pressure Location Rt brachial Position Sitting Respiration 16 Pulse 61 Pulse Source Pulse Oximeter Temp 98.1 F Temp Source Oral Pulse Oximetry (%) 98 Oxygen Delivery Method Room Air Intake Visit Reasons: CPE and labs review after 04/10/25 Intake Note: patient here for CPE and labs review Graphics Software Engineer Required: No Graphics Software Engineer Name: w/ Information Interpreted: non-clinical & clinical Is last menstrual period known: No Post menopausal: No Patient : No Allergies atorvastatin (Lipitor) Allergy (Unknown, Verified 04/18/25 10:38) unknown cephalexin (Keflex) Allergy (Unknown, Verified 04/18/25 10:38) unknown codeine Allergy (Unknown, Verified 04/18/25 10:38) unknown letrozole Allergy (Unknown, Verified 04/18/25 10:38) Itching morphine Allergy (Unknown, Verified 04/18/25 10:38) unknown oxycodone (Percocet) Allergy (Unknown, Verified 04/18/25 10:38) unknown Penicillins Allergy (Unknown, Verified 04/18/25 10:38) Unknown Medication List - Last Reconciled 04/18/25 by Cedric Friemdan CNP albuterol sulfate 90 mcg/actuation 2 puffs inhalation Q6H PRN amlodipine 10 mg PO DAILY 90 days ascorbic acid (vitamin C) (Vitamin C) 500 mg PO DAILY blood sugar diagnostic ([employer] Lt[employer] Verio test strips) Three times a day FUTURE REFILLS FROM PCP. blood-glucose meter ([employer] ([employer] Verio Flex Start kit) As directed 3 times a day cholecalciferol (vitamin D3) 25 mcg PO DAILY 90 days flash glucose sensor ([employer] River 14 Day Sensor kit) every 14 days fluticasone propionate 50 mcg/actuation 1 spray intranasal DAILY insulin glargine (Lantus Solostar U-100 Insulin) 30 units (0.3 mL) subcut QAM lancets (CC videoTouch Delica Lancets) Three times a day losartan 50 mg PO BID 30 days metformin ER 1,000 mg (2 x 500 mg) PO BID 90 days metoprolol tartrate 25 mg PO BID miscellaneous medical supply Blood pressure monitoring omeprazole 40 mg (2 x 20 mg) PO DAILY pen needle, diabetic (BD Rosina 2nd Gen Pen Needle) Twice a day rivaroxaban (Xarelto) 20 mg PO QPM sitagliptin phosphate (Januvia) 50 mg PO DAILY 90 days tamoxifen 20 mg PO DAILY Tobacco use date assessed: 04/18/25 Fall risk assessment: No Falls in past year Last assessed Fall Risk: 04/18/25 Dental Screening Dental Screen Date: 04/18/25 Did you have a dental visit in the last 12 months?: Yes Did you have a dental problem in the last 6 months where you did not have access to dental care?: No Was dental information given to patient?: Patient has dentist HPI HPI Comments History of Present Illness Details 70-year-old female, accompanied by her h usband, presents for an extended physical exam. Patient is mostly Portuguese-speaking. She admits to taking her medications as prescribed without adverse reactions. She was diagnosed with cancer both breast in 05/2024. She completed 20 course of radiation therapy for bilateral breast cancer in 02/09/[address] [facility]. Acute issue(s) - None Past Medical History - Hypertension, type 2 diabetes on insul in, hyperlipidemia, vitamin-D deficiency, vitamin B12 deficiency, iron deficiency anemia, AFib, and GERD. She has h/o depression with controlled symptoms without medications or psychothe rapy. Social History - Nonsmoker. Does not vape. Does not dri nk alcohol. Denies recreational drug use - Has been making healthy dietary choice s. Active but does not exercise. Generally sleep well Health maintenance - Last eye exam was in 10/02/2024 with [facility] - Last dental visit was 2 weeks ago - Last Tdap was in 08/12/2014; received T dap vaccine today - Has not been vaccinated for the flu ; receives vaccination today - Up-to-date on the PNA vaccines - Has not been vaccinated for shingles; encouraged to get vaccinated for shingles at the local pharmacy - Last pap smear test was with [facility] 3 years ago: normal. History of total hysterectomy. She does was told that was her last test - Last mammogram was in 05/2024: Cancer of both breasts - Last colonoscopy was in 08/08/2024: Be nign polyps - Last dexa scan was in 04/25/2023: Norm al. 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 Family/Other Diabetes Mother Mental health disorder Social History Household Members: Spouse Housing: Apartment Are you a primary clinical manager home care to a significant other at home: No Do you presently have visiting nurse or other home services: No Alcohol intake: current Alcohol intake frequency: does not drink Patient Tobacco Use Status: Never used Tobacco e-Cigarette/Vaping Use: Never Used Second Hand Smoke Exposure: No service: No Current occupational status: disabled Current occupational exposures/hazards: No Cognitive needs: No Hearing needs: No Vision needs: No Questionnaire PHQ-9 Over the last 2 weeks, how often have you been bothered by any of the following problems? 1. Little interest or pleasure in doing things: not at all 2. Feeling down, depressed, or hopeless: not at all 3. Trouble falling or staying asleep, or sleeping too much: not at all 4. Feeling tired or having little energy: not at all 5. Poor appetite or overeating: several days 6. Feeling bad about yourself - or that you are a failure or have let yourself or your family down: more than half the days 7. Trouble concentrating on things, such as reading the newspaper or watching television: not at all 8. Moving or speaking so slowly that other people could have noticed. Or the opposite - being so fidgety or restless that you have been moving around a lot more than usual: not at all 9. Thoughts that you would be better off or of hurting yourself in some way: not at all Total score: 3 Depression Screening Interpretation: Negative Depression Screening Done: Yes 66341 - PHQ-9 Billing: Yes Source: Developed by Drs. Rob Johnson, Karla Washington, Colin Garcia and colleagues, with an educational lele from [employer]. Thrive Questionnaire Date Thrive assessed: 04/18/25 I am a: Patient What is your living situation today?: I have a steady place to live Within the past 12 months, did the food you bought not last and you didn't have the money to get more?: Sometimes True Within the past 12 months, did you worry whether your food would run out before you got money to buy more?: Sometimes True Do you have trouble paying for medicines?: No Do you have trouble getting transportation to medical appointments?: No Do you have trouble paying your heating and electricity bill?: No Do you have trouble taking care of your child, family member or friend?: No Do you have trouble with day-to-day activities such as bathing, preparing meals, shopping, managing finances, etc.?: Yes Are you currently unemployed and looking for a job?: No Are you interested in more education?: I choose not to answer this question Currently or been in a relationship where the following occur: I choose not to answer THRIVE Score: 2 AUDIT C Alcohol Use Questionnaire (AUDIT-C) 1. How often do you have a drink containing alcohol?: Never 3. How often do you have six or more drinks on one occasion?: Never Total Score: 0 Score Reviewed/Action Taken: Yes JULIAN-7 AMB Questionnaire JULIAN-7 Date JULIAN - 7 assessed: 04/18/25 Feeling nervous, anxious, or on edge: 0 = Not at all Not being able to stop or control worryin = Not at all Worrying too much about different things: 0 = Not at all Trouble relaxin = Not at all Being so restless that it is hard to sit still: 0 = Not at all Becoming easily annoyed or irritable: 0 = Not at all Feeling afraid as if something awful might happen: 0 = Not at all Total JULIAN-7 score (0-4 normal; 5-9 mild; 10-14 moderate; 15-21 severe): 0 Source: Developed by Karla Ortiz, Colin Garica and colleagues, with an educational lele from [employer]. JULIAN-7 Assessment Billing JULIAN-7 Assessment Tool: JULIAN-7 Assessment 83176 ACT Questionnaire In the past 4 weeks, how much of the time did your asthma keep you from getting as much done at work, school or at home?: None of the time During the past 4 weeks, how often did your asthma symptoms wake you up at night or earlier than usual in the morning?: Not at all During the past 4 weeks, how often have you had to use your rescue inhaler or nebulizer medication?: Not at all How would you rate your asthma control during the past 4 weeks?: Completely controlled ACT Interpretation: Negative Score: 20 Review of Systems Const Details: Denies chills, Denies fatigue, Denies fever(s), Denies headache(s) and Denies weakness HEENT Denies change in vision, Denies dizziness, Denies headache(s), Denies hearing loss, Denies nasal congestion, Denies sinus pain, Denies sinus pressure and Denies sore throat Card Denies chest pain, Denies lightheadedness, Denies dyspnea and Denies other (p alpitations) Resp Denies cough, Denies dyspnea and Denies wheezing GI Denies abdominal pain, Denies melena, Denies hematochezia, Denies change in bowel habits, Denies dyspepsia and Denies nausea Denies hematuria and Denies dysuria Musc Denies abnormal gait, Denies myalgias, Denies arthralgias, Denies numbness and Denies tingling Skin/Breast Denies rash, Denies unusual bruising and Denies wounds Neuro Denies abnormal gait, Denies dizziness, Denies headache(s), Denies memory loss, Denies numbness, Denies Sensory deficit (Neuro), Denies tingling and Denies weakness Psych Denies anxiety, Denies depression and Denies memory loss Endo Denies cold intolerance, Denies fatigue, Denies heat intolerance, Denies polydipsia and Denies polyuria Marshall/Lymph Denies easy bleeding and Denies easy bruising Aller/Immun Denies wheezing Physical exam (Primary Care) Vital Signs: Last Vital Signs Temp 98.1 F 04/18/25 09:54 Pulse 61 04/18/25 09:54 Resp 16 04/18/25 09:54 BP 130/58 L 04/18/25 09:54 Pulse Ox 98 04/18/25 09:54 Oxygen Delivery Method Room Air 04/18/25 09:54 BMI result Body Mass Index 25.0 Tobacco/Smoking Status: Tobacco use Status Tobacco use date assessed 04/18/25 04/18/25 09:58 Patient Tobacco Use Status Never used Tobacco 04/18/25 09:58 e-Cigarette/Vaping Use Never Used 04/18/25 09:58 PHQ-9: PHQ-9 Score PHQ-9: Total score 3 04/18/25 11:20 Depression Screening Interpretation: Negative Thrive Assessment: Date of Thrive Assessment Date Thrive assessed 04/18/25 04/18/25 09:58 Currently or been in a relationship where the following occur: I choose not to answer Const Other: General: no acute distress, well developed, alert and awake Nutritional Appearance: well nourished Orientation/consciousness: patient oriented x3 HENMT Head: Yes normocephalic and Yes atraumatic Ears: hearing grossly normal bilaterally and TM's normal bilaterally General nose exam: Normal external nose present and Normal nares present Mouth: Normal oral and palatal mucosa present and moist mucous membranes Teeth and gingiva: dentition normal Throat: Yes oropharynx normal Eyes Pupils: Equal, round and reactive pupils present and Pupil accommodation reflex normal EOM: EOMs intact bilaterally Neck Neck: Yes normal visual inspection, Yes no lymphadenopathy and Yes trachea midl ine Thyroid: Thyroid normal Carotids: no bruits Lymphatic: no lymphadenopathy noted Chest Chest palpation & inspection: normal inspection of the chest Resp Effort & Inspection: normal respiratory effort Auscultation: clear to auscultation bilaterally Cardio Rate: regular rate Rhythm: regular rhythm Heart sounds: S1 normal heart sound present, S2 normal heart sound present, no gallops, no murmurs and no rubs Bruits: no abdominal aortic bruits and no carotid bruits GI Palpation (GI): No Abdominal aortic bruit present, Soft to palpation, nontender, No hepatosplenomegaly present and No Rebound tenderness present Auscultation: normal bowel sounds General: Yes no CVA tenderness Back/Spine/Pelvis Back: no CVA tenderness Cervical Spine: cervical ROM normal and No Cervical spine tenderness Thoracic/Lumbar Spine: thoraco-lumbar ROM normal, No pain with thoraco-lumbar ROM, No thoracic spinal tenderness and No lumbar spinal tenderness Skin General: warm and dry. Normal skin color. Normal skin turgor Lesions: no lesions Rashes: no rashes Trauma: no lacerations or abrasions Wounds: no wounds Nails: normal Neuro General: patient oriented x3, gait normal and CN's II-XI intact bilaterally Cranial nerves: Yes Equal, round and reactive pupils present Cognition (Neuro): normal cognition Gait exam (Neuro): Normal gait present Motor exam (neuro): 5/5 motor strength present throughout Sensory Exam: No Sensory deficit (Neuro) Deep tendon reflexes (DTR's): Right patellar reflex intensity grade: 2+ and Left patellar reflex intensity grade: 2+ Extrem General: Yes normal to inspection, No edema and No calf tenderness Psych Appearance: grossly normal Affect: normal affect Attitude: cooperative Thought process: Normal thought process present Office Procedures Flu Questionnaire Does the patient have a severe egg allergy?: No Does the patient have severe life threatening allergies?: No Does the patient have a fever or illness today?: No Has the patient ever had Guillain-Osseo Syndrome?: No Has the patient ever had any past reaction to a flu shot?: No Immunizations Fluarix [id number] (PF) 45 mcg (15 mcg x 3)/0.5 mL IM syringe Performing Provider: Cedric Friedman CNP Performing Location: [facility] [facility] Administered by: Brittanie Mcleod RN on 04/18/25 11:21 Dose Route Admin Location Dispensed Lot Number Expiration Date [facility] Boom Tender 0.5 mL IM Right Deltoid 0.5 mL [id number] 12/16/25 42808-043-57 [facility] VIS Given Date VIS Provided VIS Publication Date 04/18/25 Single Vaccine 24 Eligibility Eligibility Date Funding Source Not [facility] Eligible 04/18/25 Private Boostrix Tdap 2.5 Lf unit-8 mcg-5 Lf/0.5 mL intramuscular syringe Performing Provider: Cedric Friedman CNP Performing Location: [facility] [place] Administered by: Brittanie Mcleod RN on 04/18/25 11:21 Dose Route Admin Location Dispensed Lot Number Expiration Date [facility] Boom Tender 0.5 mL IM Left Deltoid 0.5 mL [id number] 05/16/27 37477-140-03 [employer]oomin[employer] Total Dispensed Waste 0.5 mL 0 % VIS Given Date VIS Provided VIS Publication Date 04/18/25 Single Vaccine 21 Eligibility Eligibility Date Funding Source Not [facility] Eligible 04/18/25 Private Coding Level of Care Code Est Pt Prev Care >65y(83875) Diagnoses Normal physical examination, routine Z00. Laboratory tests ordered as part of a complete physical exam (CPE) Z00. Additional Codes Asthma Control Questionnaire - ACT Interpretation: Negative ([id number]) JULIAN-7 Assessment Billing - JULIAN-7 Assessment Tool: JULIAN-7 Assessment 22463 ([id number]) PHQ-9 - 49089 - PHQ-9 Billing: Yes ([id number]) Assessment & Plan Assessment & Plan (1) Normal physical examination, routine: Code(s): Z00.00 - Encounter for general adult medical examination without abnormal findings Category: Medical Plan: Normal physical exam except for slight unsteady tandem gait; gait otherwise normal. Continue current treatment regimen. Healthy diet and routine exercise encouraged. Instructed on safety to prevent fall. Perform fasting lab work a few days before next visit. Follow-up for hypertension, diabetes, and labs review in 6 weeks. Return sooner with symptoms or concerns. Verbalized understanding and agreed with the treatment plan. (2) Laboratory tests ordered as part of a complete physical exam (CPE): Code(s): Z00.00 - Encounter for general adult medical examination without abnormal findings Category: Medical Plan: Fasting labs ordered as part of a complete physical exam. Advised to fast for at least 10 hours before getting labs drawn. May drink water Verbalized understanding and agreed with treatment plan. Orders: Orders TDaP Immunization 04/18/25 Z23 - Encounter for immunization Influenza [id number] Immunization 04/18/25 Z23 - Encounter for immunization Comprehensive [place]. Panel Fast 04/18/25 Z00.00 - Encounter for general adult medical examination without abnormal findings Microalbumin, Random (w Creat) 04/18/25 Z00. - Encounter for general adult medical examination without abnormal findings Complete Blood Count Auto Diff 04/18/25 Z00. - Encounter for general adult medical examination without abnormal findings TSH reflex Free T4 04/18/25 Z00.00 - Encounter for general adult medical examination without abnormal findings UA CC w/rflx Micro + Cult 04/18/25 Z00. - Encounter for general adult medical examination without abnormal findings Vitamin D 25-OH Total 04/18/25 Z00.00 - Encounter for general adult medical examination without abnormal findings XR DEXA axial skeleton 04/18/25 M81.0 - Age-related osteoporosis without current pathological fracture
[2025-04-18 09:54] VITALS: BP 130/58; PULSE 61; RESP 16; TEMP 36.7; O2SAT 98; BMI 25.0
--- OUTSIDE RECORDS SUMMARY | 2025-04-18 10:49 | XMS_ITS ---
Author Organization [facility] Address [address] [place] [address] Phone Care Team Providers Care Trauma Counsellor Name Role Phone Unavailable Primary Care Provider [...] weeks Allergic rhinitis 12/02/2016 Asthma 03/09/2016 [place] (myocardial infarction) 03/09/2016 Overview (06/05/2024): NON STEMI 06/28/14 Echo normal / stress test 08/18/14 Follows with [place] [facility] Type 2 diabetes mellitus wit h cataract ([facility]/HCC V24, [facility]/HCC V28) 03/09/2016 Overview (06/05/2024): Dx'd in 1996; Endo @ [facility] Venous insufficiency of both lower extremities [...]
--- OUTSIDE RECORDS SUMMARY | 2025-04-18 10:49 | XMS_ITS | Clinical Summary ---
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 Name Role Phone Unavailable Primary Care Provider [...] Infiltrating ductal carcinom a of breast, right ([facility] V24, [facility] V28) 09/18/2024 Infiltrating lobular carcino ma of breast, stage 1, left ([facility] V24, [facility] V28) 09/18/2024 Abnormal iron saturation 06/05/2024 [...] weeks Allergic rhinitis 12/02/2016 Asthma 03/09/2016 Old [place] (myocardial infarction) 03/09/2016 Overview (06/05/2024): NON STEMI 06/28/14 Echo normal / stress test 08/18/14 Follows with [facility] Type 2 diabetes mellitus wit h cataract ([facility] V24, [facility] V28) 03/09/2016 Overview (06/05/2024): Dx'd in 1996; Endo @ [facility] Venous insufficiency of both lower extremities 0 03/09/2016 Vitamin D deficiency 03/09/2016 Depression 12/01/2015 Essential hypertension 12/01/2015 Gastroesophageal reflux disease without esophagi tis 12/01/2015 Encounters Date Type Department Care Team Description 04/11/2025 10:59 AM EDT - 04/11/2025 11:59 PM EDT Hospital Encounter [facility] Radiation Oncology [address] [place] [address] Abril Krishnamurthy NP Infiltrating ductal carcinoma of breast, right (CMS/HCC V24, CMS/HCC V28) (Primary Dx); Infiltrating lobular carcinoma of breast, stage 1, left (CMS/HCC V24, CMS/HCC V28) Discharge Disposition: Home or Self Care 04/10/2025 10:45 AM EDT Office Visit [facility] Hematology Oncology [address] [place] [phone] Erasto Santana MD Infiltrating ductal carcinoma of breast, right (CMS/HCC V24, CMS/HCC V28) (Primary Dx); Infiltrating lobular carcinoma of breast, stage 1, left ([facility]/HCC V24, CMS/HCC V28) 03/20/[address] [facility] Hematology Oncology [address] [place] [phone] Erasto Santana MD 03/18/2025 11:15 AM EDT Office Visit [facility] Hematology Oncology [address] [place] [phone] Erasto Santana MD Infiltrating ductal carcinoma of breast, right (CMS/HCC V24, CMS/HCC V28) (Primary Dx); Infiltrating lobular carcinoma of breast, stage 1, left ([facility]/HCC V24, CMS/HCC V28) 03/03/[address] [facility] Hematology Oncology [address] [place] [phone] Juanis Ramirez [place] 02/24/2025 9:15 AM EDT Office Visit General Surgery - [place] [address] [phone] Jalen Ferguson MD History of partial mastectomy of both breasts (Primary Dx); Infiltrating lobular carcinoma of breast, stage 1, left (CMS/HCC V24, CMS/HCC V28); Infiltrating ductal carcinoma of breast, right (CMS/HCC V24, CMS/HCC V28) 02/19/2025 9:20 AM EDT - 02/19/2025 11:59 PM EDT Hospital Encounter [facility] Bone Density [address] [place] [phone] Osteoporosis, unspecified osteoporosis type, unspecified pathological fracture presence; Encounter for osteoporosis screening in asymptomatic postmenopausal patient; Osteopenia after menopause Discharge Disposition: Home or Self Care 02/12/2025 11:06 AM EDT - 02/12/2025 11:59 PM EDT Hospital Encounter [facility] Radiation Oncology [address] [place] [phone] Abril Krishnamurthy NP Infiltrating lobular carcinoma of breast, stage 1, left (CMS/HCC V24, CMS/HCC V28) (Primary Dx) Discharge Disposition: Home or Self Care 02/12/2025 10:30 AM EDT Office Visit [facility] Hematology Oncology [address] [place] [phone] Erasto Santana MD Infiltrating ductal carcinoma of breast, right (CMS/HCC V24, CMS/HCC V28) (Primary Dx); Infiltrating lobular carcinoma of breast, stage 1, left (CMS/HCC V24, CMS/HCC V28) 02/05/2025 9:10 AM EDT - 02/05/2025 11:59 PM EDT Hospital Encounter [facility] Radiation Oncology [address] [place] [phone] Abril Krishnamurthy NP Discharge Disposition: Home or Self Care 02/05/2025 8:47 AM EDT - 02/05/2025 11:59 PM EDT Hospital Encounter [facility] Radiation Oncology [address] [place] [phone] Discharge Disposition: Home or Self Care 02/04/2025 8:51 AM EDT - 02/04/2025 11:59 PM EDT Hospital Encounter [facility] Radiation Oncology [address] [place] [phone] Discharge Disposition: Home or Self Care 02/03/2025 8:54 AM EDT - 02/03/2025 11:59 PM EDT Hospital Encounter [facility] Radiation Oncology [address] [place] [phone] Discharge Disposition: Home or Self Care 01/31/2025 10:33 AM EDT - 01/31/2025 11:59 PM EDT Hospital Encounter [facility] Radiation Oncology [address] [place] [phone] Pierre Peoples MD Infiltrating ductal carcinoma of breast, right (CMS/HCC V24, CMS/HCC V28) (Primary Dx) Discharge Disposition: Home or Self Care 01/31/2025 10:30 AM EDT - 01/31/2025 11:59 PM EDT Hospital Encounter [facility] Radiation Oncology [address] [place] [phone] Pierre Peoples MD Discharge Disposition: Home or Self Care 01/31/2025 9:41 AM EDT - 01/31/2025 11:59 PM EDT Hospital Encounter [facility] Radiation Oncology [address] [place] [phone] Discharge Disposition: Home or Self Care 01/30/2025 8:47 AM EDT - 01/30/2025 11:59 PM EDT Hospital Encounter [facility] Radiation Oncology [address] [place] [phone] Discharge Disposition: Home or Self Care 01/29/2025 8:43 AM EDT - 01/29/2025 11:59 PM EDT Hospital Encounter [facility] Radiation Oncology [address] [place] [phone] Discharge Disposition: Home or Self Care 01/29/2025 7:21 AM EDT - 01/29/2025 11:59 PM EDT Hospital Encounter [facility] Radiation Oncology [address] [place] [phone] Discharge Disposition: Home or Self Care 01/28/2025 8:57 AM EDT - 01/28/2025 11:59 PM EDT Hospital Encounter [facility] Radiation Oncology [address] [place] [phone] Discharge Disposition: Home or Self Care 01/27/2025 9:05 AM EDT - 01/27/2025 11:59 PM EDT Hospital Encounter [facility] Radiation Oncology [address] [place] [phone] Pierre Peoples MD Infiltrating ductal carcinoma of breast, right (CMS/HCC V24, CMS/HCC V28) Discharge Disposition: Home or Self Care 01/27/2025 8:45 AM EDT - 01/27/2025 11:59 PM EDT Hospital Encounter [facility] Radiation Oncology [address] [place] [phone] Discharge Disposition: Home or Self Care 01/24/2025 9:02 AM EDT - 01/24/2025 11:59 PM EDT Hospital Encounter [facility] Radiation Oncology [address] [place] [phone] Cynthia Cuba MD Infiltrating ductal carcinoma of breast, right (CMS/HCC V24, CMS/HCC V28) (Primary Dx) Discharge Disposition: Home or Self Care 01/24/2025 8:47 AM EDT - 01/24/2025 11:59 PM EDT Hospital Encounter [facility] Radiation Oncology [address] [place] [phone] Discharge Disposition: Home or Self Care 01/23/2025 8:40 AM EDT - 01/23/2025 11:59 PM EDT Hospital Encounter [facility] Radiation Oncology [address] [place] [phone] Discharge Disposition: Home or Self Care 01/22/2025 8:52 AM EDT - 01/22/2025 11:59 PM EDT Hospital Encounter [facility] Radiation Oncology [address] [place] [phone] Discharge Disposition: Home or Self Care 01/21/2025 8:47 AM EDT - 01/21/2025 11:59 PM EDT Hospital Encounter [facility] Radiation Oncology [address] [place] [phone] Discharge Disposition: Home or Self Care 01/20/2025 8:35 AM EDT - 01/20/2025 11:59 PM EDT Hospital Encounter [facility] Radiation Oncology [address] [place] [phone] Discharge Disposition: Home or Self Care 01/20/2025 [facility] 175 [facility] [address] [phone] Hari Baer MD 01/17/2025 9:01 AM EDT - 01/17/2025 11:59 PM EDT Hospital Encounter [facility] Radiation Oncology [address] [place] [phone] Cynthia Cuba MD Infiltrating ductal carcinoma of breast, right (CMS/HCC V24, CMS/HCC V28) (Primary Dx) Discharge Disposition: Home or Self Care 01/17/2025 8:47 AM EDT - 01/17/2025 11:59 PM EDT Hospital Encounter [facility] Radiation Oncology [address] [place] [phone] Discharge Disposition: Home or Self Care 01/16/2025 8:37 AM EDT - 01/16/2025 11:59 PM EDT Hospital Encounter [facility] Radiation Oncology [address] [place] [phone] Discharge Disposition: Home or Self Care from [...] older (Afluria) 3 years and older 03/18/2016 [employer] SARS-CoV-2 COVID -19, vector-nr, rS-Ad26, preservative free 09/22/2020 [employer] SARS-CoV-2 COVID-19, mRNA, LNP-S, preservative free 07/06/2021 [...] phlebectomy COLONOSCOPY 12/12/2006 PROCEDURE: HISTORICAL COLONOSCOPY; COMMENT: [email or web address]; normal screening exam, not difficult. COLONOSCOPY W/ POLYPECTOMY 12/12/2016 PROCEDURE: [place] COLSC FLX W/RMVL OF TUMOR POLYP LESION [...] a Exertional asthma 12/01/2015 DX:Exertional asthma [place] (myocardial infarction) 03/09/2016 D X:Old [place] (myocardial infarction); COMMENT: NON STEMI 06/28/14 / stress test 08/18/14 Venous insufficiency of both lower extremities 03/09/2016 DX:Venous insufficiency of b oth lower extremities; COMMENT: EVLT 2014/ Dr Mohan Benedict Type 2 diabetes mellitus wit h cataract ([facility] V24, [facility] V28) 03/09/2016 DX:Type 2 diabetes mellitus with cataract (HCC); COMMENT: OU Varicose veins 03/09/2016 DX:Varicose vein s Atrial fibrillation ([facility] V24, [facility] V28) 03/09/2016 DX:Atrial fibrillation (HCC) 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 Hematology Oncology [address] [place] [phone] Erasto Santana MD [address] [place] [phone] 08/25/2025 10:00 AM EDT Office Visit General Surgery [facility] 175 [facility] [address] [place] [address] Jalen Ferguson MD [address] [place] [phone] Health Maintenance Due Date Last [...] Td or Tdap) 08/12/2024 08/12/2014 COVID-19 Vaccine ( - season) 2025 03/21/2023, 07/06/2021, 09/22/2020 Influenza [...] this topic Medical Devices Implanted Type Area Cement Based Materials Pump Tender Device Identifier Shelf Expiration Date Model / Serial / Lot Marker Brst Biopsy Site Hydromark - [id number] Implanted:Qty: 1 on 09/05/2024 by Marina May MD at [facility] Breast Implants Right: Breast DEVICOR [employer] [id number] 12/31/2026 4010-05-1 0-T1 / / [id number] D Hemostat Flour Collgn 1gm Avitene - Sna - [id number] Implanted:Qty: 1 on 10/29/2024 by Jalen Ferguson MD at [facility] Hemostasis Left: Breast CR BARD - DAVOL DIV [id number] 06/15/2027 [id number] / NA / [id number] Hemostat Flour Collgn 1gm Avitene - Sna - [id number] Implanted:Qty: 1 on 10/29/2024 by Jalen Ferguson MD at [facility] Hemostasis Right: Breast CR BARD - DAVOL DIV [id number] 06/15/2027 [id number] / NA / [id number] Marker Hydromark 15g Butterfly T4 Ti - [id number] - [id number] Implanted:Qty: 1 on 08/26/2024 by Moses Basurto MD at [facility] Imaging Implants Left: Breast DEVICOR MED PROD MAMMOTOME [id number] 04/30/2027 4010-02-1 5-T4 / [id number] / [id number] D Marker 18ga Magseed 7cm - [id number] - [id number] Implanted:Qty: 2 on 09/27/2024 by Moses Basurto MD at [facility] Imaging Implants N/A: Breast DEVICOR [employer] [id number] 12/16/2025 [id number] / [id number] / [id number] Description:BILATERAL Procedures Procedure Name Priority Date/Time Associated [...] TREATMENT SUMMARY Routine 01/16/2025 8:59 AM EDT MG MAMMO DIGITAL DIAGNOSTIC POST [...] probability of hip fracture of 0.7%. Code 89998 -------- FINAL REPORT -------- Dictated By: Donnell Gant Dictated Date: 02/19/2025 09:51 ET Assigned Physician: Donnell Gant Reviewed and Electronically Signed By: Donnell Gant Signed Date: 02/19/2025 09:52 ET Workstation ID: [id number] Transcribed By: Self Edit Transcribed Date: 02/19/2025 [...] density of the femurs bilaterally is 1.011 gm/hp5fjdep is 100% of that of young normals [...] probability of hip fracture of 0.7%. Code 43386 -------- FINAL REPORT -------- Dictated By: Donnell Gant Dictated Date: 02/19/2025 09:51 ET Assigned Physician: Donnell Gant Reviewed and Electronically Signed By: Donenll Gant Signed Date: 02/19/2025 09:52 ET Workstation ID: [id number] Transcribed By: Self Edit Transcribed Date: 02/19/2025 09:51 ET Iris Olguin MD IM DXA PROCEDURES Final Res ult * Rad [...] 1,000 cGray MOSAIQ RADIATION ONCOLOGY Prescribed Technique PALAUAN/RPO MOSAIQ RADIATION ONCOLOGY Elapsed Days 5 MOSAIQ [...] 1,000 cGray MOSAIQ RADIATION ONCOLOGY Prescribed Technique KONG,LPO,PALAUAN MOSAIQ RADIATION ONCOLOGY Elapsed Days 5 MOSAIQ RADIATION ONCOLOGY Start Date 01/31/2025 MOSAIQ RADIATION ONCOLOGY Last Date 02/05/2025 MOSAIQ RADIATION ONCOLOGY Prescribed Number of Fractions 4 MOSAIQ RADIATION ONCOLOGY 02/05/2025 9:10 AM EDT Physician Radiation Oncology MD RADIATION [...] 750 cGray MOSAIQ RADIATION ONCOLOGY Prescribed Technique PALAUAN/RPO MOSAIQ RADIATION ONCOLOGY Elapsed Days 4 MOSAIQ [...] 750 cGray MOSAIQ RADIATION ONCOLOGY Prescribed Technique OKNG,LPO,PALAUAN MOSAIQ RADIATION ONCOLOGY Elapsed Days 4 MOSAIQ [...] 500 cGray MOSAIQ RADIATION ONCOLOGY Prescribed Technique PALAUAN/RPO MOSAIQ RADIATION ONCOLOGY Elapsed Days 3 MOSAIQ [...] 500 cGray MOSAIQ RADIATION ONCOLOGY Prescribed Technique KONG,LPO,PALAUAN MOSAIQ RADIATION ONCOLOGY Elapsed Days 3 MOSAIQ [...] 250 cGray MOSAIQ RADIATION ONCOLOGY Prescribed Technique PALAUAN/RPO MOSAIQ RADIATION ONCOLOGY Elapsed Days 0 MOSAIQ [...] 250 cGray MOSAIQ RADIATION ONCOLOGY Prescribed Technique KONG,LPO,PALAUAN MOSAIQ RADIATION ONCOLOGY Elapsed Days 0 MOSAIQ RADIATION ONCOLOGY Start Date 01/31/2025 MOSAIQ RADIATION ONCOLOGY Last Date 01/31/2025 MOSAIQ RADIATION ONCOLOGY Prescribed Number of Fractions 4 MOSAIQ RADIATION ONCOLOGY 01/31/2025 10:3 3 AM EDT us Physician Radiation Oncology MD [...] 01/28/2025 9:07 AM EDT Physician Radiation Oncology MD [...] MOSAIQ RADIATION ONCOLOGY 01/23/2025 9:04 AM EDT us Physician Radiation Oncology [...] 8:59 AM EDT Physician Radiation Oncology RADIATION ONCOLO [...] Signed Date: 09/16/2024 12:24 ET Workstation ID: [id number] Transcribed By: Self Edit Transcribed Date: 09/16/2024 [...] Signed Date: 09/06/2024 14:37 ET Workstation ID: [id number] Transcribed By: Self Edit Transcribed Date: 09/05/2024 [...] left the department in good condition. Result [facility] Cedric Friedman PRODUCT DIRECTOR IMG BI PROCEDURES Edited Resul t - Final * Annual BMP Blood Test (09/02/2021) Pathologist [facility] Annual BMP Blood Test abstracted Result [facility] Provider HEALTH MAINTENANCE Final Result * (ABNORMAL) Hemoglobin A1c (09/02/2021) [facility] Hemoglobin A1C 7.1(A) <=6.5 % Blood Venous blood specimen / Unknown Result [facility] Provider LAB BLOOD ORDERABLES Marianela l Result * Lipid panel (06/21/2021) [facility] LDL/HDL Ratio 2 0 - 4 Triglycerides 66 0 - 150 mg/dL Cholesterol 188 0 - 200 mg/dL HDL 77 >=40 mg/dL LDL Cholesterol 98 0 - 150 mg/dL Blood Venous blood specimen / Unknown Result [facility] Provider LAB BLOOD ORDERABLES Marianela l Result * Urine Albumin Creatinine Ratio (03/31/2021) [facility] Urine Albumin Creatinine Ratio abstracted Result [facility] Provider HEALTH MAINTENANCE Final Result * Hepatitis C Screening (12/06/2017) [facility] Hepatitis C Screening abstracted Result [facility] Provider HEALTH MAINTENANCE Final Result from Last 3 Months or Most Recently Relevant to Health Maintenance Insurance [facility] MEDICARE Member Subscriber Plan / Payer (Ef fective 2021-Present) Name:Yenny Miller Relation to Subscriber:Self Name:Yenny Miller Payer ID:[id number] Group ID:[id number] Type:Not on file Address: [address] [place] [phone] MEDICA[place] - [place]
--- OUTSIDE RECORDS SUMMARY | 2025-04-18 10:49 | XMS_ITS | Data Portability ---
Author Organization [facility] Ship It Bag Check [facility], [facility] Address [address] [place] [phone] Care Team Providers Care Substation Technician Name Role Phone HIM CCA OTHER Assessment No assessment recorded. Plan of Treatment Reminders Order Date Submit Date Provider Last Modified By Organization Details Last Modified Time Details Appointments None recorded. Lab hemoglobin + hematocrit, blood [address], [phone] 4 12:08:05 BMP, serum or plasma [address], [phone] 4 12:08:06 Referral None recorded. Procedures None recorded. Surgeries None recorded. Imaging electrocard iogram [address], [address] 4 12:08:04 Medication Orders None recorded. Patient TargetsNo targets recorded. Patient Instructions Encounter Date Encounter Id Patient Instructions Last Modified By Organization Details Last Modified Time 01/03/2024 [id number] orthostatic vitals* JENNA Not available 01/05/2025 05:02:00 Reason for Referral None Reported. Results Created Date Observation Date Name Description Value Unit Range Abnormal Flag Note LastModifiedBy Organization Detail LastModifiedTime 01/03/2001/03/2024 BMP, serum or plasm a CRE 0.8 Not Available [facility] [address], [phone] 01/03/2024 11:53:39 01/03/20 24 01/03/2024 BMP, serum or plasm a GLU 149 Not Available [facility] [address], [address] 01/03/2024 11:53:39 01/03/20 24 01/03/2024 BMP, serum or plasm a K+ 4.4 Not Available [facility] [address], [phone] 01/03/2024 11:53:39 01/03/20 24 01/03/2024 BMP, serum or plasm a Na+ 135 Not Available [facility] [address], [address] 01/03/2024 11:53:39 01/03/20 24 01/03/2024 hemog lobin + hemat ocrit , blood Hemoglobin 15.3 Not Available [facility] - [address], [phone] 01/03/2024 11:53:33 01/03/20 24 01/03/2024 hemog lobin + hemat ocrit , blood Hematocrit 45 Not Available [address], [phone] 01/03/2024 11:53:33 01/03/20 24 01/03/2024 ramírez walter am No observ ation record ed. jaron [address], [address] 01/03/2024 12:08:03 Result Notes None recorded. Medical Equipment None Reported. Allergies Allergen ID Allergen Name Allergen Category Reaction Reaction Severity Criticality Documentation Date Start Date Code Code System Note Provider Name and Address Organization Details Recorded Time 03528 acetamino phen / oxycodone medicatio n Not available Not available Not available 07/17/2024 81284 3 RxNorm Not Available [facility] - production 5 09:49:30 8874 Product containin g penicilli n (product) medicatio n Not available Not available Not available 04/16/2024 53300 8001 SNOMED Not Available [facility] - production [...] ONCE DIRECTED BY [facility] active Not Available Not Available No [...] Body height Body weight Heart rate Systolic And Diastolic Systolic And Diastolic Provider Name and Address Organization Details Last Updated DateTime 4 52 /min 97 % 97 % 97.2 [degF] 16 /min 172.72 cm 61369.8 64 g 56 /min 150/80 mm[Hg] 130/78 mm[Hg] Not Available [employer] [facility] - production 4 11:54:25 Date Recorded Heart rate Body temperature Respiratory rate Oxygen saturation Oxygen saturation in Arterial blood by Pulse oximetry Systolic And Diastolic Provider Name and Address Organization Details Last Updated DateTime 4 70 /min 96.9 [degF] 16 /min 97 % 97 % 148/81 mm[Hg] Not Available [facility] - production 4 11:31:00 Social History None recorded. Functional Status None recorded. Mental Status None recorded. Family History Nothing Reported. Medical History No medical history recorded. Gynecological HistoryNo gynecological history recorded. Obstetrics History GPAL:G 0 P 0 0 0 0 Past Encounters Encounter ID Performer Location Encounter Start Date Encounter Closed Date Diagnosis/Indication Diagnosis SNOMED-CT Code Diagnosis ICD10 Code Diagnosis IMO Codes Diagnosis Note [id number] Madelyn Flores MD [facility] - [facility] [address] [place] [phone] 01/03/2024 11:38:46 01/03/2024 22:15:23 Headache 88369134 R51.9 As noted, we were called to see this patient regarding concerns of dizziness and headache. Evaluation in the field was performed by my picker tender colleague, as noted above, I provided real-time [...] Recorded Advance Directives Directive None Recorded Payers Insurance Date Sequence Insurance Name Policy Number Policy Díaz Covered Member ID Díaz Member ID Guarantor Name 04/08/2024 1 [facility] - DOS ON OR AFTER 2022 - DUAL ELIGIBLE - [employer] OPTIONS AND ONE [employer] (MEDICARE REPLACEMENT/ADV ANTAGE - HMO) Mary Miller [id number] Mary Miller Notes Date Note Type Note [...] breath. Denies bleeding or blood in stool. Interactive Graphic Designer POC Test Results from [facility] - [facility] iSTAT Chem8+ (13:15:45) Na: 135 mEq/L K: 4.4 mEq/L Cl: 97 mEq/L iCa: 1.20 mmol/L TCO2: 31 mmol/L Glu: 149 mg/dL BUN: 14 mg/dL Crea: 0.8 mg/dL Hct: 45 % Hb: 15.3 g/dL A .................. .................. .................. .................. .................. .................. .................. ............... Interactive Graphic Designer Note From [facility]oy Garcia: Smartcare visit for [...] no other findings. 12 lead [place] [facility] Dr. Flores who ordered BMP. Blood drawn and BMP completed and sent for review. Pt encouraged to follow up with PCP about possible titration of metoprolol and red flags reviewed for worsening headache. Patient education provided. .................. .................. .................. .................. .................. .................. .................. ............... Disposition: Fulfilled Madelyn Flores MD [address] [place] [address],[address], [place], [phone], [facility] - [employer], [facility] 01/03/2024 13:30:49 OBGyn Episode No OBEpisode recorded.
== END 2025-04-18 11:18 | disposition home or self-care (01) ==
LOC: HO.HMCFM 09:41
PROVIDERS: PCP Nurse Practitioner Family; Visit Provider Nurse Practitioner Family
DX: Z00.00 Encounter for general adult medical examination without abnormal findings (principal)

== ENCOUNTER → 2025-04-18 09:40 | Outpatient (BNVA) | payer OTHER, SELFPAY | PROVIDERS: PCP Nurse Practitioner Family; Visit Provider Nurse Practitioner Family | DX: Z00.00 Encounter for general adult medical examination without abnormal findings (principal); Z23 Encounter for immunization | CPT/HCPCS: 90471; 90472; 90656; 90715; 96127; 96160; 99397 ==

== ENCOUNTER 2025-05-29 14:16 | Outpatient (REF) | payer OTHER, SELFPAY ==
[2025-05-29 18:21] LABS: Alanine Aminotransferase 26 U/L (0-31); Albumin Level 4.3 g/dL (3.5-5.0); Alkaline Phosphatase 48 U/L (39-117); Anion Gap 10 (12-20); Aspartate Amino Transferase 30 U/L (5-31); Blood Urea Nitrogen 12 mg/dL (9-16); Calcium 8.9 mg/dL (8.4-10.2); Carbon Dioxide 27 mmol/L (22-29); Chloride 101 mmol/L (96-108); Estimated Glomerular Filt Rate > 60; Iron 41 mcg/dL (30-160); Percent Iron Saturation 12 % (15-50); Potassium 4.4 mmol/L (3.3-5.1); Sodium 134 mmol/L (135-145); Total Iron Binding Capacity 339 mcg/dL (228-428); Total Protein 7.3 g/dL (6.5-8.0); Unsaturated Iron Binding 298 ug/dL
[2025-05-29 18:24] LABS: Hematocrit 37.2 % (37.0-47.0); Hemoglobin 11.9 g/dl (12.0-16.0); Mean Corpuscular HGB Conc 32.0 g/dl (31.0-35.0); Mean Corpuscular Hemoglobin 26.8 pg (27.0-33.0); Mean Corpuscular Volume 83.8 fL (80.0-98.0); NRBC Abs Auto 0.000 X10*3/uL (0.0-0.012); NRBC Pct Auto 0.0 /100WBC (0.0-0.2); Platelet Count 265 X10*3/uL (160-400); Red Blood Count 4.44 X10*6/uL (4.20-5.50); White Blood Count 8.8 X10*3/uL (4.8-10.8)
[2025-05-29 18:29] LABS: Microalbum/Creatinine Ratio Ur 9.1 ug/mg cr (<30)
[2025-05-29 18:43] LABS: Vitamin B12 226 pg/mL (200-900)
[2025-06-02 11:58] LABS: Vitamin D 25-OH, D2 <4 ng/mL; Vitamin D 25-OH, D3 45 ng/mL; Vitamin D 25-OH, Total 45 ng/mL (30-100)
== END 2025-05-29 14:17 | disposition home or self-care (01) ==
LOC: HO.WFDLDS 14:16
PROVIDERS: PCP Nurse Practitioner Family; Visit Provider Physician Assistant Medical
DX: E11.65 Type 2 diabetes mellitus with hyperglycemia (principal); Z79.4 Long term (current) use of insulin; E01.0 Iodine-deficiency related diffuse (endemic) goiter; I10 Essential (primary) hypertension; I48.91 Unspecified atrial fibrillation; E78.5 Hyperlipidemia, unspecified; E55.9 Vitamin D deficiency, unspecified; E53.8 Deficiency of other specified B group vitamins
CPT/HCPCS: 36415; 80053; 82043; 82306; 82570; 82607; 83036; 83540; 84443; 85027; 99212

== ENCOUNTER 2025-05-29 14:16 | Outpatient (AMB) | payer OTHER, SELFPAY ==
--- OUTSIDE RECORDS SUMMARY | 2025-05-23 23:59 | XMS_ITS | Continuity of Care Document ---
Author Organization [facility] Address [address] [place] [address]- Care Team Providers Care Office Services Coordinator Name Role Phone Leandro Perez MD Primary Care Physic sweetie [id number]/23[facility]25 - 05/23/25 [facility] [address] [place] [address]- Attending Physician: Leandro Perez MD Encounter Type: Pre Office Visit Allergies, Adverse Reactions, Alerts Substance Criticality Severity Reaction Reaction Severity Status morphine Nausea Active penicillins HIVES Active Percocet 7.5 HIVES Act leslie Kiwi Active Xultophy Pruritus Active Immunizations Given and Recorded Vaccine Date Status Refusal Reason influenza virus vaccine, inactivated 07/19/24 Give n influenza virus vaccine, inactivated 03/14/23 Terell rded influenza virus vaccine, inactivated 1 05/02/22 Gi heather influenza virus vaccine, inactivated 04/05/21 Terell rded influenza virus vaccine, inactivated 06/11/20 Terell rded influenza virus vaccine, inactivated 04/25/19 Terell rded influenza virus vaccine, inactivated 03/21/18 Terell rded influenza virus vaccine, inactivated 03/18/16 Terell rded SARS-CoV-2(COVID-19)mRNA-LNP vac([id number]) 03/21/23 Recorded pneumococcal 13-valent vaccine 07/08/21 Recorded SARS-CoV-2 (COVID-19) mRNA BNT-162b2 vac 07/06/21 Recorded SARS-CoV-2 (COVID-19) Ad26 vaccine 09/22/20 Record ed pneumococcal 23-valent vaccine 03/18/15 Recorded tetanus/diphtheria/pertussis, acel(Tdap) 08/12/14 Recorded 1Result Comment: [facility] [id number] Medications amLODIPine 10 mg oral tablet 1 tablet = 10 mg, By Mouth, Daily, # 90 tablet, 3 Refills, Maintenance, 01/20/25 10:49:00 AM EDT, Tablet, Partial fill upon patient request if the prescription is for a schedule II opioid drug. Start Date: 01/20/25 Status: Ordered Medication Dispense Status: Completed Quantity: 90.0 Unit: tablet Total Allowed Fills: 4 Fills Dispensed: 0 D3 1000 intl units (25 mcg) oral tablet 1 tablet, By Mouth, Daily, # 90 tablet, 1 Refills, Maintenance, 12/19/22 10:27:00 AM EDT, [id number], 172, cm, 08/05/22 23:57:00 EST, Height, 74.5, kg, 08/05/22 23:57:00 EST, Dry Weight Start Date: 12/19/22 Status: Ordered Medication Dispense Status: Completed Quantity: 90.0 Unit: tablet Total Allowed Fills: 1 Fills Dispensed: 0 fluticasone 50 mcg/inh nasal spray 16 Gm, 0 Refill(s), 1 SPRAY INTRANASALLY DAILY. ADMINISTER INTO EACH NOSTRIL, 0 Refills, 10/18/24 11:11:00 AM EDT, Partial fill upon patient request if the prescription is for a schedule II opioid drug. Start Date: 10/18/24 Status: Ordered Medication Dispense Status: Completed Total Allowed Fills: 1 Fills Dispensed: 0 Januvia 50 mg oral tablet 1 tablet = 50 mg, By Mouth, Daily, # 30 tablet, 5 Refills, Maintenance, 02/06/25 3:40:00 PM EDT, Tablet, [facility] #[id number], Partial fill upon patient request if the prescription is for a schedule II opioid drug., 160, cm, 01/30/25 21:53:00 EDT, Height, 75.7, kg, 01/30/25 21:53:00 EDT, Dry Weight Start Date: 02/06/25 Status: Ordered Medication Dispense Status: Completed Quantity: 30.0 Unit: tablet Total Allowed Fills: 6 Fills Dispensed: 0 Lantus Solostar Pen 100 units/mL subcutaneous solution See Instructions, INJECT 25 UNITS SUBCUTANEOUS INJECTION DAILY, # 15 Unknown, 5 Refills, Maintenance, 03/17/23 6:35:00 PM EDT, [id number], 172, cm, 08/05/22 23:57:00 EST, Height, 74.5, kg, 08/05/22 23:57:00 EST, Dry Weight Start Date: 03/17/23 Status: Ordered Medication Dispense Status: Completed Quantity: 15.0 Unit: Unknown Total Allowed Fills: 1 Fills Dispensed: 0 Letrozole = 2.5 mg, By Mouth, Daily, 0 Refills, Maintenance, 03/05/25 11:03:00 AM EDT, Partial fill upon patient request if the prescription is for a schedule II opioid drug. Start Date: 03/05/25 Status: Ordered Medication Dispense Status: Completed Total Allowed Fills: 1 Fills Dispensed: 0 losartan 100 mg oral tablet 1 tablet, By Mouth, Daily, # 90 tablet, 1 Refills, Maintenance, 12/19/22 10:27:00 AM EDT, [id number], 172, cm, 08/05/22 23:57:00 EST, Height, 74.5, kg, 08/05/22 23:57:00 EST, Dry Weight Start Date: 12/19/22 Status: Ordered Medication Dispense Status: Completed Quantity: 90.0 Unit: tablet Total Allowed Fills: 1 Fills Dispensed: 0 metFORMIN 500 mg oral tablet 2 tablet = 1,000 mg, By Mouth, 2 times a day, # 60 tablet, 0 Refills, Maintenance, 01/02/24 3:02:00 AM EDT, Tablet, Partial fill upon patient request if the prescription is for a schedule II opioid drug. Start Date: 01/02/24 Status: Ordered Medication Dispense Status: Completed Quantity: 60.0 Unit: tablet Total Allowed Fills: 1 Fills Dispensed: 0 Metoprolol Tartrate 25 mg oral tablet See Instructions, TAKE 1 TABLET BY MOUTH TWICE A DAY, # 180 tablet, 3 Refills, Maintenance, 01/20/25 10:52:00 AM EDT, [facility] Start Date: 01/20/25 Status: Ordered Medication Dispense Status: Completed Quantity: 180.0 Unit: tablet Total Allowed Fills: 4 Fills Dispensed: 0 omeprazole 20 mg oral enteric coated capsule 2 capsule = 40 mg, By Mouth, Daily, # 28 capsule, 0 Refills, Maintenance, 08/06/22 12:51:00 AM EST, EC Capsule, [id number], Partial fill upon patient request if the prescription is for a schedule II opioid drug., 172, cm, 08/05/22 23:57:00 EST, Height, 74.5, kg, 08/05/22 23:57:00 EST, Dry Weight Start Date: 08/06/22 Stop Date: 08/20/22 Status: Ordered Medication Dispense Status: Completed Quantity: 28.0 Unit: capsule Total Allowed Fills: 1 Fills Dispensed: 0 ONE TOUCH VERIO TEST STRIP ONE TOUCH VERIO TEST STRIP, See Instructions, # 100 Unknown, 1 Refills, Maintenance, USE TO TEST BLOOD SUGAR DAILY, 10/11/22 3:54:00 PM EDT, 172, cm, 08/05/22 23:57:00 EST, Height, 74.5, kg, 08/05/22 23:57:00 EST, Dry Weight Start Date: 10/11/22 Status: Ordered Medication Dispense Status: Completed Quantity: 100.0 Unit: Unknown Total Allowed Fills: 1 Fills Dispensed: 0 OneTouch Verio Test Strips See Instructions, # 200 each, Refills 3, Tot. Refills 3, Maintenance, Use to check glucose twice daily Dx:E11.9, 08/10/22 11:14:00 AM EST, Supply, 172, cm, 08/05/22 23:57:00 EST, Height, 74.5, kg, 08/05/22 23:57:00 EST, Dry Weight Start Date: 08/10/22 Status: Ordered Medication Dispense Status: Completed Quantity: 200.0 Unit: each Total Allowed Fills: 4 Fills Dispensed: 0 ProAir HFA 90 mcg/inh inhalation aerosol with adapter 2, puffs, Inhalation, 4 times a day, PRN, # 8.5 Gm, Refills 0, Maintenance, 05/02/19 12:34:25 PM EST, Aerosol Start Date: 05/02/19 Status: Ordered Medication Dispense Status: Completed Quantity: 8.5 Unit: g Total Allowed Fills: 1 Fills Dispensed: 0 Vitamin B12 50 mcg oral tablet 1 tablet = 50 mcg, By Mouth, Daily, # 30 tablet, 0 Refills, Maintenance, 05/26/20 12:30:00 PM EST, Tablet, Partial fill upon patient request if the prescription is for a schedule II opioid drug. Start Date: 05/26/20 Status: Ordered Medication Dispense Status: Completed Quantity: 30.0 Unit: tablet Total Allowed Fills: 1 Fills Dispensed: 0 Vitamin C 500 mg oral tablet 1 tablet = 500 mg, By Mouth, Daily, # 90 tablet, 0 Refills, Maintenance, 10/20/21 3:00:00 PM EDT, Tablet, Partial fill upon patient request if the prescription is for a schedule II opioid drug. Start Date: 10/20/21 Status: Ordered Medication Dispense Status: Completed Quantity: 90.0 Unit: tablet Total Allowed Fills: 1 Fills Dispensed: 0 Xarelto 20 mg oral tablet 1 tablet = 20 mg, By Mouth, Daily in PM, # 30 tablet, 0 Refills, Maintenance, 07/16/24 4:35:00 AM EST, Tablet, Partial fill upon patient request if the prescription is for a schedule II opioid drug. Start Date: 07/16/24 Status: Ordered Medication Dispense Status: Completed Quantity: 30.0 Unit: tablet Total Allowed Fills: 1 Fills Dispensed: 0 Problem List Condition Confirmation Course Effective Dates Status H ealth Status Informant Drug reaction Confirmed Active Asthma Confirmed Active Hyperglycemia due to diabetes mellitus Confirmed Active Hypertension Confirmed Active HTN (hypertension) Confirmed Active Hypokalemia Confirmed Active Dyspepsia Confirmed Active Syncope, near Confirmed Active Paroxysmal A-fib Confirmed Active DM (diabetes mellitus), type 2 Confirmed Active Social History Social History Type Response Smoking Status Never (less than 100 in lifetime) entered on: 01/13/19 Sexual Orientation Self described orien tation: ; Straight or heterosexual Sex Female Sex Representation Female (finding) Patient Care team information Care Team Personnel Name: Carina Light RN Position: [facility] RN Member Role: Primary Care Nurse Name: Jose Luis Cantu RN Position: S RN Member Role: Primary Care Nurse Name: Shantell Randhawa RN Position: [facility] RN Member Role: Primary Care Nurse Name: Argelia Biggs RN Position: [facility] RN Member Role: Primary Care Nurse Name: Leandro Perez MD Position: [facility] Physician - Primary Care Member Role: PCP Address: [address] [place] [address]- Telecom: Care Team Related Persons Name: MICHELLE MARTÍNEZ Insurance Providers Guarantor name: YENNY KELLYGADO [employer] Plan Information #: 1 Payer[id number] Payer Identifier: NA Member Number: [id number] Group Number: [id number] Subscriber Identifier: [id number] Relationship to Subscriber: self Coverage Type: Medicare Managed Care (Includes Medicare Advantage Plans) Coverage Verification Date: NA Telecom: NA Address: NA
--- OUTSIDE RECORDS SUMMARY | 2025-05-23 23:59 | XMS_ITS | Continuity of Care Document ---
Author Organization [facility] Address [address] [place] [address]- Care Team Providers Care Quality Assurance Advisor Name Role Phone Lucia Strauss MD, Leandro Gould Primary Care Physic sweetie [place] [facility] Date(s): 04/23/25 - 05/23/25 [facility] [address] [place] [address]- Attending Physician: [id number] Admitting Physician: Admtr, Kushal Referring Physician: Admtr, [id number] Encounter Type: Triage Allergies, Adverse Reactions, Alerts Substance Criticality Severity Reaction Reaction Severity Status morphine Nausea Active Xultophy Pruritus Active penicillins HIVES Active Percocet 7.5/325 HIVES Act leslie Kiwi Active Immunizations Given and Recorded Vaccine Date [...] virus vaccine, inactivated 03/18/16 Terell rded SARS-CoV-2(COVID-19)mRNA-LNP vac([id number]) 03/21/23 Recorded pneumococcal 13-valent vaccine 07/08/21 Recorded SARS-CoV-2 (COVID-19) mRNA BNT-162b2 vac 07/06/21 Recorded SARS-CoV-2 (COVID-19) Ad26 vaccine 09/22/20 Record ed pneumococcal 23-valent vaccine 03/18/15 Recorded tetanus/diphtheria/pertussis, acel(Tdap) 08/12/14 Recorded 1Result Comment: [facility] [id number] Medications amLODIPine 10 mg oral tablet 1 [...] Maintenance, 12/19/22 10:27:00 AM EDT, [id number], 172, cm, 08/05/22 23:57:00 EST, Height, 74.5, [...] Refills, Maintenance, 02/06/25 3:40:00 PM EDT, Tablet, [facility]/pharmacy #[id number], Partial fill upon patient request if [...] 5 Refills, Maintenance, 03/17/23 6:35:00 PM EDT, [facility], 172, cm, 08/05/22 23:57:00 EST, Height, 74.5, [...] 1 Refills, Maintenance, 12/19/22 10:27:00 AM EDT, [facility], 172, cm, 08/05/22 23:57:00 EST, Height, 74.5, [...] 3 Refills, Maintenance, 01/20/25 10:52:00 AM EDT, [facility] Start Date: 01/20/25 Status: Ordered Medication Dispense [...] heterosexual Sex Female Sex Representation Female (finding) MG Breast Views * Event Display: MM Mammogram Authored Date: Patient Care team information Care Team Personnel Name: Carina Light RN Position: S RN Member Role: Primary Care Nurse Name: Jose Luis Cantu RN Position: S RN Member Role: Primary Care Nurse Name: Shantell Randhawa RN Position: [facility] RN Member Role: Primary Care Nurse Name: Argelia Biggs RN Position: [facility] RN Member Role: Primary Care Nurse Name: Lucia Strauss MD, Leandro Gould Position: [place] Physician - Primary Care Member Role: PCP Address: [address] [place] [id number] Telecom: Care Team Related Persons Name: MICHELLE MARTÍNEZ Insurance Providers Guarantor name: [employer] Plan Information #: 1 [facility] Payer Identifier: NA Member Number: [id number] Group Number: [id number] Subscriber Identifier: NA Relationship to Subscriber: self Coverage Type: Medicare Managed Care (Includes Medicare Advantage Plans) Coverage Verification Date: NA Telecom: NA Address:
--- OUTSIDE RECORDS SUMMARY | 2025-05-28 11:15 | XMS_ITS | Encounter Summary ---
Author Organization [facility] Address [address] [place] [address] Care Team Providers Care Pattern Assembler Name Role Phone Unavailable Primary Care Provider Unavailabl e Reason for Visit * Reason Comments Follow-up Encounter Details Date Type Department Care Team ([facility] st Contact Info) Description 05/28/2025 11:15 AM EST Office Visit [facility] Hematology Oncology [address] [place] [phone] nAa Taylor PA [address] [place] [address] Infiltrating ductal carcinoma of breast, right (CMS/HCC V24, CMS/HCC V28) (Primary Dx); Infiltrating lobular carcinoma of breast, stage 1, left (CMS/HCC V24, CMS/HCC V28); Rash Social History Tobacco Use Types Packs/Day Years [...] Sign Reading Time Taken Comments Blood Pressure 143/62 05/28/2025 10:49 AM EST Pulse 64 05/28/2025 10:49 AM EST Temperature 36.5 C (97.7 F) 05/28/2025 10:49 AM EST Respiratory Rate - - Oxygen Saturation 99% 05/28/2025 10:49 AM EST Inhaled Oxygen Concentration - - Weight 73.9 kg (163 lb) 05/28/2025 10:49 AM EST Height - - Body Mass Index 24.78 04/11/2025 11:03 AM EDT documented in this encounter Ordered Prescriptions Prescription Sig Dispense Quantity Refills Last Filled Start Date End Date hydrOXYzine HCL (ATARAX) 10 mg tabletIndications: Rash Take 1 tablet (10 mg total) by mouth at bedtime as needed for itching. 10 tablet 05/28/2025 documented in this encounter Progress Notes * JET Kiser - 05/28/2025 11:15 AM EST Hematology/Oncology Consult Note Date of Consult: 05/28/2025 Patient's Primary Care Physician: No primary care provider on file. Subjective History of Present Illness 70-year-old female who presented in 08/2024 with a right-sized stage I invasive ductal breast cancer, ER/AZ-positive, HER2-negative and a synchronous left- /stage I invasive lobular breast cancer ER/AZ-positive, HER2-negative, presenting today for an acute visit with multiple complaints. 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 About 2 weeks ago, a rash started on her arms that is very pruritic, it has spread to most of her body. She denies significant redness but notes that there are tiny bumps scattered throughout her body. She was switched from letrozole to tamoxifen due to a similar rash, other than this she has had no medication changes recently. She is also reporting left breast pain which started about a week ago, she does perform monthly breast exams and does not report any new masses, skin changes, dimpling, nipple discharge or inversion. She also notes swelling in her breasts and bilateral legs, she is unsure when this started. She denies any leg pain, redness, chest pain or dyspnea. Over the past year, she has struggled with low back pain, it is mostly present in the morning when she wakes up and improves throughout the day. She has been taking Tylenol with some pain relief. No dysuria, abdominal pain, nausea or vomiting. She denies unusual bone pain. She reports an intact appetite and stable weight. REVIEW OF SYSTEMS: Constitutional: No unintentional weight loss, +hotflashes, fatigue Respiratory: No cough, shortness of breath Cardiac: No chest pain, palpitations GI: No nausea, vomiting, diarrhea, constipation, abdominal pain : No urinary complaints Skin: see above Neuro: No headaches, dizziness, focal weakness Musculoskeletal: see above Hem/Lymph : No palpable lymph nodes, no bleeding or easy bruising Oncology history: 70-year-old female who underwent a screening mammogram on 07/03/2023 which showed a developing asymmetry in the posterior outer right breast. [...] showed increasing 0.8 cm focal asymmetry in the upper outer quadrant of the right breast. There was an increasing 0.7 cm focal asymmetry in the upper inner quadrantof the left breast. A bilateral breast ultrasound on 07/25/2024 showed a 0.7 x 0.5 x 0.4 cm ill-defined mass in the left breast at 11:00, 13 cm from the nipple and an unremarkable right breast. She underwent an ultrasound- guided biopsy of the left breast lesion on 08/26/2024 and the pathology revealed invasive lobular carcinoma, ER-strongly positive (greater than 95%), AZ- moderately positive (50%), HER2-negative (2+ by IHC; negative by FISH). She underwent a stereotactic biopsy of the right breastfocal asymmetry on 09/13/2024 and the pathology showed invasive ductal carcinoma with mucinous features, ER- strongly positive (95%), AZ-strongly positive (80%), HER2-negative (2+ of IHC; negative [...] tolerable occasional hot flashes and night sweats. Past Medical History Medical History[1] Past Surgical History Surgical History[2] Family History Family History[3] Personal and Social History Tobacco Use History[4] Social History Substance and Sexual Activity Alcohol Use No Social History Substance and Sexual Activity Drug Use No Imaging DEXA 02/19/2025 IMPRESSION: 1. Osteopenia. There has been a decrease of 10.7% in bone mineral density in the lumbar spine sincethe prior examination of 02/15/2016. There has been a decrease of 5.7% in bone mineral density in the right femur and a decrease of 4.5% in bone mineral density in the left femur. 2. FRAX analysis yields a 10-year probability of major osteoporotic fracture of 5.4% and a 10-year probability of hip fracture of 0.7%. Objective Medications Current Medications[5] Allergies Allergies[6] Physical Exam Vitals: 05/28/25 1049 BP: (!) 143/62 BP Location: Left arm Patient Position: Sitting BP Cuff Size: Adult Pulse: 64 Temp: 36.5 ??C (97.7 ??F) TempSrc: Temporal SpO2: 99% Weight: 73.9 kg (163 lb) Body mass index is 24.78 kg/m??. General: no acute distress Eyes: conjunctiva pink and sclera are normal without icterus Oral cavity: No erythema or exudates Neck Neck supple, no adenopathy, Lymph: No palpable cervical, supraclavicular or axillary adenopathy. Breast: Bilateral breast without palpable masses, dimpling, nipple discharge or inversion. Left breast TTP Resp: CTA; normal inspiratory effort, no wheezes, rhonchi or rales Cardio: RRR, no murmurs rubs or gallops Abdomen: soft non tender, non distended, normoactive bowel sounds, MSK: FROM of UE and Les bilaterally; no edema Skin: Sparse scattered pruritic papules noted on the arms, back, neck Neuro: alert and oriented, normal speech, normal gait Assessment & Plan 70-year-old female who presented in 08/2024 with a right-sized stage I invasive ductal breast cancer, ER/AZ-positive, HER2-negative and a synchronous left- /stage I invasive lobular breast cancer ER/AZ-positive, HER2-negative. She underwent bilateral lumpectomies. Oncotype Dx assay on both tumor showed no benefit of adjuvant chemotherapy. She completed adjuvant breast radiation. She started adjuvant letrozole developed generalized pruritic rash, which resolved off letrozole. Now on tamoxifen. Shestarted tamoxifen 2 months ago and previously tolerated well despite tolerable hot flashes and night sweats, she is presenting today with a pruritic rash likely from the tamoxifen. Right-sided stage I invasive ductal breast cancer, ER/AZ-positive, HER2-negative and a synchronous left-/stage I invasive lobular breast cancer ER/AZ-positive, HER2-negative. Completed lumpectomy and adjuvant breast radiation Oncotype DX assay showed no benefit of adjuvant chemotherapy Started on adjuvant letrozole but was discontinued due to a rash; switched to tamoxifen Presenting today with a similar rash, likely due to tamoxifen Will hold tamoxifen, follow-up in 6 weeks to determine resolution of rash Hydroxyzine x10 days as needed sent for pruritus Breast pain/swelling She reported left breast pain and bilateral swelling She performs regular breast exams, no other changes reported No appreciable masses on exam Will follow-up in 6 weeks, if pain persists may consider additional imaging Bilateral 1+ pitting edema Patient is on amlodipine which could be contributing Pt has an appointment with PCP tomorrow and will address edema at that time Morning back pain Taking tylenol prn which relieves the pain Tamoxifen could be contributing to the pain; she is discontinuing due to the rash, hopefully back pain will improve off tamoxifen Encouraged pt to discuss back pain at visit with PCP tomorrow Follow-up 6 weeks Please note, this note may have been created in part by using LetMeGo dictation software, and therefore, it may contain typographical and/or grammatical errors inherent in a voice recognition software program CC: No primary care provider on file. 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/2018 DX:Enlarged parotid gland Essential hypertension 12/01/2015 DX:Essential hypertension Exertional asthma 12/01/2015 DX:Exertional asthma Gastroesophageal reflux disease without esophagitis 12/01/2015 DX:Gastroesophageal reflux disease without esophagitis Hyperlipidemia 12/01/2015 DX:Hyperlipidemia Irregular heart beat A fib Low ferritin DX:Low ferritin Old PR (myocardial infarction) 03/09/2016 DX:Old PR (myocardial infarction); COMMENT: NON STEMI 06/28/14 / stress test 08/18/14 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 ([facility] V24, [facility] V28) 03/09/2016 DX:Type 2 diabetes mellitus with cataract (HCC); COMMENT: OU Varicose veins 03/09/2016 DX:Varicose veins Venous insufficiency of both lower extremities 03/09/2016 DX:Venous insufficiency of both lower extremities; COMMENT: EVLT 2014/ Dr Mohan Benedict Vitamin D deficiency 03/09/2016 DX:Vitamin D deficiency [2] Past Surgical History: Procedure Laterality Date CHOLECYSTECTOMY COLONOSCOPY 12/12/2006 PROCEDURE: HISTORICAL COLONOSCOPY; COMMENT: [email or web address]; normal screening exam, not difficult. COLONOSCOPY 08/15/2018 PROCEDURE: HISTORICAL COLONOSCOPY; COMMENT: negative COLONOSCOPY W/ POLYPECTOMY 12/12/2016 PROCEDURE: AZ COLSC FLX W/RMVL OF TUMOR POLYP LESION SNARE TQ; COMMENT: 2cm rectal polyp - tubulovillous adenoma foci hi grade dysplasia FLEXIBLE SIGMOIDOSCOPY 01/2017 PROCEDURE: HISTORICAL FLEXIBLE SIGMOIDOSCOPY; COMMENT: negative HYSTERECTOMY 1984 PROCEDURE: HISTORICAL HYSTERECTOMY; COMMENT: total BSO OTHER SURGICAL HISTORY 2014 PROCEDURE: ---- OTHER ----; COMMENT: EVLT and phlebectomy [3] Family History Problem Relation Name Age of Onset Alzheimer's disease Mother Lung cancer Father ? mets to brain Diabetes Brother epilepsy Breast cancer Aunt m ? age [4] Social History Tobacco Use Smoking Status Never Smokeless Tobacco Never [5] Current Outpatient Medications: albuterol HFA (PROAIR HFA [...] day in the morning., Disp: , Rfl: losartan (COZAAR) 100 mg tablet, Take 1 [...] 150 mg, Disp: 5 tablet, Rfl: 0 letrozole (FEMARA) 2.5 mg tablet, Take 1 tablet (2.5 mg total) by mouth 1 (one) time each day Take with or without food., Disp: 90 tablet, Rfl: 3 [6] Allergies Allergen Reactions Cephalexin Monohydrate Hives itching Kiwi (Actinidia Chinensis) Congestion of the throat K Oxycodone Hives Penicillins Rash Atorvastatin Sore Throat Lcoughing Morphine Nausea And Vomiting No allergy Codeine Reaction not mentioned Cosigned by Erasto Santana MD at 05/28/2025 2:57 PM EST documented in this encounter Plan of Treatment Upcoming Encounters Date Type Department Care Team (Late st Contact Info) Description 07/11/2025 11:45 AM EST Office Visit [facility] Hematology Oncology [address] [place] [phone] Ana Taylor PA [address] [place] [address] 08/25/2025 10:00 AM EDT Office Visit General Surgery - [place] [address] [facility] [address] [place] [address] Jalen Ferguson MD [address] [place] [phone] documented as of this encounter Visit Diagnoses Diagnosis Infiltrating ductal carcinoma of breast, right (CMS/HCC V24, CMS/HCC V28)- Primary Infiltrating lobular carcinoma of breast, stage 1, left (CMS/HCC V24, CMS/HCC V28) Rash Rash and other nonspecific skin eruption documented in this encounter
--- NOTE | 2025-05-29 14:29 | A.OFFPC_ITS ---
Vital Signs 05/29/25 14:43 Height 5 ft 8 in Weight 164 lb 6 oz BMI 25.0 BP 118/78 Blood Pressure Location Rt brachial Position Sitting Respiration 16 Pulse 74 Pulse Source Pulse Oximeter Temp 97.5 F Temp Source Temporal Artery Scan Pulse Oximetry (%) 97 Oxygen Delivery Method Room Air Intake Visit Reasons: iheu from [place]/6 wks HTN, DM, labs review Intake Note: Mary presents in the office today to establish care with new provider. Sprinkler Irrigation Equipment Mechanic Required: Yes Sprinkler Irrigation Equipment Mechanic Name: Raji [id number] Information Interpreted: non-clinical & clinical Is last menstrual period known: No Post menopausal: No Patient : No Allergies atorvastatin (Lipitor) Allergy (Unknown, Verified 05/29/25 14:39) unknown cephalexin (Keflex) Allergy (Unknown, Verified 05/29/25 14:39) unknown codeine Allergy (Unknown, Verified 05/29/25 14:39) unknown letrozole Allergy (Unknown, Verified 05/29/25 14:39) Itching morphine Allergy (Unknown, Verified 05/29/25 14:39) unknown oxycodone (Percocet) Allergy (Unknown, Verified 05/29/25 14:39) unknown Penicillins Allergy (Unknown, Verified 05/29/25 14:39) Unknown Tobacco use date assessed: 05/29/25 Dental Screening Dental Screen Date: 05/29/25 Did you have a dental visit in the last 12 months?: Yes Did you have a dental problem in the last 6 months where you did not have access to dental care?: No Was dental information given to patient?: Patient has dentist HPI HPI Comments History of Present Illness Details 70 year old female presents to [facility]. 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 Type II DM-diagnosed 1996. A1c is 6.8%. Checks glucose twice daily. She has a low blood sugar if she doesn't eat breakfast. Denies lows within the past 6 months. Taking Januvia 50 mg, Metformin ER 1000 mg BID, Lantus 25 units. She is on an ARB for HTN. LDL at goal <100, no statin. No retinopathy. Due for labs. Denies neuropathy. Atrial fibrillation-on beta williams and Xarelto. Followed by Dr. Carrillo. Asthma-no recent symptoms. Has albuterol inhaler. Bilateral breast cancer-diagnosed in December 2024. Dr. Santana. Treated with surgery and radiation. Stopped Tamoxifen yesterday due to side effects including body itching and fatigue. EGD and colonosocpy done July 2024. Thyromegaly on exam. Denies history of thyroid problems. ROS: Constitutional: No unexplained weight loss, fever, chills. Eyes: No vision change Respiratory: No shortness of breath, cough or sputum production. Cardiovascular: No chest pain Neurologic: No headache, dizziness, syncope Hematologic/Lymphatics: No bleeding or bruising. Endocrine: No cold or heat intolerance. No polyuria or polydipsia. Physical exam: Constitutional: Alert, in no distress. Neck: Supple, Full range of motion. No lymphadenopathy. Thyromegaly. Respiratory: Clear to auscultation. Cardiovascular: S1 S2 regular. No murmurs. Gastrointestinal: Abdomen soft, non-tender, non-distended. Normal bowel sounds. No palpable masses. Skin: no rash Extremities: Warm and well perfused. No clubbing, cyanosis or edema. . Psychiatric: Normal mood and affect [facility] Medical History (Updated 05/29/25 @ 15:15 by JET Méndez) Thyromegaly Type II diabetes mellitus, well controlled B12 deficiency Overweight (BMI 25.0-29.9) terminal gauger (current) use of insulin HTN (hypertension) Depression GERD (gastroesophageal reflux disease) Diabetes mellitus Vitamin D deficiency Surgical History History of lumpectomy of both breasts Hx of colonoscopy Hx of cholecystectomy Hx of hysterectomy Family History Father Lung cancer Mother No problems noted. Family/Other Diabetes Mother Mental health disorder Social History (Updated 05/29/25 @ 14:43 by Eboni Oh CMA) Household Members: Spouse Housing: Apartment Are you a primary housekeeper caregiver to a significant other at home: No Do you presently have visiting nurse or other home services: No Alcohol intake: current Alcohol intake frequency: does not drink Patient Tobacco Use Status: Never used Tobacco e-Cigarette/Vaping Use: Never Used Second Hand Smoke Exposure: No service: No Current occupational status: disabled Current occupational exposures/hazards: No Cognitive needs: No Hearing needs: No Vision needs: No Questionnaire Thrive Questionnaire Date Thrive assessed: 07/24/24 I am a: Patient What is your living situation today?: I have a steady place to live Within the past 12 months, did the food you bought not last and you didn't have the money to get more?: Sometimes True Within the past 12 months, did you worry whether your food would run out before you got money to buy more?: Sometimes True Do you have trouble paying for medicines?: No Do you have trouble getting transportation to medical appointments?: No Do you have trouble paying your heating and electricity bill?: No Do you have trouble taking care of your child, family member or friend?: No Do you have trouble with day-to-day activities such as bathing, preparing meals, shopping, managing finances, etc.?: Yes Are you currently unemployed and looking for a job?: No Are you interested in more education?: I choose not to answer this question Currently or been in a relationship where the following occur: I choose not to answer THRIVE Score: 2 JULIAN-7 AMB Questionnaire JULIAN-7 Date JULIAN - 7 assessed: 04/18/25 Source: Developed by Drs. Rob Johnson, Karla Washington, Colin Garcia and colleagues, with an educational lele from [employer]. Physical exam (Primary Care) Vital Signs: Last Vital Signs Temp 97.5 F 05/29/25 14:43 Pulse 74 05/29/25 14:43 Resp 16 05/29/25 14:43 BP 118/78 05/29/25 14:43 Pulse Ox 97 05/29/25 14:43 Oxygen Delivery Method Room Air 05/29/25 14:43 BMI result Body Mass Index 25.0 Tobacco/Smoking Status: Tobacco use Status Tobacco use date assessed 05/29/25 05/29/25 14:48 Patient Tobacco Use Status Never used Tobacco 05/29/25 14:43 e-Cigarette/Vaping Use Never Used 05/29/25 14:43 Thrive Assessment: Date of Thrive Assessment Date Thrive assessed 07/24/24 05/29/25 14:30 Currently or been in a relationship where the following occur: I choose not to answer Results AMB Hemoglobin A1c AMB Hemoglobin A1c 6.8 % Last Edit by Eboni Oh CMA on 05/29/25 14:49 Results Reviewed Results Reviewed: Laboratory Last Values Hgb A1c (Clinic) 6.8 % (4.0-6.0) H 05/29/25 14:48 Coding Level of Care Code Est Pt Level 4 (33686) Add On Problem Visit Only Diagnoses Type 2 diabetes mellitus with hyperglycemia, with long-term current use of insulin E11.65; Z79.4 Diabetes mellitus complication status: with hyperglycemia Diabetes mellitus oil heaterman insulin use: with intermediate use Diabetes mellitus type: type 2 Type II diabetes mellitus, well controlled E11.9 Thyromegaly E01.0 Essential hypertension I10 Hypertension type: essential hypertension Afib I48.91 Hyperlipidemia LDL goal <100 E78.5 Vitamin D deficiency E55.9 B12 deficiency E53.8 Assessment & Plan Assessment & Plan (1) Diabetes mellitus: Code(s): E11.9 - Type 2 diabetes mellitus without complications Category: Medical Qualifiers: Diabetes mellitus complication status: with hyperglycemia Diabetes mellitus intermediate insulin use: with intermediate use Diabetes mellitus type: type 2 Qualified Code(s): E11.65 - Type 2 diabetes mellitus with hyperglycemia; Z79.4 - terminal gauger (current) use of insulin Plan: Discussed pathophysiology of Type II Diabetes Mellitus with the patient in detail.? I explained the intermediate risks and complications associated with uncontrolled diabetes including nephropathy, neuropathy, peripheral vascular disease, retinopathy, increased risk of heart disease and stroke.? A1c at target <7%. Continue current regimen. Reviewed treatment for low blood sugar. (2) Type II diabetes mellitus, well controlled: Code(s): E11.9 - Type 2 diabetes mellitus without complications Category: Medical (3) Thyromegaly: Code(s): E01.0 - Iodine-deficiency related diffuse (endemic) goiter Category: Medical Plan: Check tsh and thyroid u/s. (4) HTN (hypertension): Code(s): I10 - Essential (primary) hypertension Category: Medical Qualifiers: Hypertension type: essential hypertension Qualified Code(s): I10 - Essential (primary) hypertension Plan: Continue current regimen. ARB for renal protection. (5) Afib: Code(s): I48.91 - Unspecified atrial fibrillation Category: Medical Plan: Managed by cardiology. (6) Hyperlipidemia LDL goal <100: Code(s): E78.5 - Hyperlipidemia, unspecified Category: Medical Plan: Check lipid profile. (7) Vitamin D deficiency: Code(s): E55.9 - Vitamin D deficiency, unspecified Category: Medical Plan: Check vitamin d. (8) B12 deficiency: Code(s): E53.8 - Deficiency of other specified B group vitamins Category: Medical Plan: Check b12. Plan Follow up in 3 months. Orders: Orders AMB Hemoglobin A1c 05/29/25 E11.65 - Type 2 diabetes mellitus with hyperglyc emia, Z79.4 - shelter (current) use of insulin Vitamin D 25-OH (D2 and D3) 05/29/25 M85.80 - Other specified disorders of bone density and structure, unspecified site Microalbumin, Random (w Creat) 05/29/25 E11.9 - Type 2 diabetes mellitus without complications, E53.8 - Deficiency of other specified B group vitamins, E55.9 - Vitamin D deficiency, unspecified, I10 - Essential (primary) hypertension Vitamin B12 05/29/25 E11.9 - Type 2 diabetes mellitus without complications, E53.8 - Deficiency of other specified B group vitamins, E55.9 - Vitamin D deficiency, unspecified, I10 - Essential (primary) hypertension, Z91.89 - Other specified personal risk factors, not elsewhere classified TSH reflex Free T4 05/29/25 E11.9 - Type 2 diabetes mellitus without complications, E53.8 - Deficiency of other specified B group vitamins, E55.9 - Vitamin D deficiency, unspecified, I10 - Essential (primary) hypertension Comprehensive Met. Panel 05/29/25 E11.9 - Type 2 diabetes mellitus without complications, E53.8 - Deficiency of other specified B group vitamins, E55.9 - Vitamin D deficiency, unspecified, I10 - Essential (primary) hypertension Complete Blood Count no Diff 05/29/25 E11.9 - Type 2 diabetes mellitus without complications, E53.8 - Deficiency of other specified B group vitamins, E55.9 - Vitamin D deficiency, unspecified, I10 - Essential (primary) hypertension IRON PROFILE 05/29/25 D64.9 - Anemia, unspecified US thyroid 05/29/25 E01.0 - Iodine-deficiency related diffuse (endemic) goiter Medications: Changed From blood sugar diagnostic ([place] Digitaluch Verio test strips) Three times a day FUTURE REFILLS FROM PCP. 100 ea 4RF E11.9 - Type 2 diabetes mellitus without complications, Z79.4 - terminal gauger (current) use of insulin To blood sugar diagnostic (OneTouch Verio test strips) Three times a day 100 ea 5RF E11.9 - Type 2 diabetes mellitus without complications, Z79.4 - terminal gauger (current) use of insulin
[2025-05-29 14:43] VITALS: BP 118/78; PULSE 74; RESP 16; TEMP 36.4; O2SAT 97; BMI 25.0
--- OUTSIDE RECORDS SUMMARY | 2025-05-29 21:46 | XMS_ITS | Encounter Summary ---
Author Organization [facility] Prior to 04/19/2024 Address [address] [place] [address] Care Team Providers Care Hull Drafter Name Role Phone Tiffanie Ding MD Primary Care Provider Un available Jade Plata MD Primary Care Provider Unavail able Shanna Álvarez MD Unavailable [phone] Marina Love MD Primary Care Provider [phone] Community, Pcp Primary Care Provider Unavailabl e Community, Pcp Primary Care Provider Unavailabl e Dejah Peoples [facility] Unavailable [phone] Encounter Details Date Type Department Care Team Description 04/01/2019 SCAN Medical Records [address] [place] [address] Abstract, Provider Social History Tobacco Use Types [...] on filedocumented in this encounter Care Teams Hull Drafter Relationship Specialty Start Date End Date Tiffanie Ding MD PCP - General Internal Medicine 06/17/1604/07 Jade Plata MD PCP - General Internal Medicine 04/08/19 04/04/21 Marina Love MD [address] [place] [address] PCP - General Internal Medicine 04/05/21 10/20/21 [facility], Pcp [address] [place], [place] [phone] PCP - General Internal Medicine 10/21/21 08/10/22 [facility], Pcp [address] [place] [address] PCP - General Internal Medicine 08/11/22 Shanna Álvarez MD Specialist Cardiology 02/10/21 Dejah Peoples, DILIP [address] [place] [address] Specialist Nurse Practitioner Family 02/28/24 documented as of this encounter
--- OUTSIDE RECORDS SUMMARY | 2025-05-29 21:46 | XMS_ITS | Encounter Summary ---
Author Organization [facility] Prior to 04/19/2024 Address [address] [place] [address] Care Team Providers Care Choirmaster Name Role Phone Shanna Álvarez MD Unavailable [phone] Community, Pcp Primary Care Provider Unavailabl e Dejah Peoples DNP Unavailable [phone] Reason for Visit * Reason Comments E-prescribe Rx Request Encounter Details Date Type Department Care Team Description 10/10/2022 Refill Gastroenterology [facility] [address] [facility] [address] [place] [address] PA-C E-prescribe Rx Request Social History Tobacco Use [...] on filedocumented in this encounter Care Teams Choirmaster Relationship Specialty Start Date End Date Community, Pcp PCP - General Internal Medicine 08/11/22 Shanna Álvarez MD Specialist Cardiology 02/10/21 Dejah Peoples DNP Specialist Nurse Practitioner Family 02/28/24 documented as of this encounter
--- OUTSIDE RECORDS SUMMARY | 2025-05-29 21:46 | XMS_ITS | Clinical Summary ---
Author Organization [employer] Address [address] [facility] 7t [place] [address] Care Team Providers Care Billing Typist Name Role Phone Unavailable Primary Care Provider [...] Use Screening 1968 Hepatitis C Screening 01/18/1974 RSV Patients and Patients Aged 60 years or older (1 - Risk 50-74 years 1-dose series) 01/18/2006 Zoster Vaccines (1 of 2) 01/18/2006 Dental X-Ray: Full Mouth 01/05/2020 01/03/2017 Dental [...]
--- OUTSIDE RECORDS SUMMARY | 2025-05-29 21:46 | XMS_ITS | Encounter Summary ---
Author Organization [facility] Prior to 04/19/2024 Address [address] [place] [address] Care Team Providers Care Descriptive Catalog Librarian Name Role Phone Shanna Álvarez MD Unavailable [phone] Community, Pcp Primary Care Provider Unavailabl e [facility], Pcp Primary Care Provider Unavailabl e Dejah Peoples DNP Unavailable [phone] Encounter Details Date Type Department Care Team Description 08/05/2022 Hospital Medical Records [address] [place] [address] [facility] Social History Tobacco Use Types Packs/Day [...] on filedocumented in this encounter Care Teams Descriptive Catalog Librarian Relationship Specialty Start Date End Date Community, Pcp PCP - General Internal Medicine 10/21/21 08/10/22 Community, Pcp PCP - General Internal Medicine 08/11/22 Shanna Álvarez MD Specialist Cardiology 02/10/21 Dejah Peoples DNP Specialist Nurse Practitioner Family 02/28/24 documented as of this encounter
--- OUTSIDE RECORDS SUMMARY | 2025-05-29 21:46 | XMS_ITS | Encounter Summary ---
Author Organization [facility] Prior to 04/19/2024 Address [address] [place] [address] Care Team Providers Care Operations Officer Name Role Phone Aneudy Ness MD Primary Care Provider [phone] Tiffanie Ding MD Primary Care Provider Un available Jade Plata MD Primary Care Provider Unavail able Shanna Álvarez MD Unavailable [phone] Marina Lvoe MD Primary Care Provider [phone] Community, Pcp Primary Care Provider Unavailabl e [facility], Pcp Primary Care Provider [facility] Dejah Peoples [facility] Unavailable [phone] Encounter Details Date Type Department Care Team Description 10/16/2015 Release of Information Medical Records [address] [place] [address] Abstract, Provider Social History Tobacco Use Types Packs/Day Years Used Date Smoking Tobacco: Never Assessed Sex Assigned at Date Recorded Not on file Job Start Date Occupation Industry Not on file Not on file Not on file documented as of this encounter Plan of Treatment Not on file documented as of this encounter Visit Diagnoses Not on filedocumented in this encounter Care Teams Operations Officer Relationship Specialty Start Date End Date Aneudy Ness MD [address] [place] [address] PCP - General Internal Medicine 10/12/15 06/16/16 Tiffanie Ding MD [address] [place] [phone] PCP - General Internal Medicine 06/17/16 04/07/19 Jade Plata MD [address] [place] [address] PCP - General Internal Medicine 04/08/19 04/04/21 Marina Love MD [address] [place] [address] PCP - General Internal Medicine 04/05/21 10/20/21 [facility], Pcp [address] [place], [place] [address] PCP - General Internal Medicine 10/21/21 08/10/22 [facility], Pcp [address] [place], [place] [address] PCP - General Internal Medicine 08/11/22 Shanna Álvarez MD [address] [id number] Specialist Cardiology 02/10/21 Dejah Peoples DNP [address] [place], [place] [address] Specialist Nurse Practitioner Family 02/28/24 documented as of this encounter
--- OUTSIDE RECORDS SUMMARY | 2025-05-29 21:46 | XMS_ITS | Encounter Summary ---
Author Organization [facility] [facility] Prior to 04/19/2024 Address [address] [place] [address] Care Team Providers Care Operating Room Technician Name Role Phone Shanna Álvarez MD Unavailable [phone] Marina Love MD Primary Care Provider [phone] Community, Pcp [facility] Primary Care Provider UnavailDejah Jacobs [facility] Unavailable [phone] Encounter Details Date Type Department Care Team Description 09/14/2021 Orders Only Medical Records [address] [place] [address] PA-C Social History Tobacco Use Types Packs/Day Years [...] Date/Time Associated Diagnosis Comments OUTSIDE LAB Routine 09/13/2021 documented in this encounter Results * OUTSIDE LAB (09/13/2021) Dequan Lane PA-C LAB documented in this encounter Visit Diagnoses Not on filedocumented in this encounter Care Teams Operating Room Technician Relationship Specialty Start Date End Date Marina Love MD [address] [place], [place] [phone] PCP - General Internal Medicine 04/05/21 10/20/21 [facility], Pcp [address] [place], [place] [phone] PCP - General Internal Medicine 10/21/21 08/10/22 [facility], Pcp [address] [place], [place] [phone] PCP - General Internal Medicine 08/11/22 Shanna Álvarez MD Specialist Cardiology 02/10/21 Dejah Peoples, DILIP [address] [place] [address] Specialist Nurse Practitioner [facility] 02/28/24 documented as of this encounter
--- OUTSIDE RECORDS SUMMARY | 2025-05-29 21:46 | XMS_ITS | Encounter Summary ---
Author Organization [employer] [facility] Prior to 04/19/2024 Address [address] [place] [address] Care Team Providers Care Director Of Laboratory Operations Name Role Phone Shanna Álvarez MD Unavailable [phone] Marina Love MD Primary Care Provider [phone] [facility], Pcp [facility] Primary Care Provider Dejah Elliott [facility] Unavailable [phone] Encounter Details Date Type Department Care Team Description 08/13/2021 Chief Design Drafter Report Medical Records [address] [place], [place] [id number] [facility] Social History Tobacco Use Types [...] on filedocumented in this encounter Care Teams Director Of Laboratory Operations Relationship Specialty Start Date End Date Marina Love MD [address] [place], [place] [phone] PCP - General Internal Medicine 04/05/21 10/20/21 [facility], Pcp [address] [place] [address] PCP - General Internal Medicine 10/21/21 08/10/22 [facility], Pcp [address] [place] [address] PCP - General Internal Medicine 08/11/22 Shanna Álvarez MD Specialist Cardiology 02/10/21 Dejah Peoples DNP [address] [place] [address] Specialist Nurse Practitioner Family 02/28/24 documented as of this encounter
--- OUTSIDE RECORDS SUMMARY | 2025-05-29 21:46 | XMS_ITS | Encounter Summary ---
Author Organization [employer] Address [address] [facility] 7t [place] [address] Care Team Providers Care Closing Agent Name Role Phone Unavailable Primary Care Provider Unavailabl e Encounter Details Date Type Department Care Team (Latest Contact Info) Description 04/29/2019 Abstract [facility] CONVERSIONS Dental, Provider, DDS Social History [...]
--- OUTSIDE RECORDS SUMMARY | 2025-05-29 21:46 | XMS_ITS | Encounter Summary ---
Author Organization [employer] [facility] Prior to 04/19/2024 Address [address] [place] [address] Care Team Providers Care Brake Repairer Bus Name Role Phone Tiffanie Ding MD Primary Care Provider Un available Jade Plata MD Primary Care Provider Unavail able Shanna Álvarez MD Unavailable [phone] Marina Love MD Primary Care Provider [phone] Community, Pcp Primary Care Provider Unavailabl e Community, Pcp Primary Care Provider Unavailabl e Dejah Peoples [facility] Unavailable [phone] Reason for Visit * Reason Comments E-prescribe Rx Request Encounter Details Date Type Department Care Team Description 11/18/2018 Refill Adult Medicine [address] [id number] Tiffanie Ding MD E-prescribe Rx Request Social [...] N/A Patients current insurance carrier is: Payor: [employer] FFS / Plan: [employer] [facility] / Product Type: MEDICAID RISK documented in this encounter Plan of Treatment Not on file documented as of this encounter Visit Diagnoses Not on filedocumented in this encounter Care Teams Brake Repairer Bus Relationship Specialty Start Date End Date Tiffanie Ding MD PCP - General Internal Medicine 06/17/1604/07 Jade Plata MD PCP - General Internal Medicine 04/08/19 04/04/21 Marina Love MD [address] [place] [address] PCP - General Internal Medicine 04/05/21 10/20/21 [facility], Pcp [address] [place], [place] [phone] PCP - General Internal Medicine 10/21/21 08/10/22 [facility], Pcp [address] [place], [place] [phone] PCP - General Internal Medicine 08/11/22 Shanna Álvarez MD Specialist Cardiology 02/10/21 Dejah Peoples, DILIP [address] [place] [address] Specialist Nurse Practitioner [facility] 02/28/24 documented as of this encounter
--- OUTSIDE RECORDS SUMMARY | 2025-05-29 21:46 | XMS_ITS | Encounter Summary ---
Author Organization [employer] [facility] Prior to 04/19/2024 Address [address] [place] [address] Care Team Providers Care Social Services Director Name Role Phone Shanna Álvarez MD Unavailable [phone] Count Includes [facility], Pcp Primary Care Provider Dejah Elliott DNP Unavailable [phone] Reason for Visit * Reason Comments E-prescribe Rx Request Encounter Details Date Type Department Care Team Description 10/23/2023 Refill Gastroenterology - [place] [address] [facility] [address] [place] [address] PA-C E-prescribe Rx [...] Miscellaneous Notes * Telephone Encounter - Lindy uRbin - 10/23/2023 10:03 AM EDT LUIS A- 09/02/21 NOV- none documented in this encounter Plan of Treatment Not on file documented as of this encounter Visit Diagnoses Not on filedocumented in this encounter Care Teams Social Services Director Relationship Specialty Start Date End Date Community, Pcp PCP - General Internal Medicine 08/11/22 Shanna Álvarez MD Specialist Cardiology 02/10/21 Dejah Peoples DNP Specialist Nurse Practitioner Family 02/28/24 documented as of this encounter
--- OUTSIDE RECORDS SUMMARY | 2025-05-29 21:46 | XMS_ITS | Encounter Summary ---
Author Organization [facility] [facility] Prior to 04/19/2024 Address [address] [place] [address] Care Team Providers Care Health Information Internship Name Role Phone Aneudy Ness MD Primary Care Provider [phone] Tiffanie Ding MD Primary Care Provider Un available Jade Plata MD Primary Care Provider Unavail able Shanna Álvarez MD Unavailable [phone] Marina Loev MD Primary Care Provider [phone] Community, Pcp Primary Care Provider Unavailabl e Community, Pcp Primary Care Provider Unavailabl e Dejah Peoples [facility] Unavailable [phone] Encounter Details Date Type Department Care Team Description 12/04/2015 Release of Information Medical Records [address] [place] [address] Abstract, Provider Social History Tobacco Use Types [...] on filedocumented in this encounter Care Teams Health Information Internship Relationship Specialty Start Date End Date Aneudy Ness, [address] [place] [address] PCP - General Internal Medicine 10/12/15 06/16/16 Tiffanie Ding MD [address] [place] [address] PCP - General Internal Medicine 06/17/16 04/07/19 Jade Plata MD [address] [place] [address] PCP - General Internal Medicine 04/08/19 04/04/21 Marina Love MD [address] [place] [address] PCP - General Internal Medicine 04/05/21 10/20/21 [facility], Pcp [address] [place] [address] PCP - General Internal Medicine 10/21/21 08/10/22 [facility], Pcp [address] [place], [place] [address] PCP - General Internal Medicine 08/11/22 Shanna Álvarez MD [address] [place] [address] Specialist Cardiology 02/10/21 Dejah Peoples, DILIP [address] [place] [address] Specialist Nurse Practitioner Family 02/28/24 documented as of this encounter
--- OUTSIDE RECORDS SUMMARY | 2025-05-29 21:46 | XMS_ITS | Encounter Summary ---
Author Organization [employer] [facility] Prior to 04/19/2024 Address [address] [place] [address] Care Team Providers Care Tie Presser Name Role Phone Tiffanie Ding MD Primary Care Provider Un available Jade Plata MD Primary Care Provider Unavail able Shanna Álvarez MD Unavailable [phone] Marina Love MD Primary Care Provider Community, Pcp Primary Care Provider Unavailabl e Community, Pcp Primary Care Provider Unavailabl e Dejah Peoples [facility] Unavailable [phone] Encounter Details Date Type Department Care Team Description 07/25/2018 Orders Only Radiology - [address] [address] Tiffanie Ding MD Diabetes mellitus without complication [...] EST [facility] Comment: If patient is -Algerian, multiply result by 1.21 Chronic Kidney Disease: < 60 ml/min/1.73 square meters Kidney Failure: < 15 ml/min/1.73 square meters 07/27/2018 8:33 AM EST 07/27/2018 8:34 AM EST Tiffanie Ding MD LAB [facility] documented in this encounter Visit Diagnoses Diagnosis Diabetes mellitus without complication (HCC)- Primary Type II or unspecified type diabetes mellitus without mention of complication, not stated as uncontrolled documented in this encounter Care Teams Tie Presser Relationship Specialty Start Date End Date Tiffanie Ding MD PCP - General Internal Medicine 06/17/1604/07 Jade Plata MD PCP - General Internal Medicine 04/08/19 04/04/21 Marina Love MD [address] [place], [place] [phone] PCP - General Internal Medicine 04/05/21 10/20/21 [facility], Pcp [address] [place], [place] [address] PCP - General Internal Medicine 10/21/21 08/10/22 [facility], Pcp [address] [place] [address] PCP - General Internal Medicine 08/11/22 Shanna Álvarez MD Specialist Cardiology 02/10/21 Dejah Peoples DNP [address] [place] [address] Specialist Nurse Practitioner Family 02/28/24 documented as of this encounter
--- OUTSIDE RECORDS SUMMARY | 2025-05-29 21:46 | XMS_ITS ---
Author Organization [facility] Address [address] [place] [address] Phone Care Team Providers Care Compliance Lead Name Role Phone Unavailable Primary Care Provider Unavailabl e Active Problems Problem Noted Date Diagnosed Date Infiltrating ductal carcinoma of breast, right 0 09/18/2024 Infiltrating lobular carcinoma of breast, stage 1, left 09/18/2024 Abnormal iron saturation 06/05/2024 Low ferritin [...] weeks Allergic rhinitis 12/02/2016 Asthma 03/09/2016 Old [place] (myocardial infarction) 03/09/2016 Overview (06/05/2024): NON STEMI 06/28/14 Echo normal / stress test 08/18/14 Follows with [facility] Type 2 diabetes mellitus with cataract 6 Overview (06/05/2024): Dx'd in 1996; Endo @ [facility] Venous insufficiency of both lower extremities [...] 01/09/2025 - 01/30/2025 267 / 267 cGy 16 4,272 / 4,272 cGy
--- OUTSIDE RECORDS SUMMARY | 2025-05-29 21:46 | XMS_ITS | Encounter Summary ---
Author Organization [email or web address] [facility] Prior to 04/19/2024 Address [address] [place] [address] Care Team Providers Care Traction Power Engineer Name Role Phone Sony Milton MD Primary Care Provider Unavailcresencio e Aneudy Ness MD Primary Care Provider [phone] Tiffanie Ding MD Primary Care Provider Un available Jade Plata MD Primary Care Provider Unavail able Shanna Álvarez MD Unavailable [phone] Marina Love MD Primary Care Provider [phone] Community, Pcp Primary Care Provider Unavailabl e Community, Pcp Primary Care Provider Unavailabl e Dejah Peoples [facility] Unavailable Encounter Details Date Type Department Care Team Description 06/28/2014 Hospital Medical Records [address] [place] [address] Slava Rausch MD Social History Tobacco Use [...] on filedocumented in this encounter Care Teams Traction Power Engineer Relationship Specialty Start Date End Date Sony Milton MD PCP - General Cardiovascular Disease 04/30/14 10/11/15 HayAneudy Lemons MD [address] [place] [address] PCP - General Internal Medicine 10/12/15 06/16/16 Tiffanie Ding MD [address] [place] [address] PCP - General Internal Medicine 06/17/16 04/07/19 Jade Plata MD [address] [place] [address] PCP - General Internal Medicine 04/08/19 04/04/21 Marina Love MD [address] [place] [address] PCP - General Internal Medicine 04/05/21 10/20/21 [facility], Pcp [address] [place], [place] [address] PCP - General Internal Medicine 10/21/21 08/10/22 [facility], Pcp [address] [place] [address] PCP - General Internal Medicine 08/11/22 Shanna Álvarez MD [address] [place], [place] [address] Specialist Cardiology 02/10/21 Dejah Peoples, DILIP [address] [place] [address] Specialist Nurse Practitioner Family 02/28/24 documented as of this encounter
--- OUTSIDE RECORDS SUMMARY | 2025-05-29 21:46 | XMS_ITS | Encounter Summary ---
Author Organization [employer] Address [address] [facility] 7t [place] [address] Care Team Providers Care C Programmer Name Role Phone Unavailable Primary Care Provider Unavailabl e Encounter Details Date Type Department Care Team (Latest Contact Info) Description 06/26/2018 Abstract [facility] CONVERSIONS Dental, Provider, DDS Social [...]
--- OUTSIDE RECORDS SUMMARY | 2025-05-29 21:46 | XMS_ITS | Data Portability ---
Author Organization [facility], [facility] Address [address] [place] [address] Care Team Providers Care Water Sander Name Role Phone HIM CCA OTHER Assessment No assessment recorded. Plan of Treatment Reminders Order Date Submit Date Provider Last Modified By Organization Details Last Modified Time Details Appointments None recorded. Lab hemoglobin + hematocrit, blood [address], [address] 4 12:08:05 BMP, serum or plasma [address], [address] 4 12:08:06 Referral None recorded. Procedures None recorded. Surgeries None recorded. Imaging electrocard iogram [address], [address] 4 12:08:04 Medication Orders None recorded. Patient TargetsNo targets recorded. Patient Instructions Encounter Date Encounter Id Patient Instructions Last Modified By Organization Details Last Modified Time 01/03/2024 [id number] orthostatic vitals* JENNA Not available 01/05/2025 05:02:00 Reason for Referral None Reported. Results Created Date Observation Date Name Description Value Unit Range Abnormal Flag Note LastModifiedBy Organization Detail LastModifiedTime 01/03/2001/03/2024 BMP, serum or plasm a CRE 0.8 Not Available [facility] - [facility] [address], [address] 01/03/2024 11:53:39 01/03/20 24 01/03/2024 BMP, serum or plasm a GLU 149 Not Available [facility] - [facility] [address], [address] 01/03/2024 11:53:39 01/03/20 24 01/03/2024 BMP, serum or plasm a K+ 4.4 Not Available Main - [facility] [address], [address] 01/03/2024 11:53:39 01/03/20 24 01/03/2024 BMP, serum or plasm a Na+ 135 Not Available [facility] - [facility] [address], [address] 01/03/2024 11:53:39 01/03/20 24 01/03/2024 hemog lobin + hemat ocrit , blood Hemoglobin 15.3 Not Available [facility] - [address], [address] 01/03/2024 11:53:33 01/03/20 24 01/03/2024 hemog lobin + hemat ocrit , blood Hematocrit 45 Not Available [address], [address] 01/03/2024 11:53:33 01/03/20 24 01/03/2024 ramírez walter am No observ ation record ed. jaron [address], [address] 01/03/2024 12:08:03 Result Notes None recorded. Medical Equipment None Reported. Allergies Allergen ID Allergen Name Allergen Category Reaction Reaction Severity Criticality Documentation Date Start Date Code Code System Note Provider Name and Address Organization Details Recorded Time 45192 acetamino phen / oxycodone medicatio n Not available Not available Not available 07/17/2024 24843 3 RxNorm Not Available [facility] - production 5 09:49:30 8874 Product containin g penicilli n (product) medicatio n Not available Not available Not available 04/16/2024 67217 8001 SNOMED Not Available [facility] - production [...] ONCE DIRECTED BY [facility] AT [facility] active Not Available Not Available No t [...] Vitals Date Recorded Heart rate Oxygen saturation Body temperature Respiratory rate Body height Body weight Heart rate Systolic And Diastolic Systolic And Diastolic Provider Name and Address Organization Details Last Updated DateTime 4 52 /min 97 % 97.2 [degF] 16 /min 172.72 cm 93957.8 64 g 56 /min 150/80 mm[Hg] 130/78 mm[Hg] Not Available [facility] - production 4 11:54:25 Date Recorded Heart rate Body temperature Respiratory rate Oxygen saturation Systolic And Diastolic Provider Name and Address Organization Details Last Updated DateTime 4 70 /min 96.9 [degF] 16 /min 97 % 148/81 mm[Hg] Not Available [facility] - production 4 11:31:00 Social History None [...] ICD10 Code Diagnosis IMO Codes Diagnosis Note [id number] Madelyn Flores MD Main - [facility] [address] [place] [phone] 01/03/2024 11:38:46 01/03/2024 22:15:23 Headache 76525659 R51.9 As noted, we were called to see this patient regarding concerns of dizziness and headache. Evaluation in the field was performed by my hide cleaner colleague, as noted above, I provided real-time [...] Díaz Member ID Guarantor Name 04/08/2024 1 [facility] - DOS ON OR AFTER 2022 - DUAL ELIGIBLE - [employer] OPTIONS AND ONE CARE (MEDICARE REPLACEMENT/ADV ANTAGE - HMO) Mary Miller [id number] Mary Miller Notes Date Note Type Note [...] breath. Denies bleeding or blood in stool. Supervisor Of Operations POC Test Results from Jose, Moy - ALS iSTAT Chem8+ (13:15:45) Na: 135 mEq/L K: 4.4 mEq/L Cl: 97 mEq/L iCa: 1.20 mmol/L TCO2: 31 mmol/L Glu: 149 mg/dL BUN: 14 mg/dL Crea: 0.8 mg/dL Hct: 45 % Hb: 15.3 g/dL A .................. .................. .................. .................. .................. .................. .................. ............... Supervisor Of Operations Note [facility] Moy Garcia: [facility] and [...] .................. ............... Disposition: Fulfilled Madelyn Flores MD [address] [place] [address],[address] [facility], [place], [address], [employer] - ASYM III 01/03/2024 13:30:49 OBGyn Episode No OBEpisode recorded.
--- OUTSIDE RECORDS SUMMARY | 2025-05-29 21:46 | XMS_ITS | Clinical Summary ---
Author Organization [facility] Address [address] [place] [address] Phone Care Team Providers Care Lieutenant General Name Role Phone Unavailable Primary Care Provider [...] 30 each 11 5 03/20/20 26 Active hydrOXYzine HCL (ATARAX) 10 mg tabletIndicatio ns:Rash Take 1 tablet (10 mg total) by mouth at bedtime as needed for itching. 10 tablet 5 06/07/20 25 Active Active Problems Problem Noted Date Diagnosed [...] weeks Allergic rhinitis 12/02/2016 Asthma 03/09/2016 Old MD (myocardial infarction) 03/09/2016 Overview (06/05/2024): NON STEMI 06/28/14 Echo normal / stress test 08/18/14 Follows with [facility] Type 2 diabetes mellitus with cataract 6 Overview (06/05/2024): Dx'd in 1996; Endo @ [facility] Venous insufficiency of both lower extremities 0 03/09/2016 Vitamin D deficiency 03/09/2016 Depression 12/01/2015 Essential hypertension 12/01/2015 Gastroesophageal reflux disease without esophagi tis 12/01/2015 Encounters Date Type Department Care Team Description 05/28/2025 11:15 AM EST Office Visit [facility] Hematology Oncology [address] [place] [address] Ana Taylor PA Infiltrating ductal carcinoma of breast, right (CMS/HCC V24, CMS/HCC V28) (Primary Dx); Infiltrating lobular carcinoma of breast, stage 1, left (CMS/HCC V24, CMS/HCC V28); Rash 05/27/[address] [facility] Hematology Oncology [address] [place] [phone] Juanis Ramirez MA 04/11/2025 10:59 AM EDT - 04/11/2025 11:59 PM EDT Hospital Encounter [facility] Radiation Oncology [address] [place] [phone] Abril Krishnamurthy NP Infiltrating ductal carcinoma of breast, right (CMS/HCC V24, CMS/HCC V28) (Primary Dx); Infiltrating lobular carcinoma of breast, stage 1, left (CMS/HCC V24, CMS/HCC V28) Discharge Disposition: Home or Self Care 04/10/2025 10:45 AM EDT Office Visit [facility] Hematology Oncology [address] [place] [phone] Erasto Santana MD Infiltrating ductal carcinoma of breast, right (CMS/HCC V24, CMS/HCC V28) (Primary Dx); Infiltrating lobular carcinoma of breast, stage 1, left (CMS/HCC V24, CMS/HCC V28) 03/20/[address] [facility] Hematology Oncology [address] [place] [phone] Erasto Santana MD 03/18/2025 11:15 AM EDT Office Visit [facility] Hematology Oncology [address] [place] [phone] Erasto Santana MD Infiltrating ductal carcinoma of breast, right (CMS/HCC V24, CMS/HCC V28) (Primary Dx); Infiltrating lobular carcinoma of breast, stage 1, left (CMS/HCC V24, CMS/HCC V28) 03/03/[address] [facility] Hematology Oncology [address] [place] [phone] Juanis Ramirez MA from Last 3 Months Immunizations Immunization Administration Dates Next Due Influenza Quadravalent, MDCK , 0.5ml, preservative free (Flucelvax) 6mo and older 06/11/2020,04/25/2019 Influenza Quadravalent, MDCK , 0.5ml, with preservative (Flucelvax) 6mo and older 03/21/2018,02/21/2017 Influenza trivalent, 0.5mL (Fluad) 65yo and olde r 04/05/2021 Influenza trivalent, 0.5mL, preservative free (Fluarix; FluLaval; Fluzone) ages 6mo and older (Afluria) 3 years and older 03/18/2016 [facility] SARS-CoV-2 COVID -19, vector-nr, rS-Ad26, preservative free 09/22/2020 [facility] SARS-CoV-2 COVID-19, mRNA, LNP-S, preservative free 07/06/2021 [...] phlebectomy COLONOSCOPY 12/12/2006 PROCEDURE: HISTORICAL COLONOSCOPY; COMMENT: [email or web address]; normal screening exam, not difficult. COLONOSCOPY W/ POLYPECTOMY 12/12/2016 PROCEDURE: FL COLSC FLX W/RMVL OF TUMOR POLYP LESION [...] a Exertional asthma 12/01/2015 DX:Exertional asthma Old MD (myocardial infarction) 03/09/2016 D X:Old MD (myocardial infarction); COMMENT: NON STEMI 06/28/14 / stress test 08/18/14 Venous insufficiency of both lower extremities 03/09/2016 DX:Venous insufficiency of b oth lower extremities; COMMENT: EVLT 2014/ Dr Mohan Benedict Type 2 diabetes mellitus wit h cataract ([facility] V24, [facility] V28) 03/09/2016 DX:Type 2 diabetes mellitus with cataract (HCC); COMMENT: OU Varicose veins 03/09/2016 DX:Varicose vein s Atrial fibrillation ([facility] V24, 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 V24, [facility] V28) breast Family History Medical History Relation [...] F) 05/28/2025 10:49 AM EST Respiratory Rate 16 04/11/2025 11:03 AM EDT Oxygen Saturation 99% 05/28/2025 10:49 AM EST Inhaled Oxygen Concentration - - Weight 73.9 kg (163 lb) 05/28/2025 10:49 AM EST Height 172.7 cm (5' 8 ) 04/11/2025 11:03 AM EDT Body Mass Index 24.78 04/11/2025 11:03 AM EDT Plan of Treatment Upcoming Encounters Date Type Department Care Team (Late st Contact Info) Description 07/11/2025 11:45 AM EST Office Visit [facility] Hematology Oncology [address] [place] [phone] Ana Taylor PA [address] [place] [address] 08/25/2025 10:00 AM EDT Office Visit General Surgery - [place] [address] [facility] [address] [place] [phone] Jalen Ferguson MD [address] [place] [address] Health Maintenance Due Date Last Done Comments [...] Blood Test 09/02/2022 09/02/2021 Depression Screening 06/19/2024 COVID-19 Vaccine ( season) 2025 03/21/2023, 07/06/2021, 09/22/2020 Falls Risk Assessment 10/29/2025 10/29/2024 Cholesterol Screening (Lipid Panel) 06/21/2026 06/21/2021 Osteoporosis Screening (Bone Density Screening) 02/19/2035 02/19/2025, 10/08/2021 DTaP,Tdap,and Td Vaccines (3 - Td or Tdap) 04/18/2035 04/18/2025, 08/12/2014 Hepatitis C Screening Completed 12/06/2017 Breast Cancer Screening Discontinued 09/06/19, 08/26/2024, 07/25/2024, Additional history exists Influenza Vaccine Completed 04/18/2025, , 03/14/2023, Additional history exists HIB Vaccines [...] this topic Medical Devices Implanted Type Area Ocular Care Aide Device Identifier Shelf Expiration Date Model / Serial / Lot Marker Brst Biopsy Site Hydromark - [id number] Implanted:Qty: 1 on 09/05/2024 by Marina May MD at [facility] Breast Implants Right: Breast [employer] [id number] 12/31/2026 4010-05-1 0-T1 / / [id number] D Hemostat Flour Collgn 1gm Avitene - Sna - [id number] Implanted:Qty: 1 on 10/29/2024 by Jalen Ferguson MD at [facility] Hemostasis Left: Breast CR BARD - DAVOL DIV [id number] 06/15/2027 [id number] / [id number] / [id number] Hemostat Flour Collgn 1gm Avitene - Sna - [id number] Implanted:Qty: 1 on 10/29/2024 by Jalen Ferguson MD at [facility] Hemostasis Right: Breast CR BARD [employer] [id number] 06/15/2027 [id number] / NA / [id number] Marker Hydromark 15g Butterfly T4 Ti - [id number] - [id number] Implanted:Qty: 1 on 08/26/2024 by Moses Basurto MD at [facility] Imaging Implants Left: Breast DEVICOR MED [employer]OD MAMMOTOME [id number] 04/30/2027 4010-02-1 5-T4 / [id number] / [id number] D Marker 18ga Magseed 7cm - [id number] - [id number] Implanted:Qty: 2 on 09/27/2024 by Moses Basurto MD at [facility] Imaging Implants N/A: Breast [employer] [id number] 12/16/2025 [id number] / [id number] / [id number] Description:BILATERAL Procedures Procedure Name Priority Date/Time Associated Diagnosis Comments BD BONE DENSITY DXA AXIAL SKELETON Routine 02/19/2025 9:46 AM EDT Osteoporosis, unspecified osteoporosis type, unspecified pathological fracture presence Encounter for osteoporosis screening in asymptomatic postmenopausal patient Osteopenia after menopause MG MAMMO DIGITAL DIAGNOSTIC POST CLIP RIGHT [...] probability of hip fracture of 0.7%. Code 31412 -------- FINAL REPORT -------- Dictated By: Donnell Gant Dictated Date: 02/19/2025 09:51 ET Assigned Physician: Donnell Gant Reviewed and Electronically Signed By: Donnell Gant Signed Date: 02/19/2025 09:52 ET Workstation ID: [id number] Transcribed By: Self Edit Transcribed Date: 02/19/2025 [...] density of the femurs bilaterally is 1.011 gm/ao9hegne is 100% of that of young normals [...] probability of hip fracture of 0.7%. Code 06833 -------- FINAL REPORT -------- Dictated By: Donnell Gant Dictated Date: 02/19/2025 09:51 ET Assigned Physician: Donnell Gant Reviewed and Electronically Signed By: Donnell Gant Signed Date: 02/19/2025 09:52 ET Workstation ID: [id number] Transcribed By: Self Edit Transcribed Date: 02/19/2025 09:51 ET us Iris Olguin MD IMG DXA PROCEDURES Final Res ult * (ABNORMAL) MG Mammo Digital Diagnostic Clip [...] features. ? Greatest length of carcinoma: 8mm Gallitzin score: Grade 2 Glandular/tubular morphology: 3 Nuclear [...] Date: 09/16/2024 12:17 ET Assigned Physician: Moses Basruto Reviewed and Electronically Signed By: Moses Basurto Signed Date: 09/16/2024 12:24 ET Workstation ID: [id number] Transcribed By: Self Edit Transcribed Date: 09/16/2024 [...] Signed Date: 09/06/2024 14:37 ET Workstation ID: [id number] Transcribed By: Self Edit Transcribed Date: 09/05/2024 [...] left the department in good condition. Result [facility] Cedric Friedman PHONE ENGINEER IMG BI PROCEDURES Edited Resul t - Final * Annual BMP Blood Test (09/02/2021) [facility] Annual BMP Blood Test abstracted Result [facility] Final Result * (ABNORMAL) Hemoglobin A1c (09/02/2021) [facility] Hemoglobin A1C 7.1(A) <=6.5 % Blood Venous blood specimen / Unknown Result [facility] LAB BLOOD ORDERABLES Marianela l Result * Lipid panel (06/21/2021) [facility] LDL/HDL Ratio 2 0 - 4 Triglycerides 66 0 - 150 mg/dL Cholesterol 188 0 - 200 mg/dL HDL 77 >=40 mg/dL LDL Cholesterol 98 0 - 150 mg/dL Blood Venous blood specimen / Unknown Result [facility] LAB BLOOD ORDERABLES Marianela l Result * Urine Albumin Creatinine Ratio (03/31/2021) [facility] Urine Albumin Creatinine Ratio abstracted Result [facility] HEALTH MAINTENANCE Final Result * Hepatitis C Screening (12/06/2017) Hepatitis C Screening abstracted us Historical Provider HEALTH MAINTENANCE Final Result from Last 3 Months or Most Recently Relevant to Health Maintenance Insurance [employer] MEDICARE Member Subscriber Plan / Payer (Ef fective 2021-Present) Name:Yenny Miller Relation to Subscriber:Self Name:Yenny Miller Payer ID:[id number] Group ID:[id number] Type:Not on file Address: [address] [place] [address] MEDICA[place] - [place]
--- OUTSIDE RECORDS SUMMARY | 2025-05-29 21:46 | XMS_ITS | Encounter Summary ---
Author Organization [employer] [facility] Prior to 04/19/2024 Address [address] [place] [address] Care Team Providers Care Coal Inspector Name Role Phone Shanna Álvarez MD Unavailable [phone] Marina Love MD Primary Care Provider [phone] Community, Pcp Primary Care Provider Unavailabl e [facility], Pcp Primary Care Provider Unavailcresencio e Dejah Peoples DNP Unavailable [phone] Reason for Visit * Reason Comments E-prescribe Rx Request Encounter Details Date Type Department Care Team Description 10/15/2021 Refill Gastroenterology [facility] [address] [facility] [address] [place] [phone] PA-C E-prescribe Rx Request Social [...] on filedocumented in this encounter Care Teams Coal Inspector Relationship Specialty Start Date End Date Marina Love MD [address] [place] [address] PCP - General Internal Medicine 04/05/21 10/20/21 [facility], Pcp [address] [place], [place] [phone] PCP - General Internal Medicine 10/21/21 08/10/22 [facility], Pcp [address] [place], [place] [phone] PCP - General Internal Medicine 08/11/22 Shanna Álvarez MD Specialist Cardiology 02/10/21 Dejah Peoples, DILIP [address] [place] [address] Specialist Nurse Practitioner [facility] 02/28/24 documented as of this encounter
--- OUTSIDE RECORDS SUMMARY | 2025-05-29 21:46 | XMS_ITS | Encounter Summary ---
Author Organization [facility] Prior to 04/19/2024 Address [address] [place] [address] Care Team Providers Care Lye Peel Operator Name Role Phone Sony Milton MD Primary Care Provider Unavailabl e Aneudy Ness MD Primary Care Provider [phone] Tiffanie Ding MD Primary Care Provider Un available Jade Plata MD Primary Care Provider Unavail able Shanna Álvarez MD Unavailable [phone] Marina Love MD Primary Care Provider [phone] Community, Pcp Primary Care Provider Unavailabl e Community, Pcp Primary Care Provider Unavailabl e Dejah Peoples DNP Unavailable [phone] Encounter Details Date Type Department Care Team Description 10/31/2012 [facility] Medical [facility] [address] [place] [id number] Abstract, Provider Social History Tobacco Use Types [...] on filedocumented in this encounter Care Teams Lye Peel Operator Relationship Specialty Start Date End Date Sony Milton MD PCP - General Cardiovascular Disease 04/30/14 10/11/15 Aneudy Ness MD [address] [place] [address] PCP - General Internal Medicine 10/12/15 06/16/16 Tiffanie Ding MD [address] [place] [address] PCP - General Internal Medicine 06/17/16 04/07/19 Jade Plata MD [address] [place] [address] PCP - General Internal Medicine 04/08/19 04/04/21 Marina Love MD [address] [place] [address] PCP - General Internal Medicine 04/05/21 10/20/21 [facility], Pcp [address] [place] [address] PCP - General Internal Medicine 10/21/21 08/10/22 [facility], Pcp [address] [place] [address] PCP - General Internal Medicine 08/11/22 Shanna Álvarez MD [address] [place] [address] Specialist Cardiology 02/10/21 Dejah Peoples DNP [address] [place] [address] Specialist Nurse Practitioner Family 02/28/24 documented as of this encounter
--- OUTSIDE RECORDS SUMMARY | 2025-05-29 21:46 | XMS_ITS | Encounter Summary ---
Author Organization [facility] Prior to 04/19/2024 Address [address] [place] [address] Care Team Providers Care Tab Cutter Name Role Phone Shanna Álvarez MD Unavailable [phone] [facility], Pcp Primary Care Provider Dejah Elliott DNP Unavailable [phone] Encounter Details Date Type Department Care Team Description 01/02/2024 Hospital Medical Records [address] [place] [address] [facility] Social History Tobacco Use Types Packs/Day [...] on filedocumented in this encounter Care Teams Tab Cutter Relationship Specialty Start Date End Date Community, Pcp PCP - General Internal Medicine 08/11/22 Shanna Álvarez MD Specialist Cardiology 02/10/21 Dejah Peoples DNP Specialist Nurse Practitioner Family 02/28/24 documented as of this encounter
--- OUTSIDE RECORDS SUMMARY | 2025-05-29 21:46 | XMS_ITS | Encounter Summary ---
Author Organization [facility] Prior to 04/19/2024 Address [address] [place] [address] Care Team Providers Care Transit Planning Director Name Role Phone Sony Milton MD Primary Care Provider Unavailabl e Aneudy Ness MD Primary Care Provider [phone] Tiffanie Ding MD Primary Care Provider Un available Jade Plata MD Primary Care Provider Unavail able Shanna Álvarez MD Unavailable [phone] Marina Love MD Primary Care Provider Community, Pcp Primary Care Provider Unavailabl e Community, Pcp Primary Care Provider Unavailabl e Dejah Peoples DNP Unavailable [phone] Encounter Details Date Type Department Care Team Description 02/04/2009 [facility] Medical Records [address] [place] [address] Abstract, Provider Social History Tobacco Use Types [...] on filedocumented in this encounter Care Teams Transit Planning Director Relationship Specialty Start Date End Date Sony Milton MD PCP - General Cardiovascular Disease 04/30/14 10/11/15 Aneudy Ness MD [address] [place] [address] PCP - General Internal Medicine 10/12/15 06/16/16 Tiffanie Ding MD [address] [place] [address] PCP - General Internal Medicine 06/17/16 04/07/19 Jade Plata MD [address] [place] [address] PCP - General Internal Medicine 04/08/19 04/04/21 Marina Love MD [address] [place] [address] PCP - General Internal Medicine 04/05/21 10/20/21 [facility], Pcp [address] [place] [address] PCP - General Internal Medicine 10/21/21 08/10/22 [facility], Pcp [address] [place] [address] PCP - General Internal Medicine 08/11/22 Shanna Álvarez MD [address] [place] [address] Specialist Cardiology 02/10/21 Dejah Peoples DNP [address] [place] [address] Specialist Nurse Practitioner Family 02/28/24 documented as of this encounter
--- OUTSIDE RECORDS SUMMARY | 2025-05-29 21:46 | XMS_ITS | Encounter Summary ---
Author Organization [facility] Prior to 04/19/2024 Address [address] [place] [address] Care Team Providers Care Occupational Therapist'S Assistant Name Role Phone Shanna Álvarez MD Unavailable [phone] Marina Love MD Primary Care Provider [phone] Community, Pcp Primary Care Provider Unavailabl e [facility], Pcp Primary Care Provider Unavailcresencio e Dejah Peoples DNP Unavailable Reason for Visit * Reason Comments E-prescribe Rx Request Encounter Details Date Type Department Care Team Description 09/20/2021 Refill Gastroenterology [facility] [address] [facility] [address] [place] [phone] PA-C E-prescribe Rx Request Social [...] on filedocumented in this encounter Care Teams Occupational Therapist'S Assistant Relationship Specialty Start Date End Date Marina Love MD [address] [place] [address] PCP - General Internal Medicine 04/05/21 10/20/21 [facility], Pcp [address] [place], [place] [phone] PCP - General Internal Medicine 10/21/21 08/10/22 [facility], Pcp [address] [place], [place] [address] PCP - General Internal Medicine 08/11/22 Shanna Álvarez MD Specialist Cardiology 02/10/21 Dejah Peoples, DILIP [address] [place] [address] Specialist Nurse Practitioner [facility] 02/28/24 documented as of this encounter
--- OUTSIDE RECORDS SUMMARY | 2025-05-29 21:46 | XMS_ITS | Encounter Summary ---
Author Organization [email or web address] [facility] Prior to 04/19/2024 Address [address] [place] [address] Care Team Providers Care Compatibility Test Engineer Name Role Phone Shanna Álvarez MD Unavailable [phone] Marina Love MD Primary Care Provider [phone] [facility], Pcp Primary Care Provider Unavailabl [facility], Pcp Primary Care Provider Unavailformerly [facility] e Dejah Peoples DNP Unavailable [phone] Encounter Details Date Type Department Care Team Description 09/03/2021 Telephone Gastroenterology - Cable [address] [facility] [address] [place] [address] PA-C Social History Tobacco Use [...] Miscellaneous Notes * Telephone Encounter - Wendy Mary - 09/03/2021 8:53 AM EDT Spoke to [...] on filedocumented in this encounter Care Teams Compatibility Test Engineer Relationship Specialty Start Date End Date Marina Love MD [address] [place] [address] PCP - General Internal Medicine 04/05/21 10/20/21 [facility], Pcp [address] [place], [place] [phone] PCP - General Internal Medicine 10/21/21 08/10/22 [facility], Pcp [address] [place], [place] [phone] PCP - General Internal Medicine 08/11/22 Shanna Álvarez MD Specialist Cardiology 02/10/21 Dejah Peoples DNP [address] [place], [place] [phone] Specialist Nurse Practitioner Family 02/28/24 documented as of this encounter
--- OUTSIDE RECORDS SUMMARY | 2025-05-29 21:47 | XMS_ITS | Encounter Summary ---
Author Organization [employer] [facility] Prior to 04/19/2024 Address [address] [place] [address] Care Team Providers Care Art Class Model Name Role Phone Jade Plata MD Primary Care Provider Unavail able Shanna Álvarez MD Unavailable [phone] Marina Love MD Primary Care Provider [phone] [facility], Pcp Primary Care Provider Unavailabl e [facility], Pcp Primary Care Provider Unavailabl e Dejah Peoples [facility] Unavailable [phone] Encounter Details Date Type Department Care Team Description 02/03/2020 Orders Only Adult Medicine [address] [address] Jade Plata MD Pulsatile neck mass Social [...] mass documented in this encounter Care Teams Art Class Model Relationship Specialty Start Date End Date Jade Plata MD PCP - General Internal Medicine 04/08/19 04/04/21 Marina Love MD [address] [place] [address] [phone] PCP - General Internal Medicine 04/05/21 10/20/21 [facility], Pcp [address] [place] [address] PCP - General Internal Medicine 10/21/21 08/10/22 [facility], Pcp [address] [place] [address] PCP - General Internal Medicine 08/11/22 Shanna Álvarez MD Specialist Cardiology 02/10/21 Dejah Peoples, DILIP [address] [place] [address] Specialist Nurse Practitioner Family 02/28/24 documented as of this encounter
--- OUTSIDE RECORDS SUMMARY | 2025-05-29 21:47 | XMS_ITS | Encounter Summary ---
Author Organization [employer] [facility] Prior to 04/19/2024 Address [address] [place] [address] Care Team Providers Care Church History Professor Name Role Phone Tiffanie Ding MD Primary Care Provider Un available Jade Plata MD Primary Care Provider Unavail able Shanna Álvarez MD Unavailable [phone] Marina Love MD Primary Care Provider [phone] [facility], Pcp Primary Care Provider Unavailabl e [facility], Pcp Primary Care Provider Unavailabl e Dejah Peoples [facility] Unavailable [phone] Reason for Visit * Reason Onset Date Comments REFERRAL 07/26/2016 colonoscopy Encounter Details Date Type Department Care Team Description 07/26/2016 Telephone Gastroenterology - [address] [id number] Sandeep Daily MD REFERRAL (colonoscopy) Social History [...] book colonoscopy, can see anyone. Pt is palestinian speaking. * Telephone Encounter - Sandeep Daily MD - 07/26/2016 1:52 PM EST The patient underwent screening colonoscopy by Dr. Shahzad Fregoso on 12 December 2006 at the [facility]. Low technical difficulty procedure under moderate sedation that was negative. He recommended colonoscopy again for her in 10 years. She can be scheduled for screening colonoscopy routinely here in our office endoscopy unit. * Telephone Encounter - Una Cedeño - 07/26/2016 1:42 PM EST Pt was referred to us for a colonoscopy, pt says she had one done 10 yrs ago at [facility]. Notes were requested, put in in basket. Can you review to see if we need to book at hospital or here, thank you! documented in this encounter Plan of Treatment Not on file documented as of this encounter Visit Diagnoses Not on filedocumented in this encounter Care Teams Church History Professor Relationship Specialty Start Date End Date Tiffanie Ding MD PCP - General Internal Medicine 06/17/1604/07 Jade Plata MD PCP - General Internal Medicine 04/08/19 04/04/21 Marina Love MD [address] [place] [address] PCP - General Internal Medicine 04/05/21 10/20/21 [facility], Pcp [address] [place] [address] PCP - General Internal Medicine 10/21/21 08/10/22 [facility], Pcp [address] [place] [address] PCP - General Internal Medicine 08/11/22 Shanna Álvarez MD Specialist Cardiology 02/10/21 Dejah Peoples, DILIP [address] [place] [address] Specialist Nurse Practitioner Family 02/28/24 documented as of this encounter
--- OUTSIDE RECORDS SUMMARY | 2025-05-29 21:47 | XMS_ITS | Encounter Summary ---
Author Organization [employer] [facility] Prior to 04/19/2024 Address [address] [place] [address] Care Team Providers Care Cable Machine Operator Name Role Phone Jade Plata MD Primary Care Provider Unavail able Shanna Álvarez MD Unavailable [phone] Marina Love MD Primary Care Provider [phone] [facility], Pcp Primary Care Provider Unavailabl e [facility], Pcp Primary Care Provider Unavailabl e Dejah Peoples DNP Unavailable [phone] Encounter Details Date Type Department Care Team Description 01/07/2021 [facility] Medical Records [address] [place] [address] Social History Tobacco Use Types Packs/Day Years [...] on filedocumented in this encounter Care Teams Cable Machine Operator Relationship Specialty Start Date End Date Jade Plata MD PCP - General Internal Medicine 04/08/19 04/04/21 Marina Love MD [address] [place] [address] PCP - General Internal Medicine 04/05/21 10/20/21 [facility], Pcp [address] [place] [address] PCP - General Internal Medicine 10/21/21 08/10/22 [facility], Pcp [address] [place] [address] PCP - General Internal Medicine 08/11/22 Shanna Álvarez MD Specialist Cardiology 02/10/21 Dejah Peoples DNP [address] [place] [address] Specialist Nurse Practitioner Family 02/28/24 documented as of this encounter
--- OUTSIDE RECORDS SUMMARY | 2025-05-29 21:47 | XMS_ITS | Encounter Summary ---
Author Organization [employer] [facility] Prior to 04/19/2024 Address [address] [place] [address] Care Team Providers Care Farm Planner Name Role Phone Jade Plata MD Primary Care Provider Unavail able Shanna Álvarez MD Unavailable [phone] Marina Love MD Primary Care Provider [phone] [facility], Pcp Primary Care Provider Unavailabl e [facility], Pcp Primary Care Provider UnavailDejah Jacobs [facility] Unavailable Encounter Details Date Type Department Care Team Description 03/24/2021 [facility] Medical Records [address] [place] [address] Abstract, Provider Social History Tobacco Use Types [...] on filedocumented in this encounter Care Teams Farm Planner Relationship Specialty Start Date End Date Jade Plata MD PCP - General Internal Medicine 04/08/19 04/04/21 Marina Love MD [address] [place] [address] [phone] PCP - General Internal Medicine 04/05/21 10/20/21 [facility], Pcp [address] [place] [address] PCP - General Internal Medicine 10/21/21 08/10/22 [facility], Pcp [address] [place] [address] PCP - General Internal Medicine 08/11/22 Shanna Álvarez MD Specialist Cardiology 02/10/21 Dejah Peoples, DILIP [address] [place] [address] Specialist Nurse Practitioner Family 02/28/24 documented as of this encounter
--- OUTSIDE RECORDS SUMMARY | 2025-05-29 21:47 | XMS_ITS | Encounter Summary ---
Author Organization [facility] Prior to 04/19/2024 Address [address] [place] [address] Care Team Providers Care Lumber Stacker Name Role Phone Jade Plata MD Primary Care Provider Unavail able Shanna Álvarez MD Unavailable [phone] Marina Love MD Primary Care Provider [phone] [facility], Pcp Primary Care Provider Unavailabl e [facility], Pcp Primary Care Provider Unavailabl e Dejah Peoples DNP Unavailable [phone] Encounter Details Date Type Department Care Team Description 09/13/2020 Orders Only Adult Medicine [address] [address] Jade Plata MD Type 2 diabetes mellitus [...] (HCC) documented in this encounter Care Teams Lumber Stacker Relationship Specialty Start Date End Date Jade Plata MD PCP - General Internal Medicine 04/08/19 04/04/21 Marina Love MD [address] [place], [place] [phone] PCP - General Internal Medicine 04/05/21 10/20/21 [facility], Pcp [address] [place] [address] PCP - General Internal Medicine 10/21/21 08/10/22 [facility], Pcp [address] [place], [place] [phone] PCP - General Internal Medicine 08/11/22 Shanna Álvarez MD Specialist Cardiology 02/10/21 Dejah Peoples, DILIP [address] [place] [address] Specialist Nurse Practitioner [place] [facility] 02/28/24 documented as of this encounter
--- OUTSIDE RECORDS SUMMARY | 2025-05-29 21:47 | XMS_ITS | Encounter Summary ---
Author Organization [employer] [facility] Prior to 04/19/2024 Address [address] [place] [address] Care Team Providers Care Glass Cutting Machine Operator Name Role Phone Jade Plata MD Primary Care Provider Unavail able Shanna Álvarez MD Unavailable [phone] Marina Love MD Primary Care Provider [phone] [facility], Pcp Primary Care Provider Unavailabl e [facility], Pcp Primary Care Provider UnavailDejah Jacobs [facility] Unavailable [phone] Encounter Details Date Type Department Care Team Description 08/11/2020 [facility] Medical Records [address] [place] [address] Abstract, Provider Social History Tobacco Use Types [...] on filedocumented in this encounter Care Teams Glass Cutting Machine Operator Relationship Specialty Start Date End Date Jade Plata MD PCP - General Internal Medicine 04/08/19 04/04/21 Marina Love MD [address] [place] [address] [phone] PCP - General Internal Medicine 04/05/21 10/20/21 [facility], Pcp [address] [place] [address] PCP - General Internal Medicine 10/21/21 08/10/22 [facility], Pcp [address] [place] [address] PCP - General Internal Medicine 08/11/22 Shanna Álvarez MD Specialist Cardiology 02/10/21 Dejah Peoples, DILIP [address] [place] [address] Specialist Nurse Practitioner Family 02/28/24 documented as of this encounter
--- OUTSIDE RECORDS SUMMARY | 2025-05-29 21:47 | XMS_ITS | Encounter Summary ---
Author Organization [employer] [facility] Prior to 04/19/2024 Address [address] [place] [address] Care Team Providers Care Companion Name Role Phone Jade Plata MD Primary Care Provider Unavail able Shanna Álvarez MD Unavailable [phone] Marina Love MD Primary Care Provider [phone] [facility], Pcp Primary Care Provider Unavailabl e [facility], Pcp Primary Care Provider Unavailabl e Dejah Peoples [facility] Unavailable Encounter Details Date Type Department Care Team Description 05/26/2020 [facility] Medical Records [address] [place] [address] Social History Tobacco Use Types Packs/Day Years [...] on filedocumented in this encounter Care Teams Companion Relationship Specialty Start Date End Date Jade Plata MD PCP - General Internal Medicine 04/08/19 04/04/21 Marina Love MD [address] [place] [address] PCP - General Internal Medicine 04/05/21 10/20/21 [facility], Pcp [address] [place], [place] [phone] PCP - General Internal Medicine 10/21/21 08/10/22 [facility], Pcp [address] [place], [place] [phone] PCP - General Internal Medicine 08/11/22 Shanna Álvarez MD Specialist Cardiology 02/10/21 Dejah Peoples, DILIP [address] [place] [address] Specialist Nurse Practitioner Family 02/28/24 documented as of this encounter
--- OUTSIDE RECORDS SUMMARY | 2025-05-29 21:47 | XMS_ITS | Encounter Summary ---
Author Organization [employer] [facility] Prior to 04/19/2024 Address [address] [place] [address] Care Team Providers Care Venetian Blind Maker Name Role Phone Jade Plata MD Primary Care Provider Unavail able Shanna Álvarez MD Unavailable [phone] Marina Love MD Primary Care Provider [phone] [facility], Pcp Primary Care Provider Unavailabl e [facility], Pcp Primary Care Provider Unavailabl e Dejah Peoples DNP Unavailable [phone] Encounter Details Date Type Department Care Team Description 06/25/2020 Coat Operator Report Medical Records [address] [place] [address] Nellie Aranda [address] [place] [address] Social History Tobacco Use Types Packs/Day Years [...] on filedocumented in this encounter Care Teams Venetian Blind Maker Relationship Specialty Start Date End Date Jade Plata MD PCP - General Internal Medicine 04/08/19 04/04/21 Marina Love MD [address] [place], [place] [phone] PCP - General Internal Medicine 04/05/21 10/20/21 [facility], Pcp [address] [place], [place] [phone] PCP - General Internal Medicine 10/21/21 08/10/22 [facility], Pcp [address] [place], [place] [phone] PCP - General Internal Medicine 08/11/22 Shanna Álvarez MD Specialist Cardiology 02/10/21 Dejah Peoples, DILIP [address] [place] [address] Specialist Nurse Practitioner Family 02/28/24 documented as of this encounter
--- OUTSIDE RECORDS SUMMARY | 2025-05-29 21:47 | XMS_ITS | Encounter Summary ---
Author Organization [employer] [facility] Prior to 04/19/2024 Address [address] [place] [address] Care Team Providers Care Field Agent Name Role Phone Jade Plata MD Primary Care Provider Unavail able Shanna Álvarez MD Unavailable [phone] Marina Love MD Primary Care Provider [phone] [facility], Pcp Primary Care Provider Unavailabl e [facility], Pcp Primary Care Provider UnavailDejah Jacobs DNP Unavailable [phone] Encounter Details Date Type Department Care Team Description 08/03/2019 [facility] Medical Records [address] [place] [address] Social History Tobacco Use Types Packs/Day Years [...] on filedocumented in this encounter Care Teams Field Agent Relationship Specialty Start Date End Date Jade Plata MD PCP - General Internal Medicine 04/08/19 04/04/21 Marina Love MD [address] [place] [address] [phone] PCP - General Internal Medicine 04/05/21 10/20/21 [facility], Pcp [address] [place] [address] PCP - General Internal Medicine 10/21/21 08/10/22 [facility], Pcp [address] [place] [address]73 PCP - General Internal Medicine 08/11/22 Shanna Álvarez MD Specialist Cardiology 02/10/21 Dejah Peoples, DILIP [address] [place] [address] Specialist Nurse Practitioner Family 02/28/24 documented as of this encounter
--- OUTSIDE RECORDS SUMMARY | 2025-05-29 21:47 | XMS_ITS | Encounter Summary ---
Author Organization [employer] [facility] Prior to 04/19/2024 Address [address] [place] [address] Care Team Providers Care Auto Salvage Worker Name Role Phone Jade Plata MD Primary Care Provider Unavail able Shanna Álvarez MD Unavailable [phone] Marina Love MD Primary Care Provider [phone] [facility], Pcp Primary Care Provider Unavailabl e [facility], Pcp Primary Care Provider UnavailDejah Jacobs DNP Unavailable [phone] Encounter Details Date Type Department Care Team Description 01/07/2021 [facility] Medical Records [address] [place] [address] Karis Christie NP Social History Tobacco Use [...] filedocumented in this encounter Care Teams Auto Salvage Worker Relationship Specialty Start Date End Date Jade Plata MD PCP - General Internal Medicine 04/08/19 04/04/21 Marina oLve MD [address] [place] [address] [phone] PCP - General Internal Medicine 04/05/21 10/20/21 [facility], Pcp [address] [place] [address] PCP - General Internal Medicine 10/21/21 08/10/22 [facility], Pcp [address] [place] [address] PCP - General Internal Medicine 08/11/22 Shanna Álvarez MD Specialist Cardiology 02/10/21 Dejah Peoples, DILIP [address] [place] [address] Specialist Nurse Practitioner Family 02/28/24 documented as of this encounter
--- OUTSIDE RECORDS SUMMARY | 2025-05-29 21:47 | XMS_ITS | Encounter Summary ---
Author Organization [employer] [facility] Prior to 04/19/2024 Address [address] [place] [address] Care Team Providers Care Fruit And Vegetable Packer Name Role Phone Jade Plata MD Primary Care Provider Unavail able Shanna Álvarez MD Unavailable [phone] Marina Love MD Primary Care Provider [phone] [facility], Pcp Primary Care Provider Unavailabl e [facility], Pcp Primary Care Provider UnavailDejah Jacobs [facility] Unavailable [phone] Encounter Details Date Type Department Care Team Description 09/23/2019 Process Control Supervisor Report Medical Records [address] [place] [address] [facility] Social History Tobacco Use Types Packs/Day [...] on filedocumented in this encounter Care Teams Fruit And Vegetable Packer Relationship Specialty Start Date End Date Jade Plata MD PCP - General Internal Medicine 04/08/19 04/04/21 Marina Love MD [address] [place] [address] PCP - General Internal Medicine 04/05/21 10/20/21 [facility], Pcp [address] [place] [address] PCP - General Internal Medicine 10/21/21 08/10/22 [facility], Pcp [address] [place] [address] PCP - General Internal Medicine 08/11/22 Shanna Álvarez MD Specialist Cardiology 02/10/21 Dejah Peoples, DILIP [address] [place] [address] Specialist Nurse Practitioner Family 02/28/24 documented as of this encounter
--- OUTSIDE RECORDS SUMMARY | 2025-05-29 21:47 | XMS_ITS | Encounter Summary ---
Author Organization [employer] [facility] Prior to 04/19/2024 Address [address] [place] [address] Care Team Providers Care Legal Instruments Examiner Name Role Phone Jade Plata MD Primary Care Provider Unavail able Shanna Álvarez MD Unavailable [phone] Marina Love MD Primary Care Provider [phone] [facility], Pcp Primary Care Provider Unavailabl e [facility], Pcp Primary Care Provider UnavailDejah Jacobs DNP Unavailable [phone] Encounter Details Date Type Department Care Team Description 01/29/2020 Documentation Writer Report Medical Records [address] [place] [address] Tommy Stacy Social History Tobacco Use Types [...] filedocumented in this encounter Care Teams Legal Instruments Examiner Relationship Specialty Start Date End Date Jade Plata MD PCP - General Internal Medicine 04/08/19 04/04/21 Marina Love MD [address] [place] [address] PCP - General Internal Medicine 04/05/21 10/20/21 [facility], Pcp [address] [place] [address] PCP - General Internal Medicine 10/21/21 08/10/22 [facility], Pcp [address] [place] [address] PCP - General Internal Medicine 08/11/22 Shanna Álvarez MD Specialist Cardiology 02/10/21 Dejah Peoples, DILIP [address] [place] [address] Specialist Nurse Practitioner Family 02/28/24 documented as of this encounter
--- OUTSIDE RECORDS SUMMARY | 2025-05-29 21:47 | XMS_ITS | Encounter Summary ---
Author Organization [employer] [facility] Prior to 04/19/2024 Address [address] [place] [address] Care Team Providers Care Strategic Partnership Specialist Name Role Phone Jade Plata MD Primary Care Provider Unavail able Shanna Álvarez MD Unavailable [phone] Marina Love MD Primary Care Provider [phone] [facility], Pcp Primary Care Provider Unavailabl e [facility], Pcp Primary Care Provider Unavailabl e Dejah Peoples [facility] Unavailable [phone] Encounter Details Date Type Department Care Team Description 09/08/2020 Spring Setter Report Medical Records [address] [place] [address] Nellie Aranda [address] [place] [address] Social History Tobacco Use Types Packs/Day Years [...] on filedocumented in this encounter Care Teams Strategic Partnership Specialist Relationship Specialty Start Date End Date Jade Plata MD PCP - General Internal Medicine 04/08/19 04/04/21 Marina Love MD [address] [place] [address] [phone] PCP - General Internal Medicine 04/05/21 10/20/21 [facility], Pcp [address] [place] [address]698 PCP - General Internal Medicine 10/21/21 08/10/22 [facility], Pcp [address] [place] [address]474 PCP - General Internal Medicine 08/11/22 Shanna Álvarez MD Specialist Cardiology 02/10/21 Dejah Peoples, DILIP [address] [place] [address] Specialist Nurse Practitioner Family 02/28/24 documented as of this encounter
--- OUTSIDE RECORDS SUMMARY | 2025-05-29 21:47 | XMS_ITS | Encounter Summary ---
Author Organization [employer] [facility] Prior to 04/19/2024 Address [address] [place] [address] Care Team Providers Care Coastal And Estuary Specialist Name Role Phone Tiffanie Ding MD Primary Care Provider Un available Jade Plata MD Primary Care Provider Unavail able Shanna Álvarez MD Unavailable [phone] Marina Love MD Primary Care Provider [phone] [facility], Pcp Primary Care Provider Unavailabl e [facility], Pcp Primary Care Provider Unavailabl e Dejah Peoples DNP Unavailable [phone] Encounter Details Date Type Department Care Team Description 06/29/2018 Telephone Gastroenterology - Exchange [address] [facility] [address] [place] [address] Felicia Reaves MD Social History [...] on filedocumented in this encounter Care Teams Coastal And Estuary Specialist Relationship Specialty Start Date End Date Tiffanie Ding MD PCP - General Internal Medicine 06/17/1604/07 Jdae Plata MD PCP - General Internal Medicine 04/08/19 04/04/21 Marina Love MD [address] [place] [address] PCP - General Internal Medicine 04/05/21 10/20/21 [facility], Pcp [address] [place], [place] [phone] PCP - General Internal Medicine 10/21/21 08/10/22 [facility], Pcp [address] [place], [place] [phone] PCP - General Internal Medicine 08/11/22 Shanna Álvarez MD Specialist Cardiology 02/10/21 Dejah Peoples, DILIP [address] [place] [address] Specialist Nurse Practitioner Family 02/28/24 documented as of this encounter
--- OUTSIDE RECORDS SUMMARY | 2025-05-29 21:47 | XMS_ITS | Encounter Summary ---
Author Organization [facility] Address [address] [place] [address] Care Team Providers Care Inspector Welded Parts Name Role Phone Unavailable Primary Care Provider Unavailabl e Encounter Details Date Type Department Care Team (Late st Contact Info) Description 05/27/2025 Telephone [facility] Hematology Oncology [address] [place] [address] Jaunis Ramirez MA Social History Tobacco Use Types Packs/Day Years [...] as of this encounter Progress Notes * Gela Bell MA - 05/27/2025 11:22 AM EST Schedule appt for 05/28/25 ,patient awared * Erasto Santana MD - 05/27/2025 10:58 AM EST Please put in with Luci tomorrow * Juanis Ramirez MA - 05/27/2025 10:30 AM EST Patient would like a sooner appt with Md - states the hormone medication is making her legs swollenfor about 2 weeks now and complains of kidney pain that started about a week ago. Patient states itis painful to get up from bed. Also complains of swollen breasts. Mary [phone] - northern irish speaking patient documented in this encounter Plan of Treatment Upcoming Encounters Date Type Department Care Team (Late st Contact Info) Description 07/11/2025 11:45 AM EST Office Visit [facility] Hematology Oncology [address] [place] [id number] Ana Taylor PA [address] [place] [address] 08/25/2025 10:00 AM EDT Office Visit General Surgery - [place] [address] [facility] [address] [place] [phone] Jalen Ferguson MD [address] [place] [address] documented as of this encounter Visit Diagnoses Not on filedocumented in this encounter
--- OUTSIDE RECORDS SUMMARY | 2025-05-29 21:48 | XMS_ITS | Encounter Summary ---
Author Organization [facility] [facility] Prior to 04/19/2024 Address [address] [place] [address] Care Team Providers Care Banquet Server On Call Name Role Phone Jade Plata MD Primary Care Provider Unavail able Shanna Álvarez MD Unavailable [phone] Marina Love MD Primary Care Provider [phone] [facility], Pcp Primary Care Provider Unavailabl e [facility], Pcp Primary Care Provider Unavailabl e Dejah Peoples [facility] Unavailable [phone] Reason for Visit * Reason Comments E-prescribe Rx Request Encounter Details Date Type Department Care Team Description 07/11/2019 Refill Adult Medicine [address] [address] Jade Plata MD E-prescribe Rx Request Social [...] N/A Patients current insurance carrier is: Payor: [employer] F[employer] / Plan: [employer] / Product Type: MEDICAID RISK documented in this encounter Plan of Treatment Not on file documented as of this encounter Visit Diagnoses Diagnosis Epigastric pain Abdominal pain, epigastric Gastroesophageal reflux disease without esophagitis Esophageal reflux Old ID (myocardial infarction) Old myocardial infarction documented in this encounter Care Teams Banquet Server On Call Relationship Specialty Start Date End Date Jade Plata MD PCP - General Internal Medicine 04/08/19 04/04/21 Marina Love MD [address] [place] [address] PCP - General Internal Medicine 04/05/21 10/20/21 [facility], Pcp [address] [place], [place] [id number] PCP - General Internal Medicine 10/21/21 08/10/22 [facility], Pcp [address] [place], [place] [id number] PCP - General Internal Medicine 08/11/22 Shanna Álvarez MD Specialist Cardiology 02/10/21 Dejah Peoples DNP [address] [place], [place] [phone] Specialist Nurse Practitioner Family 02/28/24 documented as of this encounter
--- OUTSIDE RECORDS SUMMARY | 2025-05-29 21:48 | XMS_ITS | Encounter Summary ---
Author Organization [facility] Prior to 04/19/2024 Address [address] [place] [address] Care Team Providers Care Shank Taper Name Role Phone Jade Plata MD Primary Care Provider Unavail able Shanna Álvarez MD Unavailable [phone] Marina Love MD Primary Care Provider [phone] [facility], Pcp Primary Care Provider Unavailabl e [facility], Pcp Primary Care Provider UnavailDejah Jacobs DNP Unavailable [phone] Encounter Details Date Type Department Care Team Description 07/08/2019 Radio Television Technical Director Report Medical Records [address] [place] [address] Marci Payne [address] [place] [address] Social History Tobacco Use Types Packs/Day Years [...] on filedocumented in this encounter Care Teams Shank Taper Relationship Specialty Start Date End Date Jade Plata MD PCP - General Internal Medicine 04/08/19 04/04/21 Marina Love MD [address] [place] [address] [id number] PCP - General Internal Medicine 04/05/21 10/20/21 [facility], Pcp [address] [place] [address] PCP - General Internal Medicine 10/21/21 08/10/22 [facility], Pcp [address] [place] [address] PCP - General Internal Medicine 08/11/22 Shanna Álvarez MD Specialist Cardiology 02/10/21 Dejah Peoples, DILIP [address] [place] [address] Specialist Nurse Practitioner Family 02/28/24 documented as of this encounter
--- OUTSIDE RECORDS SUMMARY | 2025-05-29 21:48 | XMS_ITS | Encounter Summary ---
Author Organization [facility] [facility] Prior to 04/19/2024 Address [address] [place] [address] Care Team Providers Care Configuration Analyst Name Role Phone Jade Plata MD Primary Care Provider Unavail able Shanna Álvarez MD Unavailable [phone] Marina Love MD Primary Care Provider [phone] [facility], Pcp Primary Care Provider Unavailabl e [facility], Pcp Primary Care Provider Unavailabl e Dejah Peoples DNP Unavailable [phone] Encounter Details Date Type Department Care Team Description 07/01/2019 Utility Bill Collector Report Medical Records [address] [place] [address] Nellie Aranda [address] [place] [address] Social History Tobacco Use Types Packs/Day Years [...] on filedocumented in this encounter Care Teams Configuration Analyst Relationship Specialty Start Date End Date Jade Plata MD PCP - General Internal Medicine 04/08/19 04/04/21 Marina Love MD [address] [place] [address] [phone] PCP - General Internal Medicine 04/05/21 10/20/21 [facility], Pcp [address] [place] [id number] PCP - General Internal Medicine 10/21/21 08/10/22 [facility], Pcp [address] [place] [address] PCP - General Internal Medicine 08/11/22 Shanna Álvarez MD Specialist Cardiology 02/10/21 Dejah Peoples, DILIP [address] [place] [address] Specialist Nurse Practitioner Family 02/28/24 documented as of this encounter
--- OUTSIDE RECORDS SUMMARY | 2025-05-29 21:48 | XMS_ITS | Encounter Summary ---
Author Organization [facility] Prior to 04/19/2024 Address [address] [place] [address] Care Team Providers Care Commercial Production Editor Name Role Phone Jade Plata MD Primary Care Provider Unavail able Shanna Álvarez MD Unavailable [phone] Marina Love MD Primary Care Provider [phone] [facility], Pcp Primary Care Provider Unavailabl e [facility], Pcp Primary Care Provider Unavailabl e Dejah Peoples DNP Unavailable [phone] Encounter Details Date Type Department Care Team Description 07/15/2019 Junior Art Director Report Medical Records [address] [place] [address] Nellie Aranda [address] [place] [address] Social History Tobacco Use Types Packs/Day Years [...] on filedocumented in this encounter Care Teams Commercial Production Editor Relationship Specialty Start Date End Date Jade Plata MD PCP - General Internal Medicine 04/08/19 04/04/21 Marina Love MD [address] [place] [address] [id number] PCP - General Internal Medicine 04/05/21 10/20/21 [facility], Pcp [address] [place] [id number] PCP - General Internal Medicine 10/21/21 08/10/22 [facility], Pcp [address] [place] [phone] PCP - General Internal Medicine 08/11/22 Shanna Álvarez MD Specialist Cardiology 02/10/21 Dejah Peoples, DILIP [address] [place] [address] Specialist Nurse Practitioner Family 02/28/24 documented as of this encounter
== END 2025-05-29 15:22 | disposition home or self-care (01) ==
LOC: HO.HMCFM 14:17
PROVIDERS: PCP Nurse Practitioner Family; Visit Provider Physician Assistant Medical
DX: E11.65 Type 2 diabetes mellitus with hyperglycemia (principal); Z79.4 Long term (current) use of insulin